=== PATIENT | male | born 1950 | race Caucasian/White ===

== ENCOUNTER → 2016-11-10 | Outpatient (CLI) | payer MEDICARE ==
--- NOTE | 2016-11-10 12:21 | XR ---
EXAMINATION TYPE: XR chest 2V DATE OF EXAM: 11/10/2016 11:40 AM COMPARISON: NONE INDICATION: Short of breath, history of COPD TECHNIQUE: 2 view chest FINDINGS: The heart size is normal. The pulmonary vasculature is normal. The lungs are clear. There is hyperinflation flattened diaphragms compatible COPD. Some minimal calcification may be along the right diaphragm. IMPRESSION: 1. COPD
== END | disposition home or self-care (01) ==
LOC: RADXRMAIN 11:20
PROVIDERS: ATTEND Internal Medicine Critical Care Medicine
DX: J44.9 Chronic obstructive pulmonary disease, unspecified (principal); I26.99 Other pulmonary embolism without acute cor pulmonale
CPT/HCPCS: 71020

== ENCOUNTER → 2017-01-18 | Day surgery (SDC) | payer MEDICARE ==
[2017-01-13 15:09] VITALS: BMI 35.2
[~2017-01-18] MED LIST: AMPICILLIN 1,000 MG in SODIUM CHLORIDE 0.9% 50 ML IVPB ONE; DEXAMETHASONE SOD PHOSPHATE 10 MG/ML 1 ML VIAL IV ONE; GENTAMICIN 160 MG in SODIUM CHLORIDE 0.9% 100 ML IVPB ONE; GENTAMICIN 80 MG in SODIUM CHLORIDE 0.9% 500 ML IRRIGATION ONE; HYDROcodone/APAP 7.5-325MG 1 EACH TAB PO ONE; HYDROmorphone (PF) 1 MG/ML ONE; HYDROmorphone 1 MG/ML 1 ML SYRINGE IVP PRN; LACTATED RINGERS 1,000 ML IV ONE; LACTATED RINGERS 1,000 ML IV SCH; LIDOCAINE 1% 20 ML VIAL (10MG/ML) FOR IV START INTRADERMA PRN; MIDAZOLAM 2 MG/2 ML VIAL IV PRN; MIDAZOLAM 2 MG/2 ML VIAL ONE; ONDANSETRON 4 MG/2 ML VIAL IVP ONE; PROPOFOL 10 MG/ML 20 ML VIAL IV ONE; SCOPOLAMINE 1.5MG/72HR PATCH TRANSDERM ONE; SUCCINYLCHOLINE CHLORIDE VIAL 200 MG/10 ML VIAL IV ONE; ePHEDrine 50 MG/ML 1 ML AMP ONE; fentaNYL (PF) 50 MCG/ML 2 ML AMP ONE
[2017-01-18 09:57] VITALS: RESP 16
--- NOTE | 2017-01-18 12:55 | P.OP ---
Date of Procedure: 01/18/17 Preoperative Diagnosis: Organic impotence Postoperative Diagnosis: Organic impotence Procedure(s) Performed: Insertion of AMS inflatable penile prosthesis surgeries CX size 15 cm +4 cm rear -tip clinical secretary, 65 mL balloon Implants: Anesthesia: [place] Surgeon: Justo Springer Estimated Blood Loss (ml): 50 Pathology: none sent Condition: stable Disposition: PACU Indications for Procedure: Patient is a 66-year-old gentleman with organic impotence who was failed all conservative measures of treatment comes for an inflatable penile prosthesis Operative Findings: Description of Procedure: Patient is brought to the operating suite and given a successful general endotracheal anesthesia. He is prepped and draped sterilely. An infrapubic incision is made from the base of the penis to just above the pubis. The rectus fascias identified and opened in the midline. The prevesical space is developed. A 65 mL reservoir is placed in the prevesical space with tubing brought out through the right external inguinal ring. The balloon was filled with 65 mL of saline. The rectus fascias closed with interrupted 0 PDS. Each corpora identified and cleaned. Bilateral corporotomies were made. The corpora dilated with Metzenbaum scissors and then Hegar dilators 9-13 proximally and distally. The length of the cylinders measured 10 cm proximal and 9 cm distal bilaterally. 15 cm implants with 4 cm rear-tip extenders will be used. Using the Chai needle and Alana introducer each cylinder is placed through the distal corpora. The proximal cylinders placed in the proximal corpora. Each cylinders inflated and the erection is appropriate without ST deformity. There is no buckling of the implant. The corporotomies are closed with running 3-0 PDS. I then placed the pump in the right hemiscrotum such the button is anterior. I connected the reservoir to the pump with straight connectors. The wound is closed with 3-0 chromic and 4-0 Monocryl. Loss is 50 mL. He tolerated procedure well be discharged home upon recovery. End of dictation
[2017-01-18 13:09] VITALS: TEMP 97.4
[2017-01-18 14:57] VITALS: BP 149/72; PULSE 96
== END ==
LOC: OR 08:55
PROVIDERS: ATTEND Urology
DX: N52.9 Male erectile dysfunction, unspecified (principal); I11.0 Hypertensive heart disease with heart failure; I50.9 Heart failure, unspecified; I34.0 Nonrheumatic mitral (valve) insufficiency; E78.00 Pure hypercholesterolemia, unspecified; M35.00 Sjogren syndrome, unspecified; K21.9 Gastro-esophageal reflux disease without esophagitis; N40.0 Benign prostatic hyperplasia without lower urinary tract symptoms; M19.90 Unspecified osteoarthritis, unspecified site; F90.9 Attention-deficit hyperactivity disorder, unspecified type; F41.9 Anxiety disorder, unspecified; F32.9 Major depressive disorder, single episode, unspecified; F43.10 Post-traumatic stress disorder, unspecified; J45.909 Unspecified asthma, uncomplicated; J44.9 Chronic obstructive pulmonary disease, unspecified; E78.2 Mixed hyperlipidemia; G47.30 Sleep apnea, unspecified; Z95.5 Presence of coronary angioplasty implant and graft; I73.9 Peripheral vascular disease, unspecified; I25.10 Atherosclerotic heart disease of native coronary artery without angina pectoris; I42.9 Cardiomyopathy, unspecified; E11.9 Type 2 diabetes mellitus without complications; Z79.82 Long term (current) use of aspirin; Z79.01 Long term (current) use of anticoagulants; Z79.51 Long term (current) use of inhaled steroids; Z79.899 Other long term (current) drug therapy; Z91.011 Allergy to milk products; Z88.8 Allergy status to other drugs, medicaments and biological substances; Z91.018 Allergy to other foods; Z91.09 Other allergy status, other than to drugs and biological substances; Z87.891 Personal history of nicotine dependence
CPT/HCPCS: 54405; C1713; C1813; J2250; J0330; J1580 ×2; J1100; J2405; J3010; J0290; J1170; J2704

== ENCOUNTER 2017-01-31 15:25 | Emergency (ER) | payer MEDICARE ==
--- NOTE | 2017-01-31 16:00 | ED ---
Extremity Problem HPI - General Chief complaint: Extremity Problem,Nontraumatic Stated complaint: Poss blood clot Time Seen by Provider: 01/31/17 15:41 Source: patient, RN notes reviewed Mode of arrival: ambulatory Limitations: no limitations - History of Present Illness Initial comments: Patient is a 66-year-old male presents to the emergency room for evaluation of left ankle pain. Patient states pain began yesterday. Patient states that he has some redness in his Achilles area and has pain while flexing and extending his ankle. 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 Patient states that he is on Xarelto. Patient states he's afraid that he has a blood clot. Patient does state that he had a penile implant about 2 weeks ago. Patient denies any issues or problems with his surgical procedure. Patient denies numbness or tingling in his toes. Patient denies any certain injury to his ankle. Patient denies any trauma to his ankle. Patient denies history of gout. Patient does admit he uses a repetitive motion with his ankle while getting out of his chair that could've aggravated his ankle. Patient denies fevers or chills. Patient denies headache or dizziness. Patient denies nausea or vomiting. - Related Data Home Medications Medication Instructions Recorded Confirmed Acetaminophen Tab [Tylenol] 1,000 mg PO Q6HR PRN 01/13/14 01/31/17 Multivitamin/Iron/Folic Acid 1 tab PO DAILY 01/13/14 01/31/17 [Centrum Complete Multivit Tab] Ascorbic Acid [Vitamin C] 500 mg PO DAILY 09/16/15 01/31/17 Aspirin EC [Ecotrin Low Dose] 81 mg PO DAILY 09/16/15 01/31/17 Betamethasone Dipropionate 1 applic TOPICAL DAILY PRN 09/16/15 01/31/17 [Diprolene AF 0.05% Cream] Budesonide-Formot 160-4.5 Mcg 2 puff INHALATION RT-BID 09/16/15 01/31/17 [Symbicort 160-4.5 Mcg Inhaler] Cholecalciferol [Vitamin D3] 5,000 unit PO DAILY 09/16/15 01/31/17 Testosterone Cypionate 200 mg IM Q14D 09/16/15 01/31/17 [Depo-Testosterone] Albuterol Sulfate [Proventil Hfa] 2 puff INHALATION RT-Q6H PRN 01/13/17 01/31/17 Mirabegron [Myrbetriq] 25 mg PO DAILY 01/13/17 01/31/17 Mirtazapine 30 mg PO HS 01/13/17 01/31/17 Nebivolol [Bystolic] 5 mg PO BID 01/13/17 01/31/17 Pseudoephedrine 12Hr [Sudafed 12Hr] 120 mg PO Q12H 01/13/17 01/31/17 Rivaroxaban [Xarelto] 20 mg PO DAILY 01/13/17 01/31/17 Tiotropium 18 Mcg/Puff [Spiriva] 1 cap INHALATION RT-DAILY 01/13/17 01/31/17 Atomoxetine HCl [Strattera] 40 mg PO DAILY 01/31/17 01/31/17 Atomoxetine HCl [Strattera] 60 mg PO DAILY 01/31/17 01/31/17 Loratadine [Claritin] 10 mg PO DAILY 01/31/17 01/31/17 Nitroglycerin Sl Tabs [Nitrostat] 0.4 mg SUBLINGUAL Q5M PRN 01/31/17 01/31/17 QUEtiapine FUMARATE [QUEtiapine 200 mg PO HS 01/31/17 01/31/17 FUMARATE ER] QUEtiapine [SEROquel] 50 mg PO HS 01/31/17 01/31/17 Rosuvastatin [Crestor] 20 mg PO HS 01/31/17 01/31/17 Spironolactone [Aldactone] 25 mg PO DAILY 01/31/17 01/31/17 Valsartan 320 mg PO DAILY 01/31/17 01/31/17 Venlafaxine HCl [Effexor] 150 mg PO BID 01/31/17 01/31/17 Previous Rx's Medication Instructions Recorded Esomeprazole Magnesium [NexIUM] 40 mg PO DAILY #30 capsule. 01/16/14 Furosemide [Lasix] 20 mg PO DAILY PRN #30 tablet 01/16/14 Allergies Allergy/AdvReac Type Severity Reaction Status Date / Time benzoic acid Allergy Mild Unknown Verified 01/31/17 16:12 corn Allergy Unknown Verified 01/31/17 16:12 epoxy resin Allergy Unknown Verified 01/31/17 16:12 milk Allergy Unknown Verified 01/31/17 16:12 wheat Allergy Unknown Verified 01/31/17 16:12 BASALM OF EDWARDO Allergy Mild Unknown Uncoded 09/17/15 09:16 DIALKYL THIOUREAS Allergy Mild Unknown Uncoded 09/17/15 09:16 DISPERSE BLUE 124 Allergy Mild Unknown Uncoded 09/17/15 09:16 RYAN GRASS Allergy Unknown Uncoded 01/31/17 16:12 neoprene Allergy Unknown Uncoded 01/13/17 14:44 Review of Systems ROS Statement: Those systems with pertinent positive or pertinent negative responses have been documented in the HPI. ROS Other: All systems not noted in ROS Statement are negative. Past Medical History Past Medical History: Coronary Artery Disease (CAD), Heart Failure, COPD, GERD/ Reflux, Hyperlipidemia, Hypertension, Myocardial Infarction (IA), Osteoarthritis (OA), Prostate Disorder, Skin Disorder, Sleep Apnea/CPAP/BIPAP, Vascular Disorder Additional Past Medical History / Comment(s): Right subclavian steal syndrome with paralysis of the right diaphragm, benign prostatic hypertrophy Last Myocardial Infarction Date:: 2008 History of Any Multi-Drug Resistant Organisms: None Reported Past Surgical History: Heart Catheterization, Joint Replacement, Orthopedic Surgery, Prostate Surgery Additional Past Surgical History / Comment(s): Bilateral HIP REPLACEMENT, PERRY KNEE REPLACEMENT, TURP, TRANSPORT OF THE SUBCLAVIAN, STENT OF THE SUBCLAVIAN. penile implant Past Anesthesia/Blood Transfusion Reactions: No Reported Reaction Past Psychological History: ADD/ADHD, Depression, PTSD Smoking Status: Former smoker Past Alcohol Use History: None Reported Past Drug Use History: None Reported - Past Family History Father Family Medical History: Cancer Additional Family Medical History / Comment(s): Father from mesothelioma lung cancer Mother Family Medical History: Hypertension Additional Family Medical History / Comment(s): Mother is living and is 88 yrs old General Exam - General Exam Comments Initial Comments: Sitting in exam room, no distress. Limitations: no limitations General appearance: alert, in no apparent distress Head exam: Present: atraumatic, normocephalic, normal inspection Eye exam: Present: normal appearance ENT exam: Present: normal exam Neck exam: Present: normal inspection Respiratory exam: Present: normal lung sounds bilaterally. Absent: respiratory distress Cardiovascular Exam: Present: regular rate, normal rhythm, normal heart sounds Right Lower Leg exam: Absent: tenderness Ankle exam: Present: full ROM, swelling (Swelling and erythema at the insertion site of the Achilles tendon. No fluctuance noted.). Absent: normal inspection Neurovascular tendon exam: Present: no vascular compromise. Absent: pulse deficit (2+ dorsal pedal and posterior tibial pulses), abnormal cap refill ( Capillary refill less than 2 seconds) Back exam: Present: normal inspection Neurological exam: Present: alert, oriented X3, CN II-XII intact, normal gait Psychiatric exam: Present: normal affect, normal mood Skin exam: Present: warm, dry, intact, normal color. Absent: rash Course Vital Signs 01/31/17 01/31/17 01/31/17 15:27 16:37 17:34 Temperature 98.1 F 98.5 F 98.3 F Pulse Rate 104 H 98 99 Respiratory 20 18 18 Rate Blood Pressure 153/86 137/72 129/89 O2 Sat by Pulse 96 92 L 93 L Oximetry Medical Decision Making - Medical Decision Making Patient is a 66-year-old male presents to the emergency room for evaluation of right ankle pain. Patient does have a history of DVTs. Patient is currently on Xarelto. Right lower extremity ultrasound negative for acute DVT. Right ankle x-ray: No acute bony abnormality. Findings at the insertion of the Achilles tendon as described, there may be tendinosis or partial tear. Patient will be placed in the OCL posterior splint and advised to follow-up with orthopedic nurse. Patient does have redness and swelling at the area. Advised patient if he notices more swelling and redness to return to the emergency room as soon as possible. Patient states he understands everything that was discussed with him. Case discussed with Dr. Anderson who also evaluated patient and agrees with treatment plan. - Radiology Data Radiology results: report reviewed, image reviewed Disposition Clinical Impression: Tendonitis, Achilles, right Disposition: HOME SELF-CARE Condition: Good Instructions: Achilles Tendinitis (ED) Additional Instructions: Rest, elevate and ice on and off for 10-15 minutes for the next 24-48 hours. Please follow-up with orthopedic nurse in 24-48 hours for reevaluation. If new symptoms develop or symptoms worsen, please return to the ER. Referrals: Bernabe Polo DO [Primary Care Provider] - 1-2 days Antonio Zambrano DO [Doctor of Osteopathic Medicine] - 1-2 days Time of Disposition: 17:34
[2017-01-31 16:43] VITALS: RESP 18
--- NOTE | 2017-01-31 16:44 | US ---
EXAMINATION TYPE: US venous doppler duplex LE RT DATE OF EXAM: 01/31/2017 4:30 PM COMPARISON: NONE CLINICAL HISTORY: 66-year-old male with Pain, swelling. SIDE PERFORMED: Right TECHNIQUE: The lower extremity deep venous system is examined utilizing real time linear array sonog ligia with graded compression, doppler sonography and color-flow sonography. FINDINGS: VESSELS IMAGED: External Iliac Vein (EIV) Common Femoral Vein Deep Femoral Vein Greater Saphenous Vein * Femoral Vein Popliteal Vein Small Saphenous Vein * Proximal Calf Veins (* superficial vessels) Right Leg: Appears negative for acute, occlusive DVT, some chronic changes, CFV at GSV CFV junction not fully compressible, seen on previous as well. IMPRESSION: 1. No evidence for acute DVT within the right lower extremity imaged from the groin to the upper calf . 2. There our some chronic wall changes at the common femoral vein and common femoral vein/greater sap henous vein junction with incomplete compressibility. This was seen previously as well. Some minimal residual nonocclusive chronic DVT is suggested.
--- NOTE | 2017-01-31 17:05 | XR ---
Right ankle HISTORY: Pain and swelling 3 views of the right ankle Comparison to previous exam 01/15/2014 Small ossific densities again noted at the level of the medial malleolus are chronic and well-cortica jason. Alignment and bone mineralization, joint space maintained. No acute fracture or dislocation. Malik ntar calcaneal spur, enthesophyte at the insertion of the Achilles tendon again noted. There is soft tissue swelling at the distal Achilles tendon, correlate for tendinosis. Degenerative changes are pre sent at the intertarsal joints. IMPRESSION: No acute bone abnormality. Findings at the insertion of the Achilles tendon as described, there may be tendinosis or partial tear. Correlate.
[2017-01-31 17:36] VITALS: BP 129/89; PULSE 99; TEMP 98.3
== END 2017-01-31 17:48 | disposition home or self-care (01) ==
LOC: EC 15:25
DX: M76.61 Achilles tendinitis, right leg (principal); J44.9 Chronic obstructive pulmonary disease, unspecified; I25.10 Atherosclerotic heart disease of native coronary artery without angina pectoris; F32.9 Major depressive disorder, single episode, unspecified; I11.0 Hypertensive heart disease with heart failure; I50.9 Heart failure, unspecified; E78.5 Hyperlipidemia, unspecified; M19.90 Unspecified osteoarthritis, unspecified site; Z86.718 Personal history of other venous thrombosis and embolism; Z86.711 Personal history of pulmonary embolism; Z91.011 Allergy to milk products; Z91.018 Allergy to other foods; Z87.891 Personal history of nicotine dependence; Z91.09 Other allergy status, other than to drugs and biological substances; Z91.048 Other nonmedicinal substance allergy status; Z79.01 Long term (current) use of anticoagulants; Z79.51 Long term (current) use of inhaled steroids; Z79.82 Long term (current) use of aspirin; Z79.899 Other long term (current) drug therapy
CPT/HCPCS: 99284

== ENCOUNTER 2017-08-11 15:50 | Inpatient (IN) | payer MEDICARE ==
--- NOTE | 2017-08-11 14:22 | XR ---
EXAMINATION TYPE: XR chest 2V DATE OF EXAM: 08/11/2017 COMPARISON: Prior exam 11/10/2016 HISTORY: COPD, asthma TECHNIQUE: Frontal and lateral views of the chest are obtained. FINDINGS: There is no focal air space opacity, pleural effusion, or pneumothorax seen. Patchy basila r density may represent atelectasis or scarring as on prior. The cardiac silhouette size is stable. There is increased AP diameter chest with prominent lung volume compatible with underlying COPD. Nodu lar density in the left lower hemithorax is stable. Postop changes noted to the right shoulder. The o sseous structures are intact. IMPRESSION: No acute cardiopulmonary process.
--- NOTE | 2017-08-11 14:46 | CT ---
EXAMINATION TYPE: CT chest wo con DATE OF EXAM: 08/11/2017 COMPARISON: NONE HISTORY: Shortness of breath for [address] DLP: 590.3 mGycm. Automated Exposure Control for Dose Reduction was Utilized. TECHNIQUE: CT scan of the thorax is performed without IV contrast. FINDINGS: LUNGS: The lungs are grossly clear, there is no concerning parenchymal mass or nodule identified. Ca lcified granuloma are present bilaterally There is no pleural effusion or pneumothorax seen. The tra cheobronchial tree is patent. Metallic density is linear noted along the right hemidiaphragm. Parench ymal interstitial linear densities likely reflects scarring. MEDIASTINUM: Lack of IV contrast is noted to limit evaluation for mediastinal and especially hilar ad enopathy. There are no definitive greater than 1 cm hilar or mediastinal lymph nodes. No cardiomega ly or pericardial effusion is seen. Proximal subclavian artery on the right shows a stent in place. C oronary artery calcifications are present. Calcified subcarinal nodes present. OTHER: Calcified gallstone is present. Cortical cysts associated with the right kidney. Granuloma pre sent within the spleen. Pancreas is fatty replaced. IMPRESSION: Noncontrast exam may limit sensitivity. Old granulomatous disease. Correlate for postop c hange along the right hemidiaphragm. Areas of scarring within the lungs. Cholelithiasis. Additional f indings above.
--- NOTE | 2017-08-11 15:37 | NM ---
"EXAMINATION TYPE: NM pul vent and perfuse DATE OF EXAM: 08/11/2017 COMPARISON: Previous exam 01/13/2014 HISTORY: Pulmonary embolism, I 26.99 TECHNIQUE: Utilizing inhalation of 70.6 mCi Tc 99m DTPA aerosol and intravenous injection of 5.24 mC i of Tc 99m MAA, ventilation and perfusion images are acquired post injection in multiple projections . FINDINGS: Decreased perfusion is noted in the posterior segment of the right and left upper lobe as compared to ventilation. Medial segment right middle lobe also shows decreased perfusion as compared to ventilat ion. IMPRESSION: Findings compatible with intermediate to high probability of pulmonary embolism. A Red message has been communicated to Cindy Manley MD via the [employer] | Critical Result [employer] on 08/11/2017 3:35 PM, Message ID [id number]."
[2017-08-11] MEDS ORDERED: HEPARIN SODIUM,PORCINE 10,000 UNIT/ML 1 ML VIAL IV ONE (16:08)
[2017-08-11] MEDS ORDERED: HEPARIN SODIUM,PORCINE 5,000 UNIT/ML 1 ML VIAL IV PRN (16:08)
--- NOTE | 2017-08-11 16:42 | ED ---
General Adult HPI - General Chief complaint: Recheck/Abnormal Lab/Rx Time Seen by Provider: 08/11/17 16:06 Source: patient, RN notes reviewed, old records reviewed Mode of arrival: ambulatory Limitations: no limitations - History of Present Illness Initial comments: 67-year-old male sent in for evaluation of PE. Patient had outpatient VQ scan with High probability for pulmonary embolism. He does have a history of PE and is currently on Xarelto. He has been complaining of worsening dyspnea for the past 3-4 weeks. He was sent for computed tomography scan, chest x-ray and VQ scan by his pipe cleaner. Denies any chest pain. States he does have baseline cough which is productive of sputum, and history of COPD. Patient states he's had worsening right lower extremity swelling compared to the left this is been present for several weeks as well. Denies fever or chills. Denies abdominal pain nausea vomiting. Denies melena or rectal bleeding - Related Data Home Medications Medication Instructions Recorded Confirmed Acetaminophen Tab [Tylenol] 1,000 mg PO Q4-6H PRN 01/13/14 08/11/17 Multivitamin/Iron/Folic Acid 1 tab PO DAILY 01/13/14 08/11/17 [Centrum Complete Multivit Tab] Ascorbic Acid [Vitamin C] 500 mg PO DAILY 09/16/15 08/11/17 Aspirin EC [Ecotrin Low Dose] 81 mg PO DAILY 09/16/15 08/11/17 Betamethasone Dipropionate 1 applic TOPICAL DAILY PRN 09/16/15 08/11/17 [Diprolene AF 0.05% Cream] Budesonide-Formot 160-4.5 Mcg 2 puff INHALATION RT-BID 09/16/15 08/11/17 [Symbicort 160-4.5 Mcg Inhaler] Cholecalciferol [Vitamin D3] 5,000 unit PO DAILY 09/16/15 08/11/17 Testosterone Cypionate 200 mg IM Q14D 09/16/15 08/11/17 [Depo-Testosterone] Albuterol Sulfate [Proventil Hfa] 2 puff INHALATION RT-Q6H PRN 01/13/17 08/11/17 Mirtazapine 30 mg PO HS 01/13/17 08/11/17 Rivaroxaban [Xarelto] 20 mg PO DAILY 01/13/17 08/11/17 Tiotropium 18 Mcg/Puff [Spiriva] 1 cap INHALATION RT-DAILY 01/13/17 08/11/17 Atomoxetine HCl [Strattera] 40 mg PO DAILY 01/31/17 08/11/17 Atomoxetine HCl [Strattera] 60 mg PO DAILY 01/31/17 08/11/17 Loratadine [Claritin] 10 mg PO DAILY 01/31/17 08/11/17 Nitroglycerin Sl Tabs [Nitrostat] 0.4 mg SUBLINGUAL Q5M PRN 01/31/17 08/11/17 QUEtiapine FUMARATE [QUEtiapine 200 mg PO HS 01/31/17 08/11/17 FUMARATE ER] QUEtiapine [SEROquel] 50 mg PO HS 01/31/17 08/11/17 Rosuvastatin [Crestor] 20 mg PO HS 01/31/17 08/11/17 Spironolactone [Aldactone] 25 mg PO DAILY 01/31/17 08/11/17 Venlafaxine HCl [Effexor] 150 mg PO BID 01/31/17 08/11/17 Furosemide [Lasix] 40 mg PO DAILY PRN 08/11/17 08/11/17 Nebivolol HCl [Bystolic] 10 mg PO DAILY 08/11/17 08/11/17 Silodosin [Rapaflo] 8 mg PO HS 08/11/17 08/11/17 Valsartan [Diovan] 160 mg PO DAILY 08/11/17 08/11/17 Previous Rx's Medication Instructions Recorded Esomeprazole Magnesium [NexIUM] 40 mg PO DAILY #30 capsule. 01/16/14 Allergies Allergy/AdvReac Type Severity Reaction Status Date / Time benzoic acid Allergy Mild Unknown Verified 08/11/17 16:38 corn Allergy Unknown Verified 08/11/17 16:38 epoxy resin Allergy Unknown Verified 08/11/17 16:38 milk Allergy Unknown Verified 08/11/17 16:38 mirabegron [From Myrbetriq] Allergy Rash/Hives Verified 08/11/17 16:38 solifenacin [From Vesicare] Allergy Rash/Hives Verified 08/11/17 16:38 wheat Allergy Unknown Verified 08/11/17 16:38 BASALM OF EDWARDO Allergy Mild Unknown Uncoded 09/17/15 09:16 DIALKYL THIOUREAS Allergy Mild Unknown Uncoded 09/17/15 09:16 DISPERSE BLUE 124 Allergy Mild Unknown Uncoded 09/17/15 09:16 RYAN GRASS Allergy Unknown Uncoded 01/31/17 16:12 neoprene Allergy Unknown Uncoded 01/13/17 14:44 Review of Systems ROS Statement: Those systems with pertinent positive or pertinent negative responses have been documented in the HPI. ROS Other: All systems not noted in ROS Statement are negative. Past Medical History Past Medical History: Coronary Artery Disease (CAD), Heart Failure, COPD, GERD/ Reflux, Hyperlipidemia, Hypertension, Myocardial Infarction (MT), Osteoarthritis (OA), Prostate Disorder, Skin Disorder, Sleep Apnea/CPAP/BIPAP, Vascular Disorder Additional Past Medical History / Comment(s): Right subclavian steal syndrome with paralysis of the right diaphragm, benign prostatic hypertrophy Last Myocardial Infarction Date:: 2008 History of Any Multi-Drug Resistant Organisms: None Reported Past Surgical History: Heart Catheterization, Joint Replacement, Orthopedic Surgery, Prostate Surgery Additional Past Surgical History / Comment(s): Bilateral HIP REPLACEMENT, PERRY KNEE REPLACEMENT, TURP, TRANSPORT OF THE SUBCLAVIAN, STENT OF THE SUBCLAVIAN. penile implant Past Anesthesia/Blood Transfusion Reactions: No Reported Reaction Past Psychological History: ADD/ADHD, Depression, PTSD Smoking Status: Former smoker Past Alcohol Use History: None Reported Past Drug Use History: None Reported - Past Family History Father Family Medical History: Cancer Additional Family Medical History / Comment(s): Father from mesothelioma lung cancer Mother Family Medical History: Hypertension Additional Family Medical History / Comment(s): Mother is living and is 88 yrs old General Exam Limitations: no limitations General appearance: alert, in no apparent distress Head exam: Present: atraumatic, normocephalic Eye exam: Present: normal appearance, PERRL ENT exam: Present: normal exam, mucous membranes dry Neck exam: Present: normal inspection. Absent: meningismus Respiratory exam: Present: normal lung sounds bilaterally. Absent: respiratory distress, wheezes, rales Cardiovascular Exam: Present: regular rate, normal rhythm GI/Abdominal exam: Present: soft. Absent: distended, tenderness Extremities exam: Present: normal inspection, full ROM, normal capillary refill , pedal edema (Trace pedal edema on the left, 1+ edema on the right) Neurological exam: Present: alert, oriented X3, CN II-XII intact. Absent: motor sensory deficit Psychiatric exam: Present: normal affect, normal mood Skin exam: Present: warm, dry, intact. Absent: cyanosis, diaphoretic Course Vital Signs 08/11/17 08/11/17 08/11/17 15:57 17:00 18:00 Temperature 98.6 F Pulse Rate 89 97 102 H Respiratory 26 H 20 20 Rate Blood Pressure 142/83 119/79 137/88 O2 Sat by Pulse 98 99 97 Oximetry EKG Findings - EKG Comments: EKG Findings:: EKG shows sinus rhythm with PVC, rate of 97, PA interval 134, castration would awaken QTC 431, no ST segment elevation or depression Medical Decision Making - Medical Decision Making 67-year-old male presenting from outpatient radiology with VQ scan which is high probability PE. Patient is on several throat. Laboratory studies are obtained, white blood cell count normal, hemoglobin stable 15.2, creatinine 1.86 which is stable from previous. Patient is started on heparin. He will be admitted. Pulmonology placed on consult. Diagnosis: PE failed outpatient treatment - Lab Data Result diagrams: 08/11/17 16:50 08/11/17 16:50 Lab Results 08/11/17 08/11/17 08/11/17 Range/Units 11:43 16:50 16:50 WBC 7.3 (3.8-10.6) k/uL RBC 4.71 (4.30-5.90) m/uL Hgb 15.2 (13.0-17.5) gm/dL Hct 48.0 (39.0-53.0) % MCV 101.9 H (80.0-100.0) fL MCH 32.4 (25.0-35.0) pg MCHC 31.8 (31.0-37.0) g/dL RDW 15.1 (11.5-15.5) % Plt Count 228 (150-450) k/uL Neutrophils % 74 % Lymphocytes % 15 % Monocytes % 6 % Eosinophils % 2 % Basophils % 1 % Neutrophils # 5.4 (1.3-7.7) k/uL Lymphocytes # 1.1 (1.0-4.8) k/uL Monocytes # 0.5 (0-1.0) k/uL Eosinophils # 0.2 (0-0.7) k/uL Basophils # 0.1 (0-0.2) k/uL Macrocytosis Slight PT (9.0-12.0) sec INR (<1.2) APTT (22.0-30.0) sec Sodium (137-145) mmol/L Potassium (3.5-5.1) mmol/L Chloride (98-107) mmol/L Carbon Dioxide (22-30) mmol/L Anion Gap mmol/L BUN 36 H (9-20) mg/dL Creatinine 1.93 H (0.66-1.25) mg/dL Est GFR (MDRD) Af Amer 42 (>60 ml/min/1.73 sqM) Est GFR (MDRD) Non-Af 35 (>60 ml/min/1.73 sqM) Glucose (74-99) mg/dL Calcium (8.4-10.2) mg/dL Magnesium (1.6-2.3) mg/dL Total Bilirubin (0.2-1.3) mg/dL AST (17-59) U/L ALT (21-72) U/L Alkaline Phosphatase (38-126) U/L Total Creatine Kinase 65 (55-170) U/L CK-MB (CK-2) 0.8 (0.0-2.4) ng/mL CK-MB (CK-2) Rel Index 1.2 Troponin I <0.012 (0.000-0.034) ng/mL NT-Pro-B Natriuret Pep pg/mL Total Protein (6.3-8.2) g/dL Albumin (3.5-5.0) g/dL 08/11/17 08/11/17 08/11/17 Range/Units 16:50 16:50 16:50 WBC (3.8-10.6) k/uL RBC (4.30-5.90) m/uL Hgb (13.0-17.5) gm/dL Hct (39.0-53.0) % MCV (80.0-100.0) fL MCH (25.0-35.0) pg MCHC (31.0-37.0) g/dL RDW (11.5-15.5) % Plt Count (150-450) k/uL Neutrophils % % Lymphocytes % % Monocytes % % Eosinophils % % Basophils % % Neutrophils # (1.3-7.7) k/uL Lymphocytes # (1.0-4.8) k/uL Monocytes # (0-1.0) k/uL Eosinophils # (0-0.7) k/uL Basophils # (0-0.2) k/uL Macrocytosis PT 10.7 (9.0-12.0) sec INR 1.1 (<1.2) APTT 23.7 (22.0-30.0) sec Sodium 142 (137-145) mmol/L Potassium 4.6 (3.5-5.1) mmol/L Chloride 106 (98-107) mmol/L Carbon Dioxide 27 (22-30) mmol/L Anion Gap 9 mmol/L BUN 36 H (9-20) mg/dL Creatinine 1.86 H (0.66-1.25) mg/dL Est GFR (MDRD) Af Amer 44 (>60 ml/min/1.73 sqM) Est GFR (MDRD) Non-Af 36 (>60 ml/min/1.73 sqM) Glucose 101 H (74-99) mg/dL Calcium 9.6 (8.4-10.2) mg/dL Magnesium 1.9 (1.6-2.3) mg/dL Total Bilirubin 0.7 (0.2-1.3) mg/dL AST 30 (17-59) U/L ALT 31 (21-72) U/L Alkaline Phosphatase 43 (38-126) U/L Total Creatine Kinase (55-170) U/L CK-MB (CK-2) (0.0-2.4) ng/mL CK-MB (CK-2) Rel Index Troponin I (0.000-0.034) ng/mL NT-Pro-B Natriuret Pep 148 pg/mL Total Protein 6.9 (6.3-8.2) g/dL Albumin 4.0 (3.5-5.0) g/dL Critical Care Time Critical Care Time: Yes Total Critical Care Time: 35 Disposition Clinical Impression: Pulmonary embolism Disposition: ADMITTED IP TO THIS [facility] Condition: Serious Referrals: Cindy Manley MD [STAFF PHYSICIAN] - 1-2 days Decision to Admit Reason: Admit from EC Decision Date: 08/11/17 Decision Time: 18:43
[2017-08-11] MEDS: HEPARIN SOD,PORK IN 0.45% NACL 25,000 UNIT in 0.45% NACL 1 500ML.BAG IV SCH (17:01)
[2017-08-11 17:11] LABS: Basophils # (A) 0.1 k/uL (0-0.2); Basophils % (A) 1 %; Eosinophils # (A) 0.2 k/uL (0-0.7); Eosinophils % (A) 2 %; HGB 15.2 gm/dL (13.0-17.5); Lymphocytes # (A) 1.1 k/uL (1.0-4.8); Lymphocytes % (A) 15 %; MCH 32.4 pg (25.0-35.0); MCHC 31.8 g/dL (31.0-37.0); MCV 101.9 fL (80.0-100.0); Macrocytosis Slight; Mean Platelet Volume 7.5; Monocytes # (A) 0.5 k/uL (0-1.0); Monocytes % (A) 6 %; Neutrophils # (A) 5.4 k/uL (1.3-7.7); Neutrophils % (A) 74 %; Platelet Count 228 k/uL (150-450); RBC 4.71 m/uL (4.30-5.90); RDW 15.1 % (11.5-15.5); WBC 7.3 k/uL (3.8-10.6)
[2017-08-11 17:18] LABS: Calcium 9.6 mg/dL (8.4-10.2); Magnesium 1.9 mg/dL (1.6-2.3); Potassium 4.6 mmol/L (3.5-5.1); Total Bilirubin 0.7 mg/dL (0.2-1.3); Total Protein 6.9 g/dL (6.3-8.2)
[2017-08-11 17:22] LABS: INR 1.1 (<1.2); Partial Thromboplastin Time 23.7 sec (22.0-30.0); Prothrombin Time 10.7 sec (9.0-12.0)
[2017-08-11 17:43] LABS: Creatine Kinase 65 U/L (55-170)
[2017-08-11 17:56] LABS: Creatine Kinase MB 0.8 ng/mL (0.0-2.4); Troponin I <0.012 ng/mL (0.000-0.034)
[2017-08-11] MEDS ORDERED: NALOXONE 0.4 MG/ML 1 ML VIAL IV PRN (18:38)
[2017-08-11] MEDS ORDERED: ACETAMINOPHEN TAB 325 MG TAB PO PRN (18:38)
[2017-08-11] MEDS ORDERED: HYDROcodone/APAP 5-325MG 1 EACH TAB PO PRN (18:38)
[2017-08-11] MEDS ORDERED: FUROSEMIDE 40 MG TAB PO PRN (18:40)
[2017-08-11 21:11] VITALS: BMI 36.0
[2017-08-11] MEDS ORDERED: BETAMETHASONE DIPROPIONATE 0.05% CREAM 15 GM TUBE TOPICAL PRN (22:15)
[2017-08-11] MEDS ORDERED: QUETIAPINE FUMARATE 200 MG PO SCH (22:15)
[2017-08-11] MEDS ORDERED: QUEtiapine 50 MG TAB PO SCH ×2 (22:15→22:59)
[2017-08-11] MEDS ORDERED: LORATADINE 10 MG TAB PO PRN (22:15)
[2017-08-11] MEDS: ATORVASTATIN 40 MG TAB PO SCH (23:29)
[2017-08-11] MEDS: MIRTAZAPINE 15 MG TAB PO SCH (23:30)
[2017-08-11] MEDS: VENLAFAXINE HCL 75 MG TAB PO SCH (23:30)
[2017-08-11] MEDS: TAMSULOSIN 0.4 MG CAP.ER.24H PO SCH (23:30)
[2017-08-11] MEDS ORDERED: IPRATROPIUM-ALBUTEROL 3 ML NEB INHALATION PRN (23:34)
[2017-08-12] MEDS ORDERED: IPRATROPIUM-ALBUTEROL 3 ML NEB INHALATION SCH
[2017-08-12 06:23] LABS: Basophils % (A) 1 %; Eosinophils # (A) 0.2 k/uL (0-0.7); Eosinophils % (A) 3 %; HCT 47.8 % (39.0-53.0); HGB 14.7 gm/dL (13.0-17.5); Hypochromasia Slight; Lymphocytes # (A) 1.3 k/uL (1.0-4.8); Lymphocytes % (A) 21 %; MCH 31.8 pg (25.0-35.0); MCHC 30.8 g/dL (31.0-37.0); Macrocytosis Slight; Mean Platelet Volume 7.9; Monocytes # (A) 0.4 k/uL (0-1.0); Monocytes % (A) 7 %; Neutrophils % (A) 67 %; Platelet Count 191 k/uL (150-450); RBC 4.64 m/uL (4.30-5.90); RDW 14.8 % (11.5-15.5)
[2017-08-12] MEDS: HEPARIN SOD,PORK IN 0.45% NACL 25,000 UNIT in 0.45% NACL 1 500ML.BAG IV SCH ×2 (06:50→22:00)
[2017-08-12 07:10] LABS: Albumin 3.7 g/dL (3.5-5.0); Calcium 9.2 mg/dL (8.4-10.2); Potassium 4.3 mmol/L (3.5-5.1); Total Bilirubin 0.5 mg/dL (0.2-1.3); Total Protein 6.4 g/dL (6.3-8.2)
[2017-08-12] MEDS ORDERED: SYMBICORT 160-4.5 MCG INHALER INHALATION SCH (08:00)
[2017-08-12] MEDS ORDERED: ASPIRIN 81 MG PO SCH (09:00)
[2017-08-12] MEDS ORDERED: SPIRONOLACTONE 25 MG TAB PO SCH (09:00)
[2017-08-12] MEDS ORDERED: NON-FORMULARY DRUG (Atomoxetine Hcl [Strattera] 40 MG) PO SCH (09:00)
[2017-08-12] MEDS ORDERED: ATOMOXETINE HCL 60 MG PO SCH (09:00)
[2017-08-12] MEDS ORDERED: LORATADINE 10 MG TAB PO SCH ×2 (09:00→15:38)
[2017-08-12] MEDS ORDERED: VALSARTAN 160 MG TAB PO SCH (09:00)
[2017-08-12] MEDS ORDERED: ATOMOXETINE HCL 100 MG PO SCH (09:00)
[2017-08-12] MEDS: VENLAFAXINE HCL 75 MG TAB PO SCH ×2 (09:12→22:01)
[2017-08-12] MEDS: NEBIVOLOL 5 MG TAB PO SCH (11:12)
--- NOTE | 2017-08-12 14:12 | US ---
EXAMINATION TYPE: US venous doppler duplex LE DATE OF EXAM: 08/12/2017 12:55 PM COMPARISON: Previous study dated 01/31/2017. CLINICAL HISTORY: dvt. SOB, PE, pt currently on Heparin, history of DVT Right leg SIDE PERFORMED: Bilateral TECHNIQUE: The lower extremity deep venous system is examined utilizing real time linear array sonog ligia with graded compression, doppler sonography and color-flow sonography. VESSELS IMAGED: External Iliac Vein (EIV) Common Femoral Vein Deep Femoral Vein Greater Saphenous Vein * Femoral Vein Popliteal Vein Small Saphenous Vein * Proximal Calf Veins (* superficial vessels) Right Leg: Negative for DVT Left Leg: Negative for DVT No popliteal fossa lesion is seen. IMPRESSION: THIS EXAMINATION IS NEGATIVE FOR DVT IN BOTH LEGS.
[2017-08-12] MEDS ORDERED: ACETAMINOPHEN TAB 500 MG TAB PO PRN (15:02)
[2017-08-12] MEDS ORDERED: NITROGLYCERIN SL TABS 0.4 MG TAB SUBLINGUAL PRN (15:02)
--- NOTE | 2017-08-12 15:07 | P.HPIM ---
History of Present Illness H&P Date: 08/12/17 Chief Complaint: worsening shortness of breath This is a 67 years old male patient of Dr. Polo with past medical history of pulmonary embolism diagnosed in [place] 2 years ago, history of lower extremity DVT, coronary artery disease no stent, history of heart failure unknown if systolic or diastolic, COPD, hyperlipidemia, hypertension, osteoarthritis, prostate cancer, skin disorder,'s obstructive sleep apnea on CPAP, subclavian steal syndrome with stent placement, history of recent penile implant on 07/27/2016. Patient presents with complaints of worsening shortness of breath that has been going on for the past 2 years since the diagnosis of pulmonary embolism. Patient is currently on maintenance dose of xarelto at 10 mg daily. He endorses significant shortness of breath on walking or using his upper extremities. Patient had a recent surgery in July for penile implant and is due for another surgery in August at [place] Patient denies any chest pain, nausea or vomiting, sweating or chills. He endorses worsening swelling in the right lower extremity. He sees Dr. victor m [facility] for pulmonary embolism and underwent VQ scan which suggested moderate to high probability of pulmonary embolism. Venous Doppler done today was negative for any DVT in the lower extremity. Patient is currently on IV heparin. Vitals are stable patient is afebrile, currently on room air saturating at 94%. CBC suggestive of MCV 103, BNP suggestive of CK D3 with creatinine at baseline. Troponin negative 1. BNP 148. Patient is admitted for management of acute pulmonary embolism. Echo is ordered Review of Systems Constitutional: Denies chills, Denies fever, Denies lethargy, Denies malaise, Denies poor appetite, Denies weakness, Denies weight loss Eyes: denies decreased vision, denies diplopia, denies discharge, denies pain Ears: deny: decreased hearing Ears, nose, mouth and throat: Denies dental pain, Denies headache, Denies nasal discharge, Denies nose pain Cardiovascular: Denies chest pain, Denies decreased exercise tolerance, Denies edema, Denies high blood pressure, Denies irregular heart beat, Denies palpitations, Denies paroxysmal nocturnal dyspnea, Denies rapid heart beat, Denies shortness of breath Respiratory: Denies congestion, Denies cough, Denies cough with sputum,endorses dyspnea on exertion , Denies home oxygen, Denies wheezing Gastrointestinal: Denies abdominal pain, Denies change in bowel habits, Denies coffee ground emesis, Denies early satiety, Denies excessive gas, Denies heartburn, Denies hematemesis, Denies hematochezia, Denies loss of appetite, Denies nausea, Denies vomiting Genitourinary: Denies dysuria, Denies flank pain, Denies kidney stones, Denies menorrhagia, Denies urgency, Denies urinary frequency Musculoskeletal: Denies gait dysfunction, endorses limitation of motion, Denies morning stiffness, Denies muscle cramps Integumentary: Denies rash, Denies wounds, Denies brittle nails, Denies change in hair/nails, Denies darkening of skin Neurological: Denies balance difficulties, Denies change in speech, Denies double vision, Denies gait dysfunction, Denies loss of vision, Denies motor disturbance, Denies numbness, Denies paralysis, Denies paresthesias, Denies seizures Psychiatric: Denies anxiety, Denies depression Endocrine: Denies excessive sweating, Denies excessive thirst, Denies high blood sugars, Denies palpitations Hematologic/Lymphatic: Denies easy bruising, Denies lymphadenopathy Past Medical History Past Medical History: Coronary Artery Disease (CAD), Chest Pain / Angina, Heart Failure (unknown diastolic or systolic ), COPD, Deep Vein Thrombosis (DVT), GERD /Reflux, Hyperlipidemia, Hypertension, Myocardial Infarction (NH), Osteoarthritis (OA), Prostate Disorder, Pulmonary Embolus (PE), Skin Disorder, Sleep Apnea/CPAP/BIPAP, Vascular Disorder Additional Past Medical History / Comment(s): Right subclavian steal syndrome with paralysis of the right diaphragm, benign prostatic hypertrophy, bladder retention Last Myocardial Infarction Date:: 2008 History of Any Multi-Drug Resistant Organisms: None Reported Past Surgical History: Heart Catheterization, Joint Replacement, Orthopedic Surgery, Prostate Surgery Additional Past Surgical History / Comment(s): Bilateral HIP REPLACEMENT, PERRY KNEE REPLACEMENT, TURP, TRANSPORT OF THE SUBCLAVIAN, STENT OF THE SUBCLAVIAN, B/ L shoulder. penile implant Past Anesthesia/Blood Transfusion Reactions: No Reported Reaction Past Psychological History: ADD/ADHD, Depression, PTSD Additional Psychological History / Comment(s): Pt resides with his spouse. He has a cane and a walker he uses. He drives. He is independent. Smoking Status: Former smoker Past Alcohol Use History: None Reported Additional Past Alcohol Use History / Comment(s): Patient was a smoker one pack per day for 37 years and quit in 2004. He denies any medical marijuana, marijuana, street drug or alcohol use. He lives at home with his . Past Drug Use History: None Reported - Past Family History Father Family Medical History: Cancer Additional Family Medical History / Comment(s): Father from mesothelioma lung cancer Mother Family Medical History: CVA/TIA, Hypertension Additional Family Medical History / Comment(s): Mother is living and is 88 yrs old Medications and Allergies Home Medications Medication Instructions Recorded Confirmed Type Acetaminophen Tab [Tylenol] 1,000 mg PO Q4-6H PRN 01/13/14 08/11/17 History Multivitamin/Iron/Folic Acid 1 tab PO DAILY 01/13/14 08/11/17 History [Centrum Complete Multivit Tab] Esomeprazole Magnesium [NexIUM] 40 mg PO DAILY #30 capsule. 01/16/14 08/11/17 Rx Ascorbic Acid [Vitamin C] 500 mg PO DAILY 09/16/15 08/11/17 History Aspirin EC [Ecotrin Low Dose] 81 mg PO DAILY 09/16/15 08/11/17 History Betamethasone Dipropionate 1 applic TOPICAL DAILY PRN 09/16/15 08/11/17 History [Diprolene AF 0.05% Cream] Budesonide-Formot 160-4.5 Mcg 2 puff INHALATION RT-BID 09/16/15 08/11/17 History [Symbicort 160-4.5 Mcg Inhaler] Cholecalciferol [Vitamin D3] 5,000 unit PO DAILY 09/16/15 08/11/17 History Testosterone Cypionate 200 mg IM Q14D 09/16/15 08/11/17 History [Depo-Testosterone] Albuterol Sulfate [Proventil Hfa] 2 puff INHALATION RT-Q6H PRN 01/13/17 History Mirtazapine 30 mg PO HS 01/13/17 08/11/17 History Rivaroxaban [Xarelto] 20 mg PO DAILY 01/13/17 08/11/17 History Tiotropium 18 Mcg/Puff [Spiriva] 1 cap INHALATION RT-DAILY 01/13/17 08/11/17 History Atomoxetine HCl [Strattera] 40 mg PO DAILY 01/31/17 08/11/17 History Atomoxetine HCl [Strattera] 60 mg PO DAILY 01/31/17 08/11/17 History Loratadine [Claritin] 10 mg PO DAILY 01/31/17 08/11/17 History Nitroglycerin Sl Tabs [Nitrostat] 0.4 mg SUBLINGUAL Q5M PRN 01/31/17 08/11/17 History QUEtiapine FUMARATE [QUEtiapine 200 mg PO HS 01/31/17 08/11/17 History FUMARATE ER] QUEtiapine [SEROquel] 50 mg PO HS 01/31/17 08/11/17 History Rosuvastatin [Crestor] 20 mg PO HS 01/31/17 08/11/17 History Spironolactone [Aldactone] 25 mg PO DAILY 01/31/17 08/11/17 History Venlafaxine HCl [Effexor] 150 mg PO BID 01/31/17 08/11/17 History Cetirizine HCl [Zyrtec] 10 mg PO DAILY PRN 08/11/17 08/11/17 History Furosemide [Lasix] 40 mg PO DAILY PRN 08/11/17 08/11/17 History Nebivolol HCl [Bystolic] 10 mg PO DAILY 08/11/17 08/11/17 History Silodosin [Rapaflo] 8 mg PO HS 08/11/17 08/11/17 History Valsartan [Diovan] 160 mg PO DAILY 08/11/17 08/11/17 History Allergies Allergy/AdvReac Type Severity Reaction Status Date / Time benzoic acid Allergy Mild Unknown Verified 08/11/17 16:38 corn Allergy Unknown Verified 08/11/17 16:38 epoxy resin Allergy Unknown Verified 08/11/17 16:38 milk Allergy Unknown Verified 08/11/17 16:38 [email or web address] [From Myrbetriq] Allergy Rash/Hives Verified 08/11/17 16:38 solifenacin [From Vesicare] Allergy Rash/Hives Verified 08/11/17 16:38 wheat Allergy Unknown Verified 08/11/17 16:38 BASALM OF EDWARDO Allergy Mild Unknown Uncoded 09/17/15 09:16 DIALKYL THIOUREAS Allergy Mild Unknown Uncoded 09/17/15 09:16 DISPERSE BLUE 124 Allergy Mild Unknown Uncoded 09/17/15 09:16 RYAN GRASS Allergy Unknown Uncoded 01/31/17 16:12 neoprene Allergy Unknown Uncoded 01/13/17 14:44 Physical Exam Vitals: Vital Signs Temp Pulse Pulse Resp BP BP Pulse Ox 08/12/17 11:21 98.2 F 81 18 135/80 94 L 08/12/17 08:00 97.8 F 88 18 113/70 94 L 08/12/17 04:00 97.4 F L 77 18 100/64 94 L 08/12/17 00:00 98 18 143/87 94 L 08/11/17 20:20 98.5 F 98 18 119/98 96 08/11/17 20:06 98.5 F 100 18 148/77 96 08/11/17 19:00 103 H 20 116/69 97 08/11/17 18:00 102 H 20 137/88 97 08/11/17 17:00 97 20 119/79 99 08/11/17 15:57 98.6 F 89 26 H 142/83 98 Intake and Output 08/11/17 08/12/17 08/12/17 22:59 06:59 14:59 Intake Total 465.404 180 Output Total 200 250 275 Balance -200 215.404 -95 Intake: Intake, IV Titration 465.404 Amount Heparin Sod,Pork in 0.45% 465.404 NaCl 25,000 unit In 0.45 % NaCl 1 500ml.bag @ 18 UNITS/KG/HR 42.94 mls/hr IV .[id number] [facility] Rx#: [id number] Oral 180 Output: Urine 200 250 275 Other: Voiding Method Urinal Toilet Urinal # Voids 1 1 Weight 120.6 kg 120.6 kg - Constitutional General appearance: cooperative, no acute distress, obese, get short of breath on talking for a long time - EENT Eyes: anicteric sclerae, PERRLA, normal appearance ENT: hearing grossly normal - Neck Neck: no lymphadenopathy, normal ROM, no other, no rigidity, no stridor, no thyromegaly - Respiratory Respiratory: bilateral: CTA, negative: diminished, dullness, rales, rhonchi - Cardiovascular Rhythm: regular Heart sounds: normal: S1, S2 Abnormal Heart Sounds: no systolic murmur, no diastolic murmur, no rub, no S3 Gallop, no S4 Gallop, no click, no other - Gastrointestinal General gastrointestinal: normal bowel sounds, soft - Integumentary Integumentary: no rash - Neurologic Neurologic: CNII-XII intact - Musculoskeletal Musculoskeletal: gait normal, strength equal bilaterally no lower extremity edema - Psychiatric Psychiatric: A&O x's 3, appropriate affect Results CBC & Chem 7: 08/12/17 05:25 08/12/17 05:25 Labs: Abnormal Lab Results - Last 24 Hours (Table) 08/11/17 08/11/17 08/11/17 Range/Units 11:43 16:50 16:50 MCV 101.9 H (80.0-100.0) fL MCHC (31.0-37.0) g/dL APTT (22.0-30.0) sec BUN 36 H 36 H (9-20) mg/dL Creatinine 1.93 H 1.86 H (0.66-1.25) mg/dL Glucose 101 H (74-99) mg/dL 08/11/17 08/12/17 08/12/17 Range/Units 22:08 05:25 05:25 MCV 103.0 H (80.0-100.0) fL MCHC 30.8 L (31.0-37.0) g/dL APTT 194.1 H* (22.0-30.0) sec BUN 31 H (9-20) mg/dL Creatinine 1.54 H (0.66-1.25) mg/dL Glucose 112 H (74-99) mg/dL 08/12/17 Range/Units 05:25 MCV (80.0-100.0) fL MCHC (31.0-37.0) g/dL APTT 92.0 H (22.0-30.0) sec BUN (9-20) mg/dL Creatinine (0.66-1.25) mg/dL Glucose (74-99) mg/dL Thrombosis Risk Factor Assmnt - DVT/VTE Prophylaxis DVT/VTE Prophylaxis: Pharmacologic Prophylaxis ordered - Choose All That Apply Any of the Below Risk Factors Present?: Yes Each Factor Represents 1 point: Abnormal pulmonary function (COPD), Minor surgery planned Other Risk Factors: Yes Each Risk Factor Represents 2 Points: Age 61-74 years Other congenital or acquired thrombophilia - If yes, enter type in comment: No Thrombosis Risk Factor Assessment Total Risk Factor Score: 4 Thrombosis Risk Factor Assessment Level: Moderate Risk Assessment and Plan Plan: 1. Shortness of breath on exertion likely secondary to acute pulmonary embolism - history of pulmonary embolism in 2013 on maintenance dose of xarelto at home .Continue heparin drip. Plan to switch to xarelto tomorrow Dr. Cruz consulted. Patient is currently on room air 2. History of DVT of the right leg in December 2013, resolved 3. COPD. Continue albuterol- Atrovent as needed . Continue Symbicort twice daily 4. Hyperlipidemia. Continue Crestor daily. 5. Subclavian steal syndrome status post stent in the right carotid. 6. Benign prostatic hypertrophy. Monitor for urinary retention. Continue Flomax daily 7. History of coronary artery disease with previous myocardial infarction. 8. Obstructive Sleep apnea. Patient to continue his own CPAP machine. 9. Gastroesophageal reflux disease and gastric intestinal prophylaxis. Continue Nexium or equivalent. 10. Hypertension. Continue bystolic 10 mg daily . Hold Lasix and Spiriva lactone. 11. Depression. Continue Cymbalta 150 mg twice daily. 12. History of ADHD. Strattera on hold. 13. Disposition -patient need 1-2 inpatient nights for evaluation of pulmonary embolism 14 chronic kidney disease stage III, stable 15 history of ischemic cardiomyopathy with ejection fraction 40%, current echocardiogram pending for evaluation of right heart strain. 15 CODE STATUS full code
--- NOTE | 2017-08-12 15:07 | P.CNPUL ---
History of Present Illness Consult date: 08/12/17 Requesting physician: Kee Carreon Reason for consult: dyspnea Chief complaint: Exertional shortness of breath History of present illness: This is a very pleasant 67-year-old gentleman who follows with Dr. Polo as his primary care physician. He has a history of obesity, hypertension, hyperlipidemia, coronary artery disease with cardiomyopathy with LV dysfunction , history of right hemidiaphragm paralysis requiring plication secondary to surgery for subclavian steal syndrome. He also has a history of chronic obstructive lung disease, obstructive sleep apnea utilizing CPAP in the outpatient setting, history of erectile dysfunction. The patient had a penile implant done by Dr. Springer in the past but has been having significant problems related to this. He is planning to see a urologist in [facility] to have a revision done. He was seen by Dr. Manley yesterday for a preop clearance after not being seen by us since 2009. He has been maintained on Symbicort and Spiriva along with albuterol. Pulmonary function tests yesterday revealed a FEV1 value of 62%. He did however desaturate into the 80s during a 6 minute walk. He has maintained complaints are that of dyspnea on exertion. He was subsequently sent here yesterday for a CT angiogram to rule out pulmonary embolism which she also has a history of in the past and has been maintained on Xarelto 20 mg daily. The patient's creatinine was elevated and this CT angiogram was not able to be obtained. They did perform a computed tomography scan without contrast of the chest which revealed old granulomatous disease and postop changes along the right hemidiaphragm with scarring within the lungs. No acute abnormalities. A VQ scan was performed and was read as intermediate to high probability for pulmonary embolism hence the patient was admitted for the same. Dopplers of the bilateral lower extremities are negative. He is seen today in consultation on the selective care unit. He is awake and alert in no acute distress. He is resting quite comfortably in bed. He is maintaining O2 saturations in the mid 90s on room air. He's been afebrile. Hemodynamically stable. No leukocytosis. Hemoglobin 14.7. Creatinine 1.54. Echocardiogram is pending. Review of Systems 14 point review of systems was conducted. All negative other than as mentioned in the HPI. Past Medical History Past Medical History: Coronary Artery Disease (CAD), Chest Pain / Angina, Heart Failure, COPD, Deep Vein Thrombosis (DVT), GERD/Reflux, Hyperlipidemia, Hypertension, Myocardial Infarction (DE), Osteoarthritis (OA), Prostate Disorder , Pulmonary Embolus (PE), Skin Disorder, Sleep Apnea/CPAP/BIPAP, Vascular Disorder Additional Past Medical History / Comment(s): Right subclavian steal syndrome with paralysis of the right diaphragm, benign prostatic hypertrophy, bladder retention Last Myocardial Infarction Date:: 2008 History of Any Multi-Drug Resistant Organisms: None Reported Past Surgical History: Heart Catheterization, Joint Replacement, Orthopedic Surgery, Prostate Surgery Additional Past Surgical History / Comment(s): Bilateral HIP REPLACEMENT, PERRY KNEE REPLACEMENT, TURP, TRANSPORT OF THE SUBCLAVIAN, STENT OF THE SUBCLAVIAN, B/ L shoulder. penile implant Past Anesthesia/Blood Transfusion Reactions: No Reported Reaction Past Psychological History: ADD/ADHD, Depression, PTSD Additional Psychological History / Comment(s): Pt resides with his spouse. He has a cane and a walker he uses. He drives. He is independent. Smoking Status: Former smoker Past Alcohol Use History: None Reported Additional Past Alcohol Use History / Comment(s): Patient was a smoker one pack per day for 37 years and quit in 2004. He denies any medical marijuana, marijuana, street drug or alcohol use. He lives at home with his . Past Drug Use History: None Reported - Past Family History Father Family Medical History: Cancer Additional Family Medical History / Comment(s): Father from mesothelioma lung cancer Mother Family Medical History: CVA/TIA, Hypertension Additional Family Medical History / Comment(s): Mother is living and is 88 yrs old Medications and Allergies Home Medications Medication Instructions Recorded Confirmed Type Acetaminophen Tab [Tylenol] 1,000 mg PO Q4-6H PRN 01/13/14 08/11/17 History Multivitamin/Iron/Folic Acid 1 tab PO DAILY 01/13/14 08/11/17 History [Centrum Complete Multivit Tab] Esomeprazole Magnesium [NexIUM] 40 mg PO DAILY #30 capsule. 01/16/14 08/11/17 Rx Ascorbic Acid [Vitamin C] 500 mg PO DAILY 09/16/15 08/11/17 History Aspirin EC [Ecotrin Low Dose] 81 mg PO DAILY 09/16/15 08/11/17 History Betamethasone Dipropionate 1 applic TOPICAL DAILY PRN 09/16/15 08/11/17 History [Diprolene AF 0.05% Cream] Budesonide-Formot 160-4.5 Mcg 2 puff INHALATION RT-BID 09/16/15 08/11/17 History [Symbicort 160-4.5 Mcg Inhaler] Cholecalciferol [Vitamin D3] 5,000 unit PO DAILY 09/16/15 08/11/17 History Testosterone Cypionate 200 mg IM Q14D 09/16/15 08/11/17 History [Depo-Testosterone] Albuterol Sulfate [Proventil Hfa] 2 puff INHALATION RT-Q6H PRN 01/13/17 History Mirtazapine 30 mg PO HS 01/13/17 08/11/17 History Rivaroxaban [Xarelto] 20 mg PO DAILY 01/13/17 08/11/17 History Tiotropium 18 Mcg/Puff [Spiriva] 1 cap INHALATION RT-DAILY 01/13/17 08/11/17 History Atomoxetine HCl [Strattera] 40 mg PO DAILY 01/31/17 08/11/17 History Atomoxetine HCl [Strattera] 60 mg PO DAILY 01/31/17 08/11/17 History Loratadine [Claritin] 10 mg PO DAILY 01/31/17 08/11/17 History Nitroglycerin Sl Tabs [Nitrostat] 0.4 mg SUBLINGUAL Q5M PRN 01/31/17 08/11/17 History QUEtiapine FUMARATE [QUEtiapine 200 mg PO HS 01/31/17 08/11/17 History FUMARATE ER] QUEtiapine [SEROquel] 50 mg PO HS 01/31/17 08/11/17 History Rosuvastatin [Crestor] 20 mg PO HS 01/31/17 08/11/17 History Spironolactone [Aldactone] 25 mg PO DAILY 01/31/17 08/11/17 History Venlafaxine HCl [Effexor] 150 mg PO BID 01/31/17 08/11/17 History Cetirizine HCl [Zyrtec] 10 mg PO DAILY PRN 08/11/17 08/11/17 History Furosemide [Lasix] 40 mg PO DAILY PRN 08/11/17 08/11/17 History Nebivolol HCl [Bystolic] 10 mg PO DAILY 08/11/17 08/11/17 History Silodosin [Rapaflo] 8 mg PO HS 08/11/17 08/11/17 History Valsartan [Diovan] 160 mg PO DAILY 08/11/17 08/11/17 History Allergies Allergy/AdvReac Type Severity Reaction Status Date / Time benzoic acid Allergy Mild Unknown Verified 08/11/17 16:38 corn Allergy Unknown Verified 08/11/17 16:38 epoxy resin Allergy Unknown Verified 08/11/17 16:38 milk Allergy Unknown Verified 08/11/17 16:38 [email or web address] [From Myrbetriq] Allergy Rash/Hives Verified 08/11/17 16:38 solifenacin [From Vesicare] Allergy Rash/Hives Verified 08/11/17 16:38 wheat Allergy Unknown Verified 08/11/17 16:38 BASALM OF EDWARDO Allergy Mild Unknown Uncoded 09/17/15 09:16 DIALKYL THIOUREAS Allergy Mild Unknown Uncoded 09/17/15 09:16 DISPERSE BLUE 124 Allergy Mild Unknown Uncoded 09/17/15 09:16 RYAN GRASS Allergy Unknown Uncoded 01/31/17 16:12 neoprene Allergy Unknown Uncoded 01/13/17 14:44 Physical Exam Vitals: Vital Signs Temp Pulse Pulse Resp BP BP Pulse Ox 08/12/17 11:21 98.2 F 81 18 135/80 94 L 08/12/17 08:00 97.8 F 88 18 113/70 94 L 08/12/17 04:00 97.4 F L 77 18 100/64 94 L 08/12/17 00:00 98 18 143/87 94 L 08/11/17 20:20 98.5 F 98 18 119/98 96 08/11/17 20:06 98.5 F 100 18 148/77 96 08/11/17 19:00 103 H 20 116/69 97 08/11/17 18:00 102 H 20 137/88 97 08/11/17 17:00 97 20 119/79 99 08/11/17 15:57 98.6 F 89 26 H 142/83 98 Intake and Output 08/11/17 08/12/17 08/12/17 22:59 06:59 14:59 Intake Total 465.404 412.575 Output Total 200 250 275 Balance -200 215.404 137.575 Intake: Intake, IV Titration 465.404 232.575 Amount Heparin Sod,Pork in 0.45% 465.404 232.575 NaCl 25,000 unit In 0.45 % NaCl 1 500ml.bag @ 18 UNITS/KG/HR 42.94 mls/hr IV .[id number] [facility] Rx#: [id number] Oral 180 Output: Urine 200 250 275 Other: Voiding Method Urinal Toilet Urinal # Voids 1 1 Weight 120.6 kg 120.6 kg GENERAL EXAM: Morbidly obese. Alert, active, comfortable in no apparent distress. HEAD: Normocephalic. EYES: Normal reaction of pupils, equal size. NOSE: Clear with pink turbinates. THROAT: Crowding of the posterior pharynx. No erythema or exudates. NECK: Short. No masses, no JVD. CHEST: No chest wall deformity. LUNGS: Equal air entry with no crackles, wheeze, rhonchi or dullness. CVS: S1 and S2 normal with audible murmur, regular rhythm. ABDOMEN: No hepatosplenomegaly, normal bowel sounds, no guarding or rigidity. SPINE: No scoliosis or deformity SKIN: No rashes CENTRAL NERVOUS SYSTEM: No focal deficits, tone is normal in all 4 extremities. EXTREMITIES: There is no peripheral edema. No clubbing, no cyanosis. Peripheral pulses are intact. Results - Laboratory Findings CBC and BMP: 08/12/17 05:25 08/12/17 05:25 PT/INR, D-dimer PT 10.7 sec (9.0-12.0) 08/11/17 16:50 INR 1.1 (<1.2) 08/11/17 16:50 Abnormal lab findings: Abnormal Labs 08/11/17 08/11/17 08/11/17 11:43 16:50 16:50 MCV 101.9 H MCHC APTT BUN 36 H 36 H Creatinine 1.93 H 1.86 H Glucose 101 H 08/11/17 08/12/17 08/12/17 22:08 05:25 05:25 MCV 103.0 H MCHC 30.8 L APTT 194.1 H* BUN 31 H Creatinine 1.54 H Glucose 112 H 08/12/17 08/12/17 05:25 13:26 MCV MCHC APTT 92.0 H 81.3 H BUN Creatinine Glucose - Diagnostic Findings CT scan - chest: image reviewed Assessment and Plan Assessment: Impression: #1 Dyspnea, multifactorial in a patient with a known history of chronic obstructive pulmonary disease, obstructive sleep apnea, morbid obesity and suspected pickwickian syndrome, cardiomyopathy with LV dysfunction, history of left hemidiaphragm paralysis requiring plication, pulmonary embolism. #2 Intermediate to high probability for pulmonary embolism on this admission. Venous Dopplers negative bilaterally. The patient is on Xarelto 20 mg daily in the outpatient setting, compliant with his medications. #3 Previous history of extensive pulmonary embolism while in [place] requiring catheter directed thrombolysis. #4 History of DVT. #5 Morbid obesity. #6 Obstructive sleep apnea syndrome, treated with CPAP in the outpatient setting. #7 Chronic obstructive pulmonary disease with an FEV1 value of 61% of predicted. #8 History of coronary artery disease. #8 History of ischemic cardiomyopathy with estimated ejection fraction of 40%, current echocardiogram is pending. #9 History of right hemidiaphragmatic elevation secondary to surgery for right subclavian steal syndrome at the [facility] with subsequent plication of the right hemidiaphragmatic elevation done at [facility]. #10 History of penile implant with complications planning to have reconstruction by a urologist in the [facility]. #11 Hypertension. #12 Hyperlipidemia. #13 History of posttraumatic stress disorder. Plan: The patient was seen and evaluated by Dr. Ramos. His VQ scan computed tomography scan and Doppler reports were all reviewed. The patient may have a recurrent PE secondary to a recent fall in the bathroom with some chest wall contusion however the patient has been on Xarelto 20 mg daily in the outpatient setting. His heparin drip could be discontinued and he could just be resumed on his Xarelto. We'll treat his COPD with his Symbicort and Spiriva with bronchodilators. Continue the CPAP for the obstructive sleep apnea. Await echocardiogram report. We will increase his activity as tolerated. He may need to utilize home O2 if he continues with low O2 saturations with exertion. He is quite comfortable at rest and maintaining O2 saturations in the mid 90s on room air. We will continue to follow and make further recommendations based on his clinical status. I, the cosigning physician, performed a history & physical examination of the patient. Lungs sounds are clear. Maintaining good O2 saturations in the 90s on room air. I discussed the assessment and plan of care with my nurse practitioner, Kandis Pepe. I attest to the above note as dictated by her.
[2017-08-12] MEDS ORDERED: LORATADINE 10 MG TAB PO PRN (15:40)
[2017-08-12] MEDS: LORATADINE 10 MG TAB PO SCH (17:53)
[2017-08-12] MEDS: SYMBICORT 160-4.5 MCG INHALER INHALATION SCH (19:34)
[2017-08-12] MEDS: ATORVASTATIN 40 MG TAB PO SCH (22:01)
[2017-08-12] MEDS: TAMSULOSIN 0.4 MG CAP.ER.24H PO SCH (22:01)
[2017-08-13] MEDS: MIRTAZAPINE 15 MG TAB PO SCH (00:01)
[2017-08-13] MEDS: HEPARIN SOD,PORK IN 0.45% NACL 25,000 UNIT in 0.45% NACL 1 500ML.BAG IV SCH (06:57)
[2017-08-13 06:59] LABS: Basophils % (A) 1 %; Eosinophils # (A) 0.2 k/uL (0-0.7); Eosinophils % (A) 3 %; HCT 49.4 % (39.0-53.0); HGB 15.5 gm/dL (13.0-17.5); Hypochromasia Slight; Lymphocytes # (A) 1.1 k/uL (1.0-4.8); Lymphocytes % (A) 18 %; MCH 31.5 pg (25.0-35.0); MCHC 31.3 g/dL (31.0-37.0); MCV 100.5 fL (80.0-100.0); Macrocytosis Slight; Mean Platelet Volume 7.4; Monocytes # (A) 0.4 k/uL (0-1.0); Monocytes % (A) 6 %; Neutrophils # (A) 4.3 k/uL (1.3-7.7); Neutrophils % (A) 70 %; Platelet Count 206 k/uL (150-450); RBC 4.92 m/uL (4.30-5.90); RDW 14.7 % (11.5-15.5); WBC 6.1 k/uL (3.8-10.6)
[2017-08-13] MEDS ORDERED: PANTOPRAZOLE 40 MG TABLET PO SCH (07:30)
[2017-08-13] MEDS: SYMBICORT 160-4.5 MCG INHALER INHALATION SCH (07:34)
[2017-08-13 08:00] LABS: ALT 38 U/L (21-72); AST 29 U/L (17-59); Albumin 3.7 g/dL (3.5-5.0); Alkaline Phosphatase 54 U/L (38-126); Anion Gap 8 mmol/L; Blood Urea Nitrogen 20 mg/dL (9-20); Calcium 9.5 mg/dL (8.4-10.2); Carbon Dioxide 28 mmol/L (22-30); Chloride 108 mmol/L (98-107); Glucose 87 mg/dL (74-99); Potassium 5.3 mmol/L (3.5-5.1); Sodium 144 mmol/L (137-145); Total Bilirubin 0.6 mg/dL (0.2-1.3); Total Protein 6.5 g/dL (6.3-8.2)
[2017-08-13] MEDS: LORATADINE 10 MG TAB PO SCH (08:15)
[2017-08-13] MEDS: VENLAFAXINE HCL 75 MG TAB PO SCH (08:15)
[2017-08-13] MEDS: NEBIVOLOL 5 MG TAB PO SCH (08:15)
[2017-08-13] MEDS ORDERED: MULTIVITAMINS, THERA 1 EACH TAB PO SCH (09:00)
[2017-08-13] MEDS ORDERED: ASCORBIC ACID 500 MG TAB PO SCH (09:00)
[2017-08-13] MEDS ORDERED: CHOLECALCIFEROL 1,000 UNIT TAB PO SCH (09:00)
[2017-08-13 09:22] VITALS: RESP 20
[2017-08-13 11:41] VITALS: BP 140/90; PULSE 82; TEMP 97.8
--- NOTE | 2017-08-13 14:02 | P.DS ---
Providers Date of admission: 08/11/17 18:40 Attending physician: Ela Santos Consults: 08/11/17 18:39 Consult Physician Urgent Consulting Provider: Cindy Manley Consult Reason/Comments: pe Do you want consulting provider notified?: Yes Primary care physician: Bernabe Polo [facility] Course: This is a 67 years old male patient of Dr. Polo with past medical history of pulmonary embolism diagnosed in [place] 2 years ago, history of lower extremity DVT, coronary artery disease no stent, history of heart failure unknown if systolic or diastolic, COPD, hyperlipidemia, hypertension, osteoarthritis, prostate cancer, skin disorder,'s obstructive sleep apnea on CPAP, subclavian steal syndrome with stent placement, history of recent penile implant on 07/27/2016. Patient presents with complaints of worsening shortness of breath that has been going on for the past 2 years since the diagnosis of pulmonary embolism. Patient is currently on maintenance dose of xarelto at 20 mg daily. He endorses significant shortness of breath on walking or using his upper extremities. Patient had a recent surgery in July for penile implant and is due for another surgery in August at [place] Patient denies any chest pain, nausea or vomiting, sweating or chills. He endorses worsening swelling in the right lower extremity. He sees darcy Yu for pulmonary embolism and underwent VQ scan which suggested moderate to high probability of pulmonary embolism. Venous Doppler done today was negative for any DVT in the lower extremity. Patient is currently on IV heparin. Vitals are stable patient is afebrile, currently on room air saturating at 94%. CBC suggestive of MCV 103, BNP suggestive of CK D3 with creatinine at baseline. Troponin negative 1. BNP 148. Patient is admitted for management of acute pulmonary embolism. Echo is ordered 08/13 heparin discontinued. Patient started on xarelto 20 mg daily which he was taking prior to admission. Patient presentation is likely secondary to COPD, obstructive sleep apnea with a suspected pickwickian syndrome along with pulmonary embolism. Since BNP is 148 it is unlikely to be CHF contributing to the symptoms. Patient was walked in the hallway for pulse ox, saturatio ranging from 88-91%. Patient does wear oxygen at home and would continue to wear on exertion . Patient will follow-up with Dr. Dailey and Dr. Cruz for follow-up on his coronary artery disease and COPD Discharge diagnoses 1. Shortness of breath on exertion likely secondary to acute pulmonary embolism, COPD, obstructive sleep apnea and possibility pickwickian syndrome 2. History of DVT of the right leg in December 2013 3. COPD. 4. Hyperlipidemia. 5. Subclavian steal syndrome status post stent in the right carotid. 6. Benign prostatic hypertrophy 7. History of coronary artery disease with previous myocardial infarction. 8. Obstructive Sleep apnea. 9. Gastroesophageal reflux disease 10. Hypertension. 11. Depression. 12. History of ADHD. 13 chronic kidney disease stage III 14 history of ischemic cardiomyopathy with ejection fraction 40% CC a copy of discharge to Dr. King, Dr. Cruz and Dr. Dailey Patient Condition at Discharge: Good Plan - Discharge Summary Discharge Rx Participant: No New Discharge Prescriptions: Continue Acetaminophen Tab [Tylenol] 1,000 mg PO Q4-6H PRN PRN Reason: Pain Multivitamin/Iron/Folic Acid [Centrum Complete Multivit Tab] 1 tab PO DAILY Esomeprazole Magnesium [NexIUM] 40 mg PO DAILY #30 capsule. Cholecalciferol [Vitamin D3] 5,000 unit PO DAILY Ascorbic Acid [Vitamin C] 500 mg PO DAILY Betamethasone Dipropionate [Diprolene AF 0.05% Cream] 1 applic TOPICAL DAILY PRN PRN Reason: Rash Testosterone Cypionate [Depo-Testosterone] 200 mg IM Q14D Budesonide-Formot 160-4.5 Mcg [Symbicort 160-4.5 Mcg Inhaler] 2 puff INHALATION RT-BID Aspirin EC [Ecotrin Low Dose] 81 mg PO DAILY Albuterol Sulfate [Proventil Hfa] 2 puff INHALATION RT-Q6H PRN PRN Reason: Shortness Of Breath Mirtazapine 30 mg PO HS Rivaroxaban [Xarelto] 20 mg PO DAILY Tiotropium 18 Mcg/Puff [Spiriva] 1 cap INHALATION RT-DAILY Loratadine [Claritin] 10 mg PO DAILY Rosuvastatin [Crestor] 20 mg PO HS Spironolactone [Aldactone] 25 mg PO DAILY Nitroglycerin Sl Tabs [Nitrostat] 0.4 mg SUBLINGUAL Q5M PRN PRN Reason: Chest Pain Atomoxetine HCl [Strattera] 40 mg PO DAILY QUEtiapine FUMARATE [QUEtiapine FUMARATE ER] 200 mg PO HS QUEtiapine [SEROquel] 50 mg PO HS Venlafaxine HCl [Effexor] 150 mg PO BID Atomoxetine HCl [Strattera] 60 mg PO DAILY Nebivolol HCl [Bystolic] 10 mg PO DAILY Furosemide [Lasix] 40 mg PO DAILY PRN PRN Reason: Edema Valsartan [Diovan] 160 mg PO DAILY Silodosin [Rapaflo] 8 mg PO HS Cetirizine HCl [Zyrtec] 10 mg PO DAILY PRN PRN Reason: Allergy Symptoms Discharge Medication List Acetaminophen Tab [Tylenol] 1,000 mg PO Q4-6H PRN 01/13/14 [History] Multivitamin/Iron/Folic Acid [Centrum Complete Multivit Tab] 1 tab PO DAILY [History] Esomeprazole Magnesium [NexIUM] 40 mg PO DAILY #30 capsule. 01/16/14 [Rx] Ascorbic Acid [Vitamin C] 500 mg PO DAILY 09/16/15 [History] Aspirin EC [Ecotrin Low Dose] 81 mg PO DAILY 09/16/15 [History] Betamethasone Dipropionate [Diprolene AF 0.05% Cream] 1 applic TOPICAL DAILY PRN 09/16/15 [History] Budesonide-Formot 160-4.5 Mcg [Symbicort 160-4.5 Mcg Inhaler] 2 puff INHALATION RT-BID 09/16/15 [History] Cholecalciferol [Vitamin D3] 5,000 unit PO DAILY 09/16/15 [History] Testosterone Cypionate [Depo-Testosterone] 200 mg IM Q14D 09/16/15 [History] Albuterol Sulfate [Proventil Hfa] 2 puff INHALATION RT-Q6H PRN 01/13/17 [History ] Mirtazapine 30 mg PO HS 01/13/17 [History] Rivaroxaban [Xarelto] 20 mg PO DAILY 01/13/17 [History] Tiotropium 18 Mcg/Puff [Spiriva] 1 cap INHALATION RT-DAILY 01/13/17 [History] Atomoxetine HCl [Strattera] 40 mg PO DAILY 01/31/17 [History] Atomoxetine HCl [Strattera] 60 mg PO DAILY 01/31/17 [History] Loratadine [Claritin] 10 mg PO DAILY 01/31/17 [History] Nitroglycerin Sl Tabs [Nitrostat] 0.4 mg SUBLINGUAL Q5M PRN 01/31/17 [History] QUEtiapine FUMARATE [QUEtiapine FUMARATE ER] 200 mg PO HS 01/31/17 [History] QUEtiapine [SEROquel] 50 mg PO HS 01/31/17 [History] Rosuvastatin [Crestor] 20 mg PO HS 01/31/17 [History] Spironolactone [Aldactone] 25 mg PO DAILY 01/31/17 [History] Venlafaxine HCl [Effexor] 150 mg PO BID 01/31/17 [History] Cetirizine HCl [Zyrtec] 10 mg PO DAILY PRN 08/11/17 [History] Furosemide [Lasix] 40 mg PO DAILY PRN 08/11/17 [History] Nebivolol HCl [Bystolic] 10 mg PO DAILY 08/11/17 [History] Silodosin [Rapaflo] 8 mg PO HS 08/11/17 [History] Valsartan [Diovan] 160 mg PO DAILY 08/11/17 [History] Follow up Appointment(s)/Referral(s): Cindy Manley MD [STAFF PHYSICIAN] - 1-2 days (please call office when open to make follow up appointment) Barry Dailey MD [STAFF PHYSICIAN] - 1 Week (please call office when open to make follow up appointment) Discharge Disposition: HOME SELF-CARE Pending Studies Pending Results: Echo results are pending, patient will follow-up with Dr. Dailey as outpatient.
--- NOTE | 2017-08-13 14:35 | P.PN ---
Subjective Progress Note Date: 08/13/17 Principal diagnosis: Shortness of breath Progress note dated 08/13/2017 This is a 67-year-old male with a history of shortness of breath, which is multifactorial in part related to underlying COPD sleep apnea syndrome morbid obesity possible pickwickian syndrome cardiomyopathy left [place] diaphragm paralysis and [place] embolism. The patient may be discharged today. The primary service is considering that option. The patient was seen by my partner in the office yesterday. The patient was sent her for a ventilation perfusion lung scan. The ventilation perfusion lung scan was read read as being intermediate to high probability for pulmonary embolism. The patient has a history of pulmonary most him and has been on a factor X a inhibitor. The patient is feeling at baseline at the current time. Minimal shortness of breath. No cough. No chest pain no chest congestion. No fever no chills. No nausea vomiting or diarrhea. The patient does have a previous history of extensive pulmonary most him on an [place] and underwent catheter directed thrombolysis as well as ultrasonic dissolution of the clot. The patient also has a history of DVT morbid obesity sleep apnea syndrome COPD, moderate, CAD and ischemic cardiomyopathy previous chronic hemidiaphragm elevation status post plication status post penile implant hypertension hyperlipidemia and posttraumatic stress disorder. Objective - Vital Signs Vital signs: Vital Signs Temp 97.8 F 08/13/17 11:40 Pulse 82 08/13/17 11:40 Resp 20 08/13/17 11:40 BP 140/90 08/13/17 11:40 Pulse Ox 96 08/13/17 11:40 Intake & Output 08/12/17 08/13/17 08/13/17 18:59 06:59 18:59 Intake Total 952.575 201.173 120 Output Total 1725 550 250 Balance -772.425 -348.827 -130 Weight 121.5 kg Intake: Intake, IV Titration 232.575 201.173 Amount Heparin Sod,Pork in 0.45% 232.575 201.173 NaCl 25,000 unit In 0.45 % NaCl 1 500ml.bag @ 18 UNITS/KG/HR 42.94 mls/hr IV .[id number] [facility] Rx#: [id number] Oral 720 120 Output: Urine 1725 550 250 Other: Voiding Method Toilet Toilet Urinal Urinal # Voids 1 - Exam No acute distress, oriented 3. HEENT examination is grossly unremarkable. Mucous membranes are moist. No oral lesions. Neck supple. Full range of motion. No adenopathy thyromegaly or neck vein distention. Cardiovascular examination reveals regular rhythm rate. S1-S2 normal. No S3 or S4. No discernible murmur noted. Lungs reveal diminished breath sounds. No wheezes are noted. No rhonchi. Breath sounds are diminished.. Abdomen soft bowel sounds are heard. No masses or tenderness. Extremities are intact. No cyanosis clubbing or edema. Skin is without rash or lesion. Neurologic examination is brief but nonfocal. - Labs CBC & Chem 7: 08/13/17 06:35 08/13/17 06:35 Labs: Abnormal Lab Results - Last 24 Hours (Table) 08/12/17 08/13/17 08/13/17 Range/Units 20:20 06:35 06:35 MCV 100.5 H (80.0-100.0) fL APTT 53.0 H (22.0-30.0) sec Potassium 5.3 H (3.5-5.1) mmol/L Chloride 108 H (98-107) mmol/L 08/13/17 Range/Units 06:41 MCV (80.0-100.0) fL APTT 50.8 H (22.0-30.0) sec Potassium (3.5-5.1) mmol/L Chloride (98-107) mmol/L Assessment and Plan Assessment: Assessment Shortness of breath, multifactorial, in part related to underlying moderate COPD , sleep apnea syndrome, possible pickwickian syndrome, cardiomyopathy with LV dysfunction, left hemidiaphragm paralysis, requiring plication, and previous history of extensive pulmonary embolism requiring catheter directed thrombolysis and ultrasonic dissolution. Possible recurrent PE Previous history of extensive pulmonary most him as above History of DVT Morbid obesity Sleep apnea syndrome, currently on CPAP COPD CAD Ischemic cardiopathy myopathy Previous history of right hemidiaphragm paralysis, with subsequent plication History of penile implant History of hypertension Hyperlipidemia Posttraumatic stress disorder Plan: Plan dated 08/13/2017 We recommend the patient go back on his factor X a inhibitor at 20 mg once a day. The patient will follow with my partner. We optimize his bronchodilators. The patient's doing well. Wants to be discharged. No additional recommendations are made. We'll continue to follow. Time with Patient: Less than 30
--- NOTE | 2017-08-14 14:33 | ECHOF ---
Referral Reason:right heart strain MEASUREMENTS -------- HEIGHT: 182.9 cm WEIGHT: 120.2 kg BP: 113/70 LAESV Index (A-L): 14.80 ml/m Ao Diam: 3.7 cm (2.0 - 3.7) LA Diam: 2.9 cm (2.7 - 3.8) AV Cusp: 1.7 cm (1.5 - 2.6) MV E Lanre: 0.52 m/s MV DecT: 589 ms MV A Lanre: 0.72 m/s MV E/A Ratio: 0.72 RAP: 5.00 mmHg RVSP: 9.21 mmHg FINDINGS -------- Sinus rhythm. This was a technically difficult study with suboptimal views. The left ventricular size is normal. There is mild global hypokinesis of LV . Overall left ventri cular systolic function is mild-moderately impaired with, an EF between 40 - 45 %. The RV was not well visualized. Normal LA size by volume 22+/-6 ml/m2. The right atrium is normal in size. 2.5ml of Lumason was utilized for enhancement of images. Aortic valve is trileaflet and is mildly thickened. There is no evidence of aortic regurgitation. There is no evidence of aortic stenosis. The mitral valve leaflets are mildly thickened. There is trace to mild mitral regurgitation. Trace tricuspid regurgitation present. Right ventricular systolic pressure is normal at < 35 mmHg. There is no evidence of pulmonary hypertension. The pulmonic valve was not well visualized. The aortic root size is normal. IVC Not well visulized. The pericardium is normal. There is no pericardial effusion. CONCLUSIONS -------- 1. Sinus rhythm. 2. This was a technically difficult study with suboptimal views. 3. The left ventricular size is normal. 4. There is mild global hypokinesis of LV . 5. Overall left ventricular systolic function is mild-moderately impaired with, an EF between 40 - 45 %. 6. The RV was not well visualized. 7. Normal LA size by volume 22+/-6 ml/m2. 8. 2.5ml of Lumason was utilized for enhancement of images. 9. Aortic valve is trileaflet and is mildly thickened. 10. The mitral valve leaflets are mildly thickened. 11. There is trace to mild mitral regurgitation. 12. Trace tricuspid regurgitation present. 13. Right ventricular systolic pressure is normal at < 35 mmHg. 14. There is no evidence of pulmonary hypertension. 15. The pulmonic valve was not well visualized. 16. The aortic root size is normal. 17. IVC Not well visulized. 18. There is no pericardial effusion. INSPECTING MACHINE ADJUSTER: Pineda Crowe RDCS
[2017-08-20] MEDS ORDERED: TESTOSTERONE CYPIONATE 200 MG/ML 1ML VIAL IM SCH (12:00)
== END 2017-08-13 13:53 | disposition home or self-care (01) | DRG 176 ==
LOC: EC 15:50 → 6SEL 18:40
PROVIDERS: ADMIT Internal Medicine; ATTEND Internal Medicine
DX: I26.99 Other pulmonary embolism without acute cor pulmonale (principal); I13.0 Hypertensive heart and chronic kidney disease with heart failure and stage 1 through stage 4 chronic kidney disease, or unspecified chronic kidney disease; E66.2 Morbid (severe) obesity with alveolar hypoventilation; I50.9 Heart failure, unspecified; Z99.81 Dependence on supplemental oxygen; J44.9 Chronic obstructive pulmonary disease, unspecified; E78.5 Hyperlipidemia, unspecified; F32.9 Major depressive disorder, single episode, unspecified; F43.10 Post-traumatic stress disorder, unspecified; F90.9 Attention-deficit hyperactivity disorder, unspecified type; I25.10 Atherosclerotic heart disease of native coronary artery without angina pectoris; I25.2 Old myocardial infarction; I25.5 Ischemic cardiomyopathy; K21.9 Gastro-esophageal reflux disease without esophagitis; N18.3 Chronic kidney disease, stage 3 (moderate); N40.0 Benign prostatic hyperplasia without lower urinary tract symptoms; M19.90 Unspecified osteoarthritis, unspecified site; E66.9 Obesity, unspecified; Z68.36 Body mass index [BMI] 36.0-36.9, adult; Z79.01 Long term (current) use of anticoagulants; Z79.51 Long term (current) use of inhaled steroids; Z79.899 Other long term (current) drug therapy; Z79.82 Long term (current) use of aspirin; Z96.653 Presence of artificial knee joint, bilateral; Z96.643 Presence of artificial hip joint, bilateral; Z87.891 Personal history of nicotine dependence; Z86.718 Personal history of other venous thrombosis and embolism; Z86.711 Personal history of pulmonary embolism; Z91.011 Allergy to milk products; Z88.8 Allergy status to other drugs, medicaments and biological substances; Z91.048 Other nonmedicinal substance allergy status; Z82.49 Family history of ischemic heart disease and other diseases of the circulatory system
CPT/HCPCS: 36415; 71046; 71250; 78582; 80053; 82550; 82553; 82565; 83735; 83880; 84484; 84520; 85025; 85610; 85730; 93005; 93306; 93970; 94640; 94660; 96365; 96366; 96376; 99291

== ENCOUNTER → 2017-08-22 | Outpatient (CLI) | payer MEDICARE ==
--- NOTE | 2017-08-22 11:09 | ECHOF ---
Referral Reason:J96.11 Chronic respiratory failure with hypoxia MEASUREMENTS -------- HEIGHT: 182.9 cm WEIGHT: 114.8 kg BP: 174/81 RVIDd: 3.7 cm (< 3.3) IVSd: 1.3 cm (0.6 - 1.1) LVIDd: 3.5 cm (3.9 - 5.3) LVPWd: 1.4 cm (0.6 - 1.1) IVSs: 2.0 cm LVIDs: 2.7 cm LVPWs: 2.0 cm LA Diam: 3.7 cm (2.7 - 3.8) LAESV Index (A-L): 29.56 ml/m Ao Diam: 3.5 cm (2.0 - 3.7) AV Cusp: 1.6 cm (1.5 - 2.6) MV EXCURSION: 18.048 mm (> 18.000) MV EF SLOPE: 89 mm/s (70 - 150) EPSS: 1.0 cm MV E Lnare: 0.79 m/s MV DecT: 259 ms MV A Lanre: 0.71 m/s MV E/A Ratio: 1.12 RAP: 5.00 mmHg RVSP: 40.84 mmHg FINDINGS -------- This was a technically adequate study. The left ventricular size is normal. There is mild concentric left ventricular hypertrophy. Overa ll left ventricular systolic function is low-normal with, an EF between 50 - 55 %. The right ventricle is mildly enlarged. LA is midly dilated 29-33ml/m2. The right atrium is normal in size. There is mild aortic valve sclerosis. There is trace mitral regurgitation. Mild tricuspid regurgitation present. There is mild pulmonary hypertension. The right ventricular systolic pressure, as measured by Doppler, is 40.84mmHg. Trace/mild (physiologic) pulmonic regurgitation. The aortic root size is normal. The inferior vena cava is mildly dilated. There is no pericardial effusion. CONCLUSIONS -------- 1. This was a technically adequate study. 2. The left ventricular size is normal. 3. There is mild concentric left ventricular hypertrophy. 4. Overall left ventricular systolic function is low-normal with, an EF between 50 - 55 %. 5. The right ventricle is mildly enlarged. 6. LA is midly dilated 29-33ml/m2. 7. The right atrium is normal in size. 8. There is mild aortic valve sclerosis. 9. There is trace mitral regurgitation. 10. Mild tricuspid regurgitation present. 11. There is mild pulmonary hypertension. 12. The right ventricular systolic pressure, as measured by Doppler, is 40.84mmHg. 13. Trace/mild (physiologic) pulmonic regurgitation. 14. The aortic root size is normal. 15. The inferior vena cava is mildly dilated. 16. There is no pericardial effusion. LEGAL WRITING PROFESSOR: Aminata Stewart RDCS
== END | disposition home or self-care (01) ==
LOC: RADECHMAIN 08:14
PROVIDERS: ATTEND Internal Medicine
DX: I07.1 Rheumatic tricuspid insufficiency (principal); I27.20 Pulmonary hypertension, unspecified; I05.8 Other rheumatic mitral valve diseases; J96.11 Chronic respiratory failure with hypoxia
CPT/HCPCS: 93306

== ENCOUNTER 2018-11-09 09:20 | Emergency (ER) | payer MEDICARE, OTHER ==
[2018-11-09] MEDS ORDERED: DIPH,PERTUS(ACELL)TETVAC-LF 0.5 ML VIAL IM ONE (09:48)
[2018-11-09] MEDS ORDERED: LIDOCAINE 1% INJ 10MG/ML (20 ML MDV) SQ ONE (09:48)
--- NOTE | 2018-11-09 09:51 | ED ---
Wound/Laceration HPI - General Chief Complaint: Wound/Laceration Stated Complaint: thumb lac Time Seen by Provider: 11/09/18 09:28 Source: patient, RN notes reviewed, old records reviewed Mode of arrival: ambulatory - History of Present Illness Initial Comments: Patient is a 68-year-old male who presents emergency Department today with complaints of left thumb laceration. Patient reports he cut his thumb with a knife. Patient states he is on blood thinners including was not controlled. He had an appointment to see his PCP for unrelated event. When he went to see his primary care doctor today and stated they were unable to solicit this time and sent him here for evaluation. Patient states that he has full range of motion of the thumb. He denies any other complaints. - Related Data Home Medications Medication Instructions Recorded Confirmed Acetaminophen Tab [Tylenol] 1,000 mg PO Q4H PRN 01/13/14 11/09/18 Aspirin EC [Ecotrin Low Dose] 81 mg PO DAILY 09/16/15 11/09/18 Betamethasone Dipropionate 1 applic TOPICAL DAILY PRN 09/16/15 11/09/18 [Diprolene AF 0.05% Cream] Budesonide-Formot 160-4.5 Mcg 2 puff INHALATION RT-BID 09/16/15 11/09/18 [Symbicort 160-4.5 Mcg Inhaler] Albuterol Sulfate [Proventil Hfa] 2 puff INHALATION RT-Q6H PRN 01/13/17 11/09/18 Mirtazapine 30 mg PO HS 01/13/17 11/09/18 Rivaroxaban [Xarelto] 20 mg PO DAILY 01/13/17 11/09/18 Tiotropium 18 Mcg/Puff [Spiriva] 1 cap INHALATION RT-DAILY 01/13/17 11/09/18 Atomoxetine HCl [Strattera] 40 mg PO DAILY 01/31/17 11/09/18 Atomoxetine HCl [Strattera] 60 mg PO DAILY 01/31/17 11/09/18 Loratadine [Claritin] 10 mg PO DAILY 01/31/17 11/09/18 Nitroglycerin Sl Tabs [Nitrostat] 0.4 mg SUBLINGUAL Q5M PRN 01/31/17 11/09/18 QUEtiapine FUMARATE [QUEtiapine 200 mg PO HS 01/31/17 11/09/18 FUMARATE ER] Rosuvastatin [Crestor] 20 mg PO HS 01/31/17 11/09/18 Spironolactone [Aldactone] 25 mg PO DAILY 01/31/17 11/09/18 Venlafaxine HCl [Effexor] 150 mg PO BID 01/31/17 11/09/18 Furosemide [Lasix] 40 mg PO DAILY PRN 08/11/17 11/09/18 Nebivolol HCl [Bystolic] 10 mg PO DAILY 08/11/17 11/09/18 Valsartan [Diovan] 160 mg PO DAILY 08/11/17 11/09/18 Allopurinol [Zyloprim] 300 mg PO DAILY 11/09/18 11/09/18 Zolpidem Tartrate [Ambien] 10 mg PO HS 11/09/18 11/09/18 Previous Rx's Medication Instructions Recorded Esomeprazole Magnesium [NexIUM] 40 mg PO DAILY #30 capsule. 01/16/14 Allergies Allergy/AdvReac Type Severity Reaction Status Date / Time benzoic acid Allergy Mild Unknown Verified 11/09/18 09:51 corn Allergy Unknown Verified 11/09/18 09:51 epoxy resin Allergy Unknown Verified 11/09/18 09:51 milk Allergy Unknown Verified 11/09/18 09:51 mirabegron [From Myrbetriq] Allergy Rash/Hives Verified 11/09/18 09:51 silodosin [From Rapaflo] Allergy Rash/Hives Verified 11/09/18 09:59 solifenacin [From Vesicare] Allergy Rash/Hives Verified 11/09/18 09:51 wheat Allergy Unknown Verified 11/09/18 09:51 BASALM OF EDWARDO Allergy Mild Unknown Uncoded 11/09/18 09:34 DIALKYL THIOUREAS Allergy Mild Unknown Uncoded 11/09/18 09:34 DISPERSE BLUE 124 Allergy Mild Unknown Uncoded 11/09/18 09:34 RYAN GRASS Allergy Unknown Uncoded 11/09/18 09:34 neoprene Allergy Rash/Hives Uncoded 11/09/18 09:59 Review of Systems ROS Statement: Those systems with pertinent positive or pertinent negative responses have been documented in the HPI. ROS Other: All systems not noted in ROS Statement are negative. Past Medical History Past Medical History: Coronary Artery Disease (CAD), Chest Pain / Angina, Heart Failure, COPD, Deep Vein Thrombosis (DVT), GERD/Reflux, Hyperlipidemia, Hypertension, Myocardial Infarction (SD), Osteoarthritis (OA), Prostate Disorder, Pulmonary Embolus (PE), Skin Disorder, Sleep Apnea/CPAP/BIPAP, Vasc ular Disorder Additional Past Medical History / Comment(s): Right subclavian steal syndrome with paralysis of the right diaphragm, benign prostatic hypertrophy, bladder retention Last Myocardial Infarction Date:: 2008 History of Any Multi-Drug Resistant Organisms: None Reported Past Surgical History: Heart Catheterization, Joint Replacement, Orthopedic Surgery, Prostate Surgery Additional Past Surgical History / Comment(s): Bilateral HIP REPLACEMENT, PERRY KNEE REPLACEMENT, TURP, TRANSPORT OF THE SUBCLAVIAN, STENT OF THE SUBCLAVIAN, B/L shoulder. penile implant Past Anesthesia/Blood Transfusion Reactions: No Reported Reaction Past Psychological History: ADD/ADHD, Depression, PTSD Smoking Status: Former smoker Past Alcohol Use History: None Reported Past Drug Use History: None Reported - Past Family History Father Family Medical History: Cancer Additional Family Medical History / Comment(s): Father from mesothelioma lung cancer Mother Family Medical History: CVA/TIA, Hypertension Additional Family Medical History / Comment(s): Mother is living and is 88 yrs old General Exam - General Exam Comments Initial Comments: Patient is a 68-year-old male. Alert and oriented. No significant distress. General appearance: alert, in no apparent distress Head exam: Present: atraumatic, normocephalic, normal inspection Eye exam: Present: normal appearance, PERRL, EOMI. Absent: scleral icterus, conjunctival injection, periorbital swelling ENT exam: Present: normal exam, mucous membranes moist Neck exam: Present: normal inspection. Absent: tenderness, meningismus, lymphadenopathy Respiratory exam: Present: normal lung sounds bilaterally. Absent: respiratory distress, wheezes, rales, rhonchi, stridor Cardiovascular Exam: Present: regular rate, normal rhythm, normal heart sounds. Absent: systolic murmur, diastolic murmur, rubs, gallop, clicks GI/Abdominal exam: Present: soft, normal bowel sounds. Absent: distended, tenderness, guarding, rebound, rigid Left Forearm Wrist exam: Present: normal inspection, full ROM Hand Wrist exam: Present: laceration (Patient has a 3 cm laceration over the right thumb pad with some extension into the front of the thumb. No nail bed involvement.). Absent: normal inspection Hand L/R Back: 1 - 3cm laceration Neuro motor exam: Present: wrist extension intact, thumb opposition intact, thum b IP flexion intact, thumb adduction intact Neurological exam: Present: alert, oriented X3, CN II-XII intact Psychiatric exam: Present: normal affect, normal mood Skin exam: Present: warm, dry, intact, normal color. Absent: rash Course Vital Signs 11/09/18 09:24 Temperature 97.6 F Pulse Rate 85 Respiratory 20 Rate Blood Pressure 137/74 O2 Sat by Pulse 99 Oximetry Procedures - Laceration Laceration #1 Site: hand (left thumb) Size (cm): 3 Description: linear Depth: simple, single layer Anesthetic Used: lidocaine 1% Anesthesia Technique: local infiltration Amount (mls): 3 Pre-repair: wound explored, irrigated extensively Type of Sutures: nylon Size of Sutures: 5-0 Number of Sutures: 9 Technique: simple, interrupted Patient Tolerated Procedure: well, no complications Medical Decision Making - Medical Decision Making Patient is a 68-year-old male presents for urgency department today with complaints of a thumb laceration. Patient reports that he cut his thumb on a knife today. His 3 vm laceration was closed with 9 sutures. She has no tendon involvement full range of motion of the thumb noted. Neurovascularly intact. Wound was well approximated, tolerated procedure well. Given updated today. Discussed suture removal in 8-10 days. Discussed monitoring for any signs of infection including redness swelling or drainage. All questions answered return parameters were discussed. Disposition Clinical Impression: Thumb laceration Disposition: HOME SELF-CARE Condition: Good Instructions (If sedation given, give patient instructions): Laceration (ED) Additional Instructions: Please return to the emergency room in 8-10 days to have sutures removed. Please leave wound covered for the first 24-48 hours and then leave open to air after that time. Please use clean soap and water to clean the suture area to prevent scabbing over the top of your sutures. Please watch for any signs of infection which may include but not limited to increased pain, swelling, redness, fever or chills. Please return to the emergency room if any signs of infection do occur. Please return to the emergency room for any other concerns or complications. Is patient prescribed a controlled substance at d/c from ED?: No Referrals: Bernabe Polo DO [Primary Care Provider] - 1-2 days Time of Disposition: 10:45
[2018-11-09] MEDS ORDERED: GELATIN SPONGE,ABSORB (LARGE) 1 EACH SPONGE TOPICAL STA (09:54)
[2018-11-09 11:23] VITALS: BP 133/70; PULSE 72; RESP 19; TEMP 98.1
== END 2018-11-09 11:23 | disposition home or self-care (01) ==
LOC: EC 09:20
DX: S61.012A Laceration without foreign body of left thumb without damage to nail, initial encounter (principal); I25.119 Atherosclerotic heart disease of native coronary artery with unspecified angina pectoris; I11.0 Hypertensive heart disease with heart failure; I50.9 Heart failure, unspecified; J44.9 Chronic obstructive pulmonary disease, unspecified; E78.5 Hyperlipidemia, unspecified; I25.2 Old myocardial infarction; M19.90 Unspecified osteoarthritis, unspecified site; G47.30 Sleep apnea, unspecified; F32.9 Major depressive disorder, single episode, unspecified; F90.9 Attention-deficit hyperactivity disorder, unspecified type; Z87.891 Personal history of nicotine dependence; Z88.1 Allergy status to other antibiotic agents; Z88.8 Allergy status to other drugs, medicaments and biological substances; Z91.011 Allergy to milk products; Z91.018 Allergy to other foods; Z91.048 Other nonmedicinal substance allergy status; Z79.01 Long term (current) use of anticoagulants; Z79.51 Long term (current) use of inhaled steroids; Z79.82 Long term (current) use of aspirin; Z79.899 Other long term (current) drug therapy; Z86.711 Personal history of pulmonary embolism; Z86.718 Personal history of other venous thrombosis and embolism; Z86.73 Personal history of transient ischemic attack (TIA), and cerebral infarction without residual deficits; Z95.818 Presence of other cardiac implants and grafts; Z96.643 Presence of artificial hip joint, bilateral; Z96.653 Presence of artificial knee joint, bilateral; Z95.828 Presence of other vascular implants and grafts; Z99.89 Dependence on other enabling machines and devices; Z23 Encounter for immunization; W26.0XXA Contact with knife, initial encounter
CPT/HCPCS: 90715; 99283; 90471; 12002; J2001

== ENCOUNTER 2018-12-27 07:54 | Day surgery (SDC) | payer MEDICARE, OTHER ==
[2018-12-25 16:21] VITALS: BMI 35.2
[~2018-12-27 07:54] MED LIST changes: -AMPICILLIN 1,000 MG in SODIUM CHLORIDE 0.9% 50 ML IVPB ONE; -DEXAMETHASONE SOD PHOSPHATE 10 MG/ML 1 ML VIAL IV ONE; -GENTAMICIN 160 MG in SODIUM CHLORIDE 0.9% 100 ML IVPB ONE; -GENTAMICIN 80 MG in SODIUM CHLORIDE 0.9% 500 ML IRRIGATION ONE; -HYDROcodone/APAP 7.5-325MG 1 EACH TAB PO ONE; -HYDROmorphone (PF) 1 MG/ML ONE; -HYDROmorphone 1 MG/ML 1 ML SYRINGE IVP PRN; -LACTATED RINGERS 1,000 ML IV ONE; -MIDAZOLAM 2 MG/2 ML VIAL IV PRN; -MIDAZOLAM 2 MG/2 ML VIAL ONE; -ONDANSETRON 4 MG/2 ML VIAL IVP ONE; -PROPOFOL 10 MG/ML 20 ML VIAL IV ONE; -SCOPOLAMINE 1.5MG/72HR PATCH TRANSDERM ONE; -SUCCINYLCHOLINE CHLORIDE VIAL 200 MG/10 ML VIAL IV ONE; -ePHEDrine 50 MG/ML 1 ML AMP ONE; -fentaNYL (PF) 50 MCG/ML 2 ML AMP ONE
[2018-12-27 08:58] VITALS: RESP 18; TEMP 96.9
[2018-12-27 09:20] LABS: Glucose,Whole Blood 82 mg/dL (75-99)
[2018-12-27] MEDS ORDERED: PROPOFOL 10 MG/ML 20 ML VIAL IV ONE (10:04)
[2018-12-27] MEDS ORDERED: LIDOCAINE 1% INJ 10MG/ML (20 ML MDV) ONE (10:04)
[2018-12-27 10:52] VITALS: BP 133/82; PULSE 80
--- NOTE | 2018-12-27 23:23 | PCN ---
PROCEDURE NOTE DATE OF SERVICE: 12/27/2018. PROCEDURE PERFORMED: Total colonoscopy. PREOPERATIVE DIAGNOSIS: Anemia. POSTOPERATIVE DIAGNOSES: 1. Sigmoid diverticulosis with no evidence of acute diverticulitis or strictures. 2. Low-grade internal hemorrhoids without bleeding at the time of the exam. PREPARATION: Half lightly prep. SEDATION: Provided by Anesthesia. BRIEF CLINICAL HISTORY: The patient is a 68-year-old male who is scheduled for this evaluation because of history of anemia. The patient had no prior colonoscopy. He denies any significant bowel issues or overt bleeding. PROCEDURE IN DETAIL: With the patient in left lateral decubitus position and after informed consent and adequate sedation, the perianal area was inspected and it did not show any fissures or fistulas. There were no masses felt on digital rectal examination. The Olympus CF H 190 L video colonoscope was then inserted in the rectum in the usual fashion and advanced to the cecum. There were multiple diverticular orifices seen scattered in the sigmoid with no evidence of acute diverticulitis or strictures. The mucosa appeared healthy. No obvious polyps or tumors were seen. I retroflexed the endoscope in the rectum before the endoscope was withdrawn. Low-grade internal hemorrhoids were noted with no evidence of bleeding. The patient tolerated the procedure well. PLAN: The patient was reassured. Discussed dietary measures and local care for hemorrhoids. He will follow up with you as planned and I recommended a repeat exam in 10 years. As far as his anemia is concerned, consideration can be given for upper GI workup if there is ongoing evidence of GI bleeding and anemia. I will be happy to see in the future. Will follow up with you as planned. MMODL / IJN: [id number] /
== END 2018-12-27 10:57 | disposition home or self-care (01) ==
LOC: ORWHC2ENDO 07:54
DX: K57.30 Diverticulosis of large intestine without perforation or abscess without bleeding (principal); K64.8 Other hemorrhoids; I25.10 Atherosclerotic heart disease of native coronary artery without angina pectoris; E78.5 Hyperlipidemia, unspecified; K21.9 Gastro-esophageal reflux disease without esophagitis; Z86.718 Personal history of other venous thrombosis and embolism; Z86.711 Personal history of pulmonary embolism; G47.33 Obstructive sleep apnea (adult) (pediatric); M19.90 Unspecified osteoarthritis, unspecified site; Z96.653 Presence of artificial knee joint, bilateral; I25.2 Old myocardial infarction; J44.9 Chronic obstructive pulmonary disease, unspecified; Z87.891 Personal history of nicotine dependence; I13.0 Hypertensive heart and chronic kidney disease with heart failure and stage 1 through stage 4 chronic kidney disease, or unspecified chronic kidney disease; I50.9 Heart failure, unspecified; N18.9 Chronic kidney disease, unspecified; Z79.899 Other long term (current) drug therapy
CPT/HCPCS: 45378; J2001; J2704

== ENCOUNTER → 2019-06-28 | Outpatient (CLI) | payer MEDICARE ==
--- NOTE | 2019-06-28 10:50 | XR ---
EXAMINATION TYPE: XR chest 2V DATE OF EXAM: 06/28/2019 COMPARISON: Prior chest x-ray and CT chest August 11, 2017. HISTORY: Shortness of breath, possible CHF. TECHNIQUE: Frontal and lateral views of the chest are obtained. FINDINGS: There is persistent bibasilar linear scarring and/or atelectasis without new suspicious fo chris air space opacity, pleural effusion, or pneumothorax seen. The cardiac silhouette size remains w ithin normal limits. Interval right shoulder surgery with new metallic hardware partially visualized. IMPRESSION: Chronic bibasilar linear scarring and/or atelectasis. No acute pulmonary process is evid ent.
== END | disposition home or self-care (01) ==
LOC: RADXRMAIN 10:24
PROVIDERS: ATTEND Family Medicine
DX: I50.40 Unspecified combined systolic (congestive) and diastolic (congestive) heart failure (principal)
CPT/HCPCS: 71046

== ENCOUNTER → 2019-08-02 | Outpatient (CLI) | payer MEDICARE ==
--- NOTE | 2019-08-02 15:06 | XR ---
EXAMINATION TYPE: XR tibia fibula RT DATE OF EXAM: 08/02/2019 CLINICAL HISTORY: Right mid leg pain and bruising and swelling after fall injury. TECHNIQUE: Two views of the right leg are obtained. COMPARISON: None. FINDINGS: There is no acute fracture or dislocation seen in the right tibia or fibula. Metallic hard almendarez from total right knee arthroplasty is thought Satisfactory in position. Heterotopic ossification superior to the patella is noted. Ankle show well-defined ossific fragments lateral and medial mall eoli could reflect avulsion type fractures. Moderate to large superior and inferior calcaneal spurs. Nonspecific periosteal reaction midshaft level of the fibula. The overlying soft tissue appears unrem arkable. IMPRESSION: There is no acute fracture or dislocation seen in the right tibia or fibula.
== END | disposition home or self-care (01) ==
LOC: RADXRMAIN 14:17
PROVIDERS: ATTEND Family Medicine
DX: M79.661 Pain in right lower leg (principal); Z87.312 Personal history of (healed) stress fracture

== ENCOUNTER → 2019-09-19 | Outpatient (CLI) | payer MEDICARE ==
--- NOTE | 2019-09-19 15:27 | US ---
EXAMINATION TYPE: US carotid duplex BILAT DATE OF EXAM: 09/19/2019 COMPARISON: NONE CLINICAL HISTORY: R56.9 Seizure disorder, I25.110 Corinary disease. Dizziness. EXAM MEASUREMENTS: RIGHT: Peak Systolic Velocity (PSV) cm/sec ----- Right CCA: 108.8 ----- Right ICA: 91.4 ----- Right ECA: 59.4 ICA/CCA ratio: 0.8 RIGHT: End Diastole cm/sec ----- Right CCA: 24.6 ----- Right ICA: 17.3 ----- Right ECA: 10.0 LEFT: Peak Systolic Velocity (PSV) cm/sec ----- Left CCA: 92.7 ----- Left ICA: 87.1 ----- Left ECA: 125.8 ICA/CCA ratio: 0.9 LEFT: End Diastole cm/sec ----- Left CCA: 25.3 ----- Left ICA: 27.3 ----- Left ECA: 24.1 VERTEBRALS (direction of flow): Right Vertebral: Antegrade Left Vertebral: Antegrade Rhythm: Normal No significant stenosis seen Small atheromatous plaques are evident within the common carotid and carotid bulb region IMPRESSION: 1. Atheromatous plaquing without significant flow-limiting stenosis. Criteria for Assigning % of Stenosis / Diameter reduction (Estimation based on the indirect measurements of the internal carotid artery velocities (ICA PSV). 1. Normal (no stenosis)=ICA PSV < 125 cm/s: ratio < 2.0: ICA EDV<40 cm/s. 2. Less than 50% stenosis=ICA PSV < 125 cm/s: ratio < 2.0: ICA EDV<40 cm/s. 3. 50 to 69% stenosis=ICA PSV of 125 to 230 cm/s: ration 2.0 ? 4.0: ICA EDV 40-100 cm/s. 4. Greater than 70% stenosis to near occlusion= ICA PSV > 230 cm/s: ratio > 4.0: ICA EDV > 100 cm/s. 5. Near occlusion= ICA PSV velocities may be low or undetectable: variable ratio and ICA EDV. 6. Total occlusion=unable to detect flow.
--- NOTE | 2019-09-19 16:40 | CT ---
EXAMINATION TYPE: CT brain wo/w con DATE OF EXAM: 09/19/2019 COMPARISON: CT brain September 16, 2015. HISTORY: Seizure disorder, BALTAZAR, memory loss CT DLP: 2231.4 mGycm Automated exposure control for dose reduction was used. CONTRAST: CT scan of the head is performed without and with IV Contrast, patient injected with 100 mL of Isovue 300. FINDINGS: Noncontrast images show no acute intracranial hemorrhage or midline shift. Mild ventricular and sulc al prominence consistent with mild diffuse age-related cerebral atrophy greatest over bilateral front al lobes. Postcontrast images show no suspicious enhancing intraparenchymal mass. Kuhn-white matter d ifferentiation fairly well maintained. There is dependent air fluid levels bilateral maxillary sinuse s on current study with some additional eccentric mild mucosal thickening inferiorly in the right max illary sinus. IMPRESSION: Mild diffuse cerebral atrophy most prominent over bilateral frontal lobes. No suspicious enhancement. Acute bilateral maxillary sinusitis is present.
== END | disposition home or self-care (01) ==
LOC: RADCTMAIN 14:32
PROVIDERS: ATTEND Family Medicine
DX: G31.9 Degenerative disease of nervous system, unspecified (principal); I65.23 Occlusion and stenosis of bilateral carotid arteries; I25.110 Atherosclerotic heart disease of native coronary artery with unstable angina pectoris; R56.9 Unspecified convulsions; R60.9 Edema, unspecified; Z88.8 Allergy status to other drugs, medicaments and biological substances
CPT/HCPCS: 82565; 84520; 93880; 70470; 36415; Q9967

== ENCOUNTER → 2020-01-06 | Outpatient (CLI) | payer MEDICARE | END | disposition home or self-care (01) | LOC: LABWHC1 07:27 | PROVIDERS: ATTEND Family Medicine | DX: R05 Cough (principal); R06.02 Shortness of breath ==

== ENCOUNTER → 2020-01-27 | Outpatient (CLI) | payer MEDICARE ==
--- NOTE | 2020-03-01 16:16 | CE ---
CARDIAC ELECTROPHYSIOLOGY REPORT EVENT MONITOR: DATE OF SERVICE: January 27, 2020 REFERRING PHYSICIAN: Dr. Polo. The baseline rhythm appeared to be sinus mechanism. The patient did have multiple episodes of atrial ectopies in the term of PACs as well as atrial bigeminy and atrial trigeminy. Also, the patient noted to have multiple short episodes of atrial tachycardia. No significant ventricular ectopies noted. No significant sinus pause or sinus arrest seen. CONCLUSION: 1. This is a 4 week event monitor. 2. Sinus rhythm as a baseline mechanism. 3. Frequent atrial ectopies seen in the term of PACs as well as couplets. 4. The patient did have multiple short episodes of atrial tachycardia. 5. No significant sinus pause or sinus arrest seen. MMODL / IJN: [id number] /
--- NOTE | 2020-03-02 11:45 | EM ---
EVENT MONITOR EVENT MONITOR: INDICATION: Syncope. Underlying rhythm is sinus. There were rare PVCs and frequent PAC noted. There were no episodes of sustained ventricular or supraventricular tachyarrhythmias. There were no episodes of more than 2-second pauses. Frequent PVCs, including ventricular bigeminy is noted. CONCLUSION: This event monitor shows sinus rhythm with frequent PACs and PVCs including atrial and ventricular bigeminy. MMODL / IJN: [id number] /
== END | disposition home or self-care (01) ==
LOC: RADECHMAIN 12:00
PROVIDERS: ATTEND Family Medicine
DX: I49.1 Atrial premature depolarization (principal); I47.1 Supraventricular tachycardia; I49.3 Ventricular premature depolarization
CPT/HCPCS: 93270

== ENCOUNTER 2020-10-09 20:01 | Inpatient (IN) | payer MEDICARE ==
--- NOTE | 2020-10-09 20:30 | ED ---
SOB HPI - General Chief Complaint: Shortness of Breath Stated Complaint: COVID +,SOB Time Seen by Provider: 10/09/20 20:28 Source: patient Mode of arrival: wheelchair Limitations: no limitations - History of Present Illness Initial Comments: 70-year-old male with past history of heart failure, COPD on 2 L home O2, [facility] Patient has had increased shortness of breath, nausea, vomiting, diarrhea for the past one week. Today [facility] the patient has positive for Covid and was instructed to go over to the ER due to his hypoxia. Patient's memory is normal 2 L and has remained short of breath. Admits to nonproductive cough. Denies chest pain. Has been taking his Xarelto as directed. Not missed any doses. Denies any lower extremity swelling. No alleviating, precipitating or modifying factors - Related Data Home Medications Medication Instructions Recorded Confirmed Aspirin EC [Ecotrin Low Dose] 81 mg PO DAILY 09/16/15 10/09/20 Betamethasone Dipropionate 1 applic TOPICAL DAILY PRN 09/16/15 10/09/20 [Diprolene AF 0.05% Cream] Budesonide-Formot 160-4.5 Mcg 2 puff INHALATION RT-BID 09/16/15 10/09/20 [Symbicort 160-4.5 Mcg Inhaler] Albuterol Sulfate [Proventil Hfa] 2 puff INHALATION RT-Q6H PRN 01/13/17 10/09/20 Mirtazapine 15 mg PO HS 01/13/17 10/09/20 Rivaroxaban [Xarelto] 20 mg PO DAILY 01/13/17 10/09/20 Tiotropium 18 Mcg/Puff [Spiriva] 2 puff INHALATION RT-DAILY 01/13/17 10/09/20 Atomoxetine HCl [Strattera] 40 mg PO DAILY 01/31/17 10/09/20 Atomoxetine HCl [Strattera] 60 mg PO DAILY 01/31/17 10/09/20 Rosuvastatin [Crestor] 10 mg PO HS 01/31/17 10/09/20 Venlafaxine HCl [Effexor] 150 mg PO BID 01/31/17 10/09/20 Furosemide [Lasix] 40 mg PO DAILY 08/11/17 10/09/20 Allopurinol [Zyloprim] 300 mg PO DAILY 11/09/18 10/09/20 Multivitamins, Thera [Multivitamin 1 tab PO DAILY 12/25/18 10/09/20 (formulary)] Pantoprazole Sodium [Protonix] 40 mg PO DAILY 12/25/18 10/09/20 Cholecalciferol [Vitamin D3 (25 125 mcg PO DAILY 10/09/20 10/09/20 Mcg = 1000 Iu)] Loratadine [Claritin] 10 mg PO DAILY 10/09/20 10/09/20 Metoprolol Succinate (ER) [Toprol 75 mg PO DAILY 10/09/20 10/09/20 XL] Nebivolol HCl [Bystolic] 10 mg PO DAILY 10/09/20 10/09/20 Zolpidem [Ambien] 5 mg PO HS 10/09/20 10/09/20 levETIRAcetam [Keppra] 500 mg PO BID 10/09/20 10/09/20 Allergies Allergy/AdvReac Type Severity Reaction Status Date / Time benzoic acid Allergy Mild Unknown Verified 10/09/20 23:28 atorvastatin [From Lipitor] Allergy Unknown Verified 10/09/20 23:29 corn Allergy Unknown Verified 10/09/20 23:28 epoxy resin Allergy Unknown Verified 10/09/20 23:28 milk Allergy Unknown Verified 10/09/20 23:28 mirabegron [From Myrbetriq] Allergy Rash/Hives Verified 10/09/20 23:28 silodosin [From Rapaflo] Allergy Rash/Hives Verified 10/09/20 23:28 simvastatin [From Zocor] Allergy Unknown Verified 10/09/20 23:29 solifenacin [From Vesicare] Allergy Rash/Hives Verified 10/09/20 23:28 wheat Allergy Unknown Verified 10/09/20 23:28 BASALM OF EDWARDO Allergy Mild Unknown Uncoded 10/09/20 23:28 DIALKYL THIOUREAS Allergy Mild Unknown Uncoded 10/09/20 23:28 DISPERSE BLUE 124 Allergy Mild Unknown Uncoded 10/09/20 23:28 RYAN GRASS Allergy Unknown Uncoded 10/09/20 23:28 neoprene Allergy Rash/Hives Uncoded 10/09/20 23:28 Review of Systems ROS Statement: Those systems with pertinent positive or pertinent negative responses have been documented in the HPI. ROS Other: All systems not noted in ROS Statement are negative. Past Medical History Past Medical History: Coronary Artery Disease (CAD), Cancer, Chest Pain / Angina, Heart Failure, COPD, Deep Vein Thrombosis (DVT), GERD/Reflux, Hyperlipidemia, Hypertension, Myocardial Infarction ([place]), Osteoarthritis (OA), Prostate Disorder, Pulmonary Embolus (PE), Skin Disorder, Sleep Apnea/CPAP/BIPAP, Vascular Disorder Additional Past Medical History / Comment(s): Right subclavian steal syndrome with paralysis of the right diaphragm, benign prostatic hypertrophy, bladder ret ention. CPAP use, continuous O2 2L/min. Anemia. Hx skin cancer on face. Hx cyst on kidney. Last Myocardial Infarction Date:: 2008 History of Any Multi-Drug Resistant Organisms: None Reported Past Surgical History: Heart Catheterization, Joint Replacement, Orthopedic Surgery, Prostate Surgery Additional Past Surgical History / Comment(s): Bilateral HIP REPLACEMENT, BILATERAL KNEE REPLACEMENT, TURP X2, TRANSPORT OF THE SUBCLAVIAN, STENT OF THE SUBCLAVIAN, B/L shoulder surgery, penile implant. Dizzy spells, SOB. Past Anesthesia/Blood Transfusion Reactions: No Reported Reaction Past Psychological History: ADD/ADHD, Depression, PTSD Past Alcohol Use History: None Reported Past Drug Use History: None Reported - Past Family History Father Family Medical History: Cancer Additional Family Medical History / Comment(s): Father from mesothelioma lung cancer. Mother Family Medical History: CVA/TIA, Hypertension Additional Family Medical History / Comment(s): Mother is living and is 88 yrs old. General Exam Limitations: no limitations General appearance: alert, in no apparent distress Head exam: Present: atraumatic, normocephalic, normal inspection Eye exam: Present: normal appearance, PERRL, EOMI. Absent: scleral icterus, conjunctival injection, periorbital swelling ENT exam: Present: normal exam, mucous membranes moist Neck exam: Present: normal inspection. Absent: tenderness, meningismus, lymphadenopathy Respiratory exam: Present: normal lung sounds bilaterally, respiratory distress, accessory muscle use, other (tachypnia). Absent: wheezes, rales, rhonchi, stridor Cardiovascular Exam: Present: normal rhythm, tachycardia, normal heart sounds. Absent: systolic murmur, diastolic murmur, rubs, gallop, clicks GI/Abdominal exam: Present: soft, normal bowel sounds. Absent: distended, tenderness, guarding, rebound, rigid Extremities exam: Present: normal inspection, full ROM, normal capillary refill. Absent: tenderness, pedal edema, joint swelling, calf tenderness Back exam: Present: normal inspection Neurological exam: Present: alert, oriented X3, CN II-XII intact Psychiatric exam: Present: normal affect, normal mood Skin exam: Present: warm, dry, intact, normal color. Absent: rash Course Vital Signs 10/09/20 10/09/20 10/09/20 20:07 20:39 23:44 Temperature 98.9 F 100.8 F H Pulse Rate 117 H 97 Respiratory 22 26 H 20 Rate Blood Pressure 121/80 126/75 O2 Sat by Pulse 91 L 94 L Oximetry Medical Decision Making - Medical Decision Making Upon arrival the patient is placed in room 3. A thorough history and physical exam is performed. He does arrive saturating 91% on his 2 L. Heart rate is 116. Patient does spike a temp up to 100.8. Tylenol was ordered. Albuterol treatment also ordered. Lab studies are conducted. a portable chest x-rays performed. D-dimer is 0.18. Covid detected. C-reactive protein 88.5. Chest x-ray demonstrates new mid bilateral pulmonary interstitial infiltrates. Due to the patient's worker breathing I did order Decadron. Discuss the case with Dr. Jaffe who agreed to admit the patient. We'll place pulmonology on consult. Patient's medications are ordered. Dr Jaffe requesting azithromycin. Patient agreed to this treatment plan and he is currently awaiting a bed on the floor - Lab Data Result diagrams: 10/10/20 08:45 10/10/20 08:45 Lab Results 10/09/20 10/09/20 10/09/20 Range/Units 21:20 21:20 21:20 WBC 7.0 (3.8-10.6) k/uL RBC 4.45 (4.30-5.90) m/uL Hgb 14.2 (13.0-17.5) gm/dL Hct 42.0 (39.0-53.0) % MCV 94.4 (80.0-100.0) fL MCH 31.9 (25.0-35.0) pg MCHC 33.8 (31.0-37.0) g/dL RDW 13.8 (11.5-15.5) % Plt Count 119 L (150-450) k/uL MPV 8.2 Neutrophils % 84 % Lymphocytes % 10 % Monocytes % 4 % Eosinophils % 1 % Basophils % 1 % Neutrophils # 5.9 (1.3-7.7) k/uL Lymphocytes # 0.7 L (1.0-4.8) k/uL Monocytes # 0.3 (0-1.0) k/uL Eosinophils # 0.1 (0-0.7) k/uL Basophils # 0.0 (0-0.2) k/uL PT 12.1 H (9.0-12.0) sec INR 1.2 H (<1.2) APTT 29.6 (22.0-30.0) sec D-Dimer 0.18 (<0.60) mg/L FEU Sodium 140 (137-145) mmol/L Potassium 3.7 (3.5-5.1) mmol/L Chloride 103 (98-107) mmol/L Carbon Dioxide 26 (22-30) mmol/L Anion Gap 11 mmol/L BUN 24 H (9-20) mg/dL Creatinine 1.47 H (0.66-1.25) mg/dL Est GFR (CKD-EPI)AfAm 54 (>60 ml/min/1.73 sqM) Est GFR (CKD-EPI)NonAf 47 (>60 ml/min/1.73 sqM) Glucose 120 H (74-99) mg/dL Plasma Lactic Acid Joon (0.7-2.0) mmol/L Calcium 8.8 (8.4-10.2) mg/dL Magnesium 1.7 (1.6-2.3) mg/dL Total Bilirubin 0.5 (0.2-1.3) mg/dL AST 52 (17-59) U/L ALT 47 (4-49) U/L Alkaline Phosphatase 77 (38-126) U/L Troponin I (0.000-0.034) ng/mL C-Reactive Protein 88.5 H (<10.0) mg/L NT-Pro-B Natriuret Pep pg/mL Total Protein 7.2 (6.3-8.2) g/dL Albumin 4.1 (3.5-5.0) g/dL Procalcitonin (0.02-0.09) ng/mL Coronavirus (PCR) (Not Detectd) 10/09/20 10/09/20 10/09/20 Range/Units 21:20 21:20 21:20 WBC (3.8-10.6) k/uL RBC (4.30-5.90) m/uL Hgb (13.0-17.5) gm/dL Hct (39.0-53.0) % MCV (80.0-100.0) fL MCH (25.0-35.0) pg MCHC (31.0-37.0) g/dL RDW (11.5-15.5) % Plt Count (150-450) k/uL MPV Neutrophils % % Lymphocytes % % Monocytes % % Eosinophils % % Basophils % % Neutrophils # (1.3-7.7) k/uL Lymphocytes # (1.0-4.8) k/uL Monocytes # (0-1.0) k/uL Eosinophils # (0-0.7) k/uL Basophils # (0-0.2) k/uL PT (9.0-12.0) sec INR (<1.2) APTT (22.0-30.0) sec D-Dimer (<0.60) mg/L FEU Sodium (137-145) mmol/L Potassium (3.5-5.1) mmol/L Chloride (98-107) mmol/L Carbon Dioxide (22-30) mmol/L Anion Gap mmol/L BUN (9-20) mg/dL Creatinine (0.66-1.25) mg/dL Est GFR (CKD-EPI)AfAm (>60 ml/min/1.73 sqM) Est GFR (CKD-EPI)NonAf (>60 ml/min/1.73 sqM) Glucose (74-99) mg/dL Plasma Lactic Acid Joon 1.4 (0.7-2.0) mmol/L Calcium (8.4-10.2) mg/dL Magnesium (1.6-2.3) mg/dL Total Bilirubin (0.2-1.3) mg/dL AST (17-59) U/L ALT (4-49) U/L Alkaline Phosphatase (38-126) U/L Troponin I 0.016 (0.000-0.034) ng/mL C-Reactive Protein (<10.0) mg/L NT-Pro-B Natriuret Pep 214 pg/mL Total Protein (6.3-8.2) g/dL Albumin (3.5-5.0) g/dL Procalcitonin (0.02-0.09) ng/mL Coronavirus (PCR) (Not Detectd) 10/09/20 10/09/20 Range/Units 21:20 21:30 WBC (3.8-10.6) k/uL RBC (4.30-5.90) m/uL Hgb (13.0-17.5) gm/dL Hct (39.0-53.0) % MCV (80.0-100.0) fL MCH (25.0-35.0) pg MCHC (31.0-37.0) g/dL RDW (11.5-15.5) % Plt Count (150-450) k/uL MPV Neutrophils % % Lymphocytes % % Monocytes % % Eosinophils % % Basophils % % Neutrophils # (1.3-7.7) k/uL Lymphocytes # (1.0-4.8) k/uL Monocytes # (0-1.0) k/uL Eosinophils # (0-0.7) k/uL Basophils # (0-0.2) k/uL PT (9.0-12.0) sec INR (<1.2) APTT (22.0-30.0) sec D-Dimer (<0.60) mg/L FEU Sodium (137-145) mmol/L Potassium (3.5-5.1) mmol/L Chloride (98-107) mmol/L Carbon Dioxide (22-30) mmol/L Anion Gap mmol/L BUN (9-20) mg/dL Creatinine (0.66-1.25) mg/dL Est GFR (CKD-EPI)AfAm (>60 ml/min/1.73 sqM) Est GFR (CKD-EPI)NonAf (>60 ml/min/1.73 sqM) Glucose (74-99) mg/dL Plasma Lactic Acid Joon (0.7-2.0) mmol/L Calcium (8.4-10.2) mg/dL Magnesium (1.6-2.3) mg/dL Total Bilirubin (0.2-1.3) mg/dL AST (17-59) U/L ALT (4-49) U/L Alkaline Phosphatase (38-126) U/L Troponin I (0.000-0.034) ng/mL C-Reactive Protein (<10.0) mg/L NT-Pro-B Natriuret Pep pg/mL Total Protein (6.3-8.2) g/dL Albumin (3.5-5.0) g/dL Procalcitonin 0.22 H (0.02-0.09) ng/mL Coronavirus (PCR) Detected A (Not Detectd) - EKG Data EKG Comments: EKG demonstrates a sinus tachycardia with a ventricular rate of 108. DE interval 128. QRS 138. QTC 466. No acute ST segment elevations Disposition Clinical Impression: Chronic respiratory failure, Acute respiratory insufficiency, COVID-19 Disposition: ADMITTED IP TO THIS [facility] Condition: Serious Is patient prescribed a controlled substance at d/c from ED?: No Decision to Admit Reason: Admit from EC Decision Date: 10/09/20 Decision Time: 23:00
[2020-10-09 21:39] LABS: Basophils % (A) 1 %; Eosinophils # (A) 0.1 k/uL (0-0.7); Eosinophils % (A) 1 %; HGB 14.2 gm/dL (13.0-17.5); Lymphocytes # (A) 0.7 k/uL (1.0-4.8); Lymphocytes % (A) 10 %; MCH 31.9 pg (25.0-35.0); MCHC 33.8 g/dL (31.0-37.0); MCV 94.4 fL (80.0-100.0); Mean Platelet Volume 8.2; Monocytes # (A) 0.3 k/uL (0-1.0); Monocytes % (A) 4 %; Neutrophils # (A) 5.9 k/uL (1.3-7.7); Neutrophils % (A) 84 %; Platelet Count 119 k/uL (150-450); RBC 4.45 m/uL (4.30-5.90); RDW 13.8 % (11.5-15.5)
[2020-10-09 21:53] LABS: D-Dimer 0.18 mg/L FEU (<0.60); INR 1.2 (<1.2); Partial Thromboplastin Time 29.6 sec (22.0-30.0); Prothrombin Time 12.1 sec (9.0-12.0)
[2020-10-09 22:03] LABS: Albumin 4.1 g/dL (3.5-5.0); Calcium 8.8 mg/dL (8.4-10.2); Potassium 3.7 mmol/L (3.5-5.1); Total Protein 7.2 g/dL (6.3-8.2)
[2020-10-09 22:05] LABS: Magnesium 1.7 mg/dL (1.6-2.3); Total Bilirubin 0.5 mg/dL (0.2-1.3)
--- NOTE | 2020-10-09 22:10 | XR ---
EXAMINATION TYPE: XR chest 1V portable DATE OF EXAM: 10/09/2020 COMPARISON: 06/23/2020 HISTORY: Short of breath TECHNIQUE: Single view FINDINGS: There is mild pulmonary interstitial infiltrates. There is poor inspiration. There is bilat eral shoulder surgery. There are no hilar masses. IMPRESSION: There are new mild bilateral pulmonary interstitial infiltrates compared to old exam. The re is basilar atelectasis unchanged.
[2020-10-09 22:31] LABS: C Reactive Protein 88.5 mg/L (<10.0)
[2020-10-09] MEDS ORDERED: NALOXONE 0.4 MG/ML 1 ML VIAL IV PRN (23:00)
[2020-10-09] MEDS ORDERED: ACETAMINOPHEN TAB 325 MG TAB PO PRN (23:00)
[2020-10-09] MEDS ORDERED: DEXAMETHASONE SOD PHOSPHATE 10 MG/ML 1 ML VIAL IV SCH (23:15)
[2020-10-10] MEDS: NON FORMULARY DRUG (Rosuvastatin 20 MG Tablet) PO SCH ×2 (01:00→22:16)
[2020-10-10] MEDS: DEXAMETHASONE SOD PHOSPHATE 10 MG/ML 1 ML VIAL IV SCH ×2 (01:26→09:50)
[2020-10-10] MEDS: MIRTAZAPINE 15 MG TAB PO SCH ×2 (01:27→22:16)
[2020-10-10] MEDS: AZITHROMYCIN 500 MG in SODIUM CHLORIDE 0.9% 250 ML IVPB SCH ×2 (01:27→22:16)
[2020-10-10] MEDS: VENLAFAXINE HCL 75 MG TAB PO SCH ×3 (01:27→22:16)
[2020-10-10] MEDS: levETIRAcetam 500 MG TAB PO SCH ×3 (01:27→22:16)
[2020-10-10] MEDS: TIOTROPIUM 2.5 MCG INHALER INHALATION SCH (08:09)
[2020-10-10] MEDS: SYMBICORT 160-4.5 MCG INHALER INHALATION SCH ×2 (08:09→20:02)
[2020-10-10] MEDS: ALBUTEROL HFA INHALER INHALATION PRN ×4 (08:09→20:02)
[2020-10-10] MEDS ORDERED: BETAMETHASONE DIPROPIONATE 0.05% CREAM 15 GM TUBE TOPICAL PRN (09:00)
[2020-10-10 09:40] LABS: Basophils % (A) 0 %; Eosinophils % (A) 0 %; HCT 38.2 % (39.0-53.0); HGB 12.9 gm/dL (13.0-17.5); Lymphocytes # (A) 0.7 k/uL (1.0-4.8); Lymphocytes % (A) 15 %; MCH 32.4 pg (25.0-35.0); MCHC 33.8 g/dL (31.0-37.0); MCV 95.8 fL (80.0-100.0); Mean Platelet Volume 7.8; Monocytes # (A) 0.1 k/uL (0-1.0); Monocytes % (A) 2 %; Neutrophils # (A) 3.9 k/uL (1.3-7.7); Neutrophils % (A) 82 %; Platelet Count 116 k/uL (150-450); RBC 3.99 m/uL (4.30-5.90); RDW 13.9 % (11.5-15.5); WBC 4.7 k/uL (3.8-10.6)
[2020-10-10] MEDS: NON FORMULARY DRUG (Atomoxetine Hcl [Strattera] 60 MG Capsule) PO SCH (09:47)
[2020-10-10] MEDS: NON FORMULARY DRUG (Atomoxetine Hcl [Strattera] 40 MG Capsule) PO SCH (09:47)
[2020-10-10] MEDS: FUROSEMIDE 40 MG TAB PO SCH (09:48)
[2020-10-10] MEDS: RIVAROXABAN 20 MG TAB PO SCH (09:48)
[2020-10-10] MEDS: CHOLECALCIFEROL 25 MCG (1000 IU) TABLET PO SCH (09:49)
[2020-10-10] MEDS: PANTOPRAZOLE 40 MG TABLET PO SCH (09:49)
[2020-10-10] MEDS: ASPIRIN 81 MG PO SCH (09:49)
[2020-10-10] MEDS: MULTIVITAMINS, THERA 1 EACH TAB PO SCH (09:49)
[2020-10-10] MEDS: NEBIVOLOL 5 MG TAB PO SCH (09:49)
[2020-10-10] MEDS: METOPROLOL SUCCINATE (ER) 25 MG TAB.ER.24H PO SCH (09:50)
[2020-10-10] MEDS: LORATADINE 10 MG TAB PO SCH (09:50)
[2020-10-10] MEDS: allopurinoL 300 MG TAB PO SCH (09:50)
[2020-10-10 09:57] LABS: Calcium 8.5 mg/dL (8.4-10.2); Potassium 4.3 mmol/L (3.5-5.1)
[2020-10-10 10:13] LABS: Ferritin 533.7 ng/mL (22.0-322.0)
--- NOTE | 2020-10-10 14:11 | P.CNPUL ---
History of Present Illness Consult date: 10/10/20 Requesting physician: Kathleen Jaffe Reason for consult: dyspnea, cough, abnormal CXR/CT (Mild bilateral pulmonary interstitial infiltrates) Chief complaint: Shortness of breath, cough, weakness and fatigue History of present illness: This is a pleasant 70-year-old gentleman follows with Dr. Polo as his primary care provider. He has a history of coronary artery disease, peripheral vascular disease, congestive heart failure, hyperlipidemia, hypertension, PE/DVT, obstructive sleep apnea utilizing CPAP, chronic obstructive pulmonary disease on home oxygen at 2 L/m per nasal cannula. The patient is a 1 week history of increasing shortness of breath, nausea, vomiting, diarrhea, weakness and was seen at [facility] and tested positive for CoVID and was instructed to go to the emergency room. Chest x-ray reveals mild bilateral pulmonary interstitial infiltrates. He is seen today in consultation on the selective care unit. He is currently sitting up in bed. Awake and alert in no acute distress. He is maintaining good O2 saturations in the mid 90s on 2 L/m per nasal cannula. He is afebrile. Hemodynamically stable. White count 4.7. Hemoglobin 12.9. Platelet count 116. Lymphocytes 0.7. D-dimer 0.18. Sodium 139. Potassium 4.3. Creatinine 1.51. LDH 784. C-reactive protein 88.5. Pro Calcitonin 0.22. He's been initiated on Symbicort, albuterol. Endocrine related with Xarelto. On dexamethasone, multivitamin. Review of Systems REVIEW OF SYSTEMS: CONSTITUTIONAL: Generalized fatigue, weakness. Denies any recent significant weight loss or weight gain. EYES: Denies change in vision. EARS, NOSE, MOUTH, THROAT: Denies headaches, denies sore throat. CARDIOVASCULAR: Denies chest pain, palpitations or syncopal episodes. RESPIRATORY: Positive for shortness of breath, cough, congestion no hemoptysis. GASTROINTESTINAL: Positive for nausea, vomiting, diarrhea GENITOURINARY: Denies hematuria, denies infections. MUSKULOSKELETAL: Denies pain, denies swelling. INTEGUMENTARY: Denies rash, denies eczema. NEUROLOGICAL: Denies recent memory loss, no recent seizure activity. PSYCHIATRIC: Denies anxiety, denies depression. HEMATOLOGIC/LYMPHATIC: Denies anemia, denies enlarged lymph nodes. Past Medical History Past Medical History: Coronary Artery Disease (CAD), Cancer, Chest Pain / Angina, Heart Failure, COPD, Deep Vein Thrombosis (DVT), GERD/Reflux, Hyperlipidemia, Hypertension, Myocardial Infarction ([place]), Osteoarthritis (OA), Prostate Disorder, Pulmonary Embolus (PE), Skin Disorder, Sleep A pnea/CPAP/BIPAP, Vascular Disorder Additional Past Medical History / Comment(s): Right subclavian steal syndrome with paralysis of the right diaphragm, benign prostatic hypertrophy, bladder retention. CPAP use, continuous O2 2L/min. Anemia. Hx skin cancer on face. Hx cyst on kidney. Last Myocardial Infarction Date:: 2008 History of Any Multi-Drug Resistant Organisms: None Reported Past Surgical History: Heart Catheterization, Joint Replacement, Orthopedic Surgery, Prostate Surgery Additional Past Surgical History / Comment(s): Bilateral HIP REPLACEMENT, BILATERAL KNEE REPLACEMENT, TURP X2, TRANSPORT OF THE SUBCLAVIAN, STENT OF THE SUBCLAVIAN, B/L shoulder surgery, penile implant. Dizzy spells, SOB. Past Anesthesia/Blood Transfusion Reactions: No Reported Reaction Past Psychological History: ADD/ADHD, Depression, PTSD Additional Psychological History / Comment(s): Pt resides with his spouse. He has a cane and a walker he uses. He drives. He is independent. Smoking Status: Former smoker Past Alcohol Use History: None Reported Additional Past Alcohol Use History / Comment(s): Patient was a smoker one pack per day for 37 years and quit in 2004. Past Drug Use History: None Reported - Past Family History Father Family Medical History: Cancer Additional Family Medical History / Comment(s): Father from mesothelioma lung cancer. Mother Family Medical History: CVA/TIA, Hypertension Additional Family Medical History / Comment(s): Mother is living and is 88 yrs old. Medications and Allergies Home Medications Medication Instructions Recorded Confirmed Type Aspirin EC [Ecotrin Low Dose] 81 mg PO DAILY 09/16/15 10/09/20 History Betamethasone Dipropionate 1 applic TOPICAL DAILY PRN 09/16/15 10/09/20 History [Diprolene AF 0.05% Cream] Budesonide-Formot 160-4.5 Mcg 2 puff INHALATION RT-BID 09/16/15 10/09/20 History [Symbicort 160-4.5 Mcg Inhaler] Albuterol Sulfate [Proventil Hfa] 2 puff INHALATION RT-Q6H PRN 01/13/17 10/09/20 History Mirtazapine 15 mg PO HS 01/13/17 10/09/20 History Rivaroxaban [Xarelto] 20 mg PO DAILY 01/13/17 10/09/20 History Tiotropium 18 Mcg/Puff [Spiriva] 2 puff INHALATION RT-DAILY 01/13/17 10/09/20 History Atomoxetine HCl [Strattera] 40 mg PO DAILY 01/31/17 10/09/20 History Atomoxetine HCl [Strattera] 60 mg PO DAILY 01/31/17 10/09/20 History Rosuvastatin [Crestor] 10 mg PO HS 01/31/17 10/09/20 History Venlafaxine HCl [Effexor] 150 mg PO BID 01/31/17 10/09/20 History Furosemide [Lasix] 40 mg PO DAILY 08/11/17 10/09/20 History Allopurinol [Zyloprim] 300 mg PO DAILY 11/09/18 10/09/20 History Multivitamins, Thera [Multivitamin 1 tab PO DAILY 12/25/18 10/09/20 History (formulary)] Pantoprazole Sodium [Protonix] 40 mg PO DAILY 12/25/18 10/09/20 History Cholecalciferol [Vitamin D3 (25 125 mcg PO DAILY 10/09/20 10/09/20 History Mcg = 1000 Iu)] Loratadine [Claritin] 10 mg PO DAILY 10/09/20 10/09/20 History Metoprolol Succinate (ER) [Toprol 75 mg PO DAILY 10/09/20 10/09/20 History XL] Nebivolol HCl [Bystolic] 10 mg PO DAILY 10/09/20 10/09/20 History Zolpidem [Ambien] 5 mg PO HS 10/09/20 10/09/20 History levETIRAcetam [Keppra] 500 mg PO BID 10/09/20 10/09/20 History Allergies Allergy/AdvReac Type Severity Reaction Status Date / Time benzoic acid Allergy Mild Unknown Verified 10/09/20 23:28 atorvastatin [From Lipitor] Allergy Unknown Verified 10/09/20 23:29 corn Allergy Unknown Verified 10/09/20 23:28 epoxy resin Allergy Unknown Verified 10/09/20 23:28 milk Allergy Unknown Verified 10/09/20 23:28 mirabegron [From Myrbetriq] Allergy Rash/Hives Verified 10/09/20 23:28 silodosin [From Rapaflo] Allergy Rash/Hives Verified 10/09/20 23:28 simvastatin [From Zocor] Allergy Unknown Verified 10/09/20 23:29 solifenacin [From Vesicare] Allergy Rash/Hives Verified 10/09/20 23:28 wheat Allergy Unknown Verified 10/09/20 23:28 BASALM OF EDWARDO Allergy Mild Unknown Uncoded 10/09/20 23:28 DIALKYL THIOUREAS Allergy Mild Unknown Uncoded 10/09/20 23:28 DISPERSE BLUE 124 Allergy Mild Unknown Uncoded 10/09/20 23:28 RYAN GRASS Allergy Unknown Uncoded 10/09/20 23:28 neoprene Allergy Rash/Hives Uncoded 10/09/20 23:28 Physical Exam Vitals: Vital Signs Temp Pulse Pulse Resp BP BP Pulse Ox 10/10/20 12:00 70 22 113/61 97 10/10/20 08:00 98.3 F 80 18 129/66 96 10/10/20 04:00 97.7 F 80 32 H 115/62 94 L 10/10/20 01:53 102 H 40 H 10/10/20 00:45 98.2 F 102 H 40 H 126/83 96 10/09/20 23:44 100.8 F H 97 20 126/75 94 L 10/09/20 20:39 26 H 10/09/20 20:07 98.9 F 117 H 22 121/80 91 L Intake and Output 10/09/20 10/10/20 10/10/20 22:59 06:59 14:59 Intake Total 236 Output Total 300 200 Balance -300 36 Intake: Oral 236 Output: Urine 300 200 Other: Voiding Method Bedside Commode Urinal Weight 120.656 kg 132.5 kg GENERAL EXAM: Alert, pleasant 70-year-old gentleman, on 2 L nasal cannula, comfortable in no apparent distress. HEAD: Normocephalic. EYES: Normal reaction of pupils, equal size. NOSE: Clear with pink turbinates. THROAT: No erythema or exudates. NECK: No masses, no JVD. CHEST: No chest wall deformity. LUNGS: Equal air entry with few scattered rhonchi, crackles in the bases. CVS: S1 and S2 normal with no audible murmur, regular rhythm. ABDOMEN: No hepatosplenomegaly, normal bowel sounds, no guarding or rigidity. SPINE: No scoliosis or deformity SKIN: No rashes CENTRAL NERVOUS SYSTEM: No focal deficits, tone is normal in all 4 extremities. EXTREMITIES: There is no peripheral edema. No clubbing, no cyanosis. Peripheral pulses are intact. Results - Laboratory Findings CBC and BMP: 10/10/20 08:45 10/10/20 08:45 PT/INR, D-dimer PT 12.1 sec (9.0-12.0) H 10/09/20 21:20 INR 1.2 (<1.2) H 10/09/20 21:20 D-Dimer 0.18 mg/L FEU (<0.60) 10/09/20 21:20 Abnormal lab findings: Abnormal Labs 10/09/20 10/09/20 10/09/20 21:20 21:20 21:20 RBC Hgb Hct Plt Count 119 L Lymphocytes # 0.7 L PT 12.1 H INR 1.2 H BUN 24 H Creatinine 1.47 H Glucose 120 H Ferritin Lactate Dehydrogenase C-Reactive Protein 88.5 H Procalcitonin Coronavirus (PCR) 10/09/20 10/09/20 10/10/20 21:20 21:30 01:20 RBC Hgb Hct Plt Count Lymphocytes # PT INR BUN Creatinine Glucose Ferritin 533.7 H Lactate Dehydrogenase 784 H C-Reactive Protein Procalcitonin 0.22 H Coronavirus (PCR) Detected A 10/10/20 10/10/20 08:45 08:45 RBC 3.99 L Hgb 12.9 L Hct 38.2 L Plt Count 116 L Lymphocytes # 0.7 L PT INR BUN 25 H Creatinine 1.51 H Glucose 133 H Ferritin Lactate Dehydrogenase C-Reactive Protein Procalcitonin Coronavirus (PCR) - Diagnostic Findings Chest x-ray: image reviewed Assessment and Plan Assessment: 1 Acute on chronic hypoxic respiratory failure secondary to acute CoVID 19 pneumonia 2 Elevated inflammatory markers secondary to above 3 Acute on chronic renal failure 4 Chronic hypoxic respiratory failure secondary to chronic obstructive pulmonary disease on home O2 at 2 L/m 5 Former smoker 6 History of coronary disease 7 Hyperlipidemia 8 Hypertension 9 History of PE/DVT anticoagulate with Xarelto 10 History of depression 11 Obstructive sleep apnea utilizing CPAP 12 History of peripheral vascular disease 13 BPH Plan: The patient was seen and evaluated by Dr. Ramos Currently stable from the pulmonary standpoint Chest x-ray and labs reviewed Continue the current treatment plan Probable discharge in the next 24 hours We will continue to follow and make further recommendations based on his clinical status I, the cosigning physician, performed a history & physical examination of the patient. Lungs sounds with few scattered rhonchi, crackles in the bilateral posterior bases. Maintaining good O2 saturations in the 90s on 2 L/m per nasal cannula. I discussed the assessment and plan of care with my nurse practitio gregorio, Kandis Pepe. I attest to the above consultation as dictated by her. Time with Patient: Greater than 30
--- NOTE | 2020-10-10 15:24 | P.HPIM ---
History of Present Illness H&P Date: 10/10/20 This is a 70 years old male patient of Dr. Polo with past medical history of pulmonary embolism diagnosed in [place] 2 years ago, history of lower extremity DVT, coronary artery disease no stent, history of heart failure unknown if systolic or diastolic, COPD, hyperlipidemia, hypertension, osteoarthritis, prostate cancer, skin disorder,'s obstructive sleep apnea on CPAP, subclavian steal syndrome with stent placement, history of recent penile implant on 07/27/2016. Patient has chronic shortness of breath that has been going on for the past 2 years since the diagnosis of pulmonary embolism with O2 requirements at 2 L nasal cannula Patient is currently on maintenance dose of xarelto at 10 mg daily. he presents emergency room secondary to worsening dyspnea, x 7 days without any medical intervention prior to this, He was seen in the Emergency room for the shortness of breath, worsening dyspnea and exertion, and was found to be SARS cov 2 positive. Chest x-ray, shows bilateral pulmonary interstitial infiltrates compared to old exam, with a similar atelectasis. Poor inspiration, no hilar masses laboratory shows hemoglobin of 12.9, WBC count of 7, creatinine of 1.47, iron of 1.2, glucose 120 CRP 88, pro-calcitonin slightly elevated 0.22. Patient denies any chronic prednisone exposure, Consult were made with pulmonary, Dr. Ramos, pulse oximetry would be 9 PT 1697 at 2-3 L nasal cannula, blood pressure of 129/66. Review of Systems Constitutional: Reports as per HPI, Reports anorexia, Denies chills, Denies chronic headaches, Denies chronic pain, Denies daytime sleepiness, Denies fatigue, Denies fever, Denies lethargy, Denies malaise, Denies night sweats, Denies poor appetite, Denies sweats, Denies weakness, Denies weight gain, Denies weight loss Ears, nose, mouth and throat: Reports as per HPI, Denies ant. neck pain, Denies bleeding gums, Denies dental pain, Denies dysphagia, Denies epistaxis, Denies headache, Denies hoarseness, Denies mouth pain, Denies nasal congestion, Denies nasal discharge, Denies neck fullness/pressure, Denies neck lump, Denies nose pain, Denies odynophagia, Denies post-nasal drip, Denies sinus pain, Denies sinus pressure, Denies swelling in mouth, Denies swelling in throat, Denies sore throat, Denies vertigo, Denies voice changes Cardiovascular: Reports as per HPI, Denies chest pain, Denies claudication, Denies decreased exercise tolerance, Denies dyspnea on exertion, Denies edema, Denies high blood pressure, Denies irregular heart beat, Denies leg edema, Denies lightheadedness, Denies orthopnea, Denies palpitations, Denies paroxysmal nocturnal dyspnea, Denies phlebitis, Denies rapid heart beat, Denies shortness of breath, Denies syncope Respiratory: Reports as per HPI, Reports cough, Reports dyspnea, Reports home oxygen Gastrointestinal: Reports as per HPI, Denies abdominal pain, Denies belching, Denies bloating, Denies BRBPR, Denies change in bowel habits, Denies coffee ground emesis, Denies constipation, Denies diarrhea, Denies dyspepsia, Denies early satiety, Denies excessive gas, Denies heartburn, Denies hematemesis, Denies hematochezia, Denies indigestion, Denies jaundice, Denies lactose intolerance, Denies loss of appetite, Denies melena, Denies nausea, Denies vomiting Genitourinary: Reports as per HPI, Denies decreased libido, Denies difficulties fathering child, Denies discharge, Denies dysuria, Denies erectile dysfunction, Denies flank pain, Denies genital pain, Denies genital sores, Denies hematuria, Denies impotence, Denies incontinence, Denies kidney stones, Denies nocturia, Denies polyuria, Denies testicular lump, Denies testicular pain, Denies urinary frequency, Denies urinary hesitancy, Denies urinary retention Musculoskeletal: Reports as per HPI, Denies arm numbness/tingling, Denies atrophy, Denies fractures, Denies frequent falls, Denies gait dysfunction, Denies hot joints, Denies leg numbness/tingling, Denies limitation of motion, Denies loss of height, Denies low back pain, Denies morning stiffness, Denies muscle cramps, Denies muscle weakness, Denies myalgias, Denies neck pain, Denies neck stiffness, Denies prior amputations, Denies redness of joints, Denies shooting arm pain, Denies shooting leg pain Integumentary: Reports as per HPI Neurological: Reports as per HPI, Denies aphasia, Denies ataxia, Denies balance difficulties, Denies burning pain, Denies change in mentation, Denies change in smell/taste, Denies change in speech, Denies confusion, Denies convulsions, Denies double vision, Denies gait dysfunction, Denies head injury, Denies headaches, Denies hearing difficulties, Denies lack of coordination, Denies loss of vision, Denies memory loss, Denies migraines, Denies motor disturbance, Denies numbness, Denies paralysis, Denies paresthesias, Denies seizures, Denies sensory deficit, Denies spasticity, Denies syncope, Denies tic, Denies tingling, Denies transient paralysis, Denies tremors, Denies vertigo, Denies weakness, Denies visual changes Psychiatric: Reports as per HPI Endocrine: Reports as per HPI, Denies cold intolerance, Denies deepening of the voice, Denies excessive sweating, Denies excessive thirst, Denies fatigue, Denies flushing, Denies heat intolerance, Denies high blood sugars, Denies increase in ring/shoe/hat size, Denies low blood sugars, Denies nocturia, Denies palpitations, Denies polydipsia, Denies polyphagia, Denies polyuria, Denies proptosis, Denies recent glucocorticoid use, Denies thyroid mass, Denies weight change Hematologic/Lymphatic: Reports as per HPI, Denies easy bleeding, Denies easy bruising, Denies lymphadenopathy, Denies lymphedema, Denies thrombophilia Allergic/Immunologic: Reports as per HPI, Denies allergic rhinitis, Denies anaphylaxis, Denies angioedema, Denies gluten intolerance, Denies persistent infections, Denies seasonal allergies, Denies urticaria, Denies wheezing Past Medical History Past Medical History: Coronary Artery Disease (CAD), Cancer, Chest Pain / Angina, Heart Failure, COPD, Deep Vein Thrombosis (DVT), GERD/Reflux, Hyperlipidemia, Hypertension, Myocardial Infarction (TN), Osteoarthritis (OA), Prostate Disorder, Pulmonary Embolus (PE), Skin Disorder, Sleep Apnea/CPAP/BIPAP, Vascular Disorder Additional Past Medical History / Comment(s): Right subclavian steal syndrome with paralysis of the right diaphragm, benign prostatic hypertrophy, bladder retention. CPAP use, continuous O2 2L/min. Anemia. Hx skin cancer on face. Hx cyst on kidney. Last Myocardial Infarction Date:: 2008 History of Any Multi-Drug Resistant Organisms: None Reported Past Surgical History: Heart Catheterization, Joint Replacement, Orthopedic Surgery, Prostate Surgery Additional Past Surgical History / Comment(s): Bilateral HIP REPLACEMENT, BILATERAL KNEE REPLACEMENT, TURP X2, TRANSPORT OF THE SUBCLAVIAN, STENT OF THE SUBCLAVIAN, B/L shoulder surgery, penile implant. Dizzy spells, SOB. Past Anesthesia/Blood Transfusion Reactions: No Reported Reaction Past Psychological History: ADD/ADHD, Depression, PTSD Additional Psychological History / Comment(s): Pt resides with his spouse. He has a cane and a walker he uses. He drives. He is independent. Smoking Status: Former smoker Past Alcohol Use History: None Reported Additional Past Alcohol Use History / Comment(s): Patient was a smoker one pack per day for 37 years and quit in 2004. Past Drug Use History: None Reported - Past Family History Father Family Medical History: Cancer Additional Family Medical History / Comment(s): Father from mesothelioma lung cancer. Mother Family Medical History: CVA/TIA, Hypertension Additional Family Medical History / Comment(s): Mother is living and is 88 yrs old. Medications and Allergies Home Medications Medication Instructions Recorded Confirmed Type Aspirin EC [Ecotrin Low Dose] 81 mg PO DAILY 09/16/15 10/09/20 History Betamethasone Dipropionate 1 applic TOPICAL DAILY PRN 09/16/15 10/09/20 History [Diprolene AF 0.05% Cream] Budesonide-Formot 160-4.5 Mcg 2 puff INHALATION RT-BID 09/16/15 10/09/20 History [Symbicort 160-4.5 Mcg Inhaler] Albuterol Sulfate [Proventil Hfa] 2 puff INHALATION RT-Q6H PRN 01/13/17 10/09/20 History Mirtazapine 15 mg PO HS 01/13/17 10/09/20 History Rivaroxaban [Xarelto] 20 mg PO DAILY 01/13/17 10/09/20 History Tiotropium 18 Mcg/Puff [Spiriva] 2 puff INHALATION RT-DAILY 01/13/17 10/09/20 History Atomoxetine HCl [Strattera] 40 mg PO DAILY 01/31/17 10/09/20 History Atomoxetine HCl [Strattera] 60 mg PO DAILY 01/31/17 10/09/20 History Rosuvastatin [Crestor] 10 mg PO HS 01/31/17 10/09/20 History Venlafaxine HCl [Effexor] 150 mg PO BID 01/31/17 10/09/20 History Furosemide [Lasix] 40 mg PO DAILY 08/11/17 10/09/20 History Allopurinol [Zyloprim] 300 mg PO DAILY 11/09/18 10/09/20 History Multivitamins, Thera [Multivitamin 1 tab PO DAILY 12/25/18 10/09/20 History (formulary)] Pantoprazole Sodium [Protonix] 40 mg PO DAILY 12/25/18 10/09/20 History Cholecalciferol [Vitamin D3 (25 125 mcg PO DAILY 10/09/20 10/09/20 History Mcg = 1000 Iu)] Loratadine [Claritin] 10 mg PO DAILY 10/09/20 10/09/20 History Metoprolol Succinate (ER) [Toprol 75 mg PO DAILY 10/09/20 10/09/20 History XL] Nebivolol HCl [Bystolic] 10 mg PO DAILY 10/09/20 10/09/20 History Zolpidem [Ambien] 5 mg PO HS 10/09/20 10/09/20 History levETIRAcetam [Keppra] 500 mg PO BID 10/09/20 10/09/20 History Allergies Allergy/AdvReac Type Severity Reaction Status Date / Time benzoic acid Allergy Mild Unknown Verified 10/09/20 23:28 atorvastatin [From Lipitor] Allergy Unknown Verified 10/09/20 23:29 corn Allergy Unknown Verified 10/09/20 23:28 epoxy resin Allergy Unknown Verified 10/09/20 23:28 milk Allergy Unknown Verified 10/09/20 23:28 mirabegron [From Myrbetriq] Allergy Rash/Hives Verified 10/09/20 23:28 silodosin [From Rapaflo] Allergy Rash/Hives Verified 10/09/20 23:28 simvastatin [From Zocor] Allergy Unknown Verified 10/09/20 23:29 solifenacin [From Vesicare] Allergy Rash/Hives Verified 10/09/20 23:28 wheat Allergy Unknown Verified 10/09/20 23:28 BASALM OF EDWARDO Allergy Mild Unknown Uncoded 10/09/20 23:28 DIALKYL THIOUREAS Allergy Mild Unknown Uncoded 10/09/20 23:28 DISPERSE BLUE 124 Allergy Mild Unknown Uncoded 10/09/20 23:28 RYAN GRASS Allergy Unknown Uncoded 10/09/20 23:28 neoprene Allergy Rash/Hives Uncoded 10/09/20 23:28 Physical Exam Vitals: Vital Signs Temp Pulse Pulse Resp BP BP Pulse Ox 10/10/20 08:00 98.3 F 80 18 129/66 96 10/10/20 04:00 97.7 F 80 32 H 115/62 94 L 10/10/20 01:53 102 H 40 H 10/10/20 00:45 98.2 F 102 H 40 H 126/83 96 10/09/20 23:44 100.8 F H 97 20 126/75 94 L 10/09/20 20:39 26 H 10/09/20 20:07 98.9 F 117 H 22 121/80 91 L Intake and Output 10/09/20 10/10/20 10/10/20 22:59 06:59 14:59 Intake Total 118 Output Total 300 200 Balance -300 -82 Intake: Oral 118 Output: Urine 300 200 Other: Voiding Method Bedside Commode Urinal Weight 120.656 kg 132.5 kg - Constitutional General appearance: no acute distress, obese - EENT Eyes: anicteric sclerae, EOMI, PERRLA, dentition normal, normal appearance ENT: NA/AT, normal oropharynx - Respiratory Respiratory: bilateral: CTA, diminished, negative: dullness - Cardiovascular Rhythm: regular Heart sounds: normal: S1, S2 Abnormal Heart Sounds: no systolic murmur, no diastolic murmur, no rub, no S3 Gallop, no S4 Gallop, no click, no other - Gastrointestinal General gastrointestinal: normal bowel sounds, soft - Integumentary Integumentary: normal - Neurologic Neurologic: CNII-XII intact Results CBC & Chem 7: 10/10/20 08:45 10/10/20 08:45 Labs: Abnormal Lab Results - Last 24 Hours (Table) 10/09/20 10/09/20 10/09/20 Range/Units 21:20 21:20 21:20 RBC (4.30-5.90) m/uL Hgb (13.0-17.5) gm/dL Hct (39.0-53.0) % Plt Count 119 L (150-450) k/uL Lymphocytes # 0.7 L (1.0-4.8) k/uL PT 12.1 H (9.0-12.0) sec INR 1.2 H (<1.2) BUN 24 H (9-20) mg/dL Creatinine 1.47 H (0.66-1.25) mg/dL Glucose 120 H (74-99) mg/dL Ferritin (22.0-322.0) ng/mL Lactate Dehydrogenase (313-618) U/L C-Reactive Protein 88.5 H (<10.0) mg/L Procalcitonin (0.02-0.09) ng/mL Coronavirus (PCR) (Not Detectd) 10/09/20 10/09/20 10/10/20 Range/Units 21:20 21:30 01:20 RBC (4.30-5.90) m/uL Hgb (13.0-17.5) gm/dL Hct (39.0-53.0) % Plt Count (150-450) k/uL Lymphocytes # (1.0-4.8) k/uL PT (9.0-12.0) sec INR (<1.2) BUN (9-20) mg/dL Creatinine (0.66-1.25) mg/dL Glucose (74-99) mg/dL Ferritin 533.7 H (22.0-322.0) ng/mL Lactate Dehydrogenase 784 H (313-618) U/L C-Reactive Protein (<10.0) mg/L Procalcitonin 0.22 H (0.02-0.09) ng/mL Coronavirus (PCR) Detected A (Not Detectd) 10/10/20 10/10/20 Range/Units 08:45 08:45 RBC 3.99 L (4.30-5.90) m/uL Hgb 12.9 L (13.0-17.5) gm/dL Hct 38.2 L (39.0-53.0) % Plt Count 116 L (150-450) k/uL Lymphocytes # 0.7 L (1.0-4.8) k/uL PT (9.0-12.0) sec INR (<1.2) BUN 25 H (9-20) mg/dL Creatinine 1.51 H (0.66-1.25) mg/dL Glucose 133 H (74-99) mg/dL Ferritin (22.0-322.0) ng/mL Lactate Dehydrogenase (313-618) U/L C-Reactive Protein (<10.0) mg/L Procalcitonin (0.02-0.09) ng/mL Coronavirus (PCR) (Not Detectd) Laboratory Results WBC 4.7 k/uL (3.8-10.6) 10/10/20 08:45 RBC 3.99 m/uL (4.30-5.90) L 10/10/20 08:45 Hgb 12.9 gm/dL (13.0-17.5) L 10/10/20 08:45 Hct 38.2 % (39.0-53.0) L 10/10/20 08:45 MCV 95.8 fL (80.0-100.0) 10/10/20 08:45 MCH 32.4 pg (25.0-35.0) 10/10/20 08:45 MCHC 33.8 g/dL (31.0-37.0) 10/10/20 08:45 RDW 13.9 % (11.5-15.5) 10/10/20 08:45 Plt Count 116 k/uL (150-450) L 10/10/20 08:45 MPV 7.8 10/10/20 08:45 Neutrophils % 82 % 10/10/20 08:45 Lymphocytes % 15 % 10/10/20 08:45 Monocytes % 2 % 10/10/20 08:45 Eosinophils % 0 % 10/10/20 08:45 Basophils % 0 % 10/10/20 08:45 Neutrophils # 3.9 k/uL (1.3-7.7) 10/10/20 08:45 Lymphocytes # 0.7 k/uL (1.0-4.8) L 10/10/20 08:45 Monocytes # 0.1 k/uL (0-1.0) 10/10/20 08:45 Eosinophils # 0.0 k/uL (0-0.7) 10/10/20 08:45 Basophils # 0.0 k/uL (0-0.2) 10/10/20 08:45 PT 12.1 sec (9.0-12.0) H 10/09/20 21:20 INR 1.2 (<1.2) H 10/09/20 21:20 APTT 29.6 sec (22.0-30.0) 10/09/20 21:20 D-Dimer 0.18 mg/L FEU (<0.60) 10/09/20 21:20 Sodium 139 mmol/L (137-145) 10/10/20 08:45 Potassium 4.3 mmol/L (3.5-5.1) 10/10/20 08:45 Chloride 103 mmol/L (98-107) 10/10/20 08:45 Carbon Dioxide 28 mmol/L (22-30) 10/10/20 08:45 Anion Gap 8 mmol/L 10/10/20 08:45 BUN 25 mg/dL (9-20) H 10/10/20 08:45 Creatinine 1.51 mg/dL (0.66-1.25) H 10/10/20 08:45 Est GFR (CKD-EPI)AfAm 53 (>60 ml/min/1.73 sqM) 10/10/20 08:45 Est GFR (CKD-EPI)NonAf 46 (>60 ml/min/1.73 sqM) 10/10/20 08:45 Glucose 133 mg/dL (74-99) H 10/10/20 08:45 Plasma Lactic Acid Joon 1.4 mmol/L (0.7-2.0) 10/09/20 21:20 Calcium 8.5 mg/dL (8.4-10.2) 10/10/20 08:45 Magnesium 1.7 mg/dL (1.6-2.3) 10/09/20 21:20 Ferritin 533.7 ng/mL (22.0-322.0) H 10/10/20 01:20 Total Bilirubin 0.5 mg/dL (0.2-1.3) 10/09/20 21:20 AST 52 U/L (17-59) 10/09/20 21:20 ALT 47 U/L (4-49) 10/09/20 21:20 Alkaline Phosphatase 77 U/L (38-126) 03/19/21 21:20 Lactate Dehydrogenase 784 U/L (313-618) H 10/10/20 01:20 Troponin I 0.016 ng/mL (0.000-0.034) 10/09/20 21:20 C-Reactive Protein 88.5 mg/L (<10.0) H 10/09/20 21:20 NT-Pro-B Natriuret Pep 214 pg/mL 10/09/20 21:20 Total Protein 7.2 g/dL (6.3-8.2) 10/09/20 21:20 Albumin 4.1 g/dL (3.5-5.0) 10/09/20 21:20 Procalcitonin 0.22 ng/mL (0.02-0.09) H 10/09/20 21:20 Coronavirus (PCR) Detected (Not Detectd) A 10/09/20 21:30 Thrombosis Risk Factor Assmnt - DVT/VTE Prophylaxis DVT/VTE Prophylaxis: Pharmacologic Prophylaxis ordered - Choose All That Apply Any of the Below Risk Factors Present?: Yes Each Factor Represents 1 point: Abnormal pulmonary function (COPD), Medical pt on bed rest, Obesity (BMI >25), Serious lung disease incl. pneumonia (< 1month), Swollen legs (current) Each Risk Factor Represents 2 Points: Age 61-74 years Each Risk Factor Represents 3 Points: History of DVT/PE Other congenital or acquired thrombophilia - If yes, enter type in comment: No Thrombosis Risk Factor Assessment Total Risk Factor Score: 10 Thrombosis Risk Factor Assessment Level: High Risk Assessment and Plan Plan: 1. 1. Acute SARS COV2, infection with chronic hypoxemia, we're going to monitor him for worsening hypoxemia as well as respiratory distress, consult was made with Dr. Ramos, covered markers are minimally elevated, on dexamethasone 6 mg, Zithromax, albuterol 2. Chronic anticoagulation, secondary to history of DVT in the past, long-term anticoagulation using Xarelto, which is maintained 3 History of DVT of the right leg in December 2013, resolved on Lasix 40 mg daily, 4. COPD. Continue albuterol- Atrovent as needed . Continue Symbicort twice daily 5 Hyperlipidemia. Continue Crestor daily. 6 Subclavian steal syndrome status post stent in the right carotid. 7 Benign prostatic hypertrophy. Monitor for urinary retention. Continue Flomax daily 8 History of coronary artery disease with previous myocardial infarction. 9 Obstructive Sleep apnea. Patient to continue his own CPAP machine. 10 Gastroesophageal reflux disease and gastric intestinal prophylaxis. Continue Nexium or equivalent. 11. Hypertension. Continue bystolic 10 mg daily . Hold Lasix and Spiriva lactone. 12. Depression. Continue Cymbalta 150 mg twice daily. 13. History of ADHD. Strattera on hold. Lesion on discharge 13. Disposition -patient need 1-2 inpatient nights for evaluation of pulmonary embolism 14 chronic kidney disease stage III, stable 15 history of ischemic cardiomyopathy with prior ejection fraction 40%, Lasix 40 mg daily aspirin 81 mg metoprolol no changes made 15 CODE STATUS full code
[2020-10-11] MEDS: NON FORMULARY DRUG (Atomoxetine Hcl [Strattera] 40 MG Capsule) PO SCH (07:47)
[2020-10-11] MEDS: NON FORMULARY DRUG (Atomoxetine Hcl [Strattera] 60 MG Capsule) PO SCH (07:47)
[2020-10-11] MEDS: SYMBICORT 160-4.5 MCG INHALER INHALATION SCH ×2 (08:02→19:27)
[2020-10-11] MEDS: ALBUTEROL HFA INHALER INHALATION PRN ×4 (08:02→19:27)
[2020-10-11] MEDS: TIOTROPIUM 2.5 MCG INHALER INHALATION SCH (08:02)
[2020-10-11] MEDS: MULTIVITAMINS, THERA 1 EACH TAB PO SCH (09:50)
[2020-10-11] MEDS: RIVAROXABAN 20 MG TAB PO SCH (09:50)
[2020-10-11] MEDS: VENLAFAXINE HCL 75 MG TAB PO SCH ×2 (09:50→20:33)
[2020-10-11] MEDS: DEXAMETHASONE SOD PHOSPHATE 10 MG/ML 1 ML VIAL IV SCH (09:50)
[2020-10-11] MEDS: METOPROLOL SUCCINATE (ER) 25 MG TAB.ER.24H PO SCH (09:51)
[2020-10-11] MEDS: LORATADINE 10 MG TAB PO SCH (09:51)
[2020-10-11] MEDS: CHOLECALCIFEROL 25 MCG (1000 IU) TABLET PO SCH (09:51)
[2020-10-11] MEDS: FUROSEMIDE 40 MG TAB PO SCH (09:51)
[2020-10-11] MEDS: PANTOPRAZOLE 40 MG TABLET PO SCH (09:51)
[2020-10-11] MEDS: ASPIRIN 81 MG PO SCH (09:51)
[2020-10-11] MEDS: NEBIVOLOL 5 MG TAB PO SCH (09:51)
[2020-10-11] MEDS: levETIRAcetam 500 MG TAB PO SCH ×2 (09:52→20:33)
[2020-10-11] MEDS: allopurinoL 300 MG TAB PO SCH (09:52)
--- NOTE | 2020-10-11 14:05 | P.PN ---
Subjective Progress Note Date: 10/11/20 Principal diagnosis: CoVID 19 pneumonia This is a pleasant 70-year-old gentleman follows with Dr. Polo as his primary care provider. He has a history of coronary artery disease, peripheral vascular disease, congestive heart failure, hyperlipidemia, hypertension, PE/DVT, obstructive sleep apnea utilizing CPAP, chronic obstructive pulmonary disease on home oxygen at 2 L/m per nasal cannula. The patient is a 1 week history of increasing shortness of breath, nausea, vomiting, diarrhea, weakness and was seen at [facility] and tested positive for CoVID and was instructed to go to the emergency room. Chest x-ray reveals mild bilateral pulmonary interstitial infiltrates. He is seen today in consultation on the selective care unit. He is currently sitting up in bed. Awake and alert in no acute distress. He is maintaining good O2 saturations in the mid 90s on 2 L/m per nasal cannula. He is afebrile. Hemodynamically stable. White count 4.7. Hemoglobin 12.9. Platelet count 116. Lymphocytes 0.7. D-dimer 0.18. Sodium 139. Potassium 4.3. Creatinine 1.51. LDH 784. C-reactive protein 88.5. Pro Calcitonin 0.22. He's been initiated on Symbicort, albuterol. Endocrine related with Xarelto. On dexamethasone, multivitamin. The patient is seen today 10/11/2020 in follow-up on the selective care unit. He is currently sitting up in bed. Awake and alert in no acute distress. He is requiring 3 L nasal cannula to maintain O2 saturations 88% and higher. He is normally on 2 L at home. He denies any worsening shortness of breath. He continues with a loose nonproductive cough. He is maintained on dexamethasone, vitamin supplements. Anticoagulated with Xarelto. Objective - Vital Signs Vital signs: Vital Signs Temp 97.8 F 10/11/20 08:00 Pulse 80 10/11/20 12:00 Resp 18 10/11/20 13:45 BP 138/55 10/11/20 12:00 Pulse Ox 95 10/11/20 12:00 Intake & Output 10/10/20 10/11/20 10/11/20 18:59 06:59 18:59 Intake Total 236 476 Output Total 625 200 150 Balance -389 -200 326 Weight 147.5 kg Intake: Oral 236 476 Output: Urine 625 200 150 Other: Voiding Method Bedside Commode Bedside Commode Urinal Urinal - Exam GENERAL EXAM: Alert, pleasant 70-year-old gentleman, on 3 L nasal cannula, comfortable in no apparent distress. HEAD: Normocephalic. EYES: Normal reaction of pupils, equal size. NOSE: Clear with pink turbinates. THROAT: No erythema or exudates. NECK: No masses, no JVD. CHEST: No chest wall deformity. LUNGS: Equal air entry with few scattered rhonchi, crackles in the bases. CVS: S1 and S2 normal with no audible murmur, regular rhythm. ABDOMEN: No hepatosplenomegaly, normal bowel sounds, no guarding or rigidity. SPINE: No scoliosis or deformity SKIN: No rashes CENTRAL NERVOUS SYSTEM: No focal deficits, tone is normal in all 4 extremities. EXTREMITIES: There is no peripheral edema. No clubbing, no cyanosis. Peripheral pulses are intact. - Labs CBC & Chem 7: 10/10/20 08:45 10/10/20 08:45 Assessment and Plan Assessment: 1 Acute on chronic hypoxic respiratory failure secondary to acute CoVID 19 pneumonia 2 Elevated inflammatory markers secondary to above 3 Acute on chronic renal failure 4 Chronic hypoxic respiratory failure secondary to chronic obstructive pulmonary disease on home O2 at 2 L/m 5 Former smoker 6 History of coronary disease 7 Hyperlipidemia 8 Hypertension 9 History of PE/DVT anticoagulate with Xarelto 10 History of depression 11 Obstructive sleep apnea utilizing CPAP 12 History of peripheral vascular disease 13 BPH Plan: The patient was seen and evaluated by Dr. Ramos Currently stable from the pulmonary standpoint Continue the current treatment plan Repeat chest x-ray, inflammatory markers in the a.m. We will continue to follow I, the cosigning physician, performed a history & physical examination of the patient. Lungs sounds with few scattered rhonchi, crackles in the bilateral posterior bases. Maintaining good O2 saturations in the 90s on 3 L/m per nasal cannula. I discussed the assessment and plan of care with my nurse practitioner, Kandis Pepe. I attest to the above note as dictated by her.
--- NOTE | 2020-10-11 14:10 | P.PN ---
Subjective Progress Note Date: 10/11/20 This is a 70 years old male patient of Dr. Polo with past medical history of pulmonary embolism diagnosed in [place] 2 years ago, history of lower extremity DVT, coronary artery disease no stent, history of heart failure unknown if systolic or diastolic, COPD, hyperlipidemia, hypertension, osteoarthritis, prostate cancer, skin disorder,'s obstructive sleep apnea on CPAP, subclavian steal syndrome with stent placement, history of recent penile implant on 07/27/2016. Patient has chronic shortness of breath that has been going on for the past 2 years since the diagnosis of pulmonary embolism with O2 requirements at 2 L nasal cannula Patient is currently on maintenance dose of xarelto at 10 mg daily. he presents emergency room secondary to worsening dyspnea, x 7 days without any medical intervention prior to this, He was seen in the Emergency room for the shortness of breath, worsening dyspnea and exertion, and was found to be SARS cov 2 positive. Chest x-ray, shows bilateral pulmonary interstitial infiltrates compared to old exam, with a similar atelectasis. Poor inspiration, no hilar masses laboratory shows hemoglobin of 12.9, WBC count of 7, creatinine of 1.47, iron of 1.2, glucose 120 CRP 88, pro-calcitonin slightly elevated 0.22. Patient denies any chronic prednisone exposure, Consult were made with pulmonary, Dr. Ramos, pulse oximetry would be 9 PT 1697 at 2-3 L nasal cannula, blood pressure of 129/66. 10/11: Patient was seen for follow-up today, he is a little bit tachypnea, very small amount of labored breathing only on exertion, no conversational dyspnea, O2 at 2 L, sats 95%, no clearance from pulmonary medicine are stable were rounding today, no cough, no pleurisy, no chest pain no palpitations, creatinine at 1.5 today, electrolytes are normal, wbc of 4.7, LDH of 784, ferritin 533 patient is on IV dexamethasone maintained on Xarelto, no new treatment from pulmonary critical care today, currently stable Review of Systems Constitutional: Reports as per HPI, Reports anorexia, Denies chills, Denies chronic headaches, Denies chronic pain, Denies daytime sleepiness, Denies fatigue, Denies fever, Denies lethargy, Denies malaise, Denies night sweats, Denies poor appetite, Denies sweats, Denies weakness, Denies weight gain, Denies weight loss Ears, nose, mouth and throat: Reports as per HPI, Denies ant. neck pain, Denies bleeding gums, Denies dental pain, Denies dysphagia, Denies epistaxis, Denies headache, Denies hoarseness, Denies mouth pain, Denies nasal congestion, Denies nasal discharge, Denies neck fullness/pressure, Denies neck lump, Denies nose pain, Denies odynophagia, Denies post-nasal drip, Denies sinus pain, Denies sinus pressure, Denies swelling in mouth, Denies swelling in throat, Denies sore throat, Denies vertigo, Denies voice changes Cardiovascular: Reports as per HPI, Denies chest pain, Denies claudication, Denies decreased exercise tolerance, Denies dyspnea on exertion, Denies edema, Denies high blood pressure, Denies irregular heart beat, Denies leg edema, Denies lightheadedness, Denies orthopnea, Denies palpitations, Denies paroxysmal nocturnal dyspnea, Denies phlebitis, Denies rapid heart beat, Denies shortness of breath, Denies syncope Respiratory: Reports as per HPI, Reports cough, Reports dyspnea, Reports home oxygen Gastrointestinal: Reports as per HPI, Denies abdominal pain, Denies belching, Denies bloating, Denies BRBPR, Denies change in bowel habits, Denies coffee ground emesis, Denies constipation, Denies diarrhea, Denies dyspepsia, Denies ea rly satiety, Denies excessive gas, Denies heartburn, Denies hematemesis, Denies hematochezia, Denies indigestion, Denies jaundice, Denies lactose intolerance, Denies loss of appetite, Denies melena, Denies nausea, Denies vomiting Genitourinary: Reports as per HPI, Denies decreased libido, Denies difficulties fathering child, Denies discharge, Denies dysuria, Denies erectile dysfunction, Denies flank pain, Denies genital pain, Denies genital sores, Denies hematuria, Denies impotence, Denies incontinence, Denies kidney stones, Denies nocturia, Denies polyuria, Denies testicular lump, Denies testicular pain, Denies urinary frequency, Denies urinary hesitancy, Denies urinary retention Musculoskeletal: Reports as per HPI, Denies arm numbness/tingling, Denies atrophy, Denies fractures, Denies frequent falls, Denies gait dysfunction, Denies hot joints, Denies leg numbness/tingling, Denies limitation of motion, Denies loss of height, Denies low back pain, Denies morning stiffness, Denies muscle cramps, Denies muscle weakness, Denies myalgias, Denies neck pain, Denies neck stiffness, Denies prior amputations, Denies redness of joints, Denies shooting arm pain, Denies shooting leg pain Integumentary: Reports as per HPI Neurological: Reports as per HPI, Denies aphasia, Denies ataxia, Denies balance difficulties, Denies burning pain, Denies change in mentation, Denies change in smell/taste, Denies change in speech, Denies confusion, Denies convulsions, Denies double vision, Denies gait dysfunction, Denies head injury, Denies headaches, Denies hearing difficulties, Denies lack of coordination, Denies loss of vision, Denies memory loss, Denies migraines, Denies motor disturbance, Denie s numbness, Denies paralysis, Denies paresthesias, Denies seizures, Denies sensory deficit, Denies spasticity, Denies syncope, Denies tic, Denies tingling, Denies transient paralysis, Denies tremors, Denies vertigo, Denies weakness, Denies visual changes Psychiatric: Reports as per HPI Endocrine: Reports as per HPI, Denies cold intolerance, Denies deepening of the voice, Denies excessive sweating, Denies excessive thirst, Denies fatigue, Denies flushing, Denies heat intolerance, Denies high blood sugars, Denies increase in ring/shoe/hat size, Denies low blood sugars, Denies nocturia, Denies palpitations, Denies polydipsia, Denies polyphagia, Denies polyuria, Denies proptosis, Denies recent glucocorticoid use, Denies thyroid mass, Denies weight change Hematologic/Lymphatic: Reports as per HPI, Denies easy bleeding, Denies easy bruising, Denies lymphadenopathy, Denies lymphedema, Denies thrombophilia Allergic/Immunologic: Reports as per HPI, Denies allergic rhinitis, Denies anaphylaxis, Denies angioedema, Denies gluten intolerance, Denies persistent infections, Denies seasonal allergies, Denies urticaria, Denies wheezing Objective - Vital Signs Vital signs: Vital Signs Temp 97.8 F 10/11/20 08:00 Pulse 80 10/11/20 12:00 Resp 18 10/11/20 13:45 BP 138/55 10/11/20 12:00 Pulse Ox 95 10/11/20 12:00 Intake & Output 10/10/20 10/11/20 10/11/20 18:59 06:59 18:59 Intake Total 236 476 Output Total 625 200 150 Balance -389 -200 326 Weight 147.5 kg Intake: Oral 236 476 Output: Urine 625 200 150 Other: Voiding Method Bedside Commode Bedside Commode Urinal Urinal - Constitutional General appearance: Present: cooperative, no acute distress - EENT Eyes: Present: EOMI, PERRLA, normal appearance ENT: Present: NA/AT, normal oropharynx - Respiratory Respiratory: bilateral: CTA, negative: diminished, dullness, rales, rhonchi - Cardiovascular Rhythm: regular Heart sounds: normal: S1, S2 Abnormal Heart Sounds: Absent: systolic murmur, diastolic murmur, rub, S3 Gallop, S4 Gallop, click, other - Gastrointestinal General gastrointestinal: Present: normal bowel sounds, soft - Integumentary Integumentary: Present: decreased turgor, normal - Neurologic Neurologic: Present: CNII-XII intact - Musculoskeletal Musculoskeletal: Present: gait normal, strength equal bilaterally - Psychiatric Psychiatric: Present: A&O x's 3, appropriate affect, intact judgment & insight - Labs CBC & Chem 7: 10/10/20 08:45 10/10/20 08:45 Assessment and Plan Plan: 1. 1. Acute SARS COV2, infection with chronic hypoxemia, we're going to monitor him for worsening hypoxemia as well as respiratory distress, consult was made with Dr. Ramos, covered markers are minimally elevated, on dexamethasone 6 mg, Zithromax, albuterol 2. Chronic anticoagulation, secondary to history of DVT in the past, long-term anticoagulation using Xarelto, which is maintained 3 History of DVT of the right leg in December 2013, resolved on Lasix 40 mg daily, 4. COPD. Continue albuterol- Atrovent as needed . Continue Symbicort twice daily 5 Hyperlipidemia. Continue Crestor daily. 6 Subclavian steal syndrome status post stent in the right carotid. 7 Benign prostatic hypertrophy. Monitor for urinary retention. Continue Flomax daily 8 History of coronary artery disease with previous myocardial infarction. 9 Obstructive Sleep apnea. Patient to continue his own CPAP machine. 10 Gastroesophageal reflux disease and gastric intestinal prophylaxis. Cont inue Nexium or equivalent. 11. Hypertension. Continue bystolic 10 mg daily . Hold Lasix and Spiriva lactone. 12. Depression. Continue Cymbalta 150 mg twice daily. 13. History of ADHD. Strattera on hold. Lesion on discharge 13. Disposition -patient need 1-2 inpatient nights for evaluation of pulmonary embolism 14 chronic kidney disease stage III, stable 15 history of ischemic cardiomyopathy with prior ejection fraction 40%, Lasix 40 mg daily aspirin 81 mg metoprolol no changes made 15 CODE STATUS full code
[2020-10-11] MEDS: NON FORMULARY DRUG (Rosuvastatin 20 MG Tablet) PO SCH (20:22)
[2020-10-11] MEDS: AZITHROMYCIN 500 MG in SODIUM CHLORIDE 0.9% 250 ML IVPB SCH (20:33)
[2020-10-11] MEDS: MIRTAZAPINE 15 MG TAB PO SCH (20:33)
[2020-10-11 22:20] LABS: ABG Base Excess 2.3 mmol/L; ABG HCO3 26 mmol/L (21-25); ABG Oxygen Saturation 92.7 % (94-97); ABG PCO2 38 mmHg (35-45); ABG PH 7.45 (7.35-7.45); ABG PO2 63 mmHg (83-108); ABG TCO2 28 mmol/L (19-24); Allen Test Performed? Yes
--- NOTE | 2020-10-11 22:29 | XR ---
EXAMINATION TYPE: XR chest 1V portable DATE OF EXAM: 10/11/2020 COMPARISON: 10/09/2020 HISTORY: Short of breath TECHNIQUE: Single view FINDINGS: There is some mild infiltrates and atelectasis at the lung bases. There is coarse interstit ial density in the lungs. There is poor inspiration. There is bilateral shoulder prosthesis. IMPRESSION: Interstitial pulmonary infiltrates and basilar atelectasis. No obvious heart failure. No change compared to recent exam.
--- NOTE | 2020-10-12 03:51 | P.EN ---
A team was called on this patient secondary to worsening hypoxemia . patient is here for acute hypoxic respiratory failure secondary to COVID pneumonitis patient was placed on airvo , and he seems tolerating it and feels comfortable
--- NOTE | 2020-10-12 07:35 | XR ---
EXAMINATION TYPE: XR chest 1V portable DATE OF EXAM: 10/12/2020 HISTORY: Shortness of breath. COMPARISON: 10/11/2020 TECHNIQUE: Single view of the chest is submitted. FINDINGS: Demonstrated are scattered senescent parenchymal change. Patchy perihilar and basilar infiltrates persist and have progressed slightly in the interval. Contin ued follow-up is advised. The heart is stable. Hilar and mediastinal structures are within normal limits. Degenerative changes are seen of the dorsal spine. IMPRESSION: 1. Patchy perihilar and basilar infiltrates persist and have progressed slightly in the interval. Co ntinued follow-up is advised.
[2020-10-12 07:37] LABS: Basophils % (A) 0 %; Eosinophils # (A) 0.1 k/uL (0-0.7); Eosinophils % (A) 1 %; HCT 37.5 % (39.0-53.0); HGB 12.4 gm/dL (13.0-17.5); Lymphocytes # (A) 0.4 k/uL (1.0-4.8); Lymphocytes % (A) 6 %; MCH 31.1 pg (25.0-35.0); MCHC 33.1 g/dL (31.0-37.0); MCV 93.9 fL (80.0-100.0); Mean Platelet Volume 8.4; Monocytes # (A) 0.2 k/uL (0-1.0); Monocytes % (A) 3 %; Neutrophils # (A) 6.1 k/uL (1.3-7.7); Neutrophils % (A) 90 %; Platelet Count 135 k/uL (150-450); RBC 3.99 m/uL (4.30-5.90); RDW 13.7 % (11.5-15.5); WBC 6.8 k/uL (3.8-10.6)
[2020-10-12 07:53] LABS: C Reactive Protein 85.1 mg/L (<10.0)
[2020-10-12] MEDS: ALBUTEROL HFA INHALER INHALATION PRN ×4 (08:08→19:59)
[2020-10-12] MEDS: TIOTROPIUM 2.5 MCG INHALER INHALATION SCH (08:08)
[2020-10-12] MEDS: SYMBICORT 160-4.5 MCG INHALER INHALATION SCH ×2 (08:08→19:59)
[2020-10-12] MEDS ORDERED: REMDESIVIR 200 MG in SODIUM CHLORIDE 0.9% 250 ML IVPB ONE (09:59)
--- NOTE | 2020-10-12 10:03 | P.PN ---
Subjective Progress Note Date: 10/12/20 CoVID 19 pneumonia This is a pleasant 70-year-old gentleman follows with Dr. Polo as his primary care provider. He has a history of coronary artery disease, peripheral vascular disease, congestive heart failure, hyperlipidemia, hypertension, PE/DVT, obstructive sleep apnea utilizing CPAP, chronic obstructive pulmonary disease on home oxygen at 2 L/m per nasal cannula. The patient is a 1 week h istory of increasing shortness of breath, nausea, vomiting, diarrhea, weakness and was seen at [facility] and tested positive for CoVID and was instructed to go to the emergency room. Chest x-ray reveals mild bilateral pulmonary interstitial infiltrates. He is seen today in consultation on the selective care unit. He is currently sitting up in bed. Awake and alert in no acute distress. He is maintaining good O2 saturations in the mid 90s on 2 L/m per nasal cannula. He is afebrile. Hemodynamically stable. White count 4.7. Hemoglobin 12.9. Platelet count 116. Lymphocytes 0.7. D-dimer 0.18. Sodium 139. Potassium 4.3. Creatinine 1.51. LDH 784. C-reactive protein 88.5. Pro Calcitonin 0.22. He's been initiated on Symbicort, albuterol. Endocrine related with Xarelto. On dexamethasone, multivitamin. The patient is seen today 10/11/2020 in follow-up on the selective care unit. He is currently sitting up in bed. Awake and alert in no acute distress. He is requiring 3 L nasal cannula to maintain O2 saturations 88% and higher. He is normally on 2 L at home. He denies any worsening shortness of breath. He continues with a loose nonproductive cough. He is maintained on dexamethasone, vitamin supplements. Anticoagulated with Xarelto. 10/12/2020 the patient is being seen in follow-up in the selective units. The patient has been diagnosed having Covid 19 related pneumonia. The patient is 70 years old and he is known to have coronary artery disease, peripheral vascular disease, congestive heart failure, hyperlipidemia, hypertension, PE/DVT, obstructive sleep apnea utilizing CPAP, chronic obstructive pulmonary disease on home oxygen at 2 L/m per nasal cannula. The patient is currently maintained on dexamethasone, vitamin supplements. Anticoagulated with Xarelto. The patient's pulmonary status overnight decompensated. The patient had the replacement high flow oxygen at 60 L with an FiO2 of 60%. Chest x-ray showed diffuse bilateral pulmonary infiltrates, mostly peripheral, consistent with Covid 19 pneumonia, probably there is some interval worsening. The patient has bilateral shoulder replacement. The blood gases from yesterday showed a pH of 7.45 with a pCO2 of 38 and pO2 of 63. His inflammatory markers from today are elevated. LDH level is up to 1228 and a CRP level is up to 85. Objective - Vital Signs Vital signs: Vital Signs Temp 99.5 F 10/12/20 04:00 Pulse 69 10/12/20 04:00 Resp 40 H 10/12/20 04:00 BP 105/40 10/12/20 04:00 Pulse Ox 95 10/12/20 04:00 Intake & Output 10/11/20 10/12/20 10/12/20 18:59 06:59 18:59 Intake Total 596 1120 180 Output Total 550 500 150 Balance 46 620 30 Weight 135.5 kg Intake: Oral 596 1120 180 Output: Urine 550 500 150 Other: Voiding Method Urinal - Exam GENERAL EXAM: Alert, pleasant 70-year-old gentleman, on 60L nasal cannula, comfortable in no apparent distress. HEAD: Normocephalic. EYES: Normal reaction of pupils, equal size. NOSE: Clear with pink turbinates. THROAT: No erythema or exudates. NECK: No masses, no JVD. CHEST: No chest wall deformity. LUNGS: Equal air entry with few scattered rhonchi, crackles in the bases. CVS: S1 and S2 normal with no audible murmur, regular rhythm. ABDOMEN: No hepatosplenomegaly, normal bowel sounds, no guarding or rigidity. SPINE: No scoliosis or deformity SKIN: No rashes CENTRAL NERVOUS SYSTEM: No focal deficits, tone is normal in all 4 extremities. EXTREMITIES: There is no peripheral edema. No clubbing, no cyanosis. Peripheral pulses are intact. - Labs CBC & Chem 7: 10/12/20 07:15 10/10/20 08:45 Labs: Abnormal Lab Results - Last 24 Hours (Table) 10/11/20 10/12/20 10/12/20 Range/Units 22:10 07:15 07:15 RBC 3.99 L (4.30-5.90) m/uL Hgb 12.4 L (13.0-17.5) gm/dL Hct 37.5 L (39.0-53.0) % Plt Count 135 L (150-450) k/uL Lymphocytes # 0.4 L (1.0-4.8) k/uL ABG pO2 63 L (83-108) mmHg ABG HCO3 26 H (21-25) mmol/L ABG Total CO2 28 H (19-24) mmol/L ABG O2 Saturation 92.7 L (94-97) % Lactate Dehydrogenase 1228 H (313-618) U/L C-Reactive Protein 85.1 H (<10.0) mg/L Assessment and Plan Plan: 1 Acute on chronic hypoxic respiratory failure secondary to acute CoVID 19 pneumonia, currently on 60 L of oxygen by nasal cannula and the patient is currently on Decadron and anticoagulation with Xarelto. The pro-calcitonin level was at 0.22 and the patient was also given empiric antibiotic coverage with Zithromax. The patient's respiratory status rapidly decompensated. The patient is currently on high flow oxygen at 60 L per minute nasal cannula from a baseline of 4 L. Chest x-ray was done and shows no major interval change. The patient was symptomatic approximately a week ago. He presented to us with worsening shortness of breath. Initially was on 4 L and subsequently he went up to high flow oxygen. 2 acute hypoxic respiratory failure secondary to above 3 Acute on chronic renal failure 4 Chronic hypoxic respiratory failure secondary to chronic obstructive pulmonary disease on home O2 at 2 L/m 5 Former smoker 6 History of coronary disease 7 Hyperlipidemia 8 Hypertension 9 History of PE/DVT anticoagulate with Xarelto 10 History of depression 11 Obstructive sleep apnea utilizing CPAP 12 History of peripheral vascular disease 13 BPH Plan: The patient has a rapid deterioration in the respirator status and currently is on 60 L by nasal cannula. We'll put the patient on IV Solu-Medrol 60 mg every 6 hours knowing that his underlying COPD. The patient will also be provided Tocilizumab. D-dimer was drawn the patient is currently on Xarelto Currently stable from the pulmonary standpoint Continue the current treatment plan Repeat chest x-ray, inflammatory markers in the a.m. We will continue to follow
[2020-10-12] MEDS: DEXAMETHASONE SOD PHOSPHATE 10 MG/ML 1 ML VIAL IV SCH (10:04)
[2020-10-12] MEDS: ASPIRIN 81 MG PO SCH (10:05)
[2020-10-12] MEDS: allopurinoL 300 MG TAB PO SCH (10:05)
[2020-10-12] MEDS: NON FORMULARY DRUG (Atomoxetine Hcl [Strattera] 40 MG Capsule) PO SCH (10:06)
[2020-10-12] MEDS: FUROSEMIDE 40 MG TAB PO SCH (10:06)
[2020-10-12] MEDS: NON FORMULARY DRUG (Atomoxetine Hcl [Strattera] 60 MG Capsule) PO SCH (10:06)
[2020-10-12] MEDS: CHOLECALCIFEROL 25 MCG (1000 IU) TABLET PO SCH (10:06)
[2020-10-12] MEDS: MULTIVITAMINS, THERA 1 EACH TAB PO SCH (10:07)
[2020-10-12] MEDS: NEBIVOLOL 5 MG TAB PO SCH (10:07)
[2020-10-12] MEDS: METOPROLOL SUCCINATE (ER) 25 MG TAB.ER.24H PO SCH (10:07)
[2020-10-12] MEDS: LORATADINE 10 MG TAB PO SCH (10:07)
[2020-10-12] MEDS: levETIRAcetam 500 MG TAB PO SCH ×2 (10:07→20:35)
[2020-10-12] MEDS: VENLAFAXINE HCL 75 MG TAB PO SCH ×2 (10:08→20:35)
[2020-10-12] MEDS: PANTOPRAZOLE 40 MG TABLET PO SCH (10:08)
[2020-10-12] MEDS: RIVAROXABAN 20 MG TAB PO SCH (10:08)
--- NOTE | 2020-10-12 11:08 | P.PN ---
Subjective Progress Note Date: 10/12/20 HISTORY OF PRESENT ILLNESS This is a 70 years old male patient of Dr. Polo with past medical history of pulmonary embolism diagnosed in [place] 2 years ago, history of lower extremity DVT, coronary artery disease no stent, history of heart failure unknown if systolic or diastolic, COPD, hyperlipidemia, hypertension, osteoarthritis, prostate cancer, skin disorder,'s obstructive sleep apnea on CPAP, subclavian steal syndrome with stent placement, history of recent penile implant on 07/27/2016. Patient has chronic shortness of breath that has been going on for the past 2 years since the diagnosis of pulmonary embolism with O2 requirements at 2 L nasal cannula Patient is currently on maintenance dose of xarelto at 10 mg daily. He presents emergency room secondary to worsening dyspnea, x 7 days without any medical intervention prior to this, He was seen in the Emergency room for the shortness of breath, worsening dyspnea and exertion, and was found to be SARS cov 2 positive. Chest x-ray, shows bilateral pulmonary interstitial infiltrates compared to old exam, with a similar atelectasis. Poor inspiration, no hilar masses laboratory shows hemoglobin of 12.9, WBC count of 7, creatinine of 1.47, iron of 1.2, glucose 120 CRP 88, pro-calcitonin slightly elevated 0.22. Patient denies any chronic prednisone exposure, Consult were made with pulmonary, Dr. Ramos, pulse oximetry would be 9 PT 1697 at 2-3 L nasal cannula, blood pressure of 129/66. 10/11: Patient was seen for follow-up today, he is a little bit tachypnea, very small amount of labored breathing only on exertion, no conversational dyspnea, O2 at 2 L, sats 95%, no clearance from pulmonary medicine are stable were rounding today, no cough, no pleurisy, no chest pain no palpitations, creatinine at 1.5 today, electrolytes are normal, wbc of 4.7, LDH of 784, ferritin 533 patient is on IV dexamethasone maintained on Xarelto, no new treatment from pulmonary critical care today, currently stable 10/12: A-Team is called during the night due to hypoxia and patient was started on AirVo. Respiratory rate is been in the 40s, heart rate 74, afebrile, pulse ox 96%. Chest x-ray from yesterday revealed patchy. Hilar and basilar infiltrates persist and have progressed slightly in the interval. Repeat blood work reveals WBC 6.8, hemoglobin 12.4, platelet count 135. LDH 1228. C- reactive protein 85.1. The patient has developed increasing difficulty with breathing. He denies having any chest pain. He states he could not sleep through the night. REVIEW OF SYSTEMS Constitutional: No fever, no chills, no night sweats. No weight change. No weakness, fatigue or lethargy. EENT: No headache. No dizziness. No nasal drainage or congestion. No ep istaxis. No sore throat. Lungs: Reports shortness of breath, reports cough, no sputum production. No wheezing. Cardiovascular: No chest pain, no lower extremity edema. No palpitations. No paroxysmal nocturnal dyspnea. No orthopnea. No lightheadedness or dizziness. No syncopal episodes. Abdominal: No abdominal pain. No nausea, vomiting. No diarrhea. No constipation. No bloody or tarry stools.. No loss of appetite. Genitourinary: No dysuria, increased frequency, urgency. No urinary retention. Musculoskeletal: No myalgias. No muscle weakness, no gait dysfunction, no frequent falls. No back pain. No neck pain. Integumentary: No wounds, no lesions. No rash or pruritus. No unusual bruising. No change in hair or nails. Neurologic: No aphasia. No facial droop. No change in mentation. No head injury. No headache. Psychiatric: No depression. No anxiety. No mood swings. Reports insomnia. Endocrine: No abnormal blood sugars. No weight change. PHYSICAL EXAMINATION Gen: This is a 70-year-old male. He is resting in bed and appears to be comfortable. Airflow is on. HEENT: Head is atraumatic, normocephalic. Pupils equal, round. Sclerae is anicteric. NECK: Supple. No JVD. No lymphadenopathy. No thyromegaly. LUNGS: Few scattered rhonchi. No intercostal retractions. HEART: Regular rate and rhythm. No murmur. ABDOMEN: Soft. Bowel sounds are present. No masses. No tenderness. EXTREMITIES: No pedal edema. No calf tenderness. Dorsalis pedis palpable bilaterally. NEUROLOGICAL: Patient is awake, alert and oriented x3. Cranial nerves 2 through 12 are grossly intact. ASSESSMENT AND PLAN 1. Acute SARS COV2, infection with acute hypoxic respiratory failure. Continue airflow, pulmonary consult appreciated. Due to cytokine storm and worsening hypoxia, we're going to monitor him for worsening hypoxemia as well as respiratory distress, has history of appropriate for aggressive treatment. Continue dexamethasone 6 mg daily, Zithromax 500 mg IV piggyback daily, albuterol inhaler as needed. Continue vitamin D. 2. Chronic anticoagulation, secondary to history of DVT in the past, long-term anticoagulation using Xarelto, which is maintained 3. History of DVT of the right leg in December 2013, resolved on Lasix 40 mg daily, 4. COPD. Continue albuterol- Atrovent as needed . Continue Symbicort twice daily 5 Hyperlipidemia. Continue Crestor daily. 6 Subclavian steal syndrome status post stent in the right carotid. 7 Benign prostatic hypertrophy. Monitor for urinary retention. Continue Flomax daily 8 History of coronary artery disease with previous myocardial infarction. 9 Obstructive Sleep apnea. Patient to continue his own CPAP machine. 10 Gastroesophageal reflux disease and gastric intestinal prophylaxis. Continue Nexium or equivalent. 11. Hypertension. Continue bystolic 10 mg daily . Hold Lasix and Spiriva lactone. 12. Depression. Continue Cymbalta 150 mg twice daily. 13. History of ADHD. Strattera on hold. Lesion on discharge 13. Chronic kidney disease stage III, stable 14. History of ischemic cardiomyopathy with prior ejection fraction 40%, Lasix 40 mg daily aspirin 81 mg metoprolol no changes made 15 CODE STATUS full code DISCHARGE PLAN Most likely return home. Impression and plan of care have been directed as dictated by the signing physician. Nena Frausto nurse practitioner acting as scribe for signing physician. Objective - Vital Signs Vital signs: Vital Signs Temp 99.5 F 10/12/20 04:00 Pulse 69 10/12/20 04:00 Resp 40 H 10/12/20 04:00 BP 105/40 10/12/20 04:00 Pulse Ox 95 10/12/20 04:00 Intake & Output 10/11/20 10/12/20 10/12/20 18:59 06:59 18:59 Intake Total 596 1120 180 Output Total 550 500 150 Balance 46 620 30 Weight 135.5 kg Intake: Oral 596 1120 180 Output: Urine 550 500 150 Other: Voiding Method Urinal - Labs CBC & Chem 7: 10/12/20 07:15 10/10/20 08:45 Labs: Abnormal Lab Results - Last 24 Hours (Table) 10/11/20 10/12/20 10/12/20 Range/Units 22:10 07:15 07:15 RBC 3.99 L (4.30-5.90) m/uL Hgb 12.4 L (13.0-17.5) gm/dL Hct 37.5 L (39.0-53.0) % Plt Count 135 L (150-450) k/uL Lymphocytes # 0.4 L (1.0-4.8) k/uL ABG pO2 63 L (83-108) mmHg ABG HCO3 26 H (21-25) mmol/L ABG Total CO2 28 H (19-24) mmol/L ABG O2 Saturation 92.7 L (94-97) % Lactate Dehydrogenase 1228 H (313-618) U/L C-Reactive Protein 85.1 H (<10.0) mg/L
[2020-10-12 11:21] LABS: Ferritin 768.7 ng/mL (22.0-322.0)
[2020-10-12] MEDS ORDERED: TOCILIZUMAB 400 MG in SODIUM CHLORIDE 0.9% 80 ML IV ONE (12:00)
[2020-10-12] MEDS: NON FORMULARY DRUG (Rosuvastatin 20 MG Tablet) PO SCH (19:57)
[2020-10-12] MEDS: MIRTAZAPINE 15 MG TAB PO SCH (20:35)
[2020-10-13] MEDS: SYMBICORT 160-4.5 MCG INHALER INHALATION SCH ×2 (08:09→19:03)
[2020-10-13] MEDS: TIOTROPIUM 2.5 MCG INHALER INHALATION SCH (08:10)
[2020-10-13] MEDS: ALBUTEROL HFA INHALER INHALATION PRN ×4 (08:10→19:03)
[2020-10-13] MEDS: allopurinoL 300 MG TAB PO SCH (09:33)
[2020-10-13] MEDS: ASPIRIN 81 MG PO SCH (09:34)
[2020-10-13] MEDS: NON FORMULARY DRUG (Atomoxetine Hcl [Strattera] 60 MG Capsule) PO SCH (09:34)
[2020-10-13] MEDS: CHOLECALCIFEROL 25 MCG (1000 IU) TABLET PO SCH (09:34)
[2020-10-13] MEDS: NON FORMULARY DRUG (Atomoxetine Hcl [Strattera] 40 MG Capsule) PO SCH (09:34)
[2020-10-13] MEDS: DEXAMETHASONE SOD PHOSPHATE 10 MG/ML 1 ML VIAL IV SCH (09:34)
[2020-10-13] MEDS: METOPROLOL SUCCINATE (ER) 25 MG TAB.ER.24H PO SCH (09:35)
[2020-10-13] MEDS: levETIRAcetam 500 MG TAB PO SCH ×2 (09:35→20:42)
[2020-10-13] MEDS: PANTOPRAZOLE 40 MG TABLET PO SCH (09:35)
[2020-10-13] MEDS: FUROSEMIDE 40 MG TAB PO SCH (09:35)
[2020-10-13] MEDS: LORATADINE 10 MG TAB PO SCH (09:35)
[2020-10-13] MEDS: MULTIVITAMINS, THERA 1 EACH TAB PO SCH (09:35)
[2020-10-13] MEDS: NEBIVOLOL 5 MG TAB PO SCH (09:35)
[2020-10-13] MEDS: VENLAFAXINE HCL 75 MG TAB PO SCH ×2 (09:36→20:42)
[2020-10-13] MEDS: RIVAROXABAN 20 MG TAB PO SCH (09:36)
[2020-10-13] MEDS ORDERED: REMDESIVIR 100 MG in SODIUM CHLORIDE 0.9% 250 ML IVPB SCH (09:59)
[2020-10-13] MEDS ORDERED: TOCILIZUMAB 400 MG in SODIUM CHLORIDE 0.9% 80 ML IV ONE (10:00)
--- NOTE | 2020-10-13 10:53 | P.PN ---
Subjective Progress Note Date: 10/13/20 This is a pleasant 70-year-old gentleman follows with Dr. Polo as his primary care provider. He has a history of coronary artery disease, peripheral vascular disease, congestive heart failure, hyperlipidemia, hypertension, PE/DVT, obstructive sleep apnea utilizing CPAP, chronic obstructive pulmonary disease on home oxygen at 2 L/m per nasal cannula. The patient is a 1 week history of increasing shortness of breath, nausea, vomiting, diarrhea, weakness and was seen at [facility] and tested positive for CoVID and was instructed to go to the emergency room. Chest x-ray reveals mild bilateral pulmonary interstitial infiltrates. He is seen today in consultation on the selective care unit. He is currently sitting up in bed. Awake and alert in no acute distress. He is maintaining good O2 saturations in the mid 90s on 2 L/m per nasal cannula. He is afebrile. Hemodynamically stable. White count 4.7. Hemoglobin 12.9. Platelet count 116. Lymphocytes 0.7. D-dimer 0.18. Sodium 139. Potassium 4.3. Creatinine 1.51. LDH 784. C-reactive protein 88.5. Pro Calcitonin 0.22. He's been initiated on Symbicort, albuterol. Endocrine related with Xarelto. On dexamethasone, multivitamin. The patient is seen today 10/11/2020 in follow-up on the selective care unit. He is currently sitting up in bed. Awake and alert in no acute distress. He is requiring 3 L nasal cannula to maintain O2 saturations 88% and higher. He is normally on 2 L at home. He denies any worsening shortness of breath. He continues with a loose nonproductive cough. He is maintained on dexamethasone, vitamin supplements. Anticoagulated with Xarelto. 10/12/2020 the patient is being seen in follow-up in the selective units. The patient has been diagnosed having Covid 19 related pneumonia. The patient is 70 years old and he is known to have coronary artery disease, peripheral vascular disease, congestive heart failure, hyperlipidemia, hypertension, PE/DVT, obstructive sleep apnea utilizing CPAP, chronic obstructive pulmonary disease on home oxygen at 2 L/m per nasal cannula. The patient is currently maintained on dexamethasone, vitamin supplements. Anticoagulated with Xarelto. The pat ient's pulmonary status overnight decompensated. The patient had the replacement high flow oxygen at 60 L with an FiO2 of 60%. Chest x-ray showed diffuse bilateral pulmonary infiltrates, mostly peripheral, consistent with Covid 19 pneumonia, probably there is some interval worsening. The patient has bilateral shoulder replacement. The blood gases from yesterday showed a pH of 7.45 with a pCO2 of 38 and pO2 of 63. His inflammatory markers from today are elevated. LDH level is up to 1228 and a CRP level is up to 85. Need 2020, the patient is still on high flow oxygen at 60 L with an FiO2 of 55%. Based on the significant drop in oxygenation, which The patient on steroids and the patient is currently on Decadron and we added Toci 400 mg and the patient received only 1 dose. He is going to receive his second dose of 400 mg today. Patient's oxygenation is stable. D-dimer is down at 0.33. His LDH level is at 1228 and the CRP is at 85. The chest x-ray from yesterday showed bilateral patchy pulmonary infiltrates. The patient has approximately 2 fibrillation and is maintained on Xarelto. The patient also is known to have coronary artery disease, peripheral vascular disease, congestive heart failure, hyperlipidemia, hypertension, PE/DVT, obstructive sleep apnea utilizing CPAP, chronic obstructive pulmonary disease on home oxygen at 2 L/m per nasal cannula. Objective - Vital Signs Vital signs: Vital Signs Temp 98.8 F 10/13/20 08:00 Pulse 69 10/13/20 08:00 Resp 36 H 10/13/20 08:00 BP 131/63 10/13/20 08:00 Pulse Ox 90 L 10/13/20 08:00 Intake & Output 10/12/20 10/13/20 10/13/20 18:59 06:59 18:59 Intake Total 760 660 Output Total 900 550 425 Balance -140 110 -425 Weight 151 kg Intake: Intake, IV Titration 80 Amount Tocilizumab 400 mg In 80 Sodium Chloride 0.9% 80 ml @ 100 mls/hr IV ONCE ONE Rx#:[id number] Oral 680 660 Output: Urine 900 550 425 Other: Voiding Method Urinal Urinal Urinal - Exam GENERAL EXAM: Alert, pleasant 70-year-old gentleman, on 60L nasal cannula, comfortable in no apparent distress. HEAD: Normocephalic. EYES: Normal reaction of pupils, equal size. NOSE: Clear with pink turbinates. THROAT: No erythema or exudates. NECK: No masses, no JVD. CHEST: No chest wall deformity. LUNGS: Equal air entry with few scattered rhonchi, crackles in the bases. CVS: S1 and S2 normal with no audible murmur, regular rhythm. ABDOMEN: No hepatosplenomegaly, normal bowel sounds, no guarding or rigidity. SPINE: No scoliosis or deformity SKIN: No rashes CENTRAL NERVOUS SYSTEM: No focal deficits, tone is normal in all 4 extremities. EXTREMITIES: There is no peripheral edema. No clubbing, no cyanosis. Peripheral pulses are intact. - Labs CBC & Chem 7: 10/12/20 07:15 10/10/20 08:45 Labs: Abnormal Lab Results - Last 24 Hours (Table) 10/12/20 Range/Units 07:15 Ferritin 768.7 H (22.0-322.0) ng/mL Assessment and Plan Plan: 1 Acute on chronic hypoxic respiratory failure secondary to acute CoVID 19 pneumonia, currently on 60 L of oxygen by nasal cannula and the patient is currently on Decadron and anticoagulation with Xarelto. The pro-calcitonin level was at 0.22 and the patient was also given empiric antibiotic coverage with Zithromax. The patient's respiratory status rapidly decompensated. The patient is currently on high flow oxygen at 60 L per minute nasal cannula and the patient is currently on Decadron and he received her first dose of the Toci 100 and the second dose is to follow today. The inflammatory markers are being monitored. Chest x-ray still repeated tomorrow. Currently on 60 L of oxygen by nasal cannula. 2 acute hypoxic respiratory failure secondary to above 3 Acute on chronic renal failure 4 Chronic hypoxic respiratory failure secondary to chronic obstructive pulmonary disease on home O2 at 2 L/m 5 Former smoker 6 History of coronary disease 7 Hyperlipidemia 8 Hypertension 9 History of PE/DVT anticoagulate with Xarelto 10 History of depression 11 Obstructive sleep apnea utilizing CPAP 12 History of peripheral vascular disease 13 BPH Plan: The patient has a rapid deterioration in the respirator status and currently is on 60 L by nasal cannula. We'll put the patient on IV Decadron 6 mg hours knowing that his underlying COPD. The patient will also be provided Tocilizumab x2 . D-dimer was drawn the patient is currently on Xarelto Oxygenation is borderline and the respiratory status is borderline but stable since yesterday. Continue the current treatment plan Repeat chest x-ray, inflammatory markers in the a.m. We will continue to follow
--- NOTE | 2020-10-13 11:22 | P.PN ---
Subjective Progress Note Date: 10/13/20 HISTORY OF PRESENT ILLNESS This is a 70 years old male patient of Dr. Polo with past medical history of pulmonary embolism diagnosed in [place] 2 years ago, history of lower extremity DVT, coronary artery disease no stent, history of heart failure unknown if systolic or diastolic, COPD, hyperlipidemia, hypertension, osteoarthritis, prostate cancer, skin disorder,'s obstructive sleep apnea on CPAP, subclavian steal syndrome with stent placement, history of recent penile implant on 07/27/2016. Patient has chronic shortness of breath that has been going on for the past 2 years since the diagnosis of pulmonary embolism with O2 requirements at 2 L nasal cannula Patient is currently on maintenance dose of xarelto at 10 mg daily. He presents emergency room secondary to worsening dyspnea, x 7 days without any medical intervention prior to this, He was seen in the Emergency room for the shortness of breath, worsening dyspnea and exertion, and was found to be SARS cov 2 positive. Chest x-ray, shows bilateral pulmonary interstitial infiltrates compared to old exam, with a similar atelectasis. Poor inspiration, no hilar masses laboratory shows hemoglobin of 12.9, WBC count of 7, creatinine of 1.47, iron of 1.2, glucose 120 CRP 88, pro-calcitonin slightly elevated 0.22. Patient denies any chronic prednisone exposure, Consult were made with pulmonary, Dr. Ramos, pulse oximetry would be 9 PT 1697 at 2-3 L nasal cannula, blood pressure of 129/66. 10/11: Patient was seen for follow-up today, he is a little bit tachypnea, very small amount of labored breathing only on exertion, no conversational dyspnea, O2 at 2 L, sats 95%, no clearance from pulmonary medicine are stable were rounding today, no cough, no pleurisy, no chest pain no palpitations, creatinine at 1.5 today, electrolytes are normal, wbc of 4.7, LDH of 784, ferritin 533 patient is on IV dexamethasone maintained on Xarelto, no new treatment from pulmonary critical care today, currently stable 10/12: A-Team is called during the night due to hypoxia and patient was started on AirVo. Respiratory rate is been in the 40s, heart rate 74, afebrile, pulse ox 96%. Chest x-ray from yesterday revealed patchy. Hilar and basilar infiltrates persist and have progressed slightly in the interval. Repeat blood work reveals WBC 6.8, hemoglobin 12.4, platelet count 135. LDH 1228. C- reactive protein 85.1. The patient has developed increasing difficulty with breathing. He denies having any chest pain. He states he could not sleep through the night. 10/13: Patient states that his breathing status is about the same as yesterday or little bit more difficult. He denies any coughing up blood. He denies any abdominal pain, nausea or vomiting, no diarrhea. Patient remains on Arava with pulse ox of 88-90%. Afebrile, heart rate 69, respiratory rate 40, blood pressure 137/76. Patient is status post 2 doses of Tocilizumab. patient is followed closely by pulmonary medicine. REVIEW OF SYSTEMS Constitutional: No fever, no chills, no night sweats. No weight change. No weakness, fatigue or lethargy. EENT: No headache. No dizziness. No nasal drainage or congestion. No epistaxis. No sore throat. Lungs: Reports shortness of breath, reports cough, no sputum production. No wheezing. reports dyspnea with exertion. Cardiovascular: No chest pain, no lower extremity edema. No palpitations. No paroxysmal nocturnal dyspnea. No orthopnea. No lightheadedness or dizziness. No syncopal episodes. Abdominal: No abdominal pain. No nausea, vomiting. No diarrhea. No constipation. No bloody or tarry stools.. No loss of appetite. Genitourinary: No dysuria, increased frequency, urgency. No urinary retention. Musculoskeletal: No myalgias. No muscle weakness, no gait dysfunction, no frequent falls. No back pain. No neck pain. Integumentary: No wounds, no lesions. No rash or pruritus. No unusual bruising. No change in hair or nails. Neurologic: No aphasia. No facial droop. No change in mentation. No head injury. No headache. Psychiatric: No depression. No anxiety. No mood swings. Reports insomnia. Endocrine: No abnormal blood sugars. No weight change. PHYSICAL EXAMINATION Gen: This is a 70-year-old male. He is resting in bed and appears to be comfortable at rest. Airflow is on. HEENT: Head is atraumatic, normocephalic. Pupils equal, round. Sclerae is anicteric. NECK: Supple. No JVD. No lymphadenopathy. No thyromegaly. LUNGS: Few scattered rhonchi. No intercostal retractions. HEART: Regular rate and rhythm. No murmur. ABDOMEN: Soft. Bowel sounds are present. No masses. No tenderness. EXTREMITIES: No pedal edema. No calf tenderness. Dorsalis pedis palpable bilaterally. NEUROLOGICAL: Patient is awake, alert and oriented x3. Cranial nerves 2 through 12 are grossly intact. ASSESSMENT AND PLAN 1. Acute SARS COV2, infection with acute hypoxic respiratory failure. Continue airflow, pulmonary consult appreciated. Due to cytokine storm and worsening hypoxia, we're going to monitor him for worsening hypoxemia as well as respiratory distress, has history of appropriate for aggressive treatment. Continue dexamethasone 6 mg daily, Zithromax 500 mg IV piggyback daily, albuterol inhaler as needed. Continue vitamin D. Patient is status post 2 doses of Tocilizumab 2. Chronic anticoagulation, secondary to history of DVT in the past, long-term anticoagulation using Xarelto, which is maintained 3. History of DVT of the right leg in December 2013, resolved on Lasix 40 mg daily, 4. COPD. Continue albuterol- Atrovent as needed . Continue Symbicort twice daily 5 Hyperlipidemia. Continue Crestor daily. 6 Subclavian steal syndrome status post stent in the right carotid. 7 Benign prostatic hypertrophy. Monitor for urinary retention. Continue Flomax daily 8 History of coronary artery disease with previous myocardial infarction. 9 Obstructive Sleep apnea. Patient to continue his own CPAP machine. 10 Gastroesophageal reflux disease and gastric intestinal prophylaxis. Continue Nexium or equivalent. 11. Hypertension. Continue bystolic 10 mg daily . Hold Lasix and Spiriva lactone. 12. Depression. Continue Cymbalta 150 mg twice daily. 13. History of ADHD. Strattera on hold. Lesion on discharge 13. Chronic kidney disease stage III, stable 14. History of ischemic cardiomyopathy with prior ejection fraction 40%, Lasix 40 mg daily aspirin 81 mg metoprolol no changes made 15 CODE STATUS full code DISCHARGE PLAN Most likely return home. Impression and plan of care have been directed as dictated by the signing physician. Nena Frausto nurse practitioner acting as scribe for signing physician. Objective - Vital Signs Vital signs: Vital Signs Temp 98.8 F 10/13/20 08:00 Pulse 69 10/13/20 08:00 Resp 36 H 10/13/20 08:00 BP 131/63 10/13/20 08:00 Pulse Ox 90 L 10/13/20 08:00 Intake & Output 10/12/20 10/13/20 10/13/20 18:59 06:59 18:59 Intake Total 760 660 Output Total 900 550 425 Balance -140 110 -425 Weight 151 kg Intake: Intake, IV Titration 80 Amount Tocilizumab 400 mg In 80 Sodium Chloride 0.9% 80 ml @ 100 mls/hr IV ONCE ONE Rx#:[id number] Oral 680 660 Output: Urine 900 550 425 Other: Voiding Method Urinal Urinal Urinal - Labs CBC & Chem 7: 10/12/20 07:15 10/10/20 08:45 Labs: Abnormal Lab Results - Last 24 Hours (Table) 10/12/20 Range/Units 07:15 Ferritin 768.7 H (22.0-322.0) ng/mL
[2020-10-13 11:35] LABS: Calcium 8.1 mg/dL (8.4-10.2); Potassium 3.8 mmol/L (3.5-5.1); Total Bilirubin 0.5 mg/dL (0.2-1.3); Total Protein 5.8 g/dL (6.3-8.2)
[2020-10-13] MEDS: MIRTAZAPINE 15 MG TAB PO SCH (20:42)
[2020-10-13] MEDS: NON FORMULARY DRUG (Rosuvastatin 20 MG Tablet) PO SCH (20:42)
[2020-10-14] MEDS: NON FORMULARY DRUG (Atomoxetine Hcl [Strattera] 60 MG Capsule) PO SCH (09:33)
[2020-10-14] MEDS: NON FORMULARY DRUG (Atomoxetine Hcl [Strattera] 40 MG Capsule) PO SCH (09:33)
[2020-10-14] MEDS: SYMBICORT 160-4.5 MCG INHALER INHALATION SCH ×2 (09:43→19:29)
[2020-10-14] MEDS: ALBUTEROL HFA INHALER INHALATION PRN ×4 (09:43→19:29)
[2020-10-14] MEDS: TIOTROPIUM 2.5 MCG INHALER INHALATION SCH (09:43)
[2020-10-14] MEDS: DEXAMETHASONE SOD PHOSPHATE 10 MG/ML 1 ML VIAL IV SCH (09:45)
[2020-10-14] MEDS: ASPIRIN 81 MG PO SCH (09:46)
[2020-10-14] MEDS: levETIRAcetam 500 MG TAB PO SCH ×2 (09:46→21:30)
[2020-10-14] MEDS: METOPROLOL SUCCINATE (ER) 25 MG TAB.ER.24H PO SCH (09:46)
[2020-10-14] MEDS: allopurinoL 300 MG TAB PO SCH (09:46)
[2020-10-14] MEDS: FUROSEMIDE 40 MG TAB PO SCH (09:46)
[2020-10-14] MEDS: CHOLECALCIFEROL 25 MCG (1000 IU) TABLET PO SCH (09:46)
[2020-10-14] MEDS: LORATADINE 10 MG TAB PO SCH (09:46)
[2020-10-14] MEDS: RIVAROXABAN 20 MG TAB PO SCH (09:47)
[2020-10-14] MEDS: NEBIVOLOL 5 MG TAB PO SCH (09:47)
[2020-10-14] MEDS: MULTIVITAMINS, THERA 1 EACH TAB PO SCH (09:47)
[2020-10-14] MEDS: PANTOPRAZOLE 40 MG TABLET PO SCH (09:47)
[2020-10-14] MEDS: VENLAFAXINE HCL 75 MG TAB PO SCH ×2 (09:48→21:42)
--- NOTE | 2020-10-14 10:15 | P.PN ---
Subjective Progress Note Date: 10/14/20 This is a pleasant 70-year-old gentleman follows with Dr. Polo as his primary care provider. He has a history of coronary artery disease, peripheral vascular disease, congestive heart failure, hyperlipidemia, hypertension, PE/DVT, obstructive sleep apnea utilizing CPAP, chronic obstructive pulmonary disease on home oxygen at 2 L/m per nasal cannula. The patient is a 1 week history of increasing shortness of breath, nausea, vomiting, diarrhea, weakness and was seen at [facility] and tested positive for CoVID and was instructed to go to the emergency room. Chest x-ray reveals mild bilateral pulmonary interstitial infiltrates. He is seen today in consultation on the selective care unit. He is currently sitting up in bed. Awake and alert in no acute distress. He is maintaining good O2 saturations in the mid 90s on 2 L/m per nasal cannula. He is afebrile. Hemodynamically stable. White count 4.7. Hemoglobin 12.9. Platelet count 116. Lymphocytes 0.7. D-dimer 0.18. Sodium 139. Potassium 4.3. Creatinine 1.51. LDH 784. C-reactive protein 88.5. Pro Calcitonin 0.22. He's been initiated on Symbicort, albuterol. Endocrine related with Xarelto. On dexamethasone, multivitamin. The patient is seen today 10/11/2020 in follow-up on the selective care unit. He is currently sitting up in bed. Awake and alert in no acute distress. He is requiring 3 L nasal cannula to maintain O2 saturations 88% and higher. He is normally on 2 L at home. He denies any worsening shortness of breath. He continues with a loose nonproductive cough. He is maintained on dexamethasone, vitamin supplements. Anticoagulated with Xarelto. 10/12/2020 the patient is being seen in follow-up in the selective units. The patient has been diagnosed having Covid 19 related pneumonia. The patient is 70 years old and he is known to have coronary artery disease, peripheral vascular disease, congestive heart failure, hyperlipidemia, hypertension, PE/DVT, obstructive sleep apnea utilizing CPAP, chronic obstructive pulmonary disease on home oxygen at 2 L/m per nasal cannula. The patient is currently maintained on dexamethasone, vitamin supplements. Anticoagulated with Xarelto. The pat ient's pulmonary status overnight decompensated. The patient had the replacement high flow oxygen at 60 L with an FiO2 of 60%. Chest x-ray showed diffuse bilateral pulmonary infiltrates, mostly peripheral, consistent with Covid 19 pneumonia, probably there is some interval worsening. The patient has bilateral shoulder replacement. The blood gases from yesterday showed a pH of 7.45 with a pCO2 of 38 and pO2 of 63. His inflammatory markers from today are elevated. LDH level is up to 1228 and a CRP level is up to 85. Need 2020, the patient is still on high flow oxygen at 60 L with an FiO2 of 55%. Based on the significant drop in oxygenation, which The patient on steroids and the patient is currently on Decadron and we added Toci 400 mg and the patient received only 1 dose. He is going to receive his second dose of 400 mg today. Patient's oxygenation is stable. D-dimer is down at 0.33. His LDH level is at 1228 and the CRP is at 85. The chest x-ray from yesterday showed bilateral patchy pulmonary infiltrates. The patient has approximately 2 fibrillation and is maintained on Xarelto. The patient also is known to have coronary artery disease, peripheral vascular disease, congestive heart failure, hyperlipidemia, hypertension, PE/DVT, obstructive sleep apnea utilizing CPAP, chronic obstructive pulmonary disease on home oxygen at 2 L/m per nasal cannula. On 10/14/2020, the patient is gradually getting worse. He was desaturating despite being on high flow oxygen at 60 L and an FiO2 of 90% and he is also utilizing 100% nonrebreather facemask. Note that this patient has been treated aggressively. He received Decadron. He also received 2 doses of Tocilizumab. . The patient had a d-dimer of 1.06 and the rest of the inflammatory markers are still pending for now. Meanwhile, his labs are essentially within normal limits and his creatinine is down to 1.2. He remains on Decadron 6 mg IV every 24 hours. He is also on long-term antibiotic ventilation with Xarelto 20 mg by mouth daily. Note that the patient has previous history of DVT and pulmonary embolism. He has obstructive sleep apnea and he has COPD and is maintained on oxygen at 2 L per minute at home for chronic hypoxic respiratory failure. He has hypertension and hyperlipidemia congestion heart failure and peripheral vascular disease in addition to CABG as comorbid conditions. His last chest x- ray was from 09/14/2020 and a repeat chest x-ray will be ordered. His last chest x-ray showed diffuse breath and pulmonary infiltrates, mainly the peripheries consistent with Covid 19 related pneumonia. Objective - Vital Signs Vital signs: Vital Signs Temp 99.4 F 10/14/20 08:00 Pulse 72 10/14/20 08:00 Resp 36 H 10/14/20 08:00 BP 130/70 10/14/20 08:00 Pulse Ox 90 L 10/14/20 08:00 Intake & Output 10/13/20 10/14/20 10/14/20 18:59 06:59 18:59 Intake Total 180 Output Total 1125 800 Balance -1125 -800 180 Weight 178 kg Intake: Oral 180 Output: Urine 1125 800 Other: Voiding Method Urinal # Voids 2 1 # Bowel Movements 0 - Exam GENERAL EXAM: Alert, pleasant 70-year-old gentleman, on 60L nasal cannula, co mfortable in no apparent distress. Vital FiO2 of 90% and he is also using 100% nonrebreather facemask. His current pulse ox is at 90%. HEAD: Normocephalic. EYES: Normal reaction of pupils, equal size. NOSE: Clear with pink turbinates. THROAT: No erythema or exudates. NECK: No masses, no JVD. CHEST: No chest wall deformity. LUNGS: Equal air entry with few scattered rhonchi, crackles in the bases. CVS: S1 and S2 normal with no audible murmur, regular rhythm. ABDOMEN: No hepatosplenomegaly, normal bowel sounds, no guarding or rigidity. SPINE: No scoliosis or deformity SKIN: No rashes CENTRAL NERVOUS SYSTEM: No focal deficits, tone is normal in all 4 extremities. EXTREMITIES: There is no peripheral edema. No clubbing, no cyanosis. Peripheral pulses are intact. - Labs CBC & Chem 7: 10/12/20 07:15 10/13/20 11:00 Labs: Abnormal Lab Results - Last 24 Hours (Table) 10/13/20 10/14/20 Range/Units 11:00 08:49 D-Dimer 1.06 H (<0.60) mg/L FEU BUN 36 H (9-20) mg/dL Glucose 122 H (74-99) mg/dL Calcium 8.1 L (8.4-10.2) mg/dL AST 65 H (17-59) U/L Total Protein 5.8 L (6.3-8.2) g/dL Albumin 3.0 L (3.5-5.0) g/dL Assessment and Plan Plan: 1 Acute on chronic hypoxic respiratory failure secondary to acute CoVID 19 pneumonia, currently on 60 L of oxygen by nasal cannula with an FiO2 of 90% and the patient is currently on Decadron and anticoagulation with Xarelto. The pro- calcitonin level was at 0.22 and the patient was also given empiric antibiotic coverage with Zithromax. The patient's respiratory status continues to decline and decompensated. Currently is requiring a combination of high flow oxygen 60 L along with chronic percent nonrebreather facemask. His shortness of breath and his cough and significantly. Awaiting inflammatory markers from today. A repeat chest x-ray will be done also today. Note that the patient completed Tocilizumab 2 acute hypoxic respiratory failure secondary to above. Note that the patient has chronic hypoxic respiratory failure on 2 L of oxygen by nasal cannula. 3 Acute on chronic renal failure 4 Chronic hypoxic respiratory failure secondary to chronic obstructive pulmonary disease on home O2 at 2 L/m 5 Former smoker 6 History of coronary disease 7 Hyperlipidemia 8 Hypertension 9 History of PE/DVT anticoagulate with Xarelto 10 History of depression 11 Obstructive sleep apnea utilizing CPAP 12 History of peripheral vascular disease 13 BPH Plan: The patient has a rapid deterioration in the respirator status and currently is on 60 L by nasal cannula. He is on an FiO2 of 90% and the patient is also utilizing a kno 100% nonrebreather facemask. I'm going to switch him to IV Solu-Medrol 60 mg every 6 hours. He has already received Tocilizumab x2 . a repeat chest x-ray will be ordered. He is currently on Xarelto and the d- dimer is mildly elevated. Rest of the affirmative markers are still pending for now. Oxygenation is borderline and the respiratory status is borand there is an increased likelihood of further decompensation of respiratory failure requiring intubation mechanical ventilation. We will continue to follow
[2020-10-14 10:17] LABS: Albumin 3.3 g/dL (3.5-5.0); C Reactive Protein 39.5 mg/L (<10.0); Calcium 8.5 mg/dL (8.4-10.2); Potassium 4.3 mmol/L (3.5-5.1); Total Bilirubin 0.7 mg/dL (0.2-1.3); Total Protein 6.1 g/dL (6.3-8.2)
[2020-10-14 10:36] LABS: Basophils % (A) 0 %; Eosinophils % (A) 1 %; HCT 41.4 % (39.0-53.0); HGB 13.6 gm/dL (13.0-17.5); Lymphocytes # (A) 0.5 k/uL (1.0-4.8); Lymphocytes % (A) 8 %; MCH 31.1 pg (25.0-35.0); MCHC 32.9 g/dL (31.0-37.0); MCV 94.6 fL (80.0-100.0); Mean Platelet Volume 8.1; Monocytes # (A) 0.2 k/uL (0-1.0); Monocytes % (A) 3 %; Neutrophils % (A) 88 %; Platelet Count 185 k/uL (150-450); RBC 4.37 m/uL (4.30-5.90); RDW 13.7 % (11.5-15.5); WBC 6.8 k/uL (3.8-10.6)
[2020-10-14 11:20] LABS: Poikilocytosis (M) Present
--- NOTE | 2020-10-14 11:20 | P.PN ---
Subjective Progress Note Date: 10/14/20 HISTORY OF PRESENT ILLNESS This is a 70 years old male patient of Dr. Polo with past medical history of pulmonary embolism diagnosed in [place] 2 years ago, history of lower extremity DVT, coronary artery disease no stent, history of heart failure unknown if systolic or diastolic, COPD, hyperlipidemia, hypertension, osteoarthritis, prostate cancer, skin disorder,'s obstructive sleep apnea on CPAP, subclavian steal syndrome with stent placement, history of recent penile implant on 07/27/2016. Patient has chronic shortness of breath that has been going on for the past 2 years since the diagnosis of pulmonary embolism with O2 requirements at 2 L nasal cannula Patient is currently on maintenance dose of xarelto at 10 mg daily. He presents emergency room secondary to worsening dyspnea, x 7 days without any medical intervention prior to this, He was seen in the Emergency room for the shortness of breath, worsening dyspnea and exertion, and was found to be SARS cov 2 positive. Chest x-ray, shows bilateral pulmonary interstitial infiltrates compared to old exam, with a similar atelectasis. Poor inspiration, no hilar masses laboratory shows hemoglobin of 12.9, WBC count of 7, creatinine of 1.47, iron of 1.2, glucose 120 CRP 88, pro-calcitonin slightly elevated 0.22. Patient denies any chronic prednisone exposure, Consult were made with pulmonary, Dr. Ramos, pulse oximetry would be 9 PT 1697 at 2-3 L nasal cannula, blood pressure of 129/66. 10/11: Patient was seen for follow-up today, he is a little bit tachypnea, very small amount of labored breathing only on exertion, no conversational dyspnea, O2 at 2 L, sats 95%, no clearance from pulmonary medicine are stable were rounding today, no cough, no pleurisy, no chest pain no palpitations, creatinine at 1.5 today, electrolytes are normal, wbc of 4.7, LDH of 784, ferritin 533 patient is on IV dexamethasone maintained on Xarelto, no new treatment from pulmonary critical care today, currently stable 10/12: A-Team is called during the night due to hypoxia and patient was started on AirVo. Respiratory rate is been in the 40s, heart rate 74, afebrile, pulse ox 96%. Chest x-ray from yesterday revealed patchy. Hilar and basilar infiltrates persist and have progressed slightly in the interval. Repeat blood work reveals WBC 6.8, hemoglobin 12.4, platelet count 135. LDH 1228. C- reactive protein 85.1. The patient has developed increasing difficulty with breathing. He denies having any chest pain. He states he could not sleep through the night. 10/13: Patient states that his breathing status is about the same as yesterday or little bit more difficult. He denies any coughing up blood. He denies any abdominal pain, nausea or vomiting, no diarrhea. Patient remains on Arava with pulse ox of 88-90%. Afebrile, heart rate 69, respiratory rate 40, blood pressure 137/76. Patient is status post 2 doses of Tocilizumab. patient is followed closely by pulmonary medicine. 10/14: Patient is currently on AirVo and nonrebreather but states that he is feeling better today and that his breathing is better. He has been afebrile, heart rate 72, respiratory rate 36, blood pressure 130/70, pulse ox 90%. He denies having abdominal pain, nausea vomiting or diarrhea. He remains on Solu- Medrol 60 mg IV every 6 hours. REVIEW OF SYSTEMS Constitutional: No fever, no chills, no night sweats. No weight change. No weakness, fatigue or lethargy. EENT: No headache. No dizziness. No nasal drainage or congestion. No epistaxis. No sore throat. Lungs: Reports shortness of breath, reports cough, no sputum production. No wheezing. reports dyspnea with exertion. Cardiovascular: No chest pain, no lower extremity edema. No palpitations. No paroxysmal nocturnal dyspnea. No orthopnea. No lightheadedness or dizziness. No syncopal episodes. Abdominal: No abdominal pain. No nausea, vomiting. No diarrhea. No constipation. No bloody or tarry stools.. No loss of appetite. Genitourinary: No dysuria, increased frequency, urgency. No urinary retention. Musculoskeletal: No myalgias. No muscle weakness, no gait dysfunction, no frequent falls. No back pain. No neck pain. Integumentary: No wounds, no lesions. No rash or pruritus. No unusual bruising. No change in hair or nails. Neurologic: No aphasia. No facial droop. No change in mentation. No head injury. No headache. Psychiatric: No depression. No anxiety. No mood swings. Reports insomnia. Endocrine: No abnormal blood sugars. No weight change. PHYSICAL EXAMINATION Gen: This is a 70-year-old male. He is resting in bed and appears to be comfortable at rest. Airflow is on. HEENT: Head is atraumatic, normocephalic. Pupils equal, round. Sclerae is anicteric. NECK: Supple. No JVD. No lymphadenopathy. No thyromegaly. LUNGS: Few scattered rhonchi and scattered expiratory wheezing. Mild intercostal retractions. HEART: Regular rate and rhythm. No murmur. ABDOMEN: Soft. Bowel sounds are present. No masses. No tenderness. EXTREMITIES: No pedal edema. No calf tenderness. Dorsalis pedis palpable bilaterally. NEUROLOGICAL: Patient is awake, alert and oriented x3. Cranial nerves 2 through 12 are grossly intact. ASSESSMENT AND PLAN 1. Acute SARS COV2, infection with acute hypoxic respiratory failure. Continue airflow, pulmonary consult appreciated. Due to cytokine storm and worsening hypoxia, we're going to monitor him for worsening hypoxemia as well as respiratory distress, has history of appropriate for aggressive treatment. Continue Solu-Medrol 60 mg every 6 hours, albuterol inhaler as needed. Continue vitamin D. Patient is status post 2 doses of Tocilizumab 2. Chronic anticoagulation, secondary to history of DVT in the past, long-term anticoagulation using Xarelto, which is maintained 3. History of DVT of the right leg in December 2013, resolved on Lasix 40 mg daily, 4. COPD. Continue albuterol- Atrovent as needed . Continue Symbicort twice daily 5 Hyperlipidemia. Continue Crestor daily. 6 Subclavian steal syndrome status post stent in the right carotid. 7 Benign prostatic hypertrophy. Monitor for urinary retention. Continue Flomax daily 8 History of coronary artery disease with previous myocardial infarction. 9 Obstructive Sleep apnea. Patient to continue his own CPAP machine. 10 Gastroesophageal reflux disease and gastric intestinal prophylaxis. Continue Nexium or equivalent. 11. Hypertension. Continue bystolic 10 mg daily . Hold Lasix and Spiriva lactone. 12. Depression. Continue Cymbalta 150 mg twice daily. 13. History of ADHD. Strattera on hold. Lesion on discharge 13. Chronic kidney disease stage III, stable 14. History of ischemic cardiomyopathy with prior ejection fraction 40%, Lasix 40 mg daily aspirin 81 mg metoprolol no changes made 15 CODE STATUS full code DISCHARGE PLAN Most likely return home. Impression and plan of care have been directed as dictated by the signing physician. Nena Frausto nurse practitioner acting as scribe for signing physician. Objective - Vital Signs Vital signs: Vital Signs Temp 99.4 F 10/14/20 08:00 Pulse 72 10/14/20 08:00 Resp 36 H 10/14/20 08:00 BP 130/70 10/14/20 08:00 Pulse Ox 90 L 10/14/20 08:00 Intake & Output 10/13/20 10/14/20 10/14/20 18:59 06:59 18:59 Intake Total 180 Output Total 1125 800 Balance -1125 -800 180 Weight 178 kg Intake: Oral 180 Output: Urine 1125 800 Other: Voiding Method Urinal # Voids 2 1 # Bowel Movements 0 - Labs CBC & Chem 7: 10/14/20 08:49 10/14/20 08:49 Labs: Abnormal Lab Results - Last 24 Hours (Table) 10/13/20 Range/Units 11:00 BUN 36 H (9-20) mg/dL Glucose 122 H (74-99) mg/dL Calcium 8.1 L (8.4-10.2) mg/dL AST 65 H (17-59) U/L Total Protein 5.8 L (6.3-8.2) g/dL Albumin 3.0 L (3.5-5.0) g/dL
--- NOTE | 2020-10-14 11:27 | XR ---
EXAMINATION TYPE: XR chest 1V portable DATE OF EXAM: 10/14/2020 COMPARISON: 10/12/2020 INDICATION: Shortness of breath, Covid TECHNIQUE: Single frontal view of the chest is obtained. FINDINGS: The heart size is normal. The pulmonary vasculature is prominent. Diffuse increased lung markings are scattered bilaterally. IMPRESSION: 1. Scattered filtrates bilateral lung bender can be compatible with atypical pneumonia
[2020-10-14] MEDS: methylPREDNISolone SOD SUCCI 125 MG/2 ML VIAL IV SCH ×2 (11:46→19:18)
[2020-10-14] MEDS: INSULIN ASPART (NovoLOG) 100 UNIT/ML VIAL SQ SCH ×3 (12:18→21:25)
[2020-10-14] MEDS: guaiFENesin 600 MG TABLET.ER PO SCH ×2 (12:20→21:30)
[2020-10-14 12:21] LABS: Glucose,Whole Blood 98 mg/dL (75-99)
[2020-10-14 15:58] LABS: Glucose,Whole Blood 117 mg/dL (75-99)
--- NOTE | 2020-10-14 16:58 | CDI ---
Documentation Clarification Form Date: 10/14/2020 04:37:13 PM From: Lynette Banegas RN, CCDS Admit Date: 10/09/2020 11:00:00 PM Patient Name: Rayo Nicole Visit Number: [id number] Discharge Date: ATTENTION: The Clinical Documentation Specialists (CDI) and [facility] Coding Staff appreciate your assistance in clarifying documentation. Please respond to the clarification below the line at the bottom and electronically sign. The CDI & [facility] Coding staff will review the response and follow-up if needed. Please note: Queries are made part of the Legal Health Record. If you have any questions, please contact the author of this message via ITS. Dr. Kathleen Jaffe CHF is documented in the past medical history. Please render your opinion on the type and acuity of heart failure. History/Risk Factors: Congestive Heart Failure, COPD O2 Dependent 2/L NC, CKD Stage III, Coronary Artery Disease, Right subclavian steel syndrome Clinical Indicators: 70-year-old male present to ED on 10/09 with shortness of breath and found to be COVID positive. He has had increased shortness of breath, nausea, vomiting, diarrhea. He denies any lower extremity swelling. 10/09 VS/Pulse OX: 121/80 117 22 98.9 91 % BNP: 214 Echocardiogram Results: (08/12/17) H/P history of ischemic cardiomyopathy with prior ejection fraction 40 % 10/09 Chest X Ray: new bilateral pulmonary interstitial infiltrate Treatment: Lasix 40 MG PO Daily ASA 81 MG PO Daily Troprol Xl 75 MG PO Daily In your professional opinion, can you please clarify the acuity and type of CHF if known? Chronic Systolic Heart Failure: Chronic Diastolic Heart Failure Unable to Determine Other, please specify (Last Revision: October 2017) Chronic Systolic Heart Failure MTDD
[2020-10-14 21:16] LABS: Glucose,Whole Blood 131 mg/dL (75-99)
[2020-10-14] MEDS: MIRTAZAPINE 15 MG TAB PO SCH (21:30)
[2020-10-14] MEDS: NON FORMULARY DRUG (Rosuvastatin 20 MG Tablet) PO SCH (21:32)
[2020-10-15] MEDS: methylPREDNISolone SOD SUCCI 125 MG/2 ML VIAL IV SCH ×4 (00:14→17:10)
[2020-10-15 05:29] LABS: HCT 42.2 % (39.0-53.0); HGB 13.8 gm/dL (13.0-17.5); MCH 30.7 pg (25.0-35.0); MCHC 32.8 g/dL (31.0-37.0); MCV 93.8 fL (80.0-100.0); Mean Platelet Volume 7.7; Platelet Count 211 k/uL (150-450); RDW 14.3 % (11.5-15.5); WBC 8.2 k/uL (3.8-10.6)
[2020-10-15 05:37] LABS: Albumin 3.5 g/dL (3.5-5.0); Calcium 8.7 mg/dL (8.4-10.2); Potassium 4.1 mmol/L (3.5-5.1); Total Protein 6.4 g/dL (6.3-8.2)
[2020-10-15 06:59] LABS: Glucose,Whole Blood 158 mg/dL (75-99)
[2020-10-15] MEDS: INSULIN ASPART (NovoLOG) 100 UNIT/ML VIAL SQ SCH ×4 (07:01→20:36)
--- NOTE | 2020-10-15 07:15 | XR ---
EXAMINATION TYPE: XR chest 1V portable DATE OF EXAM: 10/15/2020 HISTORY: Shortness of breath. COMPARISON: 10/14/2020 TECHNIQUE: Single view of the chest is submitted. FINDINGS: Demonstrated are scattered senescent parenchymal change. Scattered mixed interstitial and alveolar is bilaterally without significant change. The heart is stable. Hilar and mediastinal structures are within normal limits. Degenerative changes are seen of the dorsal spine. IMPRESSION: 1. Stable chest.
[2020-10-15] MEDS: TIOTROPIUM 2.5 MCG INHALER INHALATION SCH (07:36)
[2020-10-15] MEDS: SYMBICORT 160-4.5 MCG INHALER INHALATION SCH ×2 (07:36→19:48)
[2020-10-15] MEDS: ALBUTEROL HFA INHALER INHALATION PRN ×4 (07:37→19:47)
--- NOTE | 2020-10-15 08:34 | P.PN ---
Subjective Progress Note Date: 10/15/20 This is a pleasant 70-year-old gentleman follows with Dr. Polo as his primary care provider. He has a history of coronary artery disease, peripheral vascular disease, congestive heart failure, hyperlipidemia, hypertension, PE/DVT, obstructive sleep apnea utilizing CPAP, chronic obstructive pulmonary disease on home oxygen at 2 L/m per nasal cannula. The patient is a 1 week history of increasing shortness of breath, nausea, vomiting, diarrhea, weakness and was seen at [facility] and tested positive for CoVID and was instructed to go to the emergency room. Chest x-ray reveals mild bilateral pulmonary interstitial infiltrates. He is seen today in consultation on the selective care unit. He is currently sitting up in bed. Awake and alert in no acute distress. He is maintaining good O2 saturations in the mid 90s on 2 L/m per nasal cannula. He is afebrile. Hemodynamically stable. White count 4.7. Hemoglobin 12.9. Platelet count 116. Lymphocytes 0.7. D-dimer 0.18. Sodium 139. Potassium 4.3. Creatinine 1.51. LDH 784. C-reactive protein 88.5. Pro Calcitonin 0.22. He's been initiated on Symbicort, albuterol. Endocrine related with Xarelto. On dexamethasone, multivitamin. The patient is seen today 10/11/2020 in follow-up on the selective care unit. He is currently sitting up in bed. Awake and alert in no acute distress. He is requiring 3 L nasal cannula to maintain O2 saturations 88% and higher. He is normally on 2 L at home. He denies any worsening shortness of breath. He continues with a loose nonproductive cough. He is maintained on dexamethasone, vitamin supplements. Anticoagulated with Xarelto. 10/12/2020 the patient is being seen in follow-up in the selective units. The patient has been diagnosed having Covid 19 related pneumonia. The patient is 70 years old and he is known to have coronary artery disease, peripheral vascular disease, congestive heart failure, hyperlipidemia, hypertension, PE/DVT, obstructive sleep apnea utilizing CPAP, chronic obstructive pulmonary disease on home oxygen at 2 L/m per nasal cannula. The patient is currently maintained on dexamethasone, vitamin supplements. Anticoagulated with Xarelto. The pat ient's pulmonary status overnight decompensated. The patient had the replacement high flow oxygen at 60 L with an FiO2 of 60%. Chest x-ray showed diffuse bilateral pulmonary infiltrates, mostly peripheral, consistent with Covid 19 pneumonia, probably there is some interval worsening. The patient has bilateral shoulder replacement. The blood gases from yesterday showed a pH of 7.45 with a pCO2 of 38 and pO2 of 63. His inflammatory markers from today are elevated. LDH level is up to 1228 and a CRP level is up to 85. Need 2020, the patient is still on high flow oxygen at 60 L with an FiO2 of 55%. Based on the significant drop in oxygenation, which The patient on steroids and the patient is currently on Decadron and we added Toci 400 mg and the patient received only 1 dose. He is going to receive his second dose of 400 mg today. Patient's oxygenation is stable. D-dimer is down at 0.33. His LDH level is at 1228 and the CRP is at 85. The chest x-ray from yesterday showed bilateral patchy pulmonary infiltrates. The patient has approximately 2 fibrillation and is maintained on Xarelto. The patient also is known to have coronary artery disease, peripheral vascular disease, congestive heart failure, hyperlipidemia, hypertension, PE/DVT, obstructive sleep apnea utilizing CPAP, chronic obstructive pulmonary disease on home oxygen at 2 L/m per nasal cannula. On 10/14/2020, the patient is gradually getting worse. He was desaturating despite being on high flow oxygen at 60 L and an FiO2 of 90% and he is also utilizing 100% nonrebreather facemask. Note that this patient has been treated aggressively. He received Decadron. He also received 2 doses of Tocilizumab. . The patient had a d-dimer of 1.06 and the rest of the inflammatory markers are still pending for now. Meanwhile, his labs are essentially within normal limits and his creatinine is down to 1.2. He remains on Decadron 6 mg IV every 24 hours. He is also on long-term antibiotic ventilation with Xarelto 20 mg by mouth daily. Note that the patient has previous history of DVT and pulmonary embolism. He has obstructive sleep apnea and he has COPD and is maintained on oxygen at 2 L per minute at home for chronic hypoxic respiratory failure. He has hypertension and hyperlipidemia congestion heart failure and peripheral vascular disease in addition to CABG as comorbid conditions. His last chest x- ray was from 09/14/2020 and a repeat chest x-ray will be ordered. His last chest x-ray showed diffuse breath and pulmonary infiltrates, mainly the peripheries consistent with Covid 19 related pneumonia. 10/15/2020, the patient is currently in the intensive care unit. Just like yesterday, he remains on high flow oxygen 6 L with an FiO2 of 90% and the patient is also utilizing 100% nonrebreather facemask. His current pulse ox is around 91%. He is comfortable. Is at the rate is in the low 30s. His chest x- ray from today showing stable bilateral pulmonary infiltrates without any major interval change compared to yesterday. His blood work from today shows no electrolyte abnormalities, creatinine stable at 1.2. His inflammatory markers are still pending. CRP is down to 29, LDH is pending for now. The d-dimer is at 1.85. In terms of therapy, and he is on IV Solu-Medrol 60 mg every 6 hours is also on multivitamins and he remains on long-term anticoagulation with Xarelto. He is lethargic. Oral intake is quite diminished at this point in time. No altered mentation. Is able to follow commands appropriately. He is weak. He is known to have COPD, previous bypass, hypertension and hyperlipidemia and peripheral vascular disease. He is also known to have CHF. He does have a remote history of DVT and pulmonary embolism. He remains in the ICU for now. He got transferred to the ICU yesterday because of ongoing difficulties with shortness of breath and hypoxemia. His echocardiogram from 2018 was essentially within normal limits and he had a normal ejection fraction. Objective - Vital Signs Vital signs: Vital Signs Temp 99 F 10/15/20 04:00 Pulse 71 10/15/20 07:00 Resp 32 H 10/15/20 07:00 BP 135/75 10/15/20 07:00 Pulse Ox 90 L 10/15/20 07:00 Intake & Output 10/14/20 10/15/20 10/15/20 18:59 06:59 18:59 Intake Total 960 Output Total 1350 1230 50 Balance -390 -1230 -50 Weight 120.8 kg 122.2 kg Intake: Oral 960 Output: Urine 1350 1230 50 Other: Voiding Method Urinal Indwelling Catheter # Voids 4 - Exam GENERAL EXAM: Alert, pleasant 70-year-old gentleman, on 60L nasal cannula, comf ortable in no apparent distress. Vital FiO2 of 90% and he is also using 100% nonrebreather facemask. His current pulse ox is at 90%. HEAD: Normocephalic. EYES: Normal reaction of pupils, equal size. NOSE: Clear with pink turbinates. THROAT: No erythema or exudates. NECK: No masses, no JVD. CHEST: No chest wall deformity. LUNGS: Equal air entry with few scattered rhonchi, crackles in the bases. CVS: S1 and S2 normal with no audible murmur, regular rhythm. ABDOMEN: No hepatosplenomegaly, normal bowel sounds, no guarding or rigidity. SPINE: No scoliosis or deformity SKIN: No rashes CENTRAL NERVOUS SYSTEM: No focal deficits, tone is normal in all 4 extremities. EXTREMITIES: There is no peripheral edema. No clubbing, no cyanosis. Peripheral pulses are intact. - Labs CBC & Chem 7: 10/15/20 04:35 10/15/20 04:35 Labs: Abnormal Lab Results - Last 24 Hours (Table) 10/14/20 10/14/20 10/14/20 Range/Units 08:49 08:49 08:49 Lymphocytes # 0.5 L (1.0-4.8) k/uL D-Dimer 1.06 H (<0.60) mg/L FEU BUN 39 H (9-20) mg/dL Creatinine 1.34 H (0.66-1.25) mg/dL Glucose 108 H (74-99) mg/dL POC Glucose (mg/dL) (75-99) mg/dL AST 75 H (17-59) U/L ALT 56 H (4-49) U/L Lactate Dehydrogenase 1797 H (313-618) U/L C-Reactive Protein 39.5 H (<10.0) mg/L Total Protein 6.1 L (6.3-8.2) g/dL Albumin 3.3 L (3.5-5.0) g/dL 10/14/20 10/14/20 10/15/20 Range/Units 15:57 21:14 04:35 Lymphocytes # (1.0-4.8) k/uL D-Dimer (<0.60) mg/L FEU BUN 46 H (9-20) mg/dL Creatinine (0.66-1.25) mg/dL Glucose 152 H (74-99) mg/dL POC Glucose (mg/dL) 117 H 131 H (75-99) mg/dL AST 89 H (17-59) U/L ALT 84 H (4-49) U/L Lactate Dehydrogenase (313-618) U/L C-Reactive Protein 29.0 H (<10.0) mg/L Total Protein (6.3-8.2) g/dL Albumin (3.5-5.0) g/dL 10/15/20 10/15/20 Range/Units 04:35 06:57 Lymphocytes # (1.0-4.8) k/uL D-Dimer 1.85 H (<0.60) mg/L FEU BUN (9-20) mg/dL Creatinine (0.66-1.25) mg/dL Glucose (74-99) mg/dL POC Glucose (mg/dL) 158 H (75-99) mg/dL AST (17-59) U/L ALT (4-49) U/L Lactate Dehydrogenase (313-618) U/L C-Reactive Protein (<10.0) mg/L Total Protein (6.3-8.2) g/dL Albumin (3.5-5.0) g/dL Assessment and Plan Plan: 1 Acute on chronic hypoxic respiratory failure secondary to acute CoVID 19 pneumonia, currently on 60 L of oxygen by nasal cannula with an FiO2 of 90% and he is also on 100% nonrebreather facemask and the patient is currently on Solu-Medrol and anticoagulation with Xarelto. Awaiting inflammatory markers from today are still pending in terms of LDH, CRP has declined. The patient has a stable chest x-ray on today's evaluation with bilateral pulmonary infiltrates.. . Note that the patient completed Tocilizumab 2 doses and this was given to him because of worsening in oxygenation and respiratory failure 2 acute hypoxic respiratory failure secondary to above. Note that the patient has chronic hypoxic respiratory failure on 2 L of oxygen by nasal cannula. 3 Acute on chronic renal failure the creatinine is at 1.2 for now and acute kidney injury is improved. 4 Chronic hypoxic respiratory failure secondary to chronic obstructive pulmonary disease on home O2 at 2 L/m 5 Former smoker 6 History of coronary disease 7 Hyperlipidemia 8 Hypertension 9 History of PE/DVT anticoagulate with Xarelto 10 History of depression 11 Obstructive sleep apnea utilizing CPAP 12 History of peripheral vascular disease 13 BPH Plan: The patient had a rapid deterioration in the respirator status and currently is on 60 L by nasal cannula. He is on an FiO2 of 90% and the patient is also utilizing a kno 100% nonrebreather facemask. Overall condition is stable compared to yesterday I'm going to continue IV Solu-Medrol 60 mg every 6 hours. He has already received Tocilizumab x2 . A repeat chest x-ray from today stable He is currently on Xarelto and the d-dimer is mildly elevated. Lasix 40 mg IV every 24 hours The patient is on no IV fluids for now. Insert PICC line Oxygenation is borderline and the respiratory status is borand there is an increased likelihood of further decompensation of respiratory failure requiring intubation mechanical ventilation. We will continue to follow
[2020-10-15] MEDS: NON FORMULARY DRUG (Atomoxetine Hcl [Strattera] 40 MG Capsule) PO SCH (08:47)
[2020-10-15] MEDS: NON FORMULARY DRUG (Atomoxetine Hcl [Strattera] 60 MG Capsule) PO SCH (08:47)
[2020-10-15] MEDS: levETIRAcetam 500 MG TAB PO SCH ×2 (08:48→20:36)
[2020-10-15] MEDS: FUROSEMIDE 10 MG/ML 4 ML VIAL IV SCH (08:48)
[2020-10-15] MEDS: ASPIRIN 81 MG PO SCH (08:48)
[2020-10-15] MEDS: PANTOPRAZOLE 40 MG TABLET PO SCH (08:49)
[2020-10-15] MEDS: CHOLECALCIFEROL 25 MCG (1000 IU) TABLET PO SCH (08:49)
[2020-10-15] MEDS: guaiFENesin 600 MG TABLET.ER PO SCH ×2 (08:49→20:36)
[2020-10-15] MEDS: VENLAFAXINE HCL 75 MG TAB PO SCH ×2 (08:49→20:36)
[2020-10-15] MEDS: RIVAROXABAN 20 MG TAB PO SCH (08:49)
[2020-10-15] MEDS: MULTIVITAMINS, THERA 1 EACH TAB PO SCH (08:50)
[2020-10-15] MEDS: LORATADINE 10 MG TAB PO SCH (08:50)
[2020-10-15] MEDS: NEBIVOLOL 5 MG TAB PO SCH (09:27)
[2020-10-15] MEDS: allopurinoL 300 MG TAB PO SCH (09:27)
[2020-10-15] MEDS: METOPROLOL SUCCINATE (ER) 25 MG TAB.ER.24H PO SCH (09:27)
[2020-10-15 09:52] LABS: Ferritin 1340.6 ng/mL (22.0-322.0)
[2020-10-15] MEDS ORDERED: LIDOCAINE 1% INJ 10MG/ML (20 ML MDV) SQ ONE (10:05)
--- NOTE | 2020-10-15 10:12 | P.PN ---
Subjective Progress Note Date: 10/15/20 HISTORY OF PRESENT ILLNESS This is a 70 years old male patient of Dr. Polo with past medical history of pulmonary embolism diagnosed in [place] 2 years ago, history of lower extremity DVT, coronary artery disease no stent, history of heart failure unknown if systolic or diastolic, COPD, hyperlipidemia, hypertension, osteoarthritis, prostate cancer, skin disorder,'s obstructive sleep apnea on CPAP, subclavian steal syndrome with stent placement, history of recent penile implant on 07/27/2016. Patient has chronic shortness of breath that has been going on for the past 2 years since the diagnosis of pulmonary embolism with O2 requirements at 2 L nasal cannula Patient is currently on maintenance dose of xarelto at 10 mg daily. He presents emergency room secondary to worsening dyspnea, x 7 days without any medical intervention prior to this, He was seen in the Emergency room for the shortness of breath, worsening dyspnea and exertion, and was found to be SARS cov 2 positive. Chest x-ray, shows bilateral pulmonary interstitial infiltrates compared to old exam, with a similar atelectasis. Poor inspiration, no hilar masses laboratory shows hemoglobin of 12.9, WBC count of 7, creatinine of 1.47, iron of 1.2, glucose 120 CRP 88, pro-calcitonin slightly elevated 0.22. Patient denies any chronic prednisone exposure, Consult were made with pulmonary, Dr. Ramos, pulse oximetry would be 9 PT 1697 at 2-3 L nasal cannula, blood pressure of 129/66. 10/11: Patient was seen for follow-up today, he is a little bit tachypnea, very small amount of labored breathing only on exertion, no conversational dyspnea, O2 at 2 L, sats 95%, no clearance from pulmonary medicine are stable were rounding today, no cough, no pleurisy, no chest pain no palpitations, creatinine at 1.5 today, electrolytes are normal, wbc of 4.7, LDH of 784, ferritin 533 patient is on IV dexamethasone maintained on Xarelto, no new treatment from pulmonary critical care today, currently stable 10/12: A-Team is called during the night due to hypoxia and patient was started on AirVo. Respiratory rate is been in the 40s, heart rate 74, afebrile, pulse ox 96%. Chest x-ray from yesterday revealed patchy. Hilar and basilar infiltrates persist and have progressed slightly in the interval. Repeat blood work reveals WBC 6.8, hemoglobin 12.4, platelet count 135. LDH 1228. C- reactive protein 85.1. The patient has developed increasing difficulty with breathing. He denies having any chest pain. He states he could not sleep through the night. 10/13: Patient states that his breathing status is about the same as yesterday or little bit more difficult. He denies any coughing up blood. He denies any abdominal pain, nausea or vomiting, no diarrhea. Patient remains on Arava with pulse ox of 88-90%. Afebrile, heart rate 69, respiratory rate 40, blood pressure 137/76. Patient is status post 2 doses of Tocilizumab. patient is followed closely by pulmonary medicine. 10/14: Patient is currently on AirVo and nonrebreather but states that he is feeling better today and that his breathing is better. He has been afebrile, heart rate 72, respiratory rate 36, blood pressure 130/70, pulse ox 90%. He denies having abdominal pain, nausea vomiting or diarrhea. He remains on Solu- Medrol 60 mg IV every 6 hours. 10/15: Patient was transferred to the ICU per Dr. Wright. He is currently on AirVo only at time of evaluation and is eating his breakfast. Patient has been maintained on Arava plus nonrebreather. His breathing status appears to be improved from yesterday. His pulse ox is 88%. Afebrile, heart rate 76, respiratory rate 25, blood pressure 131/81. Repeat chest x-ray reveals stable chest. Repeat blood work reveals normal CBC. D-dimer 1.85. C-reactive protein 29. LDH is pending. Ferritin level 1340.6. Patient is scheduled for PICC line insertion today. Lasix 40 mg IV push ordered today by pulmonary medicine. Patient is continued on Solu-Medrol 60 mg every 6 hours. Patient not receiving any antibiotics at this time. REVIEW OF SYSTEMS Constitutional: Denies fever, no chills, no night sweats. No weight change. No weakness, fatigue or lethargy. EENT: No headache. No dizziness. No nasal drainage or congestion. No epistaxis. No sore throat. Lungs: Reports shortness of breath, reports cough, no sputum production. No wheezing. reports dyspnea with exertion. Cardiovascular: No chest pain, no lower extremity edema. No palpitations. No paroxysmal nocturnal dyspnea. No orthopnea. No lightheadedness or dizziness. No syncopal episodes. Abdominal: No abdominal pain. No nausea, vomiting. No diarrhea. No constipation. No bloody or tarry stools.. No loss of appetite. Genitourinary: No dysuria, increased frequency, urgency. No urinary retention. Musculoskeletal: No myalgias. No muscle weakness, no gait dysfunction, no frequent falls. No back pain. No neck pain. Integumentary: No wounds, no lesions. No rash or pruritus. No unusual bruising. No change in hair or nails. Neurologic: No aphasia. No facial droop. No change in mentation. No head injury. No headache. Psychiatric: No depression. No anxiety. No mood swings. Reports insomnia. Endocrine: No abnormal blood sugars. No weight change. PHYSICAL EXAMINATION Gen: This is a 70-year-old male. He is resting in ICU bed and appears to be comfortable at rest. Airflow is on. HEENT: Head is atraumatic, normocephalic. Pupils equal, round. Sclerae is anicteric. NECK: Supple. No JVD. No lymphadenopathy. No thyromegaly. LUNGS: Few scattered rhonchi and scattered expiratory wheezing. Mild int ercostal retractions. HEART: Regular rate and rhythm. No murmur. ABDOMEN: Soft. Bowel sounds are present. No masses. No tenderness. EXTREMITIES: No pedal edema. No calf tenderness. Dorsalis pedis palpable bilaterally. NEUROLOGICAL: Patient is awake, alert and oriented x3. Cranial nerves 2 through 12 are grossly intact. ASSESSMENT AND PLAN 1. Acute SARS COV2, infection with acute hypoxic respiratory failure. Continue airflow, pulmonary consult appreciated. Due to cytokine storm and worsening hypoxia, we're going to monitor him for worsening hypoxemia as well as respiratory distress, has history of appropriate for aggressive treatment. Continue Solu-Medrol 60 mg every 6 hours, albuterol inhaler as needed, Symbicort inhaler twice daily. Continue vitamin D. Patient is status post 2 doses of Tocilizumab 2. Chronic anticoagulation, secondary to history of DVT in the past, long-term anticoagulation using Xarelto, which is maintained 3. History of DVT of the right leg in December 2013, resolved on Lasix 40 mg daily, 4. COPD. Continue albuterol- Atrovent as needed . Continue Symbicort twice daily 5 Hyperlipidemia. Continue Crestor daily. 6 Subclavian steal syndrome status post stent in the right carotid. 7 Benign prostatic hypertrophy. Monitor for urinary retention. Continue Flomax daily 8 History of coronary artery disease with previous myocardial infarction. 9 Obstructive Sleep apnea. Patient to continue his own CPAP machine. 10 Gastroesophageal reflux disease and gastric intestinal prophylaxis. Continue Nexium or equivalent. 11. Hypertension. Continue bystolic 10 mg daily . Hold Lasix and Spiriva lactone. 12. Depression. Continue Cymbalta 150 mg twice daily. 13. History of ADHD. Strattera on hold. Lesion on discharge 13. Chronic kidney disease stage III, stable 14. History of ischemic cardiomyopathy with prior ejection fraction 40%, Lasix 40 mg daily aspirin 81 mg metoprolol no changes made 15 CODE STATUS full code DISCHARGE PLAN Most likely return home. Impression and plan of care have been directed as dictated by the signing physician. Nena Frausto nurse practitioner acting as scribe for signing physician. Objective - Vital Signs Vital signs: Vital Signs Temp 98.3 F 10/15/20 08:00 Pulse 76 10/15/20 09:00 Resp 25 H 10/15/20 09:00 BP 131/81 10/15/20 09:00 Pulse Ox 88 L 10/15/20 09:00 Intake & Output 10/14/20 10/15/20 10/15/20 18:59 06:59 18:59 Intake Total 960 Output Total 1350 1230 50 Balance -390 -1230 -50 Weight 120.8 kg 122.2 kg Intake: Oral 960 Output: Urine 1350 1230 50 Other: Voiding Method Urinal Indwelling Catheter # Voids 4 - Labs CBC & Chem 7: 10/15/20 04:35 10/15/20 04:35 Labs: Abnormal Lab Results - Last 24 Hours (Table) 10/14/20 10/14/20 10/14/20 Range/Units 08:49 08:49 08:49 Lymphocytes # 0.5 L (1.0-4.8) k/uL D-Dimer 1.06 H (<0.60) mg/L FEU BUN 39 H (9-20) mg/dL Creatinine 1.34 H (0.66-1.25) mg/dL Glucose 108 H (74-99) mg/dL POC Glucose (mg/dL) (75-99) mg/dL AST 75 H (17-59) U/L ALT 56 H (4-49) U/L Lactate Dehydrogenase 1797 H (313-618) U/L C-Reactive Protein 39.5 H (<10.0) mg/L Total Protein 6.1 L (6.3-8.2) g/dL Albumin 3.3 L (3.5-5.0) g/dL 10/14/20 10/14/20 10/15/20 Range/Units 15:57 21:14 04:35 Lymphocytes # (1.0-4.8) k/uL D-Dimer (<0.60) mg/L FEU BUN 46 H (9-20) mg/dL Creatinine (0.66-1.25) mg/dL Glucose 152 H (74-99) mg/dL POC Glucose (mg/dL) 117 H 131 H (75-99) mg/dL AST 89 H (17-59) U/L ALT 84 H (4-49) U/L Lactate Dehydrogenase (313-618) U/L C-Reactive Protein 29.0 H (<10.0) mg/L Total Protein (6.3-8.2) g/dL Albumin (3.5-5.0) g/dL 10/15/20 10/15/20 Range/Units 04:35 06:57 Lymphocytes # (1.0-4.8) k/uL D-Dimer 1.85 H (<0.60) mg/L FEU BUN (9-20) mg/dL Creatinine (0.66-1.25) mg/dL Glucose (74-99) mg/dL POC Glucose (mg/dL) 158 H (75-99) mg/dL AST (17-59) U/L ALT (4-49) U/L Lactate Dehydrogenase (313-618) U/L C-Reactive Protein (<10.0) mg/L Total Protein (6.3-8.2) g/dL Albumin (3.5-5.0) g/dL
[2020-10-15 11:33] LABS: Glucose,Whole Blood 165 mg/dL (75-99)
--- NOTE | 2020-10-15 12:13 | XR ---
EXAMINATION TYPE: XR chest 1V confirm line [facility] DATE OF EXAM: 10/15/2020 HISTORY: Shortness of breath. COMPARISON: 10/15/2020 TECHNIQUE: Single view of the chest is submitted. FINDINGS: Demonstrated are scattered senescent parenchymal change. Coarse infiltrates persist throughout both lung bender compatible with Covid 19 pneumonia. Left-sided PICC line is within the left brachiocephalic/subclavian vein and should be advanced. The heart is stable. Hilar and mediastinal structures are within normal limits. Degenerative changes are seen of the dorsal spine. IMPRESSION: 1. Coarse infiltrates persist throughout both lung bender compatible with Covid 19 pneumonia. Left-s ided PICC line is within the left brachiocephalic/subclavian vein and should be advanced.
--- NOTE | 2020-10-15 12:27 | IR ---
PICC LINE PLACEMENT: HISTORY: Infection requiring long-term antibiotic therapy PROCEDURE: Ultrasound guidance of PICC line placement. INVENTORY CHECKER: Dr. Owen. COMPLICATIONS: None ANESTHESIA: 1. 1% Lidocaine locally. FINDINGS/TECHNIQUE: The procedure was explained to the patient. The risks, complications, benefits and alternatives were discussed and any questions were answered. Informed consent was obtained. The patient was placed supine on the fluoroscopic table and prepped and draped in the usual sterile fas ion. Utilizing a 21 gauge needle and sonographic guidance, access in the left basilic vein was achi eved and there is placement of a 0.018 guidewire. The vein is patent. A 5-F. sheath was placed over the guidewire. The guidewire and dilator were removed and a 5-F. Double lumen PICC line was placed through the sheath with the chest x-ray confirming the tip at the level of the SVC. The sheath was r emoved, the catheter was flushed and sutured into position. The patient was stable throughout the pr ocedure and remained stable upon discharge from the Department of Radiology. The vein puncture was patent under ultrasound. A jefferson scale image was obtained to document patency of the vein punctured. All elements of the maximal barrier technique were utilized. IMPRESSION: 1. Successful PICC line placement under ultrasound performed bedside within the ICU.
[2020-10-15 16:53] LABS: Glucose,Whole Blood 175 mg/dL (75-99)
[2020-10-15 20:18] LABS: Glucose,Whole Blood 150 mg/dL (75-99)
[2020-10-15] MEDS: MIRTAZAPINE 15 MG TAB PO SCH (20:36)
[2020-10-15] MEDS: NON FORMULARY DRUG (Rosuvastatin 20 MG Tablet) PO SCH (20:45)
[2020-10-15] MEDS ORDERED: methylPREDNISolone SOD SUCCI 125 MG/2 ML VIAL ONE (23:50)
[2020-10-16 05:50] LABS: Glucose,Whole Blood 146 mg/dL (75-99)
[2020-10-16 06:21] LABS: Basophils # (A) 0.1 k/uL (0-0.2); Basophils % (A) 1 %; Eosinophils % (A) 0 %; HCT 41.6 % (39.0-53.0); HGB 13.6 gm/dL (13.0-17.5); Lymphocytes # (A) 0.5 k/uL (1.0-4.8); Lymphocytes % (A) 3 %; MCH 30.6 pg (25.0-35.0); MCHC 32.6 g/dL (31.0-37.0); MCV 93.6 fL (80.0-100.0); Mean Platelet Volume 7.8; Monocytes # (A) 0.3 k/uL (0-1.0); Monocytes % (A) 2 %; Neutrophils # (A) 12.2 k/uL (1.3-7.7); Neutrophils % (A) 91 %; Platelet Count 247 k/uL (150-450); RBC 4.44 m/uL (4.30-5.90); RDW 14.2 % (11.5-15.5); WBC 13.5 k/uL (3.8-10.6)
[2020-10-16] MEDS: methylPREDNISolone SOD SUCCI 125 MG/2 ML VIAL IV SCH ×4 (06:25→17:19)
--- NOTE | 2020-10-16 07:19 | XR ---
EXAMINATION TYPE: XR chest 1V portable DATE OF EXAM: 10/16/2020 COMPARISON: 10/15/2020 HISTORY: Line placement TECHNIQUE: Single frontal view of the chest is obtained. FINDINGS: Left-sided PICC line seen with the tip overlying the subclavian SVC junction. Vascular judie nt in the right. Patchy bilateral infiltrate and small effusion. Interstitial prominence noted. Heart size stable. Hypertrophic change of the spine. Arthropathy of the shoulders. Postsurgical change inv olving the shoulders. IMPRESSION: 1. Bilateral lower lobe infiltrate and small effusion with coarsened interstitium correlate for venou s congestion versus interstitial pneumonia.
[2020-10-16] MEDS: ALBUTEROL HFA INHALER INHALATION PRN ×4 (07:45→19:39)
[2020-10-16] MEDS: TIOTROPIUM 2.5 MCG INHALER INHALATION SCH (07:45)
[2020-10-16] MEDS: SYMBICORT 160-4.5 MCG INHALER INHALATION SCH ×2 (07:45→19:38)
[2020-10-16 07:49] LABS: Albumin 3.4 g/dL (3.5-5.0); C Reactive Protein 16.3 mg/L (<10.0); Calcium 8.7 mg/dL (8.4-10.2); Total Protein 6.3 g/dL (6.3-8.2)
[2020-10-16] MEDS: INSULIN ASPART (NovoLOG) 100 UNIT/ML VIAL SQ SCH ×4 (07:56→21:16)
[2020-10-16] MEDS: NON FORMULARY DRUG (Atomoxetine Hcl [Strattera] 60 MG Capsule) PO SCH (07:57)
[2020-10-16] MEDS: NON FORMULARY DRUG (Atomoxetine Hcl [Strattera] 40 MG Capsule) PO SCH (07:57)
[2020-10-16] MEDS: allopurinoL 300 MG TAB PO SCH (08:01)
[2020-10-16] MEDS: FUROSEMIDE 10 MG/ML 4 ML VIAL IV SCH (08:01)
[2020-10-16] MEDS: NEBIVOLOL 5 MG TAB PO SCH (08:01)
[2020-10-16] MEDS: PANTOPRAZOLE 40 MG TABLET PO SCH (08:02)
[2020-10-16] MEDS: levETIRAcetam 500 MG TAB PO SCH ×2 (08:02→21:16)
[2020-10-16] MEDS: METOPROLOL SUCCINATE (ER) 25 MG TAB.ER.24H PO SCH (08:02)
[2020-10-16] MEDS: LORATADINE 10 MG TAB PO SCH (08:02)
[2020-10-16] MEDS: VENLAFAXINE HCL 75 MG TAB PO SCH ×2 (08:02→21:17)
[2020-10-16] MEDS: guaiFENesin 600 MG TABLET.ER PO SCH ×2 (08:02→21:16)
[2020-10-16] MEDS: ASPIRIN 81 MG PO SCH (08:02)
[2020-10-16] MEDS: RIVAROXABAN 20 MG TAB PO SCH (08:03)
[2020-10-16] MEDS: MULTIVITAMINS, THERA 1 EACH TAB PO SCH (08:03)
[2020-10-16] MEDS: CHOLECALCIFEROL 25 MCG (1000 IU) TABLET PO SCH (08:03)
[2020-10-16 08:15] LABS: Glucose,Whole Blood 129 mg/dL (75-99)
--- NOTE | 2020-10-16 08:39 | P.PN ---
Subjective Progress Note Date: 10/16/20 This is a pleasant 70-year-old gentleman follows with Dr. Polo as his primary care provider. He has a history of coronary artery disease, peripheral vascular disease, congestive heart failure, hyperlipidemia, hypertension, PE/DVT, obstructive sleep apnea utilizing CPAP, chronic obstructive pulmonary disease on home oxygen at 2 L/m per nasal cannula. The patient is a 1 week history of increasing shortness of breath, nausea, vomiting, diarrhea, weakness and was seen at [facility] and tested positive for CoVID and was instructed to go to the emergency room. Chest x-ray reveals mild bilateral pulmonary interstitial infiltrates. He is seen today in consultation on the selective care unit. He is currently sitting up in bed. Awake and alert in no acute distress. He is maintaining good O2 saturations in the mid 90s on 2 L/m per nasal cannula. He is afebrile. Hemodynamically stable. White count 4.7. Hemoglobin 12.9. Platelet count 116. Lymphocytes 0.7. D-dimer 0.18. Sodium 139. Potassium 4.3. Creatinine 1.51. LDH 784. C-reactive protein 88.5. Pro Calcitonin 0.22. He's been initiated on Symbicort, albuterol. Endocrine related with Xarelto. On dexamethasone, multivitamin. The patient is seen today 10/11/2020 in follow-up on the selective care unit. He is currently sitting up in bed. Awake and alert in no acute distress. He is requiring 3 L nasal cannula to maintain O2 saturations 88% and higher. He is normally on 2 L at home. He denies any worsening shortness of breath. He continues with a loose nonproductive cough. He is maintained on dexamethasone, vitamin supplements. Anticoagulated with Xarelto. 10/12/2020 the patient is being seen in follow-up in the selective units. The patient has been diagnosed having Covid 19 related pneumonia. The patient is 70 years old and he is known to have coronary artery disease, peripheral vascular disease, congestive heart failure, hyperlipidemia, hypertension, PE/DVT, obstructive sleep apnea utilizing CPAP, chronic obstructive pulmonary disease on home oxygen at 2 L/m per nasal cannula. The patient is currently maintained on dexamethasone, vitamin supplements. Anticoagulated with Xarelto. The pat ient's pulmonary status overnight decompensated. The patient had the replacement high flow oxygen at 60 L with an FiO2 of 60%. Chest x-ray showed diffuse bilateral pulmonary infiltrates, mostly peripheral, consistent with Covid 19 pneumonia, probably there is some interval worsening. The patient has bilateral shoulder replacement. The blood gases from yesterday showed a pH of 7.45 with a pCO2 of 38 and pO2 of 63. His inflammatory markers from today are elevated. LDH level is up to 1228 and a CRP level is up to 85. Need 2020, the patient is still on high flow oxygen at 60 L with an FiO2 of 55%. Based on the significant drop in oxygenation, which The patient on steroids and the patient is currently on Decadron and we added Toci 400 mg and the patient received only 1 dose. He is going to receive his second dose of 400 mg today. Patient's oxygenation is stable. D-dimer is down at 0.33. His LDH level is at 1228 and the CRP is at 85. The chest x-ray from yesterday showed bilateral patchy pulmonary infiltrates. The patient has approximately 2 fibrillation and is maintained on Xarelto. The patient also is known to have coronary artery disease, peripheral vascular disease, congestive heart failure, hyperlipidemia, hypertension, PE/DVT, obstructive sleep apnea utilizing CPAP, chronic obstructive pulmonary disease on home oxygen at 2 L/m per nasal cannula. On 10/14/2020, the patient is gradually getting worse. He was desaturating despite being on high flow oxygen at 60 L and an FiO2 of 90% and he is also utilizing 100% nonrebreather facemask. Note that this patient has been treated aggressively. He received Decadron. He also received 2 doses of Tocilizumab. . The patient had a d-dimer of 1.06 and the rest of the inflammatory markers are still pending for now. Meanwhile, his labs are essentially within normal limits and his creatinine is down to 1.2. He remains on Decadron 6 mg IV every 24 hours. He is also on long-term antibiotic ventilation with Xarelto 20 mg by mouth daily. Note that the patient has previous history of DVT and pulmonary embolism. He has obstructive sleep apnea and he has COPD and is maintained on oxygen at 2 L per minute at home for chronic hypoxic respiratory failure. He has hypertension and hyperlipidemia congestion heart failure and peripheral vascular disease in addition to CABG as comorbid conditions. His last chest x- ray was from 09/14/2020 and a repeat chest x-ray will be ordered. His last chest x-ray showed diffuse breath and pulmonary infiltrates, mainly the peripheries consistent with Covid 19 related pneumonia. 10/15/2020, the patient is currently in the intensive care unit. Just like yesterday, he remains on high flow oxygen 6 L with an FiO2 of 90% and the patient is also utilizing 100% nonrebreather facemask. His current pulse ox is around 91%. He is comfortable. Is at the rate is in the low 30s. His chest x- ray from today showing stable bilateral pulmonary infiltrates without any major interval change compared to yesterday. His blood work from today shows no electrolyte abnormalities, creatinine stable at 1.2. His inflammatory markers are still pending. CRP is down to 29, LDH is pending for now. The d-dimer is at 1.85. In terms of therapy, and he is on IV Solu-Medrol 60 mg every 6 hours is also on multivitamins and he remains on long-term anticoagulation with Xarelto. He is lethargic. Oral intake is quite diminished at this point in time. No altered mentation. Is able to follow commands appropriately. He is weak. He is known to have COPD, previous bypass, hypertension and hyperlipidemia and peripheral vascular disease. He is also known to have CHF. He does have a remote history of DVT and pulmonary embolism. He remains in the ICU for now. He got transferred to the ICU yesterday because of ongoing difficulties with shortness of breath and hypoxemia. His echocardiogram from 2018 was essentially within normal limits and he had a normal ejection fraction. 10/16/2020, Rayo is on 60 L of oxygen along with an FiO2 of 90% and the patient is on 100% nonrebreather facemask. He is quite comfortable. He takes of his main for feeding purposes. During this time, he desaturates and is relatively asymptomatic while he desaturates. He goes down to the 80s and he recovers. He is not tachypneic. He is resting comfortably in bed. In terms of treatment, the patient remains on IV Solu Medrol 60 mg every 6 hours. He is on long-term anticoagulation with Xarelto. His chest x-ray from today is reviewed and is showing some limited improvement in the bilateral interstitial infiltrates seen earlier. In terms of his inflammatory markers, his LDH from yesterday and today has not been checked. His last LDH level was on 10/14/2020 was 1797. His CRP level has dropped down to 16.3. His d-dimer level is at 4.08. As mentioned, the patient is on anticoagulation and he is on Xarelto. He is also on Lasix and he is receiving Lasix 40 mg IV every 24 hours. Neck fluid balance over the past 24 hours has been -2.2 L and is responding nicely to diuretics and his weight is declined. No other significant issues. No altered mentation. No agitation. No confusion. No nausea. No vomiting. No diarrhea. No abdominal pain. No chest pain. He is known to have CAD, previous bypass, hypertension and hyperlipidemia and peripheral vascular disease. He also has history of DVT and pulmonary embolism remains on anticoagulation. Objective - Vital Signs Vital signs: Vital Signs Temp 97.3 F L 10/16/20 08:00 Pulse 69 10/16/20 08:00 Resp 34 H 10/16/20 08:00 BP 142/80 10/16/20 08:00 Pulse Ox 88 L 10/16/20 08:00 Intake & Output 10/15/20 10/16/20 10/16/20 18:59 06:59 18:59 Intake Total 200 Output Total 1628 860 150 Balance -1628 -660 -150 Weight 117.6 kg Intake: Oral 200 Output: Urine 1628 860 150 Other: Voiding Method Indwelling Catheter Indwelling Catheter Indwelling Catheter - Exam GENERAL EXAM: Alert, pleasant 70-year-old gentleman, on 60L nasal cannula, comfortable in no apparent distress. Vital FiO2 of 90% and he is also using 100% nonrebreather facemask. His current pulse ox is at 90%. HEAD: Normocephalic. EYES: Normal reaction of pupils, equal size. NOSE: Clear with pink turbinates. THROAT: No erythema or exudates. NECK: No masses, no JVD. CHEST: No chest wall deformity. LUNGS: Equal air entry with few scattered rhonchi, crackles in the bases. CVS: S1 and S2 normal with no audible murmur, regular rhythm. ABDOMEN: No hepatosplenomegaly, normal bowel sounds, no guarding or rigidity. SPINE: No scoliosis or deformity SKIN: No rashes CENTRAL NERVOUS SYSTEM: No focal deficits, tone is normal in all 4 extremities. EXTREMITIES: There is no peripheral edema. No clubbing, no cyanosis. Peripheral pulses are intact. - Labs CBC & Chem 7: 10/16/20 04:30 10/16/20 04:30 Labs: Abnormal Lab Results - Last 24 Hours (Table) 10/15/20 10/15/20 10/15/20 Range/Units 04:35 11:32 16:51 WBC (3.8-10.6) k/uL Neutrophils # (1.3-7.7) k/uL Lymphocytes # (1.0-4.8) k/uL D-Dimer (<0.60) mg/L FEU BUN (9-20) mg/dL Glucose (74-99) mg/dL POC Glucose (mg/dL) 165 H 175 H (75-99) mg/dL Ferritin 1340.6 H (22.0-322.0) ng/mL AST (17-59) U/L ALT (4-49) U/L C-Reactive Protein (<10.0) mg/L Albumin (3.5-5.0) g/dL 10/15/20 10/16/20 10/16/20 Range/Units 20:16 04:30 04:30 WBC 13.5 H (3.8-10.6) k/uL Neutrophils # 12.2 H (1.3-7.7) k/uL Lymphocytes # 0.5 L (1.0-4.8) k/uL D-Dimer 4.08 H (<0.60) mg/L FEU BUN (9-20) mg/dL Glucose (74-99) mg/dL POC Glucose (mg/dL) 150 H (75-99) mg/dL Ferritin (22.0-322.0) ng/mL AST (17-59) U/L ALT (4-49) U/L C-Reactive Protein (<10.0) mg/L Albumin (3.5-5.0) g/dL 10/16/20 10/16/20 10/16/20 Range/Units 04:30 05:48 07:56 WBC (3.8-10.6) k/uL Neutrophils # (1.3-7.7) k/uL Lymphocytes # (1.0-4.8) k/uL D-Dimer (<0.60) mg/L FEU BUN 52 H (9-20) mg/dL Glucose 138 H (74-99) mg/dL POC Glucose (mg/dL) 146 H 129 H (75-99) mg/dL Ferritin (22.0-322.0) ng/mL AST 111 H (17-59) U/L ALT 137 H (4-49) U/L C-Reactive Protein 16.3 H (<10.0) mg/L Albumin 3.4 L (3.5-5.0) g/dL Assessment and Plan Plan: 1 Acute on chronic hypoxic respiratory failure secondary to acute CoVID 19 pneum onia, currently on 60 L of oxygen by nasal cannula with an FiO2 of 90% and he is also on 100% nonrebreather facemask and the patient is currently on Solu- Medrol and anticoagulation with Xarelto. Chest x-ray may be showing some slight improvement. The patient is still on the same oxygen flow setting. This will be kept unchanged with an attempt to wean down FiO2. Continue diuresis. Repeat inflammatory markers. 2 acute hypoxic respiratory failure secondary to above. Note that the patient h as chronic hypoxic respiratory failure on 2 L of oxygen by nasal cannula. 3 Acute on chronic renal failure the creatinine is at 1.2 4 Chronic hypoxic respiratory failure secondary to chronic obstructive pulmonary disease on home O2 at 2 L/m 5 Former smoker 6 History of coronary disease 7 Hyperlipidemia 8 Hypertension 9 History of PE/DVT anticoagulate with Xarelto 10 History of depression 11 Obstructive sleep apnea utilizing CPAP 12 History of peripheral vascular disease 13 BPH Plan: The patient had a rapid deterioration in the respirator status and currently is on 60 L by nasal cannula. He is on an FiO2 of 90% and the patient is also utilizing a kno 100% nonrebreather facemask. For now, the patient is stable and his oxygen flow has remained stable. No decompensation. No worsening shortness of breath. He is utilizing 100% nonrebreather facemask on and off and is able t o tolerate diet. He is also being diuresis with IV Lasix. He remains a negative fluid balance. Some limited improvement in the chest x-ray findings. Quite weak and debilitated at this point in time. Overall condition is stable compared to yesterday I'm going to continue IV Solu-Medrol 60 mg every 6 hours. He has already received Tocilizumab x2 . A repeat chest x-ray from today stable He is currently on Xarelto and the d-dimer is mildly elevated. Lasix 40 mg IV every 24 hours The patient is on no IV fluids for now. PICC line was inserted We will continue to follow , keep the patient in ICU for now.
--- NOTE | 2020-10-16 11:27 | P.PN ---
Subjective Progress Note Date: 10/16/20 HISTORY OF PRESENT ILLNESS This is a 70 years old male patient of Dr. Polo with past medical history of pulmonary embolism diagnosed in [place] 2 years ago, history of lower extremity DVT, coronary artery disease no stent, history of heart failure unknown if systolic or diastolic, COPD, hyperlipidemia, hypertension, osteoarthritis, prostate cancer, skin disorder,'s obstructive sleep apnea on CPAP, subclavian steal syndrome with stent placement, history of recent penile implant on 07/27/2016. Patient has chronic shortness of breath that has been going on for the past 2 years since the diagnosis of pulmonary embolism with O2 requirements at 2 L nasal cannula Patient is currently on maintenance dose of xarelto at 10 mg daily. He presents emergency room secondary to worsening dyspnea, x 7 days without any medical intervention prior to this, He was seen in the Emergency room for the shortness of breath, worsening dyspnea and exertion, and was found to be SARS cov 2 positive. Chest x-ray, shows bilateral pulmonary interstitial infiltrates compared to old exam, with a similar atelectasis. Poor inspiration, no hilar masses laboratory shows hemoglobin of 12.9, WBC count of 7, creatinine of 1.47, iron of 1.2, glucose 120 CRP 88, pro-calcitonin slightly elevated 0.22. Patient denies any chronic prednisone exposure, Consult were made with pulmonary, Dr. Ramos, pulse oximetry would be 9 PT 1697 at 2-3 L nasal cannula, blood pressure of 129/66. 10/11: Patient was seen for follow-up today, he is a little bit tachypnea, very small amount of labored breathing only on exertion, no conversational dyspnea, O2 at 2 L, sats 95%, no clearance from pulmonary medicine are stable were rounding today, no cough, no pleurisy, no chest pain no palpitations, creatinine at 1.5 today, electrolytes are normal, wbc of 4.7, LDH of 784, ferritin 533 patient is on IV dexamethasone maintained on Xarelto, no new treatment from pulmonary critical care today, currently stable 10/12: A-Team is called during the night due to hypoxia and patient was started on AirVo. Respiratory rate is been in the 40s, heart rate 74, afebrile, pulse ox 96%. Chest x-ray from yesterday revealed patchy. Hilar and basilar infiltrates persist and have progressed slightly in the interval. Repeat blood work reveals WBC 6.8, hemoglobin 12.4, platelet count 135. LDH 1228. C- reactive protein 85.1. The patient has developed increasing difficulty with breathing. He denies having any chest pain. He states he could not sleep through the night. 10/13: Patient states that his breathing status is about the same as yesterday or little bit more difficult. He denies any coughing up blood. He denies any abdominal pain, nausea or vomiting, no diarrhea. Patient remains on Arava with pulse ox of 88-90%. Afebrile, heart rate 69, respiratory rate 40, blood pressure 137/76. Patient is status post 2 doses of Tocilizumab. patient is followed closely by pulmonary medicine. 10/14: Patient is currently on AirVo and nonrebreather but states that he is feeling better today and that his breathing is better. He has been afebrile, heart rate 72, respiratory rate 36, blood pressure 130/70, pulse ox 90%. He denies having abdominal pain, nausea vomiting or diarrhea. He remains on Solu- Medrol 60 mg IV every 6 hours. 10/15: Patient was transferred to the ICU per Dr. Wright. He is currently on AirVo only at time of evaluation and is eating his breakfast. Patient has been maintained on Arava plus nonrebreather. His breathing status appears to be improved from yesterday. His pulse ox is 88%. Afebrile, heart rate 76, respiratory rate 25, blood pressure 131/81. Repeat chest x-ray reveals stable chest. Repeat blood work reveals normal CBC. D-dimer 1.85. C-reactive protein 29. LDH is pending. Ferritin level 1340.6. Patient is scheduled for PICC line insertion today. Lasix 40 mg IV push ordered today by pulmonary medicine. Patient is continued on Solu-Medrol 60 mg every 6 hours. Patient not receiving any antibiotics at this time. 10/16: Patient remains in the intensive care unit. He was off nonrebreather and only on AirVo yesterday most of the day. Now he is on both AirVo and nonrebreather and taking the nonrebreather on and off as he needs it. He is eating 50% of his meals. He has been afebrile, heart rate 69, respiratory rate 34, blood pressure 142/80, pulse ox 88% on both AirVo and nonrebreather. Repeat blood work reveals W BC 13.5, hemoglobin 13.6, platelet count 247. Electrolytes normal. BUN 52 and creatinine 1.2. Blood sugars running between 120 975. Total bilirubin 1.0, AST 111, ALT 137, alkaline phosphatase 80. C-reactive p rotein 16.3, CK 65. Repeat chest x-ray reveals bilateral lower lobe infiltrate and small effusion with coarsened interstitium correlate for venous congestion versus interstitial pneumonia. Patient surprisingly feels his breathing is stable. He has no new complaints. REVIEW OF SYSTEMS Constitutional: Denies fever, no chills, no night sweats. No weight change. No weakness, fatigue or lethargy. EENT: No headache. No dizziness. No nasal drainage or congestion. No epistaxis. No sore throat. Lungs: Reports shortness of breath, reports cough, no sputum production. No wheezing. reports dyspnea with exertion. Cardiovascular: No chest pain, no lower extremity edema. No palpitations. No paroxysmal nocturnal dyspnea. No orthopnea. No lightheadedness or dizziness. No syncopal episodes. Abdominal: No abdominal pain. No nausea, vomiting. No diarrhea. No con stipation. No bloody or tarry stools.. No loss of appetite. Genitourinary: No dysuria, increased frequency, urgency. No urinary retention. Musculoskeletal: No myalgias. No muscle weakness, no gait dysfunction, no frequent falls. No back pain. No neck pain. Integumentary: No wounds, no lesions. No rash or pruritus. No unusual bruising. No change in hair or nails. Neurologic: No aphasia. No facial droop. No change in mentation. No head injury. No headache. Psychiatric: No depression. No anxiety. No mood swings. Reports insomnia. Endocrine: Noted abnormal blood sugars. No weight change. PHYSICAL EXAMINATION Gen: This is a 70-year-old male. He is resting in ICU bed and appears to be comfortable at rest. Patient is on nonrebreather and AirVo. HEENT: Head is atraumatic, normocephalic. Pupils equal, round. Sclerae is anicteric. NECK: Supple. No JVD. No lymphadenopathy. No thyromegaly. LUNGS: Few scattered rhonchi and scattered expiratory wheezing. Mild intercostal retractions. HEART: Regular rate and rhythm. No murmur. ABDOMEN: Soft. Bowel sounds are present. No masses. No tenderness. EXTREMITIES: No pedal edema. No calf tenderness. Dorsalis pedis palpable bilaterally. NEUROLOGICAL: Patient is awake, alert and oriented x3. Cranial nerves 2 through 12 are grossly intact. ASSESSMENT AND PLAN 1. Acute SARS COV2, infection with acute hypoxic respiratory failure. Continue airflow, pulmonary consult appreciated. Due to cytokine storm and worsening hypoxia, we're going to monitor him for worsening hypoxemia as well as respiratory distress, has history of appropriate for aggressive treatment. Co ntinue Solu-Medrol 60 mg every 6 hours, albuterol inhaler as needed, Symbicort inhaler twice daily. Continue vitamin D. Patient is status post 2 doses of Tocilizumab 2. Chronic anticoagulation, secondary to history of DVT in the past, long-term anticoagulation using Xarelto, which is maintained 3. History of DVT of the right leg in December 2013, resolved on Lasix 40 mg daily, 4. COPD. Continue albuterol- Atrovent as needed . Continue Symbicort twice daily 5 Hyperlipidemia. Continue Crestor daily. 6 Subclavian steal syndrome status post stent in the right carotid. 7 Benign prostatic hypertrophy. Monitor for urinary retention. Continue Flomax daily 8 History of coronary artery disease with previous myocardial infarction. 9 Obstructive Sleep apnea. Patient to continue his own CPAP machine. 10 Gastroesophageal reflux disease and gastric intestinal prophylaxis. Doris nue Nexium or equivalent. 11. Hypertension. Continue bystolic 10 mg daily . Hold Lasix and Spiriva lactone. 12. Depression. Continue Cymbalta 150 mg twice daily. 13. History of ADHD. Strattera on hold. 13. Chronic kidney disease stage III, stable 14. History of ischemic cardiomyopathy with prior ejection fraction 40%, Lasix 40 mg daily aspirin 81 mg metoprolol no changes made 15 CODE STATUS full code DISCHARGE PLAN Most likely return home. Impression and plan of care have been directed as dictated by the signing physician. Nena Frausto nurse practitioner acting as scribe for signing physician. Objective - Vital Signs Vital signs: Vital Signs Temp 97.3 F L 10/16/20 08:00 Pulse 69 10/16/20 08:00 Resp 34 H 10/16/20 08:00 BP 142/80 10/16/20 08:00 Pulse Ox 88 L 10/16/20 08:00 Intake & Output 10/15/20 10/16/20 10/16/20 18:59 06:59 18:59 Intake Total 200 Output Total 1628 860 150 Balance -7498 -660 -150 Weight 117.6 kg Intake: Oral 200 Output: Urine 1620 860 150 Other: Voiding Method Indwelling Catheter Indwelling Catheter Indwelling Catheter - Labs CBC & Chem 7: 10/16/20 04:30 10/16/20 04:30 Labs: Abnormal Lab Results - Last 24 Hours (Table) 10/15/20 10/15/20 10/15/20 Range/Units 04:35 11:32 16:51 WBC (3.8-10.6) k/uL Neutrophils # (1.3-7.7) k/uL Lymphocytes # (1.0-4.8) k/uL D-Dimer (<0.60) mg/L FEU BUN (9-20) mg/dL Glucose (74-99) mg/dL POC Glucose (mg/dL) 165 H 175 H (75-99) mg/dL Ferritin 1340.6 H (22.0-322.0) ng/mL AST (17-59) U/L ALT (4-49) U/L C-Reactive Protein (<10.0) mg/L Albumin (3.5-5.0) g/dL 10/15/20 10/16/20 10/16/20 Range/Units 20:16 04:30 04:30 WBC 13.5 H (3.8-10.6) k/uL Neutrophils # 12.2 H (1.3-7.7) k/uL Lymphocytes # 0.5 L (1.0-4.8) k/uL D-Dimer 4.08 H (<0.60) mg/L FEU BUN (9-20) mg/dL Glucose (74-99) mg/dL POC Glucose (mg/dL) 150 H (75-99) mg/dL Ferritin (22.0-322.0) ng/mL AST (17-59) U/L ALT (4-49) U/L C-Reactive Protein (<10.0) mg/L Albumin (3.5-5.0) g/dL 10/16/20 10/16/2021 Range/Units 04:30 05:48 07:56 WBC (3.8-10.6) k/uL Neutrophils # (1.3-7.7) k/uL Lymphocytes # (1.0-4.8) k/uL D-Dimer (<0.60) mg/L FEU BUN 52 H (9-20) mg/dL Glucose 138 H (74-99) mg/dL POC Glucose (mg/dL) 146 H 129 H (75-99) mg/dL Ferritin (22.0-322.0) ng/mL AST 111 H (17-59) U/L ALT 137 H (4-49) U/L C-Reactive Protein 16.3 H (<10.0) mg/L Albumin 3.4 L (3.5-5.0) g/dL
[2020-10-16 11:37] LABS: Glucose,Whole Blood 165 mg/dL (75-99)
[2020-10-16 16:54] LABS: Glucose,Whole Blood 156 mg/dL (75-99)
[2020-10-16 19:12] LABS: Ferritin 1517.8 ng/mL (22.0-322.0)
[2020-10-16] MEDS: NON FORMULARY DRUG (Rosuvastatin 20 MG Tablet) PO SCH (21:03)
[2020-10-16] MEDS: MIRTAZAPINE 15 MG TAB PO SCH (21:17)
[2020-10-16 21:27] LABS: Glucose,Whole Blood 165 mg/dL (75-99)
[2020-10-17] MEDS: methylPREDNISolone SOD SUCCI 125 MG/2 ML VIAL IV SCH ×4 (00:02→18:37)
[2020-10-17 04:52] LABS: Basophils # (A) 0.1 k/uL (0-0.2); Basophils % (A) 1 %; Eosinophils # (A) 0.1 k/uL (0-0.7); Eosinophils % (A) 0 %; HCT 39.8 % (39.0-53.0); HGB 13.7 gm/dL (13.0-17.5); Lymphocytes # (A) 0.4 k/uL (1.0-4.8); Lymphocytes % (A) 3 %; MCH 31.9 pg (25.0-35.0); MCHC 34.5 g/dL (31.0-37.0); MCV 92.3 fL (80.0-100.0); Mean Platelet Volume 7.6; Monocytes # (A) 0.3 k/uL (0-1.0); Monocytes % (A) 2 %; Neutrophils # (A) 14.3 k/uL (1.3-7.7); Neutrophils % (A) 91 %; Platelet Count 239 k/uL (150-450); RBC 4.31 m/uL (4.30-5.90); RDW 13.9 % (11.5-15.5); WBC 15.8 k/uL (3.8-10.6)
[2020-10-17 05:02] LABS: Albumin 3.5 g/dL (3.5-5.0); C Reactive Protein 11.3 mg/L (<10.0); Calcium 8.7 mg/dL (8.4-10.2); Potassium 4.2 mmol/L (3.5-5.1); Total Bilirubin 1.5 mg/dL (0.2-1.3); Total Protein 6.5 g/dL (6.3-8.2)
[2020-10-17 06:49] LABS: Glucose,Whole Blood 129 mg/dL (75-99)
[2020-10-17] MEDS: INSULIN ASPART (NovoLOG) 100 UNIT/ML VIAL SQ SCH ×4 (06:51→20:42)
--- NOTE | 2020-10-17 07:16 | XR ---
EXAMINATION TYPE: XR chest 1V portable DATE OF EXAM: 10/17/2020 COMPARISON: 10/16/2020 HISTORY: Shortness of breath TECHNIQUE: Single frontal view of the chest is obtained. FINDINGS: There are probable small bilateral pleural effusions unchanged since prior study. There is mild inter stitial opacity predominantly in the left lung which is stable. The interstitial opacity seen in the right lung on the prior study has essentially cleared in the interval. Heart size is normal for the technique. There are bilateral reverse shoulder prostheses otherwise the osseous structures are intact. IMPRESSION: Mild interval progression in the lung infiltrates within the right lung. The left lung is stable. No change in the small bilateral pleural effusions.
[2020-10-17] MEDS: SYMBICORT 160-4.5 MCG INHALER INHALATION SCH ×2 (07:39→19:38)
[2020-10-17] MEDS: TIOTROPIUM 2.5 MCG INHALER INHALATION SCH (07:39)
[2020-10-17] MEDS: ALBUTEROL HFA INHALER INHALATION PRN ×4 (07:40→19:38)
--- NOTE | 2020-10-17 08:09 | P.PN ---
Subjective Progress Note Date: 10/17/20 This is a pleasant 70-year-old gentleman follows with Dr. Polo as his primary care provider. He has a history of coronary artery disease, peripheral vascular disease, congestive heart failure, hyperlipidemia, hypertension, PE/DVT, obstructive sleep apnea utilizing CPAP, chronic obstructive pulmonary disease on home oxygen at 2 L/m per nasal cannula. The patient is a 1 week history of increasing shortness of breath, nausea, vomiting, diarrhea, weakness and was seen at [facility] and tested positive for CoVID and was instructed to go to the emergency room. Chest x-ray reveals mild bilateral pulmonary interstitial infiltrates. He is seen today in consultation on the selective care unit. He is currently sitting up in bed. Awake and alert in no acute distress. He is maintaining good O2 saturations in the mid 90s on 2 L/m per nasal cannula. He is afebrile. Hemodynamically stable. White count 4.7. Hemoglobin 12.9. Platelet count 116. Lymphocytes 0.7. D-dimer 0.18. Sodium 139. Potassium 4.3. Creatinine 1.51. LDH 784. C-reactive protein 88.5. Pro Calcitonin 0.22. He's been initiated on Symbicort, albuterol. Endocrine related with Xarelto. On dexamethasone, multivitamin. The patient is seen today 10/11/2020 in follow-up on the selective care unit. He is currently sitting up in bed. Awake and alert in no acute distress. He is requiring 3 L nasal cannula to maintain O2 saturations 88% and higher. He is normally on 2 L at home. He denies any worsening shortness of breath. He continues with a loose nonproductive cough. He is maintained on dexamethasone, vitamin supplements. Anticoagulated with Xarelto. 10/12/2020 the patient is being seen in follow-up in the selective units. The patient has been diagnosed having Covid 19 related pneumonia. The patient is 70 years old and he is known to have coronary artery disease, peripheral vascular disease, congestive heart failure, hyperlipidemia, hypertension, PE/DVT, obstructive sleep apnea utilizing CPAP, chronic obstructive pulmonary disease on home oxygen at 2 L/m per nasal cannula. The patient is currently maintained on dexamethasone, vitamin supplements. Anticoagulated with Xarelto. The pat ient's pulmonary status overnight decompensated. The patient had the replacement high flow oxygen at 60 L with an FiO2 of 60%. Chest x-ray showed diffuse bilateral pulmonary infiltrates, mostly peripheral, consistent with Covid 19 pneumonia, probably there is some interval worsening. The patient has bilateral shoulder replacement. The blood gases from yesterday showed a pH of 7.45 with a pCO2 of 38 and pO2 of 63. His inflammatory markers from today are elevated. LDH level is up to 1228 and a CRP level is up to 85. Need 2020, the patient is still on high flow oxygen at 60 L with an FiO2 of 55%. Based on the significant drop in oxygenation, which The patient on steroids and the patient is currently on Decadron and we added Toci 400 mg and the patient received only 1 dose. He is going to receive his second dose of 400 mg today. Patient's oxygenation is stable. D-dimer is down at 0.33. His LDH level is at 1228 and the CRP is at 85. The chest x-ray from yesterday showed bilateral patchy pulmonary infiltrates. The patient has approximately 2 fibrillation and is maintained on Xarelto. The patient also is known to have coronary artery disease, peripheral vascular disease, congestive heart failure, hyperlipidemia, hypertension, PE/DVT, obstructive sleep apnea utilizing CPAP, chronic obstructive pulmonary disease on home oxygen at 2 L/m per nasal cannula. On 10/14/2020, the patient is gradually getting worse. He was desaturating despite being on high flow oxygen at 60 L and an FiO2 of 90% and he is also utilizing 100% nonrebreather facemask. Note that this patient has been treated aggressively. He received Decadron. He also received 2 doses of Tocilizumab. . The patient had a d-dimer of 1.06 and the rest of the inflammatory markers are still pending for now. Meanwhile, his labs are essentially within normal limits and his creatinine is down to 1.2. He remains on Decadron 6 mg IV every 24 hours. He is also on long-term antibiotic ventilation with Xarelto 20 mg by mouth daily. Note that the patient has previous history of DVT and pulmonary embolism. He has obstructive sleep apnea and he has COPD and is maintained on oxygen at 2 L per minute at home for chronic hypoxic respiratory failure. He has hypertension and hyperlipidemia congestion heart failure and peripheral vascular disease in addition to CABG as comorbid conditions. His last chest x- ray was from 09/14/2020 and a repeat chest x-ray will be ordered. His last chest x-ray showed diffuse breath and pulmonary infiltrates, mainly the peripheries consistent with Covid 19 related pneumonia. 10/15/2020, the patient is currently in the intensive care unit. Just like yesterday, he remains on high flow oxygen 6 L with an FiO2 of 90% and the patient is also utilizing 100% nonrebreather facemask. His current pulse ox is around 91%. He is comfortable. Is at the rate is in the low 30s. His chest x- ray from today showing stable bilateral pulmonary infiltrates without any major interval change compared to yesterday. His blood work from today shows no electrolyte abnormalities, creatinine stable at 1.2. His inflammatory markers are still pending. CRP is down to 29, LDH is pending for now. The d-dimer is at 1.85. In terms of therapy, and he is on IV Solu-Medrol 60 mg every 6 hours is also on multivitamins and he remains on long-term anticoagulation with Xarelto. He is lethargic. Oral intake is quite diminished at this point in time. No altered mentation. Is able to follow commands appropriately. He is weak. He is known to have COPD, previous bypass, hypertension and hyperlipidemia and peripheral vascular disease. He is also known to have CHF. He does have a remote history of DVT and pulmonary embolism. He remains in the ICU for now. He got transferred to the ICU yesterday because of ongoing difficulties with shortness of breath and hypoxemia. His echocardiogram from 2018 was essentially within normal limits and he had a normal ejection fraction. 10/16/2020, Rayo is on 60 L of oxygen along with an FiO2 of 90% and the patient is on 100% nonrebreather facemask. He is quite comfortable. He takes of his main for feeding purposes. During this time, he desaturates and is relatively asymptomatic while he desaturates. He goes down to the 80s and he recovers. He is not tachypneic. He is resting comfortably in bed. In terms of treatment, the patient remains on IV Solu Medrol 60 mg every 6 hours. He is on long-term anticoagulation with Xarelto. His chest x-ray from today is reviewed and is showing some limited improvement in the bilateral interstitial infiltrates seen earlier. In terms of his inflammatory markers, his LDH from yesterday and today has not been checked. His last LDH level was on 10/14/2020 was 1797. His CRP level has dropped down to 16.3. His d-dimer level is at 4.08. As mentioned, the patient is on anticoagulation and he is on Xarelto. He is also on Lasix and he is receiving Lasix 40 mg IV every 24 hours. Neck fluid balance over the past 24 hours has been -2.2 L and is responding nicely to diuretics and his weight is declined. No other significant issues. No altered mentation. No agitation. No confusion. No nausea. No vomiting. No diarrhea. No abdominal pain. No chest pain. He is known to have CAD, previous bypass, hypertension and hyperlipidemia and peripheral vascular disease. He also has history of DVT and pulmonary embolism remains on anticoagulation. 10/17/2020, the patient is on high flow oxygen at 60 L along with FiO2 of 90%. Chest x-ray showing infiltrates mainly on the left compared to the right. Lung volumes are essentially small. No major interval change compared to yesterday, the right lung is obviously better compared to the chest x-ray yesterday. In terms of his clinical status, the patient is feeling that he is less short of breath compared to yesterday. He has occasional cough. No chest pain. He is able to get rid of his 100% nonrebreather facemask and tolerate his diet. He is taking approximately 50% of his diet provided. He remains on IV Solu-Medrol. He remains on long-term articulation with Xarelto. LDH and CRP are being monitored. The levels were quite elevated and the LDH today's 2785 and the CRP is 11.3. The BUN is a 54 with a creatinine of 1.09. Electrolytes are normal, d-dimer is at 6.88, and the CBC showing a white cell count of 15.8 with a hemoglobin of 13.7. No confusion. No altered mentation. Fluid balance is in order of -2.4 L. He is getting Lasix 40 mg IV every 24 hours. No other significant events overnight Objective - Vital Signs Vital signs: Vital Signs Temp 97.5 F L 10/16/20 20:00 Pulse 68 10/17/20 07:00 Resp 38 H 10/17/20 07:00 BP 148/89 10/17/20 07:00 Pulse Ox 86 L 10/17/20 07:40 Intake & Output 10/16/20 10/17/20 10/17/20 18:59 06:59 18:59 Intake Total 300 200 Output Total 1627 1100 200 Balance -1627 -800 0 Weight 119.1 kg Intake: Oral 300 200 Output: Urine 1627 1100 200 Other: Voiding Method Indwelling Catheter Indwelling Catheter Indwelling Catheter - Exam GENERAL EXAM: Alert, pleasant 70-year-old gentleman, on 60L nasal cannula, comfortable in no apparent distress. Vital FiO2 of 90% and he is also using 100% nonrebreather facemask. His current pulse ox is at 90%. HEAD: Normocephalic. EYES: Normal reaction of pupils, equal size. NOSE: Clear with pink turbinates. THROAT: No erythema or exudates. NECK: No masses, no JVD. CHEST: No chest wall deformity. LUNGS: Equal air entry with few scattered rhonchi, crackles in the bases. CVS: S1 and S2 normal with no audible murmur, regular rhythm. ABDOMEN: No hepatosplenomegaly, normal bowel sounds, no guarding or rigidity. SPINE: No scoliosis or deformity SKIN: No rashes CENTRAL NERVOUS SYSTEM: No focal deficits, tone is normal in all 4 extremities. EXTREMITIES: There is no peripheral edema. No clubbing, no cyanosis. Peripheral pulses are intact. - Labs CBC & Chem 7: 10/17/20 04:16 10/17/20 04:16 Labs: Abnormal Lab Results - Last 24 Hours (Table) 10/16/20 10/16/20 10/16/20 Range/Units 04:30 07:56 11:36 WBC (3.8-10.6) k/uL Neutrophils # (1.3-7.7) k/uL Lymphocytes # (1.0-4.8) k/uL D-Dimer (<0.60) mg/L FEU BUN (9-20) mg/dL Glucose (74-99) mg/dL POC Glucose (mg/dL) 129 H 165 H (75-99) mg/dL Ferritin 1517.8 H (22.0-322.0) ng/mL Total Bilirubin (0.2-1.3) mg/dL AST (17-59) U/L ALT (4-49) U/L Lactate Dehydrogenase (313-618) U/L Creatine Kinase (55-170) U/L C-Reactive Protein (<10.0) mg/L 10/16/20 10/16/20 10/17/20 Range/Units 16:53 21:08 04:16 WBC 15.8 H (3.8-10.6) k/uL Neutrophils # 14.3 H (1.3-7.7) k/uL Lymphocytes # 0.4 L (1.0-4.8) k/uL D-Dimer (<0.60) mg/L FEU BUN (9-20) mg/dL Glucose (74-99) mg/dL POC Glucose (mg/dL) 156 H 165 H (75-99) mg/dL Ferritin (22.0-322.0) ng/mL Total Bilirubin (0.2-1.3) mg/dL AST (17-59) U/L ALT (4-49) U/L Lactate Dehydrogenase (313-618) U/L Creatine Kinase (55-170) U/L C-Reactive Protein (<10.0) mg/L 10/17/20 10/17/20 10/17/20 Range/Units 04:16 04:16 06:44 WBC (3.8-10.6) k/uL Neutrophils # (1.3-7.7) k/uL Lymphocytes # (1.0-4.8) k/uL D-Dimer 6.88 H (<0.60) mg/L FEU BUN 54 H (9-20) mg/dL Glucose 127 H (74-99) mg/dL POC Glucose (mg/dL) 129 H (75-99) mg/dL Ferritin (22.0-322.0) ng/mL Total Bilirubin 1.5 H (0.2-1.3) mg/dL AST 195 H (17-59) U/L ALT 304 H (4-49) U/L Lactate Dehydrogenase 2785 H (313-618) U/L Creatine Kinase 51 L (55-170) U/L C-Reactive Protein 11.3 H (<10.0) mg/L Assessment and Plan Plan: 1 Acute on chronic hypoxic respiratory failure secondary to acute CoVID 19 pneumonia, post Tocilizumab x2, no Remdesivir, currently on 60 L of oxygen by nasal cannula with an FiO2 of 90% and he is also on 100% nonrebreather facemask and the patient is currently on Solu-Medrol and anticoagulation with Xarelto. Chest x-ray may be showing some slight improvement. The patient is still on the same oxygen flow setting. This will be kept unchanged with an attempt to wean down FiO2. Continue diuresis. Repeat inflammatory markers Are quite on the rise including the LDH. Overall condition is probably the same as yesterday. Fortunately is able to tolerate diet and his at least taking some of his caloric requirements. 2 acute hypoxic respiratory failure secondary to above. Note that the patient has chronic hypoxic respiratory failure on 2 L of oxygen by nasal cannula. 3 Acute on chronic renal failure the creatinine is at 1.2 4 Chronic hypoxic respiratory failure secondary to chronic obstructive pulmonary disease on home O2 at 2 L/m 5 Former smoker 6 History of coronary disease 7 Hyperlipidemia 8 Hypertension 9 History of PE/DVT anticoagulate with Xarelto 10 History of depression 11 Obstructive sleep apnea utilizing CPAP 12 History of peripheral vascular disease 13 BPH Plan: The patient had a rapid deterioration in the respirator status and currently is on 60 L by nasal cannula. He is on an FiO2 of 90% and the patient is also utilizing a kno 100% nonrebreather facemask. For now, the patient is stable and his oxygen flow has remained stable. No decompensation. No worsening shortness of breath. Inflammatory markers are quite elevated including LDH and d-dimer IV Solu-Medrol 60 mg every 6 hours. He has already received Tocilizumab x2 . A repeat chest x-ray from today stable He is currently on Xarelto and the d-dimer is mildly elevated. Lasix 40 mg IV every 24 hours The patient is on no IV fluids for now. PICC line was inserted We will continue to follow , keep the patient in ICU for now.
[2020-10-17] MEDS: METOPROLOL SUCCINATE (ER) 25 MG TAB.ER.24H PO SCH (09:47)
[2020-10-17] MEDS: FUROSEMIDE 10 MG/ML 4 ML VIAL IV SCH (09:48)
[2020-10-17] MEDS: PANTOPRAZOLE 40 MG TABLET PO SCH (09:48)
[2020-10-17] MEDS: levETIRAcetam 500 MG TAB PO SCH ×2 (09:48→20:41)
[2020-10-17] MEDS: RIVAROXABAN 20 MG TAB PO SCH (09:48)
[2020-10-17] MEDS: NEBIVOLOL 5 MG TAB PO SCH (09:48)
[2020-10-17] MEDS: ASPIRIN 81 MG PO SCH (09:48)
[2020-10-17] MEDS: VENLAFAXINE HCL 75 MG TAB PO SCH ×2 (09:49→20:42)
[2020-10-17] MEDS: NON FORMULARY DRUG (Atomoxetine Hcl [Strattera] 40 MG Capsule) PO SCH (09:50)
[2020-10-17] MEDS: NON FORMULARY DRUG (Atomoxetine Hcl [Strattera] 60 MG Capsule) PO SCH (09:51)
[2020-10-17] MEDS: guaiFENesin 600 MG TABLET.ER PO SCH ×2 (09:54→20:41)
--- NOTE | 2020-10-17 09:56 | P.PN ---
Subjective Progress Note Date: 10/17/20 HISTORY OF PRESENT ILLNESS This is a 70 years old male patient of Dr. Polo with past medical history of pulmonary embolism diagnosed in [place] 2 years ago, history of lower extremity DVT, coronary artery disease no stent, history of heart failure unknown if systolic or diastolic, COPD, hyperlipidemia, hypertension, osteoarthritis, prostate cancer, skin disorder,'s obstructive sleep apnea on CPAP, subclavian steal syndrome with stent placement, history of recent penile implant on 07/27/2016. Patient has chronic shortness of breath that has been going on for the past 2 years since the diagnosis of pulmonary embolism with O2 requirements at 2 L nasal cannula Patient is currently on maintenance dose of xarelto at 10 mg daily. He presents emergency room secondary to worsening dyspnea, x 7 days without any medical intervention prior to this, He was seen in the Emergency room for the shortness of breath, worsening dyspnea and exertion, and was found to be SARS cov 2 positive. Chest x-ray, shows bilateral pulmonary interstitial infiltrates compared to old exam, with a similar atelectasis. Poor inspiration, no hilar masses laboratory shows hemoglobin of 12.9, WBC count of 7, creatinine of 1.47, iron of 1.2, glucose 120 CRP 88, pro-calcitonin slightly elevated 0.22. Patient denies any chronic prednisone exposure, Consult were made with pulmonary, Dr. Ramos, pulse oximetry would be 9 PT 1697 at 2-3 L nasal cannula, blood pressure of 129/66. 10/11: Patient was seen for follow-up today, he is a little bit tachypnea, very small amount of labored breathing only on exertion, no conversational dyspnea, O2 at 2 L, sats 95%, no clearance from pulmonary medicine are stable were rounding today, no cough, no pleurisy, no chest pain no palpitations, creatinine at 1.5 today, electrolytes are normal, wbc of 4.7, LDH of 784, ferritin 533 patient is on IV dexamethasone maintained on Xarelto, no new treatment from pulmonary critical care today, currently stable 10/12: A-Team is called during the night due to hypoxia and patient was started on AirVo. Respiratory rate is been in the 40s, heart rate 74, afebrile, pulse ox 96%. Chest x-ray from yesterday revealed patchy. Hilar and basilar infiltrates persist and have progressed slightly in the interval. Repeat blood work reveals WBC 6.8, hemoglobin 12.4, platelet count 135. LDH 1228. C- reactive protein 85.1. The patient has developed increasing difficulty with breathing. He denies having any chest pain. He states he could not sleep through the night. 10/13: Patient states that his breathing status is about the same as yesterday or little bit more difficult. He denies any coughing up blood. He denies any abdominal pain, nausea or vomiting, no diarrhea. Patient remains on Arava with pulse ox of 88-90%. Afebrile, heart rate 69, respiratory rate 40, blood pressure 137/76. Patient is status post 2 doses of Tocilizumab. patient is followed closely by pulmonary medicine. 10/14: Patient is currently on AirVo and nonrebreather but states that he is feeling better today and that his breathing is better. He has been afebrile, heart rate 72, respiratory rate 36, blood pressure 130/70, pulse ox 90%. He denies having abdominal pain, nausea vomiting or diarrhea. He remains on Solu- Medrol 60 mg IV every 6 hours. 10/15: Patient was transferred to the ICU per Dr. Wright. He is currently on AirVo only at time of evaluation and is eating his breakfast. Patient has been maintained on Arava plus nonrebreather. His breathing status appears to be improved from yesterday. His pulse ox is 88%. Afebrile, heart rate 76, respiratory rate 25, blood pressure 131/81. Repeat chest x-ray reveals stable chest. Repeat blood work reveals normal CBC. D-dimer 1.85. C-reactive protein 29. LDH is pending. Ferritin level 1340.6. Patient is scheduled for PICC line insertion today. Lasix 40 mg IV push ordered today by pulmonary medicine. Patient is continued on Solu-Medrol 60 mg every 6 hours. Patient not receiving any antibiotics at this time. 10/16: Patient remains in the intensive care unit. He was off nonrebreather and only on AirVo yesterday most of the day. Now he is on both AirVo and nonrebreather and taking the nonrebreather on and off as he needs it. He is eating 50% of his meals. He has been afebrile, heart rate 69, respiratory rate 34, blood pressure 142/80, pulse ox 88% on both AirVo and nonrebreather. Repeat blood work reveals W BC 13.5, hemoglobin 13.6, platelet count 247. Electrolytes normal. BUN 52 and creatinine 1.2. Blood sugars running between 120 975. Total bilirubin 1.0, AST 111, ALT 137, alkaline phosphatase 80. C-reactive p rotein 16.3, CK 65. Repeat chest x-ray reveals bilateral lower lobe infiltrate and small effusion with coarsened interstitium correlate for venous congestion versus interstitial pneumonia. Patient surprisingly feels his breathing is stable. He has no new complaints. 10/17: Patient remains in intensive care unit. He has been off the nonrebreather for the past hour and a half with only AirVo with pulse ox in the high 80s. He has been afebrile, heart rate in the 70s, blood pressure 142/86, respiratory rate in 30s. Patient verbalizes that his breathing status is improving. Repeat blood work reveals WBC 15.8, hemoglobin 13.7, platelet count 239. Electrolytes normal. BUN 54 and creatinine 1.09. Blood sugars running between 120 765. Total bilirubin 1.5, AST 195, ALT 304, alkaline phosphatase 92, LDH 2785. CK 51, C-reactive protein 11.3. Repeat chest x-ray reveals mild interval pro gression in the lung infiltrates within the right lung. Left lung is stable. No change in small bilateral pleural effusions. REVIEW OF SYSTEMS Constitutional: Denies fever, no chills, no night sweats. No weight change. No weakness, fatigue or lethargy. EENT: No headache. No dizziness. No nasal drainage or congestion. No epistaxis. No sore throat. Lungs: Reports shortness of breathimproving, reports cough, no sputum production. No wheezing. reports dyspnea with exertion. Cardiovascular: No chest pain, no lower extremity edema. No palpitations. No paroxysmal nocturnal dyspnea. No orthopnea. No lightheadedness or dizziness. No syncopal episodes. Abdominal: No abdominal pain. No nausea, vomiting. No diarrhea. No constipation. No bloody or tarry stools.. No loss of appetite. Genitourinary: No dysuria, increased frequency, urgency. No urinary retention. Musculoskeletal: No myalgias. No muscle weakness, no gait dysfunction, no frequent falls. No back pain. No neck pain. Integumentary: No wounds, no lesions. No rash or pruritus. No unusual bruising. No change in hair or nails. Neurologic: No aphasia. No facial droop. No change in mentation. No head injury. No headache. Psychiatric: No depression. No anxiety. No mood swings. Reports insomnia. Endocrine: Noted abnormal blood sugars. No weight change. PHYSICAL EXAMINATION Gen: This is a 70-year-old male. He is resting in ICU bed and appears to be comfortable at rest. Patient is on AirVo only. HEENT: Head is atraumatic, normocephalic. Pupils equal, round. Sclerae is anicteric. NECK: Supple. No JVD. No lymphadenopathy. No thyromegaly. LUNGS: Few scattered rhonchi and scattered expiratory wheezing. Mild intercostal retractions. HEART: Regular rate and rhythm. No murmur. ABDOMEN: Soft. Bowel sounds are present. No masses. No tenderness. EXTREMITIES: No pedal edema. No calf tenderness. Dorsalis pedis palpable bilaterally. NEUROLOGICAL: Patient is awake, alert and oriented x3. Cranial nerves 2 through 12 are grossly intact. ASSESSMENT AND PLAN 1. Acute SARS COV2, infection with acute hypoxic respiratory failure. Continue airflow, pulmonary consult appreciated. Due to cytokine storm and worsening hypoxia, we're going to monitor him for worsening hypoxemia as well as respiratory distress, has history of appropriate for aggressive treatment. Continue Solu-Medrol 60 mg every 6 hours, albuterol inhaler as needed, Symbicort inhaler twice daily, Lasix 40 mg IV daily. Continue vitamin D. Patient is status post 2 doses of Tocilizumab. Incentive spirometry added. 2. Chronic anticoagulation, secondary to history of DVT in the past, long-term anticoagulation using Xarelto, which is maintained 3. History of DVT of the right leg in December 2013, resolved on Lasix 40 mg daily, 4. COPD. Continue albuterol- Atrovent as needed . Continue Symbicort twice daily 5 Hyperlipidemia. Continue Crestor daily. 6 Subclavian steal syndrome status post stent in the right carotid. 7 Benign prostatic hypertrophy. Monitor for urinary retention. Continue Flomax daily 8 History of coronary artery disease with previous myocardial infarction. 9 Obstructive Sleep apnea. Patient to continue his own CPAP machine. 10 Gastroesophageal reflux disease and gastric intestinal prophylaxis. Continue Nexium or equivalent. 11. Hypertension. Continue bystolic 10 mg daily . Hold Lasix and Spiriva lactone. 12. Depression. Continue Cymbalta 150 mg twice daily. 13. History of ADHD. Strattera on hold. 13. Chronic kidney disease stage III, stable 14. History of ischemic cardiomyopathy with prior ejection fraction 40%, Lasix 40 mg daily aspirin 81 mg metoprolol no changes made 15 CODE STATUS full code DISCHARGE PLAN Most likely return home. Impression and plan of care have been directed as dictated by the signing physician. Nena Frausto nurse practitioner acting as scribe for signing physician. Objective - Vital Signs Vital signs: Vital Signs Temp 98.3 F 10/17/20 08:00 Pulse 79 10/17/20 09:00 Resp 35 H 10/17/20 09:00 BP 142/86 10/17/20 09:00 Pulse Ox 84 L 10/17/20 09:00 Intake & Output 10/16/20 10/17/20 10/17/20 18:59 06:59 18:59 Intake Total 300 200 Output Total 1627 1100 200 Balance -1627 -800 0 Weight 119.1 kg Intake: Oral 300 200 Output: Urine 1627 1100 200 Other: Voiding Method Indwelling Catheter Indwelling Catheter Indwelling Catheter - Labs CBC & Chem 7: 10/17/20 04:16 10/17/20 04:16 Labs: Abnormal Lab Results - Last 24 Hours (Table) 10/16/20 10/16/20 10/16/20 Range/Units 04:30 11:36 16:53 WBC (3.8-10.6) k/uL Neutrophils # (1.3-7.7) k/uL Lymphocytes # (1.0-4.8) k/uL D-Dimer (<0.60) mg/L FEU BUN (9-20) mg/dL Glucose (74-99) mg/dL POC Glucose (mg/dL) 165 H 156 H (75-99) mg/dL Ferritin 1517.8 H (22.0-322.0) ng/mL Total Bilirubin (0.2-1.3) mg/dL AST (17-59) U/L ALT (4-49) U/L Lactate Dehydrogenase (313-618) U/L Creatine Kinase (55-170) U/L C-Reactive Protein (<10.0) mg/L 10/16/20 10/17/20 10/17/20 Range/Units 21:08 04:16 04:16 WBC 15.8 H (3.8-10.6) k/uL Neutrophils # 14.3 H (1.3-7.7) k/uL Lymphocytes # 0.4 L (1.0-4.8) k/uL D-Dimer (<0.60) mg/L FEU BUN 54 H (9-20) mg/dL Glucose 127 H (74-99) mg/dL POC Glucose (mg/dL) 165 H (75-99) mg/dL Ferritin (22.0-322.0) ng/mL Total Bilirubin 1.5 H (0.2-1.3) mg/dL AST 195 H (17-59) U/L ALT 304 H (4-49) U/L Lactate Dehydrogenase 2785 H (313-618) U/L Creatine Kinase 51 L (55-170) U/L C-Reactive Protein 11.3 H (<10.0) mg/L 10/17/20 10/17/20 Range/Units 04:16 06:44 WBC (3.8-10.6) k/uL Neutrophils # (1.3-7.7) k/uL Lymphocytes # (1.0-4.8) k/uL D-Dimer 6.88 H (<0.60) mg/L FEU BUN (9-20) mg/dL Glucose (74-99) mg/dL POC Glucose (mg/dL) 129 H (75-99) mg/dL Ferritin (22.0-322.0) ng/mL Total Bilirubin (0.2-1.3) mg/dL AST (17-59) U/L ALT (4-49) U/L Lactate Dehydrogenase (313-618) U/L Creatine Kinase (55-170) U/L C-Reactive Protein (<10.0) mg/L
[2020-10-17 10:34] LABS: Ferritin 2235.7 ng/mL (22.0-322.0)
[2020-10-17 11:09] LABS: Glucose,Whole Blood 146 mg/dL (75-99)
[2020-10-17] MEDS: LORATADINE 10 MG TAB PO SCH (11:11)
[2020-10-17] MEDS: MULTIVITAMINS, THERA 1 EACH TAB PO SCH (11:11)
[2020-10-17] MEDS: CHOLECALCIFEROL 25 MCG (1000 IU) TABLET PO SCH (11:11)
[2020-10-17] MEDS: allopurinoL 300 MG TAB PO SCH (11:11)
[2020-10-17 17:13] LABS: Glucose,Whole Blood 135 mg/dL (75-99)
[2020-10-17 19:39] LABS: LD Isoenzymes 1 17 % (19-38); LD Isoenzymes 2 31 % (30-43); LD Isoenzymes 3 26 % (16-26); LD Isoenzymes 4 14 % (3-12); LD Isoenzymes 5 12 % (3-14); Lactacte Dehydrogenase(LD) ISO 722 U/L (120-250)
[2020-10-17 20:36] LABS: Glucose,Whole Blood 166 mg/dL (75-99)
[2020-10-17] MEDS: MIRTAZAPINE 15 MG TAB PO SCH (20:41)
[2020-10-18] MEDS: methylPREDNISolone SOD SUCCI 125 MG/2 ML VIAL IV SCH ×4 (00:02→18:32)
[2020-10-18] MEDS: NON FORMULARY DRUG (Rosuvastatin 20 MG Tablet) PO SCH ×2 (00:03→21:18)
[2020-10-18 05:58] LABS: Basophils # (A) 0.1 k/uL (0-0.2); Basophils % (A) 1 %; Eosinophils % (A) 0 %; HCT 42.5 % (39.0-53.0); HGB 14.5 gm/dL (13.0-17.5); Lymphocytes # (A) 0.4 k/uL (1.0-4.8); Lymphocytes % (A) 2 %; MCH 31.7 pg (25.0-35.0); MCHC 34.1 g/dL (31.0-37.0); MCV 92.9 fL (80.0-100.0); Mean Platelet Volume 7.5; Monocytes # (A) 0.3 k/uL (0-1.0); Monocytes % (A) 2 %; Neutrophils # (A) 17.2 k/uL (1.3-7.7); Neutrophils % (A) 94 %; Platelet Count 255 k/uL (150-450); RBC 4.58 m/uL (4.30-5.90); RDW 14.2 % (11.5-15.5); WBC 18.4 k/uL (3.8-10.6)
[2020-10-18 06:11] LABS: Potassium 4.3 mmol/L (3.5-5.1)
[2020-10-18 06:14] LABS: Albumin 3.7 g/dL (3.5-5.0); C Reactive Protein 5.9 mg/L (<10.0); Calcium 8.7 mg/dL (8.4-10.2); Total Bilirubin 1.7 mg/dL (0.2-1.3); Total Protein 6.8 g/dL (6.3-8.2)
[2020-10-18] MEDS: INSULIN ASPART (NovoLOG) 100 UNIT/ML VIAL SQ SCH ×4 (06:40→21:15)
[2020-10-18 06:47] LABS: Glucose,Whole Blood 126 mg/dL (75-99)
--- NOTE | 2020-10-18 07:34 | XR ---
EXAMINATION TYPE: XR chest 1V portable DATE OF EXAM: 10/18/2020 HISTORY: Shortness of breath. COMPARISON: 10/17/2020 TECHNIQUE: Single view of the chest is submitted. FINDINGS: Demonstrated are scattered senescent parenchymal change. Left perihilar and basilar infiltrates persist. The heart is stable. Hilar and mediastinal structures are within normal limits. Degenerative changes are seen of the dorsal spine. IMPRESSION: 1. Left perihilar and basilar infiltrates persist.
[2020-10-18] MEDS: SYMBICORT 160-4.5 MCG INHALER INHALATION SCH ×2 (08:30→21:03)
[2020-10-18] MEDS: ALBUTEROL HFA INHALER INHALATION PRN ×4 (08:30→21:01)
[2020-10-18] MEDS: TIOTROPIUM 2.5 MCG INHALER INHALATION SCH (08:30)
[2020-10-18] MEDS: NON FORMULARY DRUG (Atomoxetine Hcl [Strattera] 60 MG Capsule) PO SCH (08:38)
[2020-10-18] MEDS: NON FORMULARY DRUG (Atomoxetine Hcl [Strattera] 40 MG Capsule) PO SCH (08:38)
[2020-10-18] MEDS: METOPROLOL SUCCINATE (ER) 25 MG TAB.ER.24H PO SCH (08:38)
[2020-10-18] MEDS: levETIRAcetam 500 MG TAB PO SCH ×2 (08:38→21:15)
[2020-10-18] MEDS: PANTOPRAZOLE 40 MG TABLET PO SCH (08:39)
[2020-10-18] MEDS: NEBIVOLOL 5 MG TAB PO SCH (08:39)
[2020-10-18] MEDS: ASPIRIN 81 MG PO SCH (08:39)
[2020-10-18] MEDS: RIVAROXABAN 20 MG TAB PO SCH (08:39)
[2020-10-18] MEDS: guaiFENesin 600 MG TABLET.ER PO SCH ×2 (08:39→21:15)
--- NOTE | 2020-10-18 09:10 | P.PN ---
Subjective Progress Note Date: 10/18/20 This is a pleasant 70-year-old gentleman follows with Dr. Polo as his primary care provider. He has a history of coronary artery disease, peripheral vascular disease, congestive heart failure, hyperlipidemia, hypertension, PE/DVT, obstructive sleep apnea utilizing CPAP, chronic obstructive pulmonary disease on home oxygen at 2 L/m per nasal cannula. The patient is a 1 week history of increasing shortness of breath, nausea, vomiting, diarrhea, weakness and was seen at [facility] and tested positive for CoVID and was instructed to go to the emergency room. Chest x-ray reveals mild bilateral pulmonary interstitial infiltrates. He is seen today in consultation on the selective care unit. He is currently sitting up in bed. Awake and alert in no acute distress. He is maintaining good O2 saturations in the mid 90s on 2 L/m per nasal cannula. He is afebrile. Hemodynamically stable. White count 4.7. Hemoglobin 12.9. Platelet count 116. Lymphocytes 0.7. D-dimer 0.18. Sodium 139. Potassium 4.3. Creatinine 1.51. LDH 784. C-reactive protein 88.5. Pro Calcitonin 0.22. He's been initiated on Symbicort, albuterol. Endocrine related with Xarelto. On dexamethasone, multivitamin. The patient is seen today 10/11/2020 in follow-up on the selective care unit. He is currently sitting up in bed. Awake and alert in no acute distress. He is requiring 3 L nasal cannula to maintain O2 saturations 88% and higher. He is normally on 2 L at home. He denies any worsening shortness of breath. He continues with a loose nonproductive cough. He is maintained on dexamethasone, vitamin supplements. Anticoagulated with Xarelto. 10/12/2020 the patient is being seen in follow-up in the selective units. The patient has been diagnosed having Covid 19 related pneumonia. The patient is 70 years old and he is known to have coronary artery disease, peripheral vascular disease, congestive heart failure, hyperlipidemia, hypertension, PE/DVT, obstructive sleep apnea utilizing CPAP, chronic obstructive pulmonary disease on home oxygen at 2 L/m per nasal cannula. The patient is currently maintained on dexamethasone, vitamin supplements. Anticoagulated with Xarelto. The pat ient's pulmonary status overnight decompensated. The patient had the replacement high flow oxygen at 60 L with an FiO2 of 60%. Chest x-ray showed diffuse bilateral pulmonary infiltrates, mostly peripheral, consistent with Covid 19 pneumonia, probably there is some interval worsening. The patient has bilateral shoulder replacement. The blood gases from yesterday showed a pH of 7.45 with a pCO2 of 38 and pO2 of 63. His inflammatory markers from today are elevated. LDH level is up to 1228 and a CRP level is up to 85. Need 2020, the patient is still on high flow oxygen at 60 L with an FiO2 of 55%. Based on the significant drop in oxygenation, which The patient on steroids and the patient is currently on Decadron and we added Toci 400 mg and the patient received only 1 dose. He is going to receive his second dose of 400 mg today. Patient's oxygenation is stable. D-dimer is down at 0.33. His LDH level is at 1228 and the CRP is at 85. The chest x-ray from yesterday showed bilateral patchy pulmonary infiltrates. The patient has approximately 2 fibrillation and is maintained on Xarelto. The patient also is known to have coronary artery disease, peripheral vascular disease, congestive heart failure, hyperlipidemia, hypertension, PE/DVT, obstructive sleep apnea utilizing CPAP, chronic obstructive pulmonary disease on home oxygen at 2 L/m per nasal cannula. On 10/14/2020, the patient is gradually getting worse. He was desaturating despite being on high flow oxygen at 60 L and an FiO2 of 90% and he is also utilizing 100% nonrebreather facemask. Note that this patient has been treated aggressively. He received Decadron. He also received 2 doses of Tocilizumab. . The patient had a d-dimer of 1.06 and the rest of the inflammatory markers are still pending for now. Meanwhile, his labs are essentially within normal limits and his creatinine is down to 1.2. He remains on Decadron 6 mg IV every 24 hours. He is also on long-term antibiotic ventilation with Xarelto 20 mg by mouth daily. Note that the patient has previous history of DVT and pulmonary embolism. He has obstructive sleep apnea and he has COPD and is maintained on oxygen at 2 L per minute at home for chronic hypoxic respiratory failure. He has hypertension and hyperlipidemia congestion heart failure and peripheral vascular disease in addition to CABG as comorbid conditions. His last chest x- ray was from 09/14/2020 and a repeat chest x-ray will be ordered. His last chest x-ray showed diffuse breath and pulmonary infiltrates, mainly the peripheries consistent with Covid 19 related pneumonia. 10/15/2020, the patient is currently in the intensive care unit. Just like yesterday, he remains on high flow oxygen 6 L with an FiO2 of 90% and the patient is also utilizing 100% nonrebreather facemask. His current pulse ox is around 91%. He is comfortable. Is at the rate is in the low 30s. His chest x- ray from today showing stable bilateral pulmonary infiltrates without any major interval change compared to yesterday. His blood work from today shows no electrolyte abnormalities, creatinine stable at 1.2. His inflammatory markers are still pending. CRP is down to 29, LDH is pending for now. The d-dimer is at 1.85. In terms of therapy, and he is on IV Solu-Medrol 60 mg every 6 hours is also on multivitamins and he remains on long-term anticoagulation with Xarelto. He is lethargic. Oral intake is quite diminished at this point in time. No altered mentation. Is able to follow commands appropriately. He is weak. He is known to have COPD, previous bypass, hypertension and hyperlipidemia and peripheral vascular disease. He is also known to have CHF. He does have a remote history of DVT and pulmonary embolism. He remains in the ICU for now. He got transferred to the ICU yesterday because of ongoing difficulties with shortness of breath and hypoxemia. His echocardiogram from 2018 was essentially within normal limits and he had a normal ejection fraction. 10/16/2020, Rayo is on 60 L of oxygen along with an FiO2 of 90% and the patient is on 100% nonrebreather facemask. He is quite comfortable. He takes of his main for feeding purposes. During this time, he desaturates and is relatively asymptomatic while he desaturates. He goes down to the 80s and he recovers. He is not tachypneic. He is resting comfortably in bed. In terms of treatment, the patient remains on IV Solu Medrol 60 mg every 6 hours. He is on long-term anticoagulation with Xarelto. His chest x-ray from today is reviewed and is showing some limited improvement in the bilateral interstitial infiltrates seen earlier. In terms of his inflammatory markers, his LDH from yesterday and today has not been checked. His last LDH level was on 10/14/2020 was 1797. His CRP level has dropped down to 16.3. His d-dimer level is at 4.08. As mentioned, the patient is on anticoagulation and he is on Xarelto. He is also on Lasix and he is receiving Lasix 40 mg IV every 24 hours. Neck fluid balance over the past 24 hours has been -2.2 L and is responding nicely to diuretics and his weight is declined. No other significant issues. No altered mentation. No agitation. No confusion. No nausea. No vomiting. No diarrhea. No abdominal pain. No chest pain. He is known to have CAD, previous bypass, hypertension and hyperlipidemia and peripheral vascular disease. He also has history of DVT and pulmonary embolism remains on anticoagulation. 10/17/2020, the patient is on high flow oxygen at 60 L along with FiO2 of 90%. Chest x-ray showing infiltrates mainly on the left compared to the right. Lung volumes are essentially small. No major interval change compared to yesterday, the right lung is obviously better compared to the chest x-ray yesterday. In terms of his clinical status, the patient is feeling that he is less short of breath compared to yesterday. He has occasional cough. No chest pain. He is able to get rid of his 100% nonrebreather facemask and tolerate his diet. He is taking approximately 50% of his diet provided. He remains on IV Solu-Medrol. He remains on long-term articulation with Xarelto. LDH and CRP are being monitored. The levels were quite elevated and the LDH today's 2785 and the CRP is 11.3. The BUN is a 54 with a creatinine of 1.09. Electrolytes are normal, d-dimer is at 6.88, and the CBC showing a white cell count of 15.8 with a hemoglobin of 13.7. No confusion. No altered mentation. Fluid balance is in order of -2.4 L. He is getting Lasix 40 mg IV every 24 hours. No other significant events overnight A 2020 the patient is being seen for a follow-up. Currently he is on a combination of high flow oxygen 6 L with an FiO2 of 90% and the same time the patient is on a nonrebreather facemask 100%. Pulse ox is currently ranging between 80% up to 88% and it fluctuates. Overnight, he became slightly more restless and agitated. He pulled on his masks and he became briefly hypoxic and had to be placed again. As stated, his overall respiratory status quite borderline. He is a case of Covid 19 related pneumonia. On IV Solu-Medrol 60 mg every 6 hours. In terms of his inflammatory markers today, the patient's LDH level is up to 3174 and his CRP level is also at 5.9. D-dimer is at 11.45. He is on anticoagulation and is receiving Xarelto on a daily basis . His chest x- ray is showing limited by system place, change compared to yesterday. On examination, he has adequate air entry bilaterally. His fluid balance over the past 24 hours has been in the order of -2.4 L and the patient is diuresing adequately. His body weight is also on the decline. His blood work today shows a BUN of 54 with a creatinine of 1.09 and the sodium level is at 139. His white cell count 15.8 with hemoglobin 13.7 and a adequate platelet count of 239. No other significant events otherwise for now. Active issue remains is ongoing respiratory insufficiency and high oxygen requirements. Objective - Vital Signs Vital signs: Vital Signs Temp 98.2 F 10/18/20 04:00 Pulse 73 10/18/20 07:00 Resp 34 H 10/18/20 07:00 BP 136/90 10/18/20 07:00 Pulse Ox 84 L 10/18/20 08:29 Intake & Output 10/17/20 10/18/20 10/18/20 18:59 06:59 18:59 Intake Total 1100 250 100 Output Total 1625 950 50 Balance -525 -700 50 Weight 114.8 kg Intake: Oral 1100 250 100 Output: Urine 1625 950 50 Other: Voiding Method Indwelling Catheter Indwelling Catheter - Exam GENERAL EXAM: Alert, pleasant 70-year-old gentleman, on 60L nasal cannula, comfortable in no apparent distress. Vital FiO2 of 90% and he is also using 100% nonrebreather facemask. His current pulse ox is at 90%. HEAD: Normocephalic. EYES: Normal reaction of pupils, equal size. NOSE: Clear with pink turbinates. THROAT: No erythema or exudates. NECK: No masses, no JVD. CHEST: No chest wall deformity. LUNGS: Equal air entry with few scattered rhonchi, crackles in the bases. CVS: S1 and S2 normal with no audible murmur, regular rhythm. ABDOMEN: No hepatosplenomegaly, normal bowel sounds, no guarding or rigidity. SPINE: No scoliosis or deformity SKIN: No rashes CENTRAL NERVOUS SYSTEM: No focal deficits, tone is normal in all 4 extremities. EXTREMITIES: There is no peripheral edema. No clubbing, no cyanosis. Peripheral pulses are intact. - Labs CBC & Chem 7: 10/18/20 04:58 10/18/20 04:58 Labs: Abnormal Lab Results - Last 24 Hours (Table) 10/15/20 10/17/20 10/17/20 Range/Units 04:35 04:16 11:08 WBC (3.8-10.6) k/uL Neutrophils # (1.3-7.7) k/uL Lymphocytes # (1.0-4.8) k/uL D-Dimer (<0.60) mg/L FEU BUN (9-20) mg/dL Glucose (74-99) mg/dL POC Glucose (mg/dL) 146 H (75-99) mg/dL Ferritin 2235.7 H (22.0-322.0) ng/mL Total Bilirubin (0.2-1.3) mg/dL AST (17-59) U/L ALT (4-49) U/L Lactate Dehydrogenase (313-618) U/L LD Isoenzymes 722 H (120-250) U/L LD 1 17 L (19-38) % LD 4 14 H (3-12) % 10/17/20 10/17/20 10/18/20 Range/Units 17:11 20:34 04:58 WBC 18.4 H (3.8-10.6) k/uL Neutrophils # 17.2 H (1.3-7.7) k/uL Lymphocytes # 0.4 L (1.0-4.8) k/uL D-Dimer (<0.60) mg/L FEU BUN (9-20) mg/dL Glucose (74-99) mg/dL POC Glucose (mg/dL) 135 H 166 H (75-99) mg/dL Ferritin (22.0-322.0) ng/mL Total Bilirubin (0.2-1.3) mg/dL AST (17-59) U/L ALT (4-49) U/L Lactate Dehydrogenase (313-618) U/L LD Isoenzymes (120-250) U/L LD 1 (19-38) % LD 4 (3-12) % 10/18/20 10/18/20 10/18/20 Range/Units 04:58 04:58 06:36 WBC (3.8-10.6) k/uL Neutrophils # (1.3-7.7) k/uL Lymphocytes # (1.0-4.8) k/uL D-Dimer 11.45 H (<0.60) mg/L FEU BUN 59 H (9-20) mg/dL Glucose 136 H (74-99) mg/dL POC Glucose (mg/dL) 126 H (75-99) mg/dL Ferritin (22.0-322.0) ng/mL Total Bilirubin 1.7 H (0.2-1.3) mg/dL AST 128 H (17-59) U/L ALT 309 H (4-49) U/L Lactate Dehydrogenase 3174 H (313-618) U/L LD Isoenzymes (120-250) U/L LD 1 (19-38) % LD 4 (3-12) % Assessment and Plan Plan: 1 Acute on chronic hypoxic respiratory failure secondary to acute CoVID 19 pneumonia the patient remains on high flow oxygen at 60 L with an FiO2 of 90% in addition to that he is using 100% nonrebreather facemask. -The patient is on IV Solu-Medrol -The patient has post Tocilizumab x2, no Remdesivir -currently on 60 L of oxygen by nasal cannula with an FiO2 of 90% and he is also on 100% nonrebreather facemask - anticoagulation with Xarelto. -Chest x-ray findings are stable -Inflammatory markers on the rise 2 acute hypoxic respiratory failure secondary to above. Note that the patient has chronic hypoxic respiratory failure on 2 L of oxygen by nasal cannula. 3 Acute on chronic renal failure him a recovered and the creatinine is stable for now the patient has been negative fluid balance on Lasix 4 Chronic hypoxic respiratory failure secondary to chronic obstructive pulmonary disease on home O2 at 2 L/m 5 Former smoker 6 History of coronary disease 7 Hyperlipidemia 8 Hypertension 9 History of PE/DVT anticoagulate with Xarelto 10 History of depression 11 Obstructive sleep apnea utilizing CPAP 12 History of peripheral vascular disease 13 BPH Plan: Keep the patient on 60 L by nasal cannula. He is on an FiO2 of 90% and the patient is also utilizing a 100% nonrebreather facemask. Inflammatory markers are quite elevated including LDH and d-dimer IV Solu-Medrol 60 mg every 6 hours. Already received Tocilizumab x2 . A repeat chest x-ray from today stable He is currently on Xarelto and the d-dimer is mildly elevated. Lasix to be stopped The patient is on no IV fluids for now. Oral intake in diet PICC line was inserted Condition is critical We will continue to follow , keep the patient in ICU for now.
[2020-10-18 09:56] LABS: Ferritin 1817.5 ng/mL (22.0-322.0)
[2020-10-18] MEDS: CHOLECALCIFEROL 25 MCG (1000 IU) TABLET PO SCH (10:38)
[2020-10-18] MEDS: VENLAFAXINE HCL 75 MG TAB PO SCH ×2 (10:39→21:15)
[2020-10-18] MEDS: allopurinoL 300 MG TAB PO SCH (10:39)
[2020-10-18] MEDS: FUROSEMIDE 10 MG/ML 4 ML VIAL IV SCH (10:39)
[2020-10-18] MEDS: MULTIVITAMINS, THERA 1 EACH TAB PO SCH (10:39)
[2020-10-18] MEDS: LORATADINE 10 MG TAB PO SCH (10:39)
--- NOTE | 2020-10-18 10:50 | P.PN ---
Subjective Progress Note Date: 10/18/20 HISTORY OF PRESENT ILLNESS This is a 70 years old male patient of Dr. Polo with past medical history of pulmonary embolism diagnosed in [place] 2 years ago, history of lower extremity DVT, coronary artery disease no stent, history of heart failure unknown if systolic or diastolic, COPD, hyperlipidemia, hypertension, osteoarthritis, prostate cancer, skin disorder,'s obstructive sleep apnea on CPAP, subclavian steal syndrome with stent placement, history of recent penile implant on 07/27/2016. Patient has chronic shortness of breath that has been going on for the past 2 years since the diagnosis of pulmonary embolism with O2 requirements at 2 L nasal cannula Patient is currently on maintenance dose of xarelto at 10 mg daily. He presents emergency room secondary to worsening dyspnea, x 7 days without any medical intervention prior to this, He was seen in the Emergency room for the shortness of breath, worsening dyspnea and exertion, and was found to be SARS cov 2 positive. Chest x-ray, shows bilateral pulmonary interstitial infiltrates compared to old exam, with a similar atelectasis. Poor inspiration, no hilar masses laboratory shows hemoglobin of 12.9, WBC count of 7, creatinine of 1.47, iron of 1.2, glucose 120 CRP 88, pro-calcitonin slightly elevated 0.22. Patient denies any chronic prednisone exposure, Consult were made with pulmonary, Dr. Ramos, pulse oximetry would be 9 PT 1697 at 2-3 L nasal cannula, blood pressure of 129/66. 10/11: Patient was seen for follow-up today, he is a little bit tachypnea, very small amount of labored breathing only on exertion, no conversational dyspnea, O2 at 2 L, sats 95%, no clearance from pulmonary medicine are stable were rounding today, no cough, no pleurisy, no chest pain no palpitations, creatinine at 1.5 today, electrolytes are normal, wbc of 4.7, LDH of 784, ferritin 533 patient is on IV dexamethasone maintained on Xarelto, no new treatment from pulmonary critical care today, currently stable 10/12: A-Team is called during the night due to hypoxia and patient was started on AirVo. Respiratory rate is been in the 40s, heart rate 74, afebrile, pulse ox 96%. Chest x-ray from yesterday revealed patchy. Hilar and basilar infiltrates persist and have progressed slightly in the interval. Repeat blood work reveals WBC 6.8, hemoglobin 12.4, platelet count 135. LDH 1228. C- reactive protein 85.1. The patient has developed increasing difficulty with breathing. He denies having any chest pain. He states he could not sleep through the night. 10/13: Patient states that his breathing status is about the same as yesterday or little bit more difficult. He denies any coughing up blood. He denies any abdominal pain, nausea or vomiting, no diarrhea. Patient remains on Arava with pulse ox of 88-90%. Afebrile, heart rate 69, respiratory rate 40, blood pressure 137/76. Patient is status post 2 doses of Tocilizumab. patient is followed closely by pulmonary medicine. 10/14: Patient is currently on AirVo and nonrebreather but states that he is feeling better today and that his breathing is better. He has been afebrile, heart rate 72, respiratory rate 36, blood pressure 130/70, pulse ox 90%. He denies having abdominal pain, nausea vomiting or diarrhea. He remains on Solu- Medrol 60 mg IV every 6 hours. 10/15: Patient was transferred to the ICU per Dr. Wright. He is currently on AirVo only at time of evaluation and is eating his breakfast. Patient has been maintained on Arava plus nonrebreather. His breathing status appears to be improved from yesterday. His pulse ox is 88%. Afebrile, heart rate 76, respiratory rate 25, blood pressure 131/81. Repeat chest x-ray reveals stable chest. Repeat blood work reveals normal CBC. D-dimer 1.85. C-reactive protein 29. LDH is pending. Ferritin level 1340.6. Patient is scheduled for PICC line insertion today. Lasix 40 mg IV push ordered today by pulmonary medicine. Patient is continued on Solu-Medrol 60 mg every 6 hours. Patient not receiving any antibiotics at this time. 10/16: Patient remains in the intensive care unit. He was off nonrebreather and only on AirVo yesterday most of the day. Now he is on both AirVo and nonrebreather and taking the nonrebreather on and off as he needs it. He is eating 50% of his meals. He has been afebrile, heart rate 69, respiratory rate 34, blood pressure 142/80, pulse ox 88% on both AirVo and nonrebreather. Repeat blood work reveals W BC 13.5, hemoglobin 13.6, platelet count 247. Electrolytes normal. BUN 52 and creatinine 1.2. Blood sugars running between 120 975. Total bilirubin 1.0, AST 111, ALT 137, alkaline phosphatase 80. C-reactive p rotein 16.3, CK 65. Repeat chest x-ray reveals bilateral lower lobe infiltrate and small effusion with coarsened interstitium correlate for venous congestion versus interstitial pneumonia. Patient surprisingly feels his breathing is stable. He has no new complaints. 10/17: Patient remains in intensive care unit. He has been off the nonrebreather for the past hour and a half with only AirVo with pulse ox in the high 80s. He has been afebrile, heart rate in the 70s, blood pressure 142/86, respiratory rate in 30s. Patient verbalizes that his breathing status is improving. Repeat blood work reveals WBC 15.8, hemoglobin 13.7, platelet count 239. Electrolytes normal. BUN 54 and creatinine 1.09. Blood sugars running between 120 765. Total bilirubin 1.5, AST 195, ALT 304, alkaline phosphatase 92, LDH 2785. CK 51, C-reactive protein 11.3. Repeat chest x-ray reveals mild interval pro gression in the lung infiltrates within the right lung. Left lung is stable. No change in small bilateral pleural effusions. 10/18: Patient remains in intensive care unit. He is seen today on AirVo and nonrebreather and pulse ox has been marginal in the low to mid 80s. Heart rate is in the 70s, respiratory rate in the 30s, blood pressure 136/87. He has been afebrile. Repeat blood work reveals WBC 18.4. Electrolytes normal, BUN 59 and creatinine 1.03. Blood sugars running between 126 and 166. Ferritin level 1817. D-dimer 11.45. Total bilirubin 1.7, AST 128, ALT 309, alkaline phosphat ase 121. LDH 3174. CK 98, C-reactive protein 5.9. Repeat chest x-ray reveals left perihilar and basilar infiltrates persist REVIEW OF SYSTEMS Constitutional: Denies fever, no chills, no night sweats. Generalized weakness, fatigue. EENT: No headache. No dizziness. No nasal drainage or congestion. No epistaxis. No sore throat. Lungs: Reports shortness of breathimproving, reports cough, no sputum production. No wheezing. reports dyspnea with exertion. Cardiovascular: No chest pain, no lower extremity edema. No palpitations. No paroxysmal nocturnal dyspnea. No orthopnea. No lightheadedness or dizziness. No syncopal episodes. Abdominal: No abdominal pain. No nausea, vomiting. No diarrhea. No constipation. No bloody or tarry stools.. No loss of appetite. Genitourinary: No dysuria, increased frequency, urgency. No urinary retention. Musculoskeletal: No myalgias. No muscle weakness, no gait dysfunction, no frequent falls. No back pain. No neck pain. Integumentary: No wounds, no lesions. No rash or pruritus. No unusual bruising. No change in hair or nails. Neurologic: No aphasia. No facial droop. No change in mentation. No head injury. No headache. Psychiatric: No depression. No anxiety. No mood swings. Reports insomnia. Endocrine: Noted abnormal blood sugars. No weight change. PHYSICAL EXAMINATION Gen: This is a 70-year-old male. He is resting in ICU bed and appears to be comfortable at rest. Patient is on AirVo and nonrebreather. HEENT: Head is atraumatic, normocephalic. Pupils equal, round. Sclerae is anicteric. NECK: Supple. No JVD. No lymphadenopathy. No thyromegaly. LUNGS: Few scattered rhonchi and scattered expiratory wheezing. Mild intercostal retractions. HEART: Regular rate and rhythm. No murmur. ABDOMEN: Soft. Bowel sounds are present. No masses. No tenderness. EXTREMITIES: No pedal edema. No calf tenderness. Dorsalis pedis palpable bilaterally. NEUROLOGICAL: Patient is awake, alert and oriented x3. Cranial nerves 2 through 12 are grossly intact. ASSESSMENT AND PLAN 1. Acute SARS COV2, infection with acute hypoxic respiratory failure. Continue airflow, pulmonary consult appreciated. Due to cytokine storm and worsening hypoxia, we're going to monitor him for worsening hypoxemia as well as respiratory distress, has history of appropriate for aggressive treatment. Continue Solu-Medrol 60 mg every 6 hours, albuterol inhaler as needed, Symbicort inhaler twice daily, Lasix 40 mg IV daily. Continue vitamin D. Patient is st atus post 2 doses of Tocilizumab. Incentive spirometry. 2. Chronic anticoagulation, secondary to history of DVT in the past, long-term anticoagulation using Xarelto, which is maintained 3. History of DVT of the right leg in December 2013, resolved on Lasix 40 mg daily, 4. COPD. Continue albuterol- Atrovent as needed . Continue Symbicort twice daily 5 Hyperlipidemia. Continue Crestor daily. 6 Subclavian steal syndrome status post stent in the right carotid. 7 Benign prostatic hypertrophy. Monitor for urinary retention. Continue Flomax daily 8 History of coronary artery disease with previous myocardial infarction. 9 Obstructive Sleep apnea. Patient to continue his own CPAP machine. 10 Gastroesophageal reflux disease and gastric intestinal prophylaxis. Continue Nexium or equivalent. 11. Hypertension. Continue bystolic 10 mg daily . Hold Lasix and Spiriva lactone. 12. Depression. Continue Cymbalta 150 mg twice daily. 13. History of ADHD. Strattera on hold. 13. Chronic kidney disease stage III, stable 14. History of ischemic cardiomyopathy with prior ejection fraction 40%, Lasix 40 mg daily aspirin 81 mg metoprolol no changes made 15 CODE STATUS full code DISCHARGE PLAN Most likely return home. Impression and plan of care have been directed as dictated by the signing physician. Nena Frausto nurse practitioner acting as scribe for signing physician. Objective - Vital Signs Vital signs: Vital Signs Temp 98.2 F 10/18/20 04:00 Pulse 73 10/18/20 07:00 Resp 34 H 10/18/20 07:00 BP 136/90 10/18/20 07:00 Pulse Ox 84 L 10/18/20 08:29 Intake & Output 10/17/20 10/18/20 10/18/20 18:59 06:59 18:59 Intake Total 1100 250 100 Output Total 1625 950 50 Balance -525 -700 50 Weight 114.8 kg Intake: Oral 1100 250 100 Output: Urine 1625 950 50 Other: Voiding Method Indwelling Catheter Indwelling Catheter - Labs CBC & Chem 7: 10/18/20 04:58 10/18/20 04:58 Labs: Abnormal Lab Results - Last 24 Hours (Table) 10/15/20 10/17/20 10/17/20 Range/Units 04:35 04:16 11:08 WBC (3.8-10.6) k/uL Neutrophils # (1.3-7.7) k/uL Lymphocytes # (1.0-4.8) k/uL D-Dimer (<0.60) mg/L FEU BUN (9-20) mg/dL Glucose (74-99) mg/dL POC Glucose (mg/dL) 146 H (75-99) mg/dL Ferritin 2235.7 H (22.0-322.0) ng/mL Total Bilirubin (0.2-1.3) mg/dL AST (17-59) U/L ALT (4-49) U/L Lactate Dehydrogenase (313-618) U/L LD Isoenzymes 722 H (120-250) U/L LD 1 17 L (19-38) % LD 4 14 H (3-12) % 10/17/20 10/17/20 10/18/20 Range/Units 17:11 20:34 04:58 WBC 18.4 H (3.8-10.6) k/uL Neutrophils # 17.2 H (1.3-7.7) k/uL Lymphocytes # 0.4 L (1.0-4.8) k/uL D-Dimer (<0.60) mg/L FEU BUN (9-20) mg/dL Glucose (74-99) mg/dL POC Glucose (mg/dL) 135 H 166 H (75-99) mg/dL Ferritin (22.0-322.0) ng/mL Total Bilirubin (0.2-1.3) mg/dL AST (17-59) U/L ALT (4-49) U/L Lactate Dehydrogenase (313-618) U/L LD Isoenzymes (120-250) U/L LD 1 (19-38) % LD 4 (3-12) % 10/18/20 10/18/20 10/18/20 Range/Units 04:58 04:58 06:36 WBC (3.8-10.6) k/uL Neutrophils # (1.3-7.7) k/uL Lymphocytes # (1.0-4.8) k/uL D-Dimer 11.45 H (<0.60) mg/L FEU BUN 59 H (9-20) mg/dL Glucose 136 H (74-99) mg/dL POC Glucose (mg/dL) 126 H (75-99) mg/dL Ferritin (22.0-322.0) ng/mL Total Bilirubin 1.7 H (0.2-1.3) mg/dL AST 128 H (17-59) U/L ALT 309 H (4-49) U/L Lactate Dehydrogenase 3174 H (313-618) U/L LD Isoenzymes (120-250) U/L LD 1 (19-38) % LD 4 (3-12) %
[2020-10-18 12:59] LABS: Glucose,Whole Blood 125 mg/dL (75-99)
[2020-10-18 16:10] LABS: Glucose,Whole Blood 155 mg/dL (75-99)
[2020-10-18 20:24] LABS: Glucose,Whole Blood 197 mg/dL (75-99)
[2020-10-18] MEDS: MIRTAZAPINE 15 MG TAB PO SCH (21:15)
[2020-10-19] MEDS: methylPREDNISolone SOD SUCCI 125 MG/2 ML VIAL IV SCH ×5 (00:34→23:56)
[2020-10-19 04:36] LABS: HGB 14.1 gm/dL (13.0-17.5); MCH 31.4 pg (25.0-35.0); MCHC 33.5 g/dL (31.0-37.0); MCV 93.8 fL (80.0-100.0); Mean Platelet Volume 7.5; Platelet Count 247 k/uL (150-450); RBC 4.48 m/uL (4.30-5.90); RDW 14.4 % (11.5-15.5); WBC 19.1 k/uL (3.8-10.6)
[2020-10-19 05:29] LABS: Albumin 3.7 g/dL (3.5-5.0); C Reactive Protein 5.4 mg/L (<10.0); Calcium 8.7 mg/dL (8.4-10.2); Potassium 4.4 mmol/L (3.5-5.1); Total Bilirubin 1.7 mg/dL (0.2-1.3); Total Protein 6.7 g/dL (6.3-8.2)
[2020-10-19] MEDS: INSULIN ASPART (NovoLOG) 100 UNIT/ML VIAL SQ SCH ×4 (06:47→20:30)
[2020-10-19 06:48] LABS: Glucose,Whole Blood 124 mg/dL (75-99)
[2020-10-19] MEDS: ALBUTEROL HFA INHALER INHALATION PRN ×4 (07:34→23:26)
[2020-10-19] MEDS: TIOTROPIUM 2.5 MCG INHALER INHALATION SCH (07:34)
[2020-10-19] MEDS: SYMBICORT 160-4.5 MCG INHALER INHALATION SCH ×2 (07:34→20:50)
--- NOTE | 2020-10-19 07:44 | XR ---
EXAMINATION TYPE: XR chest 1V portable DATE OF EXAM: 10/19/2020 Comparison: 10/18/2020 Clinical History: 70-year-old male COVID Findings: Partially visualized are shoulder arthroplasties on both sides. Vascular stent at the right apex. Lef t PICC tip not well seen, suspected to be just to the left of midline probably in the left brachiocep halic vein. Heart normal size. Multiple fine curvilinear densities project over the left hemithorax. One of these extends beyond the thoracic margin suggesting external artifact. Attention on short inte rval follow-up. Increased interstitial opacification persists. Patchy peripheral right basilar opacit y and increasing patchy density throughout the left lung. Impression: 1. Similar diffuse interstitial infiltrate, similar patchy right basilar opacity, and slight increasi ng opacity throughout the left lung. 2. Multiple fine curvilinear densities projecting over the left hemithorax suspected external artifac t. Reassess at short interval follow-up.
[2020-10-19] MEDS: NON FORMULARY DRUG (Atomoxetine Hcl [Strattera] 40 MG Capsule) PO SCH (08:47)
[2020-10-19] MEDS: NON FORMULARY DRUG (Atomoxetine Hcl [Strattera] 60 MG Capsule) PO SCH (08:47)
[2020-10-19] MEDS: MULTIVITAMINS, THERA 1 EACH TAB PO SCH (09:05)
[2020-10-19] MEDS: allopurinoL 300 MG TAB PO SCH (09:05)
[2020-10-19] MEDS: VENLAFAXINE HCL 75 MG TAB PO SCH ×2 (09:05→20:29)
[2020-10-19] MEDS: NEBIVOLOL 5 MG TAB PO SCH (09:05)
[2020-10-19] MEDS: levETIRAcetam 500 MG TAB PO SCH ×2 (09:05→20:29)
[2020-10-19] MEDS: PANTOPRAZOLE 40 MG TABLET PO SCH (09:05)
[2020-10-19] MEDS: LORATADINE 10 MG TAB PO SCH (09:05)
[2020-10-19] MEDS: ASPIRIN 81 MG PO SCH (09:05)
[2020-10-19] MEDS: FUROSEMIDE 10 MG/ML 4 ML VIAL IV SCH (09:05)
[2020-10-19] MEDS: RIVAROXABAN 20 MG TAB PO SCH (09:05)
[2020-10-19] MEDS: guaiFENesin 600 MG TABLET.ER PO SCH ×2 (09:05→20:29)
[2020-10-19] MEDS: METOPROLOL SUCCINATE (ER) 25 MG TAB.ER.24H PO SCH (09:05)
[2020-10-19] MEDS: CHOLECALCIFEROL 25 MCG (1000 IU) TABLET PO SCH (09:06)
--- NOTE | 2020-10-19 10:14 | XR ---
EXAMINATION TYPE: XR chest 1V portable DATE OF EXAM: 10/19/2020 Comparison: Earlier today Clinical History: 70-year-old male shortness of breath Findings: Partially visualized reverse total shoulder arthroplasties. A vascular stent projects over the right apex. Left PICC tip in the left brachiocephalic vein. Heart upper limits of normal in size. Interstit ial and patchy opacities persist without significant change. No appreciable pneumothorax. Old left-si ded rib fracture deformities. Impression: 1. No pneumothorax. Findings on the exam earlier today compatible with artifacts. 2. Similar interstitial and patchy bilateral infiltrates.
--- NOTE | 2020-10-19 11:02 | P.PN ---
Subjective Progress Note Date: 10/19/20 HISTORY OF PRESENT ILLNESS This is a 70 years old male patient of Dr. Polo with past medical history of pulmonary embolism diagnosed in [place] 2 years ago, history of lower extremity DVT, coronary artery disease no stent, history of heart failure unknown if systolic or diastolic, COPD, hyperlipidemia, hypertension, osteoarthritis, prostate cancer, skin disorder,'s obstructive sleep apnea on CPAP, subclavian steal syndrome with stent placement, history of recent penile implant on 07/27/2016. Patient has chronic shortness of breath that has been going on for the past 2 years since the diagnosis of pulmonary embolism with O2 requirements at 2 L nasal cannula Patient is currently on maintenance dose of xarelto at 10 mg daily. He presents emergency room secondary to worsening dyspnea, x 7 days without any medical intervention prior to this, He was seen in the Emergency room for the shortness of breath, worsening dyspnea and exertion, and was found to be SARS cov 2 positive. Chest x-ray, shows bilateral pulmonary interstitial infiltrates compared to old exam, with a similar atelectasis. Poor inspiration, no hilar masses laboratory shows hemoglobin of 12.9, WBC count of 7, creatinine of 1.47, iron of 1.2, glucose 120 CRP 88, pro-calcitonin slightly elevated 0.22. Patient denies any chronic prednisone exposure, Consult were made with pulmonary, Dr. Ramos, pulse oximetry would be 9 PT 1697 at 2-3 L nasal cannula, blood pressure of 129/66. 10/11: Patient was seen for follow-up today, he is a little bit tachypnea, very small amount of labored breathing only on exertion, no conversational dyspnea, O2 at 2 L, sats 95%, no clearance from pulmonary medicine are stable were rounding today, no cough, no pleurisy, no chest pain no palpitations, creatinine at 1.5 today, electrolytes are normal, wbc of 4.7, LDH of 784, ferritin 533 patient is on IV dexamethasone maintained on Xarelto, no new treatment from pulmonary critical care today, currently stable 10/12: A-Team is called during the night due to hypoxia and patient was started on AirVo. Respiratory rate is been in the 40s, heart rate 74, afebrile, pulse ox 96%. Chest x-ray from yesterday revealed patchy. Hilar and basilar infiltrates persist and have progressed slightly in the interval. Repeat blood work reveals WBC 6.8, hemoglobin 12.4, platelet count 135. LDH 1228. C- reactive protein 85.1. The patient has developed increasing difficulty with breathing. He denies having any chest pain. He states he could not sleep through the night. 10/13: Patient states that his breathing status is about the same as yesterday or little bit more difficult. He denies any coughing up blood. He denies any abdominal pain, nausea or vomiting, no diarrhea. Patient remains on Arava with pulse ox of 88-90%. Afebrile, heart rate 69, respiratory rate 40, blood pressure 137/76. Patient is status post 2 doses of Tocilizumab. patient is followed closely by pulmonary medicine. 10/14: Patient is currently on AirVo and nonrebreather but states that he is feeling better today and that his breathing is better. He has been afebrile, heart rate 72, respiratory rate 36, blood pressure 130/70, pulse ox 90%. He denies having abdominal pain, nausea vomiting or diarrhea. He remains on Solu- Medrol 60 mg IV every 6 hours. 10/15: Patient was transferred to the ICU per Dr. Wright. He is currently on AirVo only at time of evaluation and is eating his breakfast. Patient has been maintained on Arava plus nonrebreather. His breathing status appears to be improved from yesterday. His pulse ox is 88%. Afebrile, heart rate 76, respiratory rate 25, blood pressure 131/81. Repeat chest x-ray reveals stable chest. Repeat blood work reveals normal CBC. D-dimer 1.85. C-reactive protein 29. LDH is pending. Ferritin level 1340.6. Patient is scheduled for PICC line insertion today. Lasix 40 mg IV push ordered today by pulmonary medicine. Patient is continued on Solu-Medrol 60 mg every 6 hours. Patient not receiving any antibiotics at this time. 10/16: Patient remains in the intensive care unit. He was off nonrebreather and only on AirVo yesterday most of the day. Now he is on both AirVo and nonrebreather and taking the nonrebreather on and off as he needs it. He is eating 50% of his meals. He has been afebrile, heart rate 69, respiratory rate 34, blood pressure 142/80, pulse ox 88% on both AirVo and nonrebreather. Repeat blood work reveals W BC 13.5, hemoglobin 13.6, platelet count 247. Electrolytes normal. BUN 52 and creatinine 1.2. Blood sugars running between 120 975. Total bilirubin 1.0, AST 111, ALT 137, alkaline phosphatase 80. C-reactive p rotein 16.3, CK 65. Repeat chest x-ray reveals bilateral lower lobe infiltrate and small effusion with coarsened interstitium correlate for venous congestion versus interstitial pneumonia. Patient surprisingly feels his breathing is stable. He has no new complaints. 10/17: Patient remains in intensive care unit. He has been off the nonrebreather for the past hour and a half with only AirVo with pulse ox in the high 80s. He has been afebrile, heart rate in the 70s, blood pressure 142/86, respiratory rate in 30s. Patient verbalizes that his breathing status is improving. Repeat blood work reveals WBC 15.8, hemoglobin 13.7, platelet count 239. Electrolytes normal. BUN 54 and creatinine 1.09. Blood sugars running between 120 765. Total bilirubin 1.5, AST 195, ALT 304, alkaline phosphatase 92, LDH 2785. CK 51, C-reactive protein 11.3. Repeat chest x-ray reveals mild interval pro gression in the lung infiltrates within the right lung. Left lung is stable. No change in small bilateral pleural effusions. 10/18: Patient remains in intensive care unit. He is seen today on AirVo and nonrebreather and pulse ox has been marginal in the low to mid 80s. Heart rate is in the 70s, respiratory rate in the 30s, blood pressure 136/87. He has been afebrile. Repeat blood work reveals WBC 18.4. Electrolytes normal, BUN 59 and creatinine 1.03. Blood sugars running between 126 and 166. Ferritin level 1817. D-dimer 11.45. Total bilirubin 1.7, AST 128, ALT 309, alkaline phosphat ase 121. LDH 3174. CK 98, C-reactive protein 5.9. Repeat chest x-ray reveals left perihilar and basilar infiltrates persist 10/19: Patient's breathing status remains about the same. He has been afebrile, heart rate 70s, respiratory rate 29, blood pressure 143/87. Pulse ox is running mid to high 80s with nonrebreather and high flow nasal cannula. WBC 19.1, hemoglobin 14.1, platelet count 247. D-dimer 11.64. Electrolytes normal. BUN 55 and creatinine 1.05. Blood sugars running between 124 and 197. Ferritin 1583. Total bilirubin 1.4, AST 99, ALT 266, alk phos was 123. LDH 2962. C-re active protein 5.4. Repeat chest x-ray shows no pneumothorax. Interstitial and patchy bilateral infiltrates. REVIEW OF SYSTEMS Constitutional: Denies fever, no chills, no night sweats. Generalized weakness, fatigue. EENT: No headache. No dizziness. No nasal drainage or congestion. No epistaxis. No sore throat. Lungs: Reports shortness of breathunchanged, reports cough, no sputum production. No wheezing. reports dyspnea with exertion. Cardiovascular: No chest pain, no lower extremity edema. No palpitations. No paroxysmal nocturnal dyspnea. No orthopnea. No lightheadedness or dizziness. No syncopal episodes. Abdominal: No abdominal pain. No nausea, vomiting. No diarrhea. No constipation. No bloody or tarry stools.. No loss of appetite. Genitourinary: No dysuria, increased frequency, urgency. No urinary retention. Musculoskeletal: No myalgias. No muscle weakness, no gait dysfunction, no frequent falls. No back pain. No neck pain. Integumentary: No wounds, no lesions. No rash or pruritus. No unusual bruising. No change in hair or nails. Neurologic: No aphasia. No facial droop. No change in mentation. No head injury. No headache. Psychiatric: No depression. No anxiety. No mood swings. Reports insomnia. Endocrine: Noted abnormal blood sugars. No weight change. PHYSICAL EXAMINATION Gen: This is a 70-year-old male. He is resting in ICU bed and appears to be comfortable at rest. Patient is on AirVo and nonrebreather. HEENT: Head is atraumatic, normocephalic. Pupils equal, round. Sclerae is anicteric. NECK: Supple. No JVD. No lymphadenopathy. No thyromegaly. LUNGS: Few scattered rhonchi and scattered expiratory wheezing. Mild intercostal retractions. HEART: Regular rate and rhythm. No murmur. ABDOMEN: Soft. Bowel sounds are present. No masses. No tenderness. EXTREMITIES: No pedal edema. No calf tenderness. Dorsalis pedis palpable bilaterally. NEUROLOGICAL: Patient is awake, alert and oriented x3. Cranial nerves 2 through 12 are grossly intact. ASSESSMENT AND PLAN 1. Acute SARS COV2, infection with acute hypoxic respiratory failure. Continue airflow, pulmonary consult appreciated. Due to cytokine storm and worsening hypoxia, we're going to monitor him for worsening hypoxemia as well as respiratory distress, has history of appropriate for aggressive treatment. Continue Solu-Medrol 60 mg every 6 hours, albuterol inhaler as needed, Symbicort inhaler twice daily, Lasix 40 mg IV daily. Continue vitamin D. Patient is status post 2 doses of Tocilizumab. Incentive spirometry. 2. Chronic anticoagulation, secondary to history of DVT in the past, long-term anticoagulation using Xarelto, which is maintained 3. History of DVT of the right leg in December 2013, resolved on Lasix 40 mg daily, 4. COPD. Continue albuterol- Atrovent as needed . Continue Symbicort twice daily 5 Hyperlipidemia. Continue Crestor daily. 6 Subclavian steal syndrome status post stent in the right carotid. 7 Benign prostatic hypertrophy. Monitor for urinary retention. Continue Flomax daily 8 History of coronary artery disease with previous myocardial infarction. 9 Obstructive Sleep apnea. Patient to continue his own CPAP machine. 10 Gastroesophageal reflux disease and gastric intestinal prophylaxis. Continue Nexium or equivalent. 11. Hypertension. Continue bystolic 10 mg daily . Hold Lasix and Spiriva lactone. 12. Depression. Continue Cymbalta 150 mg twice daily. 13. History of ADHD. Strattera on hold. 13. Chronic kidney disease stage III, stable 14. History of ischemic cardiomyopathy with prior ejection fraction 40%, Lasix 40 mg daily aspirin 81 mg metoprolol no changes made 15 CODE STATUS full code DISCHARGE PLAN Most likely return home. Impression and plan of care have been directed as dictated by the signing physician. Nena Frausto nurse practitioner acting as scribe for signing physician. Objective - Vital Signs Vital signs: Vital Signs Temp 98.3 F 10/19/20 08:00 Pulse 73 10/19/20 08:00 Resp 29 H 10/19/20 08:00 BP 126/81 10/19/20 09:00 Pulse Ox 87 L 10/19/20 09:00 Intake & Output 10/18/20 10/19/20 10/19/20 18:59 06:59 18:59 Intake Total 800 300 Output Total 1125 859 609 Balance -939 -590 -378 Weight 117.6 kg Intake: Oral 800 300 Output: Urine 112 857 235 Other: Voiding Method Indwelling Catheter Indwelling Catheter # Bowel Movements 1 - Labs CBC & Chem 7: 10/19/20 03:25 10/19/20 03:25 Labs: Abnormal Lab Results - Last 24 Hours (Table) 10/18/20 10/18/20 10/18/20 Range/Units 04:58 12:57 16:08 WBC (3.8-10.6) k/uL D-Dimer (<0.60) mg/L FEU BUN (9-20) mg/dL Glucose (74-99) mg/dL POC Glucose (mg/dL) 125 H 155 H (75-99) mg/dL Ferritin 1817.5 H (22.0-322.0) ng/mL Total Bilirubin (0.2-1.3) mg/dL AST (17-59) U/L ALT (4-49) U/L Lactate Dehydrogenase (313-618) U/L 10/18/20 10/19/20 10/19/20 Range/Units 20:22 03:25 03:25 WBC (3.8-10.6) k/uL D-Dimer 11.64 H (<0.60) mg/L FEU BUN 55 H (9-20) mg/dL Glucose 129 H (74-99) mg/dL POC Glucose (mg/dL) 197 H (75-99) mg/dL Ferritin (22.0-322.0) ng/mL Total Bilirubin 1.7 H (0.2-1.3) mg/dL AST 99 H (17-59) U/L ALT 266 H (4-49) U/L Lactate Dehydrogenase 2962 H (313-618) U/L 10/19/20 10/19/20 Range/Units 03:25 06:46 WBC 19.1 H (3.8-10.6) k/uL D-Dimer (<0.60) mg/L FEU BUN (9-20) mg/dL Glucose (74-99) mg/dL POC Glucose (mg/dL) 124 H (75-99) mg/dL Ferritin (22.0-322.0) ng/mL Total Bilirubin (0.2-1.3) mg/dL AST (17-59) U/L ALT (4-49) U/L Lactate Dehydrogenase (313-618) U/L
--- NOTE | 2020-10-19 11:48 | P.PN ---
Subjective Progress Note Date: 10/19/20 Principal diagnosis: CoVID 19 pneumonia This is a pleasant 70-year-old gentleman follows with Dr. Polo as his primary care provider. He has a history of coronary artery disease, peripheral vascular disease, congestive heart failure, hyperlipidemia, hypertension, PE/DVT, obstructive sleep apnea utilizing CPAP, chronic obstructive pulmonary disease on home oxygen at 2 L/m per nasal cannula. The patient is a 1 week history of increasing shortness of breath, nausea, vomiting, diarrhea, weakness and was seen at [facility] and tested positive for CoVID and was instructed to go to the emergency room. Chest x-ray reveals mild bilateral pulmonary interstitial infiltrates. He is seen today in consultation on the selective care unit. He is currently sitting up in bed. Awake and alert in no acute distress. He is maintaining good O2 saturations in the mid 90s on 2 L/m per nasal cannula. He is afebrile. Hemodynamically stable. White count 4.7. Hemoglobin 12.9. Platelet count 116. Lymphocytes 0.7. D-dimer 0.18. Sodium 139. Potassium 4.3. Creatinine 1.51. LDH 784. C-reactive protein 88.5. Pro Calcitonin 0.22. He's been initiated on Symbicort, albuterol. Endocrine related with Xarelto. On dexamethasone, multivitamin. The patient is seen today 10/11/2020 in follow-up on the selective care unit. He is currently sitting up in bed. Awake and alert in no acute distress. He is requiring 3 L nasal cannula to maintain O2 saturations 88% and higher. He is normally on 2 L at home. He denies any worsening shortness of breath. He continues with a loose nonproductive cough. He is maintained on dexamethasone, vitamin supplements. Anticoagulated with Xarelto. 10/12/2020 the patient is being seen in follow-up in the selective units. The patient has been diagnosed having Covid 19 related pneumonia. The patient is 70 years old and he is known to have coronary artery disease, peripheral vascular disease, congestive heart failure, hyperlipidemia, hypertension, PE/DVT, obstructive sleep apnea utilizing CPAP, chronic obstructive pulmonary disease on home oxygen at 2 L/m per nasal cannula. The patient is currently maintained on dexamethasone, vitamin supplements. Anticoagulated with Xarelto. The patient's pulmonary status overnight decompensated. The patient had the replacement high flow oxygen at 60 L with an FiO2 of 60%. Chest x-ray showed diffuse bilateral pulmonary infiltrates, mostly peripheral, consistent with Covid 19 pneumonia, probably there is some interval worsening. The patient has bilateral shoulder replacement. The blood gases from yesterday showed a pH of 7.45 with a pCO2 of 38 and pO2 of 63. His inflammatory markers from today are elevated. LDH level is up to 1228 and a CRP level is up to 85. Need 2020, the patient is still on high flow oxygen at 60 L with an FiO2 of 55%. Based on the significant drop in oxygenation, which The patient on steroids and the patient is currently on Decadron and we added Toci 400 mg and the patient received only 1 dose. He is going to receive his second dose of 400 mg today. Patient's oxygenation is stable. D-dimer is down at 0.33. His LDH level is at 1228 and the CRP is at 85. The chest x-ray from yesterday showed bilateral patchy pulmonary infiltrates. The patient has approximately 2 fibrillation and is maintained on Xarelto. The patient also is known to have coronary artery disease, peripheral vascular disease, congestive heart failure, hyperlipidemia, hypertension, PE/DVT, obstructive sleep apnea utilizing CPAP, chronic obstructive pulmonary disease on home oxygen at 2 L/m per nasal cannula. On 10/14/2020, the patient is gradually getting worse. He was desaturating despite being on high flow oxygen at 60 L and an FiO2 of 90% and he is also utilizing 100% nonrebreather facemask. Note that this patient has been treated aggressively. He received Decadron. He also received 2 doses of Tocilizumab. . The patient had a d-dimer of 1.06 and the rest of the inflammatory markers are still pending for now. Meanwhile, his labs are essentially within normal limits and his creatinine is down to 1.2. He remains on Decadron 6 mg IV every 24 hours. He is also on long-term antibiotic ventilation with Xarelto 20 mg by mouth daily. Note that the patient has previous history of DVT and pulmonary embolism. He has obstructive sleep apnea and he has COPD and is maintained on oxygen at 2 L per minute at home for chronic hypoxic respiratory failure. He has hypertension and hyperlipidemia congestion heart failure and peripheral vascular disease in addition to CABG as comorbid conditions. His last chest x- ray was from 09/14/2020 and a repeat chest x-ray will be ordered. His last chest x-ray showed diffuse breath and pulmonary infiltrates, mainly the peripheries consistent with Covid 19 related pneumonia. 10/15/2020, the patient is currently in the intensive care unit. Just like yesterday, he remains on high flow oxygen 6 L with an FiO2 of 90% and the patient is also utilizing 100% nonrebreather facemask. His current pulse ox is around 91%. He is comfortable. Is at the rate is in the low 30s. His chest x- ray from today showing stable bilateral pulmonary infiltrates without any major interval change compared to yesterday. His blood work from today shows no electrolyte abnormalities, creatinine stable at 1.2. His inflammatory markers are still pending. CRP is down to 29, LDH is pending for now. The d-dimer is at 1.85. In terms of therapy, and he is on IV Solu-Medrol 60 mg every 6 hours is also on multivitamins and he remains on long-term anticoagulation with Xarelto. He is lethargic. Oral intake is quite diminished at this point in time. No altered mentation. Is able to follow commands appropriately. He is weak. He is known to have COPD, previous bypass, hypertension and hyperlipidemia and peripheral vascular disease. He is also known to have CHF. He does have a remote history of DVT and pulmonary embolism. He remains in the ICU for now. He got transferred to the ICU yesterday because of ongoing difficulties with shortness of breath and hypoxemia. His echocardiogram from 2018 was essentially within normal limits and he had a normal ejection fraction. 10/16/2020, Rayo is on 60 L of oxygen along with an FiO2 of 90% and the patient is on 100% nonrebreather facemask. He is quite comfortable. He takes of his main for feeding purposes. During this time, he desaturates and is relatively asymptomatic while he desaturates. He goes down to the 80s and he recovers. He is not tachypneic. He is resting comfortably in bed. In terms of treatment, the patient remains on IV Solu Medrol 60 mg every 6 hours. He is on long-term anticoagulation with Xarelto. His chest x-ray from today is reviewed and is showing some limited improvement in the bilateral interstitial infiltrates seen earlier. In terms of his inflammatory markers, his LDH from yesterday and today has not been checked. His last LDH level was on 10/14/2020 was 1797. His CRP level has dropped down to 16.3. His d-dimer level is at 4.08. As mentioned, the patient is on anticoagulation and he is on Xarelto. He is also on Lasix and he is receiving Lasix 40 mg IV every 24 hours. Neck fluid balance over the past 24 hours has been -2.2 L and is responding nicely to diuretics and his weight is declined. No other significant issues. No altered mentation. No agitation. No confusion. No nausea. No vomiting. No diarrhea. No abdominal pain. No chest pain. He is known to have CAD, previous bypass, hypertension and hyperlipidemia and peripheral vascular disease. He also has history of DVT and pulmonary embolism remains on anticoagulation. 10/17/2020, the patient is on high flow oxygen at 60 L along with FiO2 of 90%. Chest x-ray showing infiltrates mainly on the left compared to the right. Lung volumes are essentially small. No major interval change compared to yesterday, the right lung is obviously better compared to the chest x-ray yesterday. In terms of his clinical status, the patient is feeling that he is less short of breath compared to yesterday. He has occasional cough. No chest pain. He is able to get rid of his 100% nonrebreather facemask and tolerate his diet. He is taking approximately 50% of his diet provided. He remains on IV Solu-Medrol. He remains on long-term articulation with Xarelto. LDH and CRP are being monitored. The levels were quite elevated and the LDH today's 2785 and the CRP is 11.3. The BUN is a 54 with a creatinine of 1.09. Electrolytes are normal, d-dimer is at 6.88, and the CBC showing a white cell count of 15.8 with a hemoglobin of 13.7. No confusion. No altered mentation. Fluid balance is in order of -2.4 L. He is getting Lasix 40 mg IV every 24 hours. No other significant events overnight A 2020 the patient is being seen for a follow-up. Currently he is on a combination of high flow oxygen 6 L with an FiO2 of 90% and the same time the patient is on a nonrebreather facemask 100%. Pulse ox is currently ranging between 80% up to 88% and it fluctuates. Overnight, he became slightly more restless and agitated. He pulled on his masks and he became briefly hypoxic and had to be placed again. As stated, his overall respiratory status quite borderline. He is a case of Covid 19 related pneumonia. On IV Solu-Medrol 60 mg every 6 hours. In terms of his inflammatory markers today, the patient's LDH level is up to 3174 and his CRP level is also at 5.9. D-dimer is at 11.45. He is on anticoagulation and is receiving Xarelto on a daily basis . His chest x- ray is showing limited by system place, change compared to yesterday. On examination, he has adequate air entry bilaterally. His fluid balance over the past 24 hours has been in the order of -2.4 L and the patient is diuresing adequately. His body weight is also on the decline. His blood work today shows a BUN of 54 with a creatinine of 1.09 and the sodium level is at 139. His white cell count 15.8 with hemoglobin 13.7 and a adequate platelet count of 239. No other significant events otherwise for now. Active issue remains is ongoing respiratory insufficiency and high oxygen requirements. The patient is seen today 10/19/2020 in follow-up in the intensive care unit. He is currently sitting up in bed. Awake and alert in no acute distress. He is still requiring airflow high flow oxygen at 15 L/m and 90% FiO2 along with a nonrebreather mask to maintain O2 saturations in the high 80s low 90s. He did receive Tocilizumab. He is currently on Solu-Medrol 60 mg every 6 hours, bronchodilators. Anticoagulated with Xarelto. Receiving IV diuretics. Remains in a negative balance. Chest x-ray continues to show bilateral patchy infiltrates. No evidence of pneumothorax. White count 19.1. Hemoglobin 14.1. D-dimer 11.6. Sodium 137. Potassium 4.4. Creatinine 1.0. LDH 2962. C- reactive protein 5.4. Objective - Vital Signs Vital signs: Vital Signs Temp 98.3 F 10/19/20 08:00 Pulse 73 10/19/20 10:00 Resp 31 H 10/19/20 10:00 BP 120/83 10/19/20 10:00 Pulse Ox 95 10/19/20 10:00 Intake & Output 10/18/20 10/19/20 10/19/20 18:59 06:59 18:59 Intake Total 800 300 Output Total 1125 855 235 Balance -556 -082 -600 Weight 117.6 kg Intake: Oral 800 300 Output: Urine 1125 855 235 Other: Voiding Method Indwelling Catheter Indwelling Catheter Indwelling Catheter # Bowel Movements 1 - Exam GENERAL EXAM: Alert, pleasant 70-year-old gentleman, on AirVO high flow oxygen at 50 L/m and 90% FiO2 along with a nonrebreather mask., comfortable in no apparent distress. HEAD: Normocephalic. EYES: Normal reaction of pupils, equal size. NOSE: Clear with pink turbinates. THROAT: No erythema or exudates. NECK: No masses, no JVD. CHEST: No chest wall deformity. LUNGS: Equal air entry with few scattered rhonchi, crackles in the bases. CVS: S1 and S2 normal with no audible murmur, regular rhythm. ABDOMEN: No hepatosplenomegaly, normal bowel sounds, no guarding or rigidity. SPINE: No scoliosis or deformity SKIN: No rashes CENTRAL NERVOUS SYSTEM: No focal deficits, tone is normal in all 4 extremities. EXTREMITIES: There is no peripheral edema. No clubbing, no cyanosis. Peripheral pulses are intact. - Labs CBC & Chem 7: 10/19/20 03:25 10/19/20 03:25 Labs: Abnormal Lab Results - Last 24 Hours (Table) 10/18/20 10/18/20 10/18/20 Range/Units 12:57 16:08 20:22 WBC (3.8-10.6) k/uL D-Dimer (<0.60) mg/L FEU BUN (9-20) mg/dL Glucose (74-99) mg/dL POC Glucose (mg/dL) 125 H 155 H 197 H (75-99) mg/dL Ferritin (22.0-322.0) ng/mL Total Bilirubin (0.2-1.3) mg/dL AST (17-59) U/L ALT (4-49) U/L Lactate Dehydrogenase (313-618) U/L 10/19/20 10/19/20 10/19/20 Range/Units 03:25 03:25 03:25 WBC 19.1 H (3.8-10.6) k/uL D-Dimer 11.64 H (<0.60) mg/L FEU BUN 55 H (9-20) mg/dL Glucose 129 H (74-99) mg/dL POC Glucose (mg/dL) (75-99) mg/dL Ferritin (22.0-322.0) ng/mL Total Bilirubin 1.7 H (0.2-1.3) mg/dL AST 99 H (17-59) U/L ALT 266 H (4-49) U/L Lactate Dehydrogenase 2962 H (313-618) U/L 10/19/20 10/19/20 Range/Units 03:30 06:46 WBC (3.8-10.6) k/uL D-Dimer (<0.60) mg/L FEU BUN (9-20) mg/dL Glucose (74-99) mg/dL POC Glucose (mg/dL) 124 H (75-99) mg/dL Ferritin 1583.5 H (22.0-322.0) ng/mL Total Bilirubin (0.2-1.3) mg/dL AST (17-59) U/L ALT (4-49) U/L Lactate Dehydrogenase (313-618) U/L Assessment and Plan Assessment: 1 Acute on chronic hypoxic respiratory failure secondary to acute CoVID 19 pneumonia and remains on AirVo high flow oxygen at 60 L and 90% FiO2 in addition to 100% nonrebreather facemask. - The patient is on IV Solu-Medrol - The patient has post Tocilizumab x2, no Remdesivir - Currently on 50 L of oxygen by nasal cannula with an FiO2 of 90% and he is also on 100% nonrebreather facemask - Anticoagulation with Xarelto. - Chest x-ray findings are stable 2 Elevated inflammatory markers secondary to above 3 Acute on chronic renal failure 4 Chronic hypoxic respiratory failure secondary to chronic obstructive pulmonary disease on home O2 at 2 L/m 5 Former smoker 6 History of coronary disease 7 Hyperlipidemia 8 Hypertension 9 History of PE/DVT anticoagulate with Xarelto 10 History of depression 11 Obstructive sleep apnea utilizing CPAP 12 History of peripheral vascular disease 13 BPH Plan: The patient was seen and evaluated by Dr. Manley Continue the current treatment plan IV Solu-Medrol 60 mg every 6 hours. Already received Tocilizumab x2 . Anticoagulated with Xarelto Repeat chest x-ray, inflammatory markers in the a.m. We will continue to follow Critical care time 36 minutes I, the cosigning physician, performed a history & physical examination of the patient. Lungs sounds with few scattered rhonchi, crackles in the bilateral posterior bases. Maintaining good O2 saturations in the 90s on AirVo high flow oxygen at 50 L and 90% FiO2 along with the 100% nonrebreather mask I discussed the assessment and plan of care with my nurse practitioner, Kandis Pepe. I attest to the above note as dictated by her.
[2020-10-19 11:51] LABS: Glucose,Whole Blood 159 mg/dL (75-99)
[2020-10-19 16:34] LABS: Glucose,Whole Blood 152 mg/dL (75-99)
[2020-10-19 20:25] LABS: Glucose,Whole Blood 143 mg/dL (75-99)
[2020-10-19] MEDS: MIRTAZAPINE 15 MG TAB PO SCH (20:29)
[2020-10-19] MEDS: NON FORMULARY DRUG (Rosuvastatin 20 MG Tablet) PO SCH (20:32)
[2020-10-20 04:58] LABS: HCT 43.8 % (39.0-53.0); HGB 14.3 gm/dL (13.0-17.5); MCH 30.8 pg (25.0-35.0); MCHC 32.7 g/dL (31.0-37.0); MCV 94.3 fL (80.0-100.0); Mean Platelet Volume 7.7; Platelet Count 233 k/uL (150-450); RBC 4.64 m/uL (4.30-5.90); WBC 21.3 k/uL (3.8-10.6)
[2020-10-20 05:52] LABS: ALT 262 U/L (4-49); AST 87 U/L (17-59); African American GFR (CKD) 80 (>60 ml/min/1.73 sqM); Albumin 3.6 g/dL (3.5-5.0); Alkaline Phosphatase 131 U/L (38-126); Anion Gap 8 mmol/L; Blood Urea Nitrogen 57 mg/dL (9-20); Calcium 8.8 mg/dL (8.4-10.2); Carbon Dioxide 26 mmol/L (22-30); Chloride 102 mmol/L (98-107); Glucose 135 mg/dL (74-99); Non-African American GFR(CKD) 70 (>60 ml/min/1.73 sqM); Potassium 4.5 mmol/L (3.5-5.1); Sodium 136 mmol/L (137-145); Total Bilirubin 1.8 mg/dL (0.2-1.3); Total Protein 6.7 g/dL (6.3-8.2)
[2020-10-20 06:01] LABS: C Reactive Protein <5.0 mg/L (<10.0)
[2020-10-20] MEDS: methylPREDNISolone SOD SUCCI 125 MG/2 ML VIAL IV SCH ×4 (06:36→23:24)
[2020-10-20 07:12] LABS: Glucose,Whole Blood 134 mg/dL (75-99)
[2020-10-20] MEDS: TIOTROPIUM 2.5 MCG INHALER INHALATION SCH (07:28)
[2020-10-20] MEDS: SYMBICORT 160-4.5 MCG INHALER INHALATION SCH ×2 (07:28→20:46)
[2020-10-20] MEDS: ALBUTEROL HFA INHALER INHALATION PRN ×4 (07:28→20:46)
[2020-10-20] MEDS: INSULIN ASPART (NovoLOG) 100 UNIT/ML VIAL SQ SCH ×4 (07:49→20:47)
[2020-10-20] MEDS: NON FORMULARY DRUG (Atomoxetine Hcl [Strattera] 40 MG Capsule) PO SCH (08:37)
[2020-10-20] MEDS: PANTOPRAZOLE 40 MG TABLET PO SCH (08:37)
[2020-10-20] MEDS: guaiFENesin 600 MG TABLET.ER PO SCH ×2 (08:37→20:47)
[2020-10-20] MEDS: NON FORMULARY DRUG (Atomoxetine Hcl [Strattera] 60 MG Capsule) PO SCH (08:37)
[2020-10-20] MEDS: FUROSEMIDE 10 MG/ML 4 ML VIAL IV SCH (08:37)
[2020-10-20] MEDS: CHOLECALCIFEROL 25 MCG (1000 IU) TABLET PO SCH (08:37)
[2020-10-20] MEDS: VENLAFAXINE HCL 75 MG TAB PO SCH ×2 (08:38→20:48)
[2020-10-20] MEDS: METOPROLOL SUCCINATE (ER) 25 MG TAB.ER.24H PO SCH (08:38)
[2020-10-20] MEDS: RIVAROXABAN 20 MG TAB PO SCH (08:38)
[2020-10-20] MEDS: NEBIVOLOL 5 MG TAB PO SCH (08:38)
[2020-10-20] MEDS: LORATADINE 10 MG TAB PO SCH (08:38)
[2020-10-20] MEDS: allopurinoL 300 MG TAB PO SCH (08:38)
[2020-10-20] MEDS: levETIRAcetam 500 MG TAB PO SCH ×2 (08:38→20:47)
[2020-10-20] MEDS: MULTIVITAMINS, THERA 1 EACH TAB PO SCH (08:39)
[2020-10-20] MEDS: ASPIRIN 81 MG PO SCH (08:39)
--- NOTE | 2020-10-20 08:42 | XR ---
EXAMINATION TYPE: XR chest 1V portable DATE OF EXAM: 10/20/2020 Comparison: 10/19/2020 Clinical History: 70-year-old male Covid Findings: Partially visualized bilateral reverse shoulder arthroplasties. Vascular stent projecting at the righ t apex. Left PICC tip located within the left midline likely within the left brachiocephalic vein. Cu rvilinear external artifacts project over the central portion of the chest. Interstitial opacities re main. Suspect trace effusions. Motion artifact on the current exam. Old healed left-sided rib fractur es. Impression: Allowing for motion artifact, exam appears relatively stable with interstitial infiltrates and possib le trace effusions.
[2020-10-20 10:22] LABS: Ferritin 1616.1 ng/mL (22.0-322.0)
--- NOTE | 2020-10-20 11:05 | P.PN ---
Subjective Progress Note Date: 10/20/20 HISTORY OF PRESENT ILLNESS This is a 70 years old male patient of Dr. Polo with past medical history of pulmonary embolism diagnosed in [place] 2 years ago, history of lower extremity DVT, coronary artery disease no stent, history of heart failure unknown if systolic or diastolic, COPD, hyperlipidemia, hypertension, osteoarthritis, prostate cancer, skin disorder,'s obstructive sleep apnea on CPAP, subclavian steal syndrome with stent placement, history of recent penile implant on 07/27/2016. Patient has chronic shortness of breath that has been going on for the past 2 years since the diagnosis of pulmonary embolism with O2 requirements at 2 L nasal cannula Patient is currently on maintenance dose of xarelto at 10 mg daily. He presents emergency room secondary to worsening dyspnea, x 7 days without any medical intervention prior to this, He was seen in the Emergency room for the shortness of breath, worsening dyspnea and exertion, and was found to be SARS cov 2 positive. Chest x-ray, shows bilateral pulmonary interstitial infiltrates compared to old exam, with a similar atelectasis. Poor inspiration, no hilar masses laboratory shows hemoglobin of 12.9, WBC count of 7, creatinine of 1.47, iron of 1.2, glucose 120 CRP 88, pro-calcitonin slightly elevated 0.22. Patient denies any chronic prednisone exposure, Consult were made with pulmonary, Dr. Ramos, pulse oximetry would be 9 PT 1697 at 2-3 L nasal cannula, blood pressure of 129/66. 10/11: Patient was seen for follow-up today, he is a little bit tachypnea, very small amount of labored breathing only on exertion, no conversational dyspnea, O2 at 2 L, sats 95%, no clearance from pulmonary medicine are stable were rounding today, no cough, no pleurisy, no chest pain no palpitations, creatinine at 1.5 today, electrolytes are normal, wbc of 4.7, LDH of 784, ferritin 533 patient is on IV dexamethasone maintained on Xarelto, no new treatment from pulmonary critical care today, currently stable 10/12: A-Team is called during the night due to hypoxia and patient was started on AirVo. Respiratory rate is been in the 40s, heart rate 74, afebrile, pulse ox 96%. Chest x-ray from yesterday revealed patchy. Hilar and basilar infiltrates persist and have progressed slightly in the interval. Repeat blood work reveals WBC 6.8, hemoglobin 12.4, platelet count 135. LDH 1228. C- reactive protein 85.1. The patient has developed increasing difficulty with breathing. He denies having any chest pain. He states he could not sleep through the night. 10/13: Patient states that his breathing status is about the same as yesterday or little bit more difficult. He denies any coughing up blood. He denies any abdominal pain, nausea or vomiting, no diarrhea. Patient remains on Arava with pulse ox of 88-90%. Afebrile, heart rate 69, respiratory rate 40, blood pressure 137/76. Patient is status post 2 doses of Tocilizumab. patient is followed closely by pulmonary medicine. 10/14: Patient is currently on AirVo and nonrebreather but states that he is feeling better today and that his breathing is better. He has been afebrile, heart rate 72, respiratory rate 36, blood pressure 130/70, pulse ox 90%. He denies having abdominal pain, nausea vomiting or diarrhea. He remains on Solu- Medrol 60 mg IV every 6 hours. 10/15: Patient was transferred to the ICU per Dr. Wright. He is currently on AirVo only at time of evaluation and is eating his breakfast. Patient has been maintained on Arava plus nonrebreather. His breathing status appears to be improved from yesterday. His pulse ox is 88%. Afebrile, heart rate 76, respiratory rate 25, blood pressure 131/81. Repeat chest x-ray reveals stable chest. Repeat blood work reveals normal CBC. D-dimer 1.85. C-reactive protein 29. LDH is pending. Ferritin level 1340.6. Patient is scheduled for PICC line insertion today. Lasix 40 mg IV push ordered today by pulmonary medicine. Patient is continued on Solu-Medrol 60 mg every 6 hours. Patient not receiving any antibiotics at this time. 10/16: Patient remains in the intensive care unit. He was off nonrebreather and only on AirVo yesterday most of the day. Now he is on both AirVo and nonrebreather and taking the nonrebreather on and off as he needs it. He is eating 50% of his meals. He has been afebrile, heart rate 69, respiratory rate 34, blood pressure 142/80, pulse ox 88% on both AirVo and nonrebreather. Repeat blood work reveals W BC 13.5, hemoglobin 13.6, platelet count 247. Electrolytes normal. BUN 52 and creatinine 1.2. Blood sugars running between 120 975. Total bilirubin 1.0, AST 111, ALT 137, alkaline phosphatase 80. C-reactive p rotein 16.3, CK 65. Repeat chest x-ray reveals bilateral lower lobe infiltrate and small effusion with coarsened interstitium correlate for venous congestion versus interstitial pneumonia. Patient surprisingly feels his breathing is stable. He has no new complaints. 10/17: Patient remains in intensive care unit. He has been off the nonrebreather for the past hour and a half with only AirVo with pulse ox in the high 80s. He has been afebrile, heart rate in the 70s, blood pressure 142/86, respiratory rate in 30s. Patient verbalizes that his breathing status is improving. Repeat blood work reveals WBC 15.8, hemoglobin 13.7, platelet count 239. Electrolytes normal. BUN 54 and creatinine 1.09. Blood sugars running between 120 765. Total bilirubin 1.5, AST 195, ALT 304, alkaline phosphatase 92, LDH 2785. CK 51, C-reactive protein 11.3. Repeat chest x-ray reveals mild interval pro gression in the lung infiltrates within the right lung. Left lung is stable. No change in small bilateral pleural effusions. 10/18: Patient remains in intensive care unit. He is seen today on AirVo and nonrebreather and pulse ox has been marginal in the low to mid 80s. Heart rate is in the 70s, respiratory rate in the 30s, blood pressure 136/87. He has been afebrile. Repeat blood work reveals WBC 18.4. Electrolytes normal, BUN 59 and creatinine 1.03. Blood sugars running between 126 and 166. Ferritin level 1817. D-dimer 11.45. Total bilirubin 1.7, AST 128, ALT 309, alkaline phosphat ase 121. LDH 3174. CK 98, C-reactive protein 5.9. Repeat chest x-ray reveals left perihilar and basilar infiltrates persist 10/19: Patient's breathing status remains about the same. He has been afebrile, heart rate 70s, respiratory rate 29, blood pressure 143/87. Pulse ox is running mid to high 80s with nonrebreather and high flow nasal cannula. WBC 19.1, hemoglobin 14.1, platelet count 247. D-dimer 11.64. Electrolytes normal. BUN 55 and creatinine 1.05. Blood sugars running between 124 and 197. Ferritin 1583. Total bilirubin 1.4, AST 99, ALT 266, alk phos was 123. LDH 2962. C-re active protein 5.4. Repeat chest x-ray shows no pneumothorax. Interstitial and patchy bilateral infiltrates. 10/20: Patient remains in the intensive care unit and he is currently on nonrebreather and high flow nasal cannula. Pulse ox is running 86-91%. He has been afebrile, heart rate in the 70s, respiratory rate 29, blood pressure 145/81. WBC 21.3. Sodium 136, BUN 57 and creatinine 1.07. Blood sugars running between 100 3459. Ferritin level 1616. Total bilirubin 1.8, AST 87, ALT 262, alkaline phosphatase 131. C-reactive protein normal at less than 5. Repeat chest x-ray reveals relatively stable with interstitial infiltrates and possible trace effusions. REVIEW OF SYSTEMS Constitutional: Denies fever, no chills, no night sweats. Generalized weakness, fatigue. EENT: No headache. No dizziness. No nasal drainage or congestion. No epistaxis. No sore throat. Lungs: Reports shortness of breathunchanged, reports cough, no sputum production. No wheezing. reports dyspnea with exertion. Cardiovascular: No chest pain, no lower extremity edema. No palpitations. No paroxysmal nocturnal dyspnea. No orthopnea. No lightheadedness or dizziness. No syncopal episodes. Abdominal: No abdominal pain. No nausea, vomiting. No diarrhea. No constipation. No bloody or tarry stools.. No loss of appetite. Genitourinary: No dysuria, increased frequency, urgency. No urinary retention. Musculoskeletal: No myalgias. No muscle weakness, no gait dysfunction, no frequent falls. No back pain. No neck pain. Integumentary: No wounds, no lesions. No rash or pruritus. No unusual bruising. High flow nasal cannula Neurologic: No aphasia. No facial droop. No change in mentation. No head injury. No headache. Psychiatric: No depression. No anxiety. No mood swings. Reports insomnia. Endocrine: Noted abnormal blood sugars. No weight change. PHYSICAL EXAMINATION Gen: This is a 70-year-old male. He is resting in ICU bed and appears to be comfortable at rest. Patient is on AirVo and nonrebreather. HEENT: Head is atraumatic, normocephalic. Pupils equal, round. Sclerae is anicteric. NECK: Supple. No JVD. No lymphadenopathy. No thyromegaly. LUNGS: Few scattered rhonchi and scattered expiratory wheezing. Mild intercostal retractions. HEART: Regular rate and rhythm. No murmur. ABDOMEN: Soft. Bowel sounds are present. No masses. No tenderness. EXTREMITIES: No pedal edema. No calf tenderness. Dorsalis pedis palpable bilaterally. NEUROLOGICAL: Patient is awake, alert and oriented x3. Cranial nerves 2 through 12 are grossly intact. ASSESSMENT AND PLAN 1. Acute SARS COV2, infection with acute hypoxic respiratory failure. Continue airflow, pulmonary consult appreciated. Due to cytokine storm and worsening hypoxia, we're going to monitor him for worsening hypoxemia as well as respiratory distress, has history of appropriate for aggressive treatment. Continue Solu-Medrol 60 mg every 6 hours, albuterol inhaler as needed, Symbicort inhaler twice daily, Lasix 40 mg IV daily. Continue vitamin D. Patient is status post 2 doses of Tocilizumab. Incentive spirometry. 2. Chronic anticoagulation, secondary to history of DVT in the past, long-term anticoagulation using Xarelto, which is maintained 3. History of DVT of the right leg in December 2013, resolved on Lasix 40 mg daily, 4. COPD. Continue albuterol- Atrovent as needed . Continue Symbicort twice daily 5 Hyperlipidemia. Continue Crestor daily. 6 Subclavian steal syndrome status post stent in the right carotid. 7 Benign prostatic hypertrophy. Monitor for urinary retention. Continue Flomax daily 8 History of coronary artery disease with previous myocardial infarction. 9 Obstructive Sleep apnea. Patient to continue his own CPAP machine. 10 Gastroesophageal reflux disease and gastric intestinal prophylaxis. Continue Nexium or equivalent. 11. Hypertension. Continue bystolic 10 mg daily . Hold aldactone. 12. Depression. Continue Cymbalta 150 mg twice daily. 13. History of ADHD. Strattera on hold. 13. Chronic kidney disease stage III, stable 14. History of ischemic cardiomyopathy with prior ejection fraction 40%, Lasix 40 mg IVdaily aspirin 81 mg metoprolol 15 CODE STATUS full code DISCHARGE PLAN Most likely return home. Impression and plan of care have been directed as dictated by the signing physician. Nena Frausto nurse practitioner acting as scribe for signing physician. Objective - Vital Signs Vital signs: Vital Signs Temp 98.6 F 10/20/20 04:00 Pulse 70 10/20/20 07:00 Resp 28 H 10/20/20 07:00 BP 140/87 10/20/20 07:00 Pulse Ox 91 L 10/20/20 07:00 Intake & Output 10/19/20 10/20/20 10/20/20 18:59 06:59 18:59 Intake Total 600 Output Total 1255 1200 80 Balance -1255 -600 -80 Weight 114.6 kg Intake: Oral 600 Output: Urine 1255 1200 80 Other: Voiding Method Indwelling Catheter Indwelling Catheter - Labs CBC & Chem 7: 10/20/20 04:02 10/20/20 04:02 Labs: Abnormal Lab Results - Last 24 Hours (Table) 10/19/20 10/19/20 10/19/20 Range/Units 03:30 11:50 16:32 WBC (3.8-10.6) k/uL Sodium (137-145) mmol/L BUN (9-20) mg/dL Glucose (74-99) mg/dL POC Glucose (mg/dL) 159 H 152 H (75-99) mg/dL Ferritin 1583.5 H (22.0-322.0) ng/mL Total Bilirubin (0.2-1.3) mg/dL AST (17-59) U/L ALT (4-49) U/L Alkaline Phosphatase (38-126) U/L 10/19/20 10/20/20 10/20/20 Range/Units 20:24 04:02 04:02 WBC 21.3 H (3.8-10.6) k/uL Sodium 136 L (137-145) mmol/L BUN 57 H (9-20) mg/dL Glucose 135 H (74-99) mg/dL POC Glucose (mg/dL) 143 H (75-99) mg/dL Ferritin (22.0-322.0) ng/mL Total Bilirubin 1.8 H (0.2-1.3) mg/dL AST 87 H (17-59) U/L ALT 262 H (4-49) U/L Alkaline Phosphatase 131 H (38-126) U/L 10/20/20 Range/Units 07:11 WBC (3.8-10.6) k/uL Sodium (137-145) mmol/L BUN (9-20) mg/dL Glucose (74-99) mg/dL POC Glucose (mg/dL) 134 H (75-99) mg/dL Ferritin (22.0-322.0) ng/mL Total Bilirubin (0.2-1.3) mg/dL AST (17-59) U/L ALT (4-49) U/L Alkaline Phosphatase (38-126) U/L
[2020-10-20 11:37] LABS: Glucose,Whole Blood 155 mg/dL (75-99)
--- NOTE | 2020-10-20 12:02 | P.PN ---
Subjective Progress Note Date: 10/20/20 Principal diagnosis: CoVID 19 pneumonia This is a pleasant 70-year-old gentleman follows with Dr. Polo as his primary care provider. He has a history of coronary artery disease, peripheral vascular disease, congestive heart failure, hyperlipidemia, hypertension, PE/DVT, obstructive sleep apnea utilizing CPAP, chronic obstructive pulmonary disease on home oxygen at 2 L/m per nasal cannula. The patient is a 1 week history of increasing shortness of breath, nausea, vomiting, diarrhea, weakness and was seen at [facility] and tested positive for CoVID and was instructed to go to the emergency room. Chest x-ray reveals mild bilateral pulmonary interstitial infiltrates. He is seen today in consultation on the selective care unit. He is currently sitting up in bed. Awake and alert in no acute distress. He is maintaining good O2 saturations in the mid 90s on 2 L/m per nasal cannula. He is afebrile. Hemodynamically stable. White count 4.7. Hemoglobin 12.9. Platelet count 116. Lymphocytes 0.7. D-dimer 0.18. Sodium 139. Potassium 4.3. Creatinine 1.51. LDH 784. C-reactive protein 88.5. Pro Calcitonin 0.22. He's been initiated on Symbicort, albuterol. Endocrine related with Xarelto. On dexamethasone, multivitamin. The patient is seen today 10/11/2020 in follow-up on the selective care unit. He is currently sitting up in bed. Awake and alert in no acute distress. He is requiring 3 L nasal cannula to maintain O2 saturations 88% and higher. He is normally on 2 L at home. He denies any worsening shortness of breath. He continues with a loose nonproductive cough. He is maintained on dexamethasone, vitamin supplements. Anticoagulated with Xarelto. 10/12/2020 the patient is being seen in follow-up in the selective units. The patient has been diagnosed having Covid 19 related pneumonia. The patient is 70 years old and he is known to have coronary artery disease, peripheral vascular disease, congestive heart failure, hyperlipidemia, hypertension, PE/DVT, obstructive sleep apnea utilizing CPAP, chronic obstructive pulmonary disease on home oxygen at 2 L/m per nasal cannula. The patient is currently maintained on dexamethasone, vitamin supplements. Anticoagulated with Xarelto. The patient's pulmonary status overnight decompensated. The patient had the replacement high flow oxygen at 60 L with an FiO2 of 60%. Chest x-ray showed diffuse bilateral pulmonary infiltrates, mostly peripheral, consistent with Covid 19 pneumonia, probably there is some interval worsening. The patient has bilateral shoulder replacement. The blood gases from yesterday showed a pH of 7.45 with a pCO2 of 38 and pO2 of 63. His inflammatory markers from today are elevated. LDH level is up to 1228 and a CRP level is up to 85. Need 2020, the patient is still on high flow oxygen at 60 L with an FiO2 of 55%. Based on the significant drop in oxygenation, which The patient on steroids and the patient is currently on Decadron and we added Toci 400 mg and the patient received only 1 dose. He is going to receive his second dose of 400 mg today. Patient's oxygenation is stable. D-dimer is down at 0.33. His LDH level is at 1228 and the CRP is at 85. The chest x-ray from yesterday showed bilateral patchy pulmonary infiltrates. The patient has approximately 2 fibrillation and is maintained on Xarelto. The patient also is known to have coronary artery disease, peripheral vascular disease, congestive heart failure, hyperlipidemia, hypertension, PE/DVT, obstructive sleep apnea utilizing CPAP, chronic obstructive pulmonary disease on home oxygen at 2 L/m per nasal cannula. On 10/14/2020, the patient is gradually getting worse. He was desaturating despite being on high flow oxygen at 60 L and an FiO2 of 90% and he is also utilizing 100% nonrebreather facemask. Note that this patient has been treated aggressively. He received Decadron. He also received 2 doses of Tocilizumab. . The patient had a d-dimer of 1.06 and the rest of the inflammatory markers are still pending for now. Meanwhile, his labs are essentially within normal limits and his creatinine is down to 1.2. He remains on Decadron 6 mg IV every 24 hours. He is also on long-term antibiotic ventilation with Xarelto 20 mg by mouth daily. Note that the patient has previous history of DVT and pulmonary embolism. He has obstructive sleep apnea and he has COPD and is maintained on oxygen at 2 L per minute at home for chronic hypoxic respiratory failure. He has hypertension and hyperlipidemia congestion heart failure and peripheral vascular disease in addition to CABG as comorbid conditions. His last chest x- ray was from 09/14/2020 and a repeat chest x-ray will be ordered. His last chest x-ray showed diffuse breath and pulmonary infiltrates, mainly the peripheries consistent with Covid 19 related pneumonia. 10/15/2020, the patient is currently in the intensive care unit. Just like yesterday, he remains on high flow oxygen 6 L with an FiO2 of 90% and the patient is also utilizing 100% nonrebreather facemask. His current pulse ox is around 91%. He is comfortable. Is at the rate is in the low 30s. His chest x- ray from today showing stable bilateral pulmonary infiltrates without any major interval change compared to yesterday. His blood work from today shows no electrolyte abnormalities, creatinine stable at 1.2. His inflammatory markers are still pending. CRP is down to 29, LDH is pending for now. The d-dimer is at 1.85. In terms of therapy, and he is on IV Solu-Medrol 60 mg every 6 hours is also on multivitamins and he remains on long-term anticoagulation with Xarelto. He is lethargic. Oral intake is quite diminished at this point in time. No altered mentation. Is able to follow commands appropriately. He is weak. He is known to have COPD, previous bypass, hypertension and hyperlipidemia and peripheral vascular disease. He is also known to have CHF. He does have a remote history of DVT and pulmonary embolism. He remains in the ICU for now. He got transferred to the ICU yesterday because of ongoing difficulties with shortness of breath and hypoxemia. His echocardiogram from 2018 was essentially within normal limits and he had a normal ejection fraction. 10/16/2020, Rayo is on 60 L of oxygen along with an FiO2 of 90% and the patient is on 100% nonrebreather facemask. He is quite comfortable. He takes of his main for feeding purposes. During this time, he desaturates and is relatively asymptomatic while he desaturates. He goes down to the 80s and he recovers. He is not tachypneic. He is resting comfortably in bed. In terms of treatment, the patient remains on IV Solu Medrol 60 mg every 6 hours. He is on long-term anticoagulation with Xarelto. His chest x-ray from today is reviewed and is showing some limited improvement in the bilateral interstitial infiltrates seen earlier. In terms of his inflammatory markers, his LDH from yesterday and today has not been checked. His last LDH level was on 10/14/2020 was 1797. His CRP level has dropped down to 16.3. His d-dimer level is at 4.08. As mentioned, the patient is on anticoagulation and he is on Xarelto. He is also on Lasix and he is receiving Lasix 40 mg IV every 24 hours. Neck fluid balance over the past 24 hours has been -2.2 L and is responding nicely to diuretics and his weight is declined. No other significant issues. No altered mentation. No agitation. No confusion. No nausea. No vomiting. No diarrhea. No abdominal pain. No chest pain. He is known to have CAD, previous bypass, hypertension and hyperlipidemia and peripheral vascular disease. He also has history of DVT and pulmonary embolism remains on anticoagulation. 10/17/2020, the patient is on high flow oxygen at 60 L along with FiO2 of 90%. Chest x-ray showing infiltrates mainly on the left compared to the right. Lung volumes are essentially small. No major interval change compared to yesterday, the right lung is obviously better compared to the chest x-ray yesterday. In terms of his clinical status, the patient is feeling that he is less short of breath compared to yesterday. He has occasional cough. No chest pain. He is able to get rid of his 100% nonrebreather facemask and tolerate his diet. He is taking approximately 50% of his diet provided. He remains on IV Solu-Medrol. He remains on long-term articulation with Xarelto. LDH and CRP are being monitored. The levels were quite elevated and the LDH today's 2785 and the CRP is 11.3. The BUN is a 54 with a creatinine of 1.09. Electrolytes are normal, d-dimer is at 6.88, and the CBC showing a white cell count of 15.8 with a hemoglobin of 13.7. No confusion. No altered mentation. Fluid balance is in order of -2.4 L. He is getting Lasix 40 mg IV every 24 hours. No other significant events overnight A 2020 the patient is being seen for a follow-up. Currently he is on a combination of high flow oxygen 6 L with an FiO2 of 90% and the same time the patient is on a nonrebreather facemask 100%. Pulse ox is currently ranging between 80% up to 88% and it fluctuates. Overnight, he became slightly more restless and agitated. He pulled on his masks and he became briefly hypoxic and had to be placed again. As stated, his overall respiratory status quite borderline. He is a case of Covid 19 related pneumonia. On IV Solu-Medrol 60 mg every 6 hours. In terms of his inflammatory markers today, the patient's LDH level is up to 3174 and his CRP level is also at 5.9. D-dimer is at 11.45. He is on anticoagulation and is receiving Xarelto on a daily basis . His chest x- ray is showing limited by system place, change compared to yesterday. On examination, he has adequate air entry bilaterally. His fluid balance over the past 24 hours has been in the order of -2.4 L and the patient is diuresing adequately. His body weight is also on the decline. His blood work today shows a BUN of 54 with a creatinine of 1.09 and the sodium level is at 139. His white cell count 15.8 with hemoglobin 13.7 and a adequate platelet count of 239. No other significant events otherwise for now. Active issue remains is ongoing respiratory insufficiency and high oxygen requirements. The patient is seen today 10/19/2020 in follow-up in the intensive care unit. He is currently sitting up in bed. Awake and alert in no acute distress. He is still requiring airflow high flow oxygen at 15 L/m and 90% FiO2 along with a nonrebreather mask to maintain O2 saturations in the high 80s low 90s. He did receive Tocilizumab. He is currently on Solu-Medrol 60 mg every 6 hours, bronchodilators. Anticoagulated with Xarelto. Receiving IV diuretics. Remains in a negative balance. Chest x-ray continues to show bilateral patchy infiltrates. No evidence of pneumothorax. White count 19.1. Hemoglobin 14.1. D-dimer 11.6. Sodium 137. Potassium 4.4. Creatinine 1.0. LDH 2962. C- reactive protein 5.4. The patient is seen today 10/20/2020 in follow-up in the intensive care unit. He is currently sitting up in bed. Awake and alert in no acute distress. He is still very weak and fatigued. He has very little reserve. Any little movement decreases his oxygen saturations. He is currently on AirVo high flow oxygen at 60 L and 90% FiO2 along with a nonrebreather mask. He's been on IV Solu-Medrol 60 every 6, Xarelto, bronchodilators. Received tocilizumab. Chest x-ray continues to show bilateral interstitial infiltrates with trace effusions. He remains on IV diuretics.. Plan to add Zosyn. Pro-calcitonin pending. White count up to 21.3. Hemoglobin 14.3. Sodium 136. Potassium 4.5. Creatinine 1.07. C-reactive protein less than 5.0. Objective - Vital Signs Vital signs: Vital Signs Temp 98.9 F 10/20/20 08:00 Pulse 76 10/20/20 11:00 Resp 29 H 10/20/20 11:10 BP 164/139 10/20/20 11:00 Pulse Ox 93 L 10/20/20 11:00 Intake & Output 10/19/20 10/20/20 10/20/20 18:59 06:59 18:59 Intake Total 600 250 Output Total 1255 1200 180 Balance -1255 -600 70 Weight 114.6 kg Intake: Oral 600 250 Output: Urine 1255 1200 180 Other: Voiding Method Indwelling Catheter Indwelling Catheter Indwelling Catheter - Exam GENERAL EXAM: Alert, pleasant 70-year-old gentleman, on AirVO high flow oxygen at 60 L/m and 90% FiO2 along with a nonrebreather mask., comfortable in no apparent distress. HEAD: Normocephalic. EYES: Normal reaction of pupils, equal size. NOSE: Clear with pink turbinates. THROAT: No erythema or exudates. NECK: No masses, no JVD. CHEST: No chest wall deformity. LUNGS: Equal air entry with few scattered rhonchi, crackles in the bases. CVS: S1 and S2 normal with no audible murmur, regular rhythm. ABDOMEN: No hepatosplenomegaly, normal bowel sounds, no guarding or rigidity. SPINE: No scoliosis or deformity SKIN: No rashes CENTRAL NERVOUS SYSTEM: No focal deficits, tone is normal in all 4 extremities. EXTREMITIES: There is no peripheral edema. No clubbing, no cyanosis. Peripheral pulses are intact. - Labs CBC & Chem 7: 10/20/20 04:02 10/20/20 04:02 Labs: Abnormal Lab Results - Last 24 Hours (Table) 10/19/20 10/19/20 10/20/20 Range/Units 16:32 20:24 04:02 WBC 21.3 H (3.8-10.6) k/uL Sodium (137-145) mmol/L BUN (9-20) mg/dL Glucose (74-99) mg/dL POC Glucose (mg/dL) 152 H 143 H (75-99) mg/dL Ferritin (22.0-322.0) ng/mL Total Bilirubin (0.2-1.3) mg/dL AST (17-59) U/L ALT (4-49) U/L Alkaline Phosphatase (38-126) U/L 10/20/20 10/20/20 10/20/20 Range/Units 04:02 07:11 11:35 WBC (3.8-10.6) k/uL Sodium 136 L (137-145) mmol/L BUN 57 H (9-20) mg/dL Glucose 135 H (74-99) mg/dL POC Glucose (mg/dL) 134 H 155 H (75-99) mg/dL Ferritin 1616.1 H (22.0-322.0) ng/mL Total Bilirubin 1.8 H (0.2-1.3) mg/dL AST 87 H (17-59) U/L ALT 262 H (4-49) U/L Alkaline Phosphatase 131 H (38-126) U/L Assessment and Plan Assessment: 1 Acute on chronic hypoxic respiratory failure secondary to acute CoVID 19 pneumonia and remains on AirVo high flow oxygen at 60 L and 90% FiO2 in addition to 100% nonrebreather facemask. - The patient is on IV Solu-Medrol - The patient has post Tocilizumab x2, no Remdesivir outside the window - Currently on 60 L of oxygen by nasal cannula with an FiO2 of 90% and he is also on 100% nonrebreather facemask - Anticoagulation with Xarelto. - Check pro calcitonin, add Zosyn 2 Elevated inflammatory markers secondary to above 3 Acute on chronic renal failure 4 Chronic hypoxic respiratory failure secondary to chronic obstructive pulmonary disease on home O2 at 2 L/m 5 Former smoker 6 History of coronary disease 7 Hyperlipidemia 8 Hypertension 9 History of PE/DVT anticoagulate with Xarelto 10 History of depression 11 Obstructive sleep apnea utilizing CPAP 12 History of peripheral vascular disease 13 BPH Plan: The patient was seen and evaluated by Dr. Manley Chest x-ray and labs reviewed IV Solu-Medrol 60 mg every 6 hours. Already received Tocilizumab x2 . Anticoagulated with Xarelto Check pro calcitonin, add Zosyn We will continue to follow Critical care time 38 minutes I, the cosigning physician, performed a history & physical examination of the patient. Lungs sounds with few scattered rhonchi, crackles in the bilateral posterior bases. Maintaining good O2 saturations in the 90s on AirVo high flow oxygen at 60 L and 90% FiO2 along with the 100% nonrebreather mask I discussed the assessment and plan of care with my nurse practitioner, Kandis Pepe. I attest to the above note as dictated by her.
[2020-10-20] MEDS: PIPERACILLIN-TAZOBACTAM 3.375 GM in SODIUM CHLORIDE 0.9% 100 ML IVPB SCH ×2 (15:56→23:25)
[2020-10-20 17:16] LABS: Glucose,Whole Blood 143 mg/dL (75-99)
[2020-10-20 19:39] LABS: LD Isoenzymes 1 17 % (19-38); LD Isoenzymes 2 31 % (30-43); LD Isoenzymes 3 25 % (16-26); LD Isoenzymes 4 13 % (3-12); LD Isoenzymes 5 14 % (3-14); Lactacte Dehydrogenase(LD) ISO 811 U/L (120-250)
[2020-10-20 20:34] LABS: Glucose,Whole Blood 155 mg/dL (75-99)
[2020-10-20] MEDS: MIRTAZAPINE 15 MG TAB PO SCH (20:48)
[2020-10-20] MEDS: NON FORMULARY DRUG (Rosuvastatin 20 MG Tablet) PO SCH (20:59)
[2020-10-21 04:15] LABS: HCT 44.5 % (39.0-53.0); MCH 31.8 pg (25.0-35.0); MCHC 33.7 g/dL (31.0-37.0); MCV 94.6 fL (80.0-100.0); Mean Platelet Volume 7.7; Platelet Count 202 k/uL (150-450); RBC 4.71 m/uL (4.30-5.90); RDW 14.5 % (11.5-15.5); WBC 27.3 k/uL (3.8-10.6)
[2020-10-21 04:34] LABS: ALT 296 U/L (4-49); AST 104 U/L (17-59); African American GFR (CKD) 77 (>60 ml/min/1.73 sqM); Albumin 3.6 g/dL (3.5-5.0); Alkaline Phosphatase 136 U/L (38-126); Anion Gap 7 mmol/L; Blood Urea Nitrogen 61 mg/dL (9-20); C Reactive Protein <5.0 mg/L (<10.0); Calcium 8.8 mg/dL (8.4-10.2); Carbon Dioxide 28 mmol/L (22-30); Chloride 103 mmol/L (98-107); Glucose 153 mg/dL (74-99); Non-African American GFR(CKD) 66 (>60 ml/min/1.73 sqM); Potassium 4.6 mmol/L (3.5-5.1); Sodium 138 mmol/L (137-145); Total Protein 6.6 g/dL (6.3-8.2)
[2020-10-21 05:59] LABS: Glucose,Whole Blood 141 mg/dL (75-99)
[2020-10-21] MEDS: methylPREDNISolone SOD SUCCI 125 MG/2 ML VIAL IV SCH ×4 (06:08→23:32)
[2020-10-21] MEDS: INSULIN ASPART (NovoLOG) 100 UNIT/ML VIAL SQ SCH ×4 (06:42→19:48)
[2020-10-21] MEDS: SYMBICORT 160-4.5 MCG INHALER INHALATION SCH ×2 (07:41→20:09)
[2020-10-21] MEDS: TIOTROPIUM 2.5 MCG INHALER INHALATION SCH (07:41)
[2020-10-21] MEDS: ALBUTEROL HFA INHALER INHALATION PRN ×3 (07:42→20:09)
[2020-10-21] MEDS: PIPERACILLIN-TAZOBACTAM 3.375 GM in SODIUM CHLORIDE 0.9% 100 ML IVPB SCH ×3 (08:39→23:31)
[2020-10-21] MEDS: levETIRAcetam 500 MG TAB PO SCH ×2 (08:40→19:49)
[2020-10-21] MEDS: PANTOPRAZOLE 40 MG TABLET PO SCH (08:40)
[2020-10-21] MEDS: METOPROLOL SUCCINATE (ER) 25 MG TAB.ER.24H PO SCH (08:40)
[2020-10-21] MEDS: guaiFENesin 600 MG TABLET.ER PO SCH ×2 (08:40→19:49)
[2020-10-21] MEDS: VENLAFAXINE HCL 75 MG TAB PO SCH ×2 (08:40→19:49)
[2020-10-21] MEDS: NON FORMULARY DRUG (Atomoxetine Hcl [Strattera] 60 MG Capsule) PO SCH (08:41)
[2020-10-21] MEDS: ASPIRIN 81 MG PO SCH (08:41)
[2020-10-21] MEDS: LORATADINE 10 MG TAB PO SCH (08:41)
[2020-10-21] MEDS: allopurinoL 300 MG TAB PO SCH (08:41)
[2020-10-21] MEDS: MULTIVITAMINS, THERA 1 EACH TAB PO SCH (08:41)
[2020-10-21] MEDS: NON FORMULARY DRUG (Atomoxetine Hcl [Strattera] 40 MG Capsule) PO SCH (08:41)
[2020-10-21] MEDS: CHOLECALCIFEROL 25 MCG (1000 IU) TABLET PO SCH (08:41)
[2020-10-21] MEDS: FUROSEMIDE 10 MG/ML 4 ML VIAL IV SCH (08:42)
[2020-10-21] MEDS: NEBIVOLOL 5 MG TAB PO SCH (08:42)
[2020-10-21] MEDS: RIVAROXABAN 20 MG TAB PO SCH (08:42)
--- NOTE | 2020-10-21 08:59 | XR ---
EXAMINATION TYPE: XR chest 1V portable DATE OF EXAM: 10/21/2020 COMPARISON: 10/20/2020 INDICATION: Covid TECHNIQUE: Single frontal view of the chest is obtained. FINDINGS: The heart size is normal. The pulmonary vasculature is normal. Mild subsegmental infiltrates are present, greater on the left. Findings are worsening over the inter [id number]. Stent is present on the right. PICC line enters on the left the tip in the brachiocephalic vein regio n IMPRESSION: 1. Worsening left lung infiltrate. Findings can be compatible with atypical pneumonia.
[2020-10-21 09:59] LABS: Ferritin 1639.2 ng/mL (22.0-322.0)
--- NOTE | 2020-10-21 11:35 | P.PN ---
Subjective Progress Note Date: 10/21/20 Principal diagnosis: CoVID 19 pneumonia This is a pleasant 70-year-old gentleman follows with Dr. Polo as his primary care provider. He has a history of coronary artery disease, peripheral vascular disease, congestive heart failure, hyperlipidemia, hypertension, PE/DVT, obstructive sleep apnea utilizing CPAP, chronic obstructive pulmonary disease on home oxygen at 2 L/m per nasal cannula. The patient is a 1 week history of increasing shortness of breath, nausea, vomiting, diarrhea, weakness and was seen at [facility] and tested positive for CoVID and was instructed to go to the emergency room. Chest x-ray reveals mild bilateral pulmonary interstitial infiltrates. He is seen today in consultation on the selective care unit. He is currently sitting up in bed. Awake and alert in no acute distress. He is maintaining good O2 saturations in the mid 90s on 2 L/m per nasal cannula. He is afebrile. Hemodynamically stable. White count 4.7. Hemoglobin 12.9. Platelet count 116. Lymphocytes 0.7. D-dimer 0.18. Sodium 139. Potassium 4.3. Creatinine 1.51. LDH 784. C-reactive protein 88.5. Pro Calcitonin 0.22. He's been initiated on Symbicort, albuterol. Endocrine related with Xarelto. On dexamethasone, multivitamin. The patient is seen today 10/11/2020 in follow-up on the selective care unit. He is currently sitting up in bed. Awake and alert in no acute distress. He is requiring 3 L nasal cannula to maintain O2 saturations 88% and higher. He is normally on 2 L at home. He denies any worsening shortness of breath. He continues with a loose nonproductive cough. He is maintained on dexamethasone, vitamin supplements. Anticoagulated with Xarelto. 10/12/2020 the patient is being seen in follow-up in the selective units. The patient has been diagnosed having Covid 19 related pneumonia. The patient is 70 years old and he is known to have coronary artery disease, peripheral vascular disease, congestive heart failure, hyperlipidemia, hypertension, PE/DVT, obstructive sleep apnea utilizing CPAP, chronic obstructive pulmonary disease on home oxygen at 2 L/m per nasal cannula. The patient is currently maintained on dexamethasone, vitamin supplements. Anticoagulated with Xarelto. The patient's pulmonary status overnight decompensated. The patient had the replacement high flow oxygen at 60 L with an FiO2 of 60%. Chest x-ray showed diffuse bilateral pulmonary infiltrates, mostly peripheral, consistent with Covid 19 pneumonia, probably there is some interval worsening. The patient has bilateral shoulder replacement. The blood gases from yesterday showed a pH of 7.45 with a pCO2 of 38 and pO2 of 63. His inflammatory markers from today are elevated. LDH level is up to 1228 and a CRP level is up to 85. Need 2020, the patient is still on high flow oxygen at 60 L with an FiO2 of 55%. Based on the significant drop in oxygenation, which The patient on steroids and the patient is currently on Decadron and we added Toci 400 mg and the patient received only 1 dose. He is going to receive his second dose of 400 mg today. Patient's oxygenation is stable. D-dimer is down at 0.33. His LDH level is at 1228 and the CRP is at 85. The chest x-ray from yesterday showed bilateral patchy pulmonary infiltrates. The patient has approximately 2 fibrillation and is maintained on Xarelto. The patient also is known to have coronary artery disease, peripheral vascular disease, congestive heart failure, hyperlipidemia, hypertension, PE/DVT, obstructive sleep apnea utilizing CPAP, chronic obstructive pulmonary disease on home oxygen at 2 L/m per nasal cannula. On 10/14/2020, the patient is gradually getting worse. He was desaturating despite being on high flow oxygen at 60 L and an FiO2 of 90% and he is also utilizing 100% nonrebreather facemask. Note that this patient has been treated aggressively. He received Decadron. He also received 2 doses of Tocilizumab. . The patient had a d-dimer of 1.06 and the rest of the inflammatory markers are still pending for now. Meanwhile, his labs are essentially within normal limits and his creatinine is down to 1.2. He remains on Decadron 6 mg IV every 24 hours. He is also on long-term antibiotic ventilation with Xarelto 20 mg by mouth daily. Note that the patient has previous history of DVT and pulmonary embolism. He has obstructive sleep apnea and he has COPD and is maintained on oxygen at 2 L per minute at home for chronic hypoxic respiratory failure. He has hypertension and hyperlipidemia congestion heart failure and peripheral vascular disease in addition to CABG as comorbid conditions. His last chest x- ray was from 09/14/2020 and a repeat chest x-ray will be ordered. His last chest x-ray showed diffuse breath and pulmonary infiltrates, mainly the peripheries consistent with Covid 19 related pneumonia. 10/15/2020, the patient is currently in the intensive care unit. Just like yesterday, he remains on high flow oxygen 6 L with an FiO2 of 90% and the patient is also utilizing 100% nonrebreather facemask. His current pulse ox is around 91%. He is comfortable. Is at the rate is in the low 30s. His chest x- ray from today showing stable bilateral pulmonary infiltrates without any major interval change compared to yesterday. His blood work from today shows no electrolyte abnormalities, creatinine stable at 1.2. His inflammatory markers are still pending. CRP is down to 29, LDH is pending for now. The d-dimer is at 1.85. In terms of therapy, and he is on IV Solu-Medrol 60 mg every 6 hours is also on multivitamins and he remains on long-term anticoagulation with Xarelto. He is lethargic. Oral intake is quite diminished at this point in time. No altered mentation. Is able to follow commands appropriately. He is weak. He is known to have COPD, previous bypass, hypertension and hyperlipidemia and peripheral vascular disease. He is also known to have CHF. He does have a remote history of DVT and pulmonary embolism. He remains in the ICU for now. He got transferred to the ICU yesterday because of ongoing difficulties with shortness of breath and hypoxemia. His echocardiogram from 2018 was essentially within normal limits and he had a normal ejection fraction. 10/16/2020, Rayo is on 60 L of oxygen along with an FiO2 of 90% and the patient is on 100% nonrebreather facemask. He is quite comfortable. He takes of his main for feeding purposes. During this time, he desaturates and is relatively asymptomatic while he desaturates. He goes down to the 80s and he recovers. He is not tachypneic. He is resting comfortably in bed. In terms of treatment, the patient remains on IV Solu Medrol 60 mg every 6 hours. He is on long-term anticoagulation with Xarelto. His chest x-ray from today is reviewed and is showing some limited improvement in the bilateral interstitial infiltrates seen earlier. In terms of his inflammatory markers, his LDH from yesterday and today has not been checked. His last LDH level was on 10/14/2020 was 1797. His CRP level has dropped down to 16.3. His d-dimer level is at 4.08. As mentioned, the patient is on anticoagulation and he is on Xarelto. He is also on Lasix and he is receiving Lasix 40 mg IV every 24 hours. Neck fluid balance over the past 24 hours has been -2.2 L and is responding nicely to diuretics and his weight is declined. No other significant issues. No altered mentation. No agitation. No confusion. No nausea. No vomiting. No diarrhea. No abdominal pain. No chest pain. He is known to have CAD, previous bypass, hypertension and hyperlipidemia and peripheral vascular disease. He also has history of DVT and pulmonary embolism remains on anticoagulation. 10/17/2020, the patient is on high flow oxygen at 60 L along with FiO2 of 90%. Chest x-ray showing infiltrates mainly on the left compared to the right. Lung volumes are essentially small. No major interval change compared to yesterday, the right lung is obviously better compared to the chest x-ray yesterday. In terms of his clinical status, the patient is feeling that he is less short of breath compared to yesterday. He has occasional cough. No chest pain. He is able to get rid of his 100% nonrebreather facemask and tolerate his diet. He is taking approximately 50% of his diet provided. He remains on IV Solu-Medrol. He remains on long-term articulation with Xarelto. LDH and CRP are being monitored. The levels were quite elevated and the LDH today's 2785 and the CRP is 11.3. The BUN is a 54 with a creatinine of 1.09. Electrolytes are normal, d-dimer is at 6.88, and the CBC showing a white cell count of 15.8 with a hemoglobin of 13.7. No confusion. No altered mentation. Fluid balance is in order of -2.4 L. He is getting Lasix 40 mg IV every 24 hours. No other significant events overnight A 2020 the patient is being seen for a follow-up. Currently he is on a combination of high flow oxygen 6 L with an FiO2 of 90% and the same time the patient is on a nonrebreather facemask 100%. Pulse ox is currently ranging between 80% up to 88% and it fluctuates. Overnight, he became slightly more restless and agitated. He pulled on his masks and he became briefly hypoxic and had to be placed again. As stated, his overall respiratory status quite borderline. He is a case of Covid 19 related pneumonia. On IV Solu-Medrol 60 mg every 6 hours. In terms of his inflammatory markers today, the patient's LDH level is up to 3174 and his CRP level is also at 5.9. D-dimer is at 11.45. He is on anticoagulation and is receiving Xarelto on a daily basis . His chest x- ray is showing limited by system place, change compared to yesterday. On examination, he has adequate air entry bilaterally. His fluid balance over the past 24 hours has been in the order of -2.4 L and the patient is diuresing adequately. His body weight is also on the decline. His blood work today shows a BUN of 54 with a creatinine of 1.09 and the sodium level is at 139. His white cell count 15.8 with hemoglobin 13.7 and a adequate platelet count of 239. No other significant events otherwise for now. Active issue remains is ongoing respiratory insufficiency and high oxygen requirements. The patient is seen today 10/19/2020 in follow-up in the intensive care unit. He is currently sitting up in bed. Awake and alert in no acute distress. He is still requiring airflow high flow oxygen at 15 L/m and 90% FiO2 along with a nonrebreather mask to maintain O2 saturations in the high 80s low 90s. He did receive Tocilizumab. He is currently on Solu-Medrol 60 mg every 6 hours, bronchodilators. Anticoagulated with Xarelto. Receiving IV diuretics. Remains in a negative balance. Chest x-ray continues to show bilateral patchy infiltrates. No evidence of pneumothorax. White count 19.1. Hemoglobin 14.1. D-dimer 11.6. Sodium 137. Potassium 4.4. Creatinine 1.0. LDH 2962. C- reactive protein 5.4. The patient is seen today 10/20/2020 in follow-up in the intensive care unit. He is currently sitting up in bed. Awake and alert in no acute distress. He is still very weak and fatigued. He has very little reserve. Any little movement decreases his oxygen saturations. He is currently on AirVo high flow oxygen at 60 L and 90% FiO2 along with a nonrebreather mask. He's been on IV Solu-Medrol 60 every 6, Xarelto, bronchodilators. Received tocilizumab. Chest x-ray continues to show bilateral interstitial infiltrates with trace effusions. He remains on IV diuretics.. Plan to add Zosyn. Pro-calcitonin pending. White count up to 21.3. Hemoglobin 14.3. Sodium 136. Potassium 4.5. Creatinine 1.07. C-reactive protein less than 5.0. The patient is seen today 10/21/2020 in follow-up in the intensive care unit. He is currently awake and alert in no acute distress. Resting fairly comfortably in bed. Still quite fatigued and weak. Slightly better today compared to yesterday. Remains on AirVo high flow oxygen at 60 L and 90% FiO2 and a nonrebreather mask to maintain O2 saturation in the low to mid 80s. He's been afebrile. White count 27.3. Hemoglobin 15.0. D-dimer 9.89. Sodium 138. Potassium 4.6. Creatinine 1.11. LDH 2774. C-reactive protein less than 5.0. He's been on IV Solu-Medrol 60 every 6, Xarelto, bronchodilators. Received tocilizumab. Chest x-ray shows some worsening left lung infiltrate. Bibasilar patchy infiltrates. He was initiated on Zosyn. Procalcitonin 0.09. He remains on daily IV Lasix. Currently in a negative balance. Objective - Vital Signs Vital signs: Vital Signs Temp 97.9 F 10/21/20 08:00 Pulse 73 10/21/20 08:00 Resp 28 H 10/21/20 08:00 BP 119/81 10/21/20 08:00 Pulse Ox 81 L 10/21/20 08:00 Intake & Output 10/20/20 10/21/20 10/21/20 18:59 06:59 18:59 Intake Total 1130 100 Output Total 1230 895 100 Balance -100 -795 -100 Weight 112.5 kg Intake: IV 100 Piperacillin-Tazobactam 3 100 .375 gm In Sodium Chloride 0.9% 100 ml @ 25 mls/hr IVPB Q8HR [facility] Rx# :[id number] Intake, IV Titration 100 Amount Piperacillin-Tazobactam 3 100 .375 gm In Sodium Chloride 0.9% 100 ml @ 25 mls/hr IVPB Q8HR [facility] Rx# :[id number] Oral 1030 Output: Urine 1230 895 100 Other: Voiding Method Indwelling Catheter Indwelling Catheter Indwelling Catheter - Exam GENERAL EXAM: Alert, pleasant 70-year-old gentleman, on AirVO high flow oxygen at 60 L/m and 90% FiO2 along with a nonrebreather mask., comfortable in no apparent distress. HEAD: Normocephalic. EYES: Normal reaction of pupils, equal size. NOSE: Clear with pink turbinates. THROAT: No erythema or exudates. NECK: No masses, no JVD. CHEST: No chest wall deformity. LUNGS: Equal air entry with few scattered rhonchi, crackles in the bases. CVS: S1 and S2 normal with no audible murmur, regular rhythm. ABDOMEN: No hepatosplenomegaly, normal bowel sounds, no guarding or rigidity. SPINE: No scoliosis or deformity SKIN: No rashes CENTRAL NERVOUS SYSTEM: No focal deficits, tone is normal in all 4 extremities. EXTREMITIES: There is no peripheral edema. No clubbing, no cyanosis. Peripheral pulses are intact. - Labs CBC & Chem 7: 10/21/20 03:20 10/21/20 03:20 Labs: Abnormal Lab Results - Last 24 Hours (Table) 10/16/20 10/20/20 10/20/20 Range/Units 04:30 11:35 17:15 WBC (3.8-10.6) k/uL D-Dimer (<0.60) mg/L FEU BUN (9-20) mg/dL Glucose (74-99) mg/dL POC Glucose (mg/dL) 155 H 143 H (75-99) mg/dL Ferritin (22.0-322.0) ng/mL Total Bilirubin (0.2-1.3) mg/dL AST (17-59) U/L ALT (4-49) U/L Alkaline Phosphatase (38-126) U/L Lactate Dehydrogenase (313-618) U/L LD Isoenzymes 811 H (120-250) U/L LD 1 17 L (19-38) % LD 4 13 H (3-12) % CK-MB (CK-2) (0.0-2.4) ng/mL 10/20/20 10/21/20 10/21/20 Range/Units 20:32 03:20 03:20 WBC 27.3 H (3.8-10.6) k/uL D-Dimer (<0.60) mg/L FEU BUN 61 H (9-20) mg/dL Glucose 153 H (74-99) mg/dL POC Glucose (mg/dL) 155 H (75-99) mg/dL Ferritin 1639.2 H (22.0-322.0) ng/mL Total Bilirubin 2.0 H (0.2-1.3) mg/dL AST 104 H (17-59) U/L ALT 296 H (4-49) U/L Alkaline Phosphatase 136 H (38-126) U/L Lactate Dehydrogenase (313-618) U/L LD Isoenzymes (120-250) U/L LD 1 (19-38) % LD 4 (3-12) % CK-MB (CK-2) (0.0-2.4) ng/mL 10/21/20 10/21/20 10/21/20 Range/Units 03:20 03:20 03:20 WBC (3.8-10.6) k/uL D-Dimer 9.89 H (<0.60) mg/L FEU BUN (9-20) mg/dL Glucose (74-99) mg/dL POC Glucose (mg/dL) (75-99) mg/dL Ferritin (22.0-322.0) ng/mL Total Bilirubin (0.2-1.3) mg/dL AST (17-59) U/L ALT (4-49) U/L Alkaline Phosphatase (38-126) U/L Lactate Dehydrogenase 2774 H (313-618) U/L LD Isoenzymes (120-250) U/L LD 1 (19-38) % LD 4 (3-12) % CK-MB (CK-2) 3.0 H (0.0-2.4) ng/mL 10/21/20 Range/Units 05:57 WBC (3.8-10.6) k/uL D-Dimer (<0.60) mg/L FEU BUN (9-20) mg/dL Glucose (74-99) mg/dL POC Glucose (mg/dL) 141 H (75-99) mg/dL Ferritin (22.0-322.0) ng/mL Total Bilirubin (0.2-1.3) mg/dL AST (17-59) U/L ALT (4-49) U/L Alkaline Phosphatase (38-126) U/L Lactate Dehydrogenase (313-618) U/L LD Isoenzymes (120-250) U/L LD 1 (19-38) % LD 4 (3-12) % CK-MB (CK-2) (0.0-2.4) ng/mL Assessment and Plan Assessment: 1 Acute on chronic hypoxic respiratory failure secondary to acute CoVID 19 pneumonia and remains on AirVo high flow oxygen at 60 L and 90% FiO2 in addition to 100% nonrebreather facemask. 2 Elevated inflammatory markers secondary to above 3 Acute on chronic renal failure 4 Chronic hypoxic respiratory failure secondary to chronic obstructive pulmonary disease on home O2 at 2 L/m 5 Former smoker 6 History of coronary disease 7 Hyperlipidemia 8 Hypertension 9 History of PE/DVT anticoagulate with Xarelto 10 History of depression 11 Obstructive sleep apnea utilizing CPAP 12 History of peripheral vascular disease 13 BPH Plan: The patient was seen and evaluated by Dr. Manley Chest x-ray and labs reviewed IV Solu-Medrol 60 mg every 6 hours. Already received Tocilizumab x2 . Anticoagulated with Xarelto Continue Zosyn Condition guarded We will continue to follow Critical care time 35 minutes I, the cosigning physician, performed a history & physical examination of the patient. Lungs sounds with few scattered rhonchi, crackles in the bilateral posterior bases. Maintaining good O2 saturations in the 90s on AirVo high flow oxygen at 60 L and 90% FiO2 along with the 100% nonrebreather mask I discussed the assessment and plan of care with my nurse practitioner, Kandis Pepe. I attest to the above note as dictated by her.
[2020-10-21 11:44] LABS: Glucose,Whole Blood 158 mg/dL (75-99)
--- NOTE | 2020-10-21 13:06 | P.PN ---
Subjective Progress Note Date: 10/21/20 HISTORY OF PRESENT ILLNESS This is a 70 years old male patient of Dr. Polo with past medical history of pulmonary embolism diagnosed in [place] 2 years ago, history of lower extremity DVT, coronary artery disease no stent, history of heart failure unknown if systolic or diastolic, COPD, hyperlipidemia, hypertension, osteoarthritis, prostate cancer, skin disorder,'s obstructive sleep apnea on CPAP, subclavian steal syndrome with stent placement, history of recent penile implant on 07/27/2016. Patient has chronic shortness of breath that has been going on for the past 2 years since the diagnosis of pulmonary embolism with O2 requirements at 2 L nasal cannula Patient is currently on maintenance dose of xarelto at 10 mg daily. He presents emergency room secondary to worsening dyspnea, x 7 days without any medical intervention prior to this, He was seen in the Emergency room for the shortness of breath, worsening dyspnea and exertion, and was found to be SARS cov 2 positive. Chest x-ray, shows bilateral pulmonary interstitial infiltrates compared to old exam, with a similar atelectasis. Poor inspiration, no hilar masses laboratory shows hemoglobin of 12.9, WBC count of 7, creatinine of 1.47, iron of 1.2, glucose 120 CRP 88, pro-calcitonin slightly elevated 0.22. Patient denies any chronic prednisone exposure, Consult were made with pulmonary, Dr. Ramos, pulse oximetry would be 9 PT 1697 at 2-3 L nasal cannula, blood pressure of 129/66. 10/11: Patient was seen for follow-up today, he is a little bit tachypnea, very small amount of labored breathing only on exertion, no conversational dyspnea, O2 at 2 L, sats 95%, no clearance from pulmonary medicine are stable were rounding today, no cough, no pleurisy, no chest pain no palpitations, creatinine at 1.5 today, electrolytes are normal, wbc of 4.7, LDH of 784, ferritin 533 patient is on IV dexamethasone maintained on Xarelto, no new treatment from pulmonary critical care today, currently stable 10/12: A-Team is called during the night due to hypoxia and patient was started on AirVo. Respiratory rate is been in the 40s, heart rate 74, afebrile, pulse ox 96%. Chest x-ray from yesterday revealed patchy. Hilar and basilar infiltrates persist and have progressed slightly in the interval. Repeat blood work reveals WBC 6.8, hemoglobin 12.4, platelet count 135. LDH 1228. C- reactive protein 85.1. The patient has developed increasing difficulty with breathing. He denies having any chest pain. He states he could not sleep through the night. 10/13: Patient states that his breathing status is about the same as yesterday or little bit more difficult. He denies any coughing up blood. He denies any abdominal pain, nausea or vomiting, no diarrhea. Patient remains on Arava with pulse ox of 88-90%. Afebrile, heart rate 69, respiratory rate 40, blood pressure 137/76. Patient is status post 2 doses of Tocilizumab. patient is followed closely by pulmonary medicine. 10/14: Patient is currently on AirVo and nonrebreather but states that he is feeling better today and that his breathing is better. He has been afebrile, heart rate 72, respiratory rate 36, blood pressure 130/70, pulse ox 90%. He denies having abdominal pain, nausea vomiting or diarrhea. He remains on Solu- Medrol 60 mg IV every 6 hours. 10/15: Patient was transferred to the ICU per Dr. Wright. He is currently on AirVo only at time of evaluation and is eating his breakfast. Patient has been maintained on Arava plus nonrebreather. His breathing status appears to be improved from yesterday. His pulse ox is 88%. Afebrile, heart rate 76, respiratory rate 25, blood pressure 131/81. Repeat chest x-ray reveals stable chest. Repeat blood work reveals normal CBC. D-dimer 1.85. C-reactive protein 29. LDH is pending. Ferritin level 1340.6. Patient is scheduled for PICC line insertion today. Lasix 40 mg IV push ordered today by pulmonary medicine. Patient is continued on Solu-Medrol 60 mg every 6 hours. Patient not receiving any antibiotics at this time. 10/16: Patient remains in the intensive care unit. He was off nonrebreather and only on AirVo yesterday most of the day. Now he is on both AirVo and nonrebreather and taking the nonrebreather on and off as he needs it. He is eating 50% of his meals. He has been afebrile, heart rate 69, respiratory rate 34, blood pressure 142/80, pulse ox 88% on both AirVo and nonrebreather. Repeat blood work reveals W BC 13.5, hemoglobin 13.6, platelet count 247. Electrolytes normal. BUN 52 and creatinine 1.2. Blood sugars running between 120 975. Total bilirubin 1.0, AST 111, ALT 137, alkaline phosphatase 80. C-reactive p rotein 16.3, CK 65. Repeat chest x-ray reveals bilateral lower lobe infiltrate and small effusion with coarsened interstitium correlate for venous congestion versus interstitial pneumonia. Patient surprisingly feels his breathing is stable. He has no new complaints. 10/17: Patient remains in intensive care unit. He has been off the nonrebreather for the past hour and a half with only AirVo with pulse ox in the high 80s. He has been afebrile, heart rate in the 70s, blood pressure 142/86, respiratory rate in 30s. Patient verbalizes that his breathing status is improving. Repeat blood work reveals WBC 15.8, hemoglobin 13.7, platelet count 239. Electrolytes normal. BUN 54 and creatinine 1.09. Blood sugars running between 120 765. Total bilirubin 1.5, AST 195, ALT 304, alkaline phosphatase 92, LDH 2785. CK 51, C-reactive protein 11.3. Repeat chest x-ray reveals mild interval pro gression in the lung infiltrates within the right lung. Left lung is stable. No change in small bilateral pleural effusions. 10/18: Patient remains in intensive care unit. He is seen today on AirVo and nonrebreather and pulse ox has been marginal in the low to mid 80s. Heart rate is in the 70s, respiratory rate in the 30s, blood pressure 136/87. He has been afebrile. Repeat blood work reveals WBC 18.4. Electrolytes normal, BUN 59 and creatinine 1.03. Blood sugars running between 126 and 166. Ferritin level 1817. D-dimer 11.45. Total bilirubin 1.7, AST 128, ALT 309, alkaline phosphat ase 121. LDH 3174. CK 98, C-reactive protein 5.9. Repeat chest x-ray reveals left perihilar and basilar infiltrates persist 10/19: Patient's breathing status remains about the same. He has been afebrile, heart rate 70s, respiratory rate 29, blood pressure 143/87. Pulse ox is running mid to high 80s with nonrebreather and high flow nasal cannula. WBC 19.1, hemoglobin 14.1, platelet count 247. D-dimer 11.64. Electrolytes normal. BUN 55 and creatinine 1.05. Blood sugars running between 124 and 197. Ferritin 1583. Total bilirubin 1.4, AST 99, ALT 266, alk phos was 123. LDH 2962. C-re active protein 5.4. Repeat chest x-ray shows no pneumothorax. Interstitial and patchy bilateral infiltrates. 10/20: Patient remains in the intensive care unit and he is currently on nonrebreather and high flow nasal cannula. Pulse ox is running 86-91%. He has been afebrile, heart rate in the 70s, respiratory rate 29, blood pressure 145/81. WBC 21.3. Sodium 136, BUN 57 and creatinine 1.07. Blood sugars running between 100 3459. Ferritin level 1616. Total bilirubin 1.8, AST 87, ALT 262, alkaline phosphatase 131. C-reactive protein normal at less than 5. Repeat chest x-ray reveals relatively stable with interstitial infiltrates and possible trace effusions. 10/21:patient remains in the intensive care unit. He is on Arava oh and nonrebreather with pulse ox in the mid 80s. Patient has been afebrile.Heart rate in the 70s and 60s, respiratory rate in the mid to high 20s, pulse ox a nywhere between 81-89%, blood pressure 119/81. WBC 27.3, hemoglobin 15, platelet count 202. Electrolytes normal, BUN 61 and creatinine 1.11. Blood sugars running between 141 and 158. Ferritin level 1639, total bilirubin 2.0, AST 104, ALT 296, alkaline phosphatase 136. LDH 2774. C-reactive protein less than 5. Patient is continued on Zosyn, IV Solu-Medrol heart rate in the 60s and 70s, respiratory rate in the 20s n and IV Lasix. REVIEW OF SYSTEMS Constitutional: Denies fever, no chills, no night sweats. Generalized weakness, fatigue. EENT: No headache. No dizziness. No nasal drainage or congestion. No epistaxis. No sore throat. Lungs: Reports shortness of breathcontinued, reports cough, no sputum production. No wheezing. reports dyspnea with exertion. Cardiovascular: No chest pain, no lower extremity edema. No palpitations. No paroxysmal nocturnal dyspnea. No orthopnea. No lightheadedness or dizziness. No syncopal episodes. Abdominal: No abdominal pain. No nausea, vomiting. No diarrhea. No constipation. No bloody or tarry stools.. No loss of appetite. Genitourinary: No dysuria, increased frequency, urgency. No urinary retention. Musculoskeletal: No myalgias. No muscle weakness, no gait dysfunction, no frequent falls. No back pain. No neck pain. Integumentary: No wounds, no lesions. No rash or pruritus. No unusual bruising. High flow nasal cannula Neurologic: No aphasia. No facial droop. No change in mentation. No head injury. No headache. Psychiatric: No depression. No anxiety. No mood swings. Reports insomnia. Endocrine: Noted abnormal blood sugars. No weight change. PHYSICAL EXAMINATION Gen: This is a 70-year-old male. He is resting in ICU bed and appears to be comfortable at rest. Patient is on AirVo and nonrebreather. HEENT: Head is atraumatic, normocephalic. Pupils equal, round. Sclerae is anicteric. NECK: Supple. No JVD. No lymphadenopathy. No thyromegaly. LUNGS: Few scattered rhonchi and scattered expiratory wheezing. Mild intercostal retractions. HEART: Regular rate and rhythm. No murmur. ABDOMEN: Soft. Bowel sounds are present. No masses. No tenderness. EXTREMITIES: No pedal edema. No calf tenderness. Dorsalis pedis palpable bilaterally. NEUROLOGICAL: Patient is awake, alert and oriented x3. Cranial nerves 2 through 12 are grossly intact. ASSESSMENT AND PLAN 1. Acute SARS COV2, infection with acute hypoxic respiratory failure. Continue airflow, pulmonary consult appreciated. Due to cytokine storm and worsening hypoxia, we're going to monitor him for worsening hypoxemia as well as respiratory distress, has history of appropriate for aggressive treatment. Continue Solu-Medrol 60 mg every 6 hours, albuterol inhaler as needed, Symbicort inhaler twice daily, Lasix 40 mg IV daily. Continue vitamin D. Patient is status post 2 doses of Tocilizumab. Incentive spirometry. 2. Chronic anticoagulation, secondary to history of DVT in the past, long-term anticoagulation using Xarelto, which is maintained 3. History of DVT of the right leg in December 2013, resolved on Lasix 40 mg daily, 4. COPD. Continue albuterol- Atrovent as needed . Continue Symbicort twice daily 5 Hyperlipidemia. Continue Crestor daily. 6 Subclavian steal syndrome status post stent in the right carotid. 7 Benign prostatic hypertrophy. Monitor for urinary retention. Continue Flomax daily 8 History of coronary artery disease with previous myocardial infarction. 9 Obstructive Sleep apnea. Patient to continue his own CPAP machine. 10 Gastroesophageal reflux disease and gastric intestinal prophylaxis. Continu e Nexium or equivalent. 11. Hypertension. Continue bystolic 10 mg daily . Hold aldactone. 12. Depression. Continue Cymbalta 150 mg twice daily. 13. History of ADHD. Strattera on hold. 13. Chronic kidney disease stage III, stable 14. Chronic systolic heart failure and ischemic cardiomyopathy with prior ejection fraction 40%, Lasix 40 mg IV daily aspirin 81 mg metoprolol 15 CODE STATUS full code DISCHARGE PLAN Most likely return home. Impression and plan of care have been directed as dictated by the signing physician. Nena Frausto nurse practitioner acting as scribe for signing physician. Objective - Vital Signs Vital signs: Vital Signs Temp 97.9 F 10/21/20 08:00 Pulse 73 10/21/20 08:00 Resp 28 H 10/21/20 08:00 BP 119/81 10/21/20 08:00 Pulse Ox 81 L 10/21/20 08:00 Intake & Output 10/20/20 10/21/20 10/21/20 18:59 06:59 18:59 Intake Total 1130 100 Output Total 1230 895 100 Balance -100 -795 -100 Weight 112.5 kg Intake: IV 100 Piperacillin-Tazobactam 3 100 .375 gm In Sodium Chloride 0.9% 100 ml @ 25 mls/hr IVPB Q8HR [facility] Rx# :[id number] Intake, IV Titration 100 Amount Piperacillin-Tazobactam 3 100 .375 gm In Sodium Chloride 0.9% 100 ml @ 25 mls/hr IVPB Q8HR [facility] Rx# :[id number] Oral 1030 Output: Urine 1230 895 100 Other: Voiding Method Indwelling Catheter Indwelling Catheter - Labs CBC & Chem 7: 10/21/20 03:20 10/21/20 03:20 Labs: Abnormal Lab Results - Last 24 Hours (Table) 10/16/20 10/20/20 10/20/20 Range/Units 04:30 04:02 11:35 WBC (3.8-10.6) k/uL D-Dimer (<0.60) mg/L FEU BUN (9-20) mg/dL Glucose (74-99) mg/dL POC Glucose (mg/dL) 155 H (75-99) mg/dL Ferritin 1616.1 H (22.0-322.0) ng/mL Total Bilirubin (0.2-1.3) mg/dL AST (17-59) U/L ALT (4-49) U/L Alkaline Phosphatase (38-126) U/L Lactate Dehydrogenase (313-618) U/L LD Isoenzymes 811 H (120-250) U/L LD 1 17 L (19-38) % LD 4 13 H (3-12) % CK-MB (CK-2) (0.0-2.4) ng/mL 10/20/20 10/20/20 10/21/20 Range/Units 17:15 20:32 03:20 WBC 27.3 H (3.8-10.6) k/uL D-Dimer (<0.60) mg/L FEU BUN (9-20) mg/dL Glucose (74-99) mg/dL POC Glucose (mg/dL) 143 H 155 H (75-99) mg/dL Ferritin (22.0-322.0) ng/mL Total Bilirubin (0.2-1.3) mg/dL AST (17-59) U/L ALT (4-49) U/L Alkaline Phosphatase (38-126) U/L Lactate Dehydrogenase (313-618) U/L LD Isoenzymes (120-250) U/L LD 1 (19-38) % LD 4 (3-12) % CK-MB (CK-2) (0.0-2.4) ng/mL 10/21/20 10/21/20 10/21/20 Range/Units 03:20 03:20 03:20 WBC (3.8-10.6) k/uL D-Dimer 9.89 H (<0.60) mg/L FEU BUN 61 H (9-20) mg/dL Glucose 153 H (74-99) mg/dL POC Glucose (mg/dL) (75-99) mg/dL Ferritin 1639.2 H (22.0-322.0) ng/mL Total Bilirubin 2.0 H (0.2-1.3) mg/dL AST 104 H (17-59) U/L ALT 296 H (4-49) U/L Alkaline Phosphatase 136 H (38-126) U/L Lactate Dehydrogenase (313-618) U/L LD Isoenzymes (120-250) U/L LD 1 (19-38) % LD 4 (3-12) % CK-MB (CK-2) 3.0 H (0.0-2.4) ng/mL 10/21/20 10/21/20 Range/Units 03:20 05:57 WBC (3.8-10.6) k/uL D-Dimer (<0.60) mg/L FEU BUN (9-20) mg/dL Glucose (74-99) mg/dL POC Glucose (mg/dL) 141 H (75-99) mg/dL Ferritin (22.0-322.0) ng/mL Total Bilirubin (0.2-1.3) mg/dL AST (17-59) U/L ALT (4-49) U/L Alkaline Phosphatase (38-126) U/L Lactate Dehydrogenase 2774 H (313-618) U/L LD Isoenzymes (120-250) U/L LD 1 (19-38) % LD 4 (3-12) % CK-MB (CK-2) (0.0-2.4) ng/mL
[2020-10-21 17:05] LABS: Glucose,Whole Blood 134 mg/dL (75-99)
[2020-10-21 19:45] LABS: Glucose,Whole Blood 158 mg/dL (75-99)
[2020-10-21] MEDS: MIRTAZAPINE 15 MG TAB PO SCH (19:49)
[2020-10-21] MEDS: NON FORMULARY DRUG (Rosuvastatin 20 MG Tablet) PO SCH (19:50)
[2020-10-22 04:29] LABS: Basophils % (A) 0 %; Eosinophils # (A) 0.2 k/uL (0-0.7); Eosinophils % (A) 1 %; HCT 43.2 % (39.0-53.0); HGB 14.3 gm/dL (13.0-17.5); Lymphocytes # (A) 0.1 k/uL (1.0-4.8); Lymphocytes % (A) 1 %; MCH 31.4 pg (25.0-35.0); MCHC 33.1 g/dL (31.0-37.0); MCV 94.7 fL (80.0-100.0); Mean Platelet Volume 7.8; Monocytes # (A) 0.2 k/uL (0-1.0); Monocytes % (A) 1 %; Neutrophils # (A) 22.1 k/uL (1.3-7.7); Neutrophils % (A) 97 %; Platelet Count 173 k/uL (150-450); RBC 4.56 m/uL (4.30-5.90); RDW 14.7 % (11.5-15.5); WBC 22.7 k/uL (3.8-10.6)
[2020-10-22 04:47] LABS: Albumin 3.4 g/dL (3.5-5.0); C Reactive Protein 5.1 mg/L (<10.0); Calcium 8.8 mg/dL (8.4-10.2); Potassium 4.7 mmol/L (3.5-5.1); Total Bilirubin 2.3 mg/dL (0.2-1.3); Total Protein 6.3 g/dL (6.3-8.2)
[2020-10-22] MEDS ORDERED: ALPRAZolam 0.25 MG TAB PO PRN (06:31)
[2020-10-22] MEDS: methylPREDNISolone SOD SUCCI 125 MG/2 ML VIAL IV SCH ×4 (06:40→23:12)
[2020-10-22] MEDS: INSULIN ASPART (NovoLOG) 100 UNIT/ML VIAL SQ SCH ×4 (06:42→20:18)
--- NOTE | 2020-10-22 07:17 | XR ---
EXAMINATION TYPE: XR chest 1V portable DATE OF EXAM: 10/22/2020 COMPARISON: 10/21/2020 INDICATION: Covid TECHNIQUE: Single frontal view of the chest is obtained. FINDINGS: The heart size is normal. The pulmonary vasculature is normal. Mild increased lung markings are present. This appears to be predominantly groundglass opacities. A s mall nodules at the left lung base. Lung infiltrates may be slightly greater comparison. There is bl unting of the right costophrenic angle IMPRESSION: 1. Mild diffuse increase lung opacities
[2020-10-22] MEDS: SYMBICORT 160-4.5 MCG INHALER INHALATION SCH ×2 (07:44→20:14)
[2020-10-22] MEDS: TIOTROPIUM 2.5 MCG INHALER INHALATION SCH (07:44)
[2020-10-22] MEDS: ALBUTEROL HFA INHALER INHALATION PRN ×4 (07:45→20:14)
[2020-10-22] MEDS: RIVAROXABAN 20 MG TAB PO SCH (08:24)
[2020-10-22] MEDS: PIPERACILLIN-TAZOBACTAM 3.375 GM in SODIUM CHLORIDE 0.9% 100 ML IVPB SCH ×3 (08:24→23:11)
[2020-10-22] MEDS: NEBIVOLOL 5 MG TAB PO SCH (08:25)
[2020-10-22] MEDS: allopurinoL 300 MG TAB PO SCH (08:25)
[2020-10-22] MEDS: VENLAFAXINE HCL 75 MG TAB PO SCH ×2 (08:25→20:30)
[2020-10-22] MEDS: CHOLECALCIFEROL 25 MCG (1000 IU) TABLET PO SCH (08:26)
[2020-10-22] MEDS: ASPIRIN 81 MG PO SCH (08:26)
[2020-10-22] MEDS: PANTOPRAZOLE 40 MG TABLET PO SCH (08:26)
[2020-10-22] MEDS: guaiFENesin 600 MG TABLET.ER PO SCH ×2 (08:26→20:30)
[2020-10-22] MEDS: MULTIVITAMINS, THERA 1 EACH TAB PO SCH (08:26)
[2020-10-22] MEDS: levETIRAcetam 500 MG TAB PO SCH ×2 (08:26→20:30)
[2020-10-22] MEDS: FUROSEMIDE 10 MG/ML 4 ML VIAL IV SCH (08:26)
[2020-10-22] MEDS: LORATADINE 10 MG TAB PO SCH (08:27)
[2020-10-22] MEDS: NON FORMULARY DRUG (Atomoxetine Hcl [Strattera] 40 MG Capsule) PO SCH (08:27)
[2020-10-22] MEDS: METOPROLOL SUCCINATE (ER) 25 MG TAB.ER.24H PO SCH (08:27)
[2020-10-22] MEDS: NON FORMULARY DRUG (Atomoxetine Hcl [Strattera] 60 MG Capsule) PO SCH (08:27)
[2020-10-22 09:26] LABS: ABG Base Excess 2.8 mmol/L; ABG HCO3 26 mmol/L (21-25); ABG Oxygen Saturation 80.3 % (94-97); ABG PCO2 36 mmHg (35-45); ABG PH 7.48 (7.35-7.45); ABG TCO2 27 mmol/L (19-24); Allen Test Performed? Yes
[2020-10-22 09:27] LABS: ABG PO2 45 mmHg (83-108)
[2020-10-22 10:30] LABS: Ferritin 1475.9 ng/mL (22.0-322.0)
[2020-10-22 11:23] LABS: Glucose,Whole Blood 155 mg/dL (75-99)
--- NOTE | 2020-10-22 12:09 | P.PN ---
Subjective Progress Note Date: 10/22/20 Principal diagnosis: Acute hypoxic respiratory failure secondary to covid 19 pneumonitis. The patient is seen today 10/20/2020 in follow-up in the intensive care unit. He is currently sitting up in bed. Awake and alert in no acute distress. He is still very weak and fatigued. He has very little reserve. Any little movement decreases his oxygen saturations. He is currently on AirVo high flow oxygen at 60 L and 90% FiO2 along with a nonrebreather mask. He's been on IV Solu-Medrol 60 every 6, Xarelto, bronchodilators. Received tocilizumab. Chest x-ray continues to show bilateral interstitial infiltrates with trace effusions. He remains on IV diuretics.. Plan to add Zosyn. Pro-calcitonin pending. White count up to 21.3. Hemoglobin 14.3. Sodium 136. Potassium 4.5. Creatinine 1.07. C-reactive protein less than 5.0. The patient is seen today 10/21/2020 in follow-up in the intensive care unit. He is currently awake and alert in no acute distress. Resting fairly comfortably in bed. Still quite fatigued and weak. Slightly better today compared to yesterday. Remains on AirVo high flow oxygen at 60 L and 90% FiO2 and a nonrebreather mask to maintain O2 saturation in the low to mid 80s. He's been afebrile. White count 27.3. Hemoglobin 15.0. D-dimer 9.89. Sodium 138. Potassium 4.6. Creatinine 1.11. LDH 2774. C-reactive protein less than 5.0. He's been on IV Solu-Medrol 60 every 6, Xarelto, bronchodilators. Received tocilizumab. Chest x-ray shows some worsening left lung infiltrate. Bibasilar patchy infiltrates. He was initiated on Zosyn. Procalcitonin 0.09. He remains on daily IV Lasix. Currently in a negative balance. Patient was reevaluated today on 10/22/2020, remains in the ICU, looks frail and chronically ill, looks weak, remains on high flow oxygen via airvo he is on 80% which was increased earlier to 90% and he is also on 60 L flow. After evaluating the patient today, I transitioned the patient to BiPAP, 100% FiO2 with IPAP of 14 EPAP of 16. Chest x-ray continues to show bilateral interstitial infiltrates, not much of a change in the last few days. ABG earlier on 80% FiO2 showed a pO2 of 45 pCO2 of 35 pH of 7.47. Clinically, the patient is comfortable, does not seem to be in distress, and I am not planning to proceed to intubation and mechanical ventilation at least not at this point. However if his condition gets clinically worse, would definitely recommend intubation and mechanical ventilation. Basic metabolic profile today is relatively normal BUN is 64 creatinine 1.17. His inflammatory markers remained relatively elevated. LDH is 2416, C-reactive protein is 5.1 WBC count is 22.7 hemoglobin is 14.3. Patient remains on Solu-Medrol, Xarelto, bronchodilators, and he received actemra. He also remains on Zosyn empirically. Objective - Vital Signs Vital signs: Vital Signs Temp 97.9 F 10/22/20 08:00 Pulse 84 10/22/20 10:00 Resp 23 10/22/20 11:24 BP 133/85 10/22/20 10:00 Pulse Ox 100 10/22/20 10:00 Intake & Output 10/21/20 10/22/20 10/22/20 18:59 06:59 18:59 Intake Total 300 100 340 Output Total 1225 1010 575 Balance -925 -910 -535 Weight 110.5 kg Intake: IV 200 100 Piperacillin-Tazobactam 3 200 100 .375 gm In Sodium Chloride 0.9% 100 ml @ 25 mls/hr IVPB Q8HR [facility] Rx# :[id number] Intake, IV Titration 100 Amount Piperacillin-Tazobactam 3 100 .375 gm In Sodium Chloride 0.9% 100 ml @ 25 mls/hr IVPB Q8HR [facility] Rx# :[id number] Oral 100 240 Output: Urine 1225 1010 575 Other: Voiding Method Indwelling Catheter Indwelling Catheter Indwelling Catheter - Exam GENERAL EXAM: Alert, pleasant 70-year-old gentleman, on AirVO high flow oxygen at 60 L/m and 90% FiO2 along with a nonrebreather mask., comfortable in no apparent distress. However considering his O2 saturation, I recommended transitioning him to BiPAP. HEENT: PERRLA, EOMI, nonicteric, short obese neck, no neck masses, no JVD, no thyromegaly, no stridor. CHEST: No chest wall deformity. LUNGS: Equal air entry , fine crackles at the bases persists. CVS: S1 and S2 normal with no audible murmur, regular rhythm. ABDOMEN: No hepatosplenomegaly, normal bowel sounds, no guarding or rigidity. SPINE: No scoliosis or deformity SKIN: No rashes CENTRAL NERVOUS SYSTEM: Alert and oriented 3, seems weak.. EXTREMITIES: No clubbing, no edema, no cyanosis. - Labs CBC & Chem 7: 10/22/20 04:20 10/22/20 04:20 Labs: Abnormal Lab Results - Last 24 Hours (Table) 10/21/20 10/21/20 10/22/20 Range/Units 17:03 19:43 04:20 WBC 22.7 H (3.8-10.6) k/uL Neutrophils # 22.1 H (1.3-7.7) k/uL Lymphocytes # 0.1 L (1.0-4.8) k/uL ABG pH (7.35-7.45) ABG pO2 (83-108) mmHg ABG HCO3 (21-25) mmol/L ABG Total CO2 (19-24) mmol/L ABG O2 Saturation (94-97) % Carbon Dioxide (22-30) mmol/L BUN (9-20) mg/dL Glucose (74-99) mg/dL POC Glucose (mg/dL) 134 H 158 H (75-99) mg/dL Ferritin (22.0-322.0) ng/mL Total Bilirubin (0.2-1.3) mg/dL AST (17-59) U/L ALT (4-49) U/L Alkaline Phosphatase (38-126) U/L Lactate Dehydrogenase (313-618) U/L Albumin (3.5-5.0) g/dL 10/22/20 10/22/20 10/22/20 Range/Units 04:20 09:22 11:12 WBC (3.8-10.6) k/uL Neutrophils # (1.3-7.7) k/uL Lymphocytes # (1.0-4.8) k/uL ABG pH 7.48 H (7.35-7.45) ABG pO2 45 L* (83-108) mmHg ABG HCO3 26 H (21-25) mmol/L ABG Total CO2 27 H (19-24) mmol/L ABG O2 Saturation 80.3 L (94-97) % Carbon Dioxide 31 H (22-30) mmol/L BUN 64 H (9-20) mg/dL Glucose 144 H (74-99) mg/dL POC Glucose (mg/dL) 155 H (75-99) mg/dL Ferritin 1475.9 H (22.0-322.0) ng/mL Total Bilirubin 2.3 H (0.2-1.3) mg/dL AST 88 H (17-59) U/L ALT 281 H (4-49) U/L Alkaline Phosphatase 133 H (38-126) U/L Lactate Dehydrogenase 2416 H (313-618) U/L Albumin 3.4 L (3.5-5.0) g/dL Assessment and Plan Assessment: Impression: Acute on chronic hypoxic respiratory failure secondary to acute covid 19 pneumonitis Acute on chronic renal failure. History of chronic obstructive lung disease, maintain on home. Elevated inflammatory markers. History of peripheral vessel occlusive disease. Obstructive sleep apnea syndrome. 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 Benign essential hypertension. History of coronary artery disease. Former smoker. Recommendation: Patient will remain in the ICU. Continue BiPAP, and titrate settings accordingly specially the FiO2. He would be on IPAP of 14 and EPAP of 6, and FiO2 of 100%. Continue Solu-Medrol 60 every 6. Continue Zosyn empirically. Continue bronchodilators. Patient received Tocilizumab x2 . Patient remains critically ill, and I have no plans to transfer out of the ICU at this point yet, He may eventually require intubation and mechanical ventilation if he doesn't make significant improvement in the next 24-48 hours. Time with Patient: Greater than 30
[2020-10-22 16:19] LABS: Glucose,Whole Blood 154 mg/dL (75-99)
--- NOTE | 2020-10-22 16:45 | P.PN ---
Subjective Progress Note Date: 10/22/20 HISTORY OF PRESENT ILLNESS This is a 70 years old male patient of Dr. Polo with past medical history of pulmonary embolism diagnosed in [place] 2 years ago, history of lower extremity DVT, coronary artery disease no stent, history of heart failure unknown if systolic or diastolic, COPD, hyperlipidemia, hypertension, osteoarthritis, prostate cancer, skin disorder,'s obstructive sleep apnea on CPAP, subclavian steal syndrome with stent placement, history of recent penile implant on 07/27/2016. Patient has chronic shortness of breath that has been going on for the past 2 years since the diagnosis of pulmonary embolism with O2 requirements at 2 L nasal cannula Patient is currently on maintenance dose of xarelto at 10 mg daily. He presents emergency room secondary to worsening dyspnea, x 7 days without any medical intervention prior to this, He was seen in the Emergency room for the shortness of breath, worsening dyspnea and exertion, and was found to be SARS cov 2 positive. Chest x-ray, shows bilateral pulmonary interstitial infiltrates compared to old exam, with a similar atelectasis. Poor inspiration, no hilar masses laboratory shows hemoglobin of 12.9, WBC count of 7, creatinine of 1.47, iron of 1.2, glucose 120 CRP 88, pro-calcitonin slightly elevated 0.22. Patient denies any chronic prednisone exposure, Consult were made with pulmonary, Dr. Ramos, pulse oximetry would be 9 PT 1697 at 2-3 L nasal cannula, blood pressure of 129/66. 10/11: Patient was seen for follow-up today, he is a little bit tachypnea, very small amount of labored breathing only on exertion, no conversational dyspnea, O2 at 2 L, sats 95%, no clearance from pulmonary medicine are stable were rounding today, no cough, no pleurisy, no chest pain no palpitations, creatinine at 1.5 today, electrolytes are normal, wbc of 4.7, LDH of 784, ferritin 533 patient is on IV dexamethasone maintained on Xarelto, no new treatment from pulmonary critical care today, currently stable 10/12: A-Team is called during the night due to hypoxia and patient was started on AirVo. Respiratory rate is been in the 40s, heart rate 74, afebrile, pulse ox 96%. Chest x-ray from yesterday revealed patchy. Hilar and basilar infiltrates persist and have progressed slightly in the interval. Repeat blood work reveals WBC 6.8, hemoglobin 12.4, platelet count 135. LDH 1228. C- reactive protein 85.1. The patient has developed increasing difficulty with breathing. He denies having any chest pain. He states he could not sleep through the night. 10/13: Patient states that his breathing status is about the same as yesterday or little bit more difficult. He denies any coughing up blood. He denies any abdominal pain, nausea or vomiting, no diarrhea. Patient remains on Arava with pulse ox of 88-90%. Afebrile, heart rate 69, respiratory rate 40, blood pressure 137/76. Patient is status post 2 doses of Tocilizumab. patient is followed closely by pulmonary medicine. 10/14: Patient is currently on AirVo and nonrebreather but states that he is feeling better today and that his breathing is better. He has been afebrile, heart rate 72, respiratory rate 36, blood pressure 130/70, pulse ox 90%. He denies having abdominal pain, nausea vomiting or diarrhea. He remains on Solu- Medrol 60 mg IV every 6 hours. 10/15: Patient was transferred to the ICU per Dr. Wright. He is currently on AirVo only at time of evaluation and is eating his breakfast. Patient has been maintained on Arava plus nonrebreather. His breathing status appears to be improved from yesterday. His pulse ox is 88%. Afebrile, heart rate 76, respiratory rate 25, blood pressure 131/81. Repeat chest x-ray reveals stable chest. Repeat blood work reveals normal CBC. D-dimer 1.85. C-reactive protein 29. LDH is pending. Ferritin level 1340.6. Patient is scheduled for PICC line insertion today. Lasix 40 mg IV push ordered today by pulmonary medicine. Patient is continued on Solu-Medrol 60 mg every 6 hours. Patient not receiving any antibiotics at this time. 10/16: Patient remains in the intensive care unit. He was off nonrebreather and only on AirVo yesterday most of the day. Now he is on both AirVo and nonrebreather and taking the nonrebreather on and off as he needs it. He is eating 50% of his meals. He has been afebrile, heart rate 69, respiratory rate 34, blood pressure 142/80, pulse ox 88% on both AirVo and nonrebreather. Repeat blood work reveals W BC 13.5, hemoglobin 13.6, platelet count 247. Electrolytes normal. BUN 52 and creatinine 1.2. Blood sugars running between 120 975. Total bilirubin 1.0, AST 111, ALT 137, alkaline phosphatase 80. C-reactive p rotein 16.3, CK 65. Repeat chest x-ray reveals bilateral lower lobe infiltrate and small effusion with coarsened interstitium correlate for venous congestion versus interstitial pneumonia. Patient surprisingly feels his breathing is stable. He has no new complaints. 10/17: Patient remains in intensive care unit. He has been off the nonrebreather for the past hour and a half with only AirVo with pulse ox in the high 80s. He has been afebrile, heart rate in the 70s, blood pressure 142/86, respiratory rate in 30s. Patient verbalizes that his breathing status is improving. Repeat blood work reveals WBC 15.8, hemoglobin 13.7, platelet count 239. Electrolytes normal. BUN 54 and creatinine 1.09. Blood sugars running between 120 765. Total bilirubin 1.5, AST 195, ALT 304, alkaline phosphatase 92, LDH 2785. CK 51, C-reactive protein 11.3. Repeat chest x-ray reveals mild interval pro gression in the lung infiltrates within the right lung. Left lung is stable. No change in small bilateral pleural effusions. 10/18: Patient remains in intensive care unit. He is seen today on AirVo and nonrebreather and pulse ox has been marginal in the low to mid 80s. Heart rate is in the 70s, respiratory rate in the 30s, blood pressure 136/87. He has been afebrile. Repeat blood work reveals WBC 18.4. Electrolytes normal, BUN 59 and creatinine 1.03. Blood sugars running between 126 and 166. Ferritin level 1817. D-dimer 11.45. Total bilirubin 1.7, AST 128, ALT 309, alkaline phosphat ase 121. LDH 3174. CK 98, C-reactive protein 5.9. Repeat chest x-ray reveals left perihilar and basilar infiltrates persist 10/19: Patient's breathing status remains about the same. He has been afebrile, heart rate 70s, respiratory rate 29, blood pressure 143/87. Pulse ox is running mid to high 80s with nonrebreather and high flow nasal cannula. WBC 19.1, hemoglobin 14.1, platelet count 247. D-dimer 11.64. Electrolytes normal. BUN 55 and creatinine 1.05. Blood sugars running between 124 and 197. Ferritin 1583. Total bilirubin 1.4, AST 99, ALT 266, alk phos was 123. LDH 2962. C-re active protein 5.4. Repeat chest x-ray shows no pneumothorax. Interstitial and patchy bilateral infiltrates. 10/20: Patient remains in the intensive care unit and he is currently on nonrebreather and high flow nasal cannula. Pulse ox is running 86-91%. He has been afebrile, heart rate in the 70s, respiratory rate 29, blood pressure 145/81. WBC 21.3. Sodium 136, BUN 57 and creatinine 1.07. Blood sugars running between 100 3459. Ferritin level 1616. Total bilirubin 1.8, AST 87, ALT 262, alkaline phosphatase 131. C-reactive protein normal at less than 5. Repeat chest x-ray reveals relatively stable with interstitial infiltrates and possible trace effusions. 10/21:patient remains in the intensive care unit. He is on Arava oh and nonrebreather with pulse ox in the mid 80s. Patient has been afebrile.Heart rate in the 70s and 60s, respiratory rate in the mid to high 20s, pulse ox a nywhere between 81-89%, blood pressure 119/81. WBC 27.3, hemoglobin 15, platelet count 202. Electrolytes normal, BUN 61 and creatinine 1.11. Blood sugars running between 141 and 158. Ferritin level 1639, total bilirubin 2.0, AST 104, ALT 296, alkaline phosphatase 136. LDH 2774. C-reactive protein less than 5. Patient is continued on Zosyn, IV Solu-Medrol heart rate in the 60s and 70s, respiratory rate in the 20s n and IV Lasix. 10/22: Patient remains in the intensive care unit currently on BiPAP. Patient had some increased anxiety this morning was given Xanax and was lethargic following with desats and subsequently placed on BiPAP. He's been running high 90s for pulse ox. He's been afebrile, heart rate in the 70s, respiratory rate in the 20s to 30s, blood pressure 125/91. Repeat blood work reveals W BC 22.7, hemoglobin 14.3, platelet count 173. Electrolytes are normal except for CO2 of 31, BUN 64 and creatinine 1.17. Ferritin 1475.9. Total bilirubin 2.3, AST 88, ALT 281, alkaline phosphatase 133. LDH 2416. Blood sugars running between 144 and 158. Repeat chest x-ray reveals mild diffuse increased lung opacities. Patient is continued on Zosyn, Solu-Medrol. Patient may require intubation. REVIEW OF SYSTEMS Constitutional: Denies fever, no chills, no night sweats. Generalized weakness, fatigue. EENT: No headache. No dizziness. No nasal drainage or congestion. No epistaxis. No sore throat. Lungs: Reports shortness of breathworsening, reports cough, no sputum production. No wheezing. reports dyspnea with exertion. Cardiovascular: No chest pain, no lower extremity edema. No palpitations. No paroxysmal nocturnal dyspnea. No orthopnea. No lightheadedness or dizziness. No syncopal episodes. Abdominal: No abdominal pain. No nausea, vomiting. No diarrhea. No constipation. No bloody or tarry stools.. No loss of appetite. Genitourinary: No dysuria, increased frequency, urgency. No urinary retention. Musculoskeletal: No myalgias. No muscle weakness, no gait dysfunction, no frequent falls. No back pain. No neck pain. Integumentary: No wounds, no lesions. No rash or pruritus. No unusual bruising. High flow nasal cannula Neurologic: No aphasia. No facial droop. No change in mentation. No head injury. No headache. Psychiatric: No depression. No anxiety. No mood swings. Reports insomnia. Endocrine: Noted abnormal blood sugars. No weight change. PHYSICAL EXAMINATION Gen: This is a 70-year-old male. He is resting in ICU bed and appears to be fatigued. Patient is on BiPAP. HEENT: Head is atraumatic, normocephalic. Pupils equal, round. Sclerae is anicteric. NECK: Supple. No JVD. No lymphadenopathy. No thyromegaly. LUNGS: Few scattered rhonchi and scattered expiratory wheezing. Mild intercostal retractions. HEART: Regular rate and rhythm. No murmur. ABDOMEN: Soft. Bowel sounds are present. No masses. No tenderness. EXTREMITIES: No pedal edema. No calf tenderness. Dorsalis pedis palpable bilaterally. NEUROLOGICAL: Patient is awake, alert and oriented x3. Cranial nerves 2 through 12 are grossly intact. ASSESSMENT AND PLAN 1. Acute SARS COV2, infection with acute hypoxic respiratory failure. Continue airflow, pulmonary consult appreciated. Due to cytokine storm and worsening hypoxia, we're going to monitor him for worsening hypoxemia as well as respiratory distress, has history of appropriate for aggressive treatment. Continue Solu-Medrol 60 mg every 6 hours, albuterol inhaler as needed, Symbicort inhaler twice daily, Lasix 40 mg IV daily. Continue vitamin D. Patient is status post 2 doses of Tocilizumab. Incentive spirometry. Patient may require intubation 2. Chronic anticoagulation, secondary to history of DVT in the past, long-term anticoagulation using Xarelto, which is maintained 3. History of DVT of the right leg in December 2013, resolved on Lasix 40 mg daily, 4. COPD. Continue albuterol- Atrovent as needed . Continue Symbicort twice daily 5 Hyperlipidemia. Continue Crestor daily. 6 Subclavian steal syndrome status post stent in the right carotid. 7 Benign prostatic hypertrophy. Monitor for urinary retention. Continue Flomax daily 8 History of coronary artery disease with previous myocardial infarction. 9 Obstructive Sleep apnea. Patient to continue his own CPAP machine. 10 Gastroesophageal reflux disease and gastric intestinal prophylaxis. Continue Nexium or equivalent. 11. Hypertension. Continue bystolic 10 mg daily . Hold aldactone. 12. Depression. Continue Cymbalta 150 mg twice daily. 13. History of ADHD. Strattera on hold. 13. Chronic kidney disease stage III, stable 14. Chronic systolic heart failure and ischemic cardiomyopathy with prior ejection fraction 40%, Lasix 40 mg IV daily aspirin 81 mg metoprolol 15 CODE STATUS full code DISCHARGE PLAN Most likely return home. Impression and plan of care have been directed as dictated by the signing physician. Nena Frausto nurse practitioner acting as scribe for signing physician. Objective - Vital Signs Vital signs: Vital Signs Temp 98.2 F 10/22/20 04:00 Pulse 80 10/22/20 07:00 Resp 31 H 10/22/20 07:00 BP 135/87 10/22/20 07:00 Pulse Ox 95 10/22/20 09:01 Intake & Output 10/21/20 10/22/20 10/22/20 18:59 06:59 18:59 Intake Total 300 100 Output Total 1225 1010 125 Balance -925 -910 -125 Weight 110.5 kg Intake: IV 200 Piperacillin-Tazobactam 3 200 .375 gm In Sodium Chloride 0.9% 100 ml @ 25 mls/hr IVPB Q8HR [facility] Rx# :[id number] Intake, IV Titration 100 Amount Piperacillin-Tazobactam 3 100 .375 gm In Sodium Chloride 0.9% 100 ml @ 25 mls/hr IVPB Q8HR [facility] Rx# :[id number] Oral 100 Output: Urine 1225 1010 125 Other: Voiding Method Indwelling Catheter Indwelling Catheter - Labs CBC & Chem 7: 10/22/20 04:20 10/22/20 04:20 Labs: Abnormal Lab Results - Last 24 Hours (Table) 10/21/20 10/21/20 10/21/20 Range/Units 11:33 17:03 19:43 WBC (3.8-10.6) k/uL Neutrophils # (1.3-7.7) k/uL Lymphocytes # (1.0-4.8) k/uL ABG pH (7.35-7.45) ABG pO2 (83-108) mmHg ABG HCO3 (21-25) mmol/L ABG Total CO2 (19-24) mmol/L ABG O2 Saturation (94-97) % Carbon Dioxide (22-30) mmol/L BUN (9-20) mg/dL Glucose (74-99) mg/dL POC Glucose (mg/dL) 158 H 134 H 158 H (75-99) mg/dL Ferritin (22.0-322.0) ng/mL Total Bilirubin (0.2-1.3) mg/dL AST (17-59) U/L ALT (4-49) U/L Alkaline Phosphatase (38-126) U/L Lactate Dehydrogenase (313-618) U/L Albumin (3.5-5.0) g/dL 10/22/20 10/22/20 10/22/20 Range/Units 04:20 04:20 09:22 WBC 22.7 H (3.8-10.6) k/uL Neutrophils # 22.1 H (1.3-7.7) k/uL Lymphocytes # 0.1 L (1.0-4.8) k/uL ABG pH 7.48 H (7.35-7.45) ABG pO2 45 L* (83-108) mmHg ABG HCO3 26 H (21-25) mmol/L ABG Total CO2 27 H (19-24) mmol/L ABG O2 Saturation 80.3 L (94-97) % Carbon Dioxide 31 H (22-30) mmol/L BUN 64 H (9-20) mg/dL Glucose 144 H (74-99) mg/dL POC Glucose (mg/dL) (75-99) mg/dL Ferritin 1475.9 H (22.0-322.0) ng/mL Total Bilirubin 2.3 H (0.2-1.3) mg/dL AST 88 H (17-59) U/L ALT 281 H (4-49) U/L Alkaline Phosphatase 133 H (38-126) U/L Lactate Dehydrogenase 2416 H (313-618) U/L Albumin 3.4 L (3.5-5.0) g/dL
--- NOTE | 2020-10-22 18:58 | PCN ---
PROCEDURE NOTE PROCEDURE PERFORMED: 1. Right radial art line. 2. Right femoral vein triple-lumen catheter. ARTERIAL LINE PLACEMENT: DOCKETING SPECIALIST: Dr. Ramos Indications: Hemodynamic monitoring. A time-out was completed verifying correct patient, procedure, site, positioning, and implant(s) or special equipment if applicable. Rafael's test was performed to ensure adequate perfusion. The patient's right wrist was prepped and draped in sterile fashion. 1% Lidocaine was used to anesthetize the area. An 18G Arrow arterial line was introduced into the radial artery. The catheter was threaded over the guide wire and the needle was removed with appropriate pulsatile blood return. Blood loss was minimal. The catheter was then sutured in place to the skin and a sterile dressing applied. Perfusion to the extremity distal to the point of catheter insertion was checked and found to be adequate. The patient tolerated the procedure well and there were no complications. There was no immediate complication. There was good blood return and waveform. The catheter was sutured in place. There was no immediate complication. Sterile dressing was applied by the nurse. There was informed consent and universal timeout. SECOND PROCEDURE: A right femoral vein triple-lumen catheter. TRIPLE LUMEN CATHETER PLACEMENT: DOCKETING SPECIALIST: Dr. Ramos Indication: Hemodynamic monitoring/Intravenous access. A time-out was completed verifying correct patient, procedure, site, positioning, and implant(s) or special equipment if applicable. The patient was placed in a dependent position appropriate for triple lumen catheter placement based on the vein to be cannulated. The patient's right groin was prepped and draped in sterile fashion. 1% Lidocaine was used to anesthetize the surrounding skin area. A triple lumen 9F Cordis catheter was introduced into the common femoral vein using Seldinger technique. The catheter was threaded smoothly over the guide wire and appropriate blood return was obtained. Each lumen of the catheter was evacuated of air and flushed with sterile saline. The catheter was then sutured in place to the skin and a sterile dressing applied. Perfusion to the extremity distal to the point of catheter insertion was checked and found to be adequate. There was good blood return from all 3 ports. There was no immediate complication. Catheter was sutured in place. Sterile dressings applied by the nurse. The patient tolerated the procedure well. There was no immediate complication. No x-ray was required. Again, there was informed consent and universal timeout. MMODL / IJN: [id number] /
[2020-10-22 19:55] LABS: Glucose,Whole Blood 140 mg/dL (75-99)
[2020-10-22] MEDS: NON FORMULARY DRUG (Rosuvastatin 20 MG Tablet) PO SCH (20:19)
[2020-10-22] MEDS: MIRTAZAPINE 15 MG TAB PO SCH (20:30)
[2020-10-23 04:27] LABS: Basophils # (A) 0.1 k/uL (0-0.2); Basophils % (A) 0 %; Eosinophils # (A) 0.1 k/uL (0-0.7); Eosinophils % (A) 0 %; HCT 43.5 % (39.0-53.0); HGB 14.7 gm/dL (13.0-17.5); Lymphocytes # (A) 0.1 k/uL (1.0-4.8); Lymphocytes % (A) 0 %; MCH 32.1 pg (25.0-35.0); MCHC 33.8 g/dL (31.0-37.0); Mean Platelet Volume 8.1; Monocytes # (A) 0.4 k/uL (0-1.0); Monocytes % (A) 2 %; Neutrophils # (A) 23.6 k/uL (1.3-7.7); Neutrophils % (A) 97 %; Platelet Count 190 k/uL (150-450); RBC 4.58 m/uL (4.30-5.90); RDW 14.7 % (11.5-15.5); WBC 24.3 k/uL (3.8-10.6)
[2020-10-23 04:51] LABS: Albumin 3.5 g/dL (3.5-5.0); Calcium 8.8 mg/dL (8.4-10.2); Potassium 4.5 mmol/L (3.5-5.1); Total Bilirubin 3.1 mg/dL (0.2-1.3); Total Protein 6.4 g/dL (6.3-8.2)
[2020-10-23 06:17] LABS: Glucose,Whole Blood 145 mg/dL (75-99)
[2020-10-23] MEDS: methylPREDNISolone SOD SUCCI 125 MG/2 ML VIAL IV SCH ×3 (06:19→17:29)
[2020-10-23] MEDS: INSULIN ASPART (NovoLOG) 100 UNIT/ML VIAL SQ SCH ×4 (06:20→20:30)
[2020-10-23] MEDS: SYMBICORT 160-4.5 MCG INHALER INHALATION SCH ×2 (07:42→19:41)
[2020-10-23] MEDS: TIOTROPIUM 2.5 MCG INHALER INHALATION SCH (07:42)
[2020-10-23] MEDS: ALBUTEROL HFA INHALER INHALATION PRN ×3 (07:42→19:41)
--- NOTE | 2020-10-23 09:53 | XR ---
EXAMINATION TYPE: XR chest 1V portable DATE OF EXAM: 10/23/2020 Comparison: 10/22/2020 Clinical History: 70-year-old male shortness of breath Findings: Crowley bilateral shoulder arthroplasties. Vascular stent at the right apex. Heart normal size. Diff use interstitial opacity persists. Possible trace right effusion. Impression: Similar diffuse bilateral interstitial opacities. Possible trace right effusion.
[2020-10-23] MEDS: NON FORMULARY DRUG (Atomoxetine Hcl [Strattera] 60 MG Capsule) PO SCH (09:54)
[2020-10-23] MEDS: NON FORMULARY DRUG (Atomoxetine Hcl [Strattera] 40 MG Capsule) PO SCH (09:54)
[2020-10-23] MEDS: RIVAROXABAN 20 MG TAB PO SCH (09:55)
[2020-10-23] MEDS: PIPERACILLIN-TAZOBACTAM 3.375 GM in SODIUM CHLORIDE 0.9% 100 ML IVPB SCH ×2 (09:55→15:39)
[2020-10-23] MEDS: NEBIVOLOL 5 MG TAB PO SCH (09:55)
[2020-10-23] MEDS: CHOLECALCIFEROL 25 MCG (1000 IU) TABLET PO SCH ×2 (09:55→16:20)
[2020-10-23] MEDS: LORATADINE 10 MG TAB PO SCH (09:55)
[2020-10-23] MEDS: PANTOPRAZOLE 40 MG TABLET PO SCH ×2 (09:55→11:21)
[2020-10-23] MEDS: FUROSEMIDE 10 MG/ML 4 ML VIAL IV SCH (09:55)
[2020-10-23] MEDS: guaiFENesin 600 MG TABLET.ER PO SCH ×2 (09:55→20:31)
[2020-10-23] MEDS: allopurinoL 300 MG TAB PO SCH (09:55)
[2020-10-23] MEDS: METOPROLOL SUCCINATE (ER) 25 MG TAB.ER.24H PO SCH (09:55)
[2020-10-23] MEDS: levETIRAcetam 500 MG TAB PO SCH ×3 (09:56→20:31)
[2020-10-23] MEDS: ASPIRIN 81 MG PO SCH (09:56)
[2020-10-23] MEDS: VENLAFAXINE HCL 75 MG TAB PO SCH ×2 (09:56→20:32)
[2020-10-23] MEDS: MULTIVITAMINS, THERA 1 EACH TAB PO SCH ×2 (09:56→16:20)
[2020-10-23] MEDS ORDERED: PANTOPRAZOLE 40 MG/10 ML VIAL IVP SCH (10:45)
[2020-10-23] MEDS: PANTOPRAZOLE 40 MG/10 ML VIAL IVP SCH (11:02)
[2020-10-23 11:20] LABS: Glucose,Whole Blood 147 mg/dL (75-99)
--- NOTE | 2020-10-23 13:22 | P.PN ---
Subjective Progress Note Date: 10/23/20 Principal diagnosis: Acute hypoxic respiratory failure secondary to covid 19 pneumonitis. The patient is seen today 10/20/2020 in follow-up in the intensive care unit. He is currently sitting up in bed. Awake and alert in no acute distress. He is still very weak and fatigued. He has very little reserve. Any little movement decreases his oxygen saturations. He is currently on AirVo high flow oxygen at 60 L and 90% FiO2 along with a nonrebreather mask. He's been on IV Solu-Medrol 60 every 6, Xarelto, bronchodilators. Received tocilizumab. Chest x-ray continues to show bilateral interstitial infiltrates with trace effusions. He remains on IV diuretics.. Plan to add Zosyn. Pro-calcitonin pending. White count up to 21.3. Hemoglobin 14.3. Sodium 136. Potassium 4.5. Creatinine 1.07. C-reactive protein less than 5.0. The patient is seen today 10/21/2020 in follow-up in the intensive care unit. He is currently awake and alert in no acute distress. Resting fairly comfortably in bed. Still quite fatigued and weak. Slightly better today compared to yesterday. Remains on AirVo high flow oxygen at 60 L and 90% FiO2 and a nonrebreather mask to maintain O2 saturation in the low to mid 80s. He's been afebrile. White count 27.3. Hemoglobin 15.0. D-dimer 9.89. Sodium 138. Potassium 4.6. Creatinine 1.11. LDH 2774. C-reactive protein less than 5.0. He's been on IV Solu-Medrol 60 every 6, Xarelto, bronchodilators. Received tocilizumab. Chest x-ray shows some worsening left lung infiltrate. Bibasilar patchy infiltrates. He was initiated on Zosyn. Procalcitonin 0.09. He remains on daily IV Lasix. Currently in a negative balance. Patient was reevaluated today on 10/22/2020, remains in the ICU, looks frail and chronically ill, looks weak, remains on high flow oxygen via airvo he is on 80% which was increased earlier to 90% and he is also on 60 L flow. After evaluating the patient today, I transitioned the patient to BiPAP, 100% FiO2 with IPAP of 14 EPAP of 16. Chest x-ray continues to show bilateral interstitial infiltrates, not much of a change in the last few days. ABG earlier on 80% FiO2 showed a pO2 of 45 pCO2 of 35 pH of 7.47. Clinically, the patient is comfortable, does not seem to be in distress, and I am not planning to proceed to intubation and mechanical ventilation at least not at this point. However if his condition gets clinically worse, would definitely recommend intubation and mechanical ventilation. Basic metabolic profile today is relatively normal BUN is 64 creatinine 1.17. His inflammatory markers remained relatively elevated. LDH is 2416, C-reactive protein is 5.1 WBC count is 22.7 hemoglobin is 14.3. Patient remains on Solu-Medrol, Xarelto, bronchodilators, and he received actemra. He also remains on Zosyn empirically. Patient was reevaluated today on 10/23/2020, patient remains EPAP with IPAP of 14 EPAP of 6, 60% FiO2. Remains on Xarelto, his overall clinical status is marginal at best. Patient had an episode of confusion yesterday as he went to the bathroom, and he pulled his PICC line, a right femoral line was placed by Dr. Ramos shortly after. Patient is generally weak, lethargic, but arousable, follows simple instructions, and he tells me that he feels fine ABC showed l eukocytosis with WBC of 24.3 hemoglobin is 14.7 and at rest are normal BUN is 73 creatinine 1.34. Liver enzymes are relatively elevated. Chest x-ray continues to show bilateral interstitial opacities with a small tiny trace of right-sided pleural effusion Objective - Vital Signs Vital signs: Vital Signs Temp 98.0 F 10/23/20 12:00 Pulse 80 10/23/20 12:00 Resp 28 H 10/23/20 12:00 BP 161/85 10/23/20 12:00 Pulse Ox 92 L 10/23/20 12:00 Intake & Output 10/22/20 10/23/20 10/23/20 18:59 06:59 18:59 Intake Total 540 813 192 Output Total 5578 0428 380 Balance -585 -232 -188 Weight 109.5 kg Intake: IV 280 273 192 KVO 80 240 80 Piperacillin-Tazobactam 3 200 100 .375 gm In Sodium Chloride 0.9% 100 ml @ 25 mls/hr IVPB Q8HR [facility] Rx# :[id number] pressure bag NS 33 12 Oral 260 540 Output: Urine 1125 1045 380 Other: Voiding Method Indwelling Catheter Indwelling Catheter Indwelling Catheter ABP, PAP, CO, CI - Last Documented Arterial Blood Pressure 152/88 - Exam GENERAL EXAM: Alert, pleasant 70-year-old gentleman, on BiPAP. HEENT: PERRLA, EOMI, nonicteric, short obese neck, no neck masses, no JVD, no thyromegaly, no stridor. CHEST: No chest wall deformity. LUNGS: Equal air entry , fine crackles at the bases persists. CVS: S1 and S2 normal with no audible murmur, regular rhythm. ABDOMEN: No hepatosplenomegaly, normal bowel sounds, no guarding or rigidity. SPINE: No scoliosis or deformity SKIN: No rashes CENTRAL NERVOUS SYSTEM: Alert and oriented 3, seems weak.. EXTREMITIES: No clubbing, no edema, no cyanosis. - Labs CBC & Chem 7: 10/23/20 04:15 10/23/20 04:15 Labs: Abnormal Lab Results - Last 24 Hours (Table) 10/22/20 10/22/20 10/23/20 Range/Units 16:17 19:54 04:15 WBC 24.3 H (3.8-10.6) k/uL Neutrophils # 23.6 H (1.3-7.7) k/uL Lymphocytes # 0.1 L (1.0-4.8) k/uL Chloride (98-107) mmol/L BUN (9-20) mg/dL Creatinine (0.66-1.25) mg/dL Glucose (74-99) mg/dL POC Glucose (mg/dL) 154 H 140 H (75-99) mg/dL Total Bilirubin (0.2-1.3) mg/dL AST (17-59) U/L ALT (4-49) U/L Alkaline Phosphatase (38-126) U/L 10/23/20 10/23/20 10/23/20 Range/Units 04:15 06:15 11:19 WBC (3.8-10.6) k/uL Neutrophils # (1.3-7.7) k/uL Lymphocytes # (1.0-4.8) k/uL Chloride 109 H (98-107) mmol/L BUN 73 H (9-20) mg/dL Creatinine 1.34 H (0.66-1.25) mg/dL Glucose 149 H (74-99) mg/dL POC Glucose (mg/dL) 145 H 147 H (75-99) mg/dL Total Bilirubin 3.1 H (0.2-1.3) mg/dL AST 117 H (17-59) U/L ALT 329 H (4-49) U/L Alkaline Phosphatase 137 H (38-126) U/L Assessment and Plan Assessment: Impression: Acute on chronic hypoxic respiratory failure secondary to acute covid 19 pneumonitis Acute on chronic renal failure. History of chronic obstructive lung disease, normally on home oxygen. Elevated inflammatory markers. History of peripheral vessel occlusive disease. Obstructive sleep apnea syndrome. 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 Benign essential hypertension. History of coronary artery disease. Former smoker. Recommendation: Patient will remain in the ICU. Continue BiPAP, and titrate settings accordingly Continue Solu-Medrol 60 every 6. Continue Zosyn empirically. Continue bronchodilators. Patient received Tocilizumab x2 . Patient remains critically ill, we'll continue to monitor in the ICU. Prognosis remains guarded. Time with Patient: Less than 30
--- NOTE | 2020-10-23 14:49 | P.PN ---
Subjective Progress Note Date: 10/23/20 HISTORY OF PRESENT ILLNESS This is a 70 years old male patient of Dr. Polo with past medical history of pulmonary embolism diagnosed in [place] 2 years ago, history of lower extremity DVT, coronary artery disease no stent, history of heart failure unknown if systolic or diastolic, COPD, hyperlipidemia, hypertension, osteoarthritis, prostate cancer, skin disorder,'s obstructive sleep apnea on CPAP, subclavian steal syndrome with stent placement, history of recent penile implant on 07/27/2016. Patient has chronic shortness of breath that has been going on for the past 2 years since the diagnosis of pulmonary embolism with O2 requirements at 2 L nasal cannula Patient is currently on maintenance dose of xarelto at 10 mg daily. He presents emergency room secondary to worsening dyspnea, x 7 days without any medical intervention prior to this, He was seen in the Emergency room for the shortness of breath, worsening dyspnea and exertion, and was found to be SARS cov 2 positive. Chest x-ray, shows bilateral pulmonary interstitial infiltrates compared to old exam, with a similar atelectasis. Poor inspiration, no hilar masses laboratory shows hemoglobin of 12.9, WBC count of 7, creatinine of 1.47, iron of 1.2, glucose 120 CRP 88, pro-calcitonin slightly elevated 0.22. Patient denies any chronic prednisone exposure, Consult were made with pulmonary, Dr. Ramos, pulse oximetry would be 9 PT 1697 at 2-3 L nasal cannula, blood pressure of 129/66. 10/11: Patient was seen for follow-up today, he is a little bit tachypnea, very small amount of labored breathing only on exertion, no conversational dyspnea, O2 at 2 L, sats 95%, no clearance from pulmonary medicine are stable were rounding today, no cough, no pleurisy, no chest pain no palpitations, creatinine at 1.5 today, electrolytes are normal, wbc of 4.7, LDH of 784, ferritin 533 patient is on IV dexamethasone maintained on Xarelto, no new treatment from pulmonary critical care today, currently stable 10/12: A-Team is called during the night due to hypoxia and patient was started on AirVo. Respiratory rate is been in the 40s, heart rate 74, afebrile, pulse ox 96%. Chest x-ray from yesterday revealed patchy. Hilar and basilar infiltrates persist and have progressed slightly in the interval. Repeat blood work reveals WBC 6.8, hemoglobin 12.4, platelet count 135. LDH 1228. C- reactive protein 85.1. The patient has developed increasing difficulty with breathing. He denies having any chest pain. He states he could not sleep through the night. 10/13: Patient states that his breathing status is about the same as yesterday or little bit more difficult. He denies any coughing up blood. He denies any abdominal pain, nausea or vomiting, no diarrhea. Patient remains on Arava with pulse ox of 88-90%. Afebrile, heart rate 69, respiratory rate 40, blood pressure 137/76. Patient is status post 2 doses of Tocilizumab. patient is followed closely by pulmonary medicine. 10/14: Patient is currently on AirVo and nonrebreather but states that he is feeling better today and that his breathing is better. He has been afebrile, heart rate 72, respiratory rate 36, blood pressure 130/70, pulse ox 90%. He denies having abdominal pain, nausea vomiting or diarrhea. He remains on Solu- Medrol 60 mg IV every 6 hours. 10/15: Patient was transferred to the ICU per Dr. Wright. He is currently on AirVo only at time of evaluation and is eating his breakfast. Patient has been maintained on Arava plus nonrebreather. His breathing status appears to be improved from yesterday. His pulse ox is 88%. Afebrile, heart rate 76, respiratory rate 25, blood pressure 131/81. Repeat chest x-ray reveals stable chest. Repeat blood work reveals normal CBC. D-dimer 1.85. C-reactive protein 29. LDH is pending. Ferritin level 1340.6. Patient is scheduled for PICC line insertion today. Lasix 40 mg IV push ordered today by pulmonary medicine. Patient is continued on Solu-Medrol 60 mg every 6 hours. Patient not receiving any antibiotics at this time. 10/16: Patient remains in the intensive care unit. He was off nonrebreather and only on AirVo yesterday most of the day. Now he is on both AirVo and nonrebreather and taking the nonrebreather on and off as he needs it. He is eating 50% of his meals. He has been afebrile, heart rate 69, respiratory rate 34, blood pressure 142/80, pulse ox 88% on both AirVo and nonrebreather. Repeat blood work reveals W BC 13.5, hemoglobin 13.6, platelet count 247. Electrolytes normal. BUN 52 and creatinine 1.2. Blood sugars running between 120 975. Total bilirubin 1.0, AST 111, ALT 137, alkaline phosphatase 80. C-reactive p rotein 16.3, CK 65. Repeat chest x-ray reveals bilateral lower lobe infiltrate and small effusion with coarsened interstitium correlate for venous congestion versus interstitial pneumonia. Patient surprisingly feels his breathing is stable. He has no new complaints. 10/17: Patient remains in intensive care unit. He has been off the nonrebreather for the past hour and a half with only AirVo with pulse ox in the high 80s. He has been afebrile, heart rate in the 70s, blood pressure 142/86, respiratory rate in 30s. Patient verbalizes that his breathing status is improving. Repeat blood work reveals WBC 15.8, hemoglobin 13.7, platelet count 239. Electrolytes normal. BUN 54 and creatinine 1.09. Blood sugars running between 120 765. Total bilirubin 1.5, AST 195, ALT 304, alkaline phosphatase 92, LDH 2785. CK 51, C-reactive protein 11.3. Repeat chest x-ray reveals mild interval pro gression in the lung infiltrates within the right lung. Left lung is stable. No change in small bilateral pleural effusions. 10/18: Patient remains in intensive care unit. He is seen today on AirVo and nonrebreather and pulse ox has been marginal in the low to mid 80s. Heart rate is in the 70s, respiratory rate in the 30s, blood pressure 136/87. He has been afebrile. Repeat blood work reveals WBC 18.4. Electrolytes normal, BUN 59 and creatinine 1.03. Blood sugars running between 126 and 166. Ferritin level 1817. D-dimer 11.45. Total bilirubin 1.7, AST 128, ALT 309, alkaline phosphat ase 121. LDH 3174. CK 98, C-reactive protein 5.9. Repeat chest x-ray reveals left perihilar and basilar infiltrates persist 10/19: Patient's breathing status remains about the same. He has been afebrile, heart rate 70s, respiratory rate 29, blood pressure 143/87. Pulse ox is running mid to high 80s with nonrebreather and high flow nasal cannula. WBC 19.1, hemoglobin 14.1, platelet count 247. D-dimer 11.64. Electrolytes normal. BUN 55 and creatinine 1.05. Blood sugars running between 124 and 197. Ferritin 1583. Total bilirubin 1.4, AST 99, ALT 266, alk phos was 123. LDH 2962. C-re active protein 5.4. Repeat chest x-ray shows no pneumothorax. Interstitial and patchy bilateral infiltrates. 10/20: Patient remains in the intensive care unit and he is currently on nonrebreather and high flow nasal cannula. Pulse ox is running 86-91%. He has been afebrile, heart rate in the 70s, respiratory rate 29, blood pressure 145/81. WBC 21.3. Sodium 136, BUN 57 and creatinine 1.07. Blood sugars running between 100 3459. Ferritin level 1616. Total bilirubin 1.8, AST 87, ALT 262, alkaline phosphatase 131. C-reactive protein normal at less than 5. Repeat chest x-ray reveals relatively stable with interstitial infiltrates and possible trace effusions. 10/21:patient remains in the intensive care unit. He is on Arava oh and nonrebreather with pulse ox in the mid 80s. Patient has been afebrile.Heart rate in the 70s and 60s, respiratory rate in the mid to high 20s, pulse ox a nywhere between 81-89%, blood pressure 119/81. WBC 27.3, hemoglobin 15, platelet count 202. Electrolytes normal, BUN 61 and creatinine 1.11. Blood sugars running between 141 and 158. Ferritin level 1639, total bilirubin 2.0, AST 104, ALT 296, alkaline phosphatase 136. LDH 2774. C-reactive protein less than 5. Patient is continued on Zosyn, IV Solu-Medrol heart rate in the 60s and 70s, respiratory rate in the 20s n and IV Lasix. 10/22: Patient remains in the intensive care unit currently on BiPAP. Patient had some increased anxiety this morning was given Xanax and was lethargic following with desats and subsequently placed on BiPAP. He's been running high 90s for pulse ox. He's been afebrile, heart rate in the 70s, respiratory rate in the 20s to 30s, blood pressure 125/91. Repeat blood work reveals W BC 22.7, hemoglobin 14.3, platelet count 173. Electrolytes are normal except for CO2 of 31, BUN 64 and creatinine 1.17. Ferritin 1475.9. Total bilirubin 2.3, AST 88, ALT 281, alkaline phosphatase 133. LDH 2416. Blood sugars running between 144 and 158. Repeat chest x-ray reveals mild diffuse increased lung opacities. Patient is continued on Zosyn, Solu-Medrol. Patient may require intubation. 10/23: The patient remains on BiPAP with pulse ox between 86 and 92 with FiO2 of 60%, respiratory rate anywhere between 28 and 40, heart rate in the 80s, afebrile. Patient is getting tired and fatigued. He actually pulled his PICC line out and arterial line and femoral triple-lumen catheter was placed. Repeat chest x-ray reveals similar diffuse bilateral interstitial opacities. Possible trace right effusion. Patient's mental status is stable today. He did have some mild confusion and lethargy yesterday. WBC 24.3. BUN 73 and creatinine 1.34. Blood sugars running between 140 154. Total bilirubin 3.1, AST 117, ALT 329, alkaline phosphatase 137. REVIEW OF SYSTEMS Constitutional: Denies fever, no chills, no night sweats. Generalized weakness, fatigue. EENT: No headache. No dizziness. No nasal drainage or congestion. No epistaxis. No sore throat. Lungs: Reports shortness of breathworsening, reports cough, no sputum production. No wheezing. reports dyspnea with exertion. Cardiovascular: No chest pain, no lower extremity edema. No palpitations. No paroxysmal nocturnal dyspnea. No orthopnea. No lightheadedness or dizziness. No syncopal episodes. Abdominal: No abdominal pain. No nausea, vomiting. No diarrhea. No con stipation. No bloody or tarry stools reports loss of appetite. Genitourinary: No dysuria, increased frequency, urgency. No urinary retention. Musculoskeletal: No myalgias. Reports muscle weakness, no gait dysfunction, no frequent falls. No back pain. No neck pain. Integumentary: No wounds, no lesions. No rash or pruritus. No unusual bruising. High flow nasal cannula Neurologic: No aphasia. No facial droop. No change in mentation. No head injury. No headache. Psychiatric: No depression. No anxiety. No mood swings. Reports insomnia. Endocrine: Noted abnormal blood sugars. No weight change. PHYSICAL EXAMINATION Gen: This is a 70-year-old male. He is resting in ICU bed and appears to be fatigued. Patient is on BiPAP. HEENT: Head is atraumatic, normocephalic. Pupils equal, round. Sclerae is anicteric. NECK: Supple. No JVD. No lymphadenopathy. No thyromegaly. LUNGS: Few scattered rhonchi and scattered expiratory wheezing. Mild intercos carla retractions. HEART: Regular rate and rhythm. No murmur. ABDOMEN: Soft. Bowel sounds are present. No masses. No tenderness. EXTREMITIES: No pedal edema. No calf tenderness. Dorsalis pedis palpable bilaterally. NEUROLOGICAL: Patient is awake, alert and oriented x3. Cranial nerves 2 through 12 are grossly intact. ASSESSMENT AND PLAN 1. Acute SARS COV2, infection with acute hypoxic respiratory failure. Continue airflow, pulmonary consult appreciated. Due to cytokine storm and worsening hypoxia, we're going to monitor him for worsening hypoxemia as well as resp iratory distress, has history of appropriate for aggressive treatment. Continue Solu-Medrol 60 mg every 6 hours, albuterol inhaler as needed, Symbicort inhaler twice daily, Lasix 40 mg IV daily. Continue vitamin D. Patient is status post 2 doses of Tocilizumab. Incentive spirometry. Patient may require intubation. Monitor inflammatory markers. 2. Chronic anticoagulation, secondary to history of DVT. Continue Xarelto. 3. History of DVT of the right leg in December 2013, resolved on Lasix 40 mg daily, 4. COPD. Continue albuterol- Atrovent as needed . Continue Symbicort twice daily 5 Hyperlipidemia. Continue Crestor daily. 6 Subclavian steal syndrome status post stent in the right carotid. 7 Benign prostatic hypertrophy. Monitor for urinary retention. Continue Flomax daily 8 History of coronary artery disease with previous myocardial infarction. 9 Obstructive Sleep apnea. Patient to continue his own CPAP machine. 10 Gastroesophageal reflux disease and gastric intestinal prophylaxis. Continue Nexium or equivalent. 11. Hypertension. Continue bystolic 10 mg daily . Hold aldactone. 12. Depression. Continue Cymbalta 150 mg twice daily. 13. History of ADHD. Strattera on hold. 13. Chronic kidney disease stage III, stable 14. Chronic systolic heart failure and ischemic cardiomyopathy with prior ejection fraction 40%, Lasix 40 mg IV daily aspirin 81 mg metoprolol 15 CODE STATUS full code Prognosis guarded. DISCHARGE PLAN TBD. Impression and plan of care have been directed as dictated by the signing physician. Nena Frausto nurse practitioner acting as scribe for signing physician. Objective - Vital Signs Vital signs: Vital Signs Temp 98.0 F 10/23/20 12:00 Pulse 81 10/23/20 14:00 Resp 32 H 10/23/20 14:00 BP 144/102 10/23/20 14:00 Pulse Ox 92 L 10/23/20 14:00 Intake & Output 10/22/20 10/23/20 10/23/20 18:59 06:59 18:59 Intake Total 540 813 284 Output Total 1125 1045 1080 [facility] -585 -232 -796 Weight 109.5 kg Intake: IV 280 273 284 KVO 80 240 160 Piperacillin-Tazobactam 3 200 100 .375 gm In Sodium Chloride 0.9% 100 ml @ 25 mls/hr IVPB Q8HR [facility] Rx# :[id number] pressure bag NS 33 24 Oral 260 540 Output: Urine 1125 1045 1080 Other: Voiding Method Indwelling Catheter Indwelling Catheter Indwelling Catheter ABP, PAP, CO, CI - Last Documented Arterial Blood Pressure 154/86 - Labs CBC & Chem 7: 10/23/20 04:15 10/23/20 04:15 Labs: Abnormal Lab Results - Last 24 Hours (Table) 10/22/20 10/22/20 10/23/20 Range/Units 16:17 19:54 04:15 WBC 24.3 H (3.8-10.6) k/uL Neutrophils # 23.6 H (1.3-7.7) k/uL Lymphocytes # 0.1 L (1.0-4.8) k/uL Chloride (98-107) mmol/L BUN (9-20) mg/dL Creatinine (0.66-1.25) mg/dL Glucose (74-99) mg/dL POC Glucose (mg/dL) 154 H 140 H (75-99) mg/dL Total Bilirubin (0.2-1.3) mg/dL AST (17-59) U/L ALT (4-49) U/L Alkaline Phosphatase (38-126) U/L 10/23/20 10/23/20 10/23/20 Range/Units 04:15 06:15 11:19 WBC (3.8-10.6) k/uL Neutrophils # (1.3-7.7) k/uL Lymphocytes # (1.0-4.8) k/uL Chloride 109 H (98-107) mmol/L BUN 73 H (9-20) mg/dL Creatinine 1.34 H (0.66-1.25) mg/dL Glucose 149 H (74-99) mg/dL POC Glucose (mg/dL) 145 H 147 H (75-99) mg/dL Total Bilirubin 3.1 H (0.2-1.3) mg/dL AST 117 H (17-59) U/L ALT 329 H (4-49) U/L Alkaline Phosphatase 137 H (38-126) U/L
[2020-10-23 17:07] LABS: Glucose,Whole Blood 146 mg/dL (75-99)
[2020-10-23 20:04] LABS: Glucose,Whole Blood 140 mg/dL (75-99)
[2020-10-23] MEDS: MIRTAZAPINE 15 MG TAB PO SCH (20:32)
[2020-10-23] MEDS: NON FORMULARY DRUG (Rosuvastatin 20 MG Tablet) PO SCH (20:32)
[2020-10-23] MEDS: levETIRAcetam IV 500 MG in SODIUM CHLORIDE 0.9% 100 ML IVPB SCH (21:50)
[2020-10-24] MEDS: methylPREDNISolone SOD SUCCI 125 MG/2 ML VIAL IV SCH ×3 (00:10→13:53)
[2020-10-24] MEDS: PIPERACILLIN-TAZOBACTAM 3.375 GM in SODIUM CHLORIDE 0.9% 100 ML IVPB SCH ×3 (00:10→17:51)
[2020-10-24 04:04] LABS: Basophils # (A) 0.1 k/uL (0-0.2); Basophils % (A) 0 %; Eosinophils % (A) 0 %; HCT 43.8 % (39.0-53.0); HGB 14.3 gm/dL (13.0-17.5); Lymphocytes # (A) 0.2 k/uL (1.0-4.8); Lymphocytes % (A) 1 %; MCH 31.2 pg (25.0-35.0); MCHC 32.7 g/dL (31.0-37.0); MCV 95.4 fL (80.0-100.0); Mean Platelet Volume 8.3; Monocytes # (A) 0.5 k/uL (0-1.0); Monocytes % (A) 2 %; Neutrophils # (A) 20.8 k/uL (1.3-7.7); Neutrophils % (A) 96 %; Platelet Count 176 k/uL (150-450); RDW 14.7 % (11.5-15.5); WBC 21.6 k/uL (3.8-10.6)
[2020-10-24 04:11] LABS: Potassium 4.3 mmol/L (3.5-5.1)
[2020-10-24 04:12] LABS: Albumin 3.4 g/dL (3.5-5.0); Total Bilirubin 3.2 mg/dL (0.2-1.3); Total Protein 6.4 g/dL (6.3-8.2)
[2020-10-24 04:47] LABS: D-Dimer 5.49 mg/L FEU (<0.60)
[2020-10-24 06:35] LABS: Glucose,Whole Blood 167 mg/dL (75-99)
--- NOTE | 2020-10-24 06:46 | XR ---
EXAMINATION TYPE: XR chest 1V portable DATE OF EXAM: 10/24/2020 COMPARISON: 10/23/2020 HISTORY: Shortness of breath TECHNIQUE: Single frontal view of the chest is obtained. FINDINGS: There is mild diffuse vascular congestion unchanged since the prior study. There is no air space consolidation. There is no pneumothorax or large pleural effusion. Heart size is normal. There are bilateral shoulder replacements. IMPRESSION: No significant interval change in the mild pulmonary vascular congestion.
[2020-10-24] MEDS: INSULIN ASPART (NovoLOG) 100 UNIT/ML VIAL SQ SCH ×4 (06:49→19:45)
[2020-10-24] MEDS: levETIRAcetam IV 500 MG in SODIUM CHLORIDE 0.9% 100 ML IVPB SCH ×2 (07:44→19:57)
[2020-10-24] MEDS: FUROSEMIDE 10 MG/ML 4 ML VIAL IV SCH (07:44)
[2020-10-24] MEDS: PANTOPRAZOLE 40 MG/10 ML VIAL IVP SCH (07:44)
[2020-10-24] MEDS: SYMBICORT 160-4.5 MCG INHALER INHALATION SCH ×2 (07:45→19:52)
[2020-10-24] MEDS: ALBUTEROL HFA INHALER INHALATION PRN ×3 (07:45→15:49)
[2020-10-24] MEDS: TIOTROPIUM 2.5 MCG INHALER INHALATION SCH (07:46)
[2020-10-24] MEDS: RIVAROXABAN 20 MG TAB PO SCH (08:52)
[2020-10-24] MEDS: METOPROLOL SUCCINATE (ER) 25 MG TAB.ER.24H PO SCH (08:59)
[2020-10-24] MEDS ORDERED: PANTOPRAZOLE 40 MG/10 ML VIAL IVP SCH (09:00)
[2020-10-24 10:01] LABS: Ferritin 1772.8 ng/mL (22.0-322.0)
[2020-10-24] MEDS: NON FORMULARY DRUG (Atomoxetine Hcl [Strattera] 60 MG Capsule) PO SCH (10:24)
[2020-10-24] MEDS: NON FORMULARY DRUG (Atomoxetine Hcl [Strattera] 40 MG Capsule) PO SCH (10:25)
[2020-10-24] MEDS: NEBIVOLOL 5 MG TAB PO SCH (10:27)
[2020-10-24] MEDS: MULTIVITAMINS, THERA 1 EACH TAB PO SCH (10:27)
[2020-10-24] MEDS: VENLAFAXINE HCL 75 MG TAB PO SCH ×2 (10:27→19:59)
[2020-10-24] MEDS: CHOLECALCIFEROL 25 MCG (1000 IU) TABLET PO SCH (10:27)
[2020-10-24] MEDS: ASPIRIN 81 MG PO SCH (10:27)
[2020-10-24] MEDS: guaiFENesin 600 MG TABLET.ER PO SCH ×2 (10:27→19:39)
[2020-10-24 14:08] LABS: Glucose,Whole Blood 151 mg/dL (75-99)
--- NOTE | 2020-10-24 14:22 | P.PN ---
Subjective Progress Note Date: 10/24/20 Principal diagnosis: Acute hypoxic respiratory failure secondary to covid 19 pneumonitis. The patient is seen today 10/20/2020 in follow-up in the intensive care unit. He is currently sitting up in bed. Awake and alert in no acute distress. He is still very weak and fatigued. He has very little reserve. Any little movement decreases his oxygen saturations. He is currently on AirVo high flow oxygen at 60 L and 90% FiO2 along with a nonrebreather mask. He's been on IV Solu-Medrol 60 every 6, Xarelto, bronchodilators. Received tocilizumab. Chest x-ray continues to show bilateral interstitial infiltrates with trace effusions. He remains on IV diuretics.. Plan to add Zosyn. Pro-calcitonin pending. White count up to 21.3. Hemoglobin 14.3. Sodium 136. Potassium 4.5. Creatinine 1.07. C-reactive protein less than 5.0. The patient is seen today 10/21/2020 in follow-up in the intensive care unit. He is currently awake and alert in no acute distress. Resting fairly comfortably in bed. Still quite fatigued and weak. Slightly better today compared to yesterday. Remains on AirVo high flow oxygen at 60 L and 90% FiO2 and a nonrebreather mask to maintain O2 saturation in the low to mid 80s. He's been afebrile. White count 27.3. Hemoglobin 15.0. D-dimer 9.89. Sodium 138. Potassium 4.6. Creatinine 1.11. LDH 2774. C-reactive protein less than 5.0. He's been on IV Solu-Medrol 60 every 6, Xarelto, bronchodilators. Received tocilizumab. Chest x-ray shows some worsening left lung infiltrate. Bibasilar patchy infiltrates. He was initiated on Zosyn. Procalcitonin 0.09. He remains on daily IV Lasix. Currently in a negative balance. Patient was reevaluated today on 10/22/2020, remains in the ICU, looks frail and chronically ill, looks weak, remains on high flow oxygen via airvo he is on 80% which was increased earlier to 90% and he is also on 60 L flow. After evaluating the patient today, I transitioned the patient to BiPAP, 100% FiO2 with IPAP of 14 EPAP of 16. Chest x-ray continues to show bilateral interstitial infiltrates, not much of a change in the last few days. ABG earlier on 80% FiO2 showed a pO2 of 45 pCO2 of 35 pH of 7.47. Clinically, the patient is comfortable, does not seem to be in distress, and I am not planning to proceed to intubation and mechanical ventilation at least not at this point. However if his condition gets clinically worse, would definitely recommend intubation and mechanical ventilation. Basic metabolic profile today is relatively normal BUN is 64 creatinine 1.17. His inflammatory markers remained relatively elevated. LDH is 2416, C-reactive protein is 5.1 WBC count is 22.7 hemoglobin is 14.3. Patient remains on Solu-Medrol, Xarelto, bronchodilators, and he received actemra. He also remains on Zosyn empirically. Patient was reevaluated today on 10/23/2020, patient remains remains on BiPAP, with IPAP of 14 EPAP of 6, 60% FiO2. Remains on Xarelto, his overall clinical status is marginal at best. Patient had an episode of confusion yesterday as he went to the bathroom, and he pulled his PICC line, a right femoral line was placed by Dr. Ramos shortly after. Patient is generally weak, lethargic, but arousable, follows simple instructions, and he tells me that he feels fine ABC showed leukocytosis with WBC of 24.3 hemoglobin is 14.7 and at rest are normal BUN is 73 creatinine 1.34. Liver enzymes are relatively elevated. Chest x-ray continues to show bilateral interstitial opacities with a small tiny trace of right-sided pleural effusion Reevaluated today , patient is basically about the same. Remains on BiPAP with the same settings as above, FiO2 was cut down to 55%. He is on IPAP of 14 and EPAP of 6. Remains on the Covid 19 cocktails. No major change in the last 24 hours Liver enzymes remain borderline elevated. D-dimer is 5.49. Electrolytes are normal except for elevated sodium and chloride. BUN is 75 creatinine is 1.28. W a count is 21.6 hemoglobin is 14.3. Objective - Vital Signs Vital signs: Vital Signs Temp 98.5 F 10/24/20 12:00 Pulse 88 10/24/20 13:00 Resp 29 H 10/24/20 13:00 BP 156/90 10/24/20 00:00 Pulse Ox 89 L 10/24/20 13:00 Intake & Output 10/23/20 10/24/20 10/24/20 18:59 06:59 18:59 Intake Total 499 253 317 Output Total 1485 1005 770 Balance -986 -752 -453 Weight 110.3 kg Intake: IV 499 253 267 KVO 260 220 80 Piperacillin-Tazobactam 3 200 75 .375 gm In Sodium Chloride 0.9% 100 ml @ 25 mls/hr IVPB Q8HR [facility] Rx# :[id number] levETIRAcetam IV 500 mg 100 In Sodium Chloride 0.9% 100 ml @ 400 mls/hr IVPB Q12HR [facility] Rx#:[id number] pressure bag NS 39 33 12 Oral 50 Output: Urine 1485 1005 770 Other: Voiding Method Indwelling Catheter Indwelling Catheter Indwelling Catheter ABP, PAP, CO, CI - Last Documented Arterial Blood Pressure 150/87 - Exam GENERAL EXAM: Alert, pleasant 70-year-old gentleman, on BiPAP. HEENT: PERRLA, EOMI, nonicteric, short obese neck, no neck masses, no JVD, no thyromegaly, no stridor. CHEST: No chest wall deformity. LUNGS: Equal air entry , fine crackles at the bases persists. CVS: S1 and S2 normal with no audible murmur, regular rhythm. ABDOMEN: No hepatosplenomegaly, normal bowel sounds, no guarding or rigidity. SPINE: No scoliosis or deformity SKIN: No rashes CENTRAL NERVOUS SYSTEM: Alert and oriented 3, seems weak.. EXTREMITIES: No clubbing, no edema, no cyanosis. - Labs CBC & Chem 7: 10/24/20 03:50 10/24/20 03:50 Labs: Abnormal Lab Results - Last 24 Hours (Table) 10/23/20 10/23/20 10/24/20 Range/Units 17:05 20:02 03:50 WBC 21.6 H (3.8-10.6) k/uL Neutrophils # 20.8 H (1.3-7.7) k/uL Lymphocytes # 0.2 L (1.0-4.8) k/uL Fibrinogen (200-500) mg/dL D-Dimer (<0.60) mg/L FEU Sodium (137-145) mmol/L Chloride (98-107) mmol/L BUN (9-20) mg/dL Creatinine (0.66-1.25) mg/dL Glucose (74-99) mg/dL POC Glucose (mg/dL) 146 H 140 H (75-99) mg/dL Ferritin (22.0-322.0) ng/mL Total Bilirubin (0.2-1.3) mg/dL AST (17-59) U/L ALT (4-49) U/L Alkaline Phosphatase (38-126) U/L Albumin (3.5-5.0) g/dL 10/24/20 10/24/20 10/24/20 Range/Units 03:50 03:50 03:50 WBC (3.8-10.6) k/uL Neutrophils # (1.3-7.7) k/uL Lymphocytes # (1.0-4.8) k/uL Fibrinogen 137 L (200-500) mg/dL D-Dimer 5.49 H (<0.60) mg/L FEU Sodium 149 H (137-145) mmol/L Chloride 115 H (98-107) mmol/L BUN 75 H (9-20) mg/dL Creatinine 1.28 H (0.66-1.25) mg/dL Glucose 163 H (74-99) mg/dL POC Glucose (mg/dL) (75-99) mg/dL Ferritin 1772.8 H (22.0-322.0) ng/mL Total Bilirubin 3.2 H (0.2-1.3) mg/dL AST 119 H (17-59) U/L ALT 391 H (4-49) U/L Alkaline Phosphatase 128 H (38-126) U/L Albumin 3.4 L (3.5-5.0) g/dL 10/24/20 10/24/20 Range/Units 06:34 14:07 WBC (3.8-10.6) k/uL Neutrophils # (1.3-7.7) k/uL Lymphocytes # (1.0-4.8) k/uL Fibrinogen (200-500) mg/dL D-Dimer (<0.60) mg/L FEU Sodium (137-145) mmol/L Chloride (98-107) mmol/L BUN (9-20) mg/dL Creatinine (0.66-1.25) mg/dL Glucose (74-99) mg/dL POC Glucose (mg/dL) 167 H 151 H (75-99) mg/dL Ferritin (22.0-322.0) ng/mL Total Bilirubin (0.2-1.3) mg/dL AST (17-59) U/L ALT (4-49) U/L Alkaline Phosphatase (38-126) U/L Albumin (3.5-5.0) g/dL Assessment and Plan Assessment: Impression: Acute on chronic hypoxic respiratory failure secondary to acute covid 19 pneumon itis Acute on chronic renal failure. History of chronic obstructive lung disease, normally on home oxygen. Elevated inflammatory markers. History of peripheral vessel occlusive disease. Obstructive sleep apnea syndrome. 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 Benign essential hypertension. History of coronary artery disease. Former smoker. Acute metabolic encephalopathy, multifactorial related to his Covid 19 infection and his electrolytes abnormalities and metabolic derangements. Recommendation: Discussed and updated his regarding his condition. Patient is not making a dramatic improvement he is about the same over the last few days, may consider transferring the patient out of the ICU to a regular medical floor today or in the next 24 hours. Continue BiPAP, and titrate settings accordingly Continue Solu-Medrol however will cut down on the dose. Continue Zosyn empirically. Continue bronchodilators. Patient received Tocilizumab x2 . Again had a long discussion about his condition with his Prognosis remains guarded. Time with Patient: Less than 30
[2020-10-24 19:20] LABS: Glucose,Whole Blood 154 mg/dL (75-99)
[2020-10-24] MEDS: NON FORMULARY DRUG (Rosuvastatin 20 MG Tablet) PO SCH (19:39)
[2020-10-24] MEDS: methylPREDNISolone SOD SUCCI 40 MG/ML 1 ML VIAL IV SCH (19:58)
[2020-10-24] MEDS: MIRTAZAPINE 15 MG TAB PO SCH (19:59)
[2020-10-24 20:49] LABS: Glucose,Whole Blood 165 mg/dL (75-99)
--- NOTE | 2020-10-24 21:37 | P.PN ---
Subjective Progress Note Date: 10/24/20 HISTORY OF PRESENT ILLNESS This is a 70 years old male patient of Dr. Polo with past medical history of pulmonary embolism diagnosed in [place] 2 years ago, history of lower extremity DVT, coronary artery disease no stent, history of heart failure unknown if systolic or diastolic, COPD, hyperlipidemia, hypertension, osteoarthritis, prostate cancer, skin disorder,'s obstructive sleep apnea on CPAP, subclavian steal syndrome with stent placement, history of recent penile implant on 07/27/2016. Patient has chronic shortness of breath that has been going on for the past 2 years since the diagnosis of pulmonary embolism with O2 requirements at 2 L nasal cannula Patient is currently on maintenance dose of xarelto at 10 mg daily. He presents emergency room secondary to worsening dyspnea, x 7 days without any medical intervention prior to this, He was seen in the Emergency room for the shortness of breath, worsening dyspnea and exertion, and was found to be SARS cov 2 positive. Chest x-ray, shows bilateral pulmonary interstitial infiltrates compared to old exam, with a similar atelectasis. Poor inspiration, no hilar masses laboratory shows hemoglobin of 12.9, WBC count of 7, creatinine of 1.47, iron of 1.2, glucose 120 CRP 88, pro-calcitonin slightly elevated 0.22. Patient denies any chronic prednisone exposure, Consult were made with pulmonary, Dr. Ramos, pulse oximetry would be 9 PT 1697 at 2-3 L nasal cannula, blood pressure of 129/66. 10/11: Patient was seen for follow-up today, he is a little bit tachypnea, very small amount of labored breathing only on exertion, no conversational dyspnea, O2 at 2 L, sats 95%, no clearance from pulmonary medicine are stable were rounding today, no cough, no pleurisy, no chest pain no palpitations, creatinine at 1.5 today, electrolytes are normal, wbc of 4.7, LDH of 784, ferritin 533 patient is on IV dexamethasone maintained on Xarelto, no new treatment from pulmonary critical care today, currently stable 10/12: A-Team is called during the night due to hypoxia and patient was started on AirVo. Respiratory rate is been in the 40s, heart rate 74, afebrile, pulse ox 96%. Chest x-ray from yesterday revealed patchy. Hilar and basilar infiltrates persist and have progressed slightly in the interval. Repeat blood work reveals WBC 6.8, hemoglobin 12.4, platelet count 135. LDH 1228. C- reactive protein 85.1. The patient has developed increasing difficulty with breathing. He denies having any chest pain. He states he could not sleep through the night. 10/13: Patient states that his breathing status is about the same as yesterday or little bit more difficult. He denies any coughing up blood. He denies any abdominal pain, nausea or vomiting, no diarrhea. Patient remains on Arava with pulse ox of 88-90%. Afebrile, heart rate 69, respiratory rate 40, blood pressure 137/76. Patient is status post 2 doses of Tocilizumab. patient is followed closely by pulmonary medicine. 10/14: Patient is currently on AirVo and nonrebreather but states that he is feeling better today and that his breathing is better. He has been afebrile, heart rate 72, respiratory rate 36, blood pressure 130/70, pulse ox 90%. He denies having abdominal pain, nausea vomiting or diarrhea. He remains on Solu- Medrol 60 mg IV every 6 hours. 10/15: Patient was transferred to the ICU per Dr. Wright. He is currently on AirVo only at time of evaluation and is eating his breakfast. Patient has been maintained on Arava plus nonrebreather. His breathing status appears to be improved from yesterday. His pulse ox is 88%. Afebrile, heart rate 76, respiratory rate 25, blood pressure 131/81. Repeat chest x-ray reveals stable chest. Repeat blood work reveals normal CBC. D-dimer 1.85. C-reactive protein 29. LDH is pending. Ferritin level 1340.6. Patient is scheduled for PICC line insertion today. Lasix 40 mg IV push ordered today by pulmonary medicine. Patient is continued on Solu-Medrol 60 mg every 6 hours. Patient not receiving any antibiotics at this time. 10/16: Patient remains in the intensive care unit. He was off nonrebreather and only on AirVo yesterday most of the day. Now he is on both AirVo and nonrebreather and taking the nonrebreather on and off as he needs it. He is eating 50% of his meals. He has been afebrile, heart rate 69, respiratory rate 34, blood pressure 142/80, pulse ox 88% on both AirVo and nonrebreather. Repeat blood work reveals W BC 13.5, hemoglobin 13.6, platelet count 247. Electrolytes normal. BUN 52 and creatinine 1.2. Blood sugars running between 120 975. Total bilirubin 1.0, AST 111, ALT 137, alkaline phosphatase 80. C-reactive p rotein 16.3, CK 65. Repeat chest x-ray reveals bilateral lower lobe infiltrate and small effusion with coarsened interstitium correlate for venous congestion versus interstitial pneumonia. Patient surprisingly feels his breathing is stable. He has no new complaints. 10/17: Patient remains in intensive care unit. He has been off the nonrebreather for the past hour and a half with only AirVo with pulse ox in the high 80s. He has been afebrile, heart rate in the 70s, blood pressure 142/86, respiratory rate in 30s. Patient verbalizes that his breathing status is improving. Repeat blood work reveals WBC 15.8, hemoglobin 13.7, platelet count 239. Electrolytes normal. BUN 54 and creatinine 1.09. Blood sugars running between 120 765. Total bilirubin 1.5, AST 195, ALT 304, alkaline phosphatase 92, LDH 2785. CK 51, C-reactive protein 11.3. Repeat chest x-ray reveals mild interval pro gression in the lung infiltrates within the right lung. Left lung is stable. No change in small bilateral pleural effusions. 10/18: Patient remains in intensive care unit. He is seen today on AirVo and nonrebreather and pulse ox has been marginal in the low to mid 80s. Heart rate is in the 70s, respiratory rate in the 30s, blood pressure 136/87. He has been afebrile. Repeat blood work reveals WBC 18.4. Electrolytes normal, BUN 59 and creatinine 1.03. Blood sugars running between 126 and 166. Ferritin level 1817. D-dimer 11.45. Total bilirubin 1.7, AST 128, ALT 309, alkaline phosphat ase 121. LDH 3174. CK 98, C-reactive protein 5.9. Repeat chest x-ray reveals left perihilar and basilar infiltrates persist 10/19: Patient's breathing status remains about the same. He has been afebrile, heart rate 70s, respiratory rate 29, blood pressure 143/87. Pulse ox is running mid to high 80s with nonrebreather and high flow nasal cannula. WBC 19.1, hemoglobin 14.1, platelet count 247. D-dimer 11.64. Electrolytes normal. BUN 55 and creatinine 1.05. Blood sugars running between 124 and 197. Ferritin 1583. Total bilirubin 1.4, AST 99, ALT 266, alk phos was 123. LDH 2962. C-re active protein 5.4. Repeat chest x-ray shows no pneumothorax. Interstitial and patchy bilateral infiltrates. 10/20: Patient remains in the intensive care unit and he is currently on nonrebreather and high flow nasal cannula. Pulse ox is running 86-91%. He has been afebrile, heart rate in the 70s, respiratory rate 29, blood pressure 145/81. WBC 21.3. Sodium 136, BUN 57 and creatinine 1.07. Blood sugars running between 100 3459. Ferritin level 1616. Total bilirubin 1.8, AST 87, ALT 262, alkaline phosphatase 131. C-reactive protein normal at less than 5. Repeat chest x-ray reveals relatively stable with interstitial infiltrates and possible trace effusions. 10/21:patient remains in the intensive care unit. He is on Arava oh and nonrebreather with pulse ox in the mid 80s. Patient has been afebrile.Heart rate in the 70s and 60s, respiratory rate in the mid to high 20s, pulse ox a nywhere between 81-89%, blood pressure 119/81. WBC 27.3, hemoglobin 15, platelet count 202. Electrolytes normal, BUN 61 and creatinine 1.11. Blood sugars running between 141 and 158. Ferritin level 1639, total bilirubin 2.0, AST 104, ALT 296, alkaline phosphatase 136. LDH 2774. C-reactive protein less than 5. Patient is continued on Zosyn, IV Solu-Medrol heart rate in the 60s and 70s, respiratory rate in the 20s n and IV Lasix. 10/22: Patient remains in the intensive care unit currently on BiPAP. Patient had some increased anxiety this morning was given Xanax and was lethargic following with desats and subsequently placed on BiPAP. He's been running high 90s for pulse ox. He's been afebrile, heart rate in the 70s, respiratory rate in the 20s to 30s, blood pressure 125/91. Repeat blood work reveals W BC 22.7, hemoglobin 14.3, platelet count 173. Electrolytes are normal except for CO2 of 31, BUN 64 and creatinine 1.17. Ferritin 1475.9. Total bilirubin 2.3, AST 88, ALT 281, alkaline phosphatase 133. LDH 2416. Blood sugars running between 144 and 158. Repeat chest x-ray reveals mild diffuse increased lung opacities. Patient is continued on Zosyn, Solu-Medrol. Patient may require intubation. 10/23: The patient remains on BiPAP with pulse ox between 86 and 92 with FiO2 of 60%, respiratory rate anywhere between 28 and 40, heart rate in the 80s, afebrile. Patient is getting tired and fatigued. He actually pulled his PICC line out and arterial line and femoral triple-lumen catheter was placed. Repeat chest x-ray reveals similar diffuse bilateral interstitial opacities. Possible trace right effusion. Patient's mental status is stable today. He did have some mild confusion and lethargy yesterday. WBC 24.3. BUN 73 and creatinine 1.34. Blood sugars running between 140 154. Total bilirubin 3.1, AST 117, ALT 329, alkaline phosphatase 137. 3: Patient is remain on BiPAP with high flow O2 he still declining he is not able to eat his oral medication was switched to IV. More adjustment with his medication by pulmonary, his marker including d-dimer still elevated blood sugars mildly elevated as well 13 still at 1772 with white blood cell still 21,000. We'll continue current management his prognosis still very guarded at this point. REVIEW OF SYSTEMS Constitutional: Denies fever, no chills, no night sweats. Generalized weakness, fatigue. EENT: No headache. No dizziness. No nasal drainage or congestion. No epistaxis. No sore throat. Lungs: Reports shortness of breathworsening, reports cough, no sputum production. No wheezing. reports dyspnea with exertion. Cardiovascular: No chest pain, no lower extremity edema. No palpitations. No paroxysmal nocturnal dyspnea. No orthopnea. No lightheadedness or dizziness. No syncopal episodes. Abdominal: No abdominal pain. No nausea, vomiting. No diarrhea. No con stipation. No bloody or tarry stools reports loss of appetite. Genitourinary: No dysuria, increased frequency, urgency. No urinary retention. Musculoskeletal: No myalgias. Reports muscle weakness, no gait dysfunction, no frequent falls. No back pain. No neck pain. Integumentary: No wounds, no lesions. No rash or pruritus. No unusual bruising. High flow nasal cannula Neurologic: No aphasia. No facial droop. No change in mentation. No head injury. No headache. Psychiatric: No depression. No anxiety. No mood swings. Reports insomnia. Endocrine: Noted abnormal blood sugars. No weight change. PHYSICAL EXAMINATION Gen: This is a 70-year-old male. He is resting in ICU bed and appears to be fatigued. Patient is on BiPAP. HEENT: Head is atraumatic, normocephalic. Pupils equal, round. Sclerae is anicteric. NECK: Supple. No JVD. No lymphadenopathy. No thyromegaly. LUNGS: Few scattered rhonchi and scattered expiratory wheezing. Mild intercos carla retractions. HEART: Regular rate and rhythm. No murmur. ABDOMEN: Soft. Bowel sounds are present. No masses. No tenderness. EXTREMITIES: No pedal edema. No calf tenderness. Dorsalis pedis palpable bilaterally. NEUROLOGICAL: Patient is awake, alert and oriented x3. Cranial nerves 2 through 12 are grossly intact. ASSESSMENT AND PLAN 1. Acute SARS COV2, infection with acute hypoxic respiratory failure. Patient remain sick currently still on BiPAP with high flow oxygen. His responded to treatment has not been done well so far. Patient still seen pulmonary regular basis his pulse ox is still marginal and still had higher possibility to end up on the respirator. Continue current supportive care at this point most of patient's oral meds were switched to IV because he is not able to take his BiPAP to swallow any pills or eat any meals. 2. Chronic anticoagulation, secondary to history of DVT. Continue Xarelto. 3. Acute pneumonitis: Beside the Covid 19 pneumonia patient has a combination of bacterial pneumonia remain on Zosyn currently is chest x-ray does not show much improvement at this point. 4. COPD with exacerbation Continue albuterol- Atrovent as needed . Continue Symbicort twice daily and still on high dose of steroid. 5 Chronic systolic heart failure and ischemic cardiomyopathy with prior ejection fraction 40%, Lasix 40 mg IV daily aspirin 81 mg metoprolol. 6 Subclavian steal syndrome status post stent in the right carotid. 7 Benign prostatic hypertrophy. Monitor for urinary retention. Continue Flomax daily 8 History of coronary artery disease with previous myocardial infarction. 9 Obstructive Sleep apnea. Patient to continue his own CPAP machine. 10 Gastroesophageal reflux disease and gastric intestinal prophylaxis. Continue Nexium or equivalent. 11. Hypertension. Continue bystolic 10 mg daily . Hold aldactone. 12. Depression. Continue Cymbalta 150 mg twice daily. 13. History of ADHD. Strattera on hold. 13. Chronic kidney disease stage III, stable 14. Hyperlipidemia. Continue Crestor daily. 15 CODE STATUS full code Prognosis still guarded. Objective - Vital Signs Vital signs: Vital Signs Temp 98.1 F 10/24/20 04:00 Pulse 80 10/24/20 05:00 Resp 23 10/24/20 05:00 BP 156/90 10/24/20 00:00 Pulse Ox 94 L 10/24/20 05:00 Intake & Output 10/23/20 10/23/20 10/24/20 06:59 18:59 06:59 Intake Total 813 499 207 Output Total 1045 1485 785 Balance -232 -986 -578 Weight 109.5 kg 110.3 kg Intake: IV 273 499 207 KVO 240 260 180 Piperacillin-Tazobactam 3 200 .375 gm In Sodium Chloride 0.9% 100 ml @ 25 mls/hr IVPB Q8HR [facility] Rx# :[id number] pressure bag NS 33 39 27 Oral 540 Output: Urine 1045 1485 785 Other: Voiding Method Indwelling Catheter Indwelling Catheter Indwelling Catheter ABP, PAP, CO, CI - Last Documented Arterial Blood Pressure 179/95 - Labs CBC & Chem 7: 10/24/20 03:50 10/24/20 03:50 Labs: Abnormal Lab Results - Last 24 Hours (Table) 10/23/20 10/23/20 10/23/20 Range/Units 06:15 11:19 17:05 WBC (3.8-10.6) k/uL Neutrophils # (1.3-7.7) k/uL Lymphocytes # (1.0-4.8) k/uL Fibrinogen (200-500) mg/dL D-Dimer (<0.60) mg/L FEU Sodium (137-145) mmol/L Chloride (98-107) mmol/L BUN (9-20) mg/dL Creatinine (0.66-1.25) mg/dL Glucose (74-99) mg/dL POC Glucose (mg/dL) 145 H 147 H 146 H (75-99) mg/dL Total Bilirubin (0.2-1.3) mg/dL AST (17-59) U/L ALT (4-49) U/L Alkaline Phosphatase (38-126) U/L Albumin (3.5-5.0) g/dL 10/23/20 10/24/20 10/24/20 Range/Units 20:02 03:50 03:50 WBC 21.6 H (3.8-10.6) k/uL Neutrophils # 20.8 H (1.3-7.7) k/uL Lymphocytes # 0.2 L (1.0-4.8) k/uL Fibrinogen 137 L (200-500) mg/dL D-Dimer 5.49 H (<0.60) mg/L FEU Sodium (137-145) mmol/L Chloride (98-107) mmol/L BUN (9-20) mg/dL Creatinine (0.66-1.25) mg/dL Glucose (74-99) mg/dL POC Glucose (mg/dL) 140 H (75-99) mg/dL Total Bilirubin (0.2-1.3) mg/dL AST (17-59) U/L ALT (4-49) U/L Alkaline Phosphatase (38-126) U/L Albumin (3.5-5.0) g/dL 10/24/20 Range/Units 03:50 WBC (3.8-10.6) k/uL Neutrophils # (1.3-7.7) k/uL Lymphocytes # (1.0-4.8) k/uL Fibrinogen (200-500) mg/dL D-Dimer (<0.60) mg/L FEU Sodium 149 H (137-145) mmol/L Chloride 115 H (98-107) mmol/L BUN 75 H (9-20) mg/dL Creatinine 1.28 H (0.66-1.25) mg/dL Glucose 163 H (74-99) mg/dL POC Glucose (mg/dL) (75-99) mg/dL Total Bilirubin 3.2 H (0.2-1.3) mg/dL AST 119 H (17-59) U/L ALT 391 H (4-49) U/L Alkaline Phosphatase 128 H (38-126) U/L Albumin 3.4 L (3.5-5.0) g/dL
[2020-10-25] MEDS: PIPERACILLIN-TAZOBACTAM 3.375 GM in SODIUM CHLORIDE 0.9% 100 ML IVPB SCH ×3 (00:12→15:06)
[2020-10-25 05:55] LABS: Basophils % (A) 0 %; Eosinophils % (A) 0 %; HCT 42.7 % (39.0-53.0); HGB 13.9 gm/dL (13.0-17.5); Lymphocytes # (A) 0.2 k/uL (1.0-4.8); Lymphocytes % (A) 1 %; MCH 31.6 pg (25.0-35.0); MCHC 32.6 g/dL (31.0-37.0); MCV 96.9 fL (80.0-100.0); Monocytes # (A) 0.7 k/uL (0-1.0); Monocytes % (A) 3 %; Neutrophils # (A) 21.7 k/uL (1.3-7.7); Neutrophils % (A) 96 %; Platelet Count 172 k/uL (150-450); RBC 4.41 m/uL (4.30-5.90); RDW 14.8 % (11.5-15.5); WBC 22.7 k/uL (3.8-10.6)
[2020-10-25 06:07] LABS: Albumin 3.2 g/dL (3.5-5.0); Calcium 8.9 mg/dL (8.4-10.2); Potassium 4.4 mmol/L (3.5-5.1); Total Bilirubin 3.7 mg/dL (0.2-1.3); Total Protein 6.1 g/dL (6.3-8.2)
[2020-10-25 06:28] LABS: Glucose,Whole Blood 190 mg/dL (75-99)
[2020-10-25] MEDS: INSULIN ASPART (NovoLOG) 100 UNIT/ML VIAL SQ SCH ×4 (06:30→20:53)
[2020-10-25] MEDS: SYMBICORT 160-4.5 MCG INHALER INHALATION SCH ×2 (07:33→21:09)
[2020-10-25] MEDS: TIOTROPIUM 2.5 MCG INHALER INHALATION SCH (07:33)
[2020-10-25] MEDS: ALBUTEROL HFA INHALER INHALATION PRN ×4 (07:33→21:09)
--- NOTE | 2020-10-25 07:34 | XR ---
EXAMINATION TYPE: XR chest 1V portable DATE OF EXAM: 10/25/2020 COMPARISON: 10/24/2020 HISTORY: Shortness of breath TECHNIQUE: Single frontal view of the chest is obtained. FINDINGS: There is increased prominence of 3.7 cm rounded focus a peripheral opacity in the right lo wer lung. There is persistent mild bibasilar streaky opacity. No pleural effusion, or pneumothorax se en. The cardiac silhouette size is within normal limits. The osseous structures are intact. Bilate ral shoulder arthroplasties and right subclavian vascular stent seen. IMPRESSION: Increased prominence of indeterminate right lower lobe focus. Consider CT for further ev aluation.
[2020-10-25] MEDS: NON FORMULARY DRUG (Atomoxetine Hcl [Strattera] 60 MG Capsule) PO SCH (07:48)
[2020-10-25] MEDS: NON FORMULARY DRUG (Atomoxetine Hcl [Strattera] 40 MG Capsule) PO SCH (07:48)
[2020-10-25] MEDS: VENLAFAXINE HCL 75 MG TAB PO SCH ×2 (07:58→20:52)
[2020-10-25] MEDS: CHOLECALCIFEROL 25 MCG (1000 IU) TABLET PO SCH (07:58)
[2020-10-25] MEDS: levETIRAcetam IV 500 MG in SODIUM CHLORIDE 0.9% 100 ML IVPB SCH ×2 (07:58→20:52)
[2020-10-25] MEDS: MULTIVITAMINS, THERA 1 EACH TAB PO SCH (07:58)
[2020-10-25] MEDS: guaiFENesin 600 MG TABLET.ER PO SCH ×2 (07:58→20:51)
[2020-10-25] MEDS: ASPIRIN 81 MG PO SCH (07:59)
[2020-10-25] MEDS: NEBIVOLOL 5 MG TAB PO SCH (07:59)
[2020-10-25] MEDS: METOPROLOL SUCCINATE (ER) 25 MG TAB.ER.24H PO SCH (07:59)
[2020-10-25] MEDS: FUROSEMIDE 10 MG/ML 4 ML VIAL IV SCH (07:59)
[2020-10-25] MEDS: RIVAROXABAN 20 MG TAB PO SCH (07:59)
[2020-10-25] MEDS: methylPREDNISolone SOD SUCCI 40 MG/ML 1 ML VIAL IV SCH ×2 (07:59→20:52)
[2020-10-25] MEDS: PANTOPRAZOLE 40 MG/10 ML VIAL IVP SCH (08:00)
[2020-10-25] MEDS: DEXTROSE 5% IN WATER 1,000 ML IV SCH ×3 (08:38→20:55)
--- NOTE | 2020-10-25 10:09 | P.PN ---
Subjective Progress Note Date: 10/25/20 HISTORY OF PRESENT ILLNESS This is a 70 years old male patient of Dr. Polo with past medical history of pulmonary embolism diagnosed in [place] 2 years ago, history of lower extremity DVT, coronary artery disease no stent, history of heart failure unknown if systolic or diastolic, COPD, hyperlipidemia, hypertension, osteoarthritis, prostate cancer, skin disorder,'s obstructive sleep apnea on CPAP, subclavian steal syndrome with stent placement, history of recent penile implant on 07/27/2016. Patient has chronic shortness of breath that has been going on for the past 2 years since the diagnosis of pulmonary embolism with O2 requirements at 2 L nasal cannula Patient is currently on maintenance dose of xarelto at 10 mg daily. He presents emergency room secondary to worsening dyspnea, x 7 days without any medical intervention prior to this, He was seen in the Emergency room for the shortness of breath, worsening dyspnea and exertion, and was found to be SARS cov 2 positive. Chest x-ray, shows bilateral pulmonary interstitial infiltrates compared to old exam, with a similar atelectasis. Poor inspiration, no hilar masses laboratory shows hemoglobin of 12.9, WBC count of 7, creatinine of 1.47, iron of 1.2, glucose 120 CRP 88, pro-calcitonin slightly elevated 0.22. Patient denies any chronic prednisone exposure, Consult were made with pulmonary, Dr. Ramos, pulse oximetry would be 9 PT 1697 at 2-3 L nasal cannula, blood pressure of 129/66. 10/11: Patient was seen for follow-up today, he is a little bit tachypnea, very small amount of labored breathing only on exertion, no conversational dyspnea, O2 at 2 L, sats 95%, no clearance from pulmonary medicine are stable were rounding today, no cough, no pleurisy, no chest pain no palpitations, creatinine at 1.5 today, electrolytes are normal, wbc of 4.7, LDH of 784, ferritin 533 patient is on IV dexamethasone maintained on Xarelto, no new treatment from pulmonary critical care today, currently stable 10/12: A-Team is called during the night due to hypoxia and patient was started on AirVo. Respiratory rate is been in the 40s, heart rate 74, afebrile, pulse ox 96%. Chest x-ray from yesterday revealed patchy. Hilar and basilar infiltrates persist and have progressed slightly in the interval. Repeat blood work reveals WBC 6.8, hemoglobin 12.4, platelet count 135. LDH 1228. C- reactive protein 85.1. The patient has developed increasing difficulty with breathing. He denies having any chest pain. He states he could not sleep through the night. 10/13: Patient states that his breathing status is about the same as yesterday or little bit more difficult. He denies any coughing up blood. He denies any abdominal pain, nausea or vomiting, no diarrhea. Patient remains on Arava with pulse ox of 88-90%. Afebrile, heart rate 69, respiratory rate 40, blood pressure 137/76. Patient is status post 2 doses of Tocilizumab. patient is followed closely by pulmonary medicine. 10/14: Patient is currently on AirVo and nonrebreather but states that he is feeling better today and that his breathing is better. He has been afebrile, heart rate 72, respiratory rate 36, blood pressure 130/70, pulse ox 90%. He denies having abdominal pain, nausea vomiting or diarrhea. He remains on Solu- Medrol 60 mg IV every 6 hours. 10/15: Patient was transferred to the ICU per Dr. Wright. He is currently on AirVo only at time of evaluation and is eating his breakfast. Patient has been maintained on Arava plus nonrebreather. His breathing status appears to be improved from yesterday. His pulse ox is 88%. Afebrile, heart rate 76, respiratory rate 25, blood pressure 131/81. Repeat chest x-ray reveals stable chest. Repeat blood work reveals normal CBC. D-dimer 1.85. C-reactive protein 29. LDH is pending. Ferritin level 1340.6. Patient is scheduled for PICC line insertion today. Lasix 40 mg IV push ordered today by pulmonary medicine. Patient is continued on Solu-Medrol 60 mg every 6 hours. Patient not receiving any antibiotics at this time. 10/16: Patient remains in the intensive care unit. He was off nonrebreather and only on AirVo yesterday most of the day. Now he is on both AirVo and nonrebreather and taking the nonrebreather on and off as he needs it. He is eating 50% of his meals. He has been afebrile, heart rate 69, respiratory rate 34, blood pressure 142/80, pulse ox 88% on both AirVo and nonrebreather. Repeat blood work reveals W BC 13.5, hemoglobin 13.6, platelet count 247. Electrolytes normal. BUN 52 and creatinine 1.2. Blood sugars running between 120 975. Total bilirubin 1.0, AST 111, ALT 137, alkaline phosphatase 80. C-reactive p rotein 16.3, CK 65. Repeat chest x-ray reveals bilateral lower lobe infiltrate and small effusion with coarsened interstitium correlate for venous congestion versus interstitial pneumonia. Patient surprisingly feels his breathing is stable. He has no new complaints. 10/17: Patient remains in intensive care unit. He has been off the nonrebreather for the past hour and a half with only AirVo with pulse ox in the high 80s. He has been afebrile, heart rate in the 70s, blood pressure 142/86, respiratory rate in 30s. Patient verbalizes that his breathing status is improving. Repeat blood work reveals WBC 15.8, hemoglobin 13.7, platelet count 239. Electrolytes normal. BUN 54 and creatinine 1.09. Blood sugars running between 120 765. Total bilirubin 1.5, AST 195, ALT 304, alkaline phosphatase 92, LDH 2785. CK 51, C-reactive protein 11.3. Repeat chest x-ray reveals mild interval pro gression in the lung infiltrates within the right lung. Left lung is stable. No change in small bilateral pleural effusions. 10/18: Patient remains in intensive care unit. He is seen today on AirVo and nonrebreather and pulse ox has been marginal in the low to mid 80s. Heart rate is in the 70s, respiratory rate in the 30s, blood pressure 136/87. He has been afebrile. Repeat blood work reveals WBC 18.4. Electrolytes normal, BUN 59 and creatinine 1.03. Blood sugars running between 126 and 166. Ferritin level 1817. D-dimer 11.45. Total bilirubin 1.7, AST 128, ALT 309, alkaline phosphat ase 121. LDH 3174. CK 98, C-reactive protein 5.9. Repeat chest x-ray reveals left perihilar and basilar infiltrates persist 10/19: Patient's breathing status remains about the same. He has been afebrile, heart rate 70s, respiratory rate 29, blood pressure 143/87. Pulse ox is running mid to high 80s with nonrebreather and high flow nasal cannula. WBC 19.1, hemoglobin 14.1, platelet count 247. D-dimer 11.64. Electrolytes normal. BUN 55 and creatinine 1.05. Blood sugars running between 124 and 197. Ferritin 1583. Total bilirubin 1.4, AST 99, ALT 266, alk phos was 123. LDH 2962. C-re active protein 5.4. Repeat chest x-ray shows no pneumothorax. Interstitial and patchy bilateral infiltrates. 10/20: Patient remains in the intensive care unit and he is currently on nonrebreather and high flow nasal cannula. Pulse ox is running 86-91%. He has been afebrile, heart rate in the 70s, respiratory rate 29, blood pressure 145/81. WBC 21.3. Sodium 136, BUN 57 and creatinine 1.07. Blood sugars running between 100 3459. Ferritin level 1616. Total bilirubin 1.8, AST 87, ALT 262, alkaline phosphatase 131. C-reactive protein normal at less than 5. Repeat chest x-ray reveals relatively stable with interstitial infiltrates and possible trace effusions. 10/21:patient remains in the intensive care unit. He is on Arava oh and nonrebreather with pulse ox in the mid 80s. Patient has been afebrile.Heart rate in the 70s and 60s, respiratory rate in the mid to high 20s, pulse ox a nywhere between 81-89%, blood pressure 119/81. WBC 27.3, hemoglobin 15, platelet count 202. Electrolytes normal, BUN 61 and creatinine 1.11. Blood sugars running between 141 and 158. Ferritin level 1639, total bilirubin 2.0, AST 104, ALT 296, alkaline phosphatase 136. LDH 2774. C-reactive protein less than 5. Patient is continued on Zosyn, IV Solu-Medrol heart rate in the 60s and 70s, respiratory rate in the 20s n and IV Lasix. 10/22: Patient remains in the intensive care unit currently on BiPAP. Patient had some increased anxiety this morning was given Xanax and was lethargic following with desats and subsequently placed on BiPAP. He's been running high 90s for pulse ox. He's been afebrile, heart rate in the 70s, respiratory rate in the 20s to 30s, blood pressure 125/91. Repeat blood work reveals W BC 22.7, hemoglobin 14.3, platelet count 173. Electrolytes are normal except for CO2 of 31, BUN 64 and creatinine 1.17. Ferritin 1475.9. Total bilirubin 2.3, AST 88, ALT 281, alkaline phosphatase 133. LDH 2416. Blood sugars running between 144 and 158. Repeat chest x-ray reveals mild diffuse increased lung opacities. Patient is continued on Zosyn, Solu-Medrol. Patient may require intubation. 2: The patient remains on BiPAP with pulse ox between 86 and 92 with FiO2 of 60%, respiratory rate anywhere between 28 and 40, heart rate in the 80s, afebrile. Patient is getting tired and fatigued. He actually pulled his PICC line out and arterial line and femoral triple-lumen catheter was placed. Repeat chest x-ray reveals similar diffuse bilateral interstitial opacities. Possible trace right effusion. Patient's mental status is stable today. He did have some mild confusion and lethargy yesterday. WBC 24.3. BUN 73 and creatinine 1.34. Blood sugars running between 140 154. Total bilirubin 3.1, AST 117, ALT 329, alkaline phosphatase 137. /3: Patient is remain on BiPAP with high flow O2 he still declining he is not able to eat his oral medication was switched to IV. More adjustment with his medication by pulmonary, his marker including d-dimer still elevated blood sugars mildly elevated as well 13 still at 1772 with white blood cell still 21,000. We'll continue current management his prognosis still very guarded at this point. 10/25: Patient remain on BiPAP his responses quite bit low, patient is not doing well oxygenation is down, possibility of him being on the respirator was extremely high this point. He had a sitter on his bedside today he still very confused and agitated. REVIEW OF SYSTEMS Constitutional: Denies fever, no chills, no night sweats. Generalized weakness, fatigue. EENT: No headache. No dizziness. No nasal drainage or congestion. No epistaxis. No sore throat. Lungs: Reports shortness of breathworsening, reports cough, no sputum production. No wheezing. reports dyspnea with exertion. Cardiovascular: No chest pain, no lower extremity edema. No palpitations. No paroxysmal nocturnal dyspnea. No orthopnea. No lightheadedness or dizziness. No syncopal episodes. Abdominal: No abdominal pain. No nausea, vomiting. No diarrhea. No constipation. No bloody or tarry stools reports loss of appetite. Genitourinary: No dysuria, increased frequency, urgency. No urinary retention. Musculoskeletal: No myalgias. Reports muscle weakness, no gait dysfunction, no frequent falls. No back pain. No neck pain. Integumentary: No wounds, no lesions. No rash or pruritus. No unusual bru ising. High flow nasal cannula Neurologic: No aphasia. No facial droop. No change in mentation. No head injury. No headache. Psychiatric: No depression. No anxiety. No mood swings. Reports insomnia. Endocrine: Noted abnormal blood sugars. No weight change. PHYSICAL EXAMINATION Gen: This is a 70-year-old male. He is resting in ICU bed and appears to be fatigued. Patient is on BiPAP. HEENT: Head is atraumatic, normocephalic. Pupils equal, round. Sclerae is anicteric. NECK: Supple. No JVD. No lymphadenopathy. No thyromegaly. LUNGS: Few scattered rhonchi and scattered expiratory wheezing. Mild intercostal retractions. HEART: Regular rate and rhythm. No murmur. ABDOMEN: Soft. Bowel sounds are present. No masses. No tenderness. EXTREMITIES: No pedal edema. No calf tenderness. Dorsalis pedis palpable bilaterally. NEUROLOGICAL: Patient is awake, alert and oriented x3. Cranial nerves 2 through 12 are grossly intact. ASSESSMENT AND PLAN 1. Acute SARS COV2, infection with acute hypoxic respiratory failure. Patient remain sick currently still on BiPAP with high flow oxygen. His responded to treatment has not been done well so far. Patient still seen pulmonary regular basis his pulse ox is still marginal and still had higher possibility to end up on the respirator. With a high possibility of patient ended up on mechanical ventilation. 2. Acute pneumonitis: Beside the Covid 19 pneumonia patient has a combination of bacterial pneumonia remain on Zosyn currently is chest x-ray does not show much improvement at this point. 3. COPD with exacerbation Continue albuterol- Atrovent as needed . Continue Symbicort twice daily and still on high dose of steroid. 4. Chronic systolic heart failure and ischemic cardiomyopathy with prior ejection fraction 40%, Lasix 40 mg IV daily aspirin 81 mg metoprolol. 5 History of coronary artery disease with previous myocardial infarction. 6 Subclavian steal syndrome status post stent in the right carotid. 7 Benign prostatic hypertrophy. Monitor for urinary retention. Continue Flomax daily 8 Hypertension. Continue bystolic 10 mg daily . Hold aldactone. 9 Obstructive Sleep apnea. Patient to continue his own CPAP machine. 10 Gastroesophageal reflux disease and gastric intestinal prophylaxis. Continue Nexium or equivalent. 11. Chronic kidney disease stage III, stable 12 CODE STATUS full code Prognosis still guarded. Patient is now doing well mortalities very high at this point. Objective - Vital Signs Vital signs: Vital Signs Temp 97.9 F 10/25/20 00:00 Pulse 100 10/25/20 02:00 Resp 26 H 10/25/20 02:00 BP 156/90 10/24/20 00:00 Pulse Ox 89 L 10/25/20 02:00 Intake & Output 10/24/20 10/24/20 10/25/20 06:59 18:59 06:59 Intake Total 253 391 18 Output Total 1005 1245 345 Balance -022 -854 -327 Weight 110.3 kg Intake: IV 253 341 18 KVO 220 80 Piperacillin-Tazobactam 3 125 .375 gm In Sodium Chloride 0.9% 100 ml @ 25 mls/hr IVPB Q8HR [facility] Rx# :[id number] levETIRAcetam IV 500 mg 100 In Sodium Chloride 0.9% 100 ml @ 400 mls/hr IVPB Q12HR [facility] Rx#:[id number] pressure bag NS 33 36 18 Oral 50 Output: Urine 1005 1245 345 Other: Voiding Method Indwelling Catheter Indwelling Catheter Indwelling Catheter ABP, PAP, CO, CI - Last Documented Arterial Blood Pressure 142/88 - Labs CBC & Chem 7: 10/25/20 05:10 10/25/20 05:10 Labs: Abnormal Lab Results - Last 24 Hours (Table) 10/24/20 10/24/20 10/24/20 Range/Units 03:50 06:34 14:07 WBC (3.8-10.6) k/uL Neutrophils # (1.3-7.7) k/uL Lymphocytes # (1.0-4.8) k/uL POC Glucose (mg/dL) 167 H 151 H (75-99) mg/dL Ferritin 1772.8 H (22.0-322.0) ng/mL 10/24/20 10/24/20 10/25/20 Range/Units 19:19 20:47 05:10 WBC 22.7 H (3.8-10.6) k/uL Neutrophils # 21.7 H (1.3-7.7) k/uL Lymphocytes # 0.2 L (1.0-4.8) k/uL POC Glucose (mg/dL) 154 H 165 H (75-99) mg/dL Ferritin (22.0-322.0) ng/mL
--- NOTE | 2020-10-25 12:27 | P.PN ---
Subjective Progress Note Date: 10/25/20 Principal diagnosis: CoVID 19 pneumonia This is a pleasant 70-year-old gentleman follows with Dr. Polo as his primary care provider. He has a history of coronary artery disease, peripheral vascular disease, congestive heart failure, hyperlipidemia, hypertension, PE/DVT, obstructive sleep apnea utilizing CPAP, chronic obstructive pulmonary disease on home oxygen at 2 L/m per nasal cannula. The patient is a 1 week history of increasing shortness of breath, nausea, vomiting, diarrhea, weakness and was seen at [facility] and tested positive for CoVID and was instructed to go to the emergency room. Chest x-ray reveals mild bilateral pulmonary interstitial infiltrates. He is seen today in consultation on the selective care unit. He is currently sitting up in bed. Awake and alert in no acute distress. He is maintaining good O2 saturations in the mid 90s on 2 L/m per nasal cannula. He is afebrile. Hemodynamically stable. White count 4.7. Hemoglobin 12.9. Platelet count 116. Lymphocytes 0.7. D-dimer 0.18. Sodium 139. Potassium 4.3. Creatinine 1.51. LDH 784. C-reactive protein 88.5. Pro Calcitonin 0.22. He's been initiated on Symbicort, albuterol. Endocrine related with Xarelto. On dexamethasone, multivitamin. The patient is seen today 10/11/2020 in follow-up on the selective care unit. He is currently sitting up in bed. Awake and alert in no acute distress. He is requiring 3 L nasal cannula to maintain O2 saturations 88% and higher. He is normally on 2 L at home. He denies any worsening shortness of breath. He continues with a loose nonproductive cough. He is maintained on dexamethasone, vitamin supplements. Anticoagulated with Xarelto. 10/12/2020 the patient is being seen in follow-up in the selective units. The patient has been diagnosed having Covid 19 related pneumonia. The patient is 70 years old and he is known to have coronary artery disease, peripheral vascular disease, congestive heart failure, hyperlipidemia, hypertension, PE/DVT, obstructive sleep apnea utilizing CPAP, chronic obstructive pulmonary disease on home oxygen at 2 L/m per nasal cannula. The patient is currently maintained on dexamethasone, vitamin supplements. Anticoagulated with Xarelto. The patient's pulmonary status overnight decompensated. The patient had the replacement high flow oxygen at 60 L with an FiO2 of 60%. Chest x-ray showed diffuse bilateral pulmonary infiltrates, mostly peripheral, consistent with Covid 19 pneumonia, probably there is some interval worsening. The patient has bilateral shoulder replacement. The blood gases from yesterday showed a pH of 7.45 with a pCO2 of 38 and pO2 of 63. His inflammatory markers from today are elevated. LDH level is up to 1228 and a CRP level is up to 85. Need 2020, the patient is still on high flow oxygen at 60 L with an FiO2 of 55%. Based on the significant drop in oxygenation, which The patient on steroids and the patient is currently on Decadron and we added Toci 400 mg and the patient received only 1 dose. He is going to receive his second dose of 400 mg today. Patient's oxygenation is stable. D-dimer is down at 0.33. His LDH level is at 1228 and the CRP is at 85. The chest x-ray from yesterday showed bilateral patchy pulmonary infiltrates. The patient has approximately 2 fibrillation and is maintained on Xarelto. The patient also is known to have coronary artery disease, peripheral vascular disease, congestive heart failure, hyperlipidemia, hypertension, PE/DVT, obstructive sleep apnea utilizing CPAP, chronic obstructive pulmonary disease on home oxygen at 2 L/m per nasal cannula. On 10/14/2020, the patient is gradually getting worse. He was desaturating despite being on high flow oxygen at 60 L and an FiO2 of 90% and he is also utilizing 100% nonrebreather facemask. Note that this patient has been treated aggressively. He received Decadron. He also received 2 doses of Tocilizumab. . The patient had a d-dimer of 1.06 and the rest of the inflammatory markers are still pending for now. Meanwhile, his labs are essentially within normal limits and his creatinine is down to 1.2. He remains on Decadron 6 mg IV every 24 hours. He is also on long-term antibiotic ventilation with Xarelto 20 mg by mouth daily. Note that the patient has previous history of DVT and pulmonary embolism. He has obstructive sleep apnea and he has COPD and is maintained on oxygen at 2 L per minute at home for chronic hypoxic respiratory failure. He has hypertension and hyperlipidemia congestion heart failure and peripheral vascular disease in addition to CABG as comorbid conditions. His last chest x- ray was from 09/14/2020 and a repeat chest x-ray will be ordered. His last chest x-ray showed diffuse breath and pulmonary infiltrates, mainly the peripheries consistent with Covid 19 related pneumonia. 10/15/2020, the patient is currently in the intensive care unit. Just like yesterday, he remains on high flow oxygen 6 L with an FiO2 of 90% and the patient is also utilizing 100% nonrebreather facemask. His current pulse ox is around 91%. He is comfortable. Is at the rate is in the low 30s. His chest x- ray from today showing stable bilateral pulmonary infiltrates without any major interval change compared to yesterday. His blood work from today shows no electrolyte abnormalities, creatinine stable at 1.2. His inflammatory markers are still pending. CRP is down to 29, LDH is pending for now. The d-dimer is at 1.85. In terms of therapy, and he is on IV Solu-Medrol 60 mg every 6 hours is also on multivitamins and he remains on long-term anticoagulation with Xarelto. He is lethargic. Oral intake is quite diminished at this point in time. No altered mentation. Is able to follow commands appropriately. He is weak. He is known to have COPD, previous bypass, hypertension and hyperlipidemia and peripheral vascular disease. He is also known to have CHF. He does have a remote history of DVT and pulmonary embolism. He remains in the ICU for now. He got transferred to the ICU yesterday because of ongoing difficulties with shortness of breath and hypoxemia. His echocardiogram from 2018 was essentially within normal limits and he had a normal ejection fraction. 10/16/2020, Rayo is on 60 L of oxygen along with an FiO2 of 90% and the patient is on 100% nonrebreather facemask. He is quite comfortable. He takes of his main for feeding purposes. During this time, he desaturates and is relatively asymptomatic while he desaturates. He goes down to the 80s and he recovers. He is not tachypneic. He is resting comfortably in bed. In terms of treatment, the patient remains on IV Solu Medrol 60 mg every 6 hours. He is on long-term anticoagulation with Xarelto. His chest x-ray from today is reviewed and is showing some limited improvement in the bilateral interstitial infiltrates seen earlier. In terms of his inflammatory markers, his LDH from yesterday and today has not been checked. His last LDH level was on 10/14/2020 was 1797. His CRP level has dropped down to 16.3. His d-dimer level is at 4.08. As mentioned, the patient is on anticoagulation and he is on Xarelto. He is also on Lasix and he is receiving Lasix 40 mg IV every 24 hours. Neck fluid balance over the past 24 hours has been -2.2 L and is responding nicely to diuretics and his weight is declined. No other significant issues. No altered mentation. No agitation. No confusion. No nausea. No vomiting. No diarrhea. No abdominal pain. No chest pain. He is known to have CAD, previous bypass, hypertension and hyperlipidemia and peripheral vascular disease. He also has history of DVT and pulmonary embolism remains on anticoagulation. 10/17/2020, the patient is on high flow oxygen at 60 L along with FiO2 of 90%. Chest x-ray showing infiltrates mainly on the left compared to the right. Lung volumes are essentially small. No major interval change compared to yesterday, the right lung is obviously better compared to the chest x-ray yesterday. In terms of his clinical status, the patient is feeling that he is less short of breath compared to yesterday. He has occasional cough. No chest pain. He is able to get rid of his 100% nonrebreather facemask and tolerate his diet. He is taking approximately 50% of his diet provided. He remains on IV Solu-Medrol. He remains on long-term articulation with Xarelto. LDH and CRP are being monitored. The levels were quite elevated and the LDH today's 2785 and the CRP is 11.3. The BUN is a 54 with a creatinine of 1.09. Electrolytes are normal, d-dimer is at 6.88, and the CBC showing a white cell count of 15.8 with a hemoglobin of 13.7. No confusion. No altered mentation. Fluid balance is in order of -2.4 L. He is getting Lasix 40 mg IV every 24 hours. No other significant events overnight A 2020 the patient is being seen for a follow-up. Currently he is on a combination of high flow oxygen 6 L with an FiO2 of 90% and the same time the patient is on a nonrebreather facemask 100%. Pulse ox is currently ranging between 80% up to 88% and it fluctuates. Overnight, he became slightly more restless and agitated. He pulled on his masks and he became briefly hypoxic and had to be placed again. As stated, his overall respiratory status quite borderline. He is a case of Covid 19 related pneumonia. On IV Solu-Medrol 60 mg every 6 hours. In terms of his inflammatory markers today, the patient's LDH level is up to 3174 and his CRP level is also at 5.9. D-dimer is at 11.45. He is on anticoagulation and is receiving Xarelto on a daily basis . His chest x- ray is showing limited by system place, change compared to yesterday. On examination, he has adequate air entry bilaterally. His fluid balance over the past 24 hours has been in the order of -2.4 L and the patient is diuresing adequately. His body weight is also on the decline. His blood work today shows a BUN of 54 with a creatinine of 1.09 and the sodium level is at 139. His white cell count 15.8 with hemoglobin 13.7 and a adequate platelet count of 239. No other significant events otherwise for now. Active issue remains is ongoing respiratory insufficiency and high oxygen requirements. The patient is seen today 10/19/2020 in follow-up in the intensive care unit. He is currently sitting up in bed. Awake and alert in no acute distress. He is still requiring airflow high flow oxygen at 15 L/m and 90% FiO2 along with a nonrebreather mask to maintain O2 saturations in the high 80s low 90s. He did receive Tocilizumab. He is currently on Solu-Medrol 60 mg every 6 hours, bronchodilators. Anticoagulated with Xarelto. Receiving IV diuretics. Remains in a negative balance. Chest x-ray continues to show bilateral patchy infiltrates. No evidence of pneumothorax. White count 19.1. Hemoglobin 14.1. D-dimer 11.6. Sodium 137. Potassium 4.4. Creatinine 1.0. LDH 2962. C- reactive protein 5.4. The patient is seen today 10/20/2020 in follow-up in the intensive care unit. He is currently sitting up in bed. Awake and alert in no acute distress. He is still very weak and fatigued. He has very little reserve. Any little movement decreases his oxygen saturations. He is currently on AirVo high flow oxygen at 60 L and 90% FiO2 along with a nonrebreather mask. He's been on IV Solu-Medrol 60 every 6, Xarelto, bronchodilators. Received tocilizumab. Chest x-ray continues to show bilateral interstitial infiltrates with trace effusions. He remains on IV diuretics.. Plan to add Zosyn. Pro-calcitonin pending. White count up to 21.3. Hemoglobin 14.3. Sodium 136. Potassium 4.5. Creatinine 1.07. C-reactive protein less than 5.0. The patient is seen today 10/21/2020 in follow-up in the intensive care unit. He is currently awake and alert in no acute distress. Resting fairly comfortably in bed. Still quite fatigued and weak. Slightly better today compared to yesterday. Remains on AirVo high flow oxygen at 60 L and 90% FiO2 and a nonrebreather mask to maintain O2 saturation in the low to mid 80s. He's been afebrile. White count 27.3. Hemoglobin 15.0. D-dimer 9.89. Sodium 138. Potassium 4.6. Creatinine 1.11. LDH 2774. C-reactive protein less than 5.0. He's been on IV Solu-Medrol 60 every 6, Xarelto, bronchodilators. Received tocilizumab. Chest x-ray shows some worsening left lung infiltrate. Bibasilar patchy infiltrates. He was initiated on Zosyn. Procalcitonin 0.09. He remains on daily IV Lasix. Currently in a negative balance. Patient was reevaluated today on 10/22/2020, remains in the ICU, looks frail and chronically ill, looks weak, remains on high flow oxygen via airvo he is on 80% which was increased earlier to 90% and he is also on 60 L flow. After evaluating the patient today, I transitioned the patient to BiPAP, 100% FiO2 with IPAP of 14 EPAP of 16. Chest x-ray continues to show bilateral interstitial infiltrates, not much of a change in the last few days. ABG earlier on 80% FiO2 showed a pO2 of 45 pCO2 of 35 pH of 7.47. Clinically, the patient is comfortable, does not seem to be in distress, and I am not planning to proceed to intubation and mechanical ventilation at least not at this point. However if his condition gets clinically worse, would definitely recommend intubation and mechanical ventilation. Basic metabolic profile today is relatively normal BUN is 64 creatinine 1.17. His inflammatory markers remained relatively elevated. LDH is 2416, C-reactive protein is 5.1 WBC count is 22.7 hemoglobin is 14.3. Patient remains on Solu-Medrol, Xarelto, bronchodilators, and he received actemra. He also remains on Zosyn empirically. Patient was reevaluated today on 10/23/2020, patient remains remains on BiPAP, with IPAP of 14 EPAP of 6, 60% FiO2. Remains on Xarelto, his overall clinical status is marginal at best. Patient had an episode of confusion yesterday as he went to the bathroom, and he pulled his PICC line, a right femoral line was placed by Dr. Ramos shortly after. Patient is generally weak, lethargic, but arousable, follows simple instructions, and he tells me that he feels fine ABC showed leukocytosis with WBC of 24.3 hemoglobin is 14.7 and at rest are normal BUN is 73 creatinine 1.34. Liver enzymes are relatively elevated. Chest x-ray continues to show bilateral interstitial opacities with a small tiny trace of right-sided pleural effusion Reevaluated today , patient is basically about the same. Remains on BiPAP with the same settings as above, FiO2 was cut down to 55%. He is on IPAP of 14 and EPAP of 6. Remains on the Covid 19 cocktails. No major change in the last 24 hours Liver enzymes remain borderline elevated. D-dimer is 5.49. Electrolytes are normal except for elevated sodium and chloride. BUN is 75 creatinine is 1.28. W a count is 21.6 hemoglobin is 14.3. The patient is seen today 10/25/2020 in follow-up in the intensive care unit. He remains on BiPAP 14/6 and 55% FiO2. He is somewhat more obtunded today. Difficult to arouse. But able to wake up enough to take his medications. His knees are somewhat mottled. He is maintaining O2 saturations in the low 90s. He has 0.9 normal saline at 50 MLS per hour. Remains on IV Solu-Medrol, bronchodilators, Xarelto. White count 20.7. Hemoglobin 13.9. Lymphocytes 0.2. Sodium 157. Potassium 4.4. Creatinine 1.51. Objective - Vital Signs Vital signs: Vital Signs Temp 99.3 F 10/25/20 08:00 Pulse 96 10/25/20 11:00 Resp 25 H 10/25/20 11:00 BP 156/90 10/24/20 00:00 Pulse Ox 93 L 10/25/20 11:00 Intake & Output 10/24/20 10/25/20 10/25/20 18:59 06:59 18:59 Intake Total 391 179 384 Output Total 1245 675 365 Balance -854 -496 19 Weight 103.4 kg Intake: IV 341 179 384 Dextrose 5% in Water 1, 300 000 ml @ 150 mls/hr IV . Q6H40M FRANCES Rx#:[id number] KVO 80 140 75 Piperacillin-Tazobactam 3 125 .375 gm In Sodium Chloride 0.9% 100 ml @ 25 mls/hr IVPB Q8HR FRANCES Rx# :[id number] levETIRAcetam IV 500 mg 100 In Sodium Chloride 0.9% 100 ml @ 400 mls/hr IVPB Q12HR FRANCES Rx#:[id number] pressure bag NS 36 39 9 Oral 50 Output: Urine 1245 675 365 Other: Voiding Method Indwelling Catheter Indwelling Catheter Indwelling Catheter ABP, PAP, CO, CI - Last Documented Arterial Blood Pressure 113/73 - Exam GENERAL EXAM: Drowsy, arousable, pleasant 70-year-old gentleman, on BiPAP 14/6 and 55% FiO2, comfortable in no apparent distress. HEAD: Normocephalic. EYES: Normal reaction of pupils, equal size. NOSE: Clear with pink turbinates. THROAT: No erythema or exudates. NECK: No masses, no JVD. CHEST: No chest wall deformity. LUNGS: Equal air entry with few scattered rhonchi, crackles in the bases. CVS: S1 and S2 normal with no audible murmur, regular rhythm. ABDOMEN: No hepatosplenomegaly, normal bowel sounds, no guarding or rigidity. SPINE: No scoliosis or deformity SKIN: No rashes CENTRAL NERVOUS SYSTEM: No focal deficits, tone is normal in all 4 extremities. EXTREMITIES: There is no peripheral edema. No clubbing, no cyanosis. Peripheral pulses are intact. - Labs CBC & Chem 7: 10/25/20 05:10 10/25/20 05:10 Labs: Abnormal Lab Results - Last 24 Hours (Table) 10/24/20 10/24/20 10/24/20 Range/Units 14:07 19:19 20:47 WBC (3.8-10.6) k/uL Neutrophils # (1.3-7.7) k/uL Lymphocytes # (1.0-4.8) k/uL Sodium (137-145) mmol/L Chloride (98-107) mmol/L BUN (9-20) mg/dL Creatinine (0.66-1.25) mg/dL Glucose (74-99) mg/dL POC Glucose (mg/dL) 151 H 154 H 165 H (75-99) mg/dL Magnesium (1.6-2.3) mg/dL Total Bilirubin (0.2-1.3) mg/dL AST (17-59) U/L ALT (4-49) U/L Total Protein (6.3-8.2) g/dL Albumin (3.5-5.0) g/dL 10/25/20 10/25/20 10/25/20 Range/Units 05:10 05:10 05:10 WBC 22.7 H (3.8-10.6) k/uL Neutrophils # 21.7 H (1.3-7.7) k/uL Lymphocytes # 0.2 L (1.0-4.8) k/uL Sodium 157 H (137-145) mmol/L Chloride 124 H (98-107) mmol/L BUN 84 H (9-20) mg/dL Creatinine 1.51 H (0.66-1.25) mg/dL Glucose 178 H (74-99) mg/dL POC Glucose (mg/dL) (75-99) mg/dL Magnesium 3.5 H (1.6-2.3) mg/dL Total Bilirubin 3.7 H (0.2-1.3) mg/dL AST 145 H (17-59) U/L ALT 419 H (4-49) U/L Total Protein 6.1 L (6.3-8.2) g/dL Albumin 3.2 L (3.5-5.0) g/dL 10/25/20 Range/Units 06:26 WBC (3.8-10.6) k/uL Neutrophils # (1.3-7.7) k/uL Lymphocytes # (1.0-4.8) k/uL Sodium (137-145) mmol/L Chloride (98-107) mmol/L BUN (9-20) mg/dL Creatinine (0.66-1.25) mg/dL Glucose (74-99) mg/dL POC Glucose (mg/dL) 190 H (75-99) mg/dL Magnesium (1.6-2.3) mg/dL Total Bilirubin (0.2-1.3) mg/dL AST (17-59) U/L ALT (4-49) U/L Total Protein (6.3-8.2) g/dL Albumin (3.5-5.0) g/dL Assessment and Plan Assessment: 1 Acute on chronic hypoxic respiratory failure secondary to acute CoVID 19 pneumonia and remains BiPAP 14/6 and 55% FiO2. He received Tocilizumab 2 Elevated inflammatory markers secondary to above 3 Acute on chronic renal failure 4 Chronic hypoxic respiratory failure secondary to chronic obstructive pulmonary disease on home O2 at 2 L/m 5 Former smoker 6 History of coronary disease 7 Hyperlipidemia 8 Hypertension 9 History of PE/DVT anticoagulate with Xarelto 10 History of depression 11 Obstructive sleep apnea utilizing CPAP 12 History of peripheral vascular disease 13 BPH Plan: The patient was seen and evaluated by Dr. Manley Chest x-ray and labs reviewed Change IV fluids to D5W at 150 MLS per hour Request another PICC line be placed tomorrow Continue IV Solu-Medrol 60 mg every 6 hours. Already received Tocilizumab x2 . Anticoagulated with Xarelto Continue Zosyn Condition guarded We will continue to follow I, the cosigning physician, performed a history & physical examination of the patient. Lungs sounds with few scattered rhonchi, crackles in the bilateral posterior bases. Maintaining good O2 saturations in the 90s on BiPAP 14/6 and 55 % FiO2. I discussed the assessment and plan of care with my nurse practitioner, Kandis Pepe. I attest to the above note as dictated by her.
[2020-10-25 13:07] LABS: Glucose,Whole Blood 229 mg/dL (75-99)
[2020-10-25 17:49] LABS: Glucose,Whole Blood 214 mg/dL (75-99)
[2020-10-25 20:37] LABS: Glucose,Whole Blood 168 mg/dL (75-99)
[2020-10-25] MEDS: MIRTAZAPINE 15 MG TAB PO SCH (20:52)
[2020-10-25] MEDS: NON FORMULARY DRUG (Rosuvastatin 20 MG Tablet) PO SCH (23:42)
[2020-10-26] MEDS: PIPERACILLIN-TAZOBACTAM 3.375 GM in SODIUM CHLORIDE 0.9% 100 ML IVPB SCH (00:13)
[2020-10-26] MEDS: DEXTROSE 5% IN WATER 1,000 ML IV SCH ×4 (03:55→21:30)
[2020-10-26 05:51] LABS: HCT 34.8 % (39.0-53.0); HGB 11.9 gm/dL (13.0-17.5); MCH 33.3 pg (25.0-35.0); MCHC 34.3 g/dL (31.0-37.0); MCV 97.2 fL (80.0-100.0); Mean Platelet Volume 9.5; Platelet Count 138 k/uL (150-450); RBC 3.58 m/uL (4.30-5.90); RDW 14.8 % (11.5-15.5)
[2020-10-26 06:15] LABS: Albumin 2.9 g/dL (3.5-5.0); Calcium 8.5 mg/dL (8.4-10.2); Potassium 4.2 mmol/L (3.5-5.1); Total Bilirubin 3.8 mg/dL (0.2-1.3); Total Protein 5.5 g/dL (6.3-8.2)
[2020-10-26 06:24] LABS: D-Dimer 3.74 mg/L FEU (<0.60); INR 1.4 (<1.2)
[2020-10-26 06:38] LABS: Partial Thromboplastin Time 20.7 sec (22.0-30.0)
[2020-10-26 06:49] LABS: Glucose,Whole Blood 124 mg/dL (75-99)
[2020-10-26] MEDS: INSULIN ASPART (NovoLOG) 100 UNIT/ML VIAL SQ SCH ×4 (07:08→20:34)
[2020-10-26 07:44] LABS: Erythrocyte Sedimentation Rate 5 mm/hr (0-15)
--- NOTE | 2020-10-26 08:09 | XR ---
EXAMINATION TYPE: XR chest 1V portable DATE OF EXAM: 10/26/2020 Comparison: 10/25/2020 Clinical History: 70-year-old male Pneumonia Findings: Partially visualized bilateral shoulder arthroplasties. Vascular stent projecting at the right apex. Heart normal size. Diffuse interstitial densities persist. Some patchy densities in the lung bases al so redemonstrated. A 4.2 cm thin-walled cavitary lesion or air cyst has developed now in the right mi d to lower lung. Impression: 1. Persistent interstitial densities and some patchy bibasilar infiltrates. 2. A thin-walled right mid to lower lung cavitary lesion or air cyst has recently developed, seen sub tly for the first time on 10/24/2020. Consider atypical infectious etiology.
[2020-10-26] MEDS: TIOTROPIUM 2.5 MCG INHALER INHALATION SCH (08:39)
[2020-10-26] MEDS: ALBUTEROL HFA INHALER INHALATION PRN ×2 (08:39→20:30)
[2020-10-26] MEDS: SYMBICORT 160-4.5 MCG INHALER INHALATION SCH ×2 (08:39→20:30)
[2020-10-26] MEDS: NEBIVOLOL 5 MG TAB PO SCH (09:04)
[2020-10-26] MEDS: CHOLECALCIFEROL 25 MCG (1000 IU) TABLET PO SCH (09:04)
[2020-10-26] MEDS: ASPIRIN 81 MG PO SCH (09:04)
[2020-10-26] MEDS: VENLAFAXINE HCL 75 MG TAB PO SCH ×2 (09:04→20:11)
[2020-10-26] MEDS: guaiFENesin 600 MG TABLET.ER PO SCH (09:04)
[2020-10-26] MEDS: RIVAROXABAN 20 MG TAB PO SCH (09:05)
[2020-10-26] MEDS: MULTIVITAMINS, THERA 1 EACH TAB PO SCH (09:05)
[2020-10-26] MEDS: METOPROLOL SUCCINATE (ER) 25 MG TAB.ER.24H PO SCH (09:05)
[2020-10-26] MEDS: NON FORMULARY DRUG (Atomoxetine Hcl [Strattera] 40 MG Capsule) PO SCH (09:09)
[2020-10-26] MEDS: NON FORMULARY DRUG (Atomoxetine Hcl [Strattera] 60 MG Capsule) PO SCH (09:09)
[2020-10-26 11:27] LABS: Ferritin 2227.7 ng/mL (22.0-322.0)
[2020-10-26 11:30] LABS: Glucose,Whole Blood 134 mg/dL (75-99)
--- NOTE | 2020-10-26 11:39 | P.PN ---
Subjective Progress Note Date: 10/26/20 HISTORY OF PRESENT ILLNESS This is a 70 years old male patient of Dr. Polo with past medical history of pulmonary embolism diagnosed in [place] 2 years ago, history of lower extremity DVT, coronary artery disease no stent, history of heart failure unknown if systolic or diastolic, COPD, hyperlipidemia, hypertension, osteoarthritis, prostate cancer, skin disorder,'s obstructive sleep apnea on CPAP, subclavian steal syndrome with stent placement, history of recent penile implant on 07/27/2016. Patient has chronic shortness of breath that has been going on for the past 2 years since the diagnosis of pulmonary embolism with O2 requirements at 2 L nasal cannula Patient is currently on maintenance dose of xarelto at 10 mg daily. He presents emergency room secondary to worsening dyspnea, x 7 days without any medical intervention prior to this, He was seen in the Emergency room for the shortness of breath, worsening dyspnea and exertion, and was found to be SARS cov 2 positive. Chest x-ray, shows bilateral pulmonary interstitial infiltrates compared to old exam, with a similar atelectasis. Poor inspiration, no hilar masses laboratory shows hemoglobin of 12.9, WBC count of 7, creatinine of 1.47, iron of 1.2, glucose 120 CRP 88, pro-calcitonin slightly elevated 0.22. Patient denies any chronic prednisone exposure, Consult were made with pulmonary, Dr. Ramos, pulse oximetry would be 9 PT 1697 at 2-3 L nasal cannula, blood pressure of 129/66. 10/11: Patient was seen for follow-up today, he is a little bit tachypnea, very small amount of labored breathing only on exertion, no conversational dyspnea, O2 at 2 L, sats 95%, no clearance from pulmonary medicine are stable were rounding today, no cough, no pleurisy, no chest pain no palpitations, creatinine at 1.5 today, electrolytes are normal, wbc of 4.7, LDH of 784, ferritin 533 patient is on IV dexamethasone maintained on Xarelto, no new treatment from pulmonary critical care today, currently stable 10/12: A-Team is called during the night due to hypoxia and patient was started on AirVo. Respiratory rate is been in the 40s, heart rate 74, afebrile, pulse ox 96%. Chest x-ray from yesterday revealed patchy. Hilar and basilar infiltrates persist and have progressed slightly in the interval. Repeat blood work reveals WBC 6.8, hemoglobin 12.4, platelet count 135. LDH 1228. C- reactive protein 85.1. The patient has developed increasing difficulty with breathing. He denies having any chest pain. He states he could not sleep through the night. 10/13: Patient states that his breathing status is about the same as yesterday or little bit more difficult. He denies any coughing up blood. He denies any abdominal pain, nausea or vomiting, no diarrhea. Patient remains on Arava with pulse ox of 88-90%. Afebrile, heart rate 69, respiratory rate 40, blood pressure 137/76. Patient is status post 2 doses of Tocilizumab. patient is followed closely by pulmonary medicine. 10/14: Patient is currently on AirVo and nonrebreather but states that he is feeling better today and that his breathing is better. He has been afebrile, heart rate 72, respiratory rate 36, blood pressure 130/70, pulse ox 90%. He denies having abdominal pain, nausea vomiting or diarrhea. He remains on Solu- Medrol 60 mg IV every 6 hours. 10/15: Patient was transferred to the ICU per Dr. Wright. He is currently on AirVo only at time of evaluation and is eating his breakfast. Patient has been maintained on Arava plus nonrebreather. His breathing status appears to be improved from yesterday. His pulse ox is 88%. Afebrile, heart rate 76, respiratory rate 25, blood pressure 131/81. Repeat chest x-ray reveals stable chest. Repeat blood work reveals normal CBC. D-dimer 1.85. C-reactive protein 29. LDH is pending. Ferritin level 1340.6. Patient is scheduled for PICC line insertion today. Lasix 40 mg IV push ordered today by pulmonary medicine. Patient is continued on Solu-Medrol 60 mg every 6 hours. Patient not receiving any antibiotics at this time. 10/16: Patient remains in the intensive care unit. He was off nonrebreather and only on AirVo yesterday most of the day. Now he is on both AirVo and nonrebreather and taking the nonrebreather on and off as he needs it. He is eating 50% of his meals. He has been afebrile, heart rate 69, respiratory rate 34, blood pressure 142/80, pulse ox 88% on both AirVo and nonrebreather. Repeat blood work reveals W BC 13.5, hemoglobin 13.6, platelet count 247. Electrolytes normal. BUN 52 and creatinine 1.2. Blood sugars running between 120 975. Total bilirubin 1.0, AST 111, ALT 137, alkaline phosphatase 80. C-reactive p rotein 16.3, CK 65. Repeat chest x-ray reveals bilateral lower lobe infiltrate and small effusion with coarsened interstitium correlate for venous congestion versus interstitial pneumonia. Patient surprisingly feels his breathing is stable. He has no new complaints. 10/17: Patient remains in intensive care unit. He has been off the nonrebreather for the past hour and a half with only AirVo with pulse ox in the high 80s. He has been afebrile, heart rate in the 70s, blood pressure 142/86, respiratory rate in 30s. Patient verbalizes that his breathing status is improving. Repeat blood work reveals WBC 15.8, hemoglobin 13.7, platelet count 239. Electrolytes normal. BUN 54 and creatinine 1.09. Blood sugars running between 120 765. Total bilirubin 1.5, AST 195, ALT 304, alkaline phosphatase 92, LDH 2785. CK 51, C-reactive protein 11.3. Repeat chest x-ray reveals mild interval pro gression in the lung infiltrates within the right lung. Left lung is stable. No change in small bilateral pleural effusions. 10/18: Patient remains in intensive care unit. He is seen today on AirVo and nonrebreather and pulse ox has been marginal in the low to mid 80s. Heart rate is in the 70s, respiratory rate in the 30s, blood pressure 136/87. He has been afebrile. Repeat blood work reveals WBC 18.4. Electrolytes normal, BUN 59 and creatinine 1.03. Blood sugars running between 126 and 166. Ferritin level 1817. D-dimer 11.45. Total bilirubin 1.7, AST 128, ALT 309, alkaline phosphat ase 121. LDH 3174. CK 98, C-reactive protein 5.9. Repeat chest x-ray reveals left perihilar and basilar infiltrates persist 10/19: Patient's breathing status remains about the same. He has been afebrile, heart rate 70s, respiratory rate 29, blood pressure 143/87. Pulse ox is running mid to high 80s with nonrebreather and high flow nasal cannula. WBC 19.1, hemoglobin 14.1, platelet count 247. D-dimer 11.64. Electrolytes normal. BUN 55 and creatinine 1.05. Blood sugars running between 124 and 197. Ferritin 1583. Total bilirubin 1.4, AST 99, ALT 266, alk phos was 123. LDH 2962. C-re active protein 5.4. Repeat chest x-ray shows no pneumothorax. Interstitial and patchy bilateral infiltrates. 10/20: Patient remains in the intensive care unit and he is currently on nonrebreather and high flow nasal cannula. Pulse ox is running 86-91%. He has been afebrile, heart rate in the 70s, respiratory rate 29, blood pressure 145/81. WBC 21.3. Sodium 136, BUN 57 and creatinine 1.07. Blood sugars running between 100 3459. Ferritin level 1616. Total bilirubin 1.8, AST 87, ALT 262, alkaline phosphatase 131. C-reactive protein normal at less than 5. Repeat chest x-ray reveals relatively stable with interstitial infiltrates and possible trace effusions. 10/21:patient remains in the intensive care unit. He is on Arava [place] and nonrebreather with pulse ox in the mid 80s. Patient has been afebrile.Heart rate in the 70s and 60s, respiratory rate in the mid to high 20s, pulse ox a nywhere between 81-89%, blood pressure 119/81. WBC 27.3, hemoglobin 15, platelet count 202. Electrolytes normal, BUN 61 and creatinine 1.11. Blood sugars running between 141 and 158. Ferritin level 1639, total bilirubin 2.0, AST 104, ALT 296, alkaline phosphatase 136. LDH 2774. C-reactive protein less than 5. Patient is continued on Zosyn, IV Solu-Medrol heart rate in the 60s and 70s, respiratory rate in the 20s n and IV Lasix. 10/22: Patient remains in the intensive care unit currently on BiPAP. Patient had some increased anxiety this morning was given Xanax and was lethargic following with desats and subsequently placed on BiPAP. He's been running high 90s for pulse ox. He's been afebrile, heart rate in the 70s, respiratory rate in the 20s to 30s, blood pressure 125/91. Repeat blood work reveals W BC 22.7, hemoglobin 14.3, platelet count 173. Electrolytes are normal except for CO2 of 31, BUN 64 and creatinine 1.17. Ferritin 1475.9. Total bilirubin 2.3, AST 88, ALT 281, alkaline phosphatase 133. LDH 2416. Blood sugars running between 144 and 158. Repeat chest x-ray reveals mild diffuse increased lung opacities. Patient is continued on Zosyn, Solu-Medrol. Patient may require intubation. 10/23: The patient remains on BiPAP with pulse ox between 86 and 92 with FiO2 of 60%, respiratory rate anywhere between 28 and 40, heart rate in the 80s, afebrile. Patient is getting tired and fatigued. He actually pulled his PICC line out and arterial line and femoral triple-lumen catheter was placed. Repeat chest x-ray reveals similar diffuse bilateral interstitial opacities. Possible trace right effusion. Patient's mental status is stable today. He did have some mild confusion and lethargy yesterday. WBC 24.3. BUN 73 and creatinine 1.34. Blood sugars running between 140 154. Total bilirubin 3.1, AST 117, ALT 329, alkaline phosphatase 137. 5: Patient remains in the intensive care unit on BiPAP. Pulse ox is 89-93% on BiPAP of 55% FiO2. Respiratory rate in the 30s, afebrile, heart rate in the 80s and 90s, blood pressure 101/69. Repeat blood work reveals W BC 23.0, hemoglobin 11.9, platelet count 138. INR is 1.4. D-dimer 3.7 following her. Sodium 150, potassium 4.2, chloride 118, CO2 26, BUN 95 and creatinine 1.94. Blood sugars running between 124 and 214. Total bilirubin 3.8, AST 132, ALT 407, alkaline phosphatase 83. LDH 2059. CK 272. Patient's IV fluids were switched to D5 yesterday at 150 mL per hour and IV Lasix was discontinued with improvement of his sodium. Patient pulled out his central line. Prognosis is guarded. REVIEW OF SYSTEMS Constitutional: Denies fever, no chills, no night sweats. Generalized weakness, reports fatigue. EENT: No headache. No dizziness. No nasal drainage or congestion. No epistaxis. No sore throat. Lungs: Reports shortness of breathworsening, reports cough, no sputum production. No wheezing. reports dyspnea with exertion. Cardiovascular: No chest pain, no lower extremity edema. No palpitations. No paroxysmal nocturnal dyspnea. No orthopnea. No lightheadedness or dizziness. No syncopal episodes. Abdominal: No abdominal pain. No nausea, vomiting. No diarrhea. No constipation. No bloody or tarry stools reports loss of appetite. Genitourinary: No dysuria, increased frequency, urgency. No urinary retention. Musculoskeletal: No myalgias. Reports muscle weakness, no gait dysfunction, no frequent falls. No back pain. No neck pain. Integumentary: No wounds, no lesions. No rash or pruritus. No unusual bruising. High flow nasal cannula Neurologic: No aphasia. No facial droop. No change in mentation. No head injury. No headache. Psychiatric: No depression. No anxiety. No mood swings. Reports insomnia. Endocrine: Noted abnormal blood sugars. No weight change. PHYSICAL EXAMINATION Gen: This is a 70-year-old male. He is resting in ICU bed and appears to be fatigued. Patient is on BiPAP. HEENT: Head is atraumatic, normocephalic. Pupils equal, round. Sclerae is anicteric. NECK: Supple. No JVD. No lymphadenopathy. No thyromegaly. LUNGS: Few scattered rhonchi and scattered expiratory wheezing. Mild intercostal retractions. HEART: Regular rate and rhythm. No murmur. ABDOMEN: Soft. Bowel sounds are present. No masses. No tenderness. EXTREMITIES: No pedal edema. No calf tenderness. Dorsalis pedis palpable bilaterally. NEUROLOGICAL: Patient is awake, alert and oriented x3. Cranial nerves 2 through 12 are grossly intact. ASSESSMENT AND PLAN 1. Acute SARS COV2, infection with acute hypoxic respiratory failure. Continue current management per pulmonary medicine. Continue Solu-Medrol 40 mg every 12 hours, albuterol inhaler as needed, Symbicort inhaler twice daily. Continue vitamin D. Patient is status post 2 doses of Tocilizumab. Continue Incentive spirometry. Patient may require intubation. Monitor inflammatory markers. 2. Thrombocytopenia secondary to COVID 19 infection. Continue to monitor. 3. Acute kidney injury secondary to dehydration, poor oral intake. Continue to monitor renal function. 4. Chronic anticoagulation, secondary to history of DVT. Continue Xarelto. 5. History of DVT of the right leg in December 2013, resolved on Lasix 40 mg daily, 6. COPD. Continue albuterol- Atrovent as needed . Continue Symbicort twice daily 7. Hyperlipidemia. Continue Crestor daily. 8. Subclavian steal syndrome status post stent in the right carotid. 9. Benign prostatic hypertrophy. Monitor for urinary retention. Continue Flomax daily 10. History of coronary artery disease with previous myocardial infarction. 11. Obstructive Sleep apnea. Patient to continue his own CPAP machine. 12. Gastroesophageal reflux disease and gastric intestinal prophylaxis. Continue Nexium or equivalent. 13. Hypertension. Continue bystolic 10 mg daily . Hold aldactone. 14. Depression. Continue Cymbalta 150 mg twice daily. 15. History of ADHD. Strattera on hold. 16. Chronic kidney disease stage III, stable 17. Chronic systolic heart failure and ischemic cardiomyopathy with prior ejection fraction 40%. Continue aspirin 81 mg metoprolol CODE STATUS full code Prognosis guarded. DISCHARGE PLAN TBD. Impression and plan of care have been directed as dictated by the signing physic ian. Nena Frausto nurse practitioner acting as scribe for signing physician. Objective - Vital Signs Vital signs: Vital Signs Temp 98.5 F 10/26/20 00:00 Pulse 81 10/26/20 07:00 Resp 22 10/26/20 07:00 BP 121/76 10/26/20 07:00 Pulse Ox 93 L 10/26/20 07:00 Intake & Output 10/25/20 10/26/20 10/26/20 18:59 06:59 18:59 Intake Total 1761 1683 3 Output Total 905 540 35 Balance 856 1143 -32 Intake: IV 1761 1683 3 Dextrose 5% in Water 1, 1650 1350 000 ml @ 150 mls/hr IV . Q6H40M [facility] Rx#:[id number] KVO 75 Piperacillin-Tazobactam 3 200 .375 gm In Sodium Chloride 0.9% 100 ml @ 25 mls/hr IVPB Q8HR [facility] Rx# :[id number] levETIRAcetam IV 500 mg 100 In Sodium Chloride 0.9% 100 ml @ 400 mls/hr IVPB Q12HR [facility] Rx#:[id number] pressure bag NS 36 33 3 Output: Urine 905 540 35 Other: Voiding Method Indwelling Catheter Indwelling Catheter ABP, PAP, CO, CI - Last Documented Arterial Blood Pressure 114/74 - Labs CBC & Chem 7: 10/26/20 05:30 10/26/20 05:30 Labs: Abnormal Lab Results - Last 24 Hours (Table) 10/25/20 10/25/20 10/25/20 Range/Units 05:10 13:06 17:46 WBC (3.8-10.6) k/uL RBC (4.30-5.90) m/uL Hgb (13.0-17.5) gm/dL Hct (39.0-53.0) % Plt Count (150-450) k/uL PT (9.0-12.0) sec INR (<1.2) APTT (22.0-30.0) sec Fibrinogen (200-500) mg/dL D-Dimer (<0.60) mg/L FEU Sodium (137-145) mmol/L Chloride (98-107) mmol/L BUN (9-20) mg/dL Creatinine (0.66-1.25) mg/dL Glucose (74-99) mg/dL POC Glucose (mg/dL) 229 H 214 H (75-99) mg/dL Magnesium 3.5 H (1.6-2.3) mg/dL Total Bilirubin (0.2-1.3) mg/dL AST (17-59) U/L ALT (4-49) U/L Lactate Dehydrogenase (313-618) U/L Creatine Kinase (55-170) U/L Total Protein (6.3-8.2) g/dL Albumin (3.5-5.0) g/dL 10/25/20 10/26/20 10/26/20 Range/Units 20:35 05:30 05:30 WBC 23.0 H (3.8-10.6) k/uL RBC 3.58 L (4.30-5.90) m/uL Hgb 11.9 L (13.0-17.5) gm/dL Hct 34.8 L (39.0-53.0) % Plt Count 138 L (150-450) k/uL PT 14.0 H (9.0-12.0) sec INR 1.4 H (<1.2) APTT 20.7 L (22.0-30.0) sec Fibrinogen 86 L (200-500) mg/dL D-Dimer 3.74 H (<0.60) mg/L FEU Sodium (137-145) mmol/L Chloride (98-107) mmol/L BUN (9-20) mg/dL Creatinine (0.66-1.25) mg/dL Glucose (74-99) mg/dL POC Glucose (mg/dL) 168 H (75-99) mg/dL Magnesium (1.6-2.3) mg/dL Total Bilirubin (0.2-1.3) mg/dL AST (17-59) U/L ALT (4-49) U/L Lactate Dehydrogenase (313-618) U/L Creatine Kinase (55-170) U/L Total Protein (6.3-8.2) g/dL Albumin (3.5-5.0) g/dL 10/26/20 10/26/20 Range/Units 05:30 06:46 WBC (3.8-10.6) k/uL RBC (4.30-5.90) m/uL Hgb (13.0-17.5) gm/dL Hct (39.0-53.0) % Plt Count (150-450) k/uL PT (9.0-12.0) sec INR (<1.2) APTT (22.0-30.0) sec Fibrinogen (200-500) mg/dL D-Dimer (<0.60) mg/L FEU Sodium 150 H (137-145) mmol/L Chloride 118 H (98-107) mmol/L BUN 95 H (9-20) mg/dL Creatinine 1.94 H (0.66-1.25) mg/dL Glucose 156 H (74-99) mg/dL POC Glucose (mg/dL) 124 H (75-99) mg/dL Magnesium (1.6-2.3) mg/dL Total Bilirubin 3.8 H (0.2-1.3) mg/dL AST 132 H (17-59) U/L ALT 407 H (4-49) U/L Lactate Dehydrogenase 2059 H (313-618) U/L Creatine Kinase 272 H (55-170) U/L Total Protein 5.5 L (6.3-8.2) g/dL Albumin 2.9 L (3.5-5.0) g/dL
[2020-10-26] MEDS: levETIRAcetam IV 500 MG in SODIUM CHLORIDE 0.9% 100 ML IVPB SCH ×2 (11:48→20:12)
[2020-10-26] MEDS: PANTOPRAZOLE 40 MG/10 ML VIAL IVP SCH (11:48)
[2020-10-26] MEDS: methylPREDNISolone SOD SUCCI 40 MG/ML 1 ML VIAL IV SCH ×2 (11:48→20:12)
[2020-10-26] MEDS ORDERED: LIDOCAINE 1% INJ 10MG/ML (20 ML MDV) SQ ONE (13:08)
--- NOTE | 2020-10-26 13:29 | P.PN ---
Subjective Progress Note Date: 10/26/20 Principal diagnosis: Acute hypoxemic respiratory failure. The patient is seen today 10/20/2020 in follow-up in the intensive care unit. He is currently sitting up in bed. Awake and alert in no acute distress. He is still very weak and fatigued. He has very little reserve. Any little movement decreases his oxygen saturations. He is currently on AirVo high flow oxygen at 60 L and 90% FiO2 along with a nonrebreather mask. He's been on IV Solu-Medrol 60 every 6, Xarelto, bronchodilators. Received tocilizumab. Chest x-ray continues to show bilateral interstitial infiltrates with trace effusions. He remains on IV diuretics.. Plan to add Zosyn. Pro-calcitonin pending. White count up to 21.3. Hemoglobin 14.3. Sodium 136. Potassium 4.5. Creatinine 1.07. C-reactive protein less than 5.0. The patient is seen today 10/21/2020 in follow-up in the intensive care unit. He is currently awake and alert in no acute distress. Resting fairly comfortably in bed. Still quite fatigued and weak. Slightly better today compared to yesterday. Remains on AirVo high flow oxygen at 60 L and 90% FiO2 and a nonrebreather mask to maintain O2 saturation in the low to mid 80s. He's been afebrile. White count 27.3. Hemoglobin 15.0. D-dimer 9.89. Sodium 138. Potassium 4.6. Creatinine 1.11. LDH 2774. C-reactive protein less than 5.0. He's been on IV Solu-Medrol 60 every 6, Xarelto, bronchodilators. Received tocilizumab. Chest x-ray shows some worsening left lung infiltrate. Bibasilar patchy infiltrates. He was initiated on Zosyn. Procalcitonin 0.09. He remains on daily IV Lasix. Currently in a negative balance. Patient was reevaluated today on 10/22/2020, remains in the ICU, looks frail and chronically ill, looks weak, remains on high flow oxygen via airvo he is on 80% which was increased earlier to 90% and he is also on 60 L flow. After evaluat ing the patient today, I transitioned the patient to BiPAP, 100% FiO2 with IPAP of 14 EPAP of 16. Chest x-ray continues to show bilateral interstitial infiltrates, not much of a change in the last few days. ABG earlier on 80% FiO2 showed a pO2 of 45 pCO2 of 35 pH of 7.47. Clinically, the patient is comfortable, does not seem to be in distress, and I am not planning to proceed to intubation and mechanical ventilation at least not at this point. However if his condition gets clinically worse, would definitely recommend intubation and mechanical ventilation. Basic metabolic profile today is relatively normal BUN is 64 creatinine 1.17. His inflammatory markers remained relatively elevated. LDH is 2416, C-reactive protein is 5.1 WBC count is 22.7 hemoglobin is 14.3. Patient remains on Solu-Medrol, Xarelto, bronchodilators, and he received actemra. He also remains on Zosyn empirically. Patient was reevaluated today on 10/23/2020, patient remains remains on BiPAP, with IPAP of 14 EPAP of 6, 60% FiO2. Remains on Xarelto, his overall clinical status is marginal at best. Patient had an episode of confusion yesterday as he went to the bathroom, and he pulled his PICC line, a right femoral line was placed by Dr. Ramos shortly after. Patient is generally weak, lethargic, but arousable, follows simple instructions, and he tells me that he feels fine ABC showed leukocytosis with WBC of 24.3 hemoglobin is 14.7 and at rest are normal BUN is 73 creatinine 1.34. Liver enzymes are relatively elevated. Chest x-ray continues to show bilateral interstitial opacities with a small tiny trace of right-sided pleural effusion Reevaluated today , patient is basically about the same. Remains on BiPAP with the same settings as above, FiO2 was cut down to 55%. He is on IPAP of 14 and EPAP of 6. Remains on the Covid 19 cocktails. No major change in the last 24 hours Liver enzymes remain borderline elevated. D-dimer is 5.49. Electrolytes are normal except for elevated sodium and chloride. BUN is 75 creatinine is 1.28. W a count is 21.6 hemoglobin is 14.3. The patient is seen today 10/25/2020 in follow-up in the intensive care unit. He remains on BiPAP 14/6 and 55% FiO2. He is somewhat more obtunded today. Difficult to arouse. But able to wake up enough to take his medications. His knees are somewhat mottled. He is maintaining O2 saturations in the low 90s. He has 0.9 normal saline at 50 MLS per hour. Remains on IV Solu-Medrol, bronchodilators, Xarelto. White count 20.7. Hemoglobin 13.9. Lymphocytes 0.2. Sodium 157. Potassium 4.4. Creatinine 1.51. Progress note dated 10/24/2020. This is a 71-year-old male who was admitted to the hospital on October 09. He came in with a diagnosis of COVID 19 pneumonia. The patient was transferred to the intensive care unit on October 15. Currently, the patient remains on BiPAP, settings of IPAP 14, EPAP 6, and 55%. The patient's also getting D5W to 150 mL an hour. He did receive 2 doses of TOCI. Unfortunately, the patient has pulled out all his IVs including 2 central lines. A PICC line will be placed today so he can get nutrition. White count 23,000, hemoglobin 11.9, hematocrit 34.8, platelet count 138,000. PT 14, INR 1.4, PTT is 20.7, and d-dimer is 3.74. Sodium is down to 150 from 157, potassium 4.2, chlorides 118, CO2 26, anion gap 6, BUN 95, creatinine 1.94. LDH is 2059. Ferritin is 2227. Chest x-ray continues to show bilateral interstitial patchy infiltrates, and a pneumatocele in the right midlung. Objective - Vital Signs Vital signs: Vital Signs Temp 97.7 F 10/26/20 08:00 Pulse 95 10/26/20 10:00 Resp 31 H 10/26/20 10:00 BP 100/74 10/26/20 10:00 Pulse Ox 93 L 10/26/20 10:00 Intake & Output 10/25/20 10/26/20 10/26/20 18:59 06:59 18:59 Intake Total 1761 1683 18 Output Total 905 540 185 Balance 856 1143 -167 Weight 103.4 kg Intake: IV 176 1683 18 Dextrose 5% in Water 1 1650 1350 000 ml @ 150 mls/hr IV . Q6H40M [facility] Rx#:[id number] KVO 75 Piperacillin-Tazobactam 3 200 .375 gm In Sodium Chloride 0.9% 100 ml @ 25 mls/hr IVPB Q8HR [facility] Rx# :[id number] levETIRAcetam IV 500 mg 100 In Sodium Chloride 0.9% 100 ml @ 400 mls/hr IVPB Q12HR [facility] Rx#:[id number] pressure bag NS 36 33 18 Output: Urine 905 540 185 Other: Voiding Method Indwelling Catheter Indwelling Catheter Indwelling Catheter ABP, PAP, CO, CI - Last Documented Arterial Blood Pressure 101/69 - Exam Confused, BiPAP mask in place. Very lethargic. HEENT examination is grossly unremarkable. BiPAP mask in place. Neck supple. Full range of motion. No adenopathy thyromegaly or neck vein distention. Cardiovascular examination reveals regular rhythm rate. S1-S2 normal. No S3 or S4. No discernible murmur noted. Heart rate 86 bpm. Lungs reveal diffuse bilateral mostly basilar rhonchi and crackles. No wheezes. Breath sounds equal bilaterally. Abdomen soft bowel sounds are heard. No masses or tenderness. Extremities are intact. No cyanosis clubbing or edema. Skin is without rash or lesion. Neurologic examination is brief but nonfocal. - Labs CBC & Chem 7: 10/26/20 05:30 10/26/20 05:30 Labs: Abnormal Lab Results - Last 24 Hours (Table) 10/25/20 10/25/20 10/26/20 Range/Units 17:46 20:35 05:30 WBC 23.0 H (3.8-10.6) k/uL RBC 3.58 L (4.30-5.90) m/uL Hgb 11.9 L (13.0-17.5) gm/dL Hct 34.8 L (39.0-53.0) % Plt Count 138 L (150-450) k/uL PT (9.0-12.0) sec INR (<1.2) APTT (22.0-30.0) sec Fibrinogen (200-500) mg/dL D-Dimer (<0.60) mg/L FEU Sodium (137-145) mmol/L Chloride (98-107) mmol/L BUN (9-20) mg/dL Creatinine (0.66-1.25) mg/dL Glucose (74-99) mg/dL POC Glucose (mg/dL) 214 H 168 H (75-99) mg/dL Ferritin (22.0-322.0) ng/mL Total Bilirubin (0.2-1.3) mg/dL AST (17-59) U/L ALT (4-49) U/L Lactate Dehydrogenase (313-618) U/L Creatine Kinase (55-170) U/L Total Protein (6.3-8.2) g/dL Albumin (3.5-5.0) g/dL 10/26/20 10/26/20 10/26/20 Range/Units 05:30 05:30 06:46 WBC (3.8-10.6) k/uL RBC (4.30-5.90) m/uL Hgb (13.0-17.5) gm/dL Hct (39.0-53.0) % Plt Count (150-450) k/uL PT 14.0 H (9.0-12.0) sec INR 1.4 H (<1.2) APTT 20.7 L (22.0-30.0) sec Fibrinogen 86 L (200-500) mg/dL D-Dimer 3.74 H (<0.60) mg/L FEU Sodium 150 H (137-145) mmol/L Chloride 118 H (98-107) mmol/L BUN 95 H (9-20) mg/dL Creatinine 1.94 H (0.66-1.25) mg/dL Glucose 156 H (74-99) mg/dL POC Glucose (mg/dL) 124 H (75-99) mg/dL Ferritin 2227.7 H (22.0-322.0) ng/mL Total Bilirubin 3.8 H (0.2-1.3) mg/dL AST 132 H (17-59) U/L ALT 407 H (4-49) U/L Lactate Dehydrogenase 2059 H (313-618) U/L Creatine Kinase 272 H (55-170) U/L Total Protein 5.5 L (6.3-8.2) g/dL Albumin 2.9 L (3.5-5.0) g/dL 10/26/20 Range/Units 11:18 WBC (3.8-10.6) k/uL RBC (4.30-5.90) m/uL Hgb (13.0-17.5) gm/dL Hct (39.0-53.0) % Plt Count (150-450) k/uL PT (9.0-12.0) sec INR (<1.2) APTT (22.0-30.0) sec Fibrinogen (200-500) mg/dL D-Dimer (<0.60) mg/L FEU Sodium (137-145) mmol/L Chloride (98-107) mmol/L BUN (9-20) mg/dL Creatinine (0.66-1.25) mg/dL Glucose (74-99) mg/dL POC Glucose (mg/dL) 134 H (75-99) mg/dL Ferritin (22.0-322.0) ng/mL Total Bilirubin (0.2-1.3) mg/dL AST (17-59) U/L ALT (4-49) U/L Lactate Dehydrogenase (313-618) U/L Creatine Kinase (55-170) U/L Total Protein (6.3-8.2) g/dL Albumin (3.5-5.0) g/dL Assessment and Plan Assessment: Acute on chronic hypoxemic respiratory failure, secondary to COVID 19 pneumonia. Acute on chronic renal failure. Chronic hypoxemic respiratory failure secondary to COPD, on home O2 at 2 L. History of previous heavy tobacco use. History of CAD. History of hyperlipidemia. History of hypertension. History of DVT/PE, currently on Xarelto. History of depression. History of sleep apnea syndrome, currently on CPAP. Peripheral vascular occlusive disease. History of BPH. Plan: Plan dated 10/26/2020. Patient will continue on IV fluids, for his hypernatremia which is improved. U nfortunately, the patient has pulled out all his IVs again. Another PICC line will be placed. The patient has not been able to take anything by mouth. We'll need to start some TPN on the patient. Additional recommendations and suggestions are forthcoming. Prognosis is guarded. We will continue to follow. All medications are reviewed. Time with Patient: Less than 30
--- NOTE | 2020-10-26 13:49 | IR ---
PICC LINE PLACEMENT: HISTORY: Infection requiring long-term antibiotic therapy PROCEDURE: Ultrasound guidance of PICC line placement. [employer] TECHNICIAN: Dr. Owen. COMPLICATIONS: None ANESTHESIA: 1. 1% Lidocaine locally. FINDINGS/TECHNIQUE: The procedure was explained to the patient. The risks, complications, benefits and alternatives were discussed and any questions were answered. Informed consent was obtained. The patient was placed supine on the fluoroscopic table and prepped and draped in the usual sterile [facility] ion. Utilizing a 21 gauge needle and sonographic guidance, access in the right brachial vein was ac hieved and there is placement of a 0.018 guidewire. The vein is patent. A 5-F. sheath was placed ov er the guidewire. The guidewire and dilator were removed and a 5-F. Double lumen PICC line was place d through the sheath with the chest x-ray confirming the tip at the level of the SVC. The sheath was removed, the catheter was flushed and sutured into position. The patient was stable throughout the procedure and remained stable upon discharge from the Department of Radiology. The vein puncture was patent under ultrasound. A jefferson scale image was obtained to document patency of the vein punctured. All elements of the maximal barrier technique were utilized. IMPRESSION: 1. Successful PICC line placement under ultrasound performed bedside within the ICU.
--- NOTE | 2020-10-26 13:54 | XR ---
EXAMINATION TYPE: XR chest 1V confirm line [facility] DATE OF EXAM: 10/26/2020 COMPARISON: Earlier today and 10/24/2020 HISTORY: 70-year-old male PICC line placement TECHNIQUE: Single frontal view of the chest is obtained. FINDINGS: Partially visualized bilateral shoulder arthroplasties. Vascular stent at the right apex. Right PICC tip at the mid SVC level. Heart normal size. Diffuse interstitial densities and some patchy basilar o pacities persist. The air cyst measuring 4.2 cm in the right lower lung is also redemonstrated. No si zable effusion. IMPRESSION: 1. Right PICC tip in the mid SVC level. 2. Persistent interstitial densities and patchy bibasilar infiltrates. 3. Redemonstrated 4.2 cm thin-walled cavitary lesion or air cyst which was noted to have recently dev eloped, subtly seen for the first time on 10/24/2020.
[2020-10-26 16:12] LABS: Magnesium 3.3 mg/dL (1.5-2.4); Phosphorus 6.2 mg/dL (2.4-5.1)
[2020-10-26 16:59] LABS: Glucose,Whole Blood 186 mg/dL (75-99)
[2020-10-26] MEDS ORDERED: MVI, ADULT NO.4 WITH VIT K 10 ML, TRACE (CONC-1ML/DOSE) 1 ML in AMINO ACID 5%-D15W 1,00... IV SCH ×3 (18:30)
[2020-10-26 20:41] LABS: Glucose,Whole Blood 241 mg/dL (75-99)
[2020-10-26] MEDS: HALOPERIDOL LACTATE 5 MG/ML 1 ML VIAL IVP PRN (22:41)
[2020-10-27 03:46] LABS: Albumin 2.6 g/dL (3.5-5.0); C Reactive Protein 6.4 mg/L (<10.0); Calcium 7.9 mg/dL (8.4-10.2); Magnesium 3.2 mg/dL (1.6-2.3); Phosphorus 5.2 mg/dL (2.5-4.5); Potassium 4.4 mmol/L (3.5-5.1); Total Bilirubin 3.4 mg/dL (0.2-1.3)
[2020-10-27] MEDS: DEXTROSE 5% IN WATER 1,000 ML IV SCH ×2 (05:49→17:35)
[2020-10-27 06:38] LABS: Glucose,Whole Blood 290 mg/dL (75-99)
[2020-10-27] MEDS: INSULIN ASPART (NovoLOG) 100 UNIT/ML VIAL SQ SCH ×4 (06:38→20:32)
[2020-10-27] MEDS: SYMBICORT 160-4.5 MCG INHALER INHALATION SCH ×2 (06:58→19:43)
[2020-10-27] MEDS: ALBUTEROL HFA INHALER INHALATION PRN ×3 (06:58→19:43)
[2020-10-27 07:13] LABS: Basophils % (A) 0 %; Eosinophils % (A) 0 %; HCT 30.6 % (39.0-53.0); HGB 10.2 gm/dL (13.0-17.5); Lymphocytes # (A) 0.2 k/uL (1.0-4.8); Lymphocytes % (A) 1 %; MCH 32.6 pg (25.0-35.0); MCHC 33.2 g/dL (31.0-37.0); MCV 98.1 fL (80.0-100.0); Mean Platelet Volume 10.8; Monocytes # (A) 0.2 k/uL (0-1.0); Monocytes % (A) 1 %; Neutrophils # (A) 13.9 k/uL (1.3-7.7); Neutrophils % (A) 97 %; Platelet Count 104 k/uL (150-450); RBC 3.12 m/uL (4.30-5.90); WBC 14.4 k/uL (3.8-10.6)
[2020-10-27] MEDS: ASPIRIN 81 MG PO SCH (09:39)
[2020-10-27] MEDS: INSULIN DETEMIR (LEVEMIR) 100 UNIT/ML SYR SQ SCH (09:40)
[2020-10-27] MEDS: PANTOPRAZOLE 40 MG/10 ML VIAL IVP SCH (09:40)
[2020-10-27] MEDS: methylPREDNISolone SOD SUCCI 40 MG/ML 1 ML VIAL IV SCH ×2 (09:41→20:17)
[2020-10-27] MEDS: NON FORMULARY DRUG (Atomoxetine Hcl [Strattera] 40 MG Capsule) PO SCH (09:41)
[2020-10-27] MEDS: NON FORMULARY DRUG (Atomoxetine Hcl [Strattera] 60 MG Capsule) PO SCH (09:41)
[2020-10-27] MEDS: METOPROLOL SUCCINATE (ER) 25 MG TAB.ER.24H PO SCH (09:43)
[2020-10-27] MEDS: VENLAFAXINE HCL 75 MG TAB PO SCH ×2 (09:44→20:17)
[2020-10-27] MEDS: RIVAROXABAN 20 MG TAB PO SCH (09:44)
[2020-10-27] MEDS: CHOLECALCIFEROL 25 MCG (1000 IU) TABLET PO SCH (09:45)
[2020-10-27] MEDS: MULTIVITAMINS, THERA 1 EACH TAB PO SCH (09:45)
[2020-10-27] MEDS: levETIRAcetam IV 500 MG in SODIUM CHLORIDE 0.9% 100 ML IVPB SCH ×2 (09:50→20:17)
[2020-10-27 11:07] LABS: Glucose,Whole Blood 196 mg/dL (75-99)
--- NOTE | 2020-10-27 11:07 | P.PN ---
Subjective Progress Note Date: 10/27/20 Principal diagnosis: Acute hypoxemic respiratory failure. The patient is seen today 10/20/2020 in follow-up in the intensive care unit. He is currently sitting up in bed. Awake and alert in no acute distress. He is still very weak and fatigued. He has very little reserve. Any little movement decreases his oxygen saturations. He is currently on AirVo high flow oxygen at 60 L and 90% FiO2 along with a nonrebreather mask. He's been on IV Solu-Medrol 60 every 6, Xarelto, bronchodilators. Received tocilizumab. Chest x-ray continues to show bilateral interstitial infiltrates with trace effusions. He remains on IV diuretics.. Plan to add Zosyn. Pro-calcitonin pending. White count up to 21.3. Hemoglobin 14.3. Sodium 136. Potassium 4.5. Creatinine 1.07. C-reactive protein less than 5.0. The patient is seen today 10/21/2020 in follow-up in the intensive care unit. He is currently awake and alert in no acute distress. Resting fairly comfortably in bed. Still quite fatigued and weak. Slightly better today compared to yesterday. Remains on AirVo high flow oxygen at 60 L and 90% FiO2 and a nonrebreather mask to maintain O2 saturation in the low to mid 80s. He's been afebrile. White count 27.3. Hemoglobin 15.0. D-dimer 9.89. Sodium 138. Potassium 4.6. Creatinine 1.11. LDH 2774. C-reactive protein less than 5.0. He's been on IV Solu-Medrol 60 every 6, Xarelto, bronchodilators. Received tocilizumab. Chest x-ray shows some worsening left lung infiltrate. Bibasilar patchy infiltrates. He was initiated on Zosyn. Procalcitonin 0.09. He remains on daily IV Lasix. Currently in a negative balance. Patient was reevaluated today on 10/22/2020, remains in the ICU, looks frail and chronically ill, looks weak, remains on high flow oxygen via airvo he is on 80% which was increased earlier to 90% and he is also on 60 L flow. After evaluat ing the patient today, I transitioned the patient to BiPAP, 100% FiO2 with IPAP of 14 EPAP of 16. Chest x-ray continues to show bilateral interstitial infiltrates, not much of a change in the last few days. ABG earlier on 80% FiO2 showed a pO2 of 45 pCO2 of 35 pH of 7.47. Clinically, the patient is comfortable, does not seem to be in distress, and I am not planning to proceed to intubation and mechanical ventilation at least not at this point. However if his condition gets clinically worse, would definitely recommend intubation and mechanical ventilation. Basic metabolic profile today is relatively normal BUN is 64 creatinine 1.17. His inflammatory markers remained relatively elevated. LDH is 2416, C-reactive protein is 5.1 WBC count is 22.7 hemoglobin is 14.3. Patient remains on Solu-Medrol, Xarelto, bronchodilators, and he received actemra. He also remains on Zosyn empirically. Patient was reevaluated today on 10/23/2020, patient remains remains on BiPAP, with IPAP of 14 EPAP of 6, 60% FiO2. Remains on Xarelto, his overall clinical status is marginal at best. Patient had an episode of confusion yesterday as he went to the bathroom, and he pulled his PICC line, a right femoral line was placed by Dr. Ramos shortly after. Patient is generally weak, lethargic, but arousable, follows simple instructions, and he tells me that he feels fine ABC showed leukocytosis with WBC of 24.3 hemoglobin is 14.7 and at rest are normal BUN is 73 creatinine 1.34. Liver enzymes are relatively elevated. Chest x-ray continues to show bilateral interstitial opacities with a small tiny trace of right-sided pleural effusion Reevaluated today , patient is basically about the same. Remains on BiPAP with the same settings as above, FiO2 was cut down to 55%. He is on IPAP of 14 and EPAP of 6. Remains on the Covid 19 cocktails. No major change in the last 24 hours Liver enzymes remain borderline elevated. D-dimer is 5.49. Electrolytes are normal except for elevated sodium and chloride. BUN is 75 creatinine is 1.28. W a count is 21.6 hemoglobin is 14.3. The patient is seen today 10/25/2020 in follow-up in the intensive care unit. He remains on BiPAP 14/6 and 55% FiO2. He is somewhat more obtunded today. Difficult to arouse. But able to wake up enough to take his medications. His knees are somewhat mottled. He is maintaining O2 saturations in the low 90s. He has 0.9 normal saline at 50 MLS per hour. Remains on IV Solu-Medrol, bronchodilators, Xarelto. White count 20.7. Hemoglobin 13.9. Lymphocytes 0.2. Sodium 157. Potassium 4.4. Creatinine 1.51. Progress note dated 10/24/2020. This is a 71-year-old male who was admitted to the hospital on October 09. He came in with a diagnosis of COVID 19 pneumonia. The patient was transferred to the intensive care unit on October 15. Currently, the patient remains on BiPAP, settings of IPAP 14, EPAP 6, and 55%. The patient's also getting D5W to 150 mL an hour. He did receive 2 doses of TOCI. Unfortunately, the patient has pulled out all his IVs including 2 central lines. A PICC line will be placed today so he can get nutrition. White count 23,000, hemoglobin 11.9, hematocrit 34.8, platelet count 138,000. PT 14, INR 1.4, PTT is 20.7, and d-dimer is 3.74. Sodium is down to 150 from 157, potassium 4.2, chlorides 118, CO2 26, anion gap 6, BUN 95, creatinine 1.94. LDH is 2059. Ferritin is 2227. Chest x-ray continues to show bilateral interstitial patchy infiltrates, and a pneumatocele in the right midlung. Progress note dated 10/27/2020. 71-year-old male, admitted to the hospital on October 09. He came in with a diagnosis of COVID 19 pneumonia. Currently, he is on AIRVO, settings of 55 L/m flow, FiO2 of 55%. Saturations are in the low 90s. Is getting D5W at 150 mL an hour, and TPN at 30 mL an hour. His sodium is down to 145. In addition, he received Haldol last night, 8 mg IV. He had a right upper extremity double- lumen PICC line placed yesterday. The arterial line to be discontinued as is nonfunctional. Other than that, the patient is doing about the same. White count 14.4, he will be 10.2, hematocrit 30.6, platelet count 104,000. Sodium 145, potassium 4.4, chlorides 115, CO2 22, anion gap 8, BUN 112, creatinine 2.12. Chest x-ray from October 27, is unchanged. Objective - Vital Signs Vital signs: Vital Signs Temp 98.2 F 10/27/20 04:00 Pulse 96 10/27/20 07:00 Resp 27 H 10/27/20 07:00 BP 120/72 10/27/20 07:00 Pulse Ox 90 L 10/27/20 08:23 Intake & Output 10/26/20 10/27/20 10/27/20 18:59 06:59 18:59 Intake Total 936 2166 183 Output Total 380 605 50 Balance 556 1561 133 Weight 103.4 kg 107.2 kg Intake: IV 936 2166 183 Dextrose 5% in Water 1, 900 1800 150 000 ml @ 150 mls/hr IV . Q6H40M [facility] Rx#:[id number] Mvi, Adult No.4 with Vit 330 30 K 10 ml Trace (Conc-1Ml/ Dose) 1 ml In Amino Acid 5%-D15w 1,000 ml @ 30 mls /hr IV .Q24H [facility] Rx#: [id number] pressure bag NS 36 36 3 Output: Urine 380 605 50 Other: Voiding Method Indwelling Catheter Indwelling Catheter ABP, PAP, CO, CI - Last Documented Arterial Blood Pressure 93/62 - Exam Confused, lethargic, he does arouse, AIRVO cannula in place. HEENT examination is grossly unremarkable. BiPAP mask in place. Neck supple. Full range of motion. No adenopathy thyromegaly or neck vein distention. Cardiovascular examination reveals regular rhythm rate. S1-S2 normal. No S3 or S4. No discernible murmur noted. Heart rate 96 bpm. Lungs reveal diffuse bilateral mostly basilar rhonchi and crackles. No wheezes. Breath sounds equal bilaterally. Exam is unchanged. Abdomen soft bowel sounds are heard. No masses or tenderness. Extremities are intact. No cyanosis clubbing or edema. Right upper extremity PICC line noted. Skin is without rash or lesion. Neurologic examination is brief but nonfocal. - Labs CBC & Chem 7: 10/27/20 03:20 10/27/20 03:20 Labs: Abnormal Lab Results - Last 24 Hours (Table) 10/26/20 10/26/20 10/26/20 Range/Units 05:30 11:18 16:46 WBC (3.8-10.6) k/uL RBC (4.30-5.90) m/uL Hgb (13.0-17.5) gm/dL Hct (39.0-53.0) % Plt Count (150-450) k/uL Neutrophils # (1.3-7.7) k/uL Lymphocytes # (1.0-4.8) k/uL Chloride (98-107) mmol/L BUN (9-20) mg/dL Creatinine (0.66-1.25) mg/dL Glucose (74-99) mg/dL POC Glucose (mg/dL) 134 H (75-99) mg/dL Calcium (8.4-10.2) mg/dL Phosphorus 6.2 H (2.4-5.1) mg/dL Magnesium 3.3 H (1.5-2.4) mg/dL Ferritin 2227.7 H (22.0-322.0) ng/mL Total Bilirubin (0.2-1.3) mg/dL AST (17-59) U/L ALT (4-49) U/L Total Protein (6.3-8.2) g/dL Albumin (3.5-5.0) g/dL Triglycerides 411.0 H (0.0-149.0) mg/dL 10/26/20 10/26/20 10/27/20 Range/Units 16:49 20:28 03:20 WBC (3.8-10.6) k/uL RBC (4.30-5.90) m/uL Hgb (13.0-17.5) gm/dL Hct (39.0-53.0) % Plt Count (150-450) k/uL Neutrophils # (1.3-7.7) k/uL Lymphocytes # (1.0-4.8) k/uL Chloride 115 H (98-107) mmol/L BUN 112 H* (9-20) mg/dL Creatinine 2.12 H (0.66-1.25) mg/dL Glucose 284 H (74-99) mg/dL POC Glucose (mg/dL) 186 H 241 H (75-99) mg/dL Calcium 7.9 L (8.4-10.2) mg/dL Phosphorus 5.2 H (2.4-5.1) mg/dL Magnesium 3.2 H (1.5-2.4) mg/dL Ferritin (22.0-322.0) ng/mL Total Bilirubin 3.4 H (0.2-1.3) mg/dL AST 97 H (17-59) U/L ALT 310 H (4-49) U/L Total Protein 5.0 L (6.3-8.2) g/dL Albumin 2.6 L (3.5-5.0) g/dL Triglycerides (0.0-149.0) mg/dL 10/27/20 10/27/20 Range/Units 03:20 06:36 WBC 14.4 H (3.8-10.6) k/uL RBC 3.12 L (4.30-5.90) m/uL Hgb 10.2 L (13.0-17.5) gm/dL Hct 30.6 L (39.0-53.0) % Plt Count 104 L (150-450) k/uL Neutrophils # 13.9 H (1.3-7.7) k/uL Lymphocytes # 0.2 L (1.0-4.8) k/uL Chloride (98-107) mmol/L BUN (9-20) mg/dL Creatinine (0.66-1.25) mg/dL Glucose (74-99) mg/dL POC Glucose (mg/dL) 290 H (75-99) mg/dL Calcium (8.4-10.2) mg/dL Phosphorus (2.4-5.1) mg/dL Magnesium (1.5-2.4) mg/dL Ferritin (22.0-322.0) ng/mL Total Bilirubin (0.2-1.3) mg/dL AST (17-59) U/L ALT (4-49) U/L Total Protein (6.3-8.2) g/dL Albumin (3.5-5.0) g/dL Triglycerides (0.0-149.0) mg/dL Assessment and Plan Assessment: Acute on chronic hypoxemic respiratory failure, secondary to COVID 19 pneumonia. Acute on chronic renal failure. Chronic hypoxemic respiratory failure secondary to COPD, on home O2 at 2 L. History of previous heavy tobacco use. History of CAD. History of hyperlipidemia. History of hypertension. History of DVT/PE, currently on Xarelto. History of depression. History of sleep apnea syndrome, currently on CPAP. Peripheral vascular occlusive disease. History of BPH. Plan: Plan dated 10/26/2020. Patient will continue on IV fluids, for his hypernatremia which is improved. Unfortunately, the patient has pulled out all his IVs again. Another PICC line will be placed. The patient has not been able to take anything by mouth. We'll need to start some TPN on the patient. Additional recommendations and suggestions are forthcoming. Prognosis is guarded. We will continue to follow. All medications are reviewed. Plan dated 10/27/2020. Yesterday, the patient was on BiPAP. Today he is on AIRVO. He is at 55 L/m with an FiO2 of 55%. He is getting D5W at 150 mL an hour, and TPN at 30 mL an hour. Sodium is 145. He last night, he required Haldol and milligrams IV push. A right upper extremity double-lumen PICC line was placed. The arterial line is nonfunctional and I asked the nurse to remove it. Chest x-ray, labs, and medications are reviewed. Prognosis is guarded. We will continue to follow the patient closely. He is a full code, and ultimately, may end up on mechanical ventilator. Time with Patient: Greater than 30
--- NOTE | 2020-10-27 11:21 | P.PN ---
Subjective Progress Note Date: 10/27/20 HISTORY OF PRESENT ILLNESS This is a 70 years old male patient of Dr. Polo with past medical history of pulmonary embolism diagnosed in [place] 2 years ago, history of lower extremity DVT, coronary artery disease no stent, history of heart failure unknown if systolic or diastolic, COPD, hyperlipidemia, hypertension, osteoarthritis, prostate cancer, skin disorder,'s obstructive sleep apnea on CPAP, subclavian steal syndrome with stent placement, history of recent penile implant on 07/27/2016. Patient has chronic shortness of breath that has been going on for the past 2 years since the diagnosis of pulmonary embolism with O2 requirements at 2 L nasal cannula Patient is currently on maintenance dose of xarelto at 10 mg daily. He presents emergency room secondary to worsening dyspnea, x 7 days without any medical intervention prior to this, He was seen in the Emergency room for the shortness of breath, worsening dyspnea and exertion, and was found to be SARS cov 2 positive. Chest x-ray, shows bilateral pulmonary interstitial infiltrates compared to old exam, with a similar atelectasis. Poor inspiration, no hilar masses laboratory shows hemoglobin of 12.9, WBC count of 7, creatinine of 1.47, iron of 1.2, glucose 120 CRP 88, pro-calcitonin slightly elevated 0.22. Patient denies any chronic prednisone exposure, Consult were made with pulmonary, Dr. Ramos, pulse oximetry would be 9 PT 1697 at 2-3 L nasal cannula, blood pressure of 129/66. 10/11: Patient was seen for follow-up today, he is a little bit tachypnea, very small amount of labored breathing only on exertion, no conversational dyspnea, O2 at 2 L, sats 95%, no clearance from pulmonary medicine are stable were rounding today, no cough, no pleurisy, no chest pain no palpitations, creatinine at 1.5 today, electrolytes are normal, wbc of 4.7, LDH of 784, ferritin 533 patient is on IV dexamethasone maintained on Xarelto, no new treatment from pulmonary critical care today, currently stable 10/12: A-Team is called during the night due to hypoxia and patient was started on AirVo. Respiratory rate is been in the 40s, heart rate 74, afebrile, pulse ox 96%. Chest x-ray from yesterday revealed patchy. Hilar and basilar infiltrates persist and have progressed slightly in the interval. Repeat blood work reveals WBC 6.8, hemoglobin 12.4, platelet count 135. LDH 1228. C- reactive protein 85.1. The patient has developed increasing difficulty with breathing. He denies having any chest pain. He states he could not sleep through the night. 10/13: Patient states that his breathing status is about the same as yesterday or little bit more difficult. He denies any coughing up blood. He denies any abdominal pain, nausea or vomiting, no diarrhea. Patient remains on Arava with pulse ox of 88-90%. Afebrile, heart rate 69, respiratory rate 40, blood pressure 137/76. Patient is status post 2 doses of Tocilizumab. patient is followed closely by pulmonary medicine. 10/14: Patient is currently on AirVo and nonrebreather but states that he is feeling better today and that his breathing is better. He has been afebrile, heart rate 72, respiratory rate 36, blood pressure 130/70, pulse ox 90%. He denies having abdominal pain, nausea vomiting or diarrhea. He remains on Solu- Medrol 60 mg IV every 6 hours. 10/15: Patient was transferred to the ICU per Dr. Wright. He is currently on AirVo only at time of evaluation and is eating his breakfast. Patient has been maintained on Arava plus nonrebreather. His breathing status appears to be improved from yesterday. His pulse ox is 88%. Afebrile, heart rate 76, respiratory rate 25, blood pressure 131/81. Repeat chest x-ray reveals stable chest. Repeat blood work reveals normal CBC. D-dimer 1.85. C-reactive protein 29. LDH is pending. Ferritin level 1340.6. Patient is scheduled for PICC line insertion today. Lasix 40 mg IV push ordered today by pulmonary medicine. Patient is continued on Solu-Medrol 60 mg every 6 hours. Patient not receiving any antibiotics at this time. 10/16: Patient remains in the intensive care unit. He was off nonrebreather and only on AirVo yesterday most of the day. Now he is on both AirVo and nonrebreather and taking the nonrebreather on and off as he needs it. He is eating 50% of his meals. He has been afebrile, heart rate 69, respiratory rate 34, blood pressure 142/80, pulse ox 88% on both AirVo and nonrebreather. Repeat blood work reveals W BC 13.5, hemoglobin 13.6, platelet count 247. Electrolytes normal. BUN 52 and creatinine 1.2. Blood sugars running between 120 975. Total bilirubin 1.0, AST 111, ALT 137, alkaline phosphatase 80. C-reactive p rotein 16.3, CK 65. Repeat chest x-ray reveals bilateral lower lobe infiltrate and small effusion with coarsened interstitium correlate for venous congestion versus interstitial pneumonia. Patient surprisingly feels his breathing is stable. He has no new complaints. 10/17: Patient remains in intensive care unit. He has been off the nonrebreather for the past hour and a half with only AirVo with pulse ox in the high 80s. He has been afebrile, heart rate in the 70s, blood pressure 142/86, respiratory rate in 30s. Patient verbalizes that his breathing status is improving. Repeat blood work reveals WBC 15.8, hemoglobin 13.7, platelet count 239. Electrolytes normal. BUN 54 and creatinine 1.09. Blood sugars running between 120 765. Total bilirubin 1.5, AST 195, ALT 304, alkaline phosphatase 92, LDH 2785. CK 51, C-reactive protein 11.3. Repeat chest x-ray reveals mild interval pro gression in the lung infiltrates within the right lung. Left lung is stable. No change in small bilateral pleural effusions. 10/18: Patient remains in intensive care unit. He is seen today on AirVo and nonrebreather and pulse ox has been marginal in the low to mid 80s. Heart rate is in the 70s, respiratory rate in the 30s, blood pressure 136/87. He has been afebrile. Repeat blood work reveals WBC 18.4. Electrolytes normal, BUN 59 and creatinine 1.03. Blood sugars running between 126 and 166. Ferritin level 1817. D-dimer 11.45. Total bilirubin 1.7, AST 128, ALT 309, alkaline phosphat ase 121. LDH 3174. CK 98, C-reactive protein 5.9. Repeat chest x-ray reveals left perihilar and basilar infiltrates persist 10/19: Patient's breathing status remains about the same. He has been afebrile, heart rate 70s, respiratory rate 29, blood pressure 143/87. Pulse ox is running mid to high 80s with nonrebreather and high flow nasal cannula. WBC 19.1, hemoglobin 14.1, platelet count 247. D-dimer 11.64. Electrolytes normal. BUN 55 and creatinine 1.05. Blood sugars running between 124 and 197. Ferritin 1583. Total bilirubin 1.4, AST 99, ALT 266, alk phos was 123. LDH 2962. C-re active protein 5.4. Repeat chest x-ray shows no pneumothorax. Interstitial and patchy bilateral infiltrates. 10/20: Patient remains in the intensive care unit and he is currently on nonrebreather and high flow nasal cannula. Pulse ox is running 86-91%. He has been afebrile, heart rate in the 70s, respiratory rate 29, blood pressure 145/81. WBC 21.3. Sodium 136, BUN 57 and creatinine 1.07. Blood sugars running between 100 3459. Ferritin level 1616. Total bilirubin 1.8, AST 87, ALT 262, alkaline phosphatase 131. C-reactive protein normal at less than 5. Repeat chest x-ray reveals relatively stable with interstitial infiltrates and possible trace effusions. 10/21:patient remains in the intensive care unit. He is on Arava oh and nonrebreather with pulse ox in the mid 80s. Patient has been afebrile.Heart rate in the 70s and 60s, respiratory rate in the mid to high 20s, pulse ox a nywhere between 81-89%, blood pressure 119/81. WBC 27.3, hemoglobin 15, platelet count 202. Electrolytes normal, BUN 61 and creatinine 1.11. Blood sugars running between 141 and 158. Ferritin level 1639, total bilirubin 2.0, AST 104, ALT 296, alkaline phosphatase 136. LDH 2774. C-reactive protein less than 5. Patient is continued on Zosyn, IV Solu-Medrol heart rate in the 60s and 70s, respiratory rate in the 20s n and IV Lasix. 10/22: Patient remains in the intensive care unit currently on BiPAP. Patient had some increased anxiety this morning was given Xanax and was lethargic following with desats and subsequently placed on BiPAP. He's been running high 90s for pulse ox. He's been afebrile, heart rate in the 70s, respiratory rate in the 20s to 30s, blood pressure 125/91. Repeat blood work reveals W BC 22.7, hemoglobin 14.3, platelet count 173. Electrolytes are normal except for CO2 of 31, BUN 64 and creatinine 1.17. Ferritin 1475.9. Total bilirubin 2.3, AST 88, ALT 281, alkaline phosphatase 133. LDH 2416. Blood sugars running between 144 and 158. Repeat chest x-ray reveals mild diffuse increased lung opacities. Patient is continued on Zosyn, Solu-Medrol. Patient may require intubation. 10/23: The patient remains on BiPAP with pulse ox between 86 and 92 with FiO2 of 60%, respiratory rate anywhere between 28 and 40, heart rate in the 80s, afebrile. Patient is getting tired and fatigued. He actually pulled his PICC line out and arterial line and femoral triple-lumen catheter was placed. Repeat chest x-ray reveals similar diffuse bilateral interstitial opacities. Possible trace right effusion. Patient's mental status is stable today. He did have some mild confusion and lethargy yesterday. WBC 24.3. BUN 73 and creatinine 1.34. Blood sugars running between 140 154. Total bilirubin 3.1, AST 117, ALT 329, alkaline phosphatase 137. 10/26: Patient remains in the intensive care unit on BiPAP. Pulse ox is 89-93% on BiPAP of 55% FiO2. Respiratory rate in the 30s, afebrile, heart rate in the 80s and 90s, blood pressure 101/69. Repeat blood work reveals W BC 23.0, hemoglobin 11.9, platelet count 138. INR is 1.4. D-dimer 3.7 following her. Sodium 150, potassium 4.2, chloride 118, CO2 26, BUN 95 and creatinine 1.94. Blood sugars running between 124 and 214. Total bilirubin 3.8, AST 132, ALT 407, alkaline phosphatase 83. LDH 2059. CK 272. Patient's IV fluids were switched to D5 yesterday at 150 mL per hour and IV Lasix was discontinued with improvement of his sodium. Patient pulled out his central line. Prognosis is guarded. 10/27: Patient is afebrile, heart rate 96, respiratory rate 27, blood pressure 120/72, pulse ox 90-95 percent on AirVo with FiO2 of 70%. Patient was decreased to 55% and he seems to be desats into the low 80s. Repeat blood work reveals WBC 14.4, hemoglobin 10.3, platelet count 104. Sodium 145, potassium 4.5, chloride 115, CO2 22, BUN 112 and creatinine 2.12. Blood sugars running between 186 and 290. Phosphorus 5.2, magnesium 3.2, total bilirubin 3.4, AST 97, ALT 310, alkaline phosphatase 75. C-reactive protein 6.4. Patient has been started on TPN. REVIEW OF SYSTEMS Constitutional: Denies fever, no chills, no night sweats. Generalized weakness, reports fatigue. EENT: No headache. No dizziness. No nasal drainage or congestion. No sore throat. Lungs: Reports shortness of breath, reports cough, no sputum production. No wheezing. reports dyspnea with exertion. Cardiovascular: No chest pain, no lower extremity edema. No palpitations. No paroxysmal nocturnal dyspnea. No orthopnea. No lightheadedness or dizziness. No syncopal episodes. Abdominal: No abdominal pain. No nausea, vomiting. No diarrhea. No constipation. No bloody or tarry stools reports loss of appetite. Genitourinary: No dysuria, increased frequency, urgency. No urinary retention. Musculoskeletal: No myalgias. Reports muscle weakness, no gait dysfunction, no frequent falls. No back pain. No neck pain. Integumentary: No wounds, no lesions. No rash or pruritus. No unusual brui sing. High flow nasal cannula Neurologic: No aphasia. No facial droop. No change in mentation. No head injury. No headache. Psychiatric: No depression. No anxiety. No mood swings. Reports insomnia. Endocrine: Noted abnormal blood sugars. No weight change. PHYSICAL EXAMINATION Gen: This is a 70-year-old male. He is resting in ICU bed and appears to be fatigued. Patient is on AirVo. HEENT: Head is atraumatic, normocephalic. Pupils equal, round. Sclerae is anicteric. NECK: Supple. No JVD. No lymphadenopathy. No thyromegaly. LUNGS: Few scattered rhonchi and scattered expiratory wheezing. Mild intercostal retractions. HEART: Regular rate and rhythm. No murmur. ABDOMEN: Soft. Bowel sounds are present. No masses. No tenderness. EXTREMITIES: No pedal edema. No calf tenderness. Dorsalis pedis palpable bilaterally. NEUROLOGICAL: Patient is awake, alert and oriented x3. Cranial nerves 2 through 12 are grossly intact. ASSESSMENT AND PLAN 1. Acute SARS COV2, infection with acute hypoxic respiratory failure. Continue current management per pulmonary medicine. Continue Solu-Medrol 40 mg every 12 hours, albuterol inhaler as needed, Symbicort inhaler twice daily. Continue vitamin D. Patient is status post 2 doses of Tocilizumab. Continue Incentive spirometry. Patient may require intubation. Monitor inflammatory markers. 2. Thrombocytopenia secondary to COVID 19 infection. Continue to monitor. 3. Acute kidney injury secondary to dehydration, poor oral intake. Continue to monitor renal function. 4. Chronic anticoagulation, secondary to history of DVT. Continue Xarelto. 5. History of DVT of the right leg in December 2013, resolved on Lasix 40 mg daily, 6. COPD. Continue albuterol- Atrovent as needed . Continue Symbicort twice daily 7. Hyperlipidemia. Continue Crestor daily. 8. Subclavian steal syndrome status post stent in the right carotid. 9. Benign prostatic hypertrophy. Monitor for urinary retention. Continue Flomax daily 10. History of coronary artery disease with previous myocardial infarction. 11. Obstructive Sleep apnea. Patient to continue his own CPAP machine. 12. Gastroesophageal reflux disease and gastric intestinal prophylaxis. Continue Nexium or equivalent. 13. Hypertension. Continue bystolic 10 mg daily . Hold aldactone. 14. Depression. Continue Cymbalta 150 mg twice daily. 15. History of ADHD. Strattera on hold. 16. Chronic kidney disease stage III, stable 17. Chronic systolic heart failure and ischemic cardiomyopathy with prior ejection fraction 40%. Continue aspirin 81 mg metoprolol 18. Hyperglycemia secondary to steroids and TPN. Patient placed on Levemir 12 units daily along with NovoLog scale. CODE STATUS full code Prognosis guarded. DISCHARGE PLAN TBD. Impression and plan of care have been directed as dictated by the signing physician. Nena Frausto nurse practitioner acting as scribe for signing physician. Objective - Vital Signs Vital signs: Vital Signs Temp 98.2 F 10/27/20 04:00 Pulse 96 10/27/20 07:00 Resp 27 H 10/27/20 07:00 BP 120/72 10/27/20 07:00 Pulse Ox 90 L 10/27/20 08:23 Intake & Output 10/26/20 10/27/20 10/27/20 18:59 06:59 18:59 Intake Total 936 2166 183 Output Total 380 605 50 Balance 556 1561 133 Weight 103.4 kg 107.2 kg Intake: IV 936 2166 183 Dextrose 5% in Water 1, 900 1800 150 000 ml @ 150 mls/hr IV . Q6H40M [facility] Rx#:[id number] Mvi, Adult No.4 with Vit 330 30 K 10 ml Trace (Conc-1Ml/ Dose) 1 ml In Amino Acid 5%-D15w 1,000 ml @ 30 mls /hr IV .Q24H [facility] Rx#: [id number] pressure bag NS 36 36 3 Output: Urine 380 605 50 Other: Voiding Method Indwelling Catheter Indwelling Catheter ABP, PAP, CO, CI - Last Documented Arterial Blood Pressure 93/62 - Labs CBC & Chem 7: 10/27/20 03:20 10/27/20 03:20 Labs: Abnormal Lab Results - Last 24 Hours (Table) 10/26/20 10/26/20 10/26/20 Range/Units 05:30 11:18 16:46 WBC (3.8-10.6) k/uL RBC (4.30-5.90) m/uL Hgb (13.0-17.5) gm/dL Hct (39.0-53.0) % Plt Count (150-450) k/uL Neutrophils # (1.3-7.7) k/uL Lymphocytes # (1.0-4.8) k/uL Chloride (98-107) mmol/L BUN (9-20) mg/dL Creatinine (0.66-1.25) mg/dL Glucose (74-99) mg/dL POC Glucose (mg/dL) 134 H (75-99) mg/dL Calcium (8.4-10.2) mg/dL Phosphorus 6.2 H (2.4-5.1) mg/dL Magnesium 3.3 H (1.5-2.4) mg/dL Ferritin 2227.7 H (22.0-322.0) ng/mL Total Bilirubin (0.2-1.3) mg/dL AST (17-59) U/L ALT (4-49) U/L Total Protein (6.3-8.2) g/dL Albumin (3.5-5.0) g/dL Triglycerides 411.0 H (0.0-149.0) mg/dL 10/26/20 10/26/20 10/27/20 Range/Units 16:49 20:28 03:20 WBC (3.8-10.6) k/uL RBC (4.30-5.90) m/uL Hgb (13.0-17.5) gm/dL Hct (39.0-53.0) % Plt Count (150-450) k/uL Neutrophils # (1.3-7.7) k/uL Lymphocytes # (1.0-4.8) k/uL Chloride 115 H (98-107) mmol/L BUN 112 H* (9-20) mg/dL Creatinine 2.12 H (0.66-1.25) mg/dL Glucose 284 H (74-99) mg/dL POC Glucose (mg/dL) 186 H 241 H (75-99) mg/dL Calcium 7.9 L (8.4-10.2) mg/dL Phosphorus 5.2 H (2.4-5.1) mg/dL Magnesium 3.2 H (1.5-2.4) mg/dL Ferritin (22.0-322.0) ng/mL Total Bilirubin 3.4 H (0.2-1.3) mg/dL AST 97 H (17-59) U/L ALT 310 H (4-49) U/L Total Protein 5.0 L (6.3-8.2) g/dL Albumin 2.6 L (3.5-5.0) g/dL Triglycerides (0.0-149.0) mg/dL 10/27/20 10/27/20 Range/Units 03:20 06:36 WBC 14.4 H (3.8-10.6) k/uL RBC 3.12 L (4.30-5.90) m/uL Hgb 10.2 L (13.0-17.5) gm/dL Hct 30.6 L (39.0-53.0) % Plt Count 104 L (150-450) k/uL Neutrophils # 13.9 H (1.3-7.7) k/uL Lymphocytes # 0.2 L (1.0-4.8) k/uL Chloride (98-107) mmol/L BUN (9-20) mg/dL Creatinine (0.66-1.25) mg/dL Glucose (74-99) mg/dL POC Glucose (mg/dL) 290 H (75-99) mg/dL Calcium (8.4-10.2) mg/dL Phosphorus (2.4-5.1) mg/dL Magnesium (1.5-2.4) mg/dL Ferritin (22.0-322.0) ng/mL Total Bilirubin (0.2-1.3) mg/dL AST (17-59) U/L ALT (4-49) U/L Total Protein (6.3-8.2) g/dL Albumin (3.5-5.0) g/dL Triglycerides (0.0-149.0) mg/dL
--- NOTE | 2020-10-27 12:06 | XR ---
EXAMINATION TYPE: XR chest 1V portable DATE OF EXAM: 10/27/2020 COMPARISON: 10/27/2019 INDICATION: Covid TECHNIQUE: Single frontal view of the chest is obtained. FINDINGS: The heart size is normal. The pulmonary vasculature is normal. Mild infiltrate is present. Findings are worsening over the interval. A pneumatocele-like area in the right lower lobe is again evident. PICC line enters on the right with the tip in the superior vena cava region. IMPRESSION: 1. Mild increase in lung infiltrates
[2020-10-27] MEDS: NEBIVOLOL 5 MG TAB PO SCH (12:33)
[2020-10-27 17:05] LABS: Glucose,Whole Blood 153 mg/dL (75-99)
--- NOTE | 2020-10-27 17:14 | US ---
EXAMINATION TYPE: US kidneys/renal and bladder DATE OF EXAM: 10/27/2020 COMPARISON: NONE CLINICAL HISTORY: RF. EXAM MEASUREMENTS: Right Kidney: 8.6 x 4.2 x 4.1 cm Left Kidney: not seen/limitations below Patient position and room limitations don't allow for tech to be able to scan left kidney. Right Kidney: measures small . Cortical thinning noted. No hydronephrosis or nephrolithiasis. Left Kidney: not seen Bladder: Incompletely distended due to Pike catheter and nondiagnostic. IMPRESSION: 1. Nonvisualization of the left kidney. Right kidney demonstrates no evidence of hydronephrosis or ne phrolithiasis. Cortical thinning suggest chronic medical renal disease.
[2020-10-27] MEDS ORDERED: MVI, ADULT NO.4 WITH VIT K 10 ML, TRACE (CONC-1ML/DOSE) 1 ML in AMINO ACID 5%-D15W 1,00... IV SCH ×3 (18:30)
[2020-10-27] MEDS: PIPERACILLIN-TAZOBACTAM 3.375 GM in SODIUM CHLORIDE 0.9% 100 ML IVPB SCH (19:55)
[2020-10-27 20:05] LABS: Bacteria,Urine Rare /hpf; Mucus,Urine Rare /hpf; RBC,Urine 2 /hpf (0-5); Squamous Epithelial Cell,Urine <1 /hpf (0-4); WBC,Urine 2 /hpf (0-5)
[2020-10-27 20:30] LABS: Glucose,Whole Blood 159 mg/dL (75-99)
[2020-10-27 21:28] LABS: Color,Urine Yellow
[2020-10-27 21:29] LABS: Appearance,Urine Clear (Clear); Bilirubin,Urine Negative (Negative); Blood,Urine Moderate (Negative); Glucose,Urine (UA) Negative (Negative); Ketones,Urine Negative (Negative); Nitrite,Urine Negative (Negative); Protein,Urine Trace (Negative); Specific Gravity,Urine 1.014 (1.001-1.035)
[2020-10-27 21:30] LABS: Leukocyte Esterase,Urine Negative (Negative)
[2020-10-27 21:33] LABS: Glucose,Whole Blood 168 mg/dL (75-99)
--- NOTE | 2020-10-27 22:59 | CONS ---
CONSULTATION REASON FOR CONSULT: Renal failure. HISTORY OF PRESENT ILLNESS: Patient is a 70-year-old male who was admitted to the hospital on 10/09/2020 with shortness of breath. The patient developed progressive respiratory failure and he has been on BiPAP. He tested positive for COVID-19 and is being treated for COVID-19 pneumonia. He has been confused and has been pulling out his PICC lines and other IV sites as well. Serum creatinine has started to increase over the past 3-4 days with creatinine at 2.1 today, which is up from 1.5 on 10/25/2020 and 1.3 on 10/23/2020. Previous creatinine as low as 1.0 on 10/20/2020. No significant hypotension noted at this point. Patient has not been able to eat and is maintained on TPN. I do see a systolic pressure of 93 mmHg this morning. No IV contrast administration. Patient's sodium was elevated at 157 and he is currently maintained on D5W. Urine output is maintained at about 60 to 40 mL/hour. PAST MEDICAL HISTORY: Coronary artery disease, CHF, DVT, COPD, gastroesophageal reflux disease, hyperlipidemia, hypertension, osteoarthritis, BPH, history of PE, skin cancer on the face. PAST SURGICAL HISTORY: Cardiac catheterization, bilateral hip arthroplasty, knee arthroplasty, TURP x2, subclavian artery stent placement, penile implant. SOCIAL HISTORY: Patient is a former smoker. No history of drug abuse or alcohol abuse. MEDICATIONS: Medications prior to admission included aspirin, albuterol, mirtazepine, Xarelto, Crestor, Effexor, Strattera, Lasix, Zyloprim, Claritin, metoprolol, Bystolic, Ambien, Keppra. Currently patient is maintained on IV fluids, D5W, updraft treatments, insulin, Keppra, Solu-Medrol, Toprol, Bystolic, Protonix, Xarelto, Effexor. For the COVID pneumonia he has received Actemra and also remdesivir prior to that. REVIEW OF SYSTEMS: Negative for obvious GI bleed. Regarding the respiratory status, patient has been requiring BiPAP. He has been confused at times. PHYSICAL EXAMINATION: Blood pressure this morning was 120/74, heart rate 99 per minute. He is afebrile. The patient is currently off of the BiPAP, maintained on high-flow oxygen. No significant edema noted in his lower extremities. ABDOMEN: Soft, obese. Heart and lungs are not examined. [employer] exam cannot be examined in detail. Patient has been confused, but moving all 4 extremities per nursing staff. LABS: Hemoglobin 10.2, white cell count 14.4, sodium 145, potassium 4.4, chloride 115. CO2 is 22 BUN 112, serum creatinine 2.1, phosphorus 5.2. ASSESSMENT: 1. Acute kidney injury, acute tubular necrosis, currently nonoliguric, mostly related to underlying COVID pneumonia and infection, some degree of hypoperfusion. Continue with IV fluids continue with TPN I will decrease the IV fluids. Avoid any nephrotoxic medications. Check ultrasound of the kidneys and check urinalysis. 2. Hypernatremia associated with free water deficit currently improved with D5 W. 3. Covidien 90 pneumonia status post Imdur and Actemra x2, maintained on steroids. 4. Acute hypoxic respiratory failure. 5. Hyperphosphatemia associated with acute kidney injury. DC phosphorus in the TPN. 6. History of DVT maintained on the Xarelto. There was also history of PE previously. PLAN: Decrease D5 W repeat labs in a.m. continue with the TPN. Avoid nephrotoxic medications. Thank you for this consultation. Will continue to follow the patient with you during his hospitalization and dictation in plan also add check UA check ultrasound of the kidneys. MMODL / IJN: [id number] /
[2020-10-28 04:34] LABS: HGB 9.9 gm/dL (13.0-17.5); MCH 33.2 pg (25.0-35.0); MCHC 34.1 g/dL (31.0-37.0); MCV 97.3 fL (80.0-100.0); Mean Platelet Volume 10.9; Platelet Count 97 k/uL (150-450); RBC 2.98 m/uL (4.30-5.90)
[2020-10-28 04:44] LABS: Albumin 2.6 g/dL (3.5-5.0); Calcium 7.9 mg/dL (8.4-10.2); Phosphorus 3.6 mg/dL (2.5-4.5); Total Bilirubin 3.8 mg/dL (0.2-1.3); Total Protein 5.2 g/dL (6.3-8.2)
[2020-10-28 04:47] LABS: D-Dimer 2.83 mg/L FEU (<0.60)
[2020-10-28 05:38] LABS: Band Neutrophils % 2 %; Eosinophils # (M) 0.15 k/uL (0-0.7); Metamyelocytes # (M) 0.15 k/uL (0); Metamyelocytes % 1 %; Monocytes # (M) 0.45 k/uL (0-1.0); Neutrophils % (M) 93 %; Nucleated Red Blood Cells 1 /100 WBC (0-0); Total Cells Counted 200; WBC 15.1 k/uL (3.8-10.6)
[2020-10-28 05:40] LABS: Anisocytosis (M) Present
[2020-10-28 06:39] LABS: Glucose,Whole Blood 203 mg/dL (75-99)
--- NOTE | 2020-10-28 07:23 | XR ---
EXAMINATION TYPE: XR chest 1V portable DATE OF EXAM: 10/28/2020 HISTORY: Shortness of breath. COMPARISON: 10/27/2020 TECHNIQUE: Single view of the chest is submitted. FINDINGS: Demonstrated are scattered senescent parenchymal change. Scattered interstitial infiltrates persist without significant change. The heart is stable. Hilar and mediastinal structures are within normal limits. Degenerative changes are seen of the dorsal spine. IMPRESSION: 1. Scattered interstitial infiltrates persist without significant change.
[2020-10-28] MEDS: DEXTROSE 5% IN WATER 1,000 ML IV SCH ×2 (08:19→17:34)
[2020-10-28] MEDS: INSULIN ASPART (NovoLOG) 100 UNIT/ML VIAL SQ SCH ×4 (08:19→20:57)
[2020-10-28] MEDS: INSULIN DETEMIR (LEVEMIR) 100 UNIT/ML SYR SQ SCH (08:19)
[2020-10-28] MEDS: METOPROLOL SUCCINATE (ER) 25 MG TAB.ER.24H PO SCH (08:20)
[2020-10-28] MEDS: CHOLECALCIFEROL 25 MCG (1000 IU) TABLET PO SCH (08:20)
[2020-10-28] MEDS: levETIRAcetam IV 500 MG in SODIUM CHLORIDE 0.9% 100 ML IVPB SCH ×2 (08:20→20:17)
[2020-10-28] MEDS: methylPREDNISolone SOD SUCCI 40 MG/ML 1 ML VIAL IV SCH ×2 (08:21→20:17)
[2020-10-28] MEDS: PANTOPRAZOLE 40 MG/10 ML VIAL IVP SCH (08:21)
[2020-10-28] MEDS: ASPIRIN 81 MG PO SCH (08:21)
[2020-10-28] MEDS: RIVAROXABAN 20 MG TAB PO SCH (08:21)
[2020-10-28] MEDS: MULTIVITAMINS, THERA 1 EACH TAB PO SCH (08:21)
[2020-10-28] MEDS: VENLAFAXINE HCL 75 MG TAB PO SCH ×2 (08:22→20:47)
[2020-10-28] MEDS: ALBUTEROL HFA INHALER INHALATION PRN ×3 (09:10→21:24)
[2020-10-28] MEDS: SYMBICORT 160-4.5 MCG INHALER INHALATION SCH ×2 (09:10→21:23)
[2020-10-28] MEDS: NON FORMULARY DRUG (Atomoxetine Hcl [Strattera] 40 MG Capsule) PO SCH (09:26)
[2020-10-28] MEDS: NON FORMULARY DRUG (Atomoxetine Hcl [Strattera] 60 MG Capsule) PO SCH (09:26)
[2020-10-28] MEDS: NEBIVOLOL 5 MG TAB PO SCH (11:02)
[2020-10-28 11:29] LABS: Glucose,Whole Blood 205 mg/dL (75-99)
[2020-10-28 12:05] LABS: Ferritin 1385.2 ng/mL (22.0-322.0)
--- NOTE | 2020-10-28 13:13 | P.PN ---
Subjective Progress Note Date: 10/28/20 Principal diagnosis: CoVID 19 pneumonia This is a pleasant 70-year-old gentleman follows with Dr. Polo as his primary care provider. He has a history of coronary artery disease, peripheral vascular disease, congestive heart failure, hyperlipidemia, hypertension, PE/DVT, obstructive sleep apnea utilizing CPAP, chronic obstructive pulmonary disease on home oxygen at 2 L/m per nasal cannula. The patient is a 1 week history of increasing shortness of breath, nausea, vomiting, diarrhea, weakness and was seen at [facility] and tested positive for CoVID and was instructed to go to the emergency room. Chest x-ray reveals mild bilateral pulmonary interstitial infiltrates. He is seen today in consultation on the selective care unit. He is currently sitting up in bed. Awake and alert in no acute distress. He is maintaining good O2 saturations in the mid 90s on 2 L/m per nasal cannula. He is afebrile. Hemodynamically stable. White count 4.7. Hemoglobin 12.9. Platelet count 116. Lymphocytes 0.7. D-dimer 0.18. Sodium 139. Potassium 4.3. Creatinine 1.51. LDH 784. C-reactive protein 88.5. Pro Calcitonin 0.22. He's been initiated on Symbicort, albuterol. Endocrine related with Xarelto. On dexamethasone, multivitamin. The patient is seen today 10/11/2020 in follow-up on the selective care unit. He is currently sitting up in bed. Awake and alert in no acute distress. He is requiring 3 L nasal cannula to maintain O2 saturations 88% and higher. He is normally on 2 L at home. He denies any worsening shortness of breath. He continues with a loose nonproductive cough. He is maintained on dexamethasone, vitamin supplements. Anticoagulated with Xarelto. 10/12/2020 the patient is being seen in follow-up in the selective units. The patient has been diagnosed having Covid 19 related pneumonia. The patient is 70 years old and he is known to have coronary artery disease, peripheral vascular disease, congestive heart failure, hyperlipidemia, hypertension, PE/DVT, obstructive sleep apnea utilizing CPAP, chronic obstructive pulmonary disease on home oxygen at 2 L/m per nasal cannula. The patient is currently maintained on dexamethasone, vitamin supplements. Anticoagulated with Xarelto. The patient's pulmonary status overnight decompensated. The patient had the replacement high flow oxygen at 60 L with an FiO2 of 60%. Chest x-ray showed diffuse bilateral pulmonary infiltrates, mostly peripheral, consistent with Covid 19 pneumonia, probably there is some interval worsening. The patient has bilateral shoulder replacement. The blood gases from yesterday showed a pH of 7.45 with a pCO2 of 38 and pO2 of 63. His inflammatory markers from today are elevated. LDH level is up to 1228 and a CRP level is up to 85. Need 2020, the patient is still on high flow oxygen at 60 L with an FiO2 of 55%. Based on the significant drop in oxygenation, which The patient on steroids and the patient is currently on Decadron and we added Toci 400 mg and the patient received only 1 dose. He is going to receive his second dose of 400 mg today. Patient's oxygenation is stable. D-dimer is down at 0.33. His LDH level is at 1228 and the CRP is at 85. The chest x-ray from yesterday showed bilateral patchy pulmonary infiltrates. The patient has approximately 2 fibrillation and is maintained on Xarelto. The patient also is known to have coronary artery disease, peripheral vascular disease, congestive heart failure, hyperlipidemia, hypertension, PE/DVT, obstructive sleep apnea utilizing CPAP, chronic obstructive pulmonary disease on home oxygen at 2 L/m per nasal cannula. On 10/14/2020, the patient is gradually getting worse. He was desaturating despite being on high flow oxygen at 60 L and an FiO2 of 90% and he is also utilizing 100% nonrebreather facemask. Note that this patient has been treated aggressively. He received Decadron. He also received 2 doses of Tocilizumab. . The patient had a d-dimer of 1.06 and the rest of the inflammatory markers are still pending for now. Meanwhile, his labs are essentially within normal limits and his creatinine is down to 1.2. He remains on Decadron 6 mg IV every 24 hours. He is also on long-term antibiotic ventilation with Xarelto 20 mg by mouth daily. Note that the patient has previous history of DVT and pulmonary embolism. He has obstructive sleep apnea and he has COPD and is maintained on oxygen at 2 L per minute at home for chronic hypoxic respiratory failure. He has hypertension and hyperlipidemia congestion heart failure and peripheral vascular disease in addition to CABG as comorbid conditions. His last chest x- ray was from 09/14/2020 and a repeat chest x-ray will be ordered. His last chest x-ray showed diffuse breath and pulmonary infiltrates, mainly the peripheries consistent with Covid 19 related pneumonia. 10/15/2020, the patient is currently in the intensive care unit. Just like yesterday, he remains on high flow oxygen 6 L with an FiO2 of 90% and the patient is also utilizing 100% nonrebreather facemask. His current pulse ox is around 91%. He is comfortable. Is at the rate is in the low 30s. His chest x- ray from today showing stable bilateral pulmonary infiltrates without any major interval change compared to yesterday. His blood work from today shows no electrolyte abnormalities, creatinine stable at 1.2. His inflammatory markers are still pending. CRP is down to 29, LDH is pending for now. The d-dimer is at 1.85. In terms of therapy, and he is on IV Solu-Medrol 60 mg every 6 hours is also on multivitamins and he remains on long-term anticoagulation with Xarelto. He is lethargic. Oral intake is quite diminished at this point in time. No altered mentation. Is able to follow commands appropriately. He is weak. He is known to have COPD, previous bypass, hypertension and hyperlipidemia and peripheral vascular disease. He is also known to have CHF. He does have a remote history of DVT and pulmonary embolism. He remains in the ICU for now. He got transferred to the ICU yesterday because of ongoing difficulties with shortness of breath and hypoxemia. His echocardiogram from 2018 was essentially within normal limits and he had a normal ejection fraction. 10/16/2020, Rayo is on 60 L of oxygen along with an FiO2 of 90% and the patient is on 100% nonrebreather facemask. He is quite comfortable. He takes of his main for feeding purposes. During this time, he desaturates and is relatively asymptomatic while he desaturates. He goes down to the 80s and he recovers. He is not tachypneic. He is resting comfortably in bed. In terms of treatment, the patient remains on IV Solu Medrol 60 mg every 6 hours. He is on long-term anticoagulation with Xarelto. His chest x-ray from today is reviewed and is showing some limited improvement in the bilateral interstitial infiltrates seen earlier. In terms of his inflammatory markers, his LDH from yesterday and today has not been checked. His last LDH level was on 10/14/2020 was 1797. His CRP level has dropped down to 16.3. His d-dimer level is at 4.08. As mentioned, the patient is on anticoagulation and he is on Xarelto. He is also on Lasix and he is receiving Lasix 40 mg IV every 24 hours. Neck fluid balance over the past 24 hours has been -2.2 L and is responding nicely to diuretics and his weight is declined. No other significant issues. No altered mentation. No agitation. No confusion. No nausea. No vomiting. No diarrhea. No abdominal pain. No chest pain. He is known to have CAD, previous bypass, hypertension and hyperlipidemia and peripheral vascular disease. He also has history of DVT and pulmonary embolism remains on anticoagulation. 10/17/2020, the patient is on high flow oxygen at 60 L along with FiO2 of 90%. Chest x-ray showing infiltrates mainly on the left compared to the right. Lung volumes are essentially small. No major interval change compared to yesterday, the right lung is obviously better compared to the chest x-ray yesterday. In terms of his clinical status, the patient is feeling that he is less short of breath compared to yesterday. He has occasional cough. No chest pain. He is able to get rid of his 100% nonrebreather facemask and tolerate his diet. He is taking approximately 50% of his diet provided. He remains on IV Solu-Medrol. He remains on long-term articulation with Xarelto. LDH and CRP are being monitored. The levels were quite elevated and the LDH today's 2785 and the CRP is 11.3. The BUN is a 54 with a creatinine of 1.09. Electrolytes are normal, d-dimer is at 6.88, and the CBC showing a white cell count of 15.8 with a hemoglobin of 13.7. No confusion. No altered mentation. Fluid balance is in order of -2.4 L. He is getting Lasix 40 mg IV every 24 hours. No other significant events overnight A 2020 the patient is being seen for a follow-up. Currently he is on a combination of high flow oxygen 6 L with an FiO2 of 90% and the same time the patient is on a nonrebreather facemask 100%. Pulse ox is currently ranging between 80% up to 88% and it fluctuates. Overnight, he became slightly more restless and agitated. He pulled on his masks and he became briefly hypoxic and had to be placed again. As stated, his overall respiratory status quite borderline. He is a case of Covid 19 related pneumonia. On IV Solu-Medrol 60 mg every 6 hours. In terms of his inflammatory markers today, the patient's LDH level is up to 3174 and his CRP level is also at 5.9. D-dimer is at 11.45. He is on anticoagulation and is receiving Xarelto on a daily basis . His chest x- ray is showing limited by system place, change compared to yesterday. On examination, he has adequate air entry bilaterally. His fluid balance over the past 24 hours has been in the order of -2.4 L and the patient is diuresing adequately. His body weight is also on the decline. His blood work today shows a BUN of 54 with a creatinine of 1.09 and the sodium level is at 139. His white cell count 15.8 with hemoglobin 13.7 and a adequate platelet count of 239. No other significant events otherwise for now. Active issue remains is ongoing respiratory insufficiency and high oxygen requirements. The patient is seen today 10/19/2020 in follow-up in the intensive care unit. He is currently sitting up in bed. Awake and alert in no acute distress. He is still requiring airflow high flow oxygen at 15 L/m and 90% FiO2 along with a nonrebreather mask to maintain O2 saturations in the high 80s low 90s. He did receive Tocilizumab. He is currently on Solu-Medrol 60 mg every 6 hours, bronchodilators. Anticoagulated with Xarelto. Receiving IV diuretics. Remains in a negative balance. Chest x-ray continues to show bilateral patchy infiltrates. No evidence of pneumothorax. White count 19.1. Hemoglobin 14.1. D-dimer 11.6. Sodium 137. Potassium 4.4. Creatinine 1.0. LDH 2962. C- reactive protein 5.4. The patient is seen today 10/20/2020 in follow-up in the intensive care unit. He is currently sitting up in bed. Awake and alert in no acute distress. He is still very weak and fatigued. He has very little reserve. Any little movement decreases his oxygen saturations. He is currently on AirVo high flow oxygen at 60 L and 90% FiO2 along with a nonrebreather mask. He's been on IV Solu-Medrol 60 every 6, Xarelto, bronchodilators. Received tocilizumab. Chest x-ray continues to show bilateral interstitial infiltrates with trace effusions. He remains on IV diuretics.. Plan to add Zosyn. Pro-calcitonin pending. White count up to 21.3. Hemoglobin 14.3. Sodium 136. Potassium 4.5. Creatinine 1.07. C-reactive protein less than 5.0. The patient is seen today 10/21/2020 in follow-up in the intensive care unit. He is currently awake and alert in no acute distress. Resting fairly comfortably in bed. Still quite fatigued and weak. Slightly better today compared to yesterday. Remains on AirVo high flow oxygen at 60 L and 90% FiO2 and a nonrebreather mask to maintain O2 saturation in the low to mid 80s. He's been afebrile. White count 27.3. Hemoglobin 15.0. D-dimer 9.89. Sodium 138. Potassium 4.6. Creatinine 1.11. LDH 2774. C-reactive protein less than 5.0. He's been on IV Solu-Medrol 60 every 6, Xarelto, bronchodilators. Received tocilizumab. Chest x-ray shows some worsening left lung infiltrate. Bibasilar patchy infiltrates. He was initiated on Zosyn. Procalcitonin 0.09. He remains on daily IV Lasix. Currently in a negative balance. Patient was reevaluated today on 10/22/2020, remains in the ICU, looks frail and chronically ill, looks weak, remains on high flow oxygen via airvo he is on 80% which was increased earlier to 90% and he is also on 60 L flow. After evaluating the patient today, I transitioned the patient to BiPAP, 100% FiO2 with IPAP of 14 EPAP of 16. Chest x-ray continues to show bilateral interstitial infiltrates, not much of a change in the last few days. ABG earlier on 80% FiO2 showed a pO2 of 45 pCO2 of 35 pH of 7.47. Clinically, the patient is comfortable, does not seem to be in distress, and I am not planning to proceed to intubation and mechanical ventilation at least not at this point. However if his condition gets clinically worse, would definitely recommend intubation and mechanical ventilation. Basic metabolic profile today is relatively normal BUN is 64 creatinine 1.17. His inflammatory markers remained relatively elevated. LDH is 2416, C-reactive protein is 5.1 WBC count is 22.7 hemoglobin is 14.3. Patient remains on Solu-Medrol, Xarelto, bronchodilators, and he received actemra. He also remains on Zosyn empirically. Patient was reevaluated today on 10/23/2020, patient remains remains on BiPAP, with IPAP of 14 EPAP of 6, 60% FiO2. Remains on Xarelto, his overall clinical status is marginal at best. Patient had an episode of confusion yesterday as he went to the bathroom, and he pulled his PICC line, a right femoral line was placed by Dr. Ramos shortly after. Patient is generally weak, lethargic, but arousable, follows simple instructions, and he tells me that he feels fine ABC showed leukocytosis with WBC of 24.3 hemoglobin is 14.7 and at rest are normal BUN is 73 creatinine 1.34. Liver enzymes are relatively elevated. Chest x-ray continues to show bilateral interstitial opacities with a small tiny trace of right-sided pleural effusion Reevaluated today , patient is basically about the same. Remains on BiPAP with the same settings as above, FiO2 was cut down to 55%. He is on IPAP of 14 and EPAP of 6. Remains on the Covid 19 cocktails. No major change in the last 24 hours Liver enzymes remain borderline elevated. D-dimer is 5.49. Electrolytes are normal except for elevated sodium and chloride. BUN is 75 creatinine is 1.28. W a count is 21.6 hemoglobin is 14.3. The patient is seen today 10/25/2020 in follow-up in the intensive care unit. He remains on BiPAP 14/6 and 55% FiO2. He is somewhat more obtunded today. Difficult to arouse. But able to wake up enough to take his medications. His knees are somewhat mottled. He is maintaining O2 saturations in the low 90s. He has 0.9 normal saline at 50 MLS per hour. Remains on IV Solu-Medrol, bronchodilators, Xarelto. White count 20.7. Hemoglobin 13.9. Lymphocytes 0.2. Sodium 157. Potassium 4.4. Creatinine 1.51. Progress note dated 10/24/2020. This is a 71-year-old male who was admitted to the hospital on October 09. He came in with a diagnosis of COVID 19 pneumonia. The patient was transferred to the intensive care unit on October 15. Currently, the patient remains on BiPAP, settings of IPAP 14, EPAP 6, and 55%. The patient's also getting D5W to 150 mL an hour. He did receive 2 doses of TOCI. Unfortunately, the patient has pulled out all his IVs including 2 central lines. A PICC line will be placed today so he can get nutrition. White count 23,000, hemoglobin 11.9, hematocrit 34.8, platelet count 138,000. PT 14, INR 1.4, PTT is 20.7, and d-dimer is 3.74. Sodium is down to 150 from 157, potassium 4.2, chlorides 118, CO2 26, anion gap 6, BUN 95, creatinine 1.94. LDH is 9. Ferritin is 2227. Chest x-ray continues to show bilateral interstitial patchy infiltrates, and a pneumatocele in the right midlung. Progress note dated 10/27/2020. 71-year-old male, admitted to the hospital on October 09. He came in with a diagnosis of COVID 19 pneumonia. Currently, he is on AIRVO, settings of 55 L/m flow, FiO2 of 55%. Saturations are in the low 90s. Is getting D5W at 150 mL an hour, and TPN at 30 mL an hour. His sodium is down to 145. In addition, he received Haldol last night, 8 mg IV. He had a right upper extremity double- lumen PICC line placed yesterday. The arterial line to be discontinued as is nonfunctional. Other than that, the patient is doing about the same. White count 14.4, he will be 10.2, hematocrit 30.6, platelet count 104,000. Sodium 145, potassium 4.4, chlorides 115, CO2 22, anion gap 8, BUN 112, creatinine 2.12. Chest x-ray from October 27, is unchanged. The patient is seen today 10/28/2020 in follow-up in the intensive care unit. He is currently resting fairly comfortably in bed. Remains on AirVo high flow oxygen at 55 L/m and 55% along with a nonrebreather mask. O2 saturations remaining in the low 90s. He is currently being nourished with TPN at 50 MLS per hour, D5 W at 50 mL per hour. White count 15.1. Hemoglobin 9.9. Platelets 97. D-dimer 2.83. Sodium 145. Potassium 4.0. Creatinine 1.88. Remains on bronchodilators, IV Solu-Medrol, Xarelto. More calm and cooperative today. Objective - Vital Signs Vital signs: Vital Signs Temp 98.4 F 10/28/20 12:00 Pulse 97 10/28/20 12:00 Resp 30 H 10/28/20 12:00 BP 118/56 10/28/20 12:00 Pulse Ox 95 10/28/20 12:00 Intake & Output 10/27/20 10/28/20 10/28/20 18:59 06:59 18:59 Intake Total 1709 1200 900 Output Total 570 870 520 Balance 1139 330 380 Weight 109.2 kg 109.2 kg Intake: IV 1509 1200 600 Dextrose 5% in Water 1, 1000 600 300 000 ml @ 50 mls/hr IV . Q20H [facility] Rx#:[id number] Mvi, Adult No.4 with Vit 300 K 10 ml Trace (Conc-1Ml/ Dose) 1 ml In Amino Acid 5%-D15w 1,000 ml @ 30 mls /hr IV .Q24H [facility]ANCES Rx#: [id number] Mvi, Adult No.4 with Vit 100 600 300 K 10 ml Trace (Conc-1Ml/ Dose) 1 ml In Amino Acid 5%-D15w 1,000 ml @ 50 mls /hr IV .[id number] [facility]ANC[facility] Rx#: [id number] levETIRAcetam IV 500 mg 100 In Sodium Chloride 0.9% 100 ml @ 400 mls/hr IVPB Q12HR [facility] Rx#:[id number] pressure bag NS 9 Intake, IV Titration 100 Amount levETIRAcetam IV 500 mg 100 In Sodium Chloride 0.9% 100 ml @ 400 mls/hr IVPB Q12HR [facility] Rx#:[id number] Oral 200 200 Output: Urine 570 870 520 Other: Voiding Method Indwelling Catheter Indwelling Catheter Indwelling Catheter # Bowel Movements 0 1 ABP, PAP, CO, CI - Last Documented Arterial Blood Pressure 69/48 - Exam GENERAL EXAM: Drowsy, arousable, pleasant 70-year-old gentleman, on AirVo at 55 L and 55% FiO2 with a nonrebreather mask, comfortable in no apparent distress. HEAD: Normocephalic. EYES: Normal reaction of pupils, equal size. NOSE: Clear with pink turbinates. THROAT: No erythema or exudates. NECK: No masses, no JVD. CHEST: No chest wall deformity. LUNGS: Equal air entry with few scattered rhonchi, crackles in the bases. CVS: S1 and S2 normal with no audible murmur, regular rhythm. ABDOMEN: No hepatosplenomegaly, normal bowel sounds, no guarding or rigidity. SPINE: No scoliosis or deformity SKIN: No rashes CENTRAL NERVOUS SYSTEM: No focal deficits, tone is normal in all 4 extremities. EXTREMITIES: There is no peripheral edema. No clubbing, no cyanosis. Peripheral pulses are intact. - Labs CBC & Chem 7: 10/28/20 04:19 10/28/20 04:19 Labs: Abnormal Lab Results - Last 24 Hours (Table) 10/27/20 10/27/20 10/27/20 Range/Units 16:53 19:54 20:28 WBC (3.8-10.6) k/uL RBC (4.30-5.90) m/uL Hgb (13.0-17.5) gm/dL Hct (39.0-53.0) % Plt Count (150-450) k/uL Neutrophils # (Manual) (1.3-7.7) k/uL Lymphocytes # (Manual) (1.0-4.8) k/uL Metamyelocytes # (Man) (0) k/uL Nucleated RBCs (0-0) /100 WBC Fibrinogen (200-500) mg/dL D-Dimer (<0.60) mg/L FEU Chloride (98-107) mmol/L BUN (9-20) mg/dL Creatinine (0.66-1.25) mg/dL Glucose (74-99) mg/dL POC Glucose (mg/dL) 153 H 159 H (75-99) mg/dL Calcium (8.4-10.2) mg/dL Magnesium (1.6-2.3) mg/dL Ferritin (22.0-322.0) ng/mL Total Bilirubin (0.2-1.3) mg/dL AST (17-59) U/L ALT (4-49) U/L Creatine Kinase (55-170) U/L Total Protein (6.3-8.2) g/dL Albumin (3.5-5.0) g/dL Urine Protein Trace H (Negative) Urine Bacteria Rare H (None) /hpf Urine Mucus Rare H (None) /hpf 10/27/20 10/28/20 10/28/20 Range/Units 21: 04: 04:19 WBC (3.8-10.6) k/uL RBC (4.30-5.90) m/uL Hgb (13.0-17.5) gm/dL Hct (39.0-53.0) % Plt Count (150-450) k/uL Neutrophils # (Manual) (1.3-7.7) k/uL Lymphocytes # (Manual) (1.0-4.8) k/uL Metamyelocytes # (Man) (0) k/uL Nucleated RBCs (0-0) /100 WBC Fibrinogen 155 L (200-500) mg/dL D-Dimer 2.83 H (<0.60) mg/L FEU Chloride (98-107) mmol/L BUN (9-20) mg/dL Creatinine (0.66-1.25) mg/dL Glucose (74-99) mg/dL POC Glucose (mg/dL) 168 H (75-99) mg/dL Calcium (8.4-10.2) mg/dL Magnesium (1.6-2.3) mg/dL Ferritin 1385.2 H (22.0-322.0) ng/mL Total Bilirubin (0.2-1.3) mg/dL AST (17-59) U/L ALT (4-49) U/L Creatine Kinase 479 H (55-170) U/L Total Protein (6.3-8.2) g/dL Albumin (3.5-5.0) g/dL Urine Protein (Negative) Urine Bacteria (None) /hpf Urine Mucus (None) /hpf 10/28/20 10/28/20 10/28/20 Range/Units 04:19 04:19 06:37 WBC 15.1 H (3.8-10.6) k/uL RBC 2.98 L (4.30-5.90) m/uL Hgb 9.9 L (13.0-17.5) gm/dL Hct 29.0 L (39.0-53.0) % Plt Count 97 L (150-450) k/uL Neutrophils # (Manual) 14.30 H (1.3-7.7) k/uL Lymphocytes # (Manual) 0.30 L (1.0-4.8) k/uL Metamyelocytes # (Man) 0.15 H (0) k/uL Nucleated RBCs 1 H (0-0) /100 WBC Fibrinogen (200-500) mg/dL D-Dimer (<0.60) mg/L FEU Chloride 115 H (98-107) mmol/L BUN 100 H (9-20) mg/dL Creatinine 1.88 H (0.66-1.25) mg/dL Glucose 201 H (74-99) mg/dL POC Glucose (mg/dL) 203 H (75-99) mg/dL Calcium 7.9 L (8.4-10.2) mg/dL Magnesium 3.0 H (1.6-2.3) mg/dL Ferritin (22.0-322.0) ng/mL Total Bilirubin 3.8 H (0.2-1.3) mg/dL AST 116 H (17-59) U/L ALT 279 H (4-49) U/L Creatine Kinase (55-170) U/L Total Protein 5.2 L (6.3-8.2) g/dL Albumin 2.6 L (3.5-5.0) g/dL Urine Protein (Negative) Urine Bacteria (None) /hpf Urine Mucus (None) /hpf 10/28/20 Range/Units 11:28 WBC (3.8-10.6) k/uL RBC (4.30-5.90) m/uL Hgb (13.0-17.5) gm/dL Hct (39.0-53.0) % Plt Count (150-450) k/uL Neutrophils # (Manual) (1.3-7.7) k/uL Lymphocytes # (Manual) (1.0-4.8) k/uL Metamyelocytes # (Man) (0) k/uL Nucleated RBCs (0-0) /100 WBC Fibrinogen (200-500) mg/dL D-Dimer (<0.60) mg/L FEU Chloride (98-107) mmol/L BUN (9-20) mg/dL Creatinine (0.66-1.25) mg/dL Glucose (74-99) mg/dL POC Glucose (mg/dL) 205 H (75-99) mg/dL Calcium (8.4-10.2) mg/dL Magnesium (1.6-2.3) mg/dL Ferritin (22.0-322.0) ng/mL Total Bilirubin (0.2-1.3) mg/dL AST (17-59) U/L ALT (4-49) U/L Creatine Kinase (55-170) U/L Total Protein (6.3-8.2) g/dL Albumin (3.5-5.0) g/dL Urine Protein (Negative) Urine Bacteria (None) /hpf Urine Mucus (None) /hpf Assessment and Plan Assessment: 1 Acute on chronic hypoxic respiratory failure secondary to acute CoVID 19 pneumonia and remains BiPAP 14/6 and 55% FiO2. He received Tocilizumab 2 Elevated inflammatory markers secondary to above 3 Acute on chronic renal failure 4 Chronic hypoxic respiratory failure secondary to chronic obstructive pulmonary disease on home O2 at 2 L/m 5 Former smoker 6 History of coronary disease 7 Hyperlipidemia 8 Hypertension 9 History of PE/DVT anticoagulate with Xarelto 10 History of depression 11 Obstructive sleep apnea utilizing CPAP 12 History of peripheral vascular disease 13 BPH Plan: The patient was seen and evaluated by Dr. Ramos Chest x-ray and labs reviewed Continue IV Solu-Medrol 60 mg every 6 hours. Already received Tocilizumab x2 . Anticoagulated with Xarelto Continue TPN for nutritional support Condition guarded We will continue to follow Critical care time 35 minutes I, the cosigning physician, performed a history & physical examination of the patient. Lungs sounds with few scattered rhonchi, crackles in the bilateral posterior bases. Maintaining good O2 saturations in the 90s on AirVo high flow at 55L/min, 55% Fio2 along with a nonrebreather mask. I discussed the assessment and plan of care with my nurse practitioner, Kandis Afshin. I attest to the above note as dictated by her.
--- NOTE | 2020-10-28 13:46 | P.PN ---
Subjective Progress Note Date: 10/28/20 HISTORY OF PRESENT ILLNESS This is a 70 years old male patient of Dr. Polo with past medical history of pulmonary embolism diagnosed in [place] 2 years ago, history of lower extremity DVT, coronary artery disease no stent, history of heart failure unknown if systolic or diastolic, COPD, hyperlipidemia, hypertension, osteoarthritis, prostate cancer, skin disorder,'s obstructive sleep apnea on CPAP, subclavian steal syndrome with stent placement, history of recent penile implant on 07/27/2016. Patient has chronic shortness of breath that has been going on for the past 2 years since the diagnosis of pulmonary embolism with O2 requirements at 2 L nasal cannula Patient is currently on maintenance dose of xarelto at 10 mg daily. He presents emergency room secondary to worsening dyspnea, x 7 days without any medical intervention prior to this, He was seen in the Emergency room for the shortness of breath, worsening dyspnea and exertion, and was found to be SARS cov 2 positive. Chest x-ray, shows bilateral pulmonary interstitial infiltrates compared to old exam, with a similar atelectasis. Poor inspiration, no hilar masses laboratory shows hemoglobin of 12.9, WBC count of 7, creatinine of 1.47, iron of 1.2, glucose 120 CRP 88, pro-calcitonin slightly elevated 0.22. Patient denies any chronic prednisone exposure, Consult were made with pulmonary, Dr. Ramos, pulse oximetry would be 9 PT 1697 at 2-3 L nasal cannula, blood pressure of 129/66. 10/11: Patient was seen for follow-up today, he is a little bit tachypnea, very small amount of labored breathing only on exertion, no conversational dyspnea, O2 at 2 L, sats 95%, no clearance from pulmonary medicine are stable were rounding today, no cough, no pleurisy, no chest pain no palpitations, creatinine at 1.5 today, electrolytes are normal, wbc of 4.7, LDH of 784, ferritin 533 patient is on IV dexamethasone maintained on Xarelto, no new treatment from pulmonary critical care today, currently stable 10/12: A-Team is called during the night due to hypoxia and patient was started on AirVo. Respiratory rate is been in the 40s, heart rate 74, afebrile, pulse ox 96%. Chest x-ray from yesterday revealed patchy. Hilar and basilar infiltrates persist and have progressed slightly in the interval. Repeat blood work reveals WBC 6.8, hemoglobin 12.4, platelet count 135. LDH 1228. C- reactive protein 85.1. The patient has developed increasing difficulty with breathing. He denies having any chest pain. He states he could not sleep through the night. 10/13: Patient states that his breathing status is about the same as yesterday or little bit more difficult. He denies any coughing up blood. He denies any abdominal pain, nausea or vomiting, no diarrhea. Patient remains on Arava with pulse ox of 88-90%. Afebrile, heart rate 69, respiratory rate 40, blood pressure 137/76. Patient is status post 2 doses of Tocilizumab. patient is followed closely by pulmonary medicine. 10/14: Patient is currently on AirVo and nonrebreather but states that he is feeling better today and that his breathing is better. He has been afebrile, heart rate 72, respiratory rate 36, blood pressure 130/70, pulse ox 90%. He denies having abdominal pain, nausea vomiting or diarrhea. He remains on Solu- Medrol 60 mg IV every 6 hours. 10/15: Patient was transferred to the ICU per Dr. Wright. He is currently on AirVo only at time of evaluation and is eating his breakfast. Patient has been maintained on Arava plus nonrebreather. His breathing status appears to be improved from yesterday. His pulse ox is 88%. Afebrile, heart rate 76, respiratory rate 25, blood pressure 131/81. Repeat chest x-ray reveals stable chest. Repeat blood work reveals normal CBC. D-dimer 1.85. C-reactive protein 29. LDH is pending. Ferritin level 1340.6. Patient is scheduled for PICC line insertion today. Lasix 40 mg IV push ordered today by pulmonary medicine. Patient is continued on Solu-Medrol 60 mg every 6 hours. Patient not receiving any antibiotics at this time. 10/16: Patient remains in the intensive care unit. He was off nonrebreather and only on AirVo yesterday most of the day. Now he is on both AirVo and nonrebreather and taking the nonrebreather on and off as he needs it. He is eating 50% of his meals. He has been afebrile, heart rate 69, respiratory rate 34, blood pressure 142/80, pulse ox 88% on both AirVo and nonrebreather. Repeat blood work reveals W BC 13.5, hemoglobin 13.6, platelet count 247. Electrolytes normal. BUN 52 and creatinine 1.2. Blood sugars running between 120 975. Total bilirubin 1.0, AST 111, ALT 137, alkaline phosphatase 80. C-reactive p rotein 16.3, CK 65. Repeat chest x-ray reveals bilateral lower lobe infiltrate and small effusion with coarsened interstitium correlate for venous congestion versus interstitial pneumonia. Patient surprisingly feels his breathing is stable. He has no new complaints. 10/17: Patient remains in intensive care unit. He has been off the nonrebreather for the past hour and a half with only AirVo with pulse ox in the high 80s. He has been afebrile, heart rate in the 70s, blood pressure 142/86, respiratory rate in 30s. Patient verbalizes that his breathing status is improving. Repeat blood work reveals WBC 15.8, hemoglobin 13.7, platelet count 239. Electrolytes normal. BUN 54 and creatinine 1.09. Blood sugars running between 120 765. Total bilirubin 1.5, AST 195, ALT 304, alkaline phosphatase 92, LDH 2785. CK 51, C-reactive protein 11.3. Repeat chest x-ray reveals mild interval pro gression in the lung infiltrates within the right lung. Left lung is stable. No change in small bilateral pleural effusions. 10/18: Patient remains in intensive care unit. He is seen today on AirVo and nonrebreather and pulse ox has been marginal in the low to mid 80s. Heart rate is in the 70s, respiratory rate in the 30s, blood pressure 136/87. He has been afebrile. Repeat blood work reveals WBC 18.4. Electrolytes normal, BUN 59 and creatinine 1.03. Blood sugars running between 126 and 166. Ferritin level 1817. D-dimer 11.45. Total bilirubin 1.7, AST 128, ALT 309, alkaline phosphat ase 121. LDH 3174. CK 98, C-reactive protein 5.9. Repeat chest x-ray reveals left perihilar and basilar infiltrates persist 10/19: Patient's breathing status remains about the same. He has been afebrile, heart rate 70s, respiratory rate 29, blood pressure 143/87. Pulse ox is running mid to high 80s with nonrebreather and high flow nasal cannula. WBC 19.1, hemoglobin 14.1, platelet count 247. D-dimer 11.64. Electrolytes normal. BUN 55 and creatinine 1.05. Blood sugars running between 124 and 197. Ferritin 1583. Total bilirubin 1.4, AST 99, ALT 266, alk phos was 123. LDH 2962. C-re active protein 5.4. Repeat chest x-ray shows no pneumothorax. Interstitial and patchy bilateral infiltrates. 10/20: Patient remains in the intensive care unit and he is currently on nonrebreather and high flow nasal cannula. Pulse ox is running 86-91%. He has been afebrile, heart rate in the 70s, respiratory rate 29, blood pressure 145/81. WBC 21.3. Sodium 136, BUN 57 and creatinine 1.07. Blood sugars running between 100 3459. Ferritin level 1616. Total bilirubin 1.8, AST 87, ALT 262, alkaline phosphatase 131. C-reactive protein normal at less than 5. Repeat chest x-ray reveals relatively stable with interstitial infiltrates and possible trace effusions. 10/21:patient remains in the intensive care unit. He is on Arava oh and nonrebreather with pulse ox in the mid 80s. Patient has been afebrile.Heart rate in the 70s and 60s, respiratory rate in the mid to high 20s, pulse ox a nywhere between 81-89%, blood pressure 119/81. WBC 27.3, hemoglobin 15, platelet count 202. Electrolytes normal, BUN 61 and creatinine 1.11. Blood sugars running between 141 and 158. Ferritin level 1639, total bilirubin 2.0, AST 104, ALT 296, alkaline phosphatase 136. LDH 2774. C-reactive protein less than 5. Patient is continued on Zosyn, IV Solu-Medrol heart rate in the 60s and 70s, respiratory rate in the 20s n and IV Lasix. 10/22: Patient remains in the intensive care unit currently on BiPAP. Patient had some increased anxiety this morning was given Xanax and was lethargic following with desats and subsequently placed on BiPAP. He's been running high 90s for pulse ox. He's been afebrile, heart rate in the 70s, respiratory rate in the 20s to 30s, blood pressure 125/91. Repeat blood work reveals W BC 22.7, hemoglobin 14.3, platelet count 173. Electrolytes are normal except for CO2 of 31, BUN 64 and creatinine 1.17. Ferritin 1475.9. Total bilirubin 2.3, AST 88, ALT 281, alkaline phosphatase 133. LDH 2416. Blood sugars running between 144 and 158. Repeat chest x-ray reveals mild diffuse increased lung opacities. Patient is continued on Zosyn, Solu-Medrol. Patient may require intubation. 10/23: The patient remains on BiPAP with pulse ox between 86 and 92 with FiO2 of 60%, respiratory rate anywhere between 28 and 40, heart rate in the 80s, afebrile. Patient is getting tired and fatigued. He actually pulled his PICC line out and arterial line and femoral triple-lumen catheter was placed. Repeat chest x-ray reveals similar diffuse bilateral interstitial opacities. Possible trace right effusion. Patient's mental status is stable today. He did have some mild confusion and lethargy yesterday. WBC 24.3. BUN 73 and creatinine 1.34. Blood sugars running between 140 154. Total bilirubin 3.1, AST 117, ALT 329, alkaline phosphatase 137. 10/26: Patient remains in the intensive care unit on BiPAP. Pulse ox is 89-93% on BiPAP of 55% FiO2. Respiratory rate in the 30s, afebrile, heart rate in the 80s and 90s, blood pressure 101/69. Repeat blood work reveals W BC 23.0, hemoglobin 11.9, platelet count 138. INR is 1.4. D-dimer 3.7 following her. Sodium 150, potassium 4.2, chloride 118, CO2 26, BUN 95 and creatinine 1.94. Blood sugars running between 124 and 214. Total bilirubin 3.8, AST 132, ALT 407, alkaline phosphatase 83. LDH 2059. CK 272. Patient's IV fluids were switched to D5 yesterday at 150 mL per hour and IV Lasix was discontinued with improvement of his sodium. Patient pulled out his central line. Prognosis is guarded. 10/27: Patient is afebrile, heart rate 96, respiratory rate 27, blood pressure 120/72, pulse ox 90-95 percent on AirVo with FiO2 of 70%. Patient was decreased to 55% and he seems to be desats into the low 80s. Repeat blood work reveals WBC 14.4, hemoglobin 10.3, platelet count 104. Sodium 145, potassium 4.5, chloride 115, CO2 22, BUN 112 and creatinine 2.12. Blood sugars running between 186 and 290. Phosphorus 5.2, magnesium 3.2, total bilirubin 3.4, AST 97, ALT 310, alkaline phosphatase 75. C-reactive protein 6.4. Patient has been started on TPN. 10/28: She remains on AirVo with pulse ox in the low 90s, he has soft restraints in place, mild confusion. Patient has been afebrile, heart rate 96, blood pressure 122/66. Respiratory rate 20-30. Repeat blood work reveals WBC 15.1, hemoglobin 9.9, platelet count 97. D-dimer 2.83. BUN 100 and creatinine 1.88. Magnesium 3.0. Ferritin 1385, AST 116, ALT 279, alkaline phosphatase 83, CK 479. Repeat chest x-ray reveals scattered interstitial infiltrates persist. Patient has been seen by nephrology with recommendations to decrease IV fluids, DC phosphorus and TPN. Renal ultrasound revealed nonvisualization of the left kidney. Right kidney demonstrates no evidence of hydronephrosis or nephrolithiasis. Cortical thinning suggest chronic medical renal disease. REVIEW OF SYSTEMS Constitutional: Denies fever, no chills, no night sweats. Generalized weakness, reports fatigue. EENT: No headache. No dizziness. No nasal drainage or congestion. No sore throat. Lungs: Reports shortness of breath, reports cough, no sputum production. No wheezing. reports dyspnea with exertion. Cardiovascular: No chest pain, no lower extremity edema. No palpitations. No paroxysmal nocturnal dyspnea. No orthopnea. No lightheadedness or dizziness. No syncopal episodes. Abdominal: No abdominal pain. No nausea, vomiting. No diarrhea. No constipation. No bloody or tarry stools reports loss of appetite. Genitourinary: No dysuria, increased frequency, urgency. No urinary retention. Musculoskeletal: No myalgias. Reports muscle weakness, no gait dysfunction, no frequent falls. No back pain. No neck pain. Integumentary: No wounds, no lesions. No rash or pruritus. No unusual bruising. High flow nasal cannula Neurologic: No aphasia. No facial droop. No change in mentation. No head injury. No headache. Psychiatric: No depression. No anxiety. No mood swings. Reports insomnia. Endocrine: Noted abnormal blood sugars. No weight change. PHYSICAL EXAMINATION Gen: This is a 70-year-old male. He is resting in ICU bed and appears to be fatigued. Patient is on AirVo. HEENT: Head is atraumatic, normocephalic. Pupils equal, round. Sclerae is anicteric. NECK: Supple. No JVD. No lymphadenopathy. No thyromegaly. LUNGS: Few scattered rhonchi and scattered expiratory wheezing. Mild intercostal retractions. HEART: Regular rate and rhythm. No murmur. ABDOMEN: Soft. Bowel sounds are present. No masses. No tenderness. EXTREMITIES: No pedal edema. No calf tenderness. Dorsalis pedis palpable bilaterally. NEUROLOGICAL: Patient is awake, alert and oriented x3. Cranial nerves 2 through 12 are grossly intact. ASSESSMENT AND PLAN 1. Acute SARS COV2, infection with acute hypoxic respiratory failure. Continue current management per pulmonary medicine. Continue Solu-Medrol 40 mg every 12 hours, albuterol inhaler as needed, Symbicort inhaler twice daily. Continue vitamin D. Patient is status post 2 doses of Tocilizumab. Continue Incentive spirometry. Patient may require intubation. Monitor inflammatory markers. 2. Thrombocytopenia secondary to COVID 19 infection. Continue to monitor. 3. Acute kidney injury secondary to dehydration, poor oral intake. Continue to monitor renal function. Consult with nephrology appreciated. Ultrasound as above. 4. Chronic anticoagulation, secondary to history of DVT. Continue Xarelto. 5. History of DVT of the right leg in December 2013, resolved on Lasix 40 mg daily, 6. COPD. Continue albuterol- Atrovent as needed . Continue Symbicort twice daily 7. Hyperlipidemia. Continue Crestor daily. 8. Subclavian steal syndrome status post stent in the right carotid. 9. Benign prostatic hypertrophy. Monitor for urinary retention. Continue Flomax daily 10. History of coronary artery disease with previous myocardial infarction. 11. Obstructive Sleep apnea. Patient to continue his own CPAP machine. 12. Gastroesophageal reflux disease and gastric intestinal prophylaxis. Continue Nexium or equivalent. 13. Hypertension. Continue bystolic 10 mg daily . Hold aldactone. 14. Depression. Continue Cymbalta 150 mg twice daily. 15. History of ADHD. Strattera on hold. 16. Chronic kidney disease stage III, stable 17. Chronic systolic heart failure and ischemic cardiomyopathy with prior ejection fraction 40%. Continue aspirin 81 mg metoprolol 18. Hyperglycemia secondary to steroids and TPN. Patient placed on Levemir 12 units daily along with NovoLog scale. CODE STATUS full code Prognosis guarded. DISCHARGE PLAN TBD. Impression and plan of care have been directed as dictated by the signing physician. Nena Frausto nurse practitioner acting as scribe for signing physician. Objective - Vital Signs Vital signs: Vital Signs Temp 98.9 F 10/28/20 08:00 Pulse 93 10/28/20 10:00 Resp 15 10/28/20 10:00 BP 132/79 10/28/20 10:00 Pulse Ox 94 L 10/28/20 10:00 Intake & Output 10/27/20 10/28/20 10/28/20 18:59 06:59 18:59 Intake Total 1709 1200 500 Output Total 570 870 200 Balance 1139 330 300 Weight 109.2 kg Intake: IV 1509 1200 300 Dextrose 5% in Water 1, 1000 600 150 000 ml @ 50 mls/hr IV . Q20H [facility] Rx#:[id number] Mvi, Adult No.4 with Vit 300 K 10 ml Trace (Conc-1Ml/ Dose) 1 ml In Amino Acid 5%-D15w 1,000 ml @ 30 mls /hr IV .Q24H [facility] Rx#: [id number] Mvi, Adult No.4 with Vit 100 600 150 K 10 ml Trace (Conc-1Ml/ Dose) 1 ml In Amino Acid 5%-D15w 1,000 ml @ 50 mls /hr IV .[id number] [facility] Rx#: [id number] levETIRAcetam IV 500 mg 100 In Sodium Chloride 0.9% 100 ml @ 400 mls/hr IVPB Q12HR [facility] Rx#:[id number] pressure bag NS 9 Intake, IV Titration 100 Amount levETIRAcetam IV 500 mg 100 In Sodium Chloride 0.9% 100 ml @ 400 mls/hr IVPB Q12HR [facility] Rx#:[id number] Oral 200 100 Output: Urine 570 870 200 Other: Voiding Method Indwelling Catheter Indwelling Catheter Indwelling Catheter # Bowel Movements 0 1 ABP, PAP, CO, CI - Last Documented Arterial Blood Pressure 69/48 - Labs CBC & Chem 7: 10/28/20 04:19 10/28/20 04:19 Labs: Abnormal Lab Results - Last 24 Hours (Table) 10/27/20 10/27/20 10/27/20 Range/Units 16:53 19:54 20:28 WBC (3.8-10.6) k/uL RBC (4.30-5.90) m/uL Hgb (13.0-17.5) gm/dL Hct (39.0-53.0) % Plt Count (150-450) k/uL Neutrophils # (Manual) (1.3-7.7) k/uL Lymphocytes # (Manual) (1.0-4.8) k/uL Metamyelocytes # (Man) (0) k/uL Nucleated RBCs (0-0) /100 WBC Fibrinogen (200-500) mg/dL D-Dimer (<0.60) mg/L FEU Chloride (98-107) mmol/L BUN (9-20) mg/dL Creatinine (0.66-1.25) mg/dL Glucose (74-99) mg/dL POC Glucose (mg/dL) 153 H 159 H (75-99) mg/dL Calcium (8.4-10.2) mg/dL Magnesium (1.6-2.3) mg/dL Total Bilirubin (0.2-1.3) mg/dL AST (17-59) U/L ALT (4-49) U/L Creatine Kinase (55-170) U/L Total Protein (6.3-8.2) g/dL Albumin (3.5-5.0) g/dL Urine Protein Trace H (Negative) Urine Bacteria Rare H (None) /hpf Urine Mucus Rare H (None) /hpf 10/27/20 10/28/20 10/28/20 Range/Units 21:22 04:19 04:19 WBC (3.8-10.6) k/uL RBC (4.30-5.90) m/uL Hgb (13.0-17.5) gm/dL Hct (39.0-53.0) % Plt Count (150-450) k/uL Neutrophils # (Manual) (1.3-7.7) k/uL Lymphocytes # (Manual) (1.0-4.8) k/uL Metamyelocytes # (Man) (0) k/uL Nucleated RBCs (0-0) /100 WBC Fibrinogen 155 L (200-500) mg/dL D-Dimer 2.83 H (<0.60) mg/L FEU Chloride (98-107) mmol/L BUN (9-20) mg/dL Creatinine (0.66-1.25) mg/dL Glucose (74-99) mg/dL POC Glucose (mg/dL) 168 H (75-99) mg/dL Calcium (8.4-10.2) mg/dL Magnesium (1.6-2.3) mg/dL Total Bilirubin (0.2-1.3) mg/dL AST (17-59) U/L ALT (4-49) U/L Creatine Kinase 479 H (55-170) U/L Total Protein (6.3-8.2) g/dL Albumin (3.5-5.0) g/dL Urine Protein (Negative) Urine Bacteria (None) /hpf Urine Mucus (None) /hpf 10/28/20 10/28/20 10/28/20 Range/Units 04:19 04:19 06:37 WBC 15.1 H (3.8-10.6) k/uL RBC 2.98 L (4.30-5.90) m/uL Hgb 9.9 L (13.0-17.5) gm/dL Hct 29.0 L (39.0-53.0) % Plt Count 97 L (150-450) k/uL Neutrophils # (Manual) 14.30 H (1.3-7.7) k/uL Lymphocytes # (Manual) 0.30 L (1.0-4.8) k/uL Metamyelocytes # (Man) 0.15 H (0) k/uL Nucleated RBCs 1 H (0-0) /100 WBC Fibrinogen (200-500) mg/dL D-Dimer (<0.60) mg/L FEU Chloride 115 H (98-107) mmol/L BUN 100 H (9-20) mg/dL Creatinine 1.88 H (0.66-1.25) mg/dL Glucose 201 H (74-99) mg/dL POC Glucose (mg/dL) 203 H (75-99) mg/dL Calcium 7.9 L (8.4-10.2) mg/dL Magnesium 3.0 H (1.6-2.3) mg/dL Total Bilirubin 3.8 H (0.2-1.3) mg/dL AST 116 H (17-59) U/L ALT 279 H (4-49) U/L Creatine Kinase (55-170) U/L Total Protein 5.2 L (6.3-8.2) g/dL Albumin 2.6 L (3.5-5.0) g/dL Urine Protein (Negative) Urine Bacteria (None) /hpf Urine Mucus (None) /hpf
[2020-10-28] MEDS: [UNRECOGNIZED DRUG - REMARK] IV SCH ×4 (14:20)
[2020-10-28 17:34] LABS: Glucose,Whole Blood 225 mg/dL (75-99)
--- NOTE | 2020-10-28 19:22 | PN ---
PROGRESS NOTE Patient is seen for followup for acute kidney injury associated with COVID-19 pneumonia. Renal function has improved with creatinine down to 1.8 from 2.1 yesterday. Urine output is currently at about 80-100 mL an hour. The patient remains on high-flow oxygen. He is not examined due to COVID-19 pneumonia. Overall, he appears to be doing slightly better. The patient is maintained on D5W at 50 mL an hour. He is also receiving the TPN. ON EXAMINATION Pt's vital signs are reviewed Pt is not examined. Discussed with nursing staff. LABS: Reviewed. Sodium is 145, potassium 4.0, chloride 115, BUN 100, creatinine 1.88. ASSESSMENT: 1. Acute kidney injury, acute tubular necrosis, associated with underlying COVID pneumonia. 2. Acute hypoxic respiratory failure due to COVID pneumonia. 3. Hypernatremia, currently improved. 4. History of deep venous thrombosis/pulmonary embolism. Maintained on anticoagulation. PLAN: Continue with current TPN and D5W. Recheck labs in a.m. MMLORENA / POOJAN: [id number] / [facility]
[2020-10-28 20:46] LABS: Glucose,Whole Blood 200 mg/dL (75-99)
[2020-10-29 05:51] LABS: Ionized Calcium 5.1 mg/dL (4.5-5.3)
[2020-10-29 06:32] LABS: Calcium 8.1 mg/dL (8.4-10.2); Phosphorus 3.3 mg/dL (2.5-4.5)
[2020-10-29 06:51] LABS: Glucose,Whole Blood 189 mg/dL (75-99)
[2020-10-29] MEDS: INSULIN DETEMIR (LEVEMIR) 100 UNIT/ML SYR SQ SCH (08:22)
[2020-10-29] MEDS: methylPREDNISolone SOD SUCCI 40 MG/ML 1 ML VIAL IV SCH ×2 (08:28→20:26)
[2020-10-29] MEDS: CHOLECALCIFEROL 25 MCG (1000 IU) TABLET PO SCH (08:29)
[2020-10-29] MEDS: VENLAFAXINE HCL 75 MG TAB PO SCH ×2 (08:31→20:22)
[2020-10-29] MEDS: RIVAROXABAN 20 MG TAB PO SCH (08:32)
[2020-10-29] MEDS: MULTIVITAMINS, THERA 1 EACH TAB PO SCH (08:33)
[2020-10-29] MEDS: METOPROLOL SUCCINATE (ER) 25 MG TAB.ER.24H PO SCH (08:33)
[2020-10-29] MEDS: PANTOPRAZOLE 40 MG/10 ML VIAL IVP SCH (08:34)
[2020-10-29] MEDS: NON FORMULARY DRUG (Atomoxetine Hcl [Strattera] 60 MG Capsule) PO SCH (08:34)
[2020-10-29] MEDS: NON FORMULARY DRUG (Atomoxetine Hcl [Strattera] 40 MG Capsule) PO SCH (08:35)
[2020-10-29] MEDS: ASPIRIN 81 MG PO SCH (08:39)
[2020-10-29] MEDS: levETIRAcetam IV 500 MG in SODIUM CHLORIDE 0.9% 100 ML IVPB SCH ×2 (08:39→20:22)
[2020-10-29] MEDS: NEBIVOLOL 5 MG TAB PO SCH (08:40)
[2020-10-29] MEDS: SYMBICORT 160-4.5 MCG INHALER INHALATION SCH ×3 (08:58→20:38)
[2020-10-29] MEDS: ALBUTEROL HFA INHALER INHALATION PRN (08:58)
[2020-10-29 09:06] LABS: Glucose,Whole Blood 188 mg/dL (75-99)
[2020-10-29] MEDS: INSULIN ASPART (NovoLOG) 100 UNIT/ML VIAL SQ SCH ×7 (09:17→20:43)
[2020-10-29] MEDS: [UNRECOGNIZED DRUG - REMARK] IV SCH ×4 (10:11)
--- NOTE | 2020-10-29 11:10 | P.PN ---
Subjective Progress Note Date: 10/29/20 Principal diagnosis: CoVID 19 pneumonia This is a pleasant 70-year-old gentleman follows with Dr. Polo as his primary care provider. He has a history of coronary artery disease, peripheral vascular disease, congestive heart failure, hyperlipidemia, hypertension, PE/DVT, obstructive sleep apnea utilizing CPAP, chronic obstructive pulmonary disease on home oxygen at 2 L/m per nasal cannula. The patient is a 1 week history of increasing shortness of breath, nausea, vomiting, diarrhea, weakness and was seen at [facility] and tested positive for CoVID and was instructed to go to the emergency room. Chest x-ray reveals mild bilateral pulmonary interstitial infiltrates. He is seen today in consultation on the selective care unit. He is currently sitting up in bed. Awake and alert in no acute distress. He is maintaining good O2 saturations in the mid 90s on 2 L/m per nasal cannula. He is afebrile. Hemodynamically stable. White count 4.7. Hemoglobin 12.9. Platelet count 116. Lymphocytes 0.7. D-dimer 0.18. Sodium 139. Potassium 4.3. Creatinine 1.51. LDH 784. C-reactive protein 88.5. Pro Calcitonin 0.22. He's been initiated on Symbicort, albuterol. Endocrine related with Xarelto. On dexamethasone, multivitamin. The patient is seen today 10/11/2020 in follow-up on the selective care unit. He is currently sitting up in bed. Awake and alert in no acute distress. He is requiring 3 L nasal cannula to maintain O2 saturations 88% and higher. He is normally on 2 L at home. He denies any worsening shortness of breath. He continues with a loose nonproductive cough. He is maintained on dexamethasone, vitamin supplements. Anticoagulated with Xarelto. 10/12/2020 the patient is being seen in follow-up in the selective units. The patient has been diagnosed having Covid 19 related pneumonia. The patient is 70 years old and he is known to have coronary artery disease, peripheral vascular disease, congestive heart failure, hyperlipidemia, hypertension, PE/DVT, obstructive sleep apnea utilizing CPAP, chronic obstructive pulmonary disease on home oxygen at 2 L/m per nasal cannula. The patient is currently maintained on dexamethasone, vitamin supplements. Anticoagulated with Xarelto. The patient's pulmonary status overnight decompensated. The patient had the replacement high flow oxygen at 60 L with an FiO2 of 60%. Chest x-ray showed diffuse bilateral pulmonary infiltrates, mostly peripheral, consistent with Covid 19 pneumonia, probably there is some interval worsening. The patient has bilateral shoulder replacement. The blood gases from yesterday showed a pH of 7.45 with a pCO2 of 38 and pO2 of 63. His inflammatory markers from today are elevated. LDH level is up to 1228 and a CRP level is up to 85. Need 2020, the patient is still on high flow oxygen at 60 L with an FiO2 of 55%. Based on the significant drop in oxygenation, which The patient on steroids and the patient is currently on Decadron and we added Toci 400 mg and the patient received only 1 dose. He is going to receive his second dose of 400 mg today. Patient's oxygenation is stable. D-dimer is down at 0.33. His LDH level is at 1228 and the CRP is at 85. The chest x-ray from yesterday showed bilateral patchy pulmonary infiltrates. The patient has approximately 2 fibrillation and is maintained on Xarelto. The patient also is known to have coronary artery disease, peripheral vascular disease, congestive heart failure, hyperlipidemia, hypertension, PE/DVT, obstructive sleep apnea utilizing CPAP, chronic obstructive pulmonary disease on home oxygen at 2 L/m per nasal cannula. On 10/14/2020, the patient is gradually getting worse. He was desaturating despite being on high flow oxygen at 60 L and an FiO2 of 90% and he is also utilizing 100% nonrebreather facemask. Note that this patient has been treated aggressively. He received Decadron. He also received 2 doses of Tocilizumab. . The patient had a d-dimer of 1.06 and the rest of the inflammatory markers are still pending for now. Meanwhile, his labs are essentially within normal limits and his creatinine is down to 1.2. He remains on Decadron 6 mg IV every 24 hours. He is also on long-term antibiotic ventilation with Xarelto 20 mg by mouth daily. Note that the patient has previous history of DVT and pulmonary embolism. He has obstructive sleep apnea and he has COPD and is maintained on oxygen at 2 L per minute at home for chronic hypoxic respiratory failure. He has hypertension and hyperlipidemia congestion heart failure and peripheral vascular disease in addition to CABG as comorbid conditions. His last chest x- ray was from 09/14/2020 and a repeat chest x-ray will be ordered. His last chest x-ray showed diffuse breath and pulmonary infiltrates, mainly the peripheries consistent with Covid 19 related pneumonia. 10/15/2020, the patient is currently in the intensive care unit. Just like yesterday, he remains on high flow oxygen 6 L with an FiO2 of 90% and the patient is also utilizing 100% nonrebreather facemask. His current pulse ox is around 91%. He is comfortable. Is at the rate is in the low 30s. His chest x- ray from today showing stable bilateral pulmonary infiltrates without any major interval change compared to yesterday. His blood work from today shows no electrolyte abnormalities, creatinine stable at 1.2. His inflammatory markers are still pending. CRP is down to 29, LDH is pending for now. The d-dimer is at 1.85. In terms of therapy, and he is on IV Solu-Medrol 60 mg every 6 hours is also on multivitamins and he remains on long-term anticoagulation with Xarelto. He is lethargic. Oral intake is quite diminished at this point in time. No altered mentation. Is able to follow commands appropriately. He is weak. He is known to have COPD, previous bypass, hypertension and hyperlipidemia and peripheral vascular disease. He is also known to have CHF. He does have a remote history of DVT and pulmonary embolism. He remains in the ICU for now. He got transferred to the ICU yesterday because of ongoing difficulties with shortness of breath and hypoxemia. His echocardiogram from 2018 was essentially within normal limits and he had a normal ejection fraction. 10/16/2020, Rayo is on 60 L of oxygen along with an FiO2 of 90% and the patient is on 100% nonrebreather facemask. He is quite comfortable. He takes of his main for feeding purposes. During this time, he desaturates and is relatively asymptomatic while he desaturates. He goes down to the 80s and he recovers. He is not tachypneic. He is resting comfortably in bed. In terms of treatment, the patient remains on IV Solu Medrol 60 mg every 6 hours. He is on long-term anticoagulation with Xarelto. His chest x-ray from today is reviewed and is showing some limited improvement in the bilateral interstitial infiltrates seen earlier. In terms of his inflammatory markers, his LDH from yesterday and today has not been checked. His last LDH level was on 10/14/2020 was 1797. His CRP level has dropped down to 16.3. His d-dimer level is at 4.08. As mentioned, the patient is on anticoagulation and he is on Xarelto. He is also on Lasix and he is receiving Lasix 40 mg IV every 24 hours. Neck fluid balance over the past 24 hours has been -2.2 L and is responding nicely to diuretics and his weight is declined. No other significant issues. No altered mentation. No agitation. No confusion. No nausea. No vomiting. No diarrhea. No abdominal pain. No chest pain. He is known to have CAD, previous bypass, hypertension and hyperlipidemia and peripheral vascular disease. He also has history of DVT and pulmonary embolism remains on anticoagulation. 10/17/2020, the patient is on high flow oxygen at 60 L along with FiO2 of 90%. Chest x-ray showing infiltrates mainly on the left compared to the right. Lung volumes are essentially small. No major interval change compared to yesterday, the right lung is obviously better compared to the chest x-ray yesterday. In terms of his clinical status, the patient is feeling that he is less short of breath compared to yesterday. He has occasional cough. No chest pain. He is able to get rid of his 100% nonrebreather facemask and tolerate his diet. He is taking approximately 50% of his diet provided. He remains on IV Solu-Medrol. He remains on long-term articulation with Xarelto. LDH and CRP are being monitored. The levels were quite elevated and the LDH today's 2785 and the CRP is 11.3. The BUN is a 54 with a creatinine of 1.09. Electrolytes are normal, d-dimer is at 6.88, and the CBC showing a white cell count of 15.8 with a hemoglobin of 13.7. No confusion. No altered mentation. Fluid balance is in order of -2.4 L. He is getting Lasix 40 mg IV every 24 hours. No other significant events overnight A 2020 the patient is being seen for a follow-up. Currently he is on a combination of high flow oxygen 6 L with an FiO2 of 90% and the same time the patient is on a nonrebreather facemask 100%. Pulse ox is currently ranging between 80% up to 88% and it fluctuates. Overnight, he became slightly more restless and agitated. He pulled on his masks and he became briefly hypoxic and had to be placed again. As stated, his overall respiratory status quite borderline. He is a case of Covid 19 related pneumonia. On IV Solu-Medrol 60 mg every 6 hours. In terms of his inflammatory markers today, the patient's LDH level is up to 3174 and his CRP level is also at 5.9. D-dimer is at 11.45. He is on anticoagulation and is receiving Xarelto on a daily basis . His chest x- ray is showing limited by system place, change compared to yesterday. On examination, he has adequate air entry bilaterally. His fluid balance over the past 24 hours has been in the order of -2.4 L and the patient is diuresing adequately. His body weight is also on the decline. His blood work today shows a BUN of 54 with a creatinine of 1.09 and the sodium level is at 139. His white cell count 15.8 with hemoglobin 13.7 and a adequate platelet count of 239. No other significant events otherwise for now. Active issue remains is ongoing respiratory insufficiency and high oxygen requirements. The patient is seen today 10/19/2020 in follow-up in the intensive care unit. He is currently sitting up in bed. Awake and alert in no acute distress. He is still requiring airflow high flow oxygen at 15 L/m and 90% FiO2 along with a nonrebreather mask to maintain O2 saturations in the high 80s low 90s. He did receive Tocilizumab. He is currently on Solu-Medrol 60 mg every 6 hours, bronchodilators. Anticoagulated with Xarelto. Receiving IV diuretics. Remains in a negative balance. Chest x-ray continues to show bilateral patchy infiltrates. No evidence of pneumothorax. White count 19.1. Hemoglobin 14.1. D-dimer 11.6. Sodium 137. Potassium 4.4. Creatinine 1.0. LDH 2962. C- reactive protein 5.4. The patient is seen today 10/20/2020 in follow-up in the intensive care unit. He is currently sitting up in bed. Awake and alert in no acute distress. He is still very weak and fatigued. He has very little reserve. Any little movement decreases his oxygen saturations. He is currently on AirVo high flow oxygen at 60 L and 90% FiO2 along with a nonrebreather mask. He's been on IV Solu-Medrol 60 every 6, Xarelto, bronchodilators. Received tocilizumab. Chest x-ray continues to show bilateral interstitial infiltrates with trace effusions. He remains on IV diuretics.. Plan to add Zosyn. Pro-calcitonin pending. White count up to 21.3. Hemoglobin 14.3. Sodium 136. Potassium 4.5. Creatinine 1.07. C-reactive protein less than 5.0. The patient is seen today 10/21/2020 in follow-up in the intensive care unit. He is currently awake and alert in no acute distress. Resting fairly comfortably in bed. Still quite fatigued and weak. Slightly better today compared to yesterday. Remains on AirVo high flow oxygen at 60 L and 90% FiO2 and a nonrebreather mask to maintain O2 saturation in the low to mid 80s. He's been afebrile. White count 27.3. Hemoglobin 15.0. D-dimer 9.89. Sodium 138. Potassium 4.6. Creatinine 1.11. LDH 2774. C-reactive protein less than 5.0. He's been on IV Solu-Medrol 60 every 6, Xarelto, bronchodilators. Received tocilizumab. Chest x-ray shows some worsening left lung infiltrate. Bibasilar patchy infiltrates. He was initiated on Zosyn. Procalcitonin 0.09. He remains on daily IV Lasix. Currently in a negative balance. Patient was reevaluated today on 10/22/2020, remains in the ICU, looks frail and chronically ill, looks weak, remains on high flow oxygen via airvo he is on 80% which was increased earlier to 90% and he is also on 60 L flow. After evaluating the patient today, I transitioned the patient to BiPAP, 100% FiO2 with IPAP of 14 EPAP of 16. Chest x-ray continues to show bilateral interstitial infiltrates, not much of a change in the last few days. ABG earlier on 80% FiO2 showed a pO2 of 45 pCO2 of 35 pH of 7.47. Clinically, the patient is comfortable, does not seem to be in distress, and I am not planning to proceed to intubation and mechanical ventilation at least not at this point. However if his condition gets clinically worse, would definitely recommend intubation and mechanical ventilation. Basic metabolic profile today is relatively normal BUN is 64 creatinine 1.17. His inflammatory markers remained relatively elevated. LDH is 2416, C-reactive protein is 5.1 WBC count is 22.7 hemoglobin is 14.3. Patient remains on Solu-Medrol, Xarelto, bronchodilators, and he received actemra. He also remains on Zosyn empirically. Patient was reevaluated today on 10/23/2020, patient remains remains on BiPAP, with IPAP of 14 EPAP of 6, 60% FiO2. Remains on Xarelto, his overall clinical status is marginal at best. Patient had an episode of confusion yesterday as he went to the bathroom, and he pulled his PICC line, a right femoral line was placed by Dr. Ramos shortly after. Patient is generally weak, lethargic, but arousable, follows simple instructions, and he tells me that he feels fine ABC showed leukocytosis with WBC of 24.3 hemoglobin is 14.7 and at rest are normal BUN is 73 creatinine 1.34. Liver enzymes are relatively elevated. Chest x-ray continues to show bilateral interstitial opacities with a small tiny trace of right-sided pleural effusion Reevaluated today , patient is basically about the same. Remains on BiPAP with the same settings as above, FiO2 was cut down to 55%. He is on IPAP of 14 and EPAP of 6. Remains on the Covid 19 cocktails. No major change in the last 24 hours Liver enzymes remain borderline elevated. D-dimer is 5.49. Electrolytes are normal except for elevated sodium and chloride. BUN is 75 creatinine is 1.28. W a count is 21.6 hemoglobin is 14.3. The patient is seen today 10/25/2020 in follow-up in the intensive care unit. He remains on BiPAP 14/6 and 55% FiO2. He is somewhat more obtunded today. Difficult to arouse. But able to wake up enough to take his medications. His knees are somewhat mottled. He is maintaining O2 saturations in the low 90s. He has 0.9 normal saline at 50 MLS per hour. Remains on IV Solu-Medrol, bronchodilators, Xarelto. White count 20.7. Hemoglobin 13.9. Lymphocytes 0.2. Sodium 157. Potassium 4.4. Creatinine 1.51. Progress note dated 10/24/2020. This is a 71-year-old male who was admitted to the hospital on October 09. He came in with a diagnosis of COVID 19 pneumonia. The patient was transferred to the intensive care unit on October 15. Currently, the patient remains on BiPAP, settings of IPAP 14, EPAP 6, and 55%. The patient's also getting D5W to 150 mL an hour. He did receive 2 doses of TOCI. Unfortunately, the patient has pulled out all his IVs including 2 central lines. A PICC line will be placed today so he can get nutrition. White count 23,000, hemoglobin 11.9, hematocrit 34.8, platelet count 138,000. PT 14, INR 1.4, PTT is 20.7, and d-dimer is 3.74. Sodium is down to 150 from 157, potassium 4.2, chlorides 118, CO2 26, anion gap 6, BUN 95, creatinine 1.94. LDH is 9. Ferritin is 2227. Chest x-ray continues to show bilateral interstitial patchy infiltrates, and a pneumatocele in the right midlung. Progress note dated 10/27/2020. 71-year-old male, admitted to the hospital on October 09. He came in with a diagnosis of COVID 19 pneumonia. Currently, he is on AIRVO, settings of 55 L/m flow, FiO2 of 55%. Saturations are in the low 90s. Is getting D5W at 150 mL an hour, and TPN at 30 mL an hour. His sodium is down to 145. In addition, he received Haldol last night, 8 mg IV. He had a right upper extremity double- lumen PICC line placed yesterday. The arterial line to be discontinued as is nonfunctional. Other than that, the patient is doing about the same. White count 14.4, he will be 10.2, hematocrit 30.6, platelet count 104,000. Sodium 145, potassium 4.4, chlorides 115, CO2 22, anion gap 8, BUN 112, creatinine 2.12. Chest x-ray from October 27, is unchanged. The patient is seen today 10/28/2020 in follow-up in the intensive care unit. He is currently resting fairly comfortably in bed. Remains on AirVo high flow oxygen at 55 L/m and 55% along with a nonrebreather mask. O2 saturations remaining in the low 90s. He is currently being nourished with TPN at 50 MLS per hour, D5 W at 50 mL per hour. White count 15.1. Hemoglobin 9.9. Platelets 97. D-dimer 2.83. Sodium 145. Potassium 4.0. Creatinine 1.88. Remains on bronchodilators, IV Solu-Medrol, Xarelto. More calm and cooperative today. The patient is seen today 10/29/2020 in follow-up in the intensive care unit. Awake and alert. Resting fairly comfortably in bed. He remains on Arava pro-flow oxygen at 55 L/m and 55% FiO2 along with a nonrebreather mask. Sats averaging 85-94%. He has D5W at 50 MLS per hour. TPN at 50 MLS per hour. Sodium 145. Potassium 4.0. Creatinine 1.39. Remains on IV Solu-Medrol, Symbicort, albuterol. Continued on vitamin supplements. Anticoagulated with Xa relto. Objective - Vital Signs Vital signs: Vital Signs Temp 98.3 F 10/29/20 08:00 Pulse 103 H 10/29/20 10:00 Resp 32 H 10/29/20 10:00 BP 136/60 10/29/20 10:00 Pulse Ox 84 L 10/29/20 10:00 Intake & Output 10/28/20 10/29/20 10/29/20 18:59 06:59 18:59 Intake Total 1500 1300 1442.5 Output Total 1050 980 310 Balance 955 737 7801.5 Weight 109.2 kg 110.8 kg Intake: IV 1200 1300 400 Dextrose 5% in Water 1, 600 650 150 000 ml @ 50 mls/hr IV . Q20H FRANCES Rx#:[id number] Mvi, Adult No.4 with Vit 600 650 150 K 10 ml Trace (Conc-1Ml/ Dose) 1 ml In Amino Acid 5%-D15w 1,000 ml @ 50 mls /hr IV .[id number] FRANCES Rx#: [id number] levETIRAcetam IV 500 mg 100 In Sodium Chloride 0.9% 100 ml @ 400 mls/hr IVPB Q12HR FRANCES Rx#:[id number] Intake, IV Titration 100 992.5 Amount Mvi, Adult No.4 with Vit 992.5 K 10 ml Trace (Conc-1Ml/ Dose) 1 ml Potassium Acetate 10 meq In Amino Acid 5%-D15w 1,000 ml @ 50 mls/hr IV .[id number] FRANCES Rx#:[id number] levETIRAcetam IV 500 mg 100 In Sodium Chloride 0.9% 100 ml @ 400 mls/hr IVPB Q12HR FRANCES Rx#:[id number] Oral 200 50 Output: Urine 1050 980 310 Other: Voiding Method Indwelling Catheter Indwelling Catheter # Bowel Movements 1 ABP, PAP, CO, CI - Last Documented Arterial Blood Pressure 69/48 - Exam GENERAL EXAM: Alert, pleasant 70-year-old gentleman, on AirVo at 55 L and 55% FiO2 with a nonrebreather mask, comfortable in no apparent distress. HEAD: Normocephalic. EYES: Normal reaction of pupils, equal size. NOSE: Clear with pink turbinates. THROAT: No erythema or exudates. NECK: No masses, no JVD. CHEST: No chest wall deformity. LUNGS: Equal air entry with few scattered rhonchi, crackles in the bases. CVS: S1 and S2 normal with no audible murmur, regular rhythm. ABDOMEN: No hepatosplenomegaly, normal bowel sounds, no guarding or rigidity. SPINE: No scoliosis or deformity SKIN: No rashes CENTRAL NERVOUS SYSTEM: No focal deficits, tone is normal in all 4 extremities. EXTREMITIES: There is no peripheral edema. No clubbing, no cyanosis. Peripheral pulses are intact. - Labs CBC & Chem 7: 10/28/20 04:19 10/29/20 04:24 Labs: Abnormal Lab Results - Last 24 Hours (Table) 10/28/20 10/28/20 10/28/20 Range/Units 04:19 11:28 17:32 Chloride (98-107) mmol/L BUN (9-20) mg/dL Creatinine (0.66-1.25) mg/dL Glucose (74-99) mg/dL POC Glucose (mg/dL) 205 H 225 H (75-99) mg/dL Calcium (8.4-10.2) mg/dL Magnesium (1.6-2.3) mg/dL Ferritin 1385.2 H (22.0-322.0) ng/mL Triglycerides (<150) mg/dL 10/28/20 10/29/20 10/29/20 Range/Units 20:45 04:24 06:49 Chloride 115 H (98-107) mmol/L BUN 77 H (9-20) mg/dL Creatinine 1.39 H (0.66-1.25) mg/dL Glucose 182 H (74-99) mg/dL POC Glucose (mg/dL) 200 H 189 H (75-99) mg/dL Calcium 8.1 L (8.4-10.2) mg/dL Magnesium 3.0 H (1.6-2.3) mg/dL Ferritin (22.0-322.0) ng/mL Triglycerides 409 H (<150) mg/dL 10/29/20 Range/Units 09:04 Chloride (98-107) mmol/L BUN (9-20) mg/dL Creatinine (0.66-1.25) mg/dL Glucose (74-99) mg/dL POC Glucose (mg/dL) 188 H (75-99) mg/dL Calcium (8.4-10.2) mg/dL Magnesium (1.6-2.3) mg/dL Ferritin (22.0-322.0) ng/mL Triglycerides (<150) mg/dL Assessment and Plan Assessment: 1 Acute on chronic hypoxic respiratory failure secondary to acute CoVID 19 pneu monia, on AirVo at 55L/min and 55% FiO2 along with a nonrebreather mask. He received Tocilizumab. 2 Elevated inflammatory markers secondary to above 3 Acute on chronic renal failure 4 Chronic hypoxic respiratory failure secondary to chronic obstructive pulmonary disease on home O2 at 2 L/m 5 Former smoker 6 History of coronary disease 7 Hyperlipidemia 8 Hypertension 9 History of PE/DVT anticoagulate with Xarelto 10 History of depression 11 Obstructive sleep apnea utilizing CPAP 12 History of peripheral vascular disease 13 BPH Plan: The patient was seen and evaluated by Dr. Ramos Continue IV Solu-Medrol 60 mg every 6 hours. Anticoagulated with Xarelto Continue TPN for nutritional support Repeat inflammatory markers in the a.m. Condition remains guarded We will continue to follow and make further recommendations based on his clinical status Critical care time 36 minutes I, the cosigning physician, performed a history & physical examination of the patient. Lungs sounds with few scattered rhonchi, crackles in the bilateral posterior bases. Maintaining good O2 saturations in the 90s on AirVo high flow at 55L/min, 55% Fio2 along with a nonrebreather mask. I discussed the assessment and plan of care with my nurse practitioner, Kandis Pepe. I attest to the above note as dictated by her.
--- NOTE | 2020-10-29 11:36 | P.PN ---
Subjective Progress Note Date: 10/29/20 HISTORY OF PRESENT ILLNESS This is a 70 years old male patient of Dr. Polo with past medical history of pulmonary embolism diagnosed in [place] 2 years ago, history of lower extremity DVT, coronary artery disease no stent, history of heart failure unknown if systolic or diastolic, COPD, hyperlipidemia, hypertension, osteoarthritis, prostate cancer, skin disorder,'s obstructive sleep apnea on CPAP, subclavian steal syndrome with stent placement, history of recent penile implant on 07/27/2016. Patient has chronic shortness of breath that has been going on for the past 2 years since the diagnosis of pulmonary embolism with O2 requirements at 2 L nasal cannula Patient is currently on maintenance dose of xarelto at 10 mg daily. He presents emergency room secondary to worsening dyspnea, x 7 days without any medical intervention prior to this, He was seen in the Emergency room for the shortness of breath, worsening dyspnea and exertion, and was found to be SARS cov 2 positive. Chest x-ray, shows bilateral pulmonary interstitial infiltrates compared to old exam, with a similar atelectasis. Poor inspiration, no hilar masses laboratory shows hemoglobin of 12.9, WBC count of 7, creatinine of 1.47, iron of 1.2, glucose 120 CRP 88, pro-calcitonin slightly elevated 0.22. Patient denies any chronic prednisone exposure, Consult were made with pulmonary, Dr. Ramos, pulse oximetry would be 9 PT 1697 at 2-3 L nasal cannula, blood pressure of 129/66. 10/11: Patient was seen for follow-up today, he is a little bit tachypnea, very small amount of labored breathing only on exertion, no conversational dyspnea, O2 at 2 L, sats 95%, no clearance from pulmonary medicine are stable were rounding today, no cough, no pleurisy, no chest pain no palpitations, creatinine at 1.5 today, electrolytes are normal, wbc of 4.7, LDH of 784, ferritin 533 patient is on IV dexamethasone maintained on Xarelto, no new treatment from pulmonary critical care today, currently stable 10/12: A-Team is called during the night due to hypoxia and patient was started on AirVo. Respiratory rate is been in the 40s, heart rate 74, afebrile, pulse ox 96%. Chest x-ray from yesterday revealed patchy. Hilar and basilar infiltrates persist and have progressed slightly in the interval. Repeat blood work reveals WBC 6.8, hemoglobin 12.4, platelet count 135. LDH 1228. C- reactive protein 85.1. The patient has developed increasing difficulty with breathing. He denies having any chest pain. He states he could not sleep through the night. 10/13: Patient states that his breathing status is about the same as yesterday or little bit more difficult. He denies any coughing up blood. He denies any abdominal pain, nausea or vomiting, no diarrhea. Patient remains on Arava with pulse ox of 88-90%. Afebrile, heart rate 69, respiratory rate 40, blood pressure 137/76. Patient is status post 2 doses of Tocilizumab. patient is followed closely by pulmonary medicine. 10/14: Patient is currently on AirVo and nonrebreather but states that he is feeling better today and that his breathing is better. He has been afebrile, heart rate 72, respiratory rate 36, blood pressure 130/70, pulse ox 90%. He denies having abdominal pain, nausea vomiting or diarrhea. He remains on Solu- Medrol 60 mg IV every 6 hours. 10/15: Patient was transferred to the ICU per Dr. Wright. He is currently on AirVo only at time of evaluation and is eating his breakfast. Patient has been maintained on Arava plus nonrebreather. His breathing status appears to be improved from yesterday. His pulse ox is 88%. Afebrile, heart rate 76, respiratory rate 25, blood pressure 131/81. Repeat chest x-ray reveals stable chest. Repeat blood work reveals normal CBC. D-dimer 1.85. C-reactive protein 29. LDH is pending. Ferritin level 1340.6. Patient is scheduled for PICC line insertion today. Lasix 40 mg IV push ordered today by pulmonary medicine. Patient is continued on Solu-Medrol 60 mg every 6 hours. Patient not receiving any antibiotics at this time. 10/16: Patient remains in the intensive care unit. He was off nonrebreather and only on AirVo yesterday most of the day. Now he is on both AirVo and nonrebreather and taking the nonrebreather on and off as he needs it. He is eating 50% of his meals. He has been afebrile, heart rate 69, respiratory rate 34, blood pressure 142/80, pulse ox 88% on both AirVo and nonrebreather. Repeat blood work reveals W BC 13.5, hemoglobin 13.6, platelet count 247. Electrolytes normal. BUN 52 and creatinine 1.2. Blood sugars running between 120 975. Total bilirubin 1.0, AST 111, ALT 137, alkaline phosphatase 80. C-reactive p rotein 16.3, CK 65. Repeat chest x-ray reveals bilateral lower lobe infiltrate and small effusion with coarsened interstitium correlate for venous congestion versus interstitial pneumonia. Patient surprisingly feels his breathing is stable. He has no new complaints. 10/17: Patient remains in intensive care unit. He has been off the nonrebreather for the past hour and a half with only AirVo with pulse ox in the high 80s. He has been afebrile, heart rate in the 70s, blood pressure 142/86, respiratory rate in 30s. Patient verbalizes that his breathing status is improving. Repeat blood work reveals WBC 15.8, hemoglobin 13.7, platelet count 239. Electrolytes normal. BUN 54 and creatinine 1.09. Blood sugars running between 120 765. Total bilirubin 1.5, AST 195, ALT 304, alkaline phosphatase 92, LDH 2785. CK 51, C-reactive protein 11.3. Repeat chest x-ray reveals mild interval pro gression in the lung infiltrates within the right lung. Left lung is stable. No change in small bilateral pleural effusions. 10/18: Patient remains in intensive care unit. He is seen today on AirVo and nonrebreather and pulse ox has been marginal in the low to mid 80s. Heart rate is in the 70s, respiratory rate in the 30s, blood pressure 136/87. He has been afebrile. Repeat blood work reveals WBC 18.4. Electrolytes normal, BUN 59 and creatinine 1.03. Blood sugars running between 126 and 166. Ferritin level 1817. D-dimer 11.45. Total bilirubin 1.7, AST 128, ALT 309, alkaline phosphat ase 121. LDH 3174. CK 98, C-reactive protein 5.9. Repeat chest x-ray reveals left perihilar and basilar infiltrates persist 10/19: Patient's breathing status remains about the same. He has been afebrile, heart rate 70s, respiratory rate 29, blood pressure 143/87. Pulse ox is running mid to high 80s with nonrebreather and high flow nasal cannula. WBC 19.1, hemoglobin 14.1, platelet count 247. D-dimer 11.64. Electrolytes normal. BUN 55 and creatinine 1.05. Blood sugars running between 124 and 197. Ferritin 1583. Total bilirubin 1.4, AST 99, ALT 266, alk phos was 123. LDH 2962. C-re active protein 5.4. Repeat chest x-ray shows no pneumothorax. Interstitial and patchy bilateral infiltrates. 10/20: Patient remains in the intensive care unit and he is currently on nonrebreather and high flow nasal cannula. Pulse ox is running 86-91%. He has been afebrile, heart rate in the 70s, respiratory rate 29, blood pressure 145/81. WBC 21.3. Sodium 136, BUN 57 and creatinine 1.07. Blood sugars running between 100 3459. Ferritin level 1616. Total bilirubin 1.8, AST 87, ALT 262, alkaline phosphatase 131. C-reactive protein normal at less than 5. Repeat chest x-ray reveals relatively stable with interstitial infiltrates and possible trace effusions. 10/21:patient remains in the intensive care unit. He is on Arava oh and nonrebreather with pulse ox in the mid 80s. Patient has been afebrile.Heart rate in the 70s and 60s, respiratory rate in the mid to high 20s, pulse ox a nywhere between 81-89%, blood pressure 119/81. WBC 27.3, hemoglobin 15, platelet count 202. Electrolytes normal, BUN 61 and creatinine 1.11. Blood sugars running between 141 and 158. Ferritin level 1639, total bilirubin 2.0, AST 104, ALT 296, alkaline phosphatase 136. LDH 2774. C-reactive protein less than 5. Patient is continued on Zosyn, IV Solu-Medrol heart rate in the 60s and 70s, respiratory rate in the 20s n and IV Lasix. 10/22: Patient remains in the intensive care unit currently on BiPAP. Patient had some increased anxiety this morning was given Xanax and was lethargic following with desats and subsequently placed on BiPAP. He's been running high 90s for pulse ox. He's been afebrile, heart rate in the 70s, respiratory rate in the 20s to 30s, blood pressure 125/91. Repeat blood work reveals W BC 22.7, hemoglobin 14.3, platelet count 173. Electrolytes are normal except for CO2 of 31, BUN 64 and creatinine 1.17. Ferritin 1475.9. Total bilirubin 2.3, AST 88, ALT 281, alkaline phosphatase 133. LDH 2416. Blood sugars running between 144 and 158. Repeat chest x-ray reveals mild diffuse increased lung opacities. Patient is continued on Zosyn, Solu-Medrol. Patient may require intubation. 10/23: The patient remains on BiPAP with pulse ox between 86 and 92 with FiO2 of 60%, respiratory rate anywhere between 28 and 40, heart rate in the 80s, afebrile. Patient is getting tired and fatigued. He actually pulled his PICC line out and arterial line and femoral triple-lumen catheter was placed. Repeat chest x-ray reveals similar diffuse bilateral interstitial opacities. Possible trace right effusion. Patient's mental status is stable today. He did have some mild confusion and lethargy yesterday. WBC 24.3. BUN 73 and creatinine 1.34. Blood sugars running between 140 154. Total bilirubin 3.1, AST 117, ALT 329, alkaline phosphatase 137. 10/26: Patient remains in the intensive care unit on BiPAP. Pulse ox is 89-93% on BiPAP of 55% FiO2. Respiratory rate in the 30s, afebrile, heart rate in the 80s and 90s, blood pressure 101/69. Repeat blood work reveals W BC 23.0, hemoglobin 11.9, platelet count 138. INR is 1.4. D-dimer 3.7 following her. Sodium 150, potassium 4.2, chloride 118, CO2 26, BUN 95 and creatinine 1.94. Blood sugars running between 124 and 214. Total bilirubin 3.8, AST 132, ALT 407, alkaline phosphatase 83. LDH 2059. CK 272. Patient's IV fluids were switched to D5 yesterday at 150 mL per hour and IV Lasix was discontinued with improvement of his sodium. Patient pulled out his central line. Prognosis is guarded. 10/27: Patient is afebrile, heart rate 96, respiratory rate 27, blood pressure 120/72, pulse ox 90-95 percent on AirVo with FiO2 of 70%. Patient was decreased to 55% and he seems to be desats into the low 80s. Repeat blood work reveals WBC 14.4, hemoglobin 10.3, platelet count 104. Sodium 145, potassium 4.5, chloride 115, CO2 22, BUN 112 and creatinine 2.12. Blood sugars running between 186 and 290. Phosphorus 5.2, magnesium 3.2, total bilirubin 3.4, AST 97, ALT 310, alkaline phosphatase 75. C-reactive protein 6.4. Patient has been started on TPN. 10/28: She remains on AirVo with pulse ox in the low 90s, he has soft restraints in place, mild confusion. Patient has been afebrile, heart rate 96, blood pressure 122/66. Respiratory rate 20-30. Repeat blood work reveals WBC 15.1, hemoglobin 9.9, platelet count 97. D-dimer 2.83. BUN 100 and creatinine 1.88. Magnesium 3.0. Ferritin 1385, AST 116, ALT 279, alkaline phosphatase 83, CK 479. Repeat chest x-ray reveals scattered interstitial infiltrates persist. Patient has been seen by nephrology with recommendations to decrease IV fluids, DC phosphorus and TPN. Renal ultrasound revealed nonvisualization of the left kidney. Right kidney demonstrates no evidence of hydronephrosis or nephrolithiasis. Cortical thinning suggest chronic medical renal disease. 10/29: Patient remains in the intensive care unit, mild confusion, no restraints in place. Pulse ox is running about 90 on nonrebreather mask and high flow nasal cannula. Patient has been afebrile, heart rate 103, respiratory rate 32, blood pressure 136/60. Monitor is sinus rhythm. Repeat blood work reveals sodium 145, potassium 4.0, chloride 115, CO2 26, BUN 797 and creatinine 1.39. Blood sugars running 189-225. Insulin will be increased to 15 units Levemir daily and add NovoLog 3 units with meals and before bed and continue NovoLog scale. The patient is refusing all meals only able to eat a few bites. He is on TPN and dextrose IV fluids. REVIEW OF SYSTEMS Constitutional: Denies fever, no chills, no night sweats. Generalized weakness, reports fatigue. EENT: No headache. No dizziness. No nasal drainage or congestion. No sore throat. Lungs: Reports shortness of breath, reports cough, no sputum production. No wheezing. reports dyspnea with exertion. Cardiovascular: No chest pain, no lower extremity edema. No palpitations. No paroxysmal nocturnal dyspnea. No orthopnea. No lightheadedness or dizziness. No syncopal episodes. Abdominal: No abdominal pain. No nausea, vomiting. No diarrhea. No constipation. No bloody or tarry stools reports loss of appetite. Genitourinary: No dysuria, increased frequency, urgency. No urinary retention. Musculoskeletal: No myalgias. Reports muscle weakness, no gait dysfunction, no frequent falls. No back pain. No neck pain. Integumentary: No wounds, no lesions. No rash or pruritus. No unusual bruising. High flow nasal cannula Neurologic: No aphasia. No facial droop. Noted change in mentation. No head injury. No headache. Psychiatric: No depression. No anxiety. No mood swings. Reports insomnia. Endocrine: Noted abnormal blood sugars. No weight change. PHYSICAL EXAMINATION Gen: This is a 70-year-old male. He is resting in ICU bed and appears to be fatigued. Patient is on AirVo. HEENT: Head is atraumatic, normocephalic. Pupils equal, round. Sclerae is anicteric. NECK: Supple. No JVD. No lymphadenopathy. No thyromegaly. LUNGS: Few scattered rhonchi and scattered expiratory wheezing. Mild intercostal retractions. HEART: Regular rate and rhythm. No murmur. ABDOMEN: Soft. Bowel sounds are present. No masses. No tenderness. EXTREMITIES: No pedal edema. No calf tenderness. Dorsalis pedis palpable bilaterally. NEUROLOGICAL: Patient is awake, alert and oriented to person and place. Generalized weakness noted. Generalized fatigue noted. ASSESSMENT AND PLAN 1. Acute SARS COV2, infection with acute hypoxic respiratory failure. Continue current management per pulmonary medicine. Continue Solu-Medrol 40 mg every 12 hours, albuterol inhaler as needed, Symbicort inhaler twice daily. Continue vitamin D. Patient is status post 2 doses of Tocilizumab. Continue Incentive spirometry. Patient may require intubation. Monitor inflammatory markers. 2. Thrombocytopenia secondary to COVID 19 infection. Continue to monitor. 3. Acute kidney injury secondary to dehydration, poor oral intake. Continue to monitor renal function. Consult with nephrology appreciated. Ultrasound as above. 4. Chronic anticoagulation, secondary to history of DVT. Continue Xarelto. 5. History of DVT of the right leg in December 2013, resolved. 6. COPD. Continue albuterol- Atrovent as needed . Continue Symbicort twice daily 7. Hyperlipidemia. Continue Crestor daily. 8. Subclavian steal syndrome status post stent in the right carotid. 9. Benign prostatic hypertrophy. The catheter. Continue Flomax daily 10. History of coronary artery disease with previous myocardial infarction. 11. Obstructive Sleep apnea. Patient has his own CPAP machine. 12. Gastroesophageal reflux disease and gastric intestinal prophylaxis. Continue tonic's. 13. Hypertension. Continue Toprol-XL 75 mg daily. 14. Depression. Continue Cymbalta 150 mg twice daily. 15. History of ADHD. Strattera on hold. 16. Chronic kidney disease stage III, stable 17. Chronic systolic heart failure and ischemic cardiomyopathy with prior ejection fraction 40%. Continue aspirin 81 mg metoprolol 18. Hyperglycemia secondary to steroids and TPN. Patient placed on Levemir crease to 15 units daily, and 3 units of NovoLog before meals and at bedtime and continue with NovoLog scale. CODE STATUS full code Prognosis guarded. DISCHARGE PLAN TBD. Impression and plan of care have been directed as dictated by the signing physician. Nena Frausto nurse practitioner acting as scribe for signing physician. Objective - Vital Signs Vital signs: Vital Signs Temp 98.6 F 10/29/20 00:00 Pulse 96 10/29/20 06:00 Resp 30 H 10/29/20 06:00 BP 122/74 10/29/20 06:00 Pulse Ox 82 L 10/29/20 06:00 Intake & Output 10/28/20 10/29/20 10/29/20 18:59 06:59 18:59 Intake Total 1500 1300 Output Total 1050 980 Balance 450 320 Weight 109.2 kg 110.8 kg Intake: IV 1200 1300 Dextrose 5% in Water 1, 600 650 000 ml @ 50 mls/hr IV . Q20H [facility] Rx#:[id number] Mvi, Adult No.4 with Vit 600 650 K 10 ml Trace (Conc-1Ml/ Dose) 1 ml In Amino Acid 5%-D15w 1,000 ml @ 50 mls /hr IV .[id number] [facility]ANC[facility] Rx#: [id number] Intake, IV Titration 100 Amount levETIRAcetam IV 500 mg 100 In Sodium Chloride 0.9% 100 ml @ 400 mls/hr IVPB Q12HR [facility] Rx#:[id number] Oral 200 Output: Urine 1050 980 Other: Voiding Method Indwelling Catheter Indwelling Catheter # Bowel Movements 1 ABP, PAP, CO, CI - Last Documented Arterial Blood Pressure 69/48 - Labs CBC & Chem 7: 10/28/20 04:19 10/29/20 04:24 Labs: Abnormal Lab Results - Last 24 Hours (Table) 10/28/20 10/28/20 10/28/20 Range/Units 04:19 11:28 17:32 Chloride (98-107) mmol/L BUN (9-20) mg/dL Creatinine (0.66-1.25) mg/dL Glucose (74-99) mg/dL POC Glucose (mg/dL) 205 H 225 H (75-99) mg/dL Calcium (8.4-10.2) mg/dL Magnesium (1.6-2.3) mg/dL Ferritin 1385.2 H (22.0-322.0) ng/mL Triglycerides (<150) mg/dL 10/28/20 10/29/20 10/29/20 Range/Units 20:45 04:24 06:49 Chloride 115 H (98-107) mmol/L BUN 77 H (9-20) mg/dL Creatinine 1.39 H (0.66-1.25) mg/dL Glucose 182 H (74-99) mg/dL POC Glucose (mg/dL) 200 H 189 H (75-99) mg/dL Calcium 8.1 L (8.4-10.2) mg/dL Magnesium 3.0 H (1.6-2.3) mg/dL Ferritin (22.0-322.0) ng/mL Triglycerides 409 H (<150) mg/dL 10/29/20 Range/Units 09:04 Chloride (98-107) mmol/L BUN (9-20) mg/dL Creatinine (0.66-1.25) mg/dL Glucose (74-99) mg/dL POC Glucose (mg/dL) 188 H (75-99) mg/dL Calcium (8.4-10.2) mg/dL Magnesium (1.6-2.3) mg/dL Ferritin (22.0-322.0) ng/mL Triglycerides (<150) mg/dL
[2020-10-29 12:09] LABS: Glucose,Whole Blood 193 mg/dL (75-99)
[2020-10-29] MEDS: DEXTROSE 5% IN WATER 1,000 ML IV SCH (12:58)
--- NOTE | 2020-10-29 16:54 | PN ---
PROGRESS NOTE Patient is seen for followup for acute kidney injury. His renal function has been improving. Overall general condition is about the same. Serum creatinine is down to 1.39 from 1.8 yesterday. Patient remains on D5W at 50 mL/hour. He is maintained on the TPN as well. He has had good urine output at about 50 to 75 mL/hour. Oxygen requirement is about the same, maintained on high-flow oxygen. Patient is not examined. Case is discussed with nursing staff. Vital signs are reviewed. This morning blood pressure was 141/85; prior to that 129/71. Heart rate 90 per minute. Patient is afebrile. No significant edema per nursing staff. He has been confused, moving all 4 extremities. Labs show sodium 145, potassium 4.0, chloride 115, BUN 77, serum creatinine 1.39. ASSESSMENT: 1. Acute kidney injury, acute tubular necrosis, secondary to underlying COVID infection, currently improving. 2. Acute hypoxic respiratory failure secondary to COVID pneumonia. 3. Hypernatremia, currently improved. 4. History of deep venous thrombosis/pulmonary embolism, maintained on anticoagulation. PLAN: Continue with D5W at 50 mL/hour. Repeat labs in a.m. MMODL / IJN: [id number] /
[2020-10-29 17:17] LABS: Glucose,Whole Blood 174 mg/dL (75-99)
[2020-10-29 20:41] LABS: Glucose,Whole Blood 188 mg/dL (75-99)
[2020-10-30 07:56] LABS: Glucose,Whole Blood 178 mg/dL (75-99)
[2020-10-30] MEDS: INSULIN ASPART (NovoLOG) 100 UNIT/ML VIAL SQ SCH ×8 (08:06→22:33)
[2020-10-30] MEDS: ALBUTEROL HFA INHALER INHALATION PRN ×3 (08:06→22:01)
[2020-10-30] MEDS: methylPREDNISolone SOD SUCCI 40 MG/ML 1 ML VIAL IV SCH ×2 (08:06→22:33)
[2020-10-30] MEDS: PANTOPRAZOLE 40 MG/10 ML VIAL IVP SCH (08:06)
[2020-10-30] MEDS: INSULIN DETEMIR (LEVEMIR) 100 UNIT/ML SYR SQ SCH (08:07)
[2020-10-30] MEDS: levETIRAcetam IV 500 MG in SODIUM CHLORIDE 0.9% 100 ML IVPB SCH ×2 (08:07→22:33)
[2020-10-30] MEDS: SYMBICORT 160-4.5 MCG INHALER INHALATION SCH ×2 (08:07→22:01)
[2020-10-30] MEDS: VENLAFAXINE HCL 75 MG TAB PO SCH ×2 (08:07→22:33)
[2020-10-30] MEDS: CHOLECALCIFEROL 25 MCG (1000 IU) TABLET PO SCH (08:08)
[2020-10-30] MEDS: NON FORMULARY DRUG (Atomoxetine Hcl [Strattera] 40 MG Capsule) PO SCH (08:08)
[2020-10-30] MEDS: RIVAROXABAN 20 MG TAB PO SCH (08:08)
[2020-10-30] MEDS: MULTIVITAMINS, THERA 1 EACH TAB PO SCH (08:08)
[2020-10-30] MEDS: ASPIRIN 81 MG PO SCH (08:08)
[2020-10-30] MEDS: NON FORMULARY DRUG (Atomoxetine Hcl [Strattera] 60 MG Capsule) PO SCH (08:08)
[2020-10-30] MEDS: METOPROLOL SUCCINATE (ER) 25 MG TAB.ER.24H PO SCH (08:08)
[2020-10-30] MEDS: DEXTROSE 5% IN WATER 1,000 ML IV SCH (08:18)
[2020-10-30] MEDS: [UNRECOGNIZED DRUG - REMARK] IV SCH ×4 (08:19)
[2020-10-30 08:38] LABS: C Reactive Protein 11.9 mg/L (<10.0); Calcium 8.2 mg/dL (8.4-10.2); Magnesium 2.5 mg/dL (1.6-2.3); Phosphorus 2.8 mg/dL (2.5-4.5); Potassium 3.5 mmol/L (3.5-5.1)
[2020-10-30] MEDS ORDERED: Potassium Replacement Protocol 1 EACH MISC MISCELLANE PRN (08:52)
--- NOTE | 2020-10-30 08:55 | XR ---
EXAMINATION TYPE: XR chest 1V portable DATE OF EXAM: 10/30/2020 Comparison: 10/28/2020 Clinical History: 70-year-old male CoVID pneumonia Findings: Bilateral shoulder arthroplasties. Vascular stent of the right apex. Right PICC tip not seen beyond t he mid SVC level. Patchy bilateral opacities persist. 4.2 cm thin-walled cyst at the right mid to low er lung is also unchanged. Heart borderline in size. Impression: Persistent interstitial and patchy opacities bilaterally. 4.2 cm thin-walled cyst/cavitary lesion mid to lower right lung also unchanged from recent priors.
[2020-10-30] MEDS: POTASSIUM CHLORIDE 20 MEQ in WATER FOR INJECTION 1 100ML.BAG IVPB SCH ×2 (09:05→11:31)
[2020-10-30 09:54] LABS: Anisocytosis Slight; HCT 27.2 % (39.0-53.0); HGB 9.2 gm/dL (13.0-17.5); MCHC 33.9 g/dL (31.0-37.0); MCV 97.3 fL (80.0-100.0); Macrocytosis Slight; Mean Platelet Volume 10.4; Platelet Count 92 k/uL (150-450); RBC 2.79 m/uL (4.30-5.90); RDW 16.1 % (11.5-15.5)
[2020-10-30] MEDS: NEBIVOLOL 5 MG TAB PO SCH (10:18)
[2020-10-30 11:16] LABS: Eosinophils # (M) 0.13 k/uL (0-0.7); Monocytes # (M) 0.13 k/uL (0-1.0); Neutrophils % (M) 97 %; Nucleated Red Blood Cells 2 /100 WBC (0-0); Total Cells Counted 200
[2020-10-30 11:17] LABS: Lymphocytes # (M) 0.39 k/uL (1.0-4.8); Neutrophils # (M) 12.51 k/uL (1.3-7.7); Poikilocytosis (M) Present; Polychromasia Present; WBC 12.9 k/uL (3.8-10.6)
--- NOTE | 2020-10-30 11:27 | P.PN ---
Subjective Progress Note Date: 10/30/20 Principal diagnosis: CoVID 19 pneumonia This is a pleasant 70-year-old gentleman follows with Dr. Polo as his primary care provider. He has a history of coronary artery disease, peripheral vascular disease, congestive heart failure, hyperlipidemia, hypertension, PE/DVT, obstructive sleep apnea utilizing CPAP, chronic obstructive pulmonary disease on home oxygen at 2 L/m per nasal cannula. The patient is a 1 week history of increasing shortness of breath, nausea, vomiting, diarrhea, weakness and was seen at [facility] and tested positive for CoVID and was instructed to go to the emergency room. Chest x-ray reveals mild bilateral pulmonary interstitial infiltrates. He is seen today in consultation on the selective care unit. He is currently sitting up in bed. Awake and alert in no acute distress. He is maintaining good O2 saturations in the mid 90s on 2 L/m per nasal cannula. He is afebrile. Hemodynamically stable. White count 4.7. Hemoglobin 12.9. Platelet count 116. Lymphocytes 0.7. D-dimer 0.18. Sodium 139. Potassium 4.3. Creatinine 1.51. LDH 784. C-reactive protein 88.5. Pro Calcitonin 0.22. He's been initiated on Symbicort, albuterol. Endocrine related with Xarelto. On dexamethasone, multivitamin. The patient is seen today 10/11/2020 in follow-up on the selective care unit. He is currently sitting up in bed. Awake and alert in no acute distress. He is requiring 3 L nasal cannula to maintain O2 saturations 88% and higher. He is normally on 2 L at home. He denies any worsening shortness of breath. He continues with a loose nonproductive cough. He is maintained on dexamethasone, vitamin supplements. Anticoagulated with Xarelto. 10/12/2020 the patient is being seen in follow-up in the selective units. The patient has been diagnosed having Covid 19 related pneumonia. The patient is 70 years old and he is known to have coronary artery disease, peripheral vascular disease, congestive heart failure, hyperlipidemia, hypertension, PE/DVT, obstructive sleep apnea utilizing CPAP, chronic obstructive pulmonary disease on home oxygen at 2 L/m per nasal cannula. The patient is currently maintained on dexamethasone, vitamin supplements. Anticoagulated with Xarelto. The patient's pulmonary status overnight decompensated. The patient had the replacement high flow oxygen at 60 L with an FiO2 of 60%. Chest x-ray showed diffuse bilateral pulmonary infiltrates, mostly peripheral, consistent with Covid 19 pneumonia, probably there is some interval worsening. The patient has bilateral shoulder replacement. The blood gases from yesterday showed a pH of 7.45 with a pCO2 of 38 and pO2 of 63. His inflammatory markers from today are elevated. LDH level is up to 1228 and a CRP level is up to 85. Need 2020, the patient is still on high flow oxygen at 60 L with an FiO2 of 55%. Based on the significant drop in oxygenation, which The patient on steroids and the patient is currently on Decadron and we added Toci 400 mg and the patient received only 1 dose. He is going to receive his second dose of 400 mg today. Patient's oxygenation is stable. D-dimer is down at 0.33. His LDH level is at 1228 and the CRP is at 85. The chest x-ray from yesterday showed bilateral patchy pulmonary infiltrates. The patient has approximately 2 fibrillation and is maintained on Xarelto. The patient also is known to have coronary artery disease, peripheral vascular disease, congestive heart failure, hyperlipidemia, hypertension, PE/DVT, obstructive sleep apnea utilizing CPAP, chronic obstructive pulmonary disease on home oxygen at 2 L/m per nasal cannula. On 10/14/2020, the patient is gradually getting worse. He was desaturating despite being on high flow oxygen at 60 L and an FiO2 of 90% and he is also utilizing 100% nonrebreather facemask. Note that this patient has been treated aggressively. He received Decadron. He also received 2 doses of Tocilizumab. . The patient had a d-dimer of 1.06 and the rest of the inflammatory markers are still pending for now. Meanwhile, his labs are essentially within normal limits and his creatinine is down to 1.2. He remains on Decadron 6 mg IV every 24 hours. He is also on long-term antibiotic ventilation with Xarelto 20 mg by mouth daily. Note that the patient has previous history of DVT and pulmonary embolism. He has obstructive sleep apnea and he has COPD and is maintained on oxygen at 2 L per minute at home for chronic hypoxic respiratory failure. He has hypertension and hyperlipidemia congestion heart failure and peripheral vascular disease in addition to CABG as comorbid conditions. His last chest x- ray was from 09/14/2020 and a repeat chest x-ray will be ordered. His last chest x-ray showed diffuse breath and pulmonary infiltrates, mainly the peripheries consistent with Covid 19 related pneumonia. 10/15/2020, the patient is currently in the intensive care unit. Just like yesterday, he remains on high flow oxygen 6 L with an FiO2 of 90% and the patient is also utilizing 100% nonrebreather facemask. His current pulse ox is around 91%. He is comfortable. Is at the rate is in the low 30s. His chest x- ray from today showing stable bilateral pulmonary infiltrates without any major interval change compared to yesterday. His blood work from today shows no electrolyte abnormalities, creatinine stable at 1.2. His inflammatory markers are still pending. CRP is down to 29, LDH is pending for now. The d-dimer is at 1.85. In terms of therapy, and he is on IV Solu-Medrol 60 mg every 6 hours is also on multivitamins and he remains on long-term anticoagulation with Xarelto. He is lethargic. Oral intake is quite diminished at this point in time. No altered mentation. Is able to follow commands appropriately. He is weak. He is known to have COPD, previous bypass, hypertension and hyperlipidemia and peripheral vascular disease. He is also known to have CHF. He does have a remote history of DVT and pulmonary embolism. He remains in the ICU for now. He got transferred to the ICU yesterday because of ongoing difficulties with shortness of breath and hypoxemia. His echocardiogram from 2018 was essentially within normal limits and he had a normal ejection fraction. 10/16/2020, Rayo is on 60 L of oxygen along with an FiO2 of 90% and the patient is on 100% nonrebreather facemask. He is quite comfortable. He takes of his main for feeding purposes. During this time, he desaturates and is relatively asymptomatic while he desaturates. He goes down to the 80s and he recovers. He is not tachypneic. He is resting comfortably in bed. In terms of treatment, the patient remains on IV Solu Medrol 60 mg every 6 hours. He is on long-term anticoagulation with Xarelto. His chest x-ray from today is reviewed and is showing some limited improvement in the bilateral interstitial infiltrates seen earlier. In terms of his inflammatory markers, his LDH from yesterday and today has not been checked. His last LDH level was on 10/14/2020 was 1797. His CRP level has dropped down to 16.3. His d-dimer level is at 4.08. As mentioned, the patient is on anticoagulation and he is on Xarelto. He is also on Lasix and he is receiving Lasix 40 mg IV every 24 hours. Neck fluid balance over the past 24 hours has been -2.2 L and is responding nicely to diuretics and his weight is declined. No other significant issues. No altered mentation. No agitation. No confusion. No nausea. No vomiting. No diarrhea. No abdominal pain. No chest pain. He is known to have CAD, previous bypass, hypertension and hyperlipidemia and peripheral vascular disease. He also has history of DVT and pulmonary embolism remains on anticoagulation. 10/17/2020, the patient is on high flow oxygen at 60 L along with FiO2 of 90%. Chest x-ray showing infiltrates mainly on the left compared to the right. Lung volumes are essentially small. No major interval change compared to yesterday, the right lung is obviously better compared to the chest x-ray yesterday. In terms of his clinical status, the patient is feeling that he is less short of breath compared to yesterday. He has occasional cough. No chest pain. He is able to get rid of his 100% nonrebreather facemask and tolerate his diet. He is taking approximately 50% of his diet provided. He remains on IV Solu-Medrol. He remains on long-term articulation with Xarelto. LDH and CRP are being monitored. The levels were quite elevated and the LDH today's 2785 and the CRP is 11.3. The BUN is a 54 with a creatinine of 1.09. Electrolytes are normal, d-dimer is at 6.88, and the CBC showing a white cell count of 15.8 with a hemoglobin of 13.7. No confusion. No altered mentation. Fluid balance is in order of -2.4 L. He is getting Lasix 40 mg IV every 24 hours. No other significant events overnight A 2020 the patient is being seen for a follow-up. Currently he is on a combination of high flow oxygen 6 L with an FiO2 of 90% and the same time the patient is on a nonrebreather facemask 100%. Pulse ox is currently ranging between 80% up to 88% and it fluctuates. Overnight, he became slightly more restless and agitated. He pulled on his masks and he became briefly hypoxic and had to be placed again. As stated, his overall respiratory status quite borderline. He is a case of Covid 19 related pneumonia. On IV Solu-Medrol 60 mg every 6 hours. In terms of his inflammatory markers today, the patient's LDH level is up to 3174 and his CRP level is also at 5.9. D-dimer is at 11.45. He is on anticoagulation and is receiving Xarelto on a daily basis . His chest x- ray is showing limited by system place, change compared to yesterday. On examination, he has adequate air entry bilaterally. His fluid balance over the past 24 hours has been in the order of -2.4 L and the patient is diuresing adequately. His body weight is also on the decline. His blood work today shows a BUN of 54 with a creatinine of 1.09 and the sodium level is at 139. His white cell count 15.8 with hemoglobin 13.7 and a adequate platelet count of 239. No other significant events otherwise for now. Active issue remains is ongoing respiratory insufficiency and high oxygen requirements. The patient is seen today 10/19/2020 in follow-up in the intensive care unit. He is currently sitting up in bed. Awake and alert in no acute distress. He is still requiring airflow high flow oxygen at 15 L/m and 90% FiO2 along with a nonrebreather mask to maintain O2 saturations in the high 80s low 90s. He did receive Tocilizumab. He is currently on Solu-Medrol 60 mg every 6 hours, bronchodilators. Anticoagulated with Xarelto. Receiving IV diuretics. Remains in a negative balance. Chest x-ray continues to show bilateral patchy infiltrates. No evidence of pneumothorax. White count 19.1. Hemoglobin 14.1. D-dimer 11.6. Sodium 137. Potassium 4.4. Creatinine 1.0. LDH 2962. C- reactive protein 5.4. The patient is seen today 10/20/2020 in follow-up in the intensive care unit. He is currently sitting up in bed. Awake and alert in no acute distress. He is still very weak and fatigued. He has very little reserve. Any little movement decreases his oxygen saturations. He is currently on AirVo high flow oxygen at 60 L and 90% FiO2 along with a nonrebreather mask. He's been on IV Solu-Medrol 60 every 6, Xarelto, bronchodilators. Received tocilizumab. Chest x-ray continues to show bilateral interstitial infiltrates with trace effusions. He remains on IV diuretics.. Plan to add Zosyn. Pro-calcitonin pending. White count up to 21.3. Hemoglobin 14.3. Sodium 136. Potassium 4.5. Creatinine 1.07. C-reactive protein less than 5.0. The patient is seen today 10/21/2020 in follow-up in the intensive care unit. He is currently awake and alert in no acute distress. Resting fairly comfortably in bed. Still quite fatigued and weak. Slightly better today compared to yesterday. Remains on AirVo high flow oxygen at 60 L and 90% FiO2 and a nonrebreather mask to maintain O2 saturation in the low to mid 80s. He's been afebrile. White count 27.3. Hemoglobin 15.0. D-dimer 9.89. Sodium 138. Potassium 4.6. Creatinine 1.11. LDH 2774. C-reactive protein less than 5.0. He's been on IV Solu-Medrol 60 every 6, Xarelto, bronchodilators. Received tocilizumab. Chest x-ray shows some worsening left lung infiltrate. Bibasilar patchy infiltrates. He was initiated on Zosyn. Procalcitonin 0.09. He remains on daily IV Lasix. Currently in a negative balance. Patient was reevaluated today on 10/22/2020, remains in the ICU, looks frail and chronically ill, looks weak, remains on high flow oxygen via airvo he is on 80% which was increased earlier to 90% and he is also on 60 L flow. After evaluating the patient today, I transitioned the patient to BiPAP, 100% FiO2 with IPAP of 14 EPAP of 16. Chest x-ray continues to show bilateral interstitial infiltrates, not much of a change in the last few days. ABG earlier on 80% FiO2 showed a pO2 of 45 pCO2 of 35 pH of 7.47. Clinically, the patient is comfortable, does not seem to be in distress, and I am not planning to proceed to intubation and mechanical ventilation at least not at this point. However if his condition gets clinically worse, would definitely recommend intubation and mechanical ventilation. Basic metabolic profile today is relatively normal BUN is 64 creatinine 1.17. His inflammatory markers remained relatively elevated. LDH is 2416, C-reactive protein is 5.1 WBC count is 22.7 hemoglobin is 14.3. Patient remains on Solu-Medrol, Xarelto, bronchodilators, and he received actemra. He also remains on Zosyn empirically. Patient was reevaluated today on 10/23/2020, patient remains remains on BiPAP, with IPAP of 14 EPAP of 6, 60% FiO2. Remains on Xarelto, his overall clinical status is marginal at best. Patient had an episode of confusion yesterday as he went to the bathroom, and he pulled his PICC line, a right femoral line was placed by Dr. Ramos shortly after. Patient is generally weak, lethargic, but arousable, follows simple instructions, and he tells me that he feels fine ABC showed leukocytosis with WBC of 24.3 hemoglobin is 14.7 and at rest are normal BUN is 73 creatinine 1.34. Liver enzymes are relatively elevated. Chest x-ray continues to show bilateral interstitial opacities with a small tiny trace of right-sided pleural effusion Reevaluated today , patient is basically about the same. Remains on BiPAP with the same settings as above, FiO2 was cut down to 55%. He is on IPAP of 14 and EPAP of 6. Remains on the Covid 19 cocktails. No major change in the last 24 hours Liver enzymes remain borderline elevated. D-dimer is 5.49. Electrolytes are normal except for elevated sodium and chloride. BUN is 75 creatinine is 1.28. W a count is 21.6 hemoglobin is 14.3. The patient is seen today 10/25/2020 in follow-up in the intensive care unit. He remains on BiPAP 14/6 and 55% FiO2. He is somewhat more obtunded today. Difficult to arouse. But able to wake up enough to take his medications. His knees are somewhat mottled. He is maintaining O2 saturations in the low 90s. He has 0.9 normal saline at 50 MLS per hour. Remains on IV Solu-Medrol, bronchodilators, Xarelto. White count 20.7. Hemoglobin 13.9. Lymphocytes 0.2. Sodium 157. Potassium 4.4. Creatinine 1.51. Progress note dated 10/24/2020. This is a 71-year-old male who was admitted to the hospital on October 09. He came in with a diagnosis of COVID 19 pneumonia. The patient was transferred to the intensive care unit on October 15. Currently, the patient remains on BiPAP, settings of IPAP 14, EPAP 6, and 55%. The patient's also getting D5W to 150 mL an hour. He did receive 2 doses of TOCI. Unfortunately, the patient has pulled out all his IVs including 2 central lines. A PICC line will be placed today so he can get nutrition. White count 23,000, hemoglobin 11.9, hematocrit 34.8, platelet count 138,000. PT 14, INR 1.4, PTT is 20.7, and d-dimer is 3.74. Sodium is down to 150 from 157, potassium 4.2, chlorides 118, CO2 26, anion gap 6, BUN 95, creatinine 1.94. LDH is 9. Ferritin is 2227. Chest x-ray continues to show bilateral interstitial patchy infiltrates, and a pneumatocele in the right midlung. Progress note dated 10/27/2020. 71-year-old male, admitted to the hospital on October 09. He came in with a diagnosis of COVID 19 pneumonia. Currently, he is on AIRVO, settings of 55 L/m flow, FiO2 of 55%. Saturations are in the low 90s. Is getting D5W at 150 mL an hour, and TPN at 30 mL an hour. His sodium is down to 145. In addition, he received Haldol last night, 8 mg IV. He had a right upper extremity double- lumen PICC line placed yesterday. The arterial line to be discontinued as is nonfunctional. Other than that, the patient is doing about the same. White count 14.4, he will be 10.2, hematocrit 30.6, platelet count 104,000. Sodium 145, potassium 4.4, chlorides 115, CO2 22, anion gap 8, BUN 112, creatinine 2.12. Chest x-ray from October 27, is unchanged. The patient is seen today 10/28/2020 in follow-up in the intensive care unit. He is currently resting fairly comfortably in bed. Remains on AirVo high flow oxygen at 55 L/m and 55% along with a nonrebreather mask. O2 saturations remaining in the low 90s. He is currently being nourished with TPN at 50 MLS per hour, D5 W at 50 mL per hour. White count 15.1. Hemoglobin 9.9. Platelets 97. D-dimer 2.83. Sodium 145. Potassium 4.0. Creatinine 1.88. Remains on bronchodilators, IV Solu-Medrol, Xarelto. More calm and cooperative today. The patient is seen today 10/29/2020 in follow-up in the intensive care unit. Awake and alert. Resting fairly comfortably in bed. He remains on Arava pro-flow oxygen at 55 L/m and 55% FiO2 along with a nonrebreather mask. Sats averaging 85-94%. He has D5W at 50 MLS per hour. TPN at 50 MLS per hour. Sodium 145. Potassium 4.0. Creatinine 1.39. Remains on IV Solu-Medrol, Symbicort, albuterol. Continued on vitamin supplements. Anticoagulated with Xa relto. The patient is seen today 11/09/2020 in follow-up in the intensive care unit. He is currently resting fairly comfortably in bed. He did take his oxygen off yesterday and had significant desaturation. He has required cloth restraints. He is requiring Haldol at times. He is currently on the AirVo high flow oxygen at 60 L/m and 90% FiO2. Being nourished with TPN at 50 MLS per hour. D5W at 50 MLS per hour. Chest x-ray continues to show persistent interstitial and patchy opacities bilaterally. 4.2 cm thin-walled cyst/cavitary lesion mid to lower right lung unchanged. White count 12.9. Hemoglobin 9.2. D-dimer 2.73. Sodium 134. Potassium 3.5. Creatinine 1.01. LDH 2627. C-reactive protein 11.9. Remains on Symbicort, albuterol, IV Solu-Medrol. Anticoagulated with Xarelto. Objective - Vital Signs Vital signs: Vital Signs Temp 98.5 F 10/30/20 08:00 Pulse 90 10/30/20 10:00 Resp 32 H 10/30/20 10:00 BP 146/80 04/09/21 10:00 Pulse Ox 94 L 10/30/20 10:00 Intake & Output 10/29/20 10/30/20 10/30/20 18:59 06:59 18:59 Intake Total 2242.5 2216 1170 Output Total 845 900 330 Balance 1397.5 1316 840 Weight 109.8 kg Intake: IV 1200 1100 750 Dextrose 5% in Water 1, 550 550 650 000 ml @ 50 mls/hr IV . Q20H [facility] Rx#:[id number] Mvi, Adult No.4 with Vit 150 K 10 ml Trace (Conc-1Ml/ Dose) 1 ml In Amino Acid 5%-D15w 1,000 ml @ 50 mls /hr IV .[id number] FRANCES Rx#: [id number] Mvi, Adult No.4 with Vit 400 550 100 K 10 ml Trace (Conc-1Ml/ Dose) 1 ml Potassium Acetate 10 meq In Amino Acid 5%-D15w 1,000 ml @ 50 mls/hr IV .[id number] [facility]ANCES Rx#:[id number] levETIRAcetam IV 500 mg 100 In Sodium Chloride 0.9% 100 ml @ 400 mls/hr IVPB Q12HR [facility]ANCES Rx#:[id number] Intake, IV Titration 992.5 1116 300 Amount Mvi, Adult No.4 with Vit 992.5 1016 K 10 ml Trace (Conc-1Ml/ Dose) 1 ml Potassium Acetate 10 meq In Amino Acid 5%-D15w 1,000 ml @ 50 mls/hr IV .[id number] [facility]ANC[facility] Rx#:[id number] Mvi, Adult No.4 with Vit 100 K 10 ml Trace (Conc-1Ml/ Dose) 1 ml Potassium Acetate 20 meq In Amino Acid 5%-D15w 1,000 ml @ 50 mls/hr IV .[id number] [facility]ES Rx#:[id number] Potassium Chloride 20 meq 100 In Water For Injection 1 100ml.bag @ 50 mls/hr IVPB Q2H [facility] Rx#: [id number] levETIRAcetam IV 500 mg 100 100 In Sodium Chloride 0.9% 100 ml @ 400 mls/hr IVPB Q12HR [facility] Rx#:[id number] Oral 50 120 Output: Urine 845 900 330 Other: Voiding Method Indwelling Catheter Indwelling Catheter Indwelling Catheter ABP, PAP, CO, CI - Last Documented Arterial Blood Pressure 69/48 - Labs CBC & Chem 7: 10/30/20 09:00 10/30/20 06:00 Labs: Abnormal Lab Results - Last 24 Hours (Table) 10/29/20 10/29/20 10/29/20 Range/Units 11:58 17:16 20:39 WBC (3.8-10.6) k/uL RBC (4.30-5.90) m/uL Hgb (13.0-17.5) gm/dL Hct (39.0-53.0) % RDW (11.5-15.5) % Plt Count (150-450) k/uL Neutrophils # (Manual) (1.3-7.7) k/uL Lymphocytes # (Manual) (1.0-4.8) k/uL Nucleated RBCs (0-0) /100 WBC D-Dimer (<0.60) mg/L FEU Chloride (98-107) mmol/L BUN (9-20) mg/dL Glucose (74-99) mg/dL POC Glucose (mg/dL) 193 H 174 H 188 H (75-99) mg/dL Calcium (8.4-10.2) mg/dL Magnesium (1.6-2.3) mg/dL Lactate Dehydrogenase (313-618) U/L C-Reactive Protein (<10.0) mg/L 10/30/20 10/30/20 10/30/20 Range/Units 06:00 06:00 07:55 WBC (3.8-10.6) k/uL RBC (4.30-5.90) m/uL Hgb (13.0-17.5) gm/dL Hct (39.0-53.0) % RDW (11.5-15.5) % Plt Count (150-450) k/uL Neutrophils # (Manual) (1.3-7.7) k/uL Lymphocytes # (Manual) (1.0-4.8) k/uL Nucleated RBCs (0-0) /100 WBC D-Dimer 2.73 H (<0.60) mg/L FEU Chloride 114 H (98-107) mmol/L BUN 56 H (9-20) mg/dL Glucose 162 H (74-99) mg/dL POC Glucose (mg/dL) 178 H (75-99) mg/dL Calcium 8.2 L (8.4-10.2) mg/dL Magnesium 2.5 H (1.6-2.3) mg/dL Lactate Dehydrogenase 2627 H (313-618) U/L C-Reactive Protein 11.9 H (<10.0) mg/L 10/30/20 Range/Units 09:00 WBC 12.9 H (3.8-10.6) k/uL RBC 2.79 L (4.30-5.90) m/uL Hgb 9.2 L (13.0-17.5) gm/dL Hct 27.2 L (39.0-53.0) % RDW 16.1 H (11.5-15.5) % Plt Count 92 L (150-450) k/uL Neutrophils # (Manual) 12.51 H (1.3-7.7) k/uL Lymphocytes # (Manual) 0.39 L (1.0-4.8) k/uL Nucleated RBCs 2 H (0-0) /100 WBC D-Dimer (<0.60) mg/L FEU Chloride (98-107) mmol/L BUN (9-20) mg/dL Glucose (74-99) mg/dL POC Glucose (mg/dL) (75-99) mg/dL Calcium (8.4-10.2) mg/dL Magnesium (1.6-2.3) mg/dL Lactate Dehydrogenase (313-618) U/L C-Reactive Protein (<10.0) mg/L
[2020-10-30 11:36] LABS: Glucose,Whole Blood 161 mg/dL (75-99)
[2020-10-30 11:51] LABS: Glucose,Whole Blood 149 mg/dL (75-99)
[2020-10-30 12:00] VITALS: BMI 32.8
--- NOTE | 2020-10-30 12:29 | P.PN ---
Subjective Progress Note Date: 10/30/20 HISTORY OF PRESENT ILLNESS This is a 70 years old male patient of Dr. Polo with past medical history of pulmonary embolism diagnosed in [place] 2 years ago, history of lower extremity DVT, coronary artery disease no stent, history of heart failure unknown if systolic or diastolic, COPD, hyperlipidemia, hypertension, osteoarthritis, prostate cancer, skin disorder,'s obstructive sleep apnea on CPAP, subclavian steal syndrome with stent placement, history of recent penile implant on 07/27/2016. Patient has chronic shortness of breath that has been going on for the past 2 years since the diagnosis of pulmonary embolism with O2 requirements at 2 L nasal cannula Patient is currently on maintenance dose of xarelto at 10 mg daily. He presents emergency room secondary to worsening dyspnea, x 7 days without any medical intervention prior to this, He was seen in the Emergency room for the shortness of breath, worsening dyspnea and exertion, and was found to be SARS cov 2 positive. Chest x-ray, shows bilateral pulmonary interstitial infiltrates compared to old exam, with a similar atelectasis. Poor inspiration, no hilar masses laboratory shows hemoglobin of 12.9, WBC count of 7, creatinine of 1.47, iron of 1.2, glucose 120 CRP 88, pro-calcitonin slightly elevated 0.22. Patient denies any chronic prednisone exposure, Consult were made with pulmonary, Dr. Ramos, pulse oximetry would be 9 PT 1697 at 2-3 L nasal cannula, blood pressure of 129/66. 10/11: Patient was seen for follow-up today, he is a little bit tachypnea, very small amount of labored breathing only on exertion, no conversational dyspnea, O2 at 2 L, sats 95%, no clearance from pulmonary medicine are stable were rounding today, no cough, no pleurisy, no chest pain no palpitations, creatinine at 1.5 today, electrolytes are normal, wbc of 4.7, LDH of 784, ferritin 533 patient is on IV dexamethasone maintained on Xarelto, no new treatment from pulmonary critical care today, currently stable 10/12: A-Team is called during the night due to hypoxia and patient was started on AirVo. Respiratory rate is been in the 40s, heart rate 74, afebrile, pulse ox 96%. Chest x-ray from yesterday revealed patchy. Hilar and basilar infiltrates persist and have progressed slightly in the interval. Repeat blood work reveals WBC 6.8, hemoglobin 12.4, platelet count 135. LDH 1228. C- reactive protein 85.1. The patient has developed increasing difficulty with breathing. He denies having any chest pain. He states he could not sleep through the night. 10/13: Patient states that his breathing status is about the same as yesterday or little bit more difficult. He denies any coughing up blood. He denies any abdominal pain, nausea or vomiting, no diarrhea. Patient remains on Arava with pulse ox of 88-90%. Afebrile, heart rate 69, respiratory rate 40, blood pressure 137/76. Patient is status post 2 doses of Tocilizumab. patient is followed closely by pulmonary medicine. 10/14: Patient is currently on AirVo and nonrebreather but states that he is feeling better today and that his breathing is better. He has been afebrile, heart rate 72, respiratory rate 36, blood pressure 130/70, pulse ox 90%. He denies having abdominal pain, nausea vomiting or diarrhea. He remains on Solu- Medrol 60 mg IV every 6 hours. 10/15: Patient was transferred to the ICU per Dr. Wright. He is currently on AirVo only at time of evaluation and is eating his breakfast. Patient has been maintained on Arava plus nonrebreather. His breathing status appears to be improved from yesterday. His pulse ox is 88%. Afebrile, heart rate 76, respiratory rate 25, blood pressure 131/81. Repeat chest x-ray reveals stable chest. Repeat blood work reveals normal CBC. D-dimer 1.85. C-reactive protein 29. LDH is pending. Ferritin level 1340.6. Patient is scheduled for PICC line insertion today. Lasix 40 mg IV push ordered today by pulmonary medicine. Patient is continued on Solu-Medrol 60 mg every 6 hours. Patient not receiving any antibiotics at this time. 10/16: Patient remains in the intensive care unit. He was off nonrebreather and only on AirVo yesterday most of the day. Now he is on both AirVo and nonrebreather and taking the nonrebreather on and off as he needs it. He is eating 50% of his meals. He has been afebrile, heart rate 69, respiratory rate 34, blood pressure 142/80, pulse ox 88% on both AirVo and nonrebreather. Repeat blood work reveals W BC 13.5, hemoglobin 13.6, platelet count 247. Electrolytes normal. BUN 52 and creatinine 1.2. Blood sugars running between 120 975. Total bilirubin 1.0, AST 111, ALT 137, alkaline phosphatase 80. C-reactive p rotein 16.3, CK 65. Repeat chest x-ray reveals bilateral lower lobe infiltrate and small effusion with coarsened interstitium correlate for venous congestion versus interstitial pneumonia. Patient surprisingly feels his breathing is stable. He has no new complaints. 10/17: Patient remains in intensive care unit. He has been off the nonrebreather for the past hour and a half with only AirVo with pulse ox in the high 80s. He has been afebrile, heart rate in the 70s, blood pressure 142/86, respiratory rate in 30s. Patient verbalizes that his breathing status is improving. Repeat blood work reveals WBC 15.8, hemoglobin 13.7, platelet count 239. Electrolytes normal. BUN 54 and creatinine 1.09. Blood sugars running between 120 765. Total bilirubin 1.5, AST 195, ALT 304, alkaline phosphatase 92, LDH 2785. CK 51, C-reactive protein 11.3. Repeat chest x-ray reveals mild interval pro gression in the lung infiltrates within the right lung. Left lung is stable. No change in small bilateral pleural effusions. 10/18: Patient remains in intensive care unit. He is seen today on AirVo and nonrebreather and pulse ox has been marginal in the low to mid 80s. Heart rate is in the 70s, respiratory rate in the 30s, blood pressure 136/87. He has been afebrile. Repeat blood work reveals WBC 18.4. Electrolytes normal, BUN 59 and creatinine 1.03. Blood sugars running between 126 and 166. Ferritin level 1817. D-dimer 11.45. Total bilirubin 1.7, AST 128, ALT 309, alkaline phosphat ase 121. LDH 3174. CK 98, C-reactive protein 5.9. Repeat chest x-ray reveals left perihilar and basilar infiltrates persist 10/19: Patient's breathing status remains about the same. He has been afebrile, heart rate 70s, respiratory rate 29, blood pressure 143/87. Pulse ox is running mid to high 80s with nonrebreather and high flow nasal cannula. WBC 19.1, hemoglobin 14.1, platelet count 247. D-dimer 11.64. Electrolytes normal. BUN 55 and creatinine 1.05. Blood sugars running between 124 and 197. Ferritin 1583. Total bilirubin 1.4, AST 99, ALT 266, alk phos was 123. LDH 2962. C-re active protein 5.4. Repeat chest x-ray shows no pneumothorax. Interstitial and patchy bilateral infiltrates. 10/20: Patient remains in the intensive care unit and he is currently on nonrebreather and high flow nasal cannula. Pulse ox is running 86-91%. He has been afebrile, heart rate in the 70s, respiratory rate 29, blood pressure 145/81. WBC 21.3. Sodium 136, BUN 57 and creatinine 1.07. Blood sugars running between 100 3459. Ferritin level 1616. Total bilirubin 1.8, AST 87, ALT 262, alkaline phosphatase 131. C-reactive protein normal at less than 5. Repeat chest x-ray reveals relatively stable with interstitial infiltrates and possible trace effusions. 10/21:patient remains in the intensive care unit. He is on Arava oh and nonrebreather with pulse ox in the mid 80s. Patient has been afebrile.Heart rate in the 70s and 60s, respiratory rate in the mid to high 20s, pulse ox a nywhere between 81-89%, blood pressure 119/81. WBC 27.3, hemoglobin 15, platelet count 202. Electrolytes normal, BUN 61 and creatinine 1.11. Blood sugars running between 141 and 158. Ferritin level 1639, total bilirubin 2.0, AST 104, ALT 296, alkaline phosphatase 136. LDH 2774. C-reactive protein less than 5. Patient is continued on Zosyn, IV Solu-Medrol heart rate in the 60s and 70s, respiratory rate in the 20s n and IV Lasix. 10/22: Patient remains in the intensive care unit currently on BiPAP. Patient had some increased anxiety this morning was given Xanax and was lethargic following with desats and subsequently placed on BiPAP. He's been running high 90s for pulse ox. He's been afebrile, heart rate in the 70s, respiratory rate in the 20s to 30s, blood pressure 125/91. Repeat blood work reveals W BC 22.7, hemoglobin 14.3, platelet count 173. Electrolytes are normal except for CO2 of 31, BUN 64 and creatinine 1.17. Ferritin 1475.9. Total bilirubin 2.3, AST 88, ALT 281, alkaline phosphatase 133. LDH 2416. Blood sugars running between 144 and 158. Repeat chest x-ray reveals mild diffuse increased lung opacities. Patient is continued on Zosyn, Solu-Medrol. Patient may require intubation. 10/23: The patient remains on BiPAP with pulse ox between 86 and 92 with FiO2 of 60%, respiratory rate anywhere between 28 and 40, heart rate in the 80s, afebrile. Patient is getting tired and fatigued. He actually pulled his PICC line out and arterial line and femoral triple-lumen catheter was placed. Repeat chest x-ray reveals similar diffuse bilateral interstitial opacities. Possible trace right effusion. Patient's mental status is stable today. He did have some mild confusion and lethargy yesterday. WBC 24.3. BUN 73 and creatinine 1.34. Blood sugars running between 140 154. Total bilirubin 3.1, AST 117, ALT 329, alkaline phosphatase 137. 10/26: Patient remains in the intensive care unit on BiPAP. Pulse ox is 89-93% on BiPAP of 55% FiO2. Respiratory rate in the 30s, afebrile, heart rate in the 80s and 90s, blood pressure 101/69. Repeat blood work reveals W BC 23.0, hemoglobin 11.9, platelet count 138. INR is 1.4. D-dimer 3.7 following her. Sodium 150, potassium 4.2, chloride 118, CO2 26, BUN 95 and creatinine 1.94. Blood sugars running between 124 and 214. Total bilirubin 3.8, AST 132, ALT 407, alkaline phosphatase 83. LDH 2059. CK 272. Patient's IV fluids were switched to D5 yesterday at 150 mL per hour and IV Lasix was discontinued with improvement of his sodium. Patient pulled out his central line. Prognosis is guarded. 10/27: Patient is afebrile, heart rate 96, respiratory rate 27, blood pressure 120/72, pulse ox 90-95 percent on AirVo with FiO2 of 70%. Patient was decreased to 55% and he seems to be desats into the low 80s. Repeat blood work reveals WBC 14.4, hemoglobin 10.3, platelet count 104. Sodium 145, potassium 4.5, chloride 115, CO2 22, BUN 112 and creatinine 2.12. Blood sugars running between 186 and 290. Phosphorus 5.2, magnesium 3.2, total bilirubin 3.4, AST 97, ALT 310, alkaline phosphatase 75. C-reactive protein 6.4. Patient has been started on TPN. 10/28: She remains on AirVo with pulse ox in the low 90s, he has soft restraints in place, mild confusion. Patient has been afebrile, heart rate 96, blood pressure 122/66. Respiratory rate 20-30. Repeat blood work reveals WBC 15.1, hemoglobin 9.9, platelet count 97. D-dimer 2.83. BUN 100 and creatinine 1.88. Magnesium 3.0. Ferritin 1385, AST 116, ALT 279, alkaline phosphatase 83, CK 479. Repeat chest x-ray reveals scattered interstitial infiltrates persist. Patient has been seen by nephrology with recommendations to decrease IV fluids, DC phosphorus and TPN. Renal ultrasound revealed nonvisualization of the left kidney. Right kidney demonstrates no evidence of hydronephrosis or nephrolithiasis. Cortical thinning suggest chronic medical renal disease. 10/29: Patient remains in the intensive care unit, mild confusion, no restraints in place. Pulse ox is running about 90 on nonrebreather mask and high flow nasal cannula. Patient has been afebrile, heart rate 103, respiratory rate 32, blood pressure 136/60. Monitor is sinus rhythm. Repeat blood work reveals sodium 145, potassium 4.0, chloride 115, CO2 26, BUN 797 and creatinine 1.39. Blood sugars running 189-225. Insulin will be increased to 15 units Levemir daily and add NovoLog 3 units with meals and before bed and continue NovoLog scale. The patient is refusing all meals only able to eat a few bites. He is on TPN and dextrose IV fluids. 10/30: Patient remains on both nonrebreather and AirVO with pulse ox in the low 90s up to 95. Respiratory rate 32, heart rate 92, afebrile, blood pressure 133/75. Repeat blood work reveals WBC 12.9, hemoglobin 9.2, platelet count 92. D-dimer 2.73. Creatinine 1.01. Blood sugar 162-188. Phosphorus 2.8, magnesium 2.5, potassium 3.5. LDH 2626. C-reactive protein 11.9. Patient has held all 4 agitation area he is continued on IV Solu-Medrol 60 mg every 6 hours, anticoagulation is with Xarelto. Patient is on TPN. REVIEW OF SYSTEMS Constitutional: Denies fever, no chills, no night sweats. Generalized weakness, reports fatigue. Her stay time sleepiness. EENT: No headache. No nasal drainage or congestion. No sore throat. Lungs: Reports shortness of breath, reports cough, no sputum production. No wheezing. reports dyspnea with exertion. Cardiovascular: No chest pain, no lower extremity edema. No palpitations. No paroxysmal nocturnal dyspnea. No orthopnea. No lightheadedness or dizziness. No syncopal episodes. Abdominal: No abdominal pain. No nausea, vomiting. No diarrhea. No constipation. No bloody or tarry stools reports loss of appetite. Genitourinary: No dysuria, increased frequency, urgency. No urinary retention- Pike in place. Musculoskeletal: No myalgias. Reports muscle weakness. No back pain. No neck pain. Integumentary: No wounds, no lesions. No rash or pruritus. Neurologic: No aphasia. No facial droop. Noted change in mentation. No head injury. No headache. Psychiatric: No depression. No anxiety. No mood swings. Reports insomnia. Endocrine: Noted abnormal blood sugars. No weight change. PHYSICAL EXAMINATION Gen: This is a 70-year-old male. He is resting in ICU bed and appears to be fatigued. Patient is on AirVo and NRB. HEENT: Head is atraumatic, normocephalic. Pupils equal, round. Sclerae is anicteric. NECK: Supple. No JVD. No lymphadenopathy. No thyromegaly. LUNGS: Few scattered rhonchi and scattered expiratory wheezing. Mild intercostal retractions. HEART: Regular rate and rhythm. No murmur. ABDOMEN: Soft. Bowel sounds are present. No masses. No tenderness. EXTREMITIES: No pedal edema. No calf tenderness. Dorsalis pedis palpable bilaterally. NEUROLOGICAL: Patient is awake, alert and oriented to person and place. Generalized weakness noted. Generalized fatigue noted. ASSESSMENT AND PLAN 1. Acute SARS COV2, infection with acute hypoxic respiratory failure. Continue current management per pulmonary medicine. Continue Solu-Medrol 40 mg every 12 hours, albuterol inhaler as needed, Symbicort inhaler twice daily. Continue vitamin D. Patient is status post 2 doses of Tocilizumab. Continue Incentive spirometry. Patient may require intubation. Monitor inflammatory markers. 2. Thrombocytopenia secondary to COVID 19 infection. Continue to monitor. 3. Acute kidney injury secondary to dehydration, poor oral intake. Continue to monitor renal function. Consult with nephrology appreciated. Ultrasound as above. 4. Chronic anticoagulation, secondary to history of DVT. Continue Xarelto. 5. History of DVT of the right leg in December 2013, resolved. 6. COPD. Continue albuterol- Atrovent as needed . Continue Symbicort twice daily 7. Hyperlipidemia. Continue Crestor daily. 8. Subclavian steal syndrome status post stent in the right carotid. 9. Benign prostatic hypertrophy. The catheter. Continue Flomax daily 10. History of coronary artery disease with previous myocardial infarction. 11. Obstructive Sleep apnea. Patient has his own CPAP machine. 12. Gastroesophageal reflux disease and gastric intestinal prophylaxis. Continue tonic's. 13. Hypertension. Continue Toprol-XL 75 mg daily. 14. Depression. Continue Cymbalta 150 mg twice daily. 15. History of ADHD. Strattera on hold. 16. Chronic kidney disease stage III, stable 17. Chronic systolic heart failure and ischemic cardiomyopathy with prior ejection fraction 40%. Continue aspirin 81 mg metoprolol 18. Hyperglycemia secondary to steroids and TPN. Patient placed on Levemir crease to 15 units daily, and 3 units of NovoLog before meals and at bedtime and continue with NovoLog scale. 10. Metabolic encephalopathy secondary to Covid. Patient has been started on held all as needed for agitation. CODE STATUS full code Prognosis guarded. DISCHARGE PLAN TBD. Impression and plan of care have been directed as dictated by the signing physician. Nena Frausto nurse practitioner acting as scribe for signing physician. Objective - Vital Signs Vital signs: Vital Signs Temp 98.5 F 10/30/20 08:00 Pulse 90 10/30/20 10:00 Resp 32 H 10/30/20 10:00 BP 146/80 10/30/20 10:00 Pulse Ox 94 L 10/30/20 10:00 Intake & Output 10/29/20 10/30/20 10/30/20 18:59 06:59 18:59 Intake Total 2242.5 2216 1170 Output Total 845 900 330 Balance 1397.5 1316 840 Weight 109.8 kg Intake: IV 1200 1100 750 Dextrose 5% in Water 1, 550 550 650 000 ml @ 50 mls/hr IV . Q20H [facility] Rx#:[id number] Mvi, Adult No.4 with Vit 150 K 10 ml Trace (Conc-1Ml/ Dose) 1 ml In Amino Acid 5%-D15w 1,000 ml @ 50 mls /hr IV .[id number] [facility] Rx#: [id number] Mvi, Adult No.4 with Vit 400 550 100 K 10 ml Trace (Conc-1Ml/ Dose) 1 ml Potassium Acetate 10 meq In Amino Acid 5%-D15w 1,000 ml @ 50 mls/hr IV .[id number] [facility] Rx#:[id number] levETIRAcetam IV 500 mg 100 In Sodium Chloride 0.9% 100 ml @ 400 mls/hr IVPB Q12HR [facility] Rx#:[id number] Intake, IV Titration 992.5 1116 300 Amount [facility], Adult No.4 with Vit 992.5 1016 K 10 ml Trace (Conc-1Ml/ Dose) 1 ml Potassium Acetate 10 meq In Amino Acid 5%-D15w 1,000 ml @ 50 mls/hr IV .[id number] [facility] Rx#:[id number] [facility], Adult No.4 with Vit 100 K 10 ml Trace (Conc-1Ml/ Dose) 1 ml Potassium Acetate 20 meq In Amino Acid 5%-D15w 1,000 ml @ 50 mls/hr IV .[id number] [facility] Rx#:[id number] Potassium Chloride 20 meq 100 In Water For Injection 1 100ml.bag @ 50 mls/hr IVPB Q2H [facility] Rx#: [id number] levETIRAcetam IV 500 mg 100 100 In Sodium Chloride 0.9% 100 ml @ 400 mls/hr IVPB Q12HR [facility] Rx#:[id number] Oral 50 120 Output: Urine 845 900 330 Other: Voiding Method Indwelling Catheter Indwelling Catheter Indwelling Catheter ABP, PAP, CO, CI - Last Documented Arterial Blood Pressure 69/48 - Labs CBC & Chem 7: 10/30/20 09:00 10/30/20 06:00 Labs: Abnormal Lab Results - Last 24 Hours (Table) 10/29/20 10/29/20 10/29/20 Range/Units 11:58 17:16 20:39 WBC (3.8-10.6) k/uL RBC (4.30-5.90) m/uL Hgb (13.0-17.5) gm/dL Hct (39.0-53.0) % RDW (11.5-15.5) % Plt Count (150-450) k/uL D-Dimer (<0.60) mg/L FEU Chloride (98-107) mmol/L BUN (9-20) mg/dL Glucose (74-99) mg/dL POC Glucose (mg/dL) 193 H 174 H 188 H (75-99) mg/dL Calcium (8.4-10.2) mg/dL Magnesium (1.6-2.3) mg/dL Lactate Dehydrogenase (313-618) U/L C-Reactive Protein (<10.0) mg/L 10/30/20 10/30/20 10/30/20 Range/Units 06:00 06:00 07:55 WBC (3.8-10.6) k/uL RBC (4.30-5.90) m/uL Hgb (13.0-17.5) gm/dL Hct (39.0-53.0) % RDW (11.5-15.5) % Plt Count (150-450) k/uL D-Dimer 2.73 H (<0.60) mg/L FEU Chloride 114 H (98-107) mmol/L BUN 56 H (9-20) mg/dL Glucose 162 H (74-99) mg/dL POC Glucose (mg/dL) 178 H (75-99) mg/dL Calcium 8.2 L (8.4-10.2) mg/dL Magnesium 2.5 H (1.6-2.3) mg/dL Lactate Dehydrogenase 2627 H (313-618) U/L C-Reactive Protein 11.9 H (<10.0) mg/L 10/30/20 Range/Units 09:00 WBC 13.2 H (3.8-10.6) k/uL RBC 2.79 L (4.30-5.90) m/uL Hgb 9.2 L (13.0-17.5) gm/dL Hct 27.2 L (39.0-53.0) % RDW 16.1 H (11.5-15.5) % Plt Count 92 L (150-450) k/uL D-Dimer (<0.60) mg/L FEU Chloride (98-107) mmol/L BUN (9-20) mg/dL Glucose (74-99) mg/dL POC Glucose (mg/dL) (75-99) mg/dL Calcium (8.4-10.2) mg/dL Magnesium (1.6-2.3) mg/dL Lactate Dehydrogenase (313-618) U/L C-Reactive Protein (<10.0) mg/L
[2020-10-30 18:04] LABS: Glucose,Whole Blood 209 mg/dL (75-99)
--- NOTE | 2020-10-30 19:53 | PN ---
PROGRESS NOTE Patient is seen for followup for acute kidney injury associated with underlying COVID pneumonia. Patient's renal function is improving. His creatinine is down to 1.01 today. Case was discussed with nursing staff. He is comfortable. He has not been in acute distress. Oxygen requirements are stable. Patient has good urine output. He has not been eating much. He remains on D5W at 50 mL/hour and TPN. Vital signs are reviewed. Blood pressure was 146/80 this morning, heart rate about 80 per minute. He is afebrile. No significant edema of lower extremities. [employer] EXAM: According to nursing staff, patient has been confused. He is moving all 4 extremities. Labs show hemoglobin 9.2, sodium 144, potassium 3.5, chloride 114. CO2 is 25, BUN 56, creatinine 1.01. ASSESSMENT: 1. Acute kidney injury, acute tubular necrosis, nonoliguric, currently improving. Etiology secondary to underlying COVID-19 pneumonia and infection with inflammatory response. 2. Acute hypoxic respiratory failure secondary to COVID pneumonia. 3. Hypernatremia, improved, currently stable. Maintained on D5W at 50 mL/hour. 4. History of deep venous thrombosis/pulmonary embolism, maintained on anticoagulation in the form of Xarelto. PLAN: Continue with the D5W for now. Monitor electrolytes. Can switch to half-normal saline tomorrow if the sodium continues to improve. MMODL / IJN: [id number] /
[2020-10-30 21:56] LABS: Glucose,Whole Blood 178 mg/dL (75-99)
[2020-10-31] MEDS ORDERED: MVI, ADULT NO.4 WITH VIT K 10 ML, TRACE (CONC-1ML/DOSE) 1 ML, POTASSIUM ACETATE 20 MEQ ... IV SCH ×4 (04:30)
[2020-10-31] MEDS: DEXTROSE 5% IN WATER 1,000 ML IV SCH (04:58)
[2020-10-31 05:03] LABS: Albumin 2.6 g/dL (3.5-5.0); C Reactive Protein 27.8 mg/L (<10.0); Calcium 8.2 mg/dL (8.4-10.2); Magnesium 2.4 mg/dL (1.6-2.3); Potassium 4.3 mmol/L (3.5-5.1); Total Bilirubin 3.6 mg/dL (0.2-1.3); Total Protein 5.3 g/dL (6.3-8.2)
[2020-10-31 05:22] LABS: Anisocytosis Slight; Basophils % (A) 0 %; Eosinophils # (A) 0.2 k/uL (0-0.7); Eosinophils % (A) 1 %; HCT 27.7 % (39.0-53.0); HGB 9.3 gm/dL (13.0-17.5); Lymphocytes # (A) 0.2 k/uL (1.0-4.8); Lymphocytes % (A) 1 %; MCH 32.7 pg (25.0-35.0); MCHC 33.5 g/dL (31.0-37.0); MCV 97.8 fL (80.0-100.0); Macrocytosis Slight; Mean Platelet Volume 9.5; Monocytes # (A) 0.3 k/uL (0-1.0); Monocytes % (A) 2 %; Neutrophils # (A) 14.9 k/uL (1.3-7.7); Neutrophils % (A) 95 %; RBC 2.83 m/uL (4.30-5.90); RDW 17.1 % (11.5-15.5); WBC 15.8 k/uL (3.8-10.6)
[2020-10-31 05:23] LABS: Platelet Count 85 k/uL (150-450)
[2020-10-31 06:46] LABS: Glucose,Whole Blood 237 mg/dL (75-99)
[2020-10-31] MEDS: INSULIN ASPART (NovoLOG) 100 UNIT/ML VIAL SQ SCH ×8 (06:53→21:01)
[2020-10-31] MEDS: INSULIN DETEMIR (LEVEMIR) 100 UNIT/ML SYR SQ SCH (06:53)
[2020-10-31] MEDS: PANTOPRAZOLE 40 MG/10 ML VIAL IVP SCH (08:03)
[2020-10-31] MEDS: methylPREDNISolone SOD SUCCI 40 MG/ML 1 ML VIAL IV SCH ×2 (08:03→20:22)
[2020-10-31] MEDS: ASPIRIN 81 MG PO SCH (08:04)
[2020-10-31] MEDS: NON FORMULARY DRUG (Atomoxetine Hcl [Strattera] 40 MG Capsule) PO SCH (08:04)
[2020-10-31] MEDS: CHOLECALCIFEROL 25 MCG (1000 IU) TABLET PO SCH (08:05)
[2020-10-31] MEDS: VENLAFAXINE HCL 75 MG TAB PO SCH (08:05)
[2020-10-31] MEDS: METOPROLOL SUCCINATE (ER) 25 MG TAB.ER.24H PO SCH (08:05)
[2020-10-31] MEDS: NON FORMULARY DRUG (Atomoxetine Hcl [Strattera] 60 MG Capsule) PO SCH (08:05)
[2020-10-31] MEDS: MULTIVITAMINS, THERA 1 EACH TAB PO SCH (08:05)
[2020-10-31] MEDS: NEBIVOLOL 5 MG TAB PO SCH (08:05)
[2020-10-31] MEDS: RIVAROXABAN 20 MG TAB PO SCH (08:06)
[2020-10-31] MEDS: levETIRAcetam IV 500 MG in SODIUM CHLORIDE 0.9% 100 ML IVPB SCH ×2 (08:45→20:22)
[2020-10-31] MEDS: SYMBICORT 160-4.5 MCG INHALER INHALATION SCH ×2 (08:45→20:18)
[2020-10-31] MEDS: ALBUTEROL HFA INHALER INHALATION PRN ×4 (08:45→20:18)
--- NOTE | 2020-10-31 10:05 | P.PN ---
Subjective Patient is seen in follow-up for acute kidney injury. Renal function improved. Nonoliguric. Maintained on TPN. Currently on nonrebreather and airvo. Sodium level normal. Vital signs stable. No gross edema noted. Exam discussed in detail with the nurse. Objective - Vital Signs Vital signs: Vital Signs Temp 99 F 10/31/20 08:00 Pulse 106 H 10/31/20 09:00 Resp 33 H 10/31/20 09:00 BP 131/84 10/31/20 09:00 Pulse Ox 93 L 10/31/20 09:00 Intake & Output 10/30/20 10/31/20 10/31/20 18:59 06:59 18:59 Intake Total 2270 1200 400 Output Total 880 975 300 Balance 1390 225 100 Weight 109.8 kg 110.7 kg Intake: IV 1060 1120 160 Dextrose 5% in Water 1, 960 240 80 000 ml @ 20 mls/hr IV . Q24H [facility] Rx#:[id number] Mvi, Adult No.4 with Vit 100 K 10 ml Trace (Conc-1Ml/ Dose) 1 ml Potassium Acetate 10 meq In Amino Acid 5%-D15w 1,000 ml @ 50 mls/hr IV .[id number] [facility] Rx#:[id number] Mvi, Adult No.4 with Vit 880 80 K 10 ml Trace (Conc-1Ml/ Dose) 1 ml Potassium Acetate 10 meq In Amino Acid 5%-D15w 1,000 ml @ 80 mls/hr IV .BY DURATION [facility] Rx#:[id number] Intake, IV Titration 990 80 240 Amount Mvi, Adult No.4 with Vit 240 80 K 10 ml Trace (Conc-1Ml/ Dose) 1 ml Potassium Acetate 10 meq In Amino Acid 5%-D15w 1,000 ml @ 80 mls/hr IV .BY DURATION [facility] Rx#:[id number] Mvi, Adult No.4 with Vit 350 K 10 ml Trace (Conc-1Ml/ Dose) 1 ml Potassium Acetate 20 meq In Amino Acid 5%-D15w 1,000 ml @ 50 mls/hr IV .[id number] [facility] Rx#:[id number] Potassium Acetate 10 meq 240 In Amino Acid 5%-D15w 1, 000 ml @ 80 mls/hr IV .BY DURATION [facility] Rx#: [id number] Potassium Chloride 20 meq 200 In Water For Injection 1 100ml.bag @ 50 mls/hr IVPB Q2H [facility] Rx#: [id number] levETIRAcetam IV 500 mg 200 In Sodium Chloride 0.9% 100 ml @ 400 mls/hr IVPB Q12HR [facility] Rx#:[id number] Oral 220 Output: Urine 880 975 300 Other: Voiding Method Indwelling Catheter Indwelling Catheter Indwelling Catheter ABP, PAP, CO, CI - Last Documented Arterial Blood Pressure 69/48 - Labs CBC & Chem 7: 10/31/20 03:57 10/31/20 03:56 Labs: Abnormal Lab Results - Last 24 Hours (Table) 10/30/20 10/30/20 10/30/20 Range/Units 09:00 11:35 11:49 WBC 12.9 H (3.8-10.6) k/uL RBC (4.30-5.90) m/uL Hgb (13.0-17.5) gm/dL Hct (39.0-53.0) % RDW (11.5-15.5) % Plt Count (150-450) k/uL Neutrophils # (1.3-7.7) k/uL Neutrophils # (Manual) 12.51 H (1.3-7.7) k/uL Lymphocytes # (1.0-4.8) k/uL Lymphocytes # (Manual) 0.39 L (1.0-4.8) k/uL Nucleated RBCs 2 H (0-0) /100 WBC Chloride (98-107) mmol/L Carbon Dioxide (22-30) mmol/L BUN (9-20) mg/dL Glucose (74-99) mg/dL POC Glucose (mg/dL) 161 H 149 H (75-99) mg/dL Calcium (8.4-10.2) mg/dL Magnesium (1.6-2.3) mg/dL Total Bilirubin (0.2-1.3) mg/dL AST (17-59) U/L ALT (4-49) U/L Alkaline Phosphatase (38-126) U/L Lactate Dehydrogenase (313-618) U/L Creatine Kinase (55-170) U/L C-Reactive Protein (<10.0) mg/L Total Protein (6.3-8.2) g/dL Albumin (3.5-5.0) g/dL 10/30/20 10/30/20 10/31/20 Range/Units 18:03 21:54 03:56 WBC (3.8-10.6) k/uL RBC (4.30-5.90) m/uL Hgb (13.0-17.5) gm/dL Hct (39.0-53.0) % RDW (11.5-15.5) % Plt Count (150-450) k/uL Neutrophils # (1.3-7.7) k/uL Neutrophils # (Manual) (1.3-7.7) k/uL Lymphocytes # (1.0-4.8) k/uL Lymphocytes # (Manual) (1.0-4.8) k/uL Nucleated RBCs (0-0) /100 WBC Chloride 114 H (98-107) mmol/L Carbon Dioxide 21 L (22-30) mmol/L BUN 56 H (9-20) mg/dL Glucose 179 H (74-99) mg/dL POC Glucose (mg/dL) 209 H 178 H (75-99) mg/dL Calcium 8.2 L (8.4-10.2) mg/dL Magnesium 2.4 H (1.6-2.3) mg/dL Total Bilirubin 3.6 H (0.2-1.3) mg/dL AST 102 H (17-59) U/L ALT 250 H (4-49) U/L Alkaline Phosphatase 141 H (38-126) U/L Lactate Dehydrogenase 2947 H (313-618) U/L Creatine Kinase 335 H (55-170) U/L C-Reactive Protein 27.8 H (<10.0) mg/L Total Protein 5.3 L (6.3-8.2) g/dL Albumin 2.6 L (3.5-5.0) g/dL 10/31/20 10/31/20 Range/Units 03:57 06:44 WBC 15.8 H (3.8-10.6) k/uL RBC 2.83 L (4.30-5.90) m/uL Hgb 9.3 L (13.0-17.5) gm/dL Hct 27.7 L (39.0-53.0) % RDW 17.1 H (11.5-15.5) % Plt Count 85 L (150-450) k/uL Neutrophils # 14.9 H (1.3-7.7) k/uL Neutrophils # (Manual) (1.3-7.7) k/uL Lymphocytes # 0.2 L (1.0-4.8) k/uL Lymphocytes # (Manual) (1.0-4.8) k/uL Nucleated RBCs (0-0) /100 WBC Chloride (98-107) mmol/L Carbon Dioxide (22-30) mmol/L BUN (9-20) mg/dL Glucose (74-99) mg/dL POC Glucose (mg/dL) 237 H (75-99) mg/dL Calcium (8.4-10.2) mg/dL Magnesium (1.6-2.3) mg/dL Total Bilirubin (0.2-1.3) mg/dL AST (17-59) U/L ALT (4-49) U/L Alkaline Phosphatase (38-126) U/L Lactate Dehydrogenase (313-618) U/L Creatine Kinase (55-170) U/L C-Reactive Protein (<10.0) mg/L Total Protein (6.3-8.2) g/dL Albumin (3.5-5.0) g/dL Assessment and Plan Plan: Assessment: 1. Acute kidney injury secondary to ATN secondary to cold in 19 infection. Improved. Creatinine stable at 1.03 today. 2. Acute hypoxia respiratory failure secondary to cord pneumonia. 3. Hypernatremia from lack of oral water intake. Improved with D5W. 4. Diabetes mellitus. Plan: Maintain TPN. D5W running at 20 mL an hour. Wean FiO2. Avoid nephrotoxins. Continue to monitor renal function and urine output
--- NOTE | 2020-10-31 11:10 | XR ---
EXAMINATION TYPE: XR chest 1V DATE OF EXAM: 10/31/2020 COMPARISON: 10/30/2020 INDICATION: Covid TECHNIQUE: Single frontal view of the chest is obtained. FINDINGS: The heart size is normal. The pulmonary vasculature is normal. Minimal scattered infiltrates are present. A pneumatoceles on the right. Right-sided PICC line is pre sent with the tip in the superior vena cava region IMPRESSION: 1. Mild patchy infiltrates similar to prior study. Findings can be compatible with atypical pneumonia .
--- NOTE | 2020-10-31 11:31 | P.PN ---
Subjective Progress Note Date: 10/31/20 HISTORY OF PRESENT ILLNESS This is a 70 years old male patient of Dr. Polo with past medical history of pulmonary embolism diagnosed in [place] 2 years ago, history of lower extremity DVT, coronary artery disease no stent, history of heart failure unknown if systolic or diastolic, COPD, hyperlipidemia, hypertension, osteoarthritis, prostate cancer, skin disorder,'s obstructive sleep apnea on CPAP, subclavian steal syndrome with stent placement, history of recent penile implant on 07/27/2016. Patient has chronic shortness of breath that has been going on for the past 2 years since the diagnosis of pulmonary embolism with O2 requirements at 2 L nasal cannula Patient is currently on maintenance dose of xarelto at 10 mg daily. He presents emergency room secondary to worsening dyspnea, x 7 days without any medical intervention prior to this, He was seen in the Emergency room for the shortness of breath, worsening dyspnea and exertion, and was found to be SARS cov 2 positive. Chest x-ray, shows bilateral pulmonary interstitial infiltrates compared to old exam, with a similar atelectasis. Poor inspiration, no hilar masses laboratory shows hemoglobin of 12.9, WBC count of 7, creatinine of 1.47, iron of 1.2, glucose 120 CRP 88, pro-calcitonin slightly elevated 0.22. Patient denies any chronic prednisone exposure, Consult were made with pulmonary, Dr. Ramos, pulse oximetry would be 9 PT 1697 at 2-3 L nasal cannula, blood pressure of 129/66. 10/11: Patient was seen for follow-up today, he is a little bit tachypnea, very small amount of labored breathing only on exertion, no conversational dyspnea, O2 at 2 L, sats 95%, no clearance from pulmonary medicine are stable were rounding today, no cough, no pleurisy, no chest pain no palpitations, creatinine at 1.5 today, electrolytes are normal, wbc of 4.7, LDH of 784, ferritin 533 patient is on IV dexamethasone maintained on Xarelto, no new treatment from pulmonary critical care today, currently stable 10/12: A-Team is called during the night due to hypoxia and patient was started on AirVo. Respiratory rate is been in the 40s, heart rate 74, afebrile, pulse ox 96%. Chest x-ray from yesterday revealed patchy. Hilar and basilar infiltrates persist and have progressed slightly in the interval. Repeat blood work reveals WBC 6.8, hemoglobin 12.4, platelet count 135. LDH 1228. C- reactive protein 85.1. The patient has developed increasing difficulty with breathing. He denies having any chest pain. He states he could not sleep through the night. 10/13: Patient states that his breathing status is about the same as yesterday or little bit more difficult. He denies any coughing up blood. He denies any abdominal pain, nausea or vomiting, no diarrhea. Patient remains on Arava with pulse ox of 88-90%. Afebrile, heart rate 69, respiratory rate 40, blood pressure 137/76. Patient is status post 2 doses of Tocilizumab. patient is followed closely by pulmonary medicine. 10/14: Patient is currently on AirVo and nonrebreather but states that he is feeling better today and that his breathing is better. He has been afebrile, heart rate 72, respiratory rate 36, blood pressure 130/70, pulse ox 90%. He denies having abdominal pain, nausea vomiting or diarrhea. He remains on Solu- Medrol 60 mg IV every 6 hours. 10/15: Patient was transferred to the ICU per Dr. Wright. He is currently on AirVo only at time of evaluation and is eating his breakfast. Patient has been maintained on Arava plus nonrebreather. His breathing status appears to be improved from yesterday. His pulse ox is 88%. Afebrile, heart rate 76, respiratory rate 25, blood pressure 131/81. Repeat chest x-ray reveals stable chest. Repeat blood work reveals normal CBC. D-dimer 1.85. C-reactive protein 29. LDH is pending. Ferritin level 1340.6. Patient is scheduled for PICC line insertion today. Lasix 40 mg IV push ordered today by pulmonary medicine. Patient is continued on Solu-Medrol 60 mg every 6 hours. Patient not receiving any antibiotics at this time. 10/16: Patient remains in the intensive care unit. He was off nonrebreather and only on AirVo yesterday most of the day. Now he is on both AirVo and nonrebreather and taking the nonrebreather on and off as he needs it. He is eating 50% of his meals. He has been afebrile, heart rate 69, respiratory rate 34, blood pressure 142/80, pulse ox 88% on both AirVo and nonrebreather. Repeat blood work reveals W BC 13.5, hemoglobin 13.6, platelet count 247. Electrolytes normal. BUN 52 and creatinine 1.2. Blood sugars running between 120 975. Total bilirubin 1.0, AST 111, ALT 137, alkaline phosphatase 80. C-reactive p rotein 16.3, CK 65. Repeat chest x-ray reveals bilateral lower lobe infiltrate and small effusion with coarsened interstitium correlate for venous congestion versus interstitial pneumonia. Patient surprisingly feels his breathing is stable. He has no new complaints. 10/17: Patient remains in intensive care unit. He has been off the nonrebreather for the past hour and a half with only AirVo with pulse ox in the high 80s. He has been afebrile, heart rate in the 70s, blood pressure 142/86, respiratory rate in 30s. Patient verbalizes that his breathing status is improving. Repeat blood work reveals WBC 15.8, hemoglobin 13.7, platelet count 239. Electrolytes normal. BUN 54 and creatinine 1.09. Blood sugars running between 120 765. Total bilirubin 1.5, AST 195, ALT 304, alkaline phosphatase 92, LDH 2785. CK 51, C-reactive protein 11.3. Repeat chest x-ray reveals mild interval pro gression in the lung infiltrates within the right lung. Left lung is stable. No change in small bilateral pleural effusions. 10/18: Patient remains in intensive care unit. He is seen today on AirVo and nonrebreather and pulse ox has been marginal in the low to mid 80s. Heart rate is in the 70s, respiratory rate in the 30s, blood pressure 136/87. He has been afebrile. Repeat blood work reveals WBC 18.4. Electrolytes normal, BUN 59 and creatinine 1.03. Blood sugars running between 126 and 166. Ferritin level 1817. D-dimer 11.45. Total bilirubin 1.7, AST 128, ALT 309, alkaline phosphat ase 121. LDH 3174. CK 98, C-reactive protein 5.9. Repeat chest x-ray reveals left perihilar and basilar infiltrates persist 10/19: Patient's breathing status remains about the same. He has been afebrile, heart rate 70s, respiratory rate 29, blood pressure 143/87. Pulse ox is running mid to high 80s with nonrebreather and high flow nasal cannula. WBC 19.1, hemoglobin 14.1, platelet count 247. D-dimer 11.64. Electrolytes normal. BUN 55 and creatinine 1.05. Blood sugars running between 124 and 197. Ferritin 1583. Total bilirubin 1.4, AST 99, ALT 266, alk phos was 123. LDH 2962. C-re active protein 5.4. Repeat chest x-ray shows no pneumothorax. Interstitial and patchy bilateral infiltrates. 10/20: Patient remains in the intensive care unit and he is currently on nonrebreather and high flow nasal cannula. Pulse ox is running 86-91%. He has been afebrile, heart rate in the 70s, respiratory rate 29, blood pressure 145/81. WBC 21.3. Sodium 136, BUN 57 and creatinine 1.07. Blood sugars running between 100 3459. Ferritin level 1616. Total bilirubin 1.8, AST 87, ALT 262, alkaline phosphatase 131. C-reactive protein normal at less than 5. Repeat chest x-ray reveals relatively stable with interstitial infiltrates and possible trace effusions. 10/21:patient remains in the intensive care unit. He is on Arava oh and nonrebreather with pulse ox in the mid 80s. Patient has been afebrile.Heart rate in the 70s and 60s, respiratory rate in the mid to high 20s, pulse ox a nywhere between 81-89%, blood pressure 119/81. WBC 27.3, hemoglobin 15, platelet count 202. Electrolytes normal, BUN 61 and creatinine 1.11. Blood sugars running between 141 and 158. Ferritin level 1639, total bilirubin 2.0, AST 104, ALT 296, alkaline phosphatase 136. LDH 2774. C-reactive protein less than 5. Patient is continued on Zosyn, IV Solu-Medrol heart rate in the 60s and 70s, respiratory rate in the 20s n and IV Lasix. 10/22: Patient remains in the intensive care unit currently on BiPAP. Patient had some increased anxiety this morning was given Xanax and was lethargic following with desats and subsequently placed on BiPAP. He's been running high 90s for pulse ox. He's been afebrile, heart rate in the 70s, respiratory rate in the 20s to 30s, blood pressure 125/91. Repeat blood work reveals W BC 22.7, hemoglobin 14.3, platelet count 173. Electrolytes are normal except for CO2 of 31, BUN 64 and creatinine 1.17. Ferritin 1475.9. Total bilirubin 2.3, AST 88, ALT 281, alkaline phosphatase 133. LDH 2416. Blood sugars running between 144 and 158. Repeat chest x-ray reveals mild diffuse increased lung opacities. Patient is continued on Zosyn, Solu-Medrol. Patient may require intubation. 10/23: The patient remains on BiPAP with pulse ox between 86 and 92 with FiO2 of 60%, respiratory rate anywhere between 28 and 40, heart rate in the 80s, afebrile. Patient is getting tired and fatigued. He actually pulled his PICC line out and arterial line and femoral triple-lumen catheter was placed. Repeat chest x-ray reveals similar diffuse bilateral interstitial opacities. Possible trace right effusion. Patient's mental status is stable today. He did have some mild confusion and lethargy yesterday. WBC 24.3. BUN 73 and creatinine 1.34. Blood sugars running between 140 154. Total bilirubin 3.1, AST 117, ALT 329, alkaline phosphatase 137. 10/26: Patient remains in the intensive care unit on BiPAP. Pulse ox is 89-93% on BiPAP of 55% FiO2. Respiratory rate in the 30s, afebrile, heart rate in the 80s and 90s, blood pressure 101/69. Repeat blood work reveals W BC 23.0, hemoglobin 11.9, platelet count 138. INR is 1.4. D-dimer 3.7 following her. Sodium 150, potassium 4.2, chloride 118, CO2 26, BUN 95 and creatinine 1.94. Blood sugars running between 124 and 214. Total bilirubin 3.8, AST 132, ALT 407, alkaline phosphatase 83. LDH 2059. CK 272. Patient's IV fluids were switched to D5 yesterday at 150 mL per hour and IV Lasix was discontinued with improvement of his sodium. Patient pulled out his central line. Prognosis is guarded. 10/27: Patient is afebrile, heart rate 96, respiratory rate 27, blood pressure 120/72, pulse ox 90-95 percent on AirVo with FiO2 of 70%. Patient was decreased to 55% and he seems to be desats into the low 80s. Repeat blood work reveals WBC 14.4, hemoglobin 10.3, platelet count 104. Sodium 145, potassium 4.5, chloride 115, CO2 22, BUN 112 and creatinine 2.12. Blood sugars running between 186 and 290. Phosphorus 5.2, magnesium 3.2, total bilirubin 3.4, AST 97, ALT 310, alkaline phosphatase 75. C-reactive protein 6.4. Patient has been started on TPN. 10/28: She remains on AirVo with pulse ox in the low 90s, he has soft restraints in place, mild confusion. Patient has been afebrile, heart rate 96, blood pressure 122/66. Respiratory rate 20-30. Repeat blood work reveals WBC 15.1, hemoglobin 9.9, platelet count 97. D-dimer 2.83. BUN 100 and creatinine 1.88. Magnesium 3.0. Ferritin 1385, AST 116, ALT 279, alkaline phosphatase 83, CK 479. Repeat chest x-ray reveals scattered interstitial infiltrates persist. Patient has been seen by nephrology with recommendations to decrease IV fluids, DC phosphorus and TPN. Renal ultrasound revealed nonvisualization of the left kidney. Right kidney demonstrates no evidence of hydronephrosis or nephrolithiasis. Cortical thinning suggest chronic medical renal disease. 10/29: Patient remains in the intensive care unit, mild confusion, no restraints in place. Pulse ox is running about 90 on nonrebreather mask and high flow nasal cannula. Patient has been afebrile, heart rate 103, respiratory rate 32, blood pressure 136/60. Monitor is sinus rhythm. Repeat blood work reveals sodium 145, potassium 4.0, chloride 115, CO2 26, BUN 797 and creatinine 1.39. Blood sugars running 189-225. Insulin will be increased to 15 units Levemir daily and add NovoLog 3 units with meals and before bed and continue NovoLog scale. The patient is refusing all meals only able to eat a few bites. He is on TPN and dextrose IV fluids. 10/30: Patient remains on both nonrebreather and AirVO with pulse ox in the low 90s up to 95. Respiratory rate 32, heart rate 92, afebrile, blood pressure 133/75. Repeat blood work reveals WBC 12.9, hemoglobin 9.2, platelet count 92. D-dimer 2.73. Creatinine 1.01. Blood sugar 162-188. Phosphorus 2.8, magnesium 2.5, potassium 3.5. LDH 2626. C-reactive protein 11.9. Patient has held all 4 agitation area he is continued on IV Solu-Medrol 60 mg every 6 hours, anticoagulation is with Xarelto. Patient is on TPN. 10/31: Patient remains on nonrebreather and airvo pulse ox is low 90s but respiratory rate is in the 30s and 40s, heart rate 109, blood pressure 157/88. Patient is unable to take his medications orally. Dr. Rivero is planning to contact the patient's regarding CODE STATUS. Repeat blood work reveals WBC 15.8, hemoglobin 9.3, platelet count 85. CO2 21, BUN 56 and creatinine 1.03. Blood sugars running between 178 and 237. Insulin increased to Levemir 20 units daily. Total bilirubin 3.6, AST 102, ALT 250, alkaline phosphatase 141. Magnesium 2.4. Potassium 4.3. LDH 2947, CK 335, C-reactive protein 27.8. REVIEW OF SYSTEMS Unable to obtain due to medical status. PHYSICAL EXAMINATION Gen: This is a 70-year-old male. He is resting in ICU bed and appears to be fatigued. Patient is on AirVo and NRB. HEENT: Head is atraumatic, normocephalic. Pupils equal, round. Sclerae is anicteric. NECK: Supple. No JVD. No lymphadenopathy. No thyromegaly. LUNGS: Few scattered rhonchi and scattered expiratory wheezing. Mild to mod erate intercostal retractions. HEART: Regular rate and rhythm. No murmur. ABDOMEN: Soft. Bowel sounds are present. No masses. No tenderness. EXTREMITIES: No pedal edema. No calf tenderness. Dorsalis pedis palpable bilaterally. NEUROLOGICAL: Patient is awake, alert and oriented to person and place. Generalized weakness noted. Generalized fatigue noted. ASSESSMENT AND PLAN 1. Acute SARS COV2, infection with acute hypoxic respiratory failure. Continue current management per pulmonary medicine. Continue Solu-Medrol 40 mg every 12 hours, albuterol inhaler as needed, Symbicort inhaler twice daily. Continue vitamin D. Patient is status post 2 doses of Tocilizumab. Patient may require intubation. Monitor inflammatory markers. She may require intubation. Dr. Rivero to contact patient's regarding CODE STATUS. 2. Thrombocytopenia secondary to COVID 19 infection. Continue to monitor. 3. Acute kidney injury secondary to dehydration, poor oral intake. Continue to monitor renal function. Consult with nephrology appreciated. Ultrasound as above. 4. Chronic anticoagulation, secondary to history of DVT. Continue Xarelto. 5. History of DVT of the right leg in December 2013, resolved. 6. COPD. Continue albuterol- Atrovent as needed . Continue Symbicort twice daily 7. Hyperlipidemia. Continue Crestor daily. 8. Subclavian steal syndrome status post stent in the right carotid. 9. Benign prostatic hypertrophy. The catheter. Continue Flomax daily 10. History of coronary artery disease with previous myocardial infarction. 11. Obstructive Sleep apnea. Patient has his own CPAP machine. 12. Gastroesophageal reflux disease and gastric intestinal prophylaxis. Continue tonic's. 13. Hypertension. Continue Toprol-XL 75 mg daily. 14. Depression. Continue Cymbalta 150 mg twice daily. 15. History of ADHD. Strattera on hold. 16. Chronic kidney disease stage III, stable 17. Chronic systolic heart failure and ischemic cardiomyopathy with prior ejection fraction 40%. Continue aspirin 81 mg metoprolol 18. Hyperglycemia secondary to steroids and TPN. Patient placed on Levemir crease to 15 units daily, and 3 units of NovoLog before meals and at bedtime and continue with NovoLog scale. 10. Metabolic encephalopathy secondary to Covid. Patient has been started on held all as needed for agitation. CODE STATUS full code Prognosis poor. DISCHARGE PLAN TBD. Impression and plan of care have been directed as dictated by the signing physician. Nena Frausto nurse practitioner acting as scribe for signing physician. Objective - Vital Signs Vital signs: Vital Signs Temp 99 F 10/31/20 08:00 Pulse 106 H 10/31/20 10:00 Resp 36 H 10/31/20 10:00 BP 154/75 10/31/20 10:00 Pulse Ox 92 L 10/31/20 10:00 Intake & Output 10/30/20 10/31/20 10/31/20 18:59 06:59 18:59 Intake Total 2270 1200 400 Output Total 880 975 300 Balance 1390 225 100 Weight 109.8 kg 110.7 kg Intake: IV 1060 1120 160 Dextrose 5% in Water 1, 960 240 80 000 ml @ 20 mls/hr IV . Q24H [facility] Rx#:[id number] Mvi, Adult No.4 with Vit 100 K 10 ml Trace (Conc-1Ml/ Dose) 1 ml Potassium Acetate 10 meq In Amino Acid 5%-D15w 1,000 ml @ 50 mls/hr IV .[id number] [facility] Rx#:[id number] Mvi, Adult No.4 with Vit 880 80 K 10 ml Trace (Conc-1Ml/ Dose) 1 ml Potassium Acetate 10 meq In Amino Acid 5%-D15w 1,000 ml @ 80 mls/hr IV .BY DURATION [facility] Rx#:[id number] Intake, IV Titration 990 80 240 Amount Mvi, Adult No.4 with Vit 240 80 K 10 ml Trace (Conc-1Ml/ Dose) 1 ml Potassium Acetate 10 meq In Amino Acid 5%-D15w 1,000 ml @ 80 mls/hr IV .BY DURATION [facility] Rx#:[id number] Mvi, Adult No.4 with Vit 350 K 10 ml Trace (Conc-1Ml/ Dose) 1 ml Potassium Acetate 20 meq In Amino Acid 5%-D15w 1,000 ml @ 50 mls/hr IV .[id number] [facility] Rx#:[id number] Potassium Acetate 10 meq 240 In Amino Acid 5%-D15w 1, 000 ml @ 80 mls/hr IV .BY DURATION [facility] Rx#: [id number] Potassium Chloride 20 meq 200 In Water For Injection 1 100ml.bag @ 50 mls/hr IVPB Q2H [facility] Rx#: [id number] levETIRAcetam IV 500 mg 200 In Sodium Chloride 0.9% 100 ml @ 400 mls/hr IVPB Q12HR [facility] Rx#:[id number] Oral 220 Output: Urine 880 975 300 Other: Voiding Method Indwelling Catheter Indwelling Catheter Indwelling Catheter ABP, PAP, CO, CI - Last Documented Arterial Blood Pressure 69/48 - Labs CBC & Chem 7: 10/31/20 03:57 10/31/20 03:56 Labs: Abnormal Lab Results - Last 24 Hours (Table) 10/30/20 10/30/20 10/30/20 Range/Units 09:00 11:35 11:49 WBC 12.9 H (3.8-10.6) k/uL RBC (4.30-5.90) m/uL Hgb (13.0-17.5) gm/dL Hct (39.0-53.0) % RDW (11.5-15.5) % Plt Count (150-450) k/uL Neutrophils # (1.3-7.7) k/uL Neutrophils # (Manual) 12.51 H (1.3-7.7) k/uL Lymphocytes # (1.0-4.8) k/uL Lymphocytes # (Manual) 0.39 L (1.0-4.8) k/uL Nucleated RBCs 2 H (0-0) /100 WBC Chloride (98-107) mmol/L Carbon Dioxide (22-30) mmol/L BUN (9-20) mg/dL Glucose (74-99) mg/dL POC Glucose (mg/dL) 161 H 149 H (75-99) mg/dL Calcium (8.4-10.2) mg/dL Magnesium (1.6-2.3) mg/dL Total Bilirubin (0.2-1.3) mg/dL AST (17-59) U/L ALT (4-49) U/L Alkaline Phosphatase (38-126) U/L Lactate Dehydrogenase (313-618) U/L Creatine Kinase (55-170) U/L C-Reactive Protein (<10.0) mg/L Total Protein (6.3-8.2) g/dL Albumin (3.5-5.0) g/dL 10/30/20 10/30/20 10/31/20 Range/Units 18:03 21:54 03:56 WBC (3.8-10.6) k/uL RBC (4.30-5.90) m/uL Hgb (13.0-17.5) gm/dL Hct (39.0-53.0) % RDW (11.5-15.5) % Plt Count (150-450) k/uL Neutrophils # (1.3-7.7) k/uL Neutrophils # (Manual) (1.3-7.7) k/uL Lymphocytes # (1.0-4.8) k/uL Lymphocytes # (Manual) (1.0-4.8) k/uL Nucleated RBCs (0-0) /100 WBC Chloride 114 H (98-107) mmol/L Carbon Dioxide 21 L (22-30) mmol/L BUN 56 H (9-20) mg/dL Glucose 179 H (74-99) mg/dL POC Glucose (mg/dL) 209 H 178 H (75-99) mg/dL Calcium 8.2 L (8.4-10.2) mg/dL Magnesium 2.4 H (1.6-2.3) mg/dL Total Bilirubin 3.6 H (0.2-1.3) mg/dL AST 102 H (17-59) U/L ALT 250 H (4-49) U/L Alkaline Phosphatase 141 H (38-126) U/L Lactate Dehydrogenase 2947 H (313-618) U/L Creatine Kinase 335 H (55-170) U/L C-Reactive Protein 27.8 H (<10.0) mg/L Total Protein 5.3 L (6.3-8.2) g/dL Albumin 2.6 L (3.5-5.0) g/dL 10/31/20 10/31/20 Range/Units 03:57 06:44 WBC 15.8 H (3.8-10.6) k/uL RBC 2.83 L (4.30-5.90) m/uL Hgb 9.3 L (13.0-17.5) gm/dL Hct 27.7 L (39.0-53.0) % RDW 17.1 H (11.5-15.5) % Plt Count 85 L (150-450) k/uL Neutrophils # 14.9 H (1.3-7.7) k/uL Neutrophils # (Manual) (1.3-7.7) k/uL Lymphocytes # 0.2 L (1.0-4.8) k/uL Lymphocytes # (Manual) (1.0-4.8) k/uL Nucleated RBCs (0-0) /100 WBC Chloride (98-107) mmol/L Carbon Dioxide (22-30) mmol/L BUN (9-20) mg/dL Glucose (74-99) mg/dL POC Glucose (mg/dL) 237 H (75-99) mg/dL Calcium (8.4-10.2) mg/dL Magnesium (1.6-2.3) mg/dL Total Bilirubin (0.2-1.3) mg/dL AST (17-59) U/L ALT (4-49) U/L Alkaline Phosphatase (38-126) U/L Lactate Dehydrogenase (313-618) U/L Creatine Kinase (55-170) U/L C-Reactive Protein (<10.0) mg/L Total Protein (6.3-8.2) g/dL Albumin (3.5-5.0) g/dL
[2020-10-31 12:00] LABS: Glucose,Whole Blood 240 mg/dL (75-99)
[2020-10-31 12:02] LABS: Ferritin 910.9 ng/mL (22.0-322.0)
--- NOTE | 2020-10-31 12:36 | P.PN ---
Subjective Progress Note Date: 10/31/20 Principal diagnosis: CoVID 19 pneumonia This is a pleasant 70-year-old gentleman follows with Dr. Polo as his primary care provider. He has a history of coronary artery disease, peripheral vascular disease, congestive heart failure, hyperlipidemia, hypertension, PE/DVT, obstructive sleep apnea utilizing CPAP, chronic obstructive pulmonary disease on home oxygen at 2 L/m per nasal cannula. The patient is a 1 week history of increasing shortness of breath, nausea, vomiting, diarrhea, weakness and was seen at [facility] and tested positive for CoVID and was instructed to go to the emergency room. Chest x-ray reveals mild bilateral pulmonary interstitial infiltrates. He is seen today in consultation on the selective care unit. He is currently sitting up in bed. Awake and alert in no acute distress. He is maintaining good O2 saturations in the mid 90s on 2 L/m per nasal cannula. He is afebrile. Hemodynamically stable. White count 4.7. Hemoglobin 12.9. Platelet count 116. Lymphocytes 0.7. D-dimer 0.18. Sodium 139. Potassium 4.3. Creatinine 1.51. LDH 784. C-reactive protein 88.5. Pro Calcitonin 0.22. He's been initiated on Symbicort, albuterol. Endocrine related with Xarelto. On dexamethasone, multivitamin. The patient is seen today 10/11/2020 in follow-up on the selective care unit. He is currently sitting up in bed. Awake and alert in no acute distress. He is requiring 3 L nasal cannula to maintain O2 saturations 88% and higher. He is normally on 2 L at home. He denies any worsening shortness of breath. He continues with a loose nonproductive cough. He is maintained on dexamethasone, vitamin supplements. Anticoagulated with Xarelto. 10/12/2020 the patient is being seen in follow-up in the selective units. The patient has been diagnosed having Covid 19 related pneumonia. The patient is 70 years old and he is known to have coronary artery disease, peripheral vascular disease, congestive heart failure, hyperlipidemia, hypertension, PE/DVT, obstructive sleep apnea utilizing CPAP, chronic obstructive pulmonary disease on home oxygen at 2 L/m per nasal cannula. The patient is currently maintained on dexamethasone, vitamin supplements. Anticoagulated with Xarelto. The patient's pulmonary status overnight decompensated. The patient had the replacement high flow oxygen at 60 L with an FiO2 of 60%. Chest x-ray showed diffuse bilateral pulmonary infiltrates, mostly peripheral, consistent with Covid 19 pneumonia, probably there is some interval worsening. The patient has bilateral shoulder replacement. The blood gases from yesterday showed a pH of 7.45 with a pCO2 of 38 and pO2 of 63. His inflammatory markers from today are elevated. LDH level is up to 1228 and a CRP level is up to 85. Need 2020, the patient is still on high flow oxygen at 60 L with an FiO2 of 55%. Based on the significant drop in oxygenation, which The patient on steroids and the patient is currently on Decadron and we added Toci 400 mg and the patient received only 1 dose. He is going to receive his second dose of 400 mg today. Patient's oxygenation is stable. D-dimer is down at 0.33. His LDH level is at 1228 and the CRP is at 85. The chest x-ray from yesterday showed bilateral patchy pulmonary infiltrates. The patient has approximately 2 fibrillation and is maintained on Xarelto. The patient also is known to have coronary artery disease, peripheral vascular disease, congestive heart failure, hyperlipidemia, hypertension, PE/DVT, obstructive sleep apnea utilizing CPAP, chronic obstructive pulmonary disease on home oxygen at 2 L/m per nasal cannula. On 10/14/2020, the patient is gradually getting worse. He was desaturating despite being on high flow oxygen at 60 L and an FiO2 of 90% and he is also utilizing 100% nonrebreather facemask. Note that this patient has been treated aggressively. He received Decadron. He also received 2 doses of Tocilizumab. . The patient had a d-dimer of 1.06 and the rest of the inflammatory markers are still pending for now. Meanwhile, his labs are essentially within normal limits and his creatinine is down to 1.2. He remains on Decadron 6 mg IV every 24 hours. He is also on long-term antibiotic ventilation with Xarelto 20 mg by mouth daily. Note that the patient has previous history of DVT and pulmonary embolism. He has obstructive sleep apnea and he has COPD and is maintained on oxygen at 2 L per minute at home for chronic hypoxic respiratory failure. He has hypertension and hyperlipidemia congestion heart failure and peripheral vascular disease in addition to CABG as comorbid conditions. His last chest x- ray was from 09/14/2020 and a repeat chest x-ray will be ordered. His last chest x-ray showed diffuse breath and pulmonary infiltrates, mainly the peripheries consistent with Covid 19 related pneumonia. 10/15/2020, the patient is currently in the intensive care unit. Just like yesterday, he remains on high flow oxygen 6 L with an FiO2 of 90% and the patient is also utilizing 100% nonrebreather facemask. His current pulse ox is around 91%. He is comfortable. Is at the rate is in the low 30s. His chest x- ray from today showing stable bilateral pulmonary infiltrates without any major interval change compared to yesterday. His blood work from today shows no electrolyte abnormalities, creatinine stable at 1.2. His inflammatory markers are still pending. CRP is down to 29, LDH is pending for now. The d-dimer is at 1.85. In terms of therapy, and he is on IV Solu-Medrol 60 mg every 6 hours is also on multivitamins and he remains on long-term anticoagulation with Xarelto. He is lethargic. Oral intake is quite diminished at this point in time. No altered mentation. Is able to follow commands appropriately. He is weak. He is known to have COPD, previous bypass, hypertension and hyperlipidemia and peripheral vascular disease. He is also known to have CHF. He does have a remote history of DVT and pulmonary embolism. He remains in the ICU for now. He got transferred to the ICU yesterday because of ongoing difficulties with shortness of breath and hypoxemia. His echocardiogram from 2018 was essentially within normal limits and he had a normal ejection fraction. 10/16/2020, Rayo is on 60 L of oxygen along with an FiO2 of 90% and the patient is on 100% nonrebreather facemask. He is quite comfortable. He takes of his main for feeding purposes. During this time, he desaturates and is relatively asymptomatic while he desaturates. He goes down to the 80s and he recovers. He is not tachypneic. He is resting comfortably in bed. In terms of treatment, the patient remains on IV Solu Medrol 60 mg every 6 hours. He is on long-term anticoagulation with Xarelto. His chest x-ray from today is reviewed and is showing some limited improvement in the bilateral interstitial infiltrates seen earlier. In terms of his inflammatory markers, his LDH from yesterday and today has not been checked. His last LDH level was on 10/14/2020 was 1797. His CRP level has dropped down to 16.3. His d-dimer level is at 4.08. As mentioned, the patient is on anticoagulation and he is on Xarelto. He is also on Lasix and he is receiving Lasix 40 mg IV every 24 hours. Neck fluid balance over the past 24 hours has been -2.2 L and is responding nicely to diuretics and his weight is declined. No other significant issues. No altered mentation. No agitation. No confusion. No nausea. No vomiting. No diarrhea. No abdominal pain. No chest pain. He is known to have CAD, previous bypass, hypertension and hyperlipidemia and peripheral vascular disease. He also has history of DVT and pulmonary embolism remains on anticoagulation. 10/17/2020, the patient is on high flow oxygen at 60 L along with FiO2 of 90%. Chest x-ray showing infiltrates mainly on the left compared to the right. Lung volumes are essentially small. No major interval change compared to yesterday, the right lung is obviously better compared to the chest x-ray yesterday. In terms of his clinical status, the patient is feeling that he is less short of breath compared to yesterday. He has occasional cough. No chest pain. He is able to get rid of his 100% nonrebreather facemask and tolerate his diet. He is taking approximately 50% of his diet provided. He remains on IV Solu-Medrol. He remains on long-term articulation with Xarelto. LDH and CRP are being monitored. The levels were quite elevated and the LDH today's 2785 and the CRP is 11.3. The BUN is a 54 with a creatinine of 1.09. Electrolytes are normal, d-dimer is at 6.88, and the CBC showing a white cell count of 15.8 with a hemoglobin of 13.7. No confusion. No altered mentation. Fluid balance is in order of -2.4 L. He is getting Lasix 40 mg IV every 24 hours. No other significant events overnight A 2020 the patient is being seen for a follow-up. Currently he is on a combination of high flow oxygen 6 L with an FiO2 of 90% and the same time the patient is on a nonrebreather facemask 100%. Pulse ox is currently ranging between 80% up to 88% and it fluctuates. Overnight, he became slightly more restless and agitated. He pulled on his masks and he became briefly hypoxic and had to be placed again. As stated, his overall respiratory status quite borderline. He is a case of Covid 19 related pneumonia. On IV Solu-Medrol 60 mg every 6 hours. In terms of his inflammatory markers today, the patient's LDH level is up to 3174 and his CRP level is also at 5.9. D-dimer is at 11.45. He is on anticoagulation and is receiving Xarelto on a daily basis . His chest x- ray is showing limited by system place, change compared to yesterday. On examination, he has adequate air entry bilaterally. His fluid balance over the past 24 hours has been in the order of -2.4 L and the patient is diuresing adequately. His body weight is also on the decline. His blood work today shows a BUN of 54 with a creatinine of 1.09 and the sodium level is at 139. His white cell count 15.8 with hemoglobin 13.7 and a adequate platelet count of 239. No other significant events otherwise for now. Active issue remains is ongoing respiratory insufficiency and high oxygen requirements. The patient is seen today 10/19/2020 in follow-up in the intensive care unit. He is currently sitting up in bed. Awake and alert in no acute distress. He is still requiring airflow high flow oxygen at 15 L/m and 90% FiO2 along with a nonrebreather mask to maintain O2 saturations in the high 80s low 90s. He did receive Tocilizumab. He is currently on Solu-Medrol 60 mg every 6 hours, bronchodilators. Anticoagulated with Xarelto. Receiving IV diuretics. Remains in a negative balance. Chest x-ray continues to show bilateral patchy infiltrates. No evidence of pneumothorax. White count 19.1. Hemoglobin 14.1. D-dimer 11.6. Sodium 137. Potassium 4.4. Creatinine 1.0. LDH 2962. C- reactive protein 5.4. The patient is seen today 10/20/2020 in follow-up in the intensive care unit. He is currently sitting up in bed. Awake and alert in no acute distress. He is still very weak and fatigued. He has very little reserve. Any little movement decreases his oxygen saturations. He is currently on AirVo high flow oxygen at 60 L and 90% FiO2 along with a nonrebreather mask. He's been on IV Solu-Medrol 60 every 6, Xarelto, bronchodilators. Received tocilizumab. Chest x-ray continues to show bilateral interstitial infiltrates with trace effusions. He remains on IV diuretics.. Plan to add Zosyn. Pro-calcitonin pending. White count up to 21.3. Hemoglobin 14.3. Sodium 136. Potassium 4.5. Creatinine 1.07. C-reactive protein less than 5.0. The patient is seen today 10/21/2020 in follow-up in the intensive care unit. He is currently awake and alert in no acute distress. Resting fairly comfortably in bed. Still quite fatigued and weak. Slightly better today compared to yesterday. Remains on AirVo high flow oxygen at 60 L and 90% FiO2 and a nonrebreather mask to maintain O2 saturation in the low to mid 80s. He's been afebrile. White count 27.3. Hemoglobin 15.0. D-dimer 9.89. Sodium 138. Potassium 4.6. Creatinine 1.11. LDH 2774. C-reactive protein less than 5.0. He's been on IV Solu-Medrol 60 every 6, Xarelto, bronchodilators. Received tocilizumab. Chest x-ray shows some worsening left lung infiltrate. Bibasilar patchy infiltrates. He was initiated on Zosyn. Procalcitonin 0.09. He remains on daily IV Lasix. Currently in a negative balance. Patient was reevaluated today on 10/22/2020, remains in the ICU, looks frail and chronically ill, looks weak, remains on high flow oxygen via airvo he is on 80% which was increased earlier to 90% and he is also on 60 L flow. After evaluating the patient today, I transitioned the patient to BiPAP, 100% FiO2 with IPAP of 14 EPAP of 16. Chest x-ray continues to show bilateral interstitial infiltrates, not much of a change in the last few days. ABG earlier on 80% FiO2 showed a pO2 of 45 pCO2 of 35 pH of 7.47. Clinically, the patient is comfortable, does not seem to be in distress, and I am not planning to proceed to intubation and mechanical ventilation at least not at this point. However if his condition gets clinically worse, would definitely recommend intubation and mechanical ventilation. Basic metabolic profile today is relatively normal BUN is 64 creatinine 1.17. His inflammatory markers remained relatively elevated. LDH is 2416, C-reactive protein is 5.1 WBC count is 22.7 hemoglobin is 14.3. Patient remains on Solu-Medrol, Xarelto, bronchodilators, and he received actemra. He also remains on Zosyn empirically. Patient was reevaluated today on 10/23/2020, patient remains remains on BiPAP, with IPAP of 14 EPAP of 6, 60% FiO2. Remains on Xarelto, his overall clinical status is marginal at best. Patient had an episode of confusion yesterday as he went to the bathroom, and he pulled his PICC line, a right femoral line was placed by Dr. Ramos shortly after. Patient is generally weak, lethargic, but arousable, follows simple instructions, and he tells me that he feels fine ABC showed leukocytosis with WBC of 24.3 hemoglobin is 14.7 and at rest are normal BUN is 73 creatinine 1.34. Liver enzymes are relatively elevated. Chest x-ray continues to show bilateral interstitial opacities with a small tiny trace of right-sided pleural effusion Reevaluated today , patient is basically about the same. Remains on BiPAP with the same settings as above, FiO2 was cut down to 55%. He is on IPAP of 14 and EPAP of 6. Remains on the Covid 19 cocktails. No major change in the last 24 hours Liver enzymes remain borderline elevated. D-dimer is 5.49. Electrolytes are normal except for elevated sodium and chloride. BUN is 75 creatinine is 1.28. W a count is 21.6 hemoglobin is 14.3. The patient is seen today 10/25/2020 in follow-up in the intensive care unit. He remains on BiPAP 14/6 and 55% FiO2. He is somewhat more obtunded today. Difficult to arouse. But able to wake up enough to take his medications. His knees are somewhat mottled. He is maintaining O2 saturations in the low 90s. He has 0.9 normal saline at 50 MLS per hour. Remains on IV Solu-Medrol, bronchodilators, Xarelto. White count 20.7. Hemoglobin 13.9. Lymphocytes 0.2. Sodium 157. Potassium 4.4. Creatinine 1.51. Progress note dated 10/24/2020. This is a 71-year-old male who was admitted to the hospital on October 09. He came in with a diagnosis of COVID 19 pneumonia. The patient was transferred to the intensive care unit on October 15. Currently, the patient remains on BiPAP, settings of IPAP 14, EPAP 6, and 55%. The patient's also getting D5W to 150 mL an hour. He did receive 2 doses of TOCI. Unfortunately, the patient has pulled out all his IVs including 2 central lines. A PICC line will be placed today so he can get nutrition. White count 23,000, hemoglobin 11.9, hematocrit 34.8, platelet count 138,000. PT 14, INR 1.4, PTT is 20.7, and d-dimer is 3.74. Sodium is down to 150 from 157, potassium 4.2, chlorides 118, CO2 26, anion gap 6, BUN 95, creatinine 1.94. LDH is 9. Ferritin is 2227. Chest x-ray continues to show bilateral interstitial patchy infiltrates, and a pneumatocele in the right midlung. Progress note dated 10/27/2020. 71-year-old male, admitted to the hospital on October 09. He came in with a diagnosis of COVID 19 pneumonia. Currently, he is on AIRVO, settings of 55 L/m flow, FiO2 of 55%. Saturations are in the low 90s. Is getting D5W at 150 mL an hour, and TPN at 30 mL an hour. His sodium is down to 145. In addition, he received Haldol last night, 8 mg IV. He had a right upper extremity double- lumen PICC line placed yesterday. The arterial line to be discontinued as is nonfunctional. Other than that, the patient is doing about the same. White count 14.4, he will be 10.2, hematocrit 30.6, platelet count 104,000. Sodium 145, potassium 4.4, chlorides 115, CO2 22, anion gap 8, BUN 112, creatinine 2.12. Chest x-ray from October 27, is unchanged. The patient is seen today 10/28/2020 in follow-up in the intensive care unit. He is currently resting fairly comfortably in bed. Remains on AirVo high flow oxygen at 55 L/m and 55% along with a nonrebreather mask. O2 saturations remaining in the low 90s. He is currently being nourished with TPN at 50 MLS per hour, D5 W at 50 mL per hour. White count 15.1. Hemoglobin 9.9. Platelets 97. D-dimer 2.83. Sodium 145. Potassium 4.0. Creatinine 1.88. Remains on bronchodilators, IV Solu-Medrol, Xarelto. More calm and cooperative today. The patient is seen today 10/29/2020 in follow-up in the intensive care unit. Awake and alert. Resting fairly comfortably in bed. He remains on Arava pro-flow oxygen at 55 L/m and 55% FiO2 along with a nonrebreather mask. Sats averaging 85-94%. He has D5W at 50 MLS per hour. TPN at 50 MLS per hour. Sodium 145. Potassium 4.0. Creatinine 1.39. Remains on IV Solu-Medrol, Symbicort, albuterol. Continued on vitamin supplements. Anticoagulated with Xa relto. The patient is seen today 10/30/2020 in follow-up in the intensive care unit. He is currently resting fairly comfortably in bed. He did take his oxygen off yesterday and had significant desaturation. He has required cloth restraints. He is requiring Haldol at times. He is currently on the AirVo high flow oxygen at 60 L/m and 90% FiO2. Being nourished with TPN at 50 MLS per hour. D5W at 50 MLS per hour. Chest x-ray continues to show persistent interstitial and patchy opacities bilaterally. 4.2 cm thin-walled cyst/cavitary lesion mid to lower right lung unchanged. White count 12.9. Hemoglobin 9.2. D-dimer 2.73. Sodium 134. Potassium 3.5. Creatinine 1.01. LDH 2627. C-reactive protein 11.9. Remains on Symbicort, albuterol, IV Solu-Medrol. Anticoagulated with Xarelto. The patient is seen today 10/31/2020 follow-up in the intensive care unit. He remains resting in bed. No real progress. Stays on AirVo 60 L and 90% FiO2 along with a nonrebreather mask. He is on TPN at 80 MLS per hour. D5W 20 ML's per hour. Chest x-ray continues to show mild patchy infiltrates similar to previous. Right-sided PICC line remains in place. White count 15.8. Hemoglobin 9.3. Lymphocytes 0.2. Sodium 142. Potassium 4.3. Creatinine 1.03. AST 102. ALT 250. LDH 2947. C-reactive protein 27.8. Remains on Symbicort, albuterol, IV Solu-Medrol. Anticoagulated with Xarelto. Objective - Vital Signs Vital signs: Vital Signs Temp 98.9 F 10/31/20 12:00 Pulse 107 H 10/31/20 12:00 Resp 35 H 10/31/20 12:00 BP 158/70 10/31/20 12:00 Pulse Ox 94 L 10/31/20 12:00 Intake & Output 10/30/20 10/31/20 10/31/20 18:59 06:59 18:59 Intake Total 2270 1200 600 Output Total 880 975 475 Balance 1390 225 125 Weight 109.8 kg 110.7 kg Intake: IV 1060 1120 200 Dextrose 5% in Water 1, 960 240 120 000 ml @ 20 mls/hr IV . Q24H [facility] Rx#:[id number] Mvi, Adult No.4 with Vit 100 K 10 ml Trace (Conc-1Ml/ Dose) 1 ml Potassium Acetate 10 meq In Amino Acid 5%-D15w 1,000 ml @ 50 mls/hr IV .[id number] [facility] Rx#:[id number] Mvi, Adult No.4 with Vit 880 80 K 10 ml Trace (Conc-1Ml/ Dose) 1 ml Potassium Acetate 10 meq In Amino Acid 5%-D15w 1,000 ml @ 80 mls/hr IV .BY DURATION [facility] Rx#:[id number] Intake, IV Titration 990 80 400 Amount Mvi, Adult No.4 with Vit 240 80 K 10 ml Trace (Conc-1Ml/ Dose) 1 ml Potassium Acetate 10 meq In Amino Acid 5%-D15w 1,000 ml @ 80 mls/hr IV .BY DURATION [facility] Rx#:[id number] Mvi, Adult No.4 with Vit 350 K 10 ml Trace (Conc-1Ml/ Dose) 1 ml Potassium Acetate 20 meq In Amino Acid 5%-D15w 1,000 ml @ 50 mls/hr IV .[id number] [facility] Rx#:[id number] Potassium Acetate 10 meq 400 In Amino Acid 5%-D15w 1, 000 ml @ 80 mls/hr IV .BY DURATION [facility] Rx#: [id number] Potassium Chloride 20 meq 200 In Water For Injection 1 100ml.bag @ 50 mls/hr IVPB Q2H [facility] Rx#: [id number] levETIRAcetam IV 500 mg 200 In Sodium Chloride 0.9% 100 ml @ 400 mls/hr IVPB Q12HR [facility] Rx#:[id number] Oral 220 Output: Urine 880 [id number] 475 Other: Voiding Method Indwelling Catheter Indwelling Catheter Indwelling Catheter ABP, PAP, CO, CI - Last Documented Arterial Blood Pressure 69/48 - Exam GENERAL EXAM: Alert, pleasant 70-year-old gentleman, on AirVo at 60 L and 90% FiO2 with a nonrebreather mask, comfortable in no apparent distress. HEAD: Normocephalic. EYES: Normal reaction of pupils, equal size. NOSE: Clear with pink turbinates. THROAT: No erythema or exudates. NECK: No masses, no JVD. CHEST: No chest wall deformity. LUNGS: Equal air entry with few scattered rhonchi, crackles in the bases. CVS: S1 and S2 normal with no audible murmur, regular rhythm. ABDOMEN: No hepatosplenomegaly, normal bowel sounds, no guarding or rigidity. SPINE: No scoliosis or deformity SKIN: No rashes CENTRAL NERVOUS SYSTEM: No focal deficits, tone is normal in all 4 extremities. EXTREMITIES: There is no peripheral edema. No clubbing, no cyanosis. Peripheral pulses are intact. - Labs CBC & Chem 7: 10/31/20 03:57 10/31/20 03:56 Labs: Abnormal Lab Results - Last 24 Hours (Table) 10/30/20 10/30/20 10/31/20 Range/Units 18:03 21:54 03:56 WBC (3.8-10.6) k/uL RBC (4.30-5.90) m/uL Hgb (13.0-17.5) gm/dL Hct (39.0-53.0) % RDW (11.5-15.5) % Plt Count (150-450) k/uL Neutrophils # (1.3-7.7) k/uL Lymphocytes # (1.0-4.8) k/uL Chloride 114 H (98-107) mmol/L Carbon Dioxide 21 L (22-30) mmol/L BUN 56 H (9-20) mg/dL Glucose 179 H (74-99) mg/dL POC Glucose (mg/dL) 209 H 178 H (75-99) mg/dL Calcium 8.2 L (8.4-10.2) mg/dL Magnesium 2.4 H (1.6-2.3) mg/dL Ferritin 910.9 H (22.0-322.0) ng/mL Total Bilirubin 3.6 H (0.2-1.3) mg/dL AST 102 H (17-59) U/L ALT 250 H (4-49) U/L Alkaline Phosphatase 141 H (38-126) U/L Lactate Dehydrogenase 2947 H (313-618) U/L Creatine Kinase 335 H (55-170) U/L C-Reactive Protein 27.8 H (<10.0) mg/L Total Protein 5.3 L (6.3-8.2) g/dL Albumin 2.6 L (3.5-5.0) g/dL 10/31/20 10/31/20 10/31/20 Range/Units 03:57 06:44 11:59 WBC 15.8 H (3.8-10.6) k/uL RBC 2.83 L (4.30-5.90) m/uL Hgb 9.3 L (13.0-17.5) gm/dL Hct 27.7 L (39.0-53.0) % RDW 17.1 H (11.5-15.5) % Plt Count 85 L (150-450) k/uL Neutrophils # 14.9 H (1.3-7.7) k/uL Lymphocytes # 0.2 L (1.0-4.8) k/uL Chloride (98-107) mmol/L Carbon Dioxide (22-30) mmol/L BUN (9-20) mg/dL Glucose (74-99) mg/dL POC Glucose (mg/dL) 237 H 240 H (75-99) mg/dL Calcium (8.4-10.2) mg/dL Magnesium (1.6-2.3) mg/dL Ferritin (22.0-322.0) ng/mL Total Bilirubin (0.2-1.3) mg/dL AST (17-59) U/L ALT (4-49) U/L Alkaline Phosphatase (38-126) U/L Lactate Dehydrogenase (313-618) U/L Creatine Kinase (55-170) U/L C-Reactive Protein (<10.0) mg/L Total Protein (6.3-8.2) g/dL Albumin (3.5-5.0) g/dL Assessment and Plan Assessment: 1 Acute on chronic hypoxic respiratory failure secondary to acute CoVID 19 pneumonia, on AirVo at 60L/min and 90% FiO2 along with a nonrebreather mask. He received Tocilizumab. 2 Elevated inflammatory markers secondary to above 3 Acute on chronic renal failure 4 Chronic hypoxic respiratory failure secondary to chronic obstructive pulmonary disease on home O2 at 2 L/m 5 Former smoker 6 History of coronary disease 7 Hyperlipidemia 8 Hypertension 9 History of PE/DVT anticoagulate with Xarelto 10 History of depression 11 Obstructive sleep apnea utilizing CPAP 12 History of peripheral vascular disease 13 BPH Plan: The patient was seen and evaluated by Dr. Ramos Chest x-ray and labs reviewed Remains on AirVo at 90% FiO2 Continue IV Solu-Medrol 60 mg every 6 hours. Anticoagulated with Xarelto Continue TPN for nutritional support Condition remains guarded We will continue to follow and make further recommendations based on his clinical status Critical care time 37 minutes I, the cosigning physician, performed a history & physical examination of the patient. Lungs sounds with few scattered rhonchi, crackles in the bilateral posterior bases. Maintaining good O2 saturations in the 90s on AirVo high flow at 60L/min, 90% Fio2 along with a nonrebreather mask. I discussed the assessment and plan of care with my nurse practitioner, Kandis Pepe. I attest to the above note as dictated by her.
[2020-10-31 16:56] LABS: Glucose,Whole Blood 229 mg/dL (75-99)
[2020-10-31] MEDS: METOPROLOL TARTRATE 5 MG/5 ML VIAL IVP SCH (20:22)
[2020-10-31] MEDS: ENOXAPARIN 100 MG/ML SYRINGE SQ SCH (20:23)
[2020-10-31 20:59] LABS: Glucose,Whole Blood 144 mg/dL (75-99)
[2020-10-31] MEDS: HALOPERIDOL LACTATE 5 MG/ML 1 ML VIAL IVP PRN (21:08)
[2020-11-01 04:36] LABS: Anisocytosis Slight; HGB 9.8 gm/dL (13.0-17.5); Hypochromasia Slight; MCH 32.4 pg (25.0-35.0); MCHC 31.7 g/dL (31.0-37.0); MCV 102.3 fL (80.0-100.0); Macrocytosis Moderate; Mean Platelet Volume 9.9; RBC 3.03 m/uL (4.30-5.90); RDW 18.2 % (11.5-15.5); WBC 15.5 k/uL (3.8-10.6)
[2020-11-01 04:37] LABS: Platelet Count 78 k/uL (150-450)
[2020-11-01 04:47] LABS: Albumin 2.6 g/dL (3.5-5.0); Calcium 8.6 mg/dL (8.4-10.2); Magnesium 2.3 mg/dL (1.6-2.3); Phosphorus 3.5 mg/dL (2.5-4.5); Potassium 4.4 mmol/L (3.5-5.1); Total Bilirubin 3.5 mg/dL (0.2-1.3); Total Protein 5.4 g/dL (6.3-8.2)
[2020-11-01 06:32] LABS: Glucose,Whole Blood 252 mg/dL (75-99)
[2020-11-01] MEDS ORDERED: INSULIN DETEMIR (LEVEMIR) 100 UNIT/ML SYR SQ SCH (07:00)
[2020-11-01] MEDS: INSULIN ASPART (NovoLOG) 100 UNIT/ML VIAL SQ SCH ×2 (07:06)
[2020-11-01 07:41] LABS: Band Neutrophils % 3 %; Eosinophils # (M) 0.16 k/uL (0-0.7); Lymphocytes # (M) 0.78 k/uL (1.0-4.8); Monocytes # (M) 0.16 k/uL (0-1.0); Neutrophils % (M) 90 %; Nucleated Red Blood Cells 0 /100 WBC (0-0); Total Cells Counted 100
[2020-11-01 07:43] LABS: Polychromasia Present
[2020-11-01] MEDS: METOPROLOL TARTRATE 5 MG/5 ML VIAL IVP SCH (07:46)
[2020-11-01] MEDS: methylPREDNISolone SOD SUCCI 40 MG/ML 1 ML VIAL IV SCH (07:46)
[2020-11-01] MEDS: PANTOPRAZOLE 40 MG/10 ML VIAL IVP SCH (07:46)
[2020-11-01] MEDS: HALOPERIDOL LACTATE 5 MG/ML 1 ML VIAL IVP PRN (07:46)
[2020-11-01] MEDS ORDERED: MORPHINE SULFATE 4 MG/ML SYRINGE IVP ONE (08:29)
[2020-11-01] MEDS ORDERED: MORPHINE SULFATE 2 MG/ML SYRINGE IV PRN (08:29)
[2020-11-01] MEDS ORDERED: LORazepam 2 MG/ML INJ IV PRN (08:29)
[2020-11-01] MEDS ORDERED: MORPHINE SULFATE (100 MG/2 ML) 100 MG in SODIUM CHLORIDE 0.9% 100 ML IV SCH (08:30)
[2020-11-01] MEDS: SYMBICORT 160-4.5 MCG INHALER INHALATION SCH (09:34)
[2020-11-01] MEDS: ALBUTEROL HFA INHALER INHALATION PRN (09:34)
[2020-11-01 09:39] LABS: Ferritin 944.2 ng/mL (22.0-322.0)
[2020-11-01] MEDS: ASPIRIN 81 MG PO SCH (09:48)
[2020-11-01] MEDS: ENOXAPARIN 100 MG/ML SYRINGE SQ SCH (09:48)
[2020-11-01] MEDS: levETIRAcetam IV 500 MG in SODIUM CHLORIDE 0.9% 100 ML IVPB SCH (09:49)
[2020-11-01] MEDS: DEXTROSE 5% IN WATER 1,000 ML IV SCH (10:13)
[2020-11-01] MEDS ORDERED: SODIUM CHLORIDE 0.9% 1,000 ML IV ONE (11:08)
--- NOTE | 2020-11-01 11:48 | P.PN ---
Subjective Progress Note Date: 11/01/20 Principal diagnosis: Acute hypoxemic respiratory failure. The patient is seen today 10/20/2020 in follow-up in the intensive care unit. He is currently sitting up in bed. Awake and alert in no acute distress. He is still very weak and fatigued. He has very little reserve. Any little movement decreases his oxygen saturations. He is currently on AirVo high flow oxygen at 60 L and 90% FiO2 along with a nonrebreather mask. He's been on IV Solu-Medrol 60 every 6, Xarelto, bronchodilators. Received tocilizumab. Chest x-ray continues to show bilateral interstitial infiltrates with trace effusions. He remains on IV diuretics.. Plan to add Zosyn. Pro-calcitonin pending. White count up to 21.3. Hemoglobin 14.3. Sodium 136. Potassium 4.5. Creatinine 1.07. C-reactive protein less than 5.0. The patient is seen today 10/21/2020 in follow-up in the intensive care unit. He is currently awake and alert in no acute distress. Resting fairly comfortably in bed. Still quite fatigued and weak. Slightly better today compared to yesterday. Remains on AirVo high flow oxygen at 60 L and 90% FiO2 and a nonrebreather mask to maintain O2 saturation in the low to mid 80s. He's been afebrile. White count 27.3. Hemoglobin 15.0. D-dimer 9.89. Sodium 138. Potassium 4.6. Creatinine 1.11. LDH 2774. C-reactive protein less than 5.0. He's been on IV Solu-Medrol 60 every 6, Xarelto, bronchodilators. Received tocilizumab. Chest x-ray shows some worsening left lung infiltrate. Bibasilar patchy infiltrates. He was initiated on Zosyn. Procalcitonin 0.09. He remains on daily IV Lasix. Currently in a negative balance. Patient was reevaluated today on 10/22/2020, remains in the ICU, looks frail and chronically ill, looks weak, remains on high flow oxygen via airvo he is on 80% which was increased earlier to 90% and he is also on 60 L flow. After evaluat ing the patient today, I transitioned the patient to BiPAP, 100% FiO2 with IPAP of 14 EPAP of 16. Chest x-ray continues to show bilateral interstitial infiltrates, not much of a change in the last few days. ABG earlier on 80% FiO2 showed a pO2 of 45 pCO2 of 35 pH of 7.47. Clinically, the patient is comfortable, does not seem to be in distress, and I am not planning to proceed to intubation and mechanical ventilation at least not at this point. However if his condition gets clinically worse, would definitely recommend intubation and mechanical ventilation. Basic metabolic profile today is relatively normal BUN is 64 creatinine 1.17. His inflammatory markers remained relatively elevated. LDH is 2416, C-reactive protein is 5.1 WBC count is 22.7 hemoglobin is 14.3. Patient remains on Solu-Medrol, Xarelto, bronchodilators, and he received actemra. He also remains on Zosyn empirically. Patient was reevaluated today on 10/23/2020, patient remains remains on BiPAP, with IPAP of 14 EPAP of 6, 60% FiO2. Remains on Xarelto, his overall clinical status is marginal at best. Patient had an episode of confusion yesterday as he went to the bathroom, and he pulled his PICC line, a right femoral line was placed by Dr. Ramos shortly after. Patient is generally weak, lethargic, but arousable, follows simple instructions, and he tells me that he feels fine ABC showed leukocytosis with WBC of 24.3 hemoglobin is 14.7 and at rest are normal BUN is 73 creatinine 1.34. Liver enzymes are relatively elevated. Chest x-ray continues to show bilateral interstitial opacities with a small tiny trace of right-sided pleural effusion Reevaluated today , patient is basically about the same. Remains on BiPAP with the same settings as above, FiO2 was cut down to 55%. He is on IPAP of 14 and EPAP of 6. Remains on the Covid 19 cocktails. No major change in the last 24 hours Liver enzymes remain borderline elevated. D-dimer is 5.49. Electrolytes are normal except for elevated sodium and chloride. BUN is 75 creatinine is 1.28. W a count is 21.6 hemoglobin is 14.3. The patient is seen today 10/25/2020 in follow-up in the intensive care unit. He remains on BiPAP 14/6 and 55% FiO2. He is somewhat more obtunded today. Difficult to arouse. But able to wake up enough to take his medications. His knees are somewhat mottled. He is maintaining O2 saturations in the low 90s. He has 0.9 normal saline at 50 MLS per hour. Remains on IV Solu-Medrol, bronchodilators, Xarelto. White count 20.7. Hemoglobin 13.9. Lymphocytes 0.2. Sodium 157. Potassium 4.4. Creatinine 1.51. Progress note dated 10/24/2020. This is a 71-year-old male who was admitted to the hospital on October 09. He came in with a diagnosis of COVID 19 pneumonia. The patient was transferred to the intensive care unit on October 15. Currently, the patient remains on BiPAP, settings of IPAP 14, EPAP 6, and 55%. The patient's also getting D5W to 150 mL an hour. He did receive 2 doses of TOCI. Unfortunately, the patient has pulled out all his IVs including 2 central lines. A PICC line will be placed today so he can get nutrition. White count 23,000, hemoglobin 11.9, hematocrit 34.8, platelet count 138,000. PT 14, INR 1.4, PTT is 20.7, and d-dimer is 3.74. Sodium is down to 150 from 157, potassium 4.2, chlorides 118, CO2 26, anion gap 6, BUN 95, creatinine 1.94. LDH is 2059. Ferritin is 2227. Chest x-ray continues to show bilateral interstitial patchy infiltrates, and a pneumatocele in the right midlung. Progress note dated 10/27/2020. 71-year-old male, admitted to the hospital on October 09. He came in with a diagnosis of COVID 19 pneumonia. Currently, he is on AIRVO, settings of 55 L/m flow, FiO2 of 55%. Saturations are in the low 90s. Is getting D5W at 150 mL an hour, and TPN at 30 mL an hour. His sodium is down to 145. In addition, he received Haldol last night, 8 mg IV. He had a right upper extremity double- lumen PICC line placed yesterday. The arterial line to be discontinued as is nonfunctional. Other than that, the patient is doing about the same. White count 14.4, he will be 10.2, hematocrit 30.6, platelet count 104,000. Sodium 145, potassium 4.4, chlorides 115, CO2 22, anion gap 8, BUN 112, creatinine 2.12. Chest x-ray from October 27, is unchanged. Progress note dated 11/01/2020. 71-year-old male, who was admitted with a diagnosis of hypoxemic respiratory failure, secondary to Covid 19 pneumonia. The patient's currently on AIRVO, 60 L/m, 90%. The patient also has a nonrebreather mask over the cannula. He is getting TPN at 80 mL an hour, D5W 20 mL an hour. Patient's not looking very good at all, and yesterday, I spoke to the , he was made a DO NOT RESUSCITATE. Today he looks worse, he looks very comfortable. I called his wi fe Lin again, and she agreed to make the patient a comfort measures only. I think that's very appropriate. The patient's belly breathing, looks in distress. He isn't going to last very long in my opinion. Labs today include a white count 15.5, hemoglobin 9.8, hematocrit 31, platelet count 78,000. D-dimer is 5.41. Sodium 143, potassium 4.4, chlorides 1:15, CO2 19 anion gap 9, BUN 56, creatinine 1.02. The patient's LDH is 2952. C-reactive protein is 39. Chest x-ray shows worsening bilateral infiltrates. Objective - Vital Signs Vital signs: Vital Signs Temp 98.8 F 11/01/20 04:00 Pulse 131 H 11/01/20 05:00 Resp 45 H 11/01/20 05:00 BP 111/91 11/01/20 05:00 Pulse Ox 76 L 11/01/20 09:35 Intake & Output 10/31/20 11/01/20 11/01/20 18:59 06:59 18:59 Intake Total 2205 1200 990.013 Output Total 890 1100 175 Balance 1315 100 815.013 Weight 110 kg Intake: IV 320 1120 340 Dextrose 5% in Water 1, 240 240 100 000 ml @ 20 mls/hr IV . Q24H [facility] Rx#:[id number] Mvi, Adult No.4 with Vit 80 K 10 ml Trace (Conc-1Ml/ Dose) 1 ml Potassium Acetate 10 meq In Amino Acid 5%-D15w 1,000 ml @ 80 mls/hr IV .BY DURATION [facility] Rx#:[id number] Potassium Acetate 10 meq 880 240 In Amino Acid 5%-D15w 1, 000 ml @ 80 mls/hr IV .BY DURATION [facility]ANC[facility] Rx#: [id number] Intake, IV Titration 1885 80 650.013 Amount Morphine Sulfate (100 mg/ 0.680 2 ml) 100 mg In Sodium Chloride 0.9% 100 ml @ 1 MG/HR 1.02 mls/hr IV . Q24H [facility] Rx#:[id number] Mvi, Adult No.4 with Vit 400 80 K 10 ml Trace (Conc-1Ml/ Dose) 1 ml Potassium Acetate 10 meq In Amino Acid 5%-D15w 1,000 ml @ 80 mls/hr IV .BY DURATION [facility]ANC[facility] Rx#:[id number] Potassium Acetate 10 meq 1485 649.333 In Amino Acid 5%-D15w 1, 000 ml @ 80 mls/hr IV .BY DURATION [facility]ANC[facility] Rx#: [id number] Output: Urine 890 1100 175 Other: Voiding Method Indwelling Catheter Indwelling Catheter Indwelling Catheter # Bowel Movements 1 ABP, PAP, CO, CI - Last Documented Arterial Blood Pressure 69/48 - Exam Confused, lethargic, he does arouse, AIRVO cannula in place. Tachypnea. HEENT examination is grossly unremarkable. Nonrebreather mask over AIRVO. Neck supple. Full range of motion. No adenopathy thyromegaly or neck vein distention. Cardiovascular examination reveals regular rhythm rate. S1-S2 normal. No S3 or S4. No discernible murmur noted. Heart rate 131 bpm. Lungs reveal diffuse bilateral mostly basilar rhonchi and crackles. No wheezes. Breath sounds equal bilaterally. Abdomen soft bowel sounds are heard. No masses or tenderness. Extremities are intact. No cyanosis clubbing or edema. Right upper extremity PICC line noted. Extremities are cool. Skin is without rash or lesion. Neurologic examination reveals a patient that is very lethargic, and unresponsive. - Labs CBC & Chem 7: 11/01/20 04:06 11/01/20 04:06 Labs: Abnormal Lab Results - Last 24 Hours (Table) 10/31/20 10/31/20 10/31/20 Range/Units 03:56 11:59 16:54 WBC (3.8-10.6) k/uL RBC (4.30-5.90) m/uL Hgb (13.0-17.5) gm/dL Hct (39.0-53.0) % MCV (80.0-100.0) fL RDW (11.5-15.5) % Plt Count (150-450) k/uL Neutrophils # (Manual) (1.3-7.7) k/uL Lymphocytes # (Manual) (1.0-4.8) k/uL D-Dimer (<0.60) mg/L FEU Chloride (98-107) mmol/L Carbon Dioxide (22-30) mmol/L BUN (9-20) mg/dL Glucose (74-99) mg/dL POC Glucose (mg/dL) 240 H 229 H (75-99) mg/dL Ferritin 910.9 H (22.0-322.0) ng/mL Total Bilirubin (0.2-1.3) mg/dL AST (17-59) U/L ALT (4-49) U/L Alkaline Phosphatase (38-126) U/L Lactate Dehydrogenase (313-618) U/L Creatine Kinase (55-170) U/L C-Reactive Protein (<10.0) mg/L Total Protein (6.3-8.2) g/dL Albumin (3.5-5.0) g/dL 10/31/20 11/01/20 11/01/20 Range/Units 20:57 04:06 04:06 WBC 15.5 H (3.8-10.6) k/uL RBC 3.03 L (4.30-5.90) m/uL Hgb 9.8 L (13.0-17.5) gm/dL Hct 31.0 L (39.0-53.0) % MCV 102.3 H (80.0-100.0) fL RDW 18.2 H (11.5-15.5) % Plt Count 78 L (150-450) k/uL Neutrophils # (Manual) 14.40 H (1.3-7.7) k/uL Lymphocytes # (Manual) 0.78 L (1.0-4.8) k/uL D-Dimer 5.41 H (<0.60) mg/L FEU Chloride (98-107) mmol/L Carbon Dioxide (22-30) mmol/L BUN (9-20) mg/dL Glucose (74-99) mg/dL POC Glucose (mg/dL) 144 H (75-99) mg/dL Ferritin (22.0-322.0) ng/mL Total Bilirubin (0.2-1.3) mg/dL AST (17-59) U/L ALT (4-49) U/L Alkaline Phosphatase (38-126) U/L Lactate Dehydrogenase (313-618) U/L Creatine Kinase (55-170) U/L C-Reactive Protein (<10.0) mg/L Total Protein (6.3-8.2) g/dL Albumin (3.5-5.0) g/dL 11/01/20 11/01/20 Range/Units 04:06 06:30 WBC (3.8-10.6) k/uL RBC (4.30-5.90) m/uL Hgb (13.0-17.5) gm/dL Hct (39.0-53.0) % MCV (80.0-100.0) fL RDW (11.5-15.5) % Plt Count (150-450) k/uL Neutrophils # (Manual) (1.3-7.7) k/uL Lymphocytes # (Manual) (1.0-4.8) k/uL D-Dimer (<0.60) mg/L FEU Chloride 115 H (98-107) mmol/L Carbon Dioxide 19 L (22-30) mmol/L BUN 56 H (9-20) mg/dL Glucose 230 H (74-99) mg/dL POC Glucose (mg/dL) 252 H (75-99) mg/dL Ferritin 944.2 H (22.0-322.0) ng/mL Total Bilirubin 3.5 H (0.2-1.3) mg/dL AST 100 H (17-59) U/L ALT 231 H (4-49) U/L Alkaline Phosphatase 156 H (38-126) U/L Lactate Dehydrogenase 2952 H (313-618) U/L Creatine Kinase 471 H (55-170) U/L C-Reactive Protein 39.0 H (<10.0) mg/L Total Protein 5.4 L (6.3-8.2) g/dL Albumin 2.6 L (3.5-5.0) g/dL Assessment and Plan Assessment: Acute on chronic hypoxemic respiratory failure, secondary to COVID 19 pneumonia. Acute on chronic renal failure. Chronic hypoxemic respiratory failure secondary to COPD, on home O2 at 2 L. History of previous heavy tobacco use. History of CAD. History of hyperlipidemia. History of hypertension. History of DVT/PE, currently on Xarelto. History of depression. History of sleep apnea syndrome, currently on CPAP. Peripheral vascular occlusive disease. History of BPH. Plan: Plan dated 10/26/2020. Patient will continue on IV fluids, for his hypernatremia which is improved. Unfortunately, the patient has pulled out all his IVs again. Another PICC line will be placed. The patient has not been able to take anything by mouth. We'll need to start some TPN on the patient. Additional recommendations and suggestions are forthcoming. Prognosis is guarded. We will continue to follow. All medications are reviewed. Plan dated 10/27/2020. Yesterday, the patient was on BiPAP. Today he is on AIRVO. He is at 55 L/m with an FiO2 of 55%. He is getting D5W at 150 mL an hour, and TPN at 30 mL an hour. Sodium is 145. He last night, he required Haldol and milligrams IV push. A right upper extremity double-lumen PICC line was placed. The arterial line is nonfunctional and I asked the nurse to remove it. Chest x-ray, labs, and medications are reviewed. Prognosis is guarded. We will continue to follow the patient closely. He is a full code, and ultimately, may end up on mechanical ventilator. Plan dated 11/01/2020. Currently, the patient is on AIRVO, at 60 L/m, and 90%. The patient is receiving TPN at 80 mL an hour, and D5W at 20 mL an hour. The patient in a lot of distress right now, and is white. I did speak to his , Shanita, and she agrees to make the patient comfort care. I think this is appropriate. Yesterday, we spoke, she agreed to make the patient DO NOT RESUSCITATE. Despite a great effort in trying to turn him around, he is not really responding to therapy treatments. She never wanted him on mechanical ventilator. He would not have wanted that either. At this point, we will stop all unnecessary medic ations the patient was placed on a morphine drip. He will receive oxygen therapy. He'll also receive a scopolamine patch and anything else to help him in the dying process. I explained to her that we really do not think to accelerated dying process just to try to make it comfortable for the patient. She's currently in the room with her . Time with Patient: Greater than 30
--- NOTE | 2020-11-01 12:25 | XR ---
EXAMINATION TYPE: XR chest 1V DATE OF EXAM: 11/01/2020 COMPARISON: 10/31/2020 INDICATION: Covid TECHNIQUE: Single frontal view of the chest is obtained. FINDINGS: The heart size is normal. The pulmonary vasculature is prominent. Diffuse increased lung markings are present. This is nonspecific. This is improved from comparison. R ight-sided PICC line is present in superior vena cava region. IMPRESSION: 1. Improving diffuse infiltrate. Can be compatible for atypical pneumonia.
[2020-11-01 14:11] VITALS: TEMP 98.6
[2020-11-01 15:57] VITALS: RESP 19
[2020-11-01 16:14] VITALS: BP 139/97; PULSE 110
--- NOTE | 2020-11-02 15:03 | P.DS ---
Providers Date of admission: 10/09/20 23:00 Expected date of discharge: 11/01/20 Attending physician: Kathleen Jaffe Primary care physician: Bernabe [facility]do[facility] Course: HISTORY OF PRESENT ILLNESS This is a 70 years old male patient of Dr. Polo with past medical history of pulmonary embolism diagnosed in [place] 2 years ago, history of lower extremity DVT, coronary artery disease no stent, history of heart failure unknown if systolic or diastolic, COPD, hyperlipidemia, hypertension, osteoarthritis, prostate cancer, skin disorder,'s obstructive sleep apnea on CPAP, subclavian steal syndrome with stent placement, history of recent penile implant on 07/27/2016. Patient has chronic shortness of breath that has been going on for the past 2 years since the diagnosis of pulmonary embolism with O2 requirements at 2 L nasal cannula Patient is currently on maintenance dose of xarelto at 10 mg daily. He presents emergency room secondary to worsening dyspnea, x 7 days without any medical intervention prior to this, He was seen in the Emergency room for the shortness of breath, worsening dyspnea and exertion, and was found to be SARS cov 2 positive. Chest x-ray, shows bilateral pulmonary interstitial infiltrates compared to old exam, with a similar atelectasis. Poor inspiration, no hilar masses laboratory shows hemoglobin of 12.9, WBC count of 7, creatinine of 1.47, iron of 1.2, glucose 120 CRP 88, pro-calcitonin slightly elevated 0.22. Patient denies any chronic prednisone exposure, Consult were made with pulmonary, Dr. Ramos, pulse oximetry would be 9 PT 1697 at 2-3 L nasal cannula, blood pressure of 129/66. 10/11: Patient was seen for follow-up today, he is a little bit tachypnea, very small amount of labored breathing only on exertion, no conversational dyspnea, O2 at 2 L, sats 95%, no clearance from pulmonary medicine are stable were rounding today, no cough, no pleurisy, no chest pain no palpitations, creatinine at 1.5 today, electrolytes are normal, wbc of 4.7, LDH of 784, ferritin 533 patient is on IV dexamethasone maintained on Xarelto, no new treatment from pulmonary critical care today, currently stable 10/12: A-Team is called during the night due to hypoxia and patient was started on AirVo. Respiratory rate is been in the 40s, heart rate 74, afebrile, pulse ox 96%. Chest x-ray from yesterday revealed patchy. Hilar and basilar infiltrates persist and have progressed slightly in the interval. Repeat blood work reveals WBC 6.8, hemoglobin 12.4, platelet count 135. LDH 1228. C- reactive protein 85.1. The patient has developed increasing difficulty with breathing. He denies having any chest pain. He states he could not sleep through the night. 10/13: Patient states that his breathing status is about the same as yesterday or little bit more difficult. He denies any coughing up blood. He denies any abdominal pain, nausea or vomiting, no diarrhea. Patient remains on Arava with pulse ox of 88-90%. Afebrile, heart rate 69, respiratory rate 40, blood pressure 137/76. Patient is status post 2 doses of Tocilizumab. patient is followed closely by pulmonary medicine. 10/14: Patient is currently on AirVo and nonrebreather but states that he is feeling better today and that his breathing is better. He has been afebrile, heart rate 72, respiratory rate 36, blood pressure 130/70, pulse ox 90%. He denies having abdominal pain, nausea vomiting or diarrhea. He remains on Solu- Medrol 60 mg IV every 6 hours. 10/15: Patient was transferred to the ICU per Dr. rWight. He is currently on AirVo only at time of evaluation and is eating his breakfast. Patient has been maintained on Arava plus nonrebreather. His breathing status appears to be improved from yesterday. His pulse ox is 88%. Afebrile, heart rate 76, respiratory rate 25, blood pressure 131/81. Repeat chest x-ray reveals stable chest. Repeat blood work reveals normal CBC. D-dimer 1.85. C-reactive protein 29. LDH is pending. Ferritin level 1340.6. Patient is scheduled for PICC line insertion today. Lasix 40 mg IV push ordered today by pulmonary medicine. Patient is continued on Solu-Medrol 60 mg every 6 hours. Patient not receiving any antibiotics at this time. 10/16: Patient remains in the intensive care unit. He was off nonrebreather and only on AirVo yesterday most of the day. Now he is on both AirVo and nonrebreather and taking the nonrebreather on and off as he needs it. He is eating 50% of his meals. He has been afebrile, heart rate 69, respiratory rate 34, blood pressure 142/80, pulse ox 88% on both AirVo and nonrebreather. Repeat blood work reveals W BC 13.5, hemoglobin 13.6, platelet count 247. Electrolytes normal. BUN 52 and creatinine 1.2. Blood sugars running between 120 975. Total bilirubin 1.0, AST 111, ALT 137, alkaline phosphatase 80. C-reactive protein 16.3, CK 65. Repeat chest x-ray reveals bilateral lower lobe infiltrate and small effusion with coarsened interstitium correlate for venous congestion versus interstitial pneumonia. Patient surprisingly feels his breathing is stable. He has no new complaints. 10/17: Patient remains in intensive care unit. He has been off the nonrebreather for the past hour and a half with only AirVo with pulse ox in the high 80s. He has been afebrile, heart rate in the 70s, blood pressure 142/86, respiratory rate in 30s. Patient verbalizes that his breathing status is improving. Repeat blood work reveals WBC 15.8, hemoglobin 13.7, platelet count 239. Electrolytes normal. BUN 54 and creatinine 1.09. Blood sugars running between 120 765. Total bilirubin 1.5, AST 195, ALT 304, alkaline phosphatase 92, LDH 2785. CK 51, C-reactive protein 11.3. Repeat chest x-ray reveals mild interval progression in the lung infiltrates within the right lung. Left lung is stable. No change in small bilateral pleural effusions. 10/18: Patient remains in intensive care unit. He is seen today on AirVo and nonrebreather and pulse ox has been marginal in the low to mid 80s. Heart rate is in the 70s, respiratory rate in the 30s, blood pressure 136/87. He has been afebrile. Repeat blood work reveals WBC 18.4. Electrolytes normal, BUN 59 and creatinine 1.03. Blood sugars running between 126 and 166. Ferritin level 1817. D-dimer 11.45. Total bilirubin 1.7, AST 128, ALT 309, alkaline phosphatase 121. LDH 3174. CK 98, C-reactive protein 5.9. Repeat chest x-ray reveals left perihilar and basilar infiltrates persist 10/19: Patient's breathing status remains about the same. He has been afebrile, heart rate 70s, respiratory rate 29, blood pressure 143/87. Pulse ox is running mid to high 80s with nonrebreather and high flow nasal cannula. WBC 19.1, hemoglobin 14.1, platelet count 247. D-dimer 11.64. Electrolytes normal. BUN 55 and creatinine 1.05. Blood sugars running between 124 and 197. Ferritin 1583. Total bilirubin 1.4, AST 99, ALT 266, alk phos was 123. LDH 2962. C- reactive protein 5.4. Repeat chest x-ray shows no pneumothorax. Interstitial and patchy bilateral infiltrates. 10/20: Patient remains in the intensive care unit and he is currently on nonrebreather and high flow nasal cannula. Pulse ox is running 86-91%. He has been afebrile, heart rate in the 70s, respiratory rate 29, blood pressure 145/81. WBC 21.3. Sodium 136, BUN 57 and creatinine 1.07. Blood sugars running between 100 3459. Ferritin level 1616. Total bilirubin 1.8, AST 87, ALT 262, alkaline phosphatase 131. C-reactive protein normal at less than 5. Repeat chest x-ray reveals relatively stable with interstitial infiltrates and possible trace effusions. 10/21:patient remains in the intensive care unit. He is on Arava oh and nonrebreather with pulse ox in the mid 80s. Patient has been afebrile.Heart rate in the 70s and 60s, respiratory rate in the mid to high 20s, pulse ox anywhere between 81-89%, blood pressure 119/81. WBC 27.3, hemoglobin 15, platelet count 202. Electrolytes normal, BUN 61 and creatinine 1.11. Blood sugars running between 141 and 158. Ferritin level 1639, total bilirubin 2.0, AST 104, ALT 296, alkaline phosphatase 136. LDH 2774. C-reactive protein less than 5. Patient is continued on Zosyn, IV Solu-Medrol heart rate in the 60s and 70s, respiratory rate in the 20s n and IV Lasix. 10/22: Patient remains in the intensive care unit currently on BiPAP. Patient had some increased anxiety this morning was given Xanax and was lethargic following with desats and subsequently placed on BiPAP. He's been running high 90s for pulse ox. He's been afebrile, heart rate in the 70s, respiratory rate in the 20s to 30s, blood pressure 125/91. Repeat blood work reveals W BC 22.7, hemoglobin 14.3, platelet count 173. Electrolytes are normal except for CO2 of 31, BUN 64 and creatinine 1.17. Ferritin 1475.9. Total bilirubin 2.3, AST 88, ALT 281, alkaline phosphatase 133. LDH 2416. Blood sugars running between 144 and 158. Repeat chest x-ray reveals mild diffuse increased lung opacities. Patient is continued on Zosyn, Solu-Medrol. Patient may require intubation. 10/23: The patient remains on BiPAP with pulse ox between 86 and 92 with FiO2 of 60%, respiratory rate anywhere between 28 and 40, heart rate in the 80s, afebrile. Patient is getting tired and fatigued. He actually pulled his PICC line out and arterial line and femoral triple-lumen catheter was placed. Repeat chest x-ray reveals similar diffuse bilateral interstitial opacities. Possible trace right effusion. Patient's mental status is stable today. He did have some mild confusion and lethargy yesterday. WBC 24.3. BUN 73 and creatinine 1.34. Blood sugars running between 140 154. Total bilirubin 3.1, AST 117, ALT 329, alkaline phosphatase 137. 10/26: Patient remains in the intensive care unit on BiPAP. Pulse ox is 89-93% on BiPAP of 55% FiO2. Respiratory rate in the 30s, afebrile, heart rate in the 80s and 90s, blood pressure 101/69. Repeat blood work reveals W BC 23.0, hemoglobin 11.9, platelet count 138. INR is 1.4. D-dimer 3.7 following her. Sodium 150, potassium 4.2, chloride 118, CO2 26, BUN 95 and creatinine 1.94. Blood sugars running between 124 and 214. Total bilirubin 3.8, AST 132, ALT 407, alkaline phosphatase 83. LDH 2059. CK 272. Patient's IV fluids were switched to D5 yesterday at 150 mL per hour and IV Lasix was discontinued with improvement of his sodium. Patient pulled out his central line. Prognosis is guarded. 10/27: Patient is afebrile, heart rate 96, respiratory rate 27, blood pressure 120/72, pulse ox 90-95 percent on AirVo with FiO2 of 70%. Patient was decreased to 55% and he seems to be desats into the low 80s. Repeat blood work reveals WBC 14.4, hemoglobin 10.3, platelet count 104. Sodium 145, potassium 4.5, chloride 115, CO2 22, BUN 112 and creatinine 2.12. Blood sugars running between 186 and 290. Phosphorus 5.2, magnesium 3.2, total bilirubin 3.4, AST 97, ALT 310, alkaline phosphatase 75. C-reactive protein 6.4. Patient has been started on TPN. 10/28: She remains on AirVo with pulse ox in the low 90s, he has soft restraints in place, mild confusion. Patient has been afebrile, heart rate 96, blood pressure 122/66. Respiratory rate 20-30. Repeat blood work reveals WBC 15.1, hemoglobin 9.9, platelet count 97. D-dimer 2.83. BUN 100 and creatinine 1.88. Magnesium 3.0. Ferritin 1385, AST 116, ALT 279, alkaline phosphatase 83, CK 479. Repeat chest x-ray reveals scattered interstitial infiltrates persist. Patient has been seen by nephrology with recommendations to decrease IV fluids, DC phosphorus and TPN. Renal ultrasound revealed nonvisualization of the left kidney. Right kidney demonstrates no evidence of hydronephrosis or nephrolithiasis. Cortical thinning suggest chronic medical renal disease. 10/29: Patient remains in the intensive care unit, mild confusion, no restraints in place. Pulse ox is running about 90 on nonrebreather mask and high flow nasal cannula. Patient has been afebrile, heart rate 103, respiratory rate 32, blood pressure 136/60. Monitor is sinus rhythm. Repeat blood work reveals sodium 145, potassium 4.0, chloride 115, CO2 26, BUN 797 and creatinine 1.39. Blood sugars running 189-225. Insulin will be increased to 15 units Levemir daily and add NovoLog 3 units with meals and before bed and continue NovoLog scale. The patient is refusing all meals only able to eat a few bites. He is on TPN and dextrose IV fluids. 10/30: Patient remains on both nonrebreather and AirVO with pulse ox in the low 90s up to 95. Respiratory rate 32, heart rate 92, afebrile, blood pressure 133/75. Repeat blood work reveals WBC 12.9, hemoglobin 9.2, platelet count 92. D-dimer 2.73. Creatinine 1.01. Blood sugar 162-188. Phosphorus 2.8, magnesium 2.5, potassium 3.5. LDH 2626. C-reactive protein 11.9. Patient has held all 4 agitation area he is continued on IV Solu-Medrol 60 mg every 6 hours, anticoagulation is with Xarelto. Patient is on TPN. 10/31: Patient remains on nonrebreather and airvo pulse ox is low 90s but respiratory rate is in the 30s and 40s, heart rate 109, blood pressure 157/88. Patient is unable to take his medications orally. Dr. Rivero is planning to contact the patient's regarding CODE STATUS. Repeat blood work reveals WBC 15.8, hemoglobin 9.3, platelet count 85. CO2 21, BUN 56 and creatinine 1.03. Blood sugars running between 178 and 237. Insulin increased to Levemir 20 units daily. Total bilirubin 3.6, AST 102, ALT 250, alkaline phosphatase 141. Magnesium 2.4. Potassium 4.3. LDH 2947, CK 335, C-reactive protein 27.8. 11/01: Patient's family made him comfort care and he on 11/01. Please see nursing documentation or details. ASSESSMENT AND PLAN 1. Acute SARS COV2, infection with acute hypoxic respiratory failure. 2. Thrombocytopenia secondary to COVID 19 infection. 3. Acute kidney injury secondary to dehydration, poor oral intake. 4. Chronic anticoagulation, secondary to history of DVT. 5. History of DVT of the right leg in December 2013, resolved. 6. COPD. 7. Hyperlipidemia. 8. Subclavian steal syndrome status post stent in the right carotid. 9. Benign prostatic hypertrophy. 10. History of coronary artery disease with previous myocardial infarction. 11. Obstructive Sleep apnea. 12. Gastroesophageal reflux disease. 13. Hypertension. 14. Recurrent Depression. 15. History of ADHD. 16. Chronic kidney disease stage III, stable 17. Chronic systolic heart failure and ischemic cardiomyopathy with prior ejection fraction 40%. 18. Hyperglycemia secondary to steroids and TPN. 10. Metabolic encephalopathy secondary to Covid. Impression and plan of care have been directed as dictated by the signing physician. Nena Frausto nurse practitioner acting as scribe for signing physician. Plan - Discharge Summary Discharge Rx Participant: Yes New Discharge Prescriptions: No Action Betamethasone Dipropionate [Diprolene AF 0.05% Cream] 1 applic TOPICAL DAILY PRN PRN Reason: Rash Budesonide-Formot 160-4.5 Mcg [Symbicort 160-4.5 Mcg Inhaler] 2 puff INHALATION RT-BID Aspirin EC [Ecotrin Low Dose] 81 mg PO DAILY Albuterol Sulfate [Proventil Hfa] 2 puff INHALATION RT-Q6H PRN PRN Reason: Shortness Of Breath Mirtazapine 15 mg PO HS Rivaroxaban [Xarelto] 20 mg PO DAILY Tiotropium 18 Mcg/Puff [Spiriva] 2 puff INHALATION RT-DAILY Rosuvastatin [Crestor] 10 mg PO HS Atomoxetine HCl [Strattera] 40 mg PO DAILY Venlafaxine HCl [Effexor] 150 mg PO BID Atomoxetine HCl [Strattera] 60 mg PO DAILY Furosemide [Lasix] 40 mg PO DAILY Allopurinol [Zyloprim] 300 mg PO DAILY Multivitamins, Thera [Multivitamin (formulary)] 1 tab PO DAILY Pantoprazole Sodium [Protonix] 40 mg PO DAILY Cholecalciferol [Vitamin D3 (25 Mcg = 1000 Iu)] 125 mcg PO DAILY Zolpidem [Ambien] 5 mg PO HS Metoprolol Succinate (ER) [Toprol XL] 75 mg PO DAILY levETIRAcetam [Keppra] 500 mg PO BID Nebivolol HCl [Bystolic] 10 mg PO DAILY Loratadine [Claritin] 10 mg PO DAILY Discharge Medication List Aspirin EC [Ecotrin Low Dose] 81 mg PO DAILY 09/16/15 [History] Betamethasone Dipropionate [Diprolene AF 0.05% Cream] 1 applic TOPICAL DAILY PRN 09/16/15 [History] Budesonide-Formot 160-4.5 Mcg [Symbicort 160-4.5 Mcg Inhaler] 2 puff INHALATION RT-BID 09/16/15 [History] Albuterol Sulfate [Proventil Hfa] 2 puff INHALATION RT-Q6H PRN 01/13/17 [History] Mirtazapine 15 mg PO HS 01/13/17 [History] Rivaroxaban [Xarelto] 20 mg PO DAILY 01/13/17 [History] Tiotropium 18 Mcg/Puff [Spiriva] 2 puff INHALATION RT-DAILY 01/13/17 [History] Atomoxetine HCl [Strattera] 40 mg PO DAILY 01/31/17 [History] Atomoxetine HCl [Strattera] 60 mg PO DAILY 01/31/17 [History] Rosuvastatin [Crestor] 10 mg PO HS 01/31/17 [History] Venlafaxine HCl [Effexor] 150 mg PO BID 01/31/17 [History] Furosemide [Lasix] 40 mg PO DAILY 08/11/17 [History] Allopurinol [Zyloprim] 300 mg PO DAILY 11/09/18 [History] Multivitamins, Thera [Multivitamin (formulary)] 1 tab PO DAILY 12/25/18 [History] Pantoprazole Sodium [Protonix] 40 mg PO DAILY 12/25/18 [History] Cholecalciferol [Vitamin D3 (25 Mcg = 1000 Iu)] 125 mcg PO DAILY 10/09/20 [History] Loratadine [Claritin] 10 mg PO DAILY 10/09/20 [History] Metoprolol Succinate (ER) [Toprol XL] 75 mg PO DAILY 10/09/20 [History] Nebivolol HCl [Bystolic] 10 mg PO DAILY 10/09/20 [History] Zolpidem [Ambien] 5 mg PO HS 10/09/20 [History] levETIRAcetam [Keppra] 500 mg PO BID 10/09/20 [History] Follow up Appointment(s)/Referral(s): Bernabe Polo DO [Primary Care Provider] - 1-2 days Discharge Disposition: - Preliminary Cause of Preliminary Cause of : COVID19 pneumonia
== END 2020-11-01 18:30 | disposition expired | DRG 177 ==
LOC: EC 20:01 → 3SCARD 23:00 → 2SICU 10-14 15:36
PROVIDERS: ADMIT Family Medicine; ATTEND Family Medicine
PROC: 5A0955A Assistance with Respiratory Ventilation, Greater than 96 Consecutive Hours, High Flow/Velocity Cannula (ICD-10-PCS; 2020-10-11)
PROC: XW033H5 Introduction of Tocilizumab into Peripheral Vein, Percutaneous Approach, New Technology Group 5 (ICD-10-PCS; principal; 2020-10-12)
PROC: 02HV33Z Insertion of Infusion Device into Superior Vena Cava, Percutaneous Approach (ICD-10-PCS; 2020-10-15)
PROC: 06HM33Z Insertion of Infusion Device into Right Femoral Vein, Percutaneous Approach (ICD-10-PCS; 2020-10-22)
PROC: 4A133B1 Monitoring of Arterial Pressure, Peripheral, Percutaneous Approach (ICD-10-PCS; 2020-10-22)
PROC: 03HY32Z Insertion of Monitoring Device into Upper Artery, Percutaneous Approach (ICD-10-PCS; 2020-10-22)
PROC: 4A133J1 Monitoring of Arterial Pulse, Peripheral, Percutaneous Approach (ICD-10-PCS; 2020-10-22)
PROC: 5A09557 Assistance with Respiratory Ventilation, Greater than 96 Consecutive Hours, Continuous Positive Airway Pressure (ICD-10-PCS; 2020-10-22)
PROC: 02HV33Z Insertion of Infusion Device into Superior Vena Cava, Percutaneous Approach (ICD-10-PCS; 2020-10-26)
PROC: 3E0436Z Introduction of Nutritional Substance into Central Vein, Percutaneous Approach (ICD-10-PCS; 2020-10-26)
DX: U07.1 COVID-19 (principal); J12.82 Pneumonia due to coronavirus disease 2019; J96.21 Acute and chronic respiratory failure with hypoxia; N17.0 Acute kidney failure with tubular necrosis; G93.41 Metabolic encephalopathy; J15.9 Unspecified bacterial pneumonia; D89.835 Cytokine release syndrome, grade 5; A08.39 Other viral enteritis; E87.0 Hyperosmolality and hypernatremia; I13.0 Hypertensive heart and chronic kidney disease with heart failure and stage 1 through stage 4 chronic kidney disease, or unspecified chronic kidney disease; F33.9 Major depressive disorder, recurrent, unspecified; I50.22 Chronic systolic (congestive) heart failure; J44.0 Chronic obstructive pulmonary disease with (acute) lower respiratory infection; J44.1 Chronic obstructive pulmonary disease with (acute) exacerbation; E83.39 Other disorders of phosphorus metabolism; D63.1 Anemia in chronic kidney disease; E11.51 Type 2 diabetes mellitus with diabetic peripheral angiopathy without gangrene; E11.22 Type 2 diabetes mellitus with diabetic chronic kidney disease; E11.65 Type 2 diabetes mellitus with hyperglycemia; N18.30 Chronic kidney disease, stage 3 unspecified; E86.0 Dehydration; J98.4 Other disorders of lung; Z66 Do not resuscitate; Z51.5 Encounter for palliative care; J98.6 Disorders of diaphragm; D69.59 Other secondary thrombocytopenia; R54 Age-related physical debility; I25.5 Ischemic cardiomyopathy; G47.33 Obstructive sleep apnea (adult) (pediatric); K21.9 Gastro-esophageal reflux disease without esophagitis; E78.5 Hyperlipidemia, unspecified; N40.1 Benign prostatic hyperplasia with lower urinary tract symptoms; R33.8 Other retention of urine; I25.10 Atherosclerotic heart disease of native coronary artery without angina pectoris; T38.0X5A Adverse effect of glucocorticoids and synthetic analogues, initial encounter; N28.1 Cyst of kidney, acquired; M19.90 Unspecified osteoarthritis, unspecified site; E66.9 Obesity, unspecified; F43.10 Post-traumatic stress disorder, unspecified; F90.9 Attention-deficit hyperactivity disorder, unspecified type; I25.2 Old myocardial infarction; Z68.32 Body mass index [BMI] 32.0-32.9, adult; Z99.81 Dependence on supplemental oxygen; Z79.51 Long term (current) use of inhaled steroids; Z79.2 Long term (current) use of antibiotics; Z79.01 Long term (current) use of anticoagulants; Z79.82 Long term (current) use of aspirin; Z79.899 Other long term (current) drug therapy; Z86.718 Personal history of other venous thrombosis and embolism; Z86.711 Personal history of pulmonary embolism; Z85.828 Personal history of other malignant neoplasm of skin; Z96.643 Presence of artificial hip joint, bilateral; Z96.653 Presence of artificial knee joint, bilateral; Z96.612 Presence of left artificial shoulder joint; Z96.611 Presence of right artificial shoulder joint; Z95.820 Peripheral vascular angioplasty status with implants and grafts; Z96.0 Presence of urogenital implants; Z85.46 Personal history of malignant neoplasm of prostate; Z87.891 Personal history of nicotine dependence; Z71.3 Dietary counseling and surveillance; Z78.1 Physical restraint status; Z95.1 Presence of aortocoronary bypass graft; Z98.890 Other specified postprocedural states; Z91.011 Allergy to milk products; Z88.8 Allergy status to other drugs, medicaments and biological substances; Z91.018 Allergy to other foods; Z80.1 Family history of malignant neoplasm of trachea, bronchus and lung; Z82.49 Family history of ischemic heart disease and other diseases of the circulatory system; Z82.3 Family history of stroke
CPT/HCPCS: 36415; 36573; 36600; 71045; 76770; 80048; 80053; 81001; 82330; 82550; 82553; 82728; 82805; 83605; 83615; 83625; 83721; 83735; 83880; 84100; 84145; 84478; 84484; 85025; 85027; 85379; 85384; 85610; 85652; 85730; 86140; 87635; 93005; 94640; 94660; 94760; 99285